=== PATIENT | female | born 1945 | race Caucasian/White ===

== ENCOUNTER 2023-11-30 13:13 | Outpatient (AMB) | payer MEDICARE, SELFPAY ==
--- NOTE | 2023-11-30 13:11 | MHC.PC.OV ---
Vital Signs 11/30/23 13:45 Height 17.32 in Weight 136 lb 6 oz BMI 319.6 BP 128/72 Blood Pressure Location Lt brachial Position Sitting Pulse 98 Pulse Source Pulse Oximeter Temp 98.3 F Temp Source Oral Pulse Oximetry (%) 96 Oxygen Delivery Method Room Air Intake Visit Reasons: Establish Care transfer from [facility] Intake Note: New patient visit . heart murmur noticed before bladder botox. SOB walking up the stairs. Tower Operator Required: No Accompanied by: Daughter Allergies cefdinir Allergy (Unknown, Verified 11/30/23 13:13) Rash Sulfa (Sulfonamide Antibiotics) Allergy (Unknown, Verified 11/30/23 13:13) Itching trimethoprim Allergy (Unknown, Verified 11/30/23 13:13) Rash Tobacco use date assessed: 11/30/23 Fall risk assessment: 1 Fall in past year Last assessed Fall Risk: 11/30/23 Dental Screening Dental Screen Date: 11/30/23 Did you have a dental visit in the last 12 months?: Yes Did you have a dental problem in the last 6 months where you did not have access to dental care?: No Was dental information given to patient?: Patient has dentist HPI HPI Comments History of Present Illness Details 78 y/o female with a past medical history of parkinsons, diabetes, depression, asthma/copd, OAB, recurrent UTI presenting for follow up Continues to follow with neurology for Parkinsons. No recent medication changes Depression is well controlled on sertraline Diabetes is well controlled on glipizide. On ARB. utd eye exam [facility] Medical History (Updated 12/05/23 @ 10:51 by Andree Lindquist MD) Type 2 diabetes mellitus Spinal stenosis Seasonal allergies Parkinson disease Muscle cramps Moderate aortic stenosis (~11/30/23) Hypertension History of DVT (deep vein thrombosis) High cholesterol Frequent UTI Dysphagia COVID-19 Atypical chest pain Arthritis Anxiety Angina pectoris Family History (Updated 11/30/23 @ 13:40 by Afia Roman CMA) Father Substance abuse Alcoholism Social History (Updated 11/30/23 @ 13:41 by Afia Roman CMA) [facility] Patient Tobacco Use Status: Former Tobacco user Cigarette Packs Per Day: 1.5 Years Smoked: 34 years e-Cigarette/Vaping Use: Never Used Second Hand Smoke Exposure: Yes service: No Current occupational status: retired Cognitive needs: No Hearing needs: No Vision needs: Yes (reading glasses) Questionnaire PHQ-9 Over the last 2 weeks, how often have you been bothered by any of the following problems? 1. Little interest or pleasure in doing things: not at all 2. Feeling down, depressed, or hopeless: not at all 3. Trouble falling or staying asleep, or sleeping too much: more than half the days 4. Feeling tired or having little energy: more than half the days 5. Poor appetite or overeating: not at all 6. Feeling bad about yourself - or that you are a failure or have let yourself or your family down: not at all 7. Trouble concentrating on things, such as reading the newspaper or watching television: not at all 8. Moving or speaking so slowly that other people could have noticed. Or the opposite - being so fidgety or restless that you have been moving around a lot more than usual: not at all 9. Thoughts that you would be better off or of hurting yourself in some way: not at all Total score: 4 Depression Screening Interpretation: Positive Depression Screening Done: Yes 61617 - PHQ-9 Billing: Yes Source: Developed by Drs. Eduardo Foss, Sara Mcclure, Pascual Willoughby and colleagues, with an educational jamee from [employer]. Thrive Questionnaire Date Thrive assessed: 11/30/23 I am a: Patient What is your living situation today?: I have a steady place to live Within the past 12 months, did the food you bought not last and you didn't have the money to get more?: Never true Within the past 12 months, did you worry whether your food would run out before you got money to buy more?: Never true Do you have trouble paying for medicines?: No Do you have trouble getting transportation to medical appointments?: No Do you have trouble paying your heating and electricity bill?: No Do you have trouble taking care of your child, family member or friend?: No Do you have trouble with day-to-day activities such as bathing, preparing meals, shopping, managing finances, etc.?: No Are you currently unemployed and looking for a job?: No Are you interested in more education?: No Please select the resources that you would like help with: None Currently or been in a relationship where the following occur: no concerns reported THRIVE Score: 0 AUDIT C Alcohol Use Questionnaire (AUDIT-C) 1. How often do you have a drink containing alcohol?: Never 3. How often do you have six or more drinks on one occasion?: Never Total Score: 0 DREW-7 AMB Questionnaire DREW-7 Date DREW - 7 assessed: 11/30/23 Feeling nervous, anxious, or on edge: 0 = Not at all Not being able to stop or control worryin = Not at all Worrying too much about different things: 0 = Not at all Trouble relaxin = Not at all Being so restless that it is hard to sit still: 0 = Not at all Becoming easily annoyed or irritable: 0 = Not at all Feeling afraid as if something awful might happen: 0 = Not at all Total DREW-7 score (0-4 normal; 5-9 mild; 10-14 moderate; 15-21 severe): 0 Source: Developed by Drs. Eduardo Foss, Sara Mcclure, Pascual Willoughby and colleagues, with an educational jamee from [employer]. DREW-7 Assessment Billing DREW-7 Assessment Tool: DREW-7 Assessment 04103 Review of Systems Const Details: ROS CONSTITUTIONAL: Denies weight loss, fever and chills. HEENT: Denies changes in vision and hearing. RESPIRATORY: Denies SOB and cough. CV: Denies palpitations and CP GI: Denies abdominal pain, nausea, vomiting and diarrhea. : Denies dysuria and urinary frequency. MSK: Denies new myalgia and joint pain. SKIN: Denies rash and pruritus. NEUROLOGICAL: Denies headache PSYCHIATRIC: Denies recent changes in mood. Physical exam (Primary Care) Vital Signs: Last Vital Signs Temp 98.3 F 11/30/23 13:45 Pulse 98 11/30/23 13:45 BP 128/72 11/30/23 13:45 Pulse Ox 96 11/30/23 13:45 Oxygen Delivery Method Room Air 11/30/23 13:45 PHYSICAL EXAM: GENERAL: Alert and oriented x 3. NAD EYES: EOMI. Anicteric. HENT: Moist mucous membranes. No scleral icterus. No cervical lymphadenopathy. LUNGS: Clear to auscultation bilaterally. CARDIOVASCULAR: Regular rate and rhythm. 4/5 systolic murmur ABDOMEN: Soft, non-tender +bs EXTREMITIES: No edema. Non-tender. SKIN: No rashes or lesions. Warm. NEUROLOGIC: No focal neurological deficits. PSYCHIATRIC: Cooperative. Appropriate mood and affect BMI result Body Mass Index 319.6 Tobacco/Smoking Status: Tobacco use Status Tobacco use date assessed 11/30/23 11/30/23 13:43 Patient Tobacco Use Status Former Tobacco user 11/30/23 13:43 e-Cigarette/Vaping Use Never Used 11/30/23 13:43 PHQ-9: PHQ-9 Score PHQ-9: Total score 4 11/30/23 13:52 Depression Screening Interpretation: Positive Thrive Assessment: Date of Thrive Assessment Date Thrive assessed 11/30/23 11/30/23 13:52 Currently or been in a relationship where the following occur: no concerns reported Assessment and Plan Assessment & Plan (1) Hypertension: Comment: adequately controlled Code(s): I10 - Essential (primary) hypertension Qualifiers: Hypertension type: primary hypertension Qualified Code(s): I10 - Essential (primary) hypertension (2) Moderate aortic stenosis: Onset Date: ~11/30/23 Comment: Echo ordered Code(s): I35.0 - Nonrheumatic aortic (valve) stenosis (3) Parkinson disease: Code(s): G20.A1 - Parkinson's disease without dyskinesia, without mention of fluctuations Qualifiers: Dyskinesia presence: unspecified whether dyskinesia Fluctuating manifestations: with fluctuating manifestations Qualified Code(s): G20.A2 - Parkinson's disease without dyskinesia, with fluctuations (4) Type 2 diabetes mellitus: Code(s): E11.9 - Type 2 diabetes mellitus without complications Qualifiers: Diabetes mellitus concrete paving machine operator insulin use: without concrete paving machine operator use Diabetes mellitus complication status: with neurologic complications Diabetes mellitus complication detail: with polyneuropathy Qualified Code(s): E11.42 - Type 2 diabetes mellitus with diabetic polyneuropathy Orders: Orders CA echo transthoracic complete 11/30/23 E11.9 - Type 2 diabetes mellitus without complications, G20.A1 - Parkinson's disease without dyskinesia, without mention of fluctuations, I10 - Essential (primary) hypertension, I35.0 - Nonrheumatic aortic (valve) stenosis IRON PROFILE 11/30/23 E11.9 - Type 2 diabetes mellitus without complications, G20.A1 - Parkinson's disease without dyskinesia, without mention of fluctuations, I10 - Essential (primary) hypertension, I35.0 - Nonrheumatic aortic (valve) stenosis Complete Blood Count Auto Diff 11/30/23 E11.9 - Type 2 diabetes mellitus without complications, G20.A1 - Parkinson's disease without dyskinesia, without mention of fluctuations, I10 - Essential (primary) hypertension, I35.0 - Nonrheumatic aortic (valve) stenosis Hemoglobin A1c 11/30/23 E11.9 - Type 2 diabetes mellitus without complications, G20.A1 - Parkinson's disease without dyskinesia, without mention of fluctuations, I10 - Essential (primary) hypertension, I35.0 - Nonrheumatic aortic (valve) stenosis Medications: New sertraline 100 mg PO DAILY 90 tabs 3RF 90 days Coding Level of Care Code Est Pt Level 5 (14559) Diagnoses Primary hypertension I10 Hypertension type: primary hypertension Moderate aortic stenosis I35.0 Parkinson's disease with fluctuating manifestations, unspecified whether dyskinesia present G20.A2 Dyskinesia presence: unspecified whether dyskinesia Fluctuating manifestations: with fluctuating manifestations Type 2 diabetes mellitus with diabetic polyneuropathy, without long-term current use of insulin E11.42 Diabetes mellitus concrete paving machine operator insulin use: without concrete paving machine operator use Diabetes mellitus complication status: with neurologic complications Diabetes mellitus complication detail: with polyneuropathy Additional Codes DREW-7 Assessment Billing - DREW-7 Assessment Tool: DREW-7 Assessment 55118 ([id number]) Time Spent (min) 65
[2023-11-30 13:45] VITALS: BP 128/72; PULSE 98; TEMP 36.8; O2SAT 96; BMI 319.6
== END 2023-11-30 14:14 | disposition home or self-care (01) ==
PROVIDERS: PCP Internal Medicine; Visit Provider Internal Medicine
DX: I10 Essential (primary) hypertension (principal); I35.0 Nonrheumatic aortic (valve) stenosis; G20.A2 Parkinson's disease without dyskinesia, with fluctuations; E11.42 Type 2 diabetes mellitus with diabetic polyneuropathy
CPT/HCPCS: 99215

== ENCOUNTER 2023-12-10 10:09 | Outpatient (REF) | payer MEDICARE, OTHER, SELFPAY ==
[2023-12-10 11:21] LABS: MANUAL DIFF FLAG NO
[2023-12-10 11:27] LABS: Basophils Percent Auto 0.2 % (0-2); Eosinophils Absolute Auto 0.2 X10*3/uL (0.0-0.4); Eosinophils Percent Auto 2.4 % (0-4); Hematocrit 34.9 % (37.0-47.0); Hemoglobin 10.7 g/dl (12.0-16.0); Imm Gran Abs Auto 0.01 X10*3/uL (0.00-0.03); Imm Gran Pct Auto 0.2 % (0.0-0.4); Lymphocytes Absolute Auto 1.2 X10*3/uL (1.2-4.9); Lymphocytes Percent Auto 18.1 % (20-40); Mean Corpuscular HGB Conc 30.7 g/dl (31.0-35.0); Mean Corpuscular Hemoglobin 24.6 pg (27.0-33.0); Mean Corpuscular Volume 80.2 fL (80.0-98.0); Mean Platelet Volume 10.4 fL (9.4-12.3); Monocytes Absolute Auto 0.4 X10*3/uL (0.1-1.2); Monocytes Percent Auto 6.3 % (2-11); Neutrophils Absolute Auto 4.6 x10*3/uL (2.0-8.3); Neutrophils Percent Auto 72.8 % (45-73); Platelet Count 277 X10*3/uL (160-400); Red Blood Count 4.35 X10*6/uL (4.20-5.50); Red Cell Distribution Width 16.9 % (11.0-16.0); White Blood Count 6.3 X10*3/uL (4.8-10.8)
[2023-12-10 11:35] LABS: Estimated Average Glucose 131 mg/dL; Hemoglobin A1c % 6.2 % (<6.0)
[2023-12-10 12:12] LABS: Iron 22 mcg/dL (30-160); Percent Iron Saturation 5 % (15-50); Total Iron Binding Capacity 457 mcg/dL (228-428); Unsaturated Iron Binding 435 ug/dL
== END 2023-12-10 10:10 | disposition home or self-care (01) ==
LOC: HO.WFDLDS 10:09
PROVIDERS: Visit Provider Internal Medicine
DX: I35.0 Nonrheumatic aortic (valve) stenosis (principal); I10 Essential (primary) hypertension; E11.9 Type 2 diabetes mellitus without complications; G20.A1 Parkinson's disease without dyskinesia, without mention of fluctuations
CPT/HCPCS: 36415; 83036; 83540; 85025

== ENCOUNTER 2024-05-30 08:04 | Outpatient (AMB) | payer MEDICARE, OTHER, SELFPAY ==
--- NOTE | 2024-05-30 08:10 | MHC.PC.OV ---
Intake Visit Reasons: cpe coming in at 8 (r/s from 05/29/24) Intake Note: Medical Wellnness visit. Having valve replacement surgery coming up. Paper Hanger Required: No Allergies cefdinir Allergy (Unknown, Verified 05/30/24 08:19) Rash Sulfa (Sulfonamide Antibiotics) Allergy (Unknown, Verified 05/30/24 08:19) Itching trimethoprim Allergy (Unknown, Verified 05/30/24 08:19) Rash Tobacco use date assessed: 11/30/23 Fall risk assessment: 2 + Falls in past year Last assessed Fall Risk: 05/30/24 Dental Screening Dental Screen Date: 11/30/23 HPI HPI Comments History of Present Illness Details 78 y/o female with a past medical history of parkinsons, diabetes, depression, asthma/copd, OAB, recurrent UTI presenting for AWV Continues to follow with neurology for Parkinsons in [place]. Appt later today. Goes to speech therapy there as well. No recent medication changes Depression is well controlled on sertraline Diabetes is well controlled on glipizide. On ARB. utd eye exam. A1C today is 6.4%. GI: Follows with Dr Pereira. History of biliary cirrhosis, diverticulosis. Sees 2x/year Following with cardiology. Upcoming TAVR. Mammogram-Jul due Memory 09/11 No recent falls HRA Needs help with travel, bathing, dressing, driving otherwise independent ROS CONSTITUTIONAL: Denies weight loss, fever and chills. HEENT: Denies changes in vision and hearing. RESPIRATORY: Denies SOB and cough. CV: Denies palpitations and CP GI: Denies abdominal pain, nausea, vomiting and diarrhea. : Denies dysuria and urinary frequency. MSK: Denies new myalgia and joint pain. SKIN: Denies rash and pruritus. NEUROLOGICAL: Denies headache PSYCHIATRIC: Denies recent changes in mood. PHYSICAL EXAM: GENERAL: Alert and oriented x 3. NAD EYES: EOMI. Anicteric. HENT: Moist mucous membranes. No scleral icterus. No cervical lymphadenopathy. LUNGS: Clear to auscultation bilaterally. CARDIOVASCULAR: Regular rate and rhythm. No murmur. No JVD. ABDOMEN: Soft, non-tender +bs EXTREMITIES: No edema. Non-tender. SKIN: No rashes or lesions. Warm. NEUROLOGIC: No focal neurological deficits. resting tremor PSYCHIATRIC: Cooperative. Appropriate mood and affect [facility] Medical History (Updated 05/30/24 @ 13:39 by Andree Lindquist MD) Type 2 diabetes mellitus Spinal stenosis Seasonal allergies Parkinson disease Muscle cramps Moderate aortic stenosis (~11/30/23) Hypertension History of DVT (deep vein thrombosis) High cholesterol Frequent UTI Dysphagia COVID-19 Atypical chest pain Arthritis Anxiety Angina pectoris Family History Father Substance abuse Alcoholism Social History (Updated 05/30/24 @ 08:26 by fAia Roman CMA) Housing: Condominium Alcohol intake: former Patient Tobacco Use Status: Former Tobacco user Cigarette Packs Per Day: 1.5 Years Smoked: 34 years e-Cigarette/Vaping Use: Never Used Second Hand Smoke Exposure: Yes service: No Current occupational status: retired Cognitive needs: No Hearing needs: No Vision needs: Yes (reading glasses) Questionnaire PHQ-9 Over the last 2 weeks, how often have you been bothered by any of the following problems? 1. Little interest or pleasure in doing things: not at all Source: Developed by Drs. Eduardo Foss, Sara Mcclure, Pascual Willoughby and colleagues, with an educational jamee from [employer]. Thrive Questionnaire Date Thrive assessed: 11/30/23 DREW-7 AMB Questionnaire DREW-7 Date DREW - 7 assessed: 11/30/23 Source: Developed by Drs. Eduardo Foss, Pascual Rosado and colleagues, with an educational jamee from [employer]. Physical exam (Primary Care) Tobacco/Smoking Status: Tobacco use Status Tobacco use date assessed 11/30/23 05/30/24 08:11 Patient Tobacco Use Status Former Tobacco user 05/30/24 08:26 e-Cigarette/Vaping Use Never Used 05/30/24 08:26 Thrive Assessment: Date of Thrive Assessment Date Thrive assessed 11/30/23 05/30/24 08:11 Results AMB Hemoglobin A1c AMB Hemoglobin A1c 6.4 % Last Edit by Afia Roman CMA on 05/30/24 08:36 Results Reviewed Results Reviewed: Laboratory Last Values Hgb A1c (Clinic) 6.4 % (4.0-6.0) H 05/30/24 08:27 Coding Level of Care Code Est Pt Level 4 (67722) Diagnoses Encounter for annual wellness visit (AWV) in Medicare patient Z00.00 Parkinson's disease with fluctuating manifestations, unspecified whether dyskinesia present G20.A2 Dyskinesia presence: unspecified whether dyskinesia Fluctuating manifestations: with fluctuating manifestations Type 2 diabetes mellitus with diabetic polyneuropathy, without long-term current use of insulin E11.42 Diabetes mellitus complication detail: with polyneuropathy Diabetes mellitus complication status: with neurologic complications Diabetes mellitus half-way insulin use: without director long term care use Assessment & Plan Assessment & Plan (1) Encounter for annual wellness visit (AWV) in Medicare patient: Code(s): Z00.00 - Encounter for general adult medical examination without abnormal findings Category: Medical Plan: HRA reviewed. Care team updated Medication list reconciled Has HCP in place (2) Parkinson disease: Code(s): G20.A1 - Parkinson's disease without dyskinesia, without mention of fluctuations Category: Medical Qualifiers: Dyskinesia presence: unspecified whether dyskinesia Fluctuating manifestations: with fluctuating manifestations Qualified Code(s): G20.A2 - Parkinson's disease without dyskinesia, with fluctuations Plan: continue neurology follow up (3) Type 2 diabetes mellitus: Code(s): E11.9 - Type 2 diabetes mellitus without complications Category: Medical Qualifiers: Diabetes mellitus complication detail: with polyneuropathy Diabetes mellitus complication status: with neurologic complications Diabetes mellitus director long term care insulin use: without director long term care use Qualified Code(s): E11.42 - Type 2 diabetes mellitus with diabetic polyneuropathy Plan: Well controlled. Orders: Orders AMB Hemoglobin A1c Today E11.42 - Type 2 diabetes mellitus with diabetic polyneuropathy Comprehensive Met. Panel Today D64.9 - Anemia, unspecified, E11.42 - Type 2 diabetes mellitus with diabetic polyneuropathy Vitamin D 1,25 dihydroxy Today D64.9 - Anemia, unspecified, E11.42 - Type 2 diabetes mellitus with diabetic polyneuropathy IRON PROFILE Today D64.9 - Anemia, unspecified, E11.42 - Type 2 diabetes mellitus with diabetic polyneuropathy Complete Blood Count Auto Diff Today D64.9 - Anemia, unspecified, E11.42 - Type 2 diabetes mellitus with diabetic polyneuropathy MM screening mammo BI Today Z12.31 - Encounter for screening mammogram for malignant neoplasm of breast Medications: New pantoprazole 40 mg PO DAILY 90 tabs 3RF losartan 75 mg (1.5 x 50 mg) PO DAILY 90 tabs 3RF Lactobacillus acidophilus 100 mmu cells PO DAILY 90 caps 3RF Changed From metformin ER 2 tab oral am, 1 tab oral pm 270 tabs 5RF To metformin ER 500 mg PO DAILY 90 tabs 3RF 90 days
== END 2024-05-30 08:54 | disposition home or self-care (01) ==
LOC: HO.HMCFM 08:04
PROVIDERS: PCP Internal Medicine; Visit Provider Internal Medicine
DX: Z00.00 Encounter for general adult medical examination without abnormal findings (principal); G20.A2 Parkinson's disease without dyskinesia, with fluctuations; E11.42 Type 2 diabetes mellitus with diabetic polyneuropathy

== ENCOUNTER 2024-05-30 09:06 | Outpatient (REF) | payer MEDICARE, OTHER, SELFPAY ==
[2024-05-30 11:09] LABS: MANUAL DIFF FLAG NO
[2024-05-30 11:21] LABS: Basophils Percent Auto 0.2 % (0-2); Eosinophils Absolute Auto 0.1 X10*3/uL (0.0-0.4); Eosinophils Percent Auto 1.8 % (0-4); Hematocrit 32.7 % (37.0-47.0); Hemoglobin 10.2 g/dl (12.0-16.0); Imm Gran Abs Auto 0.01 X10*3/uL (0.00-0.03); Imm Gran Pct Auto 0.2 % (0.0-0.4); Lymphocytes Absolute Auto 1.1 X10*3/uL (1.2-4.9); Mean Corpuscular HGB Conc 31.2 g/dl (31.0-35.0); Mean Corpuscular Hemoglobin 25.2 pg (27.0-33.0); Mean Corpuscular Volume 80.9 fL (80.0-98.0); Mean Platelet Volume 10.2 fL (9.4-12.3); Monocytes Absolute Auto 0.6 X10*3/uL (0.1-1.2); Monocytes Percent Auto 8.8 % (2-11); Neutrophils Absolute Auto 4.5 x10*3/uL (2.0-8.3); Platelet Count 310 X10*3/uL (160-400); Red Blood Count 4.04 X10*6/uL (4.20-5.50); White Blood Count 6.3 X10*3/uL (4.8-10.8)
[2024-05-30 11:34] LABS: Alanine Aminotransferase < 6 U/L (0-31); Albumin Level 4.2 g/dL (3.5-5.0); Alkaline Phosphatase 56 U/L (39-117); Anion Gap 10 (12-20); Aspartate Amino Transferase 23 U/L (5-31); Bilirubin Total 0.2 mg/dL (0.0-1.0); Blood Urea Nitrogen 33 mg/dL (9-16); Calcium 9.5 mg/dL (8.4-10.2); Carbon Dioxide 26 mmol/L (22-29); Chloride 108 mmol/L (96-108); Estimated Glomerular Filt Rate 46; Glucose Random 110 mg/dL (60-115); Iron 26 mcg/dL (30-160); Percent Iron Saturation 5 % (15-50); Potassium 4.4 mmol/L (3.3-5.1); Sodium 140 mmol/L (135-145); Total Iron Binding Capacity 489 mcg/dL (228-428); Total Protein 7.2 g/dL (6.5-8.0); Unsaturated Iron Binding 463 ug/dL
[2024-06-03 16:27] LABS: VITAMIN D (1,25 OH) D3 27 pg/mL; Vit D (1,25-Dihydroxy) Total 27 pg/mL (18-72); Vitamin D (1,25 OH) D2 <8 pg/mL
== END 2024-05-30 09:07 | disposition home or self-care (01) ==
LOC: HO.WFDLDS 09:06
PROVIDERS: Visit Provider Internal Medicine
DX: D64.9 Anemia, unspecified (principal); E11.42 Type 2 diabetes mellitus with diabetic polyneuropathy; Z00.00 Encounter for general adult medical examination without abnormal findings; G20.A2 Parkinson's disease without dyskinesia, with fluctuations; Z79.84 Long term (current) use of oral hypoglycemic drugs; Z79.899 Other long term (current) drug therapy
CPT/HCPCS: 36415; 80053; 82652; 83036; 83540; 85025; 99212

== ENCOUNTER 2024-08-15 11:13 | Outpatient (AMB) | payer MEDICARE, OTHER, SELFPAY ==
--- NOTE | 2024-08-15 11:21 | A.OFFPC_ITS ---
Intake Visit Reasons: [facility] 07/11-07/15 Intake Note: Hospital follow up Allergies cefdinir Allergy (Unknown, Verified 08/15/24 11:22) Rash Sulfa (Sulfonamide Antibiotics) Allergy (Unknown, Verified 08/15/24 11:22) Itching trimethoprim Allergy (Unknown, Verified 08/15/24 11:22) Rash Tobacco use date assessed: 11/30/23 Dental Screening Dental Screen Date: 11/30/23 HPI HPI Comments History of Present Illness Details 78 y/o female with a past medical histor y of parkinsons, diabetes, depression, asthma/copd, OAB, recurrent UTI presenting for hospital discharge follow up She was hospitalized 07/11-07/15/24 at [facility]. She underwent sched uled TAVR for severe aortic stenosis. Dr Mchugh, Dr Nicholas. Course was complicated by CVA-she developed acute left sided weakness. MRI showed evidence of embolic CVA. [facility]. Still getting PT/OT/Speech. She has made good gains with therapy and has gotten a lot of mobility back. Neuro: Recent CVA as above. Has f/up with [facility] neurology in September. Continues to follow with neurology for Parkinsons in [place]. Stable parkinsons. CV: TAVR. Follow up cardiology -had Aug 07 and seeing again Aug 17 Depression is well controlled on sertraline Diabetes is well controlled on glipizide. On ARB. utd eye exam. A1C today is 6.4%. GI: Follows with Dr Pereira. History of biliary cirrhosis, diverticulosis. Sees 2x/year. Appt Aug 31. Uro: Following with urogynecology. Has appt with [facility] on Sep 04. Mammogram-Jul due ROS CONSTITUTIONAL: Denies weight loss, fever and chills. HEENT: Denies changes in vision and hearing. RESPIRATORY: Denies SOB and cough. CV: Denies palpitations and CP GI: Denies abdominal pain, nausea, vomiting and diarrhea. : Denies dysuria and urinary frequency. MSK: Denies new myalgia and joint pain. SKIN: Denies rash and pruritus. NEUROLOGICAL: Denies headache PSYCHIATRIC: Denies recent changes in mood. PHYSICAL EXAM: GENERAL: Alert and oriented x 3. NAD EYES: EOMI. Anicteric. HENT: Moist mucous membranes. No scleral icterus. No cervical lymphadenopathy. LUNGS: Clear to auscultation bilaterally. CARDIOVASCULAR: Regular rate and rhythm. No murmur. No JVD. ABDOMEN: Soft, non-tender +bs EXTREMITIES: No edema. Non-tender. SKIN: No rashes or lesions. Warm. NEUROLOGIC: Improving left sided weakness. resting tremor PSYCHIATRIC: Cooperative. Appropriate mood and affect [facility] Medical History (Updated 08/17/24 @ 09:22 by Andree Lindquist MD) Type 2 diabetes mellitus Spinal stenosis Seasonal allergies Parkinson disease Muscle cramps Moderate aortic stenosis (~11/30/23) Hypertension History of DVT (deep vein thrombosis) High cholesterol Frequent UTI Dysphagia COVID-19 Atypical chest pain Arthritis Anxiety Angina pectoris Surgical History (Updated 08/17/24 @ 09:22 by Andree Lindquist MD) S/P TVR (tricuspid valve replacement) Family History Father Substance abuse Alcoholism Social History (Updated 08/15/24 @ 11:29 by Afia Roman CMA) Housing: Condominium Alcohol intake: former Patient Tobacco Use Status: Former Tobacco user Cigarette Packs Per Day: 1.5 Years Smoked: 34 years e-Cigarette/Vaping Use: Never Used Second Hand Smoke Exposure: Yes service: No Current occupational status: retired Cognitive needs: No Hearing needs: No Vision needs: Yes (reading glasses) Questionnaire PHQ-9 Over the last 2 weeks, how often have you been bothered by any of the following problems? 1. Little interest or pleasure in doing things: not at all 2. Feeling down, depressed, or hopeless: not at all 3. Trouble falling or staying asleep, or sleeping too much: not at all 4. Feeling tired or having little energy: nearly every day 5. Poor appetite or overeating: not at all 6. Feeling bad about yourself - or that you are a failure or have let yourself or your family down: not at all 7. Trouble concentrating on things, such as reading the newspaper or watching television: not at all 8. Moving or speaking so slowly that other people could have noticed. Or the opposite - being so fidgety or restless that you have been moving around a lot more than usual: nearly every day 9. Thoughts that you would be better off or of hurting yourself in some way: not at all Total score: 6 Depression Screening Interpretation: Positive Depression Screening Follow-up: Existing condition Depression Screening Done: Yes 72945 - PHQ-9 Billing: Yes Source: Developed by Drs. Eduardo Foss, Sara Mcclure, Pascual Willoughby and colleagues, with an educational jamee from [employer]. Thrive Questionnaire Date Thrive assessed: 11/30/23 I am a: Parent/Caregiver What is your living situation today?: I have a steady place to live Within the past 12 months, did the food you bought not last and you didn't have the money to get more?: Never true Within the past 12 months, did you worry whether your food would run out before you got money to buy more?: Never true Do you have trouble paying for medicines?: No Do you have trouble getting transportation to medical appointments?: No Do you have trouble paying your heating and electricity bill?: I choose not to answer this question Do you have trouble taking care of your child, family member or friend?: No Do you have trouble with day-to-day activities such as bathing, preparing meals, shopping, managing finances, etc.?: No Are you currently unemployed and looking for a job?: No Are you interested in more education?: No Please select the resources that you would like help with: None Currently or been in a relationship where the following occur: No concerns reported THRIVE Score: 0 AUDIT C Alcohol Use Questionnaire (AUDIT-C) 1. How often do you have a drink containing alcohol?: Never Total Score: 0 DREW-7 AMB Questionnaire DREW-7 Date DREW - 7 assessed: 11/30/23 Feeling nervous, anxious, or on edge: 2 = More than half the days Not being able to stop or control worryin = Not at all Worrying too much about different things: 2 = More than half the days Trouble relaxin = Several days Being so restless that it is hard to sit still: 0 = Not at all Becoming easily annoyed or irritable: 0 = Not at all Feeling afraid as if something awful might happen: 0 = Not at all Total DREW-7 score (0-4 normal; 5-9 mild; 10-14 moderate; 15-21 severe): 5 Source: Developed by Drs. Eduardo Foss, Sara Mcclure, Pascual Willoughby and colleagues, with an educational jamee from [employer]. Physical exam (Primary Care) Tobacco/Smoking Status: Tobacco use Status Tobacco use date assessed 11/30/23 08/15/24 11:24 Patient Tobacco Use Status Former Tobacco user 08/15/24 11:29 e-Cigarette/Vaping Use Never Used 08/15/24 11:29 PHQ-9: PHQ-9 Score PHQ-9: Total score 6 08/16/24 12:54 Depression Screening Interpretation: Positive Depression Screening Follow-up: Existing condition Thrive Assessment: Date of Thrive Assessment Date Thrive assessed 11/30/23 08/15/24 11:24 Currently or been in a relationship where the following occur: No concerns reported Coding Level of Care Code Est Pt Level 5 (64707) Complex EM visit Add On G2211 Diagnoses Hospital discharge follow-up Z09 History of CVA (cerebrovascular accident) Z86.73 S/P TAVR (transcatheter aortic valve replacement) Z95.2 Additional Codes PHQ-9 - 41995 - PHQ-9 Billing: Yes ([id number]) Time Spent (min) 55 Assessment & Plan Assessment & Plan (1) Hospital discharge follow-up: Code(s): Z09 - Encounter for follow-up examination after completed treatment for conditions other than malignant neoplasm Category: Medical Plan: Hospital course reviewed Medications reconciled Continue home services Monitor labs (2) History of CVA (cerebrovascular accident): Code(s): Z86.73 - Personal history of transient ischemic attack (TIA), and cerebral infarction without residual deficits Category: Medical Plan: has appropriate follow up in place Continues AC Residual CVA effects though improving with therapy (3) S/P TAVR (transcatheter aortic valve replacement): Code(s): Z95.2 - Presence of prosthetic heart valve Category: Surgical Plan: continue cardiology follow up. Tolerated procedure well Orders: Orders IRON PROFILE 08/15/24 E11.42 - Type 2 diabetes mellitus with diabetic polyneuropathy, I10 - Essential (primary) hypertension, I35.0 - Nonrheumatic aortic (valve) stenosis Comprehensive Met. Panel 08/15/24 E11.42 - Type 2 diabetes mellitus with diabetic polyneuropathy, I10 - Essential (primary) hypertension, I35.0 - Nonrheumatic aortic (valve) stenosis Complete Blood Count Auto Diff 08/15/24 E11.42 - Type 2 diabetes mellitus with diabetic polyneuropathy, I10 - Essential (primary) hypertension, I35.0 - Nonrheumatic aortic (valve) stenosis Magnesium 08/15/24 E11.42 - Type 2 diabetes mellitus with diabetic polyneuropathy, I10 - Essential (primary) hypertension, I35.0 - Nonrheumatic aortic (valve) stenosis UA CC w/rflx Micro + Cult 08/16/24 R30.0 - Dysuria Medications: New nitrofurantoin macrocrystal must administer with a meal/food 100 mg PO BID 7 days 14 caps 0RF
--- OUTSIDE RECORDS SUMMARY | 2024-08-15 12:08 | XMS_ITS | Encounter Summary ---
Author Organization [facility] Address [address] [place] [address] Care Team Providers Care Beef Grinder Name Role Phone Andree Lindquist MD Primary Care Provider [phone] Encounter Details Date Type Department Care Team (Late st Contact Info) Description 07/24/2024 Lab Requisition [facility] - Main Lab [address] [place] [id number] Mayo Donnelly MD [address] [place] [id number] Encounter for other general examination Social History Tobacco Use Types Packs/Day Years Used Date Smoking Tobacco: Former Cigarettes Q uit: 07/12/1998 Smokeless Tobacco: Never Alcohol Use Standard Drinks/Week Comments No 0 (1 standard drink = 0.6 oz pur e alcohol) Sex and Gender Information Value Date Recorded Sex Assigned at Not on file Gender Identity Not on file Sexual Orientation Not on file documented as of this encounter Plan of Treatment Not on file documented as of this encounter Procedures Procedure Name Priority Date/Time Associated Diagnosis Comments COMPLETE BLOOD COUNT Routine 07/24/2024 5:17 AM EST Encounter for other general examination COMPREHENSIVE METABOLIC PANEL Routine 07/24/2024 5:17 AM EST Encounter for other general examination documented in this encounter Results * (ABNORMAL) Complete blood count (07/24/2024 5:17 AM EST) WBC 6.4 4.8 - 10.8 /[facility] LAB HEMETOLOGY METHOD 07/24/2024 11:31 AM EST [facility] RBC 3.90 3.80 - 4.80 M/mcL LAB HEMETOLOGY METHOD 07/24/2024 11:31 AM [facility] Hemoglobin 9.4(L) 11.5 - 16.0 g/dL LAB HEMETOLOGY METHOD 07/24/2024 11:31 AM [facility] Hematocrit 31.7(L) 35.0 - 47.0 % LAB HEMETOLOGY METHOD 07/24/2024 11:31 AM [facility] MCV 81.1 79.0 - 98.0 FL LAB HEMETOLOGY METHOD 07/24/2024 11:31 AM [facility] MCH 24.0(L) 27.0 - 32.0 pcg LAB HEMETOLOGY METHOD 07/24/2024 11:31 AM [facility] MCHC 29.7(L) 32.0 - 37.0 g/dL LAB HEMETOLOGY METHOD 07/24/2024 11:31 AM [facility] RDW 15.5(H) 11.0 - 15.0 % LAB HEMETOLOGY METHOD 07/24/2024 11:31 AM [facility] Platelets 315 130 - 400 K/mcL LAB HEMETOLOGY METHOD 07/24/2024 11:31 AM [facility] MPV 10.5 7.0 - 11.0 FL LAB HEMETOLOGY METHOD 07/24/2024 11:31 AM [facility] NRBC 0.0 <1.0 % LAB HEMETOLOGY METHOD 07/24/2024 11:31 AM [facility] NRBC Absolute 0.00 <0.10 K/mcL LAB HEMETOLOGY METHOD 07/24/2024 11:31 AM [facility] Blood Venous blood specimen / Unknown Venipuncture / Unknown 07/24/2024 5:17 AM EST 07/24/2024 10:19 AM EST Mayo Donnelly MD LAB BLOOD ORDERABLES [facility] [address] [place] [address], * (ABNORMAL) Comprehensive metabolic panel (07/24/2024 5:17 AM EST) Sodium 132(L) 133 - 145 mmol/L LAB CHEMISTRY METHOD 07/24/2024 12:19 PM [facility] Potassium 5.7(H) 3.5 - 5.5 mmol/L LAB CHEMISTRY METHOD 07/24/2024 12:19 PM [facility] Chloride 108 96 - 110 mmol/L LAB CHEMISTRY METHOD 07/24/2024 12:19 PM [facility] CO2 18(L) 21 - 32 mmol/L LAB CHEMISTRY METHOD 07/24/2024 12:19 PM [facility] Anion Gap 6 3 - 11 LAB CHEMISTRY METHOD 07/24/2024 12:19 PM [facility] Glucose 90 70 - 100 mg/dL LAB CHEMISTRY METHOD 07/24/2024 12:19 PM [facility] BUN 74(H) 5 - 25 mg/dL LAB CHEMISTRY METHOD 07/24/2024 12:19 PM [facility] Creatinine 1.54(H) 0.50 - 1.10 mg/dL LAB CHEMISTRY METHOD 07/24/2024 12:19 PM [facility] eGFR 35(L) >=60 mL/min/1. 73m2 LAB CHEMISTRY METHOD 07/24/2024 12:19 PM [facility] Comment:Calculation based on the??Chronic Kidney Disease Epidemiology Collaboration (CKD-EPI) equation refit??without adjustment for race. BUN/Creatinine Ratio 48.1 LAB CHEMISTRY METHOD 07/24/2024 12:19 PM [facility] Calcium 9.3 8.5 - 10.5 mg/dL LAB CHEMISTRY METHOD 07/24/2024 12:19 PM [facility] AST (SGOT) 20 10 - 42 unit/L LAB CHEMISTRY METHOD 07/24/2024 12:19 PM [facility] ALT (SGPT) 15 10 - 60 unit/L LAB CHEMISTRY METHOD 07/24/2024 12:19 PM [facility] Alkaline Phosphatase 72 42 - 121 unit/L LAB CHEMISTRY METHOD 07/24/2024 12:19 PM [facility] Total Protein 6.7 6.0 - 8.0 g/dL LAB CHEMISTRY METHOD 07/24/2024 12:19 PM [facility] Albumin 3.6 3.2 - 5.0 g/dL LAB CHEMISTRY METHOD 07/24/2024 12:19 PM [facility] Total Bilirubin 0.3 0.0 - 1.4 mg/dL LAB CHEMISTRY METHOD 07/24/2024 12:19 PM [facility] Blood Venous blood specimen / Unknown Venipuncture / Unknown 07/24/2024 5:17 AM EST 07/24/2024 10:19 AM EST Mayo Donnelly MD LAB BLOOD ORDERABLES [facility] [address] [place] [address], documented in this encounter Visit Diagnoses Diagnosis Encounter for other general examination documented in this encounter Care Teams Beef Grinder Relationship Specialty Start Date End Date Andree Lindquist MD PCP - General Internal Medicine 03/19/22 documented as of this encounter
--- OUTSIDE RECORDS SUMMARY | 2024-08-15 12:08 | XMS_ITS | Clinical Summary ---
Author Organization [employer] Address [address] [place] [address] [address] [place] [address] Care Team Providers Care Power Line Installer And Repairer Name Role Phone Unavailable Primary Care Provider Unavailabl e Allergies Active Allergy Reactions Criticality Noted Date Comments Cefdinir Unknown 07/02/2022 Sulfa Antibiotics Unknown 07/02/2022 Trimethoprim Unknown 07/02/2022 Medications Umeclidinium Gates (INCRUSE ELLIPTA IN) Incruse Ellipta Ac tive ALBUTEROL IN Albuterol Active NITROFURANTOIN PO Nitrofurantoin Activ e PANTOPRAZOLE SODIUM PO Pantoprazole Sodium Active carbidopa-levo dopa (Sinemet) 25-100 MG tablet 1 tablet. Active fenofibrate (Tricor) 54 MG tablet 1 tablet in the morning. Active losartan (Cozaar) 25 MG tablet 1 tablet 2 times daily. Active metFORMIN XR (Glucophage-XR ) 750 MG 24 hr tablet 1 tablet in the morning. 0 Active glipiZIDE (Glucotrol) 5 MG tablet daily. Active ursodiol (Actigall) 250 MG tablet 600 mg 2 times daily. 0 Active atorvastatin (Lipitor) 40 MG tablet 1 tablet in the morning. Active glipiZIDE XL (Glucotrol XL) 2.5 MG 24 hr tablet Take 1 tablet by mouth in the morning. 2 Active metFORMIN (Glucophage) 500 MG tablet 3 times daily. 2 Active methenamine hippurate (Hiprex) 1 g tablet Take 1 g by mouth 2 times daily. 4 Active sertraline (Zoloft) 25 MG tablet Take 25 mg by mouth. 2 Active Myrbetriq 25 MG 24 hr tablet Take 25 mg by mouth in the morning. 3 Active LORazepam (Ativan) 0.25 mg split tablet TAKE 1 TABLET BY MOUTH TWICE DAILY NEEDED FOR ANXIETY 2 Active baclofen (Lioresal) 10 MG tablet Take 10 mg by mouth 2 times daily. 2 Active oxyCODONE (Roxicodone) 5 MG immediate release tablet Take 5 mg by mouth every 6 (six) hours if needed. 3 Active acetaminophen (Tylenol 8 Hour) 650 MG ER tablet Take 650 mg by mouth every 8 (eight) hours if needed for mild pain. Do not crush, chew, or split. Q6 prn Active Active Problems Problem Noted Date Diagnosed Date Bladder cancer 08/17/2023 Deep vein thrombosis (DVT) 08/03/2023 Arthritis 08/03/2023 Moderate aortic stenosis 08/03/2023 Biliary cirrhosis 07/02/2022 Hyperlipidemia 07/02/2022 Osteopenia 07/02/2022 Diastolic heart failure 07/02/2022 Low back pain 07/02/2022 DM w/o complication type II 07/02/2022 Mild nonproliferative diabet ic retinopathy of both eyes without macular edema associated with type 2 diabetes mellitus 07/02/2022 Cough variant asthma 07/02/2022 Centrilobular emphysema 10/28/2018 Parkinson disease 10/16/2015 Overview (08/26/2023): Melchionna Melchionna Diabetes mellitus type 2 with neurological manif estations 11/28/2012 Overview (08/26/2023): PMH of carpal tunnel PMH of carpal tunnel 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 Encounters Date Type Department Care Team Description 07/07/2024 9:00 AM EST Office Visit [facility] [address] [place] [address] Kiet Leonard Jr., DMD 06/30/2024 9:50 AM EST Office Visit [facility] [address] [place] [address] Kiet Leonard Jr., DMD 06/21/2024 3:00 PM EST Office Visit [facility] [address] [place] [address] Landon Trammell DDS Encounter for dental examination (Primary Dx) from Last 3 Months Family History Medical History Relation Name Comments Macular degeneration Father Relation Name Status Comments Father Social History Tobacco Use Types Packs/Day Years Used Date Smoking Tobacco: Former Cigarettes 1996 Tobacco Cessation:Counseling Given: Not Answered Comments Unknown Sex and Gender Information Value Date Recorded Sex Assigned at Female 08/04/2022 8:44 AM EST Legal Sex Female 5:35 PM EDT Gender Identity Female 08/04/2022 8:44 AM EST Sexual Orientation Straight 08/04/2022 8: 44 AM EST Last Filed Vital Signs Vital Sign Reading Time Taken Comments Blood Pressure 136/84 08/17/2022 12:10 PM EST Pulse - - Temperature 36.2 ??C (97.1 ??F) 08/17/2022 12:[address] Respiratory Rate - - Oxygen Saturation - - Inhaled Oxygen Concentration - - Weight - - Height - - Body Mass Index - - Plan of Treatment Upcoming Encounters Date Type Department Care Team (Late st Contact Info) Description 08/23/2024 11:00 AM EST Office Visit [facility] D[facility] [address] [place] [address] Diane Burns Health Maintenance Due Date Last Done Comments Depression Screening 1945 Diabetes: Hemoglobin A1C 1945 Lipid Panel 1945 SDOH Screening 1947 Diabetes: Foot Exam 10/19/1957 Alcohol/Substance Use Screening 1959 Hepatitis C Screening 10/19/1965 Diabetes: Urine Protein Screening 10/19/1966 Hepatitis A Vaccines (1 of 2 - Risk 2-dose series) 10/19/1966 Hepatitis B Vaccines (1 of 3 - Risk 3-dose series) 2007 Zoster Vaccines (2 of 3) 08/14/2011 06/19/2011 DTaP/Tdap/Td Vaccines (2 - Td or Tdap) 03/16/2022 03/16/2012, 08/06/2006, 08/06/2006 RSV Patients and Patients Aged 60 years or older (1 - 1-dose 75+ series) 10/19/2022 COVID-19 Vaccine (4 - season) 2024 05/28/2021, 09/26/2020, 09/05/2020 Influenza Vaccine (#1) 2024 , 06/08/2022, 04/29/2020, Additional history exists Dental Prophylaxis 07/01/2024 12/30/2023, 1 08/31/2022, 01/23/2022, Additional history exists Eye Exam 08/26/2024 08/26/2023, 08/12, 08/26/2023, Additional history exists Tobacco Screening 08/26/2024 08/26/2023 Dental Oral Exam 12/21/2024 06/21/2024, , 01/23/2022, Additional history exists Dental X-Ray: Bitewings 06/22/2025 06/21/20 24, 06/30/2023, 04/23/2021, Additional history exists Dental X-Ray: Full Mouth 06/22/2027 024, 06/30/2023, 12/14/2007 Pneumococcal Vaccine: 50+ Years Completed 08/05/2016, 12/31/2014, 03/27/2009 Colorectal Cancer Screening Discontinued FIT DNA/Cologuard Discontinued 10/06/2021 CT Colonography Discontinued Colonoscopy Discontinued FIT Discontinued FOBT Discontinued HIB Vaccines Aged Out No longer eligi ble based on patient's age to complete this topic HPV Vaccines Aged Out No longer eligi ble based on patient's age to complete this topic IPV Vaccines Aged Out No longer eligi ble based on patient's age to complete this topic Meningococcal Vaccine Aged Out No sw[place] eligible based on patient's age to complete this topic RSV under 20 months Aged Out No longe r eligible based on patient's age to complete this topic Rotavirus Vaccines Aged Out No longer eligible based on patient's age to complete this topic Sigmoidoscopy Discontinued Procedures Procedure Name Priority Date/Time Associated Diagnosis Comments NO CHARGE EXAM AND CONSULTATION Routine 07/07/2024 9:00 AM EST ADJUNCTIVE GENERAL SERVICES - PROFESSIONAL VISITS - CASE PRESENTATION, SUBSEQUENT TO DETAILED AND EXTENSIVE TREATMENT PLANNING Routine 06/30/2024 9:50 AM EST 28 EXTRACTION, ERUPTED TOOTH OR EXPOSED ROOT (ELEVATION AND/OR FORCEPS REMOVAL) Routine 06/30/2024 9:50 AM EST ADJUNCTIVE GENERAL SERVICES - PROFESSIONAL VISITS - CASE PRESENTATION, SUBSEQUENT TO DETAILED AND EXTENSIVE TREATMENT PLANNING Routine 06/21/2024 3:00 PM EST PERIODIC ORAL EVALUATION - ESTABLISHED PATIENT Routine 06/21/2024 3:00 PM EST DIAGNOSTIC - DIAGNOSTIC IMAGING - INTRAORAL - COMPREHENSIVE SERIES OF RADIOGRAPHIC IMAGES Routine 06/21/2024 3:00 PM EST 31 EXTRACTION Routine 06/21/2024 12:00 AM EST 17 EXTRACTION Routine 06/21/2024 12:00 AM EST 18 EXTRACTION Routine 06/21/2024 12:00 AM EST Full PROPHYLAXIS - ADULT Routine 024 3:00 PM EDT from Last 3 Months or Most Recently Relevant to Health Maintenance Insurance # [address] [place] [address] [place] [id number] [facility] MEDEX CARE DENTAL - HSN FULL (MEDICAID) Care Teams Power Line Installer And Repairer Relationship Specialty Start Date End Date Dr. Andree Lindquist [facility], [place] Primary Care Provider 08/17/22
--- OUTSIDE RECORDS SUMMARY | 2024-08-15 12:08 | XMS_ITS | Encounter Summary ---
Author Organization [employer] Address [address] [place] [address] Care Team Providers Care Pole Frame Construction Worker Name Role Phone Unavailable Primary Care Provider Unavailabl e Encounter Details Date Type Department Care Team (Latest Contact Info) Description 04/15/2020 Abstract [facility] CONVERSIONS Dental, Provider, DDS Social History Tobacco Use Types Packs/Day Years Used Date Smoking Tobacco: Never Assessed Comments Unknown Sex and Gender Information Value Date Recorded Sex Assigned at Female 08/04/2022 8:44 AM EST Legal Sex Female 5:35 PM EDT Gender Identity Female 08/04/2022 8:44 AM EST Sexual Orientation Straight 08/04/2022 8: 44 AM EST documented as of this encounter Plan of Treatment Upcoming Encounters Date Type Department Care Team (Late st Contact Info) Description 08/23/2024 11:00 AM EST Office Visit [facility] D[facility] [address] [place] [address] Dinae Burns documented as of this encounter Visit Diagnoses Not on filedocumented in this encounter Care Teams Pole Frame Construction Worker Relationship Specialty Start Date End Date Dr. Meghan Hicks Primary Care Provider 08/17/[address] Andree Lindquist [facility] [place], [place] Primary Care Provider 08/17/22 documented as of this encounter
--- OUTSIDE RECORDS SUMMARY | 2024-08-15 12:08 | XMS_ITS | Encounter Summary ---
Author Organization [facility] Address [address] [place] [address] Care Team Providers Care Multimedia Designer Name Role Phone Andree Lindquist Primary Care Provider [phone] Encounter Details Date Type Department Care Team (Late Contact Info) Description 07/24/2024 Orders Only [facility] [address] [place] [address] Instructor Bridge: Christen Dempsey MD [address] [place] [phone] Acute cystitis with hematuria (Primary Dx) Social History Tobacco Use Types Packs/Day Years Used Date Smoking Tobacco: Former Cigarettes Q uit: 1998 Smokeless Tobacco: Never Alcohol Use Standard Drinks/Week Comments Not Currently 0 (1 standard drink = 0.6 oz pur e alcohol) Comments No Sex and Gender Information Value Date Recorded Sex Assigned at Female 07/21/2023 1:37 PM EST Legal Sex Female 4:19 AM EDT Gender Identity Female 07/21/2023 1:37 PM EST Sexual Orientation Choose not to disclose 2023 1:37 PM EST documented as of this encounter Plan of Treatment Upcoming Encounters Date Type Department Care Team (Late st Contact Info) Description 06/20/2025 10:45 AM EST Follow-Up [facility] [address] [place] [address] Instructor Bridge: Christen Dempsey MD [address] [place] [address] Scheduled Orders Name Type Priority Associated Diagnoses Orde r Schedule Urine Culture, Routine Microbiology Routine Acute cystitis with hematuria Every 2 Weeks for 24 Occurrences starting 07/24/2024 until 01/20/2025 documented as of this encounter Visit Diagnoses Diagnosis Acute cystitis with hematuria- Primary documented in this encounter Care Teams Multimedia Designer Relationship Specialty Start Date End Date Andree Lindquist PCP - General Family Medicine 03/26/23 documented as of this encounter
--- OUTSIDE RECORDS SUMMARY | 2024-08-15 12:08 | XMS_ITS | Encounter Summary ---
Author Organization [facility] Address [address] [place] [address] Care Team Providers Care Pulmonologist/Intensivist Name Role Phone Andree Lindquist MD Primary Care Provider [phone] Encounter Details Date Type Department Care Team (Late st Contact Info) Description 07/27/2024 Lab Requisition [facility] - Main Lab [address] [place] [phone] Mayo Donnelly MD [address] [place] [phone] Encounter for other general examination Social History [...] Associated Diagnosis Comments COMPLETE BLOOD COUNT Routine 07/27/2024 6:45 AM EST Encounter for other general examination COMPREHENSIVE METABOLIC PANEL Routine 07/27/2024 6:45 AM EST Encounter for other general examination documented in this encounter Results * (ABNORMAL) Complete blood count (07/27/2024 6:45 AM EST) WBC 6.5 4.8 - 10.8 /[facility] LAB HEMETOLOGY METHOD 07/27/2024 11:45 AM EST [facility] RBC 3.80 3.80 - 4.80 M/mcL LAB HEMETOLOGY METHOD 07/27/2024 11:45 AM [facility] Hemoglobin 9.2(L) 11.5 - 16.0 g/dL LAB HEMETOLOGY METHOD 07/27/2024 11:45 AM [facility] Hematocrit 30.8(L) 35.0 - 47.0 % LAB HEMETOLOGY METHOD 07/27/2024 11:45 AM [facility] MCV 81.7 79.0 - 98.0 FL LAB HEMETOLOGY METHOD 07/27/2024 11:45 AM [facility] MCH 24.4(L) 27.0 - 32.0 pcg LAB HEMETOLOGY METHOD 07/27/2024 11:45 AM [facility] MCHC 29.9(L) 32.0 - 37.0 g/dL LAB HEMETOLOGY METHOD 07/27/2024 11:45 AM [facility] RDW 15.8(H) 11.0 - 15.0 % LAB HEMETOLOGY METHOD 07/27/2024 11:45 AM [facility] Platelets 318 130 - 400 K/mcL LAB HEMETOLOGY METHOD 07/27/2024 11:45 AM [facility] MPV 10.3 7.0 - 11.0 FL LAB HEMETOLOGY METHOD 07/27/2024 11:45 AM [facility] NRBC 0.0 <1.0 % LAB HEMETOLOGY METHOD 07/27/2024 11:45 AM [facility] NRBC Absolute 0.00 <0.10 K/mcL LAB HEMETOLOGY METHOD 07/27/2024 11:45 AM [facility] Blood Venous blood specimen / Unknown Venipuncture / Unknown 07/27/2024 6:45 AM EST 07/27/2024 10:56 AM EST Mayo Donnelly MD LAB BLOOD ORDERABLES [facility] [address] [place] [address], * (ABNORMAL) Comprehensive metabolic panel (07/27/2024 6:45 AM EST) Sodium 134 133 - 145 mmol/L LAB CHEMISTRY METHOD 07/27/2024 2:10 PM EST [facility] Potassium 5.2 3.5 - 5.5 mmol/L LAB CHEMISTRY METHOD 07/27/2024 2:10 PM [facility] Chloride 107 96 - 110 mmol/L LAB CHEMISTRY METHOD 07/27/2024 2:10 PM [facility] CO2 20(L) 21 - 32 mmol/L LAB CHEMISTRY METHOD 07/27/2024 2:10 PM [facility] Anion Gap 7 3 - 11 LAB CHEMISTRY METHOD 07/27/2024 2:10 PM [facility] Glucose 101(H) 70 - 100 mg/dL LAB CHEMISTRY METHOD 07/27/2024 2:10 PM [facility] BUN 43(H) 5 - 25 mg/dL LAB CHEMISTRY METHOD 07/27/2024 2:10 PM [facility] Creatinine 0.99 0.50 - 1.10 mg/dL LAB CHEMISTRY METHOD 07/27/2024 2:10 PM [facility] eGFR 59(L) >=60 mL/min/1. 73m2 LAB CHEMISTRY METHOD 07/27/2024 2:10 PM [facility] Comment:Calculation based on the??Chronic Kidney Disease Epidemiology Collaboration (CKD-EPI) equation refit??without adjustment for race. BUN/Creatinine Ratio 43.4 LAB CHEMISTRY METHOD 07/27/2024 2:10 PM [facility] Calcium 9.4 8.5 - 10.5 mg/dL LAB CHEMISTRY METHOD 07/27/2024 2:10 PM [facility] AST (SGOT) 23 10 - 42 unit/L LAB CHEMISTRY METHOD 07/27/2024 2:10 PM [facility] ALT (SGPT) 16 10 - 60 unit/L LAB CHEMISTRY METHOD 07/27/2024 2:10 PM [facility] Alkaline Phosphatase 65 42 - 121 unit/L LAB CHEMISTRY METHOD 07/27/2024 2:10 PM EST [facility] Total Protein 6.4 6.0 - 8.0 g/dL LAB CHEMISTRY METHOD 07/27/2024 2:10 PM [facility] Albumin 3.5 3.2 - 5.0 g/dL LAB CHEMISTRY METHOD 07/27/2024 2:10 PM [facility] Total Bilirubin 0.2 0.0 - 1.4 mg/dL LAB CHEMISTRY METHOD 07/27/2024 2:10 PM EST [facility] Blood Venous blood specimen / Unknown Venipuncture / Unknown 07/27/2024 6:45 AM EST 07/27/2024 10:56 AM EST Mayo Donnelly MD LAB BLOOD ORDERABLES Performing Organization Address City/State/[facility] Co de Phone Number [facility] [address] [phone] documented in this encounter Visit Diagnoses Diagnosis Encounter for other general examination documented in this encounter Care Teams Pulmonologist/Intensivist Relationship Specialty Start Date End Date Andree Lindquist MD PCP - General Internal Medicine 03/19/22 documented as of this encounter
--- OUTSIDE RECORDS SUMMARY | 2024-08-15 12:08 | XMS_ITS | Encounter Summary ---
Author Organization [facility] Address [address] [place] [address] Care Team Providers Care Receivable Clerk Name Role Phone Andree Lindquist MD Primary Care Provider [phone] Encounter Details Date Type Department Care Team (Late st Contact Info) Description 07/16/2024 Lab Requisition [facility] - Main Lab [address] [facility] [address] [place] [address] Mayo Donnelly MD [address] [place] [address] Encounter for other general examination Social History [...] Procedure Name Priority Date/Time Associated Diagnosis Comments CBC WITH AUTO DIFFERENTIAL Routine 07/16/2024 5:30 AM EST Encounter for other general examination CBC AND DIFFERENTIAL Routine 07/16/2024 5:30 AM EST Encounter for other general examination MAGNESIUM Routine 07/16/2024 5:30 AM EST Encounter for other general examination COMPREHENSIVE METABOLIC PANEL Routine 07/16/2024 5:30 AM EST Encounter for other general examination documented in this encounter Results * (ABNORMAL) Magnesium (07/16/2024 5:30 AM EST) Pathologist [facility] Magnesium 1.6(L) 1.9 - 2.6 mg/dL LAB CHEMISTRY METHOD 07/16/2024 10:49 AM [facility] Blood Venous blood specimen / Unknown Venipuncture / Unknown 07/16/2024 5:30 AM EST 07/16/2024 9:10 AM EST Mayo Donnelly MD LAB BLOOD ORDERABLES [facility] [address] [place] [address], * (ABNORMAL) CBC auto differential (07/16/2024 5:30 AM EST) [facility] WBC 5.8 4.8 - 10.8 K/mcL LAB HEMETOLOGY METHOD 07/16/2024 10:35 AM [facility] RBC 3.80 3.80 - 4.80 M/[facility] LAB HEMETOLOGY METHOD 07/16/2024 10:35 AM [facility] Hemoglobin 9.2(L) 11.5 - 16.0 g/dL LAB HEMETOLOGY METHOD 07/16/2024 10:35 AM [facility] Hematocrit 30.8(L) 35.0 - 47.0 % LAB HEMETOLOGY METHOD 07/16/2024 10:35 AM [facility] MCV 80.8 79.0 - 98.0 FL LAB HEMETOLOGY METHOD 07/16/2024 10:35 AM [facility] MCH 24.1(L) 27.0 - 32.0 pcg LAB HEMETOLOGY METHOD 07/16/2024 10:35 AM [facility] MCHC 29.9(L) 32.0 - 37.0 g/dL LAB HEMETOLOGY METHOD 07/16/2024 10:35 AM [facility] RDW 14.9 11.0 - 15.0 % LAB HEMETOLOGY METHOD 07/16/2024 10:35 AM [facility] Platelets 247 130 - 400 K/mcL LAB HEMETOLOGY METHOD 07/16/2024 10:35 AM [facility] MPV 10.8 7.0 - 11.0 FL LAB HEMETOLOGY METHOD 07/16/2024 10:35 AM [facility] NRBC 0.0 <1.0 % LAB HEMETOLOGY METHOD 07/16/2024 10:35 AM [facility] NRBC Absolute 0.00 <0.10 K/mcL LAB HEMETOLOGY METHOD 07/16/2024 10:35 AM [facility] Neutrophils Relative 69.6 % LAB HEMETOLOGY METHOD 07/16/2024 10:35 AM [facility] Lymphocytes Relative 16.7 % LAB HEMETOLOGY METHOD 07/16/2024 10:35 AM [facility] Monocytes Relative 10.1 % LAB HEMETOLOGY METHOD 07/16/2024 10:35 AM [facility] Eosinophils Relative 3.1 % LAB HEMETOLOGY METHOD 07/16/2024 10:35 AM [facility] Basophils Relative 0.2 % LAB HEMETOLOGY METHOD 07/16/2024 10:35 AM [facility] Immature Granulocytes Relative 0.3 % LAB HEMETOLOGY METHOD 07/16/2024 10:35 AM [facility] Neutrophils Absolute 4.01 1.50 - 7.00 K/mcL LAB HEMETOLOGY METHOD 07/16/2024 10:35 AM [facility] Lymphocytes Absolute 0.96(L) 1.00 - 5.00 K/mcL LAB HEMETOLOGY METHOD 07/16/2024 10:35 AM [facility] Monocytes Absolute 0.58 0.20 - 1.00 K/[facility] LAB HEMETOLOGY METHOD 07/16/2024 10:[address] [facility] Eosinophils Absolute 0.18 0.00 - 0.50 K/[facility] LAB HEMETOLOGY METHOD 07/16/2024 10:[address] [facility] Basophils Absolute 0.01 0.00 - 0.20 K/[facility] LAB HEMETOLOGY METHOD 07/16/2024 10:35 AM [facility] Immature Granulocytes Absolute 0.02 0.00 - 0.03 K/[facility] LAB HEMETOLOGY METHOD 07/16/2024 10:35 AM [facility] Blood Venous blood specimen / Unknown Venipuncture / Unknown 07/16/2024 5:30 AM EST 07/16/2024 9:10 AM EST Mayo Donnelly MD LAB BLOOD ORDERABLES [facility] [address] [place] [address], * (ABNORMAL) Comprehensive metabolic panel (07/16/2024 5:30 AM EST) Sodium 133 133 - 145 mmol/L LAB CHEMISTRY METHOD 07/16/2024 10:49 AM [facility] Potassium 4.6 3.5 - 5.5 mmol/L LAB CHEMISTRY METHOD 07/16/2024 10:49 AM [facility] Chloride 103 96 - 110 mmol/L LAB CHEMISTRY METHOD 07/16/2024 10:49 AM [facility] CO2 24 21 - 32 mmol/L LAB CHEMISTRY METHOD 07/16/2024 10:49 AM [facility] Anion Gap 6 3 - 11 LAB CHEMISTRY METHOD 07/16/2024 10:49 AM [facility] Glucose 125(H) 70 - 100 mg/dL LAB CHEMISTRY METHOD 07/16/2024 10:49 AM [facility] BUN 33(H) 5 - 25 mg/dL LAB CHEMISTRY METHOD 07/16/2024 10:49 AM [facility] Creatinine 1.13(H) 0.50 - 1.10 mg/dL LAB CHEMISTRY METHOD 07/16/2024 10:49 AM [facility] eGFR 51(L) >=60 mL/min/1. 73m2 LAB CHEMISTRY METHOD 07/16/2024 10:49 AM [facility] Comment:Calculation based on the??Chronic Kidney Disease Epidemiology Collaboration (CKD-EPI) equation refit??without adjustment for race. BUN/Creatinine Ratio 29.2 LAB CHEMISTRY METHOD 07/16/2024 10:49 AM [facility] Calcium 9.0 8.5 - 10.5 mg/dL LAB CHEMISTRY METHOD 07/16/2024 10:49 AM [facility] AST (SGOT) 18 10 - 42 unit/L LAB CHEMISTRY METHOD 07/16/2024 10:49 AM [facility] ALT (SGPT) 8(L) 10 - 60 unit/L LAB CHEMISTRY METHOD 07/16/2024 10:49 AM [facility] Alkaline Phosphatase 61 42 - 121 unit/L LAB CHEMISTRY METHOD 07/16/2024 10:49 AM [facility] Total Protein 6.3 6.0 - 8.0 g/dL LAB CHEMISTRY METHOD 07/16/2024 10:49 AM [facility] Albumin 3.4 3.2 - 5.0 g/dL LAB CHEMISTRY METHOD 07/16/2024 10:49 AM [facility] Total Bilirubin 0.5 0.0 - 1.4 mg/dL LAB CHEMISTRY METHOD 07/16/2024 10:49 AM [facility] Blood Venous blood specimen / Unknown Venipuncture / Unknown 07/16/2024 5:30 AM EST 07/16/2024 9:10 AM EST Mayo Donnelly MD LAB BLOOD ORDERABLES Performing Organization Address City/State/[facility] Co de Phone Number [facility] [address] [place] [address], documented in this encounter Visit Diagnoses Diagnosis Encounter for other general examination documented in this encounter Care Teams Receivable Clerk Relationship Specialty Start Date End Date Andree Lindquist MD PCP - General Internal Medicine 03/19/22 documented as of this encounter
--- OUTSIDE RECORDS SUMMARY | 2024-08-15 12:08 | XMS_ITS | Encounter Summary ---
Author Organization [facility] Address [address] [place] [address] Care Team Providers Care Boom Tender Name Role Phone Andree Lindquist MD Primary Care Provider [phone] Encounter Details Date Type Department Care Team (Late st Contact Info) Description 07/25/2024 Lab Requisition [facility] [place] [facility] - Main Lab [address] [facility] [address] [place] [address] Mayo Donnelly MD [address] [place] [address] Encounter for other general examination Social History [...] Procedure Name Priority Date/Time Associated Diagnosis Comments URINALYSIS WITH REFLEX MICROSCOPIC Routine 07/24/2024 6:55 PM EST Encounter for other general examination CERON URINE CULTURE TUBE Routine 07/24/2024 6:55 PM EST Encounter for other general examination URINALYSIS WITH REFLEX MICROSCOPIC Routine 07/24/2024 6:55 PM EST Encounter for other general examination documented in this encounter Results * (ABNORMAL) Urinalysis with reflex microscopic (07/24/2024 6:55 PM EST) Specific [place] Urine 1.025 1.003 - 1.030 LAB URINALYSIS - AUTOMATED METHOD 07/25/2024 1:24 PM [facility] pH, Urine 5.5 5.0 - 8.0 pH LAB URINALYSIS - AUTOMATED METHOD 07/25/2024 1:24 PM [facility] Leukocytes, Urine Moderate(A) Negative LAB URINALYSIS - AUTOMATED METHOD 07/25/2024 1:24 PM [facility] Nitrite, Urine Positive(A) Negative LAB URINALYSIS - AUTOMATED METHOD 07/25/2024 1:24 PM [facility] Protein, Urine >=300(A) <=Trace mg/dL LAB URINALYSIS - AUTOMATED METHOD 07/25/2024 1:24 PM [facility] Glucose, Urine Negative Negative mg/dL LAB URINALYSIS - AUTOMATED METHOD 07/25/2024 1:24 PM [facility] Ketones, Urine Trace(A) Negative mg/dL LAB URINALYSIS - AUTOMATED METHOD 07/25/2024 1:24 PM [facility] Urobilinogen , Urine 1.0 0.2 - 1.0 mg/dL LAB URINALYSIS - AUTOMATED METHOD 07/25/2024 1:24 PM [facility] Bilirubin, Urine Negative Negative LAB URINALYSIS - AUTOMATED METHOD 07/25/2024 1:24 PM [facility] Blood, Urine Large(A) Negative LAB URINALYSIS - AUTOMATED METHOD 07/25/2024 1:24 PM [facility] RBC, Urine >4,000(H) 0 - 4 /HPF LAB URINALYSIS - AUTOMATED METHOD 07/25/2024 1:24 PM [facility] WBC, Urine 1,000.0(H) 0 - 4 /HPF LAB URINALYSIS - AUTOMATED METHOD 07/25/2024 1:24 PM [facility] Squamous Epithelial, Urine >100(H) 0 - 60 /LPF LAB URINALYSIS - AUTOMATED METHOD 07/25/2024 1:24 PM [facility] Bacteria, Urine Many(A) Negative /HPF LAB URINALYSIS - AUTOMATED METHOD 07/25/2024 1:24 PM [facility] Hyaline Casts, Urine 0.00 0 - 3 /LPF LAB URINALYSIS - AUTOMATED METHOD 07/25/2024 1:24 PM [facility] Urine Urine specimen obtained by clean catch procedure / Unknown Non-blood Collection / Unknown 07/24/2024 6:55 PM EST 07/25/2024 10:05 AM EST Mayo Donnelly MD LAB URINE ORDERABLES Performing Organization Address [facility]/ZIP Co de Phone Number [facility] [address] [place] [address], * Ceron urine culture tube (07/24/2024 6:55 PM EST) Extra Tube Hold for add-ons. 07/25/2024 12:01 PM [facility] Comment:Auto resulted. Urine Urine specimen obtained by clean catch procedure / Unknown Non-blood Collection / Unknown 07/24/2024 6:55 PM EST 07/25/2024 10:05 AM EST Mayo Donnelly MD LAB URINE ORDERABLES Performing Organization Address City/[facility]/ZIP Co de Phone Number [facility] [address] [place] [address], [place] [phone] documented in this encounter Visit Diagnoses Diagnosis Encounter for other general examination documented in this encounter Care Teams Boom Tender Relationship Specialty Start Date End Date Andree Lindquist MD PCP - General Internal Medicine 03/19/22 documented as of this encounter
--- OUTSIDE RECORDS SUMMARY | 2024-08-15 12:08 | XMS_ITS | Encounter Summary ---
Author Organization [facility] Address [address] [place] [address] Care Team Providers Care Deck Scaler Name Role Phone Andree Lindquist Primary Care Provider [phone] Encounter Details Date Type Department Care Team (Late st Contact Info) Description 07/22/[address] [facility] Interventional Radiology [address] [place], [place] [phone] Guerline Vaughn MD [address] [place] [address] Social History Tobacco Use Types Packs/Day Years Used Date Smoking Tobacco: Former Cigarettes Q uit: 1999 Smokeless Tobacco: Never Alcohol Use Standard Drinks/Week Comments Not Currently 0 (1 standard drink = 0.6 oz pur e alcohol) Comments Unknown Sex and Gender Information Value [...] Info) Description 06/20/2025 10:45 AM EST Follow-Up [facility] [address] [place] [address] Information And Data Architect Analyst: Christen Dempsey MD [address] [place] [address] [phone] documented as of this encounter Visit Diagnoses Not on filedocumented in this encounter Care Teams Deck Scaler Relationship Specialty Start Date End Date Andree Lindquist PCP - General Family Medicine 03/26/23 documented as of this encounter
--- OUTSIDE RECORDS SUMMARY | 2024-08-15 12:08 | XMS_ITS | Encounter Summary ---
Author Organization [facility] Address [address] [place] [address] Care Team Providers Care Blocker Heated Metal Forms Name Role Phone Andree Lindquist MD Primary Care Provider [phone] Encounter Details Date Type Department Care Team (Late st Contact Info) Description 07/25/2024 Lab Requisition [facility] - Main Lab [address] [place] [phone] Mayo Donnelly MD [address] [place] [address] Encounter for other general examination Social History [...] Procedure Name Priority Date/Time Associated Diagnosis Comments BASIC METABOLIC PANEL Routine 07/25/2024 4:31 AM EST Encounter for other general examination documented in this encounter Results * (ABNORMAL) Basic metabolic panel (07/25/2024 4:31 AM EST) Sodium 135 133 - 145 mmol/L LAB CHEMISTRY METHOD 07/25/2024 11:01 AM EST [facility] Potassium 5.5 3.5 - 5.5 mmol/L LAB CHEMISTRY METHOD 07/25/2024 11:01 AM EST [facility] Comment:Hemolysis present Chloride 111(H) 96 - 110 mmol/L LAB CHEMISTRY METHOD 07/25/2024 11:01 AM [facility] CO2 16(L) 21 - 32 mmol/L LAB CHEMISTRY METHOD 07/25/2024 11:01 AM [facility] Anion Gap 8 3 - 11 LAB CHEMISTRY METHOD 07/25/2024 11:01 AM [facility] Glucose 85 70 - 100 mg/dL LAB CHEMISTRY METHOD 07/25/2024 11:01 AM [facility] BUN 66(H) 5 - 25 mg/dL LAB CHEMISTRY METHOD 07/25/2024 11:01 AM [facility] Creatinine 1.20(H) 0.50 - 1.10 mg/dL LAB CHEMISTRY METHOD 07/25/2024 11:01 AM [facility] eGFR 47(L) >=60 mL/min/1. 73m2 LAB CHEMISTRY METHOD 07/25/2024 11:01 AM [facility] Comment:Calculation based on the??Chronic Kidney Disease Epidemiology Collaboration (CKD-EPI) equation refit??without adjustment for race. BUN/Creatinine Ratio 55.0 LAB CHEMISTRY METHOD 07/25/2024 11:01 AM [facility] Calcium 9.2 8.5 - 10.5 mg/dL LAB CHEMISTRY METHOD 07/25/2024 11:01 AM [facility] Blood Venous blood specimen / Unknown Venipuncture / Unknown 07/25/2024 4:31 AM EST 07/25/2024 9:59 AM EST Mayo Donnelly MD LAB BLOOD ORDERABLES [facility] [address] [place] [address], documented in this encounter Visit Diagnoses Diagnosis Encounter for other general examination documented in this encounter Care Teams Blocker Heated Metal Forms Relationship Specialty Start Date End Date Andree Lindquist MD PCP - General Internal Medicine 03/19/22 documented as of this encounter
--- OUTSIDE RECORDS SUMMARY | 2024-08-15 12:08 | XMS_ITS | Encounter Summary ---
Author Organization [facility] Address [address] [place] [address] Care Team Providers Care Sales Support Associate Name Role Phone Andree Lindquist MD Primary Care Provider [phone] Encounter Details Date Type Department Care Team (Late st Contact Info) Description 07/26/2024 Lab Requisition [facility] - Main Lab [address] [facility] [place] [address] Mayo Donnelly MD [address] [place] [id number] Encounter for other general examination Social History [...] Associated Diagnosis Comments URINALYSIS WITH REFLEX MICROSCOPIC AND CULTURE Routine 07/25/2024 6:02 PM EST Encounter for other general examination CERON URINE CULTURE TUBE Routine 07/25/2024 6:02 PM EST Encounter for other general examination URINALYSIS WITH REFLEX MICROSCOPIC AND CULTURE Routine 07/25/2024 6:02 PM EST Encounter for other general examination CULTURE URINE Routine 07/25/2024 6:02 PM EST Encounter for other general examination documented in this encounter Results * (ABNORMAL) Culture urine (07/25/2024 6:02 PM EST) Culture, Urine >100,000 CFU/mL Escherichia coli(A) YARED 07/29/2024 8:22 AM EST [facility] Culture, Urine 10,000-49,000 CFU/mL Enterococcus faecalis(A) YARED 07/29/2024 8:22 AM EST [facility] Comment: The organism value for this result has been updated. These results have been appended to the previously preliminary verified report. Edited result: Previously reported as Gram Positive Cocci on 07/28/2024 at 1053 EST. Urine Urine specimen obtained by clean catch procedure / Unknown 07/25/2024 6:02 PM EST 07/26/2024 12:32 PM EST [facility] - 07/29/2024 8:22 AM EST Additional colony types present in insignificant amounts. Organism Antibiotic Method Susceptibility Escherichia coli Amoxicillin/Clavulanate YARED <=2 ug/ml: Susceptible Escherichia coli Ampicillin/Sulbactam YARED <=2 ug/ml: Susceptible Escherichia coli Piperacillin/Tazobactam YARED <=4 ug/ml: Susceptible Escherichia coli Cefazolin (Urine) YARED <=1 ug/ml: Susceptible Escherichia coli Cefoxitin YARED <=4 ug/ml: Susceptible Escherichia coli Ceftazidime YARED <=0.5 ug/ml: Susceptible Escherichia coli Ceftriaxone YARED <=0.25 ug/ml: Susceptible Escherichia coli Cefepime YARED <=0.12 ug/ml: Susceptible Escherichia coli Meropenem YARED <=0.25 ug/ml: Susceptible Escherichia coli Amikacin YARED 2 ug/ml: Susceptible Escherichia coli Gentamicin YARED <=1 ug/ml: Susceptible Escherichia coli Ciprofloxacin YARED <=0.06 ug/ml: Susceptible Escherichia coli Levofloxacin YARED <=0.12 ug/ml: Susceptible Escherichia coli Nitrofurantoin YARED <=16 ug/ml: Susceptible Escherichia coli Trimethoprim/Sulfamethoxazole YARED <=20 ug/ml: Susceptible Enterococcus faecalis Benzylpenicillin YARED 4 ug/ml: Susceptible Enterococcus faecalis Ampicillin YARED <=2 ug/ml: Susceptible Enterococcus faecalis Ciprofloxacin YARED <=0.5 ug/ml: Susceptible Enterococcus faecalis Levofloxacin YARED 1 ug/ml: Susceptible Enterococcus faecalis Linezolid YARED 2 ug/ml: Susceptible Enterococcus faecalis Vancomycin YARED 2 ug/ml: Susceptible Enterococcus faecalis Tetracycline YARED <=1 ug/ml: Susceptible Enterococcus faecalis Nitrofurantoin YARED <=16 ug/ml: Susceptible Mayo Donnelly MD LAB MICROBIOLOGY - G ENERAL ORDERABLES [facility] [address] [place] [address], [place] [phone] * (ABNORMAL) Urinalysis with reflex microscopic and culture (07/25/2024 6:02 PM EST) Specific Loyal Urine 1.025 1.003 - 1.030 LAB URINALYSIS - AUTOMATED METHOD 07/26/2024 12:32 PM [facility] pH, Urine 6.5 5.0 - 8.0 pH LAB URINALYSIS - AUTOMATED METHOD 07/26/2024 12:32 PM [facility] Leukocytes, Urine Small(A) Negative LAB URINALYSIS - AUTOMATED METHOD 07/26/2024 12:32 PM [facility] Nitrite, Urine Positive(A) Negative LAB URINALYSIS - AUTOMATED METHOD 07/26/2024 12:32 PM [facility] Protein, Urine >=300(A) <=Trace mg/dL LAB URINALYSIS - AUTOMATED METHOD 07/26/2024 12:32 PM [facility] Glucose, Urine Negative Negative mg/dL LAB URINALYSIS - AUTOMATED METHOD 07/26/2024 12:32 PM [facility] Ketones, Urine Negative Negative mg/dL LAB URINALYSIS - AUTOMATED METHOD 07/26/2024 12:32 PM [facility] Urobilinogen , Urine 0.2 0.2 - 1.0 mg/dL LAB URINALYSIS - AUTOMATED METHOD 07/26/2024 12:32 PM [facility] Bilirubin, Urine Negative Negative LAB URINALYSIS - AUTOMATED METHOD 07/26/2024 12:32 PM [facility] Blood, Urine Large(A) Negative LAB URINALYSIS - AUTOMATED METHOD 07/26/2024 12:32 PM [facility] RBC, Urine >200 /HPF 07/26/2024 12:32 PM [facility] WBC, Urine 15 /HPF 07/26/2024 12:32 PM [facility] Bacteria, Urine 2+(A) (none) /HPF 07/26/2024 12:32 PM [facility] Urine Urine specimen obtained by clean catch procedure / Unknown 07/25/2024 6:02 PM EST 07/26/2024 11:14 AM EST Mayo Donnelly MD LAB URINE ORDERABLES [facility] [address] [place] [address], [place] [phone] * Ceron urine culture tube (07/25/2024 6:02 PM EST) Extra Tube Hold for add-ons. 07/26/2024 1:01 PM EST [facility] Comment:Auto resulted. Urine Urine specimen obtained by clean catch procedure / Unknown 07/25/2024 6:02 PM EST 07/26/2024 11:14 AM EST Mayo Donnelly MD LAB URINE ORDERABLES [facility] [address] [place] [address], [place] [phone] documented in this encounter Visit Diagnoses Diagnosis Encounter for other general examination documented in this encounter Care Teams Sales Support Associate Relationship Specialty Start Date End Date Andree Lindquist MD PCP - General Internal Medicine 03/19/22 documented as of this encounter
--- OUTSIDE RECORDS SUMMARY | 2024-08-15 12:08 | XMS_ITS | Clinical Summary ---
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 Lab [address] [place] [address] Mayo Donnelly MD Encounter for other general examination 07/27/[address] [facility] Lab [address] [place] [address] Mayo Donnelly MD Encounter for other general examination 07/26/[address] [facility] Lab [address] [place] [address] Mayo Donnelly MD Encounter for other general examination 07/25/[address] [facility] Lab [address] [place] [address] Mayo Donnelly MD Encounter for other general examination 07/25/[address] [facility] Lab [address] [place] [address] Mayo Donnelly MD Encounter for other general examination 07/24/[address] [facility] Lab [address] [place] [address] Mayo Donnelly MD Encounter for other general examination 07/21/[address] [facility] [address] [place] [phone] Mayo Donnelly MD Encounter for other general examination 07/16/[address] [facility] [address] [place] [phone] Mayo Donnelly MD Encounter for other general examination from Last 3 Months Surgical History Surgery Date Site/Laterality Comments HYSTERECTOMY 2007 PROCEDURE: HISTORICAL HYSTERECTOMY; COMMENT: BSO 07/13/2012,had bladder suspension then BLADDER SUSPENSION 2009 PROCEDURE: HISTORICAL BLADDER SUSPENSION; COMMENT: Dr Reis APPENDECTOMY 1960 PROCEDURE: HISTORICAL APPENDECTOMY BOWEL RESECTION 07/13/2012 PROCEDURE: HISTORICAL BOWEL RESECTION; COMMENT: Dr Brady BACK SURGERY 03/20/2020 Bilateral PROCEDURE: HISTORICAL BACK SURGERY; COMMENT: L4-5 decompression, Dr. Cheung CHOLECYSTECTOMY PROCEDURE: HISTORICAL CHOLECYSTECTOMY Medical History Medical History Date Comments Primary biliary cirrhosis (CMS/HCC) 01/26/2011 DX:Primary biliary cirrhosis (HCC); COMMENT: Dr. Forbes is GI Hyperlipidemia 01/26/2011 DX:Hyperlipidemi a Cough variant asthma 01/26/2011 DX:Cough va riant asthma Osteopenia 01/26/2011 DX:Osteopenia Diastolic dysfunction 01/26/2011 DX:Diastol ic dysfunction LBP (low back pain) 01/26/2011 DX:LBP (low back pain); COMMENT: dr. logan, no intervention, Dr. Santana at [facility] Diverticulitis 07/12/2006 DX:Diverticuliti s; COMMENT: sig resection 07/13/2012 Dr Brady Recurrent UTI DX:Recurrent UTI ; COMMENT: Dr. Reis did bladder suspension Complex ovarian cyst DX:Complex ovarian cyst; COMMENT: Dr Brady Pneumonia DX:Pneumonia; CO MMENT: post op 07/21/2012 Vasovagal syncope 03/21/2014 DX:Vasovagal s yncope; COMMENT: After liver bx x 2 and from abd pain Ovarian mass 03/18/2012 DX:Ovarian mass Murmur 04/28/2013 DX:Murmur; COMME NT: 08/22: Aortic sclerosis and MV sclerosis; mild LVH; mild diast dysfxn Microalbuminuria 11/28/2012 DX:Microalbumin uria Lymph node enlargement 03/16/2012 DX:Lymph node enlargement; COMMENT: Pericardial, incidental finding 02/20, recheck 08/24 History of DVT (deep vein thrombosis) DX:History of DVT (deep vein thrombosis); COMMENT: post op 07/21/2012 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[facility]) 11/28/2012 DX:Diabetes shelton itus type 2 with neurological manifestations ([facility]); COMMENT: PMH of carpal tunnel Type 2 diabetes mellitus wit h cataract ([facility]) 03/25/2015 DX:Type 2 diabetes mellitus with cataract ([facility]); COMMENT: Cataracts Parkinson disease ([facility]) 10/16/2015 DX:P arkinson disease ([facility]) Closed fracture of right dis sona radius 05/02/2021 DX:Closed fracture of right distal radius Family History Medical History Relation Name Comments Hypertension Brother 1 Hyperlipidemia Brother 2 Hypertension Sister 1 Hyperlipidemia Sister 2 Hemochromatosis Sister 3 Breast cancer Neg Hx Relation Name Status Comments Brother 1 Brother 2 Brother 3 Alive chol, HTN Daughter 1 Alive Daughter 2 Alive Father (Age mid 70's) thro at cancer, emphysema (cobol mainframe developer) Mother (Age mid 70's) Sister 1 Sister 2 Sister 3 Sister 4 Alive chol, HTN, kirsten chromatosis Social History Tobacco Use Types Packs/Day Years Used Date Smoking Tobacco: Former Cigarettes Q uit: 07/12/1998 Smokeless Tobacco: Never Alcohol Use Standard Drinks/Week Comments No 0 (1 standard drink = 0.6 oz pur e alcohol) Sex and Gender Information Value Date Recorded Sex Assigned at Not on file Gender Identity Not on file Sexual Orientation Not on file Obstetrics History Last Filed Vital Signs Vital Sign Reading Time Taken Comments Blood Pressure 150/83 03/19/2022 2:39 PM EDT Pulse 92 09/16/2021 9:00 AM EST Temperature - - Respiratory Rate - - Oxygen Saturation - - Inhaled Oxygen Concentration - - Weight 67.1 kg (148 lb) 03/19/2022 2:39 PM EDT Height 157.5 cm (5' 2 ) 03/19/2022 2:39 PM EDT Body Mass Index 27.07 03/19/2022 2:39 PM EDT Plan of Treatment Health Maintenance Due Date Last Done Comments Diabetes: Annual Foot Exam 10/19/1957 Diabetes: Annual Retina Eye Exam 10/19/1957 Hepatitis A Vaccines (1 of 2 - Risk 2-dose series) 10/19/1966 Hepatitis B Vaccines (1 of 3 - Risk 3-dose series) 2007 Zoster Vaccines (1 of 2) 08/14/2011 06/19/2011 DTaP,Tdap,and Td Vaccines (3 - Td or Tdap) 03/16/2022 03/16/2012, 08/06/2006 Cholesterol Screening (Lipid Panel) 06/20/2022 Depression Screening 06/20/2022 Diabetes: Annual Urine Albumin-Creatinine Ratio (uACR) 06/20/2022 Diabetes: Blood Sugar Control Test (HGBA1C) 06/20/2022 Falls Risk Assessment 06/20/2022 Hepatitis C Screening 06/20/2022 Osteoporosis Screening (Bone Density Screening) 06/20/2022 Social Influencers of Health Screening 06/20/2022 RSV Immunization Patients 60+ Years Old (1 - 1-dose 75+ series) 10/19/2022 COVID-19 Vaccine ( season) 2024 05/28/2021, 09/26/2020, 09/05/2020 Influenza Vaccine (#1) 2024 , 06/08/2022, 05/26/2021, Additional history exists Diabetes: Annual GFR (Glomerular Filtration Rate) 08/01/2025 08/01/2024, 07/27/2024, 07/25/2024, Additional history exists Hypertension/CHF/CAD Annual BMP Blood Test 08/01/2025 08/01/2024, 07/27/2024, 07/25/2024, Additional history exists Pneumococcal Vaccine: 65+ Years Completed 08/05/2016, 12/31/2014, 03/27/2009 Breast Cancer Screening Discontinued 09/08/19, 09/02/2020, 08/28/2019, Additional history exists HIB Vaccines Aged Out No longer eligi ble based on patient's age to complete this topic HPV Vaccines Aged Out No longer eligi ble based on patient's age to complete this topic IPV Vaccines Aged Out No longer eligi ble based on patient's age to complete this topic MMR Vaccines Aged Out No longer eligi ble based on patient's age to complete this topic Meningococcal ACWY Vaccine Aged Out N o longer eligible based on patient's age to complete this topic RSV Immunization Patients Under 20 months Aged Out No longer eligible based on patient's age to complete this topic Varicella Vaccines Aged Out No longer eligible based on patient's age to complete this topic Procedures Procedure Name Priority Date/Time Associated Diagnosis Comments COMPLETE BLOOD COUNT Routine 08/01/2024 4:56 AM EST Encounter for other general examination COMPREHENSIVE METABOLIC PANEL Routine 08/01/2024 4:56 AM EST Encounter for other general examination COMPLETE BLOOD COUNT Routine 07/27/2024 6:45 AM EST Encounter for other general examination COMPREHENSIVE METABOLIC PANEL Routine 07/27/2024 6:45 AM EST Encounter for other general examination URINALYSIS [...] PM EST Encounter for other general examination BASIC METABOLIC PANEL Routine 07/25/2024 4:31 AM EST Encounter for other general examination URINALYSIS WITH REFLEX MICROSCOPIC Routine 07/24/2024 6:55 PM EST Encounter for other general examination CERON URINE CULTURE TUBE Routine 07/24/2024 6:55 PM EST Encounter for other general examination URINALYSIS WITH REFLEX MICROSCOPIC Routine 07/24/2024 6:55 PM EST Encounter for other general examination COMPLETE BLOOD COUNT Routine 07/24/2024 5:17 AM EST Encounter for other general examination COMPREHENSIVE METABOLIC PANEL Routine 07/24/2024 5:17 AM EST Encounter for other general examination COMPLETE BLOOD COUNT Routine 07/21/2024 5:00 AM EST Encounter for other general examination COMPREHENSIVE METABOLIC PANEL Routine 07/21/2024 5:00 AM EST Encounter for other general examination MAGNESIUM Routine 07/16/2024 5:30 AM EST Encounter for other general examination CBC WITH AUTO DIFFERENTIAL Routine 07/16/2024 5:30 AM EST Encounter for other general examination CBC AND DIFFERENTIAL Routine 07/16/2024 5:30 AM EST Encounter for other general examination COMPREHENSIVE METABOLIC PANEL Routine 07/16/2024 5:30 AM EST Encounter for other general examination SCREENING MAMMOGRAPHY BI 2-VIEW BREAST INC CAD Routine 09/08/2021 9:58 AM EST Encounter for screening mammogram for malignant neoplasm of breast from Last 3 Months or Most Recently Relevant to Health Maintenance Results * (ABNORMAL) Complete blood count (08/01/2024 4:56 AM EST) Only the most recent of4 resultswithin the time period is included. WBC 11.1(H) 4.8 - 10.8 K/[facility] LAB HEMETOLOGY METHOD 08/01/2024 10:45 AM EST [facility] RBC 3.80 3.80 - 4.80 M/[facility] LAB HEMETOLOGY METHOD 08/01/2024 10:45 AM EST [facility] LAB Hemoglobin 9.3(L) 11.5 - 16.0 g/dL LAB HEMETOLOGY METHOD 08/01/2024 10:45 AM [facility] LAB Hematocrit 30.6(L) 35.0 - 47.0 % LAB HEMETOLOGY METHOD 08/01/2024 10:45 AM [facility] LAB MCV 81.4 79.0 - 98.0 FL LAB HEMETOLOGY METHOD 08/01/2024 10:45 AM [facility] LAB MCH 24.7(L) 27.0 - 32.0 pcg LAB HEMETOLOGY METHOD 08/01/2024 10:45 AM [facility] MCHC 30.4(L) 32.0 - 37.0 g/dL LAB HEMETOLOGY METHOD 08/01/2024 10:45 AM [facility] RDW 16.0(H) 11.0 - 15.0 % LAB HEMETOLOGY METHOD 08/01/2024 10:45 AM [facility] Platelets 327 130 - 400 K/mcL LAB HEMETOLOGY METHOD 08/01/2024 10:45 AM [facility] MPV 10.4 7.0 - 11.0 FL LAB HEMETOLOGY METHOD 08/01/2024 10:45 AM [facility] NRBC 0.0 <1.0 % LAB HEMETOLOGY METHOD 08/01/2024 10:45 AM [facility] LAB NRBC Absolute 0.00 <0.10 K/mcL LAB HEMETOLOGY METHOD 08/01/2024 10:45 AM [facility] Blood Venous blood specimen / Unknown Venipuncture / Unknown 08/01/2024 4:56 AM EST 08/01/2024 9:34 AM EST Mayo Donnelly MD LAB BLOOD ORDERABLES [facility] [address] [place] [address], * (ABNORMAL) Comprehensive metabolic panel (08/01/2024 4:56 AM EST) Only the most recent of5 resultswithin the time period is included. Sodium 136 133 - 145 mmol/L LAB CHEMISTRY METHOD 08/01/2024 11:16 AM [facility] Potassium 5.5 3.5 - 5.5 mmol/L LAB CHEMISTRY METHOD 08/01/2024 11:16 AM [facility] Chloride 105 96 - 110 mmol/L LAB CHEMISTRY METHOD 08/01/2024 11:16 AM [facility] CO2 26 21 - 32 mmol/L LAB CHEMISTRY METHOD 08/01/2024 11:16 AM [facility] Anion Gap 5 3 - 11 LAB CHEMISTRY METHOD 08/01/2024 11:16 AM [facility] Glucose 83 70 - 100 mg/dL LAB CHEMISTRY METHOD 08/01/2024 11:16 AM [facility] BUN 44(H) 5 - 25 mg/dL LAB CHEMISTRY METHOD 08/01/2024 11:16 AM [facility] Creatinine 1.15(H) 0.50 - 1.10 mg/dL LAB CHEMISTRY METHOD 08/01/2024 11:16 AM [facility] LAB eGFR 49(L) >=60 mL/min/1. 73m2 LAB CHEMISTRY METHOD 08/01/2024 11:16 AM [facility] LAB Comment:Calculation based on the??Chronic Kidney Disease Epidemiology Collaboration (CKD-EPI) equation refit??without adjustment for race. BUN/Creatinine Ratio 38.3 LAB CHEMISTRY METHOD 08/01/2024 11:16 AM [facility] Calcium 9.3 8.5 - 10.5 mg/dL LAB CHEMISTRY METHOD 08/01/2024 11:16 AM [facility] AST (SGOT) 23 10 - 42 unit/L LAB CHEMISTRY METHOD 08/01/2024 11:16 AM [facility] ALT (SGPT) 17 10 - 60 unit/L LAB CHEMISTRY METHOD 08/01/2024 11:16 AM [facility] Alkaline Phosphatase 67 42 - 121 unit/L LAB CHEMISTRY METHOD 08/01/2024 11:16 AM [facility] Total Protein 6.6 6.0 - 8.0 g/dL LAB CHEMISTRY METHOD 08/01/2024 11:16 AM [facility] Albumin 3.4 3.2 - 5.0 g/dL LAB CHEMISTRY METHOD 08/01/2024 11:16 AM [facility] Total Bilirubin 0.3 0.0 - 1.4 mg/dL LAB CHEMISTRY METHOD 08/01/2024 11:16 AM [facility] Blood Venous blood specimen / Unknown Venipuncture / Unknown 08/01/2024 4:56 AM EST 08/01/2024 9:34 AM EST Mayo Donnelly MD LAB BLOOD ORDERABLES [facility] [address] [place] [address], * (ABNORMAL) Urinalysis with reflex microscopic and culture (07/25/2024 6:02 PM EST) Specific [place] Urine 1.025 1.003 - 1.030 LAB URINALYSIS - AUTOMATED METHOD 07/26/2024 12:32 PM [facility] pH, Urine 6.5 5.0 - 8.0 pH LAB URINALYSIS - AUTOMATED METHOD 07/26/2024 12:32 PM [facility] Leukocytes, Urine Small(A) Negative LAB URINALYSIS - AUTOMATED METHOD 07/26/2024 12:32 PM [facility] Nitrite, Urine Positive(A) Negative LAB URINALYSIS - AUTOMATED METHOD 07/26/2024 12:32 PM [facility] Protein, Urine >=300(A) <=Trace mg/dL LAB URINALYSIS - AUTOMATED METHOD 07/26/2024 12:32 PM [facility] Glucose, Urine Negative Negative mg/dL LAB URINALYSIS - AUTOMATED METHOD 07/26/2024 12:32 PM [facility] Ketones, Urine Negative Negative mg/dL LAB URINALYSIS - AUTOMATED METHOD 07/26/2024 12:32 PM [facility] Urobilinogen , Urine 0.2 0.2 - 1.0 mg/dL LAB URINALYSIS - AUTOMATED METHOD 07/26/2024 12:32 PM [facility] Bilirubin, Urine Negative Negative LAB URINALYSIS - AUTOMATED METHOD 07/26/2024 12:32 PM [facility] Blood, Urine Large(A) Negative LAB URINALYSIS - AUTOMATED METHOD 07/26/2024 12:32 PM [facility] RBC, Urine >200 /HPF 07/26/2024 12:32 PM [facility] WBC, Urine 15 /HPF 07/26/2024 12:32 PM [facility] Bacteria, Urine 2+(A) (none) /HPF 07/26/2024 12:32 PM [facility] Urine Urine specimen obtained by clean catch procedure / Unknown 07/25/2024 6:02 PM EST 07/26/2024 11:14 AM EST Mayo Donnelly MD LAB URINE ORDERABLES [facility] [address] [place] [address], * Ceron urine culture tube (07/25/2024 6:02 PM EST) Only the most recent of2 resultswithin the time period is included. Extra Tube Hold for add-ons. 07/26/2024 1:01 PM EST [facility] Comment:Auto resulted. Urine Urine specimen obtained by clean catch procedure / Unknown 07/25/2024 6:02 PM EST 07/26/2024 11:14 AM EST Mayo Donnelly MD LAB URINE ORDERABLES [facility] [address] [place] [address], * (ABNORMAL) Culture urine (07/25/2024 6:02 PM EST) Culture, Urine >100,000 CFU/mL Escherichia coli(A) YARED 07/29/2024 8:22 AM EST [facility] Culture, Urine 10,000-49,000 CFU/mL Enterococcus faecalis(A) YARED 07/29/2024 8:22 AM EST [facility] Comment: The organism value for this result has been updated. These results have been appended to the previously preliminary verified report. Edited result: Previously reported as Gram Positive Cocci on 07/28/2024 at 1053 EST. Urine Urine specimen obtained by clean catch procedure / Unknown 07/25/2024 6:02 PM EST 07/26/2024 12:32 PM EST Narrative [facility] - 07/29/2024 8:22 AM EST Additional [...] MD LAB MICROBIOLOGY - G ENERAL ORDERABLES [facility] [address] [place] [address], * (ABNORMAL) Basic metabolic panel (07/25/2024 4:31 AM EST) Sodium 135 133 - 145 mmol/L LAB CHEMISTRY METHOD 07/25/2024 11:01 AM [facility] Potassium 5.5 3.5 - 5.5 mmol/L LAB CHEMISTRY METHOD 07/25/2024 11:01 AM [facility] Comment:Hemolysis present Chloride 111(H) 96 - 110 mmol/L LAB CHEMISTRY METHOD 07/25/2024 11:01 AM [facility] CO2 16(L) 21 - 32 mmol/L LAB CHEMISTRY METHOD 07/25/2024 11:01 AM [facility] Anion Gap 8 3 - 11 LAB CHEMISTRY METHOD 07/25/2024 11:01 AM [facility] Glucose 85 70 - 100 mg/dL LAB CHEMISTRY METHOD 07/25/2024 11:01 AM [facility] BUN 66(H) 5 - 25 mg/dL LAB CHEMISTRY METHOD 07/25/2024 11:01 AM [facility] Creatinine 1.20(H) 0.50 - 1.10 mg/dL LAB CHEMISTRY METHOD 07/25/2024 11:01 AM [facility] eGFR 47(L) >=60 mL/min/1. 73m2 LAB CHEMISTRY METHOD 07/25/2024 11:01 AM [facility] Comment:Calculation based on the??Chronic Kidney Disease Epidemiology Collaboration (CKD-EPI) equation refit??without adjustment for race. BUN/Creatinine Ratio 55.0 LAB CHEMISTRY METHOD 07/25/2024 11:01 AM [facility] Calcium 9.2 8.5 - 10.5 mg/dL LAB CHEMISTRY METHOD 07/25/2024 11:01 AM [facility] Blood Venous blood specimen / Unknown Venipuncture / Unknown 07/25/2024 4:31 AM EST 07/25/2024 9:59 AM EST Mayo Donnelly MD LAB BLOOD ORDERABLES [facility] [address] [place] [address], * (ABNORMAL) Urinalysis with reflex microscopic (07/24/2024 6:55 PM EST) Specific [place] Urine 1.025 1.003 - 1.030 LAB URINALYSIS - AUTOMATED METHOD 07/25/2024 1:24 PM [facility] pH, Urine 5.5 5.0 - 8.0 pH LAB URINALYSIS - AUTOMATED METHOD 07/25/2024 1:24 PM [facility] Leukocytes, Urine Moderate(A) Negative LAB URINALYSIS - AUTOMATED METHOD 07/25/2024 1:24 PM [facility] Nitrite, Urine Positive(A) Negative LAB URINALYSIS - AUTOMATED METHOD 07/25/2024 1:24 PM [facility] Protein, Urine >=300(A) <=Trace mg/dL LAB URINALYSIS - AUTOMATED METHOD 07/25/2024 1:24 PM [facility] Glucose, Urine Negative Negative mg/dL LAB URINALYSIS - AUTOMATED METHOD 07/25/2024 1:24 PM [facility] Ketones, Urine Trace(A) Negative mg/dL LAB URINALYSIS - AUTOMATED METHOD 07/25/2024 1:24 PM [facility] Urobilinogen , Urine 1.0 0.2 - 1.0 mg/dL LAB URINALYSIS - AUTOMATED METHOD 07/25/2024 1:24 PM [facility] Bilirubin, Urine Negative Negative LAB URINALYSIS - AUTOMATED METHOD 07/25/2024 1:24 PM [facility] Blood, Urine Large(A) Negative LAB URINALYSIS - AUTOMATED METHOD 07/25/2024 1:24 PM [facility] RBC, Urine >4,000(H) 0 - 4 /HPF LAB URINALYSIS - AUTOMATED METHOD 07/25/2024 1:24 PM [facility] WBC, Urine 1,000.0(H) 0 - 4 /HPF LAB URINALYSIS - AUTOMATED METHOD 07/25/2024 1:24 PM [facility] Squamous Epithelial, Urine >100(H) 0 - 60 /LPF LAB URINALYSIS - AUTOMATED METHOD 07/25/2024 1:24 PM [facility] Bacteria, Urine Many(A) Negative /HPF LAB URINALYSIS - AUTOMATED METHOD 07/25/2024 1:24 PM [facility] Hyaline Casts, Urine 0.00 0 - 3 /LPF LAB URINALYSIS - AUTOMATED METHOD 07/25/2024 1:24 PM [facility] Urine Urine specimen obtained by clean catch procedure / Unknown Non-blood Collection / Unknown 07/24/2024 6:55 PM EST 07/25/2024 10:05 AM EST Mayo Donnelly MD LAB URINE ORDERABLES [facility] [address] [place] [address], * (ABNORMAL) CBC auto differential (07/16/2024 5:30 AM EST) WBC 5.8 4.8 - 10.8 K/mcL LAB HEMETOLOGY METHOD 07/16/2024 10:35 AM [facility] RBC 3.80 3.80 - 4.80 M/mcL LAB HEMETOLOGY METHOD 07/16/2024 10:35 AM [facility] Hemoglobin 9.2(L) 11.5 - 16.0 g/dL LAB HEMETOLOGY METHOD 07/16/2024 10:35 AM [facility] Hematocrit 30.8(L) 35.0 - 47.0 % LAB HEMETOLOGY METHOD 07/16/2024 10:35 AM [facility] MCV 80.8 79.0 - 98.0 FL LAB HEMETOLOGY METHOD 07/16/2024 10:35 AM [facility] MCH 24.1(L) 27.0 - 32.0 pcg LAB HEMETOLOGY METHOD 07/16/2024 10:35 AM [facility] MCHC 29.9(L) 32.0 - 37.0 g/dL LAB HEMETOLOGY METHOD 07/16/2024 10:35 AM [facility] RDW 14.9 11.0 - 15.0 % LAB HEMETOLOGY METHOD 07/16/2024 10:35 AM [facility] Platelets 247 130 - 400 K/mcL LAB HEMETOLOGY METHOD 07/16/2024 10:35 AM [facility] MPV 10.8 7.0 - 11.0 FL LAB HEMETOLOGY METHOD 07/16/2024 10:35 AM [facility] NRBC 0.0 <1.0 % LAB HEMETOLOGY METHOD 07/16/2024 10:35 AM [facility] NRBC Absolute 0.00 <0.10 K/mcL LAB HEMETOLOGY METHOD 07/16/2024 10:35 AM [facility] Neutrophils Relative 69.6 % LAB HEMETOLOGY METHOD 07/16/2024 10:35 AM [facility] Lymphocytes Relative 16.7 % LAB HEMETOLOGY METHOD 07/16/2024 10:35 AM [facility] Monocytes Relative 10.1 % LAB HEMETOLOGY METHOD 07/16/2024 10:35 AM [facility] Eosinophils Relative 3.1 % LAB HEMETOLOGY METHOD 07/16/2024 10:35 AM [facility] Basophils Relative 0.2 % LAB HEMETOLOGY METHOD 07/16/2024 10:35 AM [facility] Immature Granulocytes Relative 0.3 % LAB HEMETOLOGY METHOD 07/16/2024 10:35 AM [facility] Neutrophils Absolute 4.01 1.50 - 7.00 K/mcL LAB HEMETOLOGY METHOD 07/16/2024 10:35 AM [facility] Lymphocytes Absolute 0.96(L) 1.00 - 5.00 K/mcL LAB HEMETOLOGY METHOD 07/16/2024 10:35 AM [facility] Monocytes Absolute 0.58 0.20 - 1.00 K/mcL LAB HEMETOLOGY METHOD 07/16/2024 10:35 AM [facility] Eosinophils Absolute 0.18 0.00 - 0.50 K/mcL LAB HEMETOLOGY METHOD 07/16/2024 10:35 AM EST [facility] Basophils Absolute 0.01 0.00 - 0.20 K/[facility] LAB HEMETOLOGY METHOD 07/16/2024 10:35 AM EST [facility] Immature Granulocytes Absolute 0.02 0.00 - 0.03 K/[facility] LAB HEMETOLOGY METHOD 07/16/2024 10:35 AM EST [facility] Blood Venous blood specimen / Unknown Venipuncture / Unknown 07/16/2024 5:30 AM EST 07/16/2024 9:10 AM EST Mayo Donnelly MD LAB BLOOD ORDERABLES Performing Organization Address City/[facility]/ZIP Co de Phone Number [facility] [address] [place] [address], * (ABNORMAL) Magnesium (07/16/2024 5:30 AM EST) Magnesium 1.6(L) 1.9 - 2.6 mg/dL LAB CHEMISTRY METHOD 07/16/2024 10:49 AM EST [facility] Blood Venous blood specimen / Unknown Venipuncture / Unknown 07/16/2024 5:30 AM EST 07/16/2024 9:10 AM EST Mayo Donnelly MD LAB BLOOD ORDERABLES [facility] [address] [place] [address], [place] [phone] * SCREENING MAMMOGRAPHY BI 2-VIEW BREAST INC CAD (09/08/2021 9:58 AM EST) Anatomical Region Laterality Modality Radiographic Graciela ging 09/02/2020 1:05 PM EST Narrative 09/09/2021 12:28 PM EST This is a summary report. The complete report is available in the patient's medical record. If you cannot access the medical record, please contact the sending organization for a detailed fax or copy. Exam: Screening mammogram Findings: Digital bilateral full-field screening mammography is performed with tomosynthesis and interpreted with the aid of computer-aided detection. ??Comparison is made with 09/02/2020 and as far back as 08/20/2017. Breast parenchyma is composed of scattered fibroglandular densities. ??No new suspicious mass, architectural distortion, or suspicious calcifications. Impression: No mammographic evidence of malignancy. BI-RADS 1 - negative Procedure Note Maria Guadalupe Isaacs MD - 06/30/2022 This is a summary report. The complete report is available in thepatient's medical record. If you cannot access the medical record, pleasecontact the sending organization for a detailed fax or copy. Exam: Screening mammogram Findings: Digital bilateral full-field screening mammography is performedwith tomosynthesis and interpreted with the aid of computer-aideddetection. Comparison is made with 09/02/2020 and as far back as08/20/2017. Breast parenchyma is composed of scattered fibroglandular densities. Nonew suspicious mass, architectural distortion, or suspiciouscalcifications. Impression: No mammographic evidence of malignancy. 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
--- OUTSIDE RECORDS SUMMARY | 2024-08-15 12:08 | XMS_ITS ---
Author Organization [facility] Address [address] [place] [address] Care Team Providers Care Hanger Name Role Phone KtAndree Pretty Primary Care Provider [phone] Active Problems Problem Noted Date Diagnosed Date Urge incontinence 02/09/2024 UTI (urinary tract infection) 10/04/2023 Bladder cancer 08/17/2023 Anxiety 08/03/2023 Arthritis 08/03/2023 Angina pectoris 08/03/2023 Atypical chest pain 08/03/2023 Deep vein thrombosis (DVT) 08/03/2023 Diverticulitis 08/03/2023 Dysphagia 08/03/2023 Moderate aortic stenosis 08/03/2023 Seasonal allergies 08/03/2023 Spinal stenosis 08/03/2023 Gross hematuria 07/22/2023 Disease due to severe acute respiratory syndrome coronavirus 2 (SARS-CoV-2) 05/21/2023 Overview (08/03/2023): Problem added by Discern Expert Mild nonproliferative diabet ic retinopathy of both eyes without macular edema associated with type 2 diabetes mellitus 07/02/2022 Diabetes mellitus with both eyes affected by mild nonproliferative retinopathy without macular edema, without long-term current use of insulin 08/19/2021 Restless legs syndrome 08/26/2020 Overview (08/03/2023): See neuro note 08/15/2020; CBC normal; will obtain ferritin Centrilobular emphysema 10/28/2018 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 Foster Vasovagal syncope 03/21/2014 Overview (08/03/2023): After liver bx x 2 and from abd pain Diabetes mellitus type 2 wit h neurological manifestations (CMS/HCC) 11/28/2012 Overview (08/03/2023): PMH of carpal tunnel Microalbuminuria 11/28/2012 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 Ovarian mass 03/18/2012 Carpal tunnel syndrome 03/16/2012 Complex ovarian cyst 02/23/2012 Controlled type 2 diabetes m ellitus with microalbuminuria, without long-term current use of insulin 11/23/2011 Overview (08/03/2023): +Microalb Hypertension 02/16/2011 Overview (08/03/2023): Last Assessment & Plan: Due to the Parkinson disease, she will have a tendency of orthostatic blood pressure drop. Indeed, she had a also static pressure drop almost 30 mmHg point from supine to standing position today. I discussed with her and her daughter the management strategy for her hypertension and also static pressure drop. We will targeting her systolic blood pressure in supine position are 140. I encouraged her to drink adequate water in the morning and avoid caffeinated beverage. She is encouraged to wear compressive stocking if she can. I will discontinue furosemide. 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 Past Plans No past plan information found. Radiation Treatments * No radiation treatments are documented for this patient in [facility]. Treatments may have been administered in another system. Lifetime Dose Tracking * Chemical Lifetime Dose Automatic Entry Manual Entr y Fluoro Time 0.2 minutes 0.2 minutes 0 minutes TotalDLP 609 mGy 609 mGy 0 mGy [id number] 10.3 mSv 10.3 mSv 0 mSv CTDIvol Max 7.2 mGy 7.2 mGy 0 mGy CTDIvol Min 5 mGy 5 mGy 0 mGy Radiation - mGy 0.7 mGy 0.7 mGy 0 mGy
--- OUTSIDE RECORDS SUMMARY | 2024-08-15 12:08 | XMS_ITS | Encounter Summary ---
Author Organization [facility] Address [address] [place] [address] Care Team Providers Care Highway Engineer Name Role Phone Andree Lindquist MD Primary Care Provider [phone] Encounter Details Date Type Department Care Team (Late st Contact Info) Description 08/01/2024 Lab Requisition [facility] - Main Lab [address] [place] [address] Mayo Donnelly MD [address] [place] [id number] Encounter for other general examination Social History [...] encounter Results * (ABNORMAL) Complete blood count (08/01/2024 4:56 AM EST) WBC 11.1(H) 4.8 - 10.8 K/[facility] LAB HEMETOLOGY METHOD 08/01/2024 10:[address] [facility] RBC 3.80 3.80 - 4.80 M/mcL LAB HEMETOLOGY METHOD 08/01/2024 10:[address] [facility] Hemoglobin 9.3(L) 11.5 - 16.0 g/dL LAB HEMETOLOGY METHOD 08/01/2024 10:[address] [facility] Hematocrit 30.6(L) 35.0 - 47.0 % LAB HEMETOLOGY METHOD 08/01/2024 10:[address] [facility] MCV 81.4 79.0 - 98.0 FL LAB HEMETOLOGY METHOD 08/01/2024 10:[address] [facility] MCH 24.7(L) 27.0 - 32.0 pcg LAB HEMETOLOGY METHOD 08/01/2024 10:[address] [facility] MCHC 30.4(L) 32.0 - 37.0 g/dL LAB HEMETOLOGY METHOD 08/01/2024 10:[address] [facility] RDW 16.0(H) 11.0 - 15.0 % LAB HEMETOLOGY METHOD 08/01/2024 10:[address] [facility] Platelets 327 130 - 400 K/mcL LAB HEMETOLOGY METHOD 08/01/2024 10:[address] [facility] MPV 10.4 7.0 - 11.0 FL LAB HEMETOLOGY METHOD 08/01/2024 10:[address] [facility] NRBC 0.0 <1.0 % LAB HEMETOLOGY METHOD 08/01/2024 10:[address] [facility] NRBC Absolute 0.00 <0.10 K/mcL LAB HEMETOLOGY METHOD 08/01/2024 10:[address] [facility] Blood Venous blood specimen / Unknown Venipuncture / Unknown 08/01/2024 4:56 AM EST 08/01/2024 9:34 AM EST Mayo Donnelly MD LAB BLOOD ORDERABLES [facility] [address] [place] [address], * (ABNORMAL) Comprehensive metabolic panel (08/01/2024 4:56 AM EST) Sodium 136 133 - 145 mmol/L LAB CHEMISTRY METHOD 08/01/2024 11:16 AM EST [facility] Potassium 5.5 3.5 - 5.5 mmol/L LAB CHEMISTRY METHOD 08/01/2024 11:[address] [facility] Chloride 105 96 - 110 mmol/L LAB CHEMISTRY METHOD 08/01/2024 11:[address] [facility] CO2 26 21 - 32 mmol/L LAB CHEMISTRY METHOD 08/01/2024 11:[address] [facility] Anion Gap 5 3 - 11 LAB CHEMISTRY METHOD 08/01/2024 11:[address] [facility] Glucose 83 70 - 100 mg/dL LAB CHEMISTRY METHOD 08/01/2024 11:[address] [facility] BUN 44(H) 5 - 25 mg/dL LAB CHEMISTRY METHOD 08/01/2024 11:[address] [facility] Creatinine 1.15(H) 0.50 - 1.10 mg/dL LAB CHEMISTRY METHOD 08/01/2024 11:[address] [facility] eGFR 49(L) >=60 mL/min/1. 73m2 LAB CHEMISTRY METHOD 08/01/2024 11:[address] [facility] Comment:Calculation based on the??Chronic Kidney Disease Epidemiology Collaboration (CKD-EPI) equation refit??without adjustment for race. BUN/Creatinine Ratio 38.3 LAB CHEMISTRY METHOD 08/01/2024 11:[address] [facility] Calcium 9.3 8.5 - 10.5 mg/dL LAB CHEMISTRY METHOD 08/01/2024 11:[address] [facility] AST (SGOT) 23 10 - 42 unit/L LAB CHEMISTRY METHOD 08/01/2024 11:[address] [facility] ALT (SGPT) 17 10 - 60 unit/L LAB CHEMISTRY METHOD 08/01/2024 11:[address] [facility] Alkaline Phosphatase 67 42 - 121 unit/L LAB CHEMISTRY METHOD 08/01/2024 11:[address] [facility] Total Protein 6.6 6.0 - 8.0 g/dL LAB CHEMISTRY METHOD 08/01/2024 11:[address] [facility] Albumin 3.4 3.2 - 5.0 g/dL LAB CHEMISTRY METHOD 08/01/2024 11:[address] [facility] Total Bilirubin 0.3 0.0 - 1.4 mg/dL LAB CHEMISTRY METHOD 08/01/2024 11:[address] [facility] Blood Venous blood specimen / Unknown Venipuncture / Unknown 08/01/2024 4:56 AM EST 08/01/2024 9:34 AM EST Mayo Donnelly MD LAB BLOOD ORDERABLES Performing Organization Address City/State/[facility] Co de Phone Number [facility] [address] [phone] documented in this encounter Visit Diagnoses Diagnosis Encounter for other general examination documented in this encounter Care Teams Highway Engineer Relationship Specialty Start Date End Date Andree Lindquist MD PCP - General Internal Medicine 03/19/22 documented as of this encounter
--- OUTSIDE RECORDS SUMMARY | 2024-08-15 12:09 | XMS_ITS | Encounter Summary ---
Author Organization [facility] Address [address] [place] [address] Care Team Providers Care Thread Tool Grinder Set Up Operator Name Role Phone Andree Lindquist MD Primary Care Provider [phone] Encounter Details Date Type Department Care Team (Late st Contact Info) Description 07/21/2024 Lab Requisition [facility] - Main Lab [address] [place] [phone] Mayo Donnelly MD [address] [place] [address] Encounter for other general examination Social History [...] Associated Diagnosis Comments COMPLETE BLOOD COUNT Routine 07/21/2024 5:00 AM EST Encounter for other general examination COMPREHENSIVE METABOLIC PANEL Routine 07/21/2024 5:00 AM EST Encounter for other general examination documented in this encounter Results * (ABNORMAL) Complete blood count (07/21/2024 5:00 AM EST) WBC 6.6 4.8 - 10.8 /[facility] LAB HEMETOLOGY METHOD 07/21/2024 8:01 AM EST [facility] RBC 3.90 3.80 - 4.80 M/mcL LAB HEMETOLOGY METHOD 07/21/2024 8:01 AM [facility] Hemoglobin 9.4(L) 11.5 - 16.0 g/dL LAB HEMETOLOGY METHOD 07/21/2024 8:01 AM [facility] Hematocrit 31.3(L) 35.0 - 47.0 % LAB HEMETOLOGY METHOD 07/21/2024 8:01 AM [facility] MCV 80.3 79.0 - 98.0 FL LAB HEMETOLOGY METHOD 07/21/2024 8:01 AM [facility] MCH 24.1(L) 27.0 - 32.0 pcg LAB HEMETOLOGY METHOD 07/21/2024 8:01 AM [facility] MCHC 30.0(L) 32.0 - 37.0 g/dL LAB HEMETOLOGY METHOD 07/21/2024 8:01 AM [facility] RDW 15.4(H) 11.0 - 15.0 % LAB HEMETOLOGY METHOD 07/21/2024 8:01 AM [facility] Platelets 281 130 - 400 K/mcL LAB HEMETOLOGY METHOD 07/21/2024 8:01 AM [facility] MPV 10.5 7.0 - 11.0 FL LAB HEMETOLOGY METHOD 07/21/2024 8:01 AM [facility] NRBC 0.0 <1.0 % LAB HEMETOLOGY METHOD 07/21/2024 8:01 AM [facility] NRBC Absolute 0.00 <0.10 K/mcL LAB HEMETOLOGY METHOD 07/21/2024 8:01 AM [facility] Blood Venous blood specimen / Unknown Venipuncture / Unknown 07/21/2024 5:00 AM EST 07/21/2024 7:36 AM EST Mayo Donnelly MD LAB BLOOD ORDERABLES [facility] [address] [place] [address], * (ABNORMAL) Comprehensive metabolic panel (07/21/2024 5:00 AM EST) Sodium 133 133 - 145 mmol/L LAB CHEMISTRY METHOD 07/21/2024 8:49 AM [facility] Potassium 5.5 3.5 - 5.5 mmol/L LAB CHEMISTRY METHOD 07/21/2024 8:49 AM [facility] Chloride 103 96 - 110 mmol/L LAB CHEMISTRY METHOD 07/21/2024 8:49 AM [facility] CO2 24 21 - 32 mmol/L LAB CHEMISTRY METHOD 07/21/2024 8:49 AM [facility] Anion Gap 6 3 - 11 LAB CHEMISTRY METHOD 07/21/2024 8:49 AM [facility] Glucose 103(H) 70 - 100 mg/dL LAB CHEMISTRY METHOD 07/21/2024 8:49 AM [facility] BUN 54(H) 5 - 25 mg/dL LAB CHEMISTRY METHOD 07/21/2024 8:49 AM [facility] Comment:Results verified by repeat testing Creatinine 1.34(H) 0.50 - 1.10 mg/dL LAB CHEMISTRY METHOD 07/21/2024 8:49 AM [facility] eGFR 41(L) >=60 mL/min/1. 73m2 LAB CHEMISTRY METHOD 07/21/2024 8:49 AM [facility] Comment:Calculation based on the??Chronic Kidney Disease Epidemiology Collaboration (CKD-EPI) equation refit??without adjustment for race. BUN/Creatinine Ratio 40.3 LAB CHEMISTRY METHOD 07/21/2024 8:49 AM EST [facility] Calcium 9.8 8.5 - 10.5 mg/dL LAB CHEMISTRY METHOD 07/21/2024 8:49 AM [facility] AST (SGOT) 19 10 - 42 unit/L LAB CHEMISTRY METHOD 07/21/2024 8:49 AM [facility] ALT (SGPT) 16 10 - 60 unit/L LAB CHEMISTRY METHOD 07/21/2024 8:49 AM [facility] Alkaline Phosphatase 68 42 - 121 unit/L LAB CHEMISTRY METHOD 07/21/2024 8:49 AM [facility] Total Protein 6.8 6.0 - 8.0 g/dL LAB CHEMISTRY METHOD 07/21/2024 8:49 AM [facility] Albumin 3.5 3.2 - 5.0 g/dL LAB CHEMISTRY METHOD 07/21/2024 8:49 AM [facility] Total Bilirubin 0.3 0.0 - 1.4 mg/dL LAB CHEMISTRY METHOD 07/21/2024 8:49 AM [facility] Blood Venous blood specimen / Unknown Venipuncture / Unknown 07/21/2024 5:00 AM EST 07/21/2024 7:36 AM EST Mayo Donnelly MD LAB BLOOD ORDERABLES [facility] [address] [place] [address], documented in this encounter Visit Diagnoses Diagnosis Encounter for other general examination documented in this encounter Care Teams Thread Tool Grinder Set Up Operator Relationship Specialty Start Date End Date Andree Lindquist MD PCP - General Internal Medicine 03/19/22 documented as of this encounter
--- OUTSIDE RECORDS SUMMARY | 2024-08-15 12:09 | XMS_ITS | Encounter Summary ---
Author Organization [employer] Address [address] [facility] 7[address] [place] [address] Care Team Providers Care Anti Air Warfare Operations Officer Name Role Phone Unavailable Primary Care Provider Unavailabl e Encounter Details Date Type Department Care Team (Latest Contact Info) Description 09/28/2018 Abstract [facility] CONVERSIONS Dental, Provider, DDS Social [...] Description 08/23/2024 11:00 AM EST Office Visit [facility] DENTAL [address] [place] [address] Diane Burns documented as of this encounter Visit Diagnoses Not on filedocumented in this encounter Care Teams Anti Air Warfare Operations Officer Relationship Specialty Start Date End Date Dr. Meghan Hicks Primary Care Provider 08/17/[address] Andree Lindquist [facility] Primary Care [place], [place] Primary Care Provider 08/17/22 documented as of this encounter
--- OUTSIDE RECORDS SUMMARY | 2024-08-15 12:09 | XMS_ITS | Referral Summary ---
Author Organization [facility] Address [address] [place] [address] Care Team Providers Care Manager Long Term Care Name Role Phone KtAndree Pretty Primary Care Provider [phone] Encounters Date Type Department Care Team Description 07/24/2024 Orders Only [facility] [address] [place] [phone] Risk Control Manager: Christen Dempsey MD Acute cystitis with hematuria (Primary Dx) 06/14/2024 8:30 AM EST Follow-Up [facility] [address] [place] [phone] Risk Control Manager: Christen Dempsey MD Gross hematuria (Primary Dx); Urge incontinence; Acute cystitis with hematuria from Last 3 Months Allergies Active Allergy Reactions Criticality Noted Date Comments Cefdinir Rash 07/22/2023 Sulfa (Sulfonamide Antibiotics) Rash 07/12 Trimethoprim Rash 07/22/2023 Medications acetaminophen (TYLENOL) 650 mg 8 hr tablet Take 650 mg by mouth every 8 hours as needed. Active glipiZIDE (GLUCOTROL) 5 mg tablet Take 2.5 mg by mouth every evening. 05/26/2023 Active acidophilus-pec tin, citrus 25 million cell -100 mg tablet Take 1 capsule by mouth after lunch. 05/19/2023 Active losartan (COZAAR) 25 mg tablet Take 25 mg by mouth 2 times a day. Takes 50mg qAM and 25mg at 2pm Active Estring 2 mg (7.5 mcg /24 hour) vaginal ring Apply 2 mg to the vagina every 3 months. 05/24/2023 Active baclofen (LIORESAL) 10 mg tablet Take 10 mg by mouth 3 times a day as needed (Rarely takes this). 05/19/2023 Active Myrbetriq 50 mg tablet 50 mg every morning. 07/13/[address] (PROTONIX) 40 mg tablet 40 mg at bed time. Active sertraline (ZOLOFT) 50 mg tablet Take 50 mg by mouth every morning. Active umeclidinium (INCRUSE ELLIPTA) 62.5 mcg/actuation blister with device Take 1 puff by mouth every morning. 05/19/2023 Active LORazepam (ATIVAN) 0.5 mg tablet Take 0.5 mg by mouth every 8 hours as needed. 05/19/2023 Active carbidopa-levod opa (SINEMET) 25-100 mg per tablet Take 2 tablets by mouth 3 times a day. Active Ventolin HFA 90 mcg/actuation inhaler Inhale 2 puffs by mouth every 6 hours as needed. 06/24/2023 Active ursodioL (ACTIGALL) 300 mg capsule Take 2 capsules by mouth 2 times a day. Active fenofibrate (LOFIBRA) 54 mg tablet Take 54 mg by mouth once a day. 11/22/2023 Active trospium (SANCTURA) 20 mg tablet Take 20 mg by mouth 2 times a day. Active Active Problems Problem Noted Date Diagnosed [...] Wall Prolapse 03/17/2009 Overview (03/30/2017): UTEROVAG PROLAPS-INCOMPL Social History Tobacco Use Types Packs/Day Years Used Date Smoking Tobacco: Former Cigarettes Q uit: 1998 Smokeless Tobacco: Never Tobacco Cessation:Counseling Given: Not Answered Alcohol Use Standard Drinks/Week Comments Not Currently 0 (1 standard drink = 0.6 oz pur e alcohol) Comments No Sex and Gender Information Value Date Recorded Sex Assigned at Female 07/21/2023 1:37 PM EST Legal Sex Female 4:19 AM EDT Gender Identity Female 07/21/2023 1:37 PM EST Sexual Orientation Choose not to disclose 2023 1:37 PM EST Last Filed Vital Signs Vital Sign Reading Time Taken Comments Blood Pressure 152/68 06/14/2024 8:35 AM EST Pulse 88 06/14/2024 8:35 AM EST Temperature 36.4 ??C (97.5 ??F) 11/23/2023 11:30 AM E DT Respiratory Rate 16 11/23/2023 11:30 AM EDT Oxygen Saturation 95% 11/23/2023 11:30 AM EDT Inhaled Oxygen Concentration - - Weight 62.3 kg (137 lb 6.4 oz) 11/23/2023 9:05 A M EDT Height 157.5 cm (5' 2 ) 11/23/2023 9:05 AM EDT Body Mass Index 25.13 11/23/2023 9:05 AM EDT Plan of Treatment Upcoming Encounters Date Type Department Care Team (Late st Contact Info) Description 06/20/2025 10:45 AM EST Follow-Up [facility] [address] [place] [address] Risk Control Manager: Christen Dempsey MD [address] [place] [address] Procedures * Due to [facility] law, this organization might not be sharing negative HIV tests. Procedure Name Priority Date/Time Associated Diagnosis Comments BASIC METABOLIC PANEL Routine 08/18/2023 4:45 AM EST from Last 3 Months or Most Recently Relevant to Health Maintenance Results * Due to [facility] law, this organization might not be sharing negative HIV tests. * (ABNORMAL) Basic Metabolic Panel (08/18/2023 4:45 AM EST) NA 137 135 - 145 mmol/L 08/18/2023 6:37 AM EST [facility] K 3.9 3.5 - 5.3 mmol/L 08/18/2023 6:37 AM EST [facility] Cl 106 97 - 110 mmol/L 08/18/2023 6:37 AM EST [facility] CO2 23(L) 24 - 32 mmol/L 08/18/2023 6:37 AM EST [facility] BUN 37(H) 7 - 23 mg/dL 08/18/2023 6:37 AM EST [facility] Creatinine 0.84 0.50 - 1.20 mg/dL 08/18/2023 6:37 AM EST [facility] Glucose 66(L) 70 - 99 mg/dL 08/18/2023 6:37 AM EST [facility] Calcium 8.3(L) 8.7 - 10.7 mg/dL 08/18/2023 6:37 AM EST [facility] Anion Gap 8 5 - 15 08/18/2023 6:37 AM EST [facility] eGFR 73 >=60 mL/min/1. 73m2 08/18/2023 6:37 AM EST [facility] Comment:The estimated glomer ular filtration rate (eGFR) is calculated using a new formula developed by the NKF-ASN task force to eliminate race-based correction factors. The new formula uses serum/plasma creatinine, age, and gender to determine eGFR. A value below 60mls/min might indicate kidney disease and will be flagged. For additional information, see Landon et al, Am J Kidney Dis. 2021;79(2):268- 288, A Unifying Approach for GFR estimation: Recommendations of the NKF-ASN Task Force on Reassessing the Inclusion of Race in Diagnosing Kidney Disease . Blood Structure of peripheral vein / Unknown Venipuncture / Unknown 08/18/2023 4:45 AM EST 08/18/2023 5:51 AM EST us Christen Lopes MD LAB BLOOD ORDERABLES Final Re sult [facility] [address] [place] [address], from Last 3 Months or Most Recently Relevant to Health Maintenance Insurance [facility] MEDICARE Advance Directives * Full Code (Latest Code Status on File) Date Activated Date Inactivated Comments 11/23/2023 8:48 AM 11/23/2023 1:53 PM * Full Code Date Activated Date Inactivated Comments 08/17/2023 10:08 AM 08/18/2023 4:16 PM Healthcare Agents on File Name Relationship Healthcare Agent Relationship Communication Martita Pope Daughter Health Care Agent [email or web address] Care Teams Manager Long Term Care Relationship Specialty Start Date End Date Andree Lindquist PCP - General Family Medicine 03/26/23
--- OUTSIDE RECORDS SUMMARY | 2024-08-15 12:09 | XMS_ITS | Encounter Summary ---
Author Organization [employer] Address [address] [facility] 7t [place] [address] Care Team Providers Care Counseling Specialist Name Role Phone Unavailable Primary Care Provider Unavailabl e Encounter Details Date Type Department Care Team (Latest Contact Info) Description 10/18/2020 Abstract [facility] CONVERSIONS Dental, Provider, DDS Social [...] AM EST Office Visit [facility] DENTAL [address] [place] [address] Diane Burns documented as of this encounter Visit Diagnoses Not on filedocumented in this encounter Care Teams Counseling Specialist Relationship Specialty Start Date End Date Dr. Meghan Hicks Primary Care Provider 08/17/[address] Andree Lindquist [facility] Care [place], [place] Primary Care Provider 08/17/22 documented as of this encounter
--- OUTSIDE RECORDS SUMMARY | 2024-08-15 12:09 | XMS_ITS | Clinical Summary ---
Author Organization [facility] Address [address] [place] [address] Care Team Providers Care Quality Assistant Name Role Phone KtAndree Pretty Primary Care Provider [phone] Allergies Active Allergy Reactions Criticality Noted Date [...] Wall Prolapse 03/17/2009 Overview (03/30/2017): UTEROVAG PROLAPS-INCOMPL Encounters Date Type Department Care Team Description 07/24/2024 Orders Only [facility] [address] [place] [address] Staff Genetic Counselor: Christen Dempsey MD Acute cystitis with hematuria (Primary Dx) 06/14/2024 8:30 AM EST Follow-Up [facility] [address] [place] [address] Staff Genetic Counselor: Christen Dempsey MD Gross hematuria (Primary Dx); Urge incontinence; Acute cystitis with hematuria from Last 3 Months Family History Medical History Relation Name Comments Throat cancer Father Colon cancer Mother Relation Name Status Comments Father Mother Social History Tobacco Use Types Packs/Day Years [...] Info) Description 06/20/2025 10:45 AM EST Follow-Up [facility] [address] [place] [address] Staff Genetic Counselor: Paulette Lopes, Christen Dodd MD [address] [place] [address] Health Maintenance Due Date Last Done Comments Hemoglobin A1C 1945 Hepatitis C Screening 1945 Urine Microalbumin 10/19/1957 Osteoporosis Screening 10/19/1997 Hepatitis B Vaccines (1 of 3 - Risk 3-dose series) 2007 Zoster Vaccines (1 of 2) 08/14/2011 06/19/2011 DTaP,Tdap,and Td Vaccines (2 - Td or Tdap) 03/16/2022 03/16/2012, 08/06/2006 RSV Vaccine (60+ years old a nd patients) (1 - 1-dose 75+ series) 10/19/2022 COVID-19 Vaccine (4 - 2023-2 5 season) 2024 05/28/2021, 09/26/2020, 09/05/2020 Influenza Vaccine (#1) 2024 3, 06/08/2022, 04/29/2020, Additional history exists Alcohol/Substance Use Screening 07/12/2024 Depression Screening and Follow-Up 07/12/2024 Health Care Proxy Review 07/12/2024 Social Drivers of Health Odalis ual Screening 07/12/2024 Basic Metabolic Panel 08/18/2024 08/18/2023 , 08/17/2023, 07/22/2023, Additional history exists Ophthalmology Exam 08/26/2024 08/26/2023, 08/17/2022 Pneumococcal Vaccine: 65+ Years Completed 08/05/2016, 12/31/2014, 03/27/2009 Cologuard Discontinued 10/06/2021, 10/06/2021 Colon Cancer Screening Discontinued Colonoscopy Discontinued FOBT / Fit Test Discontinued Sigmoidoscopy Discontinued Procedures * Due to [place] [employer] law, this organization might not be sharing negative HIV tests. Procedure Name Priority Date/Time Associated Diagnosis Comments BASIC METABOLIC PANEL Routine 08/18/2023 4:45 AM EST from Last 3 Months or Most Recently Relevant to Health Maintenance Results * Due to [place] [employer] law, this organization might not be sharing negative HIV tests. * (ABNORMAL) Basic Metabolic Panel (08/18/2023 4:45 AM EST) NA 137 135 - 145 mmol/L 08/18/2023 6:37 AM EST [facility] K 3.9 3.5 - 5.3 mmol/L 08/18/2023 6:37 AM EST [facility] Cl 106 97 - 110 mmol/L 08/18/2023 6:37 AM EST [facility] CO2 23(L) 24 - 32 mmol/L 08/18/2023 6:37 AM EST [facility] BUN 37(H) 7 - 23 mg/dL 08/18/2023 6:37 AM EST [facility] Creatinine 0.84 0.50 - 1.20 mg/dL 08/18/2023 6:37 AM EST [facility] Glucose 66(L) 70 - 99 mg/dL 08/18/2023 6:37 AM EST [facility] Calcium 8.3(L) 8.7 - 10.7 mg/dL 08/18/2023 6:37 AM EST [facility] Anion Gap 8 5 - 15 08/18/2023 6:37 AM EST [facility] eGFR 73 >=60 mL/min/1. 73m2 08/18/2023 6:37 AM EST [facility] Comment:The estimated glomer ular filtration [...] MD LAB BLOOD ORDERABLES Final Re sult [facility] [address] [place] [address], from Last 3 Months or Most Recently Relevant to Health Maintenance Insurance [facility] SUPP MEDICARE Advance Directives * Full Code (Latest Code Status on File) Date Activated Date Inactivated Comments 11/23/2023 8:48 AM 11/23/2023 1:53 PM * Full Code Date Activated Date Inactivated Comments 08/17/2023 10:08 AM 08/18/2023 4:16 PM Healthcare Agents on File Name Relationship Healthcare Agent Relationship Communication Martita Pope Daughter Health Care Agent [email or web address] Care Teams Quality Assistant Relationship Specialty Start Date End Date Andree Lindquist PCP - General Family Medicine 03/26/23
== END 2024-08-15 12:07 | disposition home or self-care (01) ==
PROVIDERS: PCP Internal Medicine; Visit Provider Internal Medicine
DX: E11.42 Type 2 diabetes mellitus with diabetic polyneuropathy (principal); I10 Essential (primary) hypertension; I35.0 Nonrheumatic aortic (valve) stenosis; Z09 Encounter for follow-up examination after completed treatment for conditions other than malignant neoplasm; Z86.73 Personal history of transient ischemic attack (TIA), and cerebral infarction without residual deficits; Z95.2 Presence of prosthetic heart valve

== ENCOUNTER 2024-08-15 11:56 | Outpatient (REF) | payer MEDICARE, SELFPAY ==
--- OUTSIDE RECORDS SUMMARY | 2024-08-15 12:48 | XMS_ITS | Encounter Summary ---
Author Organization [employer] Address [address] [facility] 7t [place] [address] Care Team Providers Care Driver Trainer Name Role Phone Unavailable Primary Care Provider [...] Description 08/23/2024 11:00 AM EST Office Visit [facility] DENTAL [address] [place] [address] Diane Burns documented as of this encounter Visit Diagnoses Not on filedocumented in this encounter Care Teams Driver Trainer Relationship Specialty Start Date End Date Dr. Meghan Hicks Primary Care Provider 08/17/[address] Andree Lindquist [facility] Primary Care [place], [place] Primary Care Provider 08/17/22 documented as of this encounter
--- OUTSIDE RECORDS SUMMARY | 2024-08-15 12:48 | XMS_ITS | Encounter Summary ---
Author Organization [facility] Address [address] [place] [address] Care Team Providers Care Seo Manager Name Role Phone Andree Lindquist MD Primary Care Provider [phone] Encounter Details Date Type Department Care Team (Late st Contact Info) Description 07/25/2024 Lab Requisition [facility] - Main Lab [address] [place] [phone] Mayo Donnelly MD [address] [place] [address] Encounter for other general examination Social History [...] LAB CHEMISTRY METHOD 07/25/2024 11:01 AM EST [facility] Potassium 5.5 3.5 - 5.5 mmol/L LAB CHEMISTRY METHOD 07/25/2024 11:01 AM EST [facility] Comment:Hemolysis present Chloride 111(H) 96 - 110 mmol/L LAB CHEMISTRY METHOD 07/25/2024 11:01 AM [facility] CO2 16(L) 21 - 32 mmol/L LAB CHEMISTRY METHOD 07/25/2024 11:01 AM [facility] Anion Gap 8 3 - 11 LAB CHEMISTRY METHOD 07/25/2024 11:01 AM [facility] Glucose 85 70 - 100 mg/dL LAB CHEMISTRY METHOD 07/25/2024 11:01 AM [facility] BUN 66(H) 5 - 25 mg/dL LAB CHEMISTRY METHOD 07/25/2024 11:01 AM [facility] Creatinine 1.20(H) 0.50 - 1.10 mg/dL LAB CHEMISTRY METHOD 07/25/2024 11:01 AM [facility] eGFR 47(L) >=60 mL/min/1. 73m2 LAB CHEMISTRY METHOD 07/25/2024 11:01 AM [facility] Comment:Calculation based on the??Chronic Kidney Disease Epidemiology Collaboration (CKD-EPI) equation refit??without adjustment for race. BUN/Creatinine Ratio 55.0 LAB CHEMISTRY METHOD 07/25/2024 11:01 AM [facility] Calcium 9.2 8.5 - 10.5 mg/dL LAB CHEMISTRY METHOD 07/25/2024 11:01 AM [facility] Blood Venous blood specimen / Unknown Venipuncture / Unknown 07/25/2024 4:31 AM EST 07/25/2024 9:59 AM EST Mayo Donnelly MD LAB BLOOD ORDERABLES [facility] [address] [place] [address], documented in this encounter Visit Diagnoses Diagnosis Encounter for other general examination documented in this encounter Care Teams Seo Manager Relationship Specialty Start Date End Date Andree Lindquist MD PCP - General Internal Medicine 03/19/22 documented as of this encounter
--- OUTSIDE RECORDS SUMMARY | 2024-08-15 12:48 | XMS_ITS | Encounter Summary ---
Author Organization [facility] Address [address] [place] [address] Care Team Providers Care Last Dipper Name Role Phone Andree Lindquist MD Primary Care Provider [phone] Encounter Details Date Type Department Care Team (Late st Contact Info) Description 07/27/2024 Lab Requisition [facility] - Main Lab [address] [place] [phone] Mayo Donnelly MD [address] [place] [address] Encounter for other general examination Social History [...] AM EST) WBC 6.5 4.8 - 10.8 /[facility] LAB HEMETOLOGY METHOD 07/27/2024 11:45 AM EST [facility] RBC 3.80 3.80 - 4.80 M/mcL LAB HEMETOLOGY METHOD 07/27/2024 11:45 AM [facility] Hemoglobin 9.2(L) 11.5 - 16.0 g/dL LAB HEMETOLOGY METHOD 07/27/2024 11:45 AM [facility] Hematocrit 30.8(L) 35.0 - 47.0 % LAB HEMETOLOGY METHOD 07/27/2024 11:45 AM [facility] MCV 81.7 79.0 - 98.0 FL LAB HEMETOLOGY METHOD 07/27/2024 11:45 AM [facility] MCH 24.4(L) 27.0 - 32.0 pcg LAB HEMETOLOGY METHOD 07/27/2024 11:45 AM [facility] MCHC 29.9(L) 32.0 - 37.0 g/dL LAB HEMETOLOGY METHOD 07/27/2024 11:45 AM [facility] RDW 15.8(H) 11.0 - 15.0 % LAB HEMETOLOGY METHOD 07/27/2024 11:45 AM [facility] Platelets 318 130 - 400 K/mcL LAB HEMETOLOGY METHOD 07/27/2024 11:45 AM [facility] MPV 10.3 7.0 - 11.0 FL LAB HEMETOLOGY METHOD 07/27/2024 11:45 AM [facility] NRBC 0.0 <1.0 % LAB HEMETOLOGY METHOD 07/27/2024 11:45 AM [facility] NRBC Absolute 0.00 <0.10 K/mcL LAB HEMETOLOGY METHOD 07/27/2024 11:45 AM [facility] Blood Venous blood specimen / Unknown Venipuncture / Unknown 07/27/2024 6:45 AM EST 07/27/2024 10:56 AM EST Mayo Donnelly MD LAB BLOOD ORDERABLES [facility] [address] [place] [address], * (ABNORMAL) Comprehensive metabolic panel (07/27/2024 6:45 AM EST) Sodium 134 133 - 145 mmol/L LAB CHEMISTRY METHOD 07/27/2024 2:10 PM EST [facility] Potassium 5.2 3.5 - 5.5 mmol/L LAB CHEMISTRY METHOD 07/27/2024 2:10 PM [facility] Chloride 107 96 - 110 mmol/L LAB CHEMISTRY METHOD 07/27/2024 2:10 PM [facility] CO2 20(L) 21 - 32 mmol/L LAB CHEMISTRY METHOD 07/27/2024 2:10 PM [facility] Anion Gap 7 3 - 11 LAB CHEMISTRY METHOD 07/27/2024 2:10 PM [facility] Glucose 101(H) 70 - 100 mg/dL LAB CHEMISTRY METHOD 07/27/2024 2:10 PM [facility] BUN 43(H) 5 - 25 mg/dL LAB CHEMISTRY METHOD 07/27/2024 2:10 PM [facility] Creatinine 0.99 0.50 - 1.10 mg/dL LAB CHEMISTRY METHOD 07/27/2024 2:10 PM [facility] eGFR 59(L) >=60 mL/min/1. 73m2 LAB CHEMISTRY METHOD 07/27/2024 2:10 PM [facility] Comment:Calculation based on the??Chronic Kidney Disease Epidemiology Collaboration (CKD-EPI) equation refit??without adjustment for race. BUN/Creatinine Ratio 43.4 LAB CHEMISTRY METHOD 07/27/2024 2:10 PM [facility] Calcium 9.4 8.5 - 10.5 mg/dL LAB CHEMISTRY METHOD 07/27/2024 2:10 PM [facility] AST (SGOT) 23 10 - 42 unit/L LAB CHEMISTRY METHOD 07/27/2024 2:10 PM [facility] ALT (SGPT) 16 10 - 60 unit/L LAB CHEMISTRY METHOD 07/27/2024 2:10 PM [facility] Alkaline Phosphatase 65 42 - 121 unit/L LAB CHEMISTRY METHOD 07/27/2024 2:10 PM EST [facility] Total Protein 6.4 6.0 - 8.0 g/dL LAB CHEMISTRY METHOD 07/27/2024 2:10 PM [facility] Albumin 3.5 3.2 - 5.0 g/dL LAB CHEMISTRY METHOD 07/27/2024 2:10 PM [facility] Total Bilirubin 0.2 0.0 - 1.4 mg/dL LAB CHEMISTRY METHOD 07/27/2024 2:10 PM EST [facility] Blood Venous blood specimen / Unknown Venipuncture / Unknown 07/27/2024 6:45 AM EST 07/27/2024 10:56 AM EST Mayo Donnelly MD LAB BLOOD ORDERABLES Performing Organization Address City/State/[facility] Co de Phone Number [facility] [address] [phone] documented in this encounter Visit Diagnoses Diagnosis Encounter for other general examination documented in this encounter Care Teams Last Dipper Relationship Specialty Start Date End Date Andree Lindquist MD PCP - General Internal Medicine 03/19/22 documented as of this encounter
--- OUTSIDE RECORDS SUMMARY | 2024-08-15 12:48 | XMS_ITS | Encounter Summary ---
Author Organization [facility] Address [address] [place] [address] Care Team Providers Care Tube Maker Name Role Phone Andree Lindquist MD Primary Care Provider Encounter Details Date Type Department Care Team (Late st Contact Info) Description 08/01/2024 Lab Requisition [facility] - Main Lab [address] [place] [address] Mayo Donnelly MD [address] [place] [address] Encounter for other general examination Social History [...] AM EST) WBC 11.1(H) 4.8 - 10.8 K/[facility] LAB HEMETOLOGY METHOD 08/01/2024 10:45 AM [facility] RBC 3.80 3.80 - 4.80 M/mcL LAB HEMETOLOGY METHOD 08/01/2024 10:45 AM [facility] Hemoglobin 9.3(L) 11.5 - [...] EST Mayo Donnelly MD LAB BLOOD ORDERABLES [facility] [address] [place] [address], * (ABNORMAL) Comprehensive metabolic panel (08/01/2024 4:56 AM EST) Sodium 136 133 - 145 mmol/L LAB CHEMISTRY METHOD 08/01/2024 11:16 AM EST [facility] Potassium 5.5 3.5 - 5.5 [...] MD LAB BLOOD ORDERABLES Performing Organization Address City/State/[facility] Co de Phone Number [facility] [address] [phone] documented in this encounter Visit Diagnoses Diagnosis Encounter for other general examination documented in this encounter Care Teams Tube Maker Relationship Specialty Start Date End Date Andree Lindquist MD PCP - General Internal Medicine 03/19/22 documented as of this encounter
--- OUTSIDE RECORDS SUMMARY | 2024-08-15 12:48 | XMS_ITS ---
Author Organization [facility] Address [address] [place] [address] Care Team Providers Care Biophysics Professor Name Role Phone KtAndree Pretty Primary Care Provider [phone] Active Problems Problem Noted Date Diagnosed Date [...] treatments are documented for this patient in [facility]. Treatments may have been administered in another system. Lifetime Dose Tracking * Chemical Lifetime Dose Automatic Entry Manual Entr y Fluoro Time 0.2 minutes 0.2 minutes 0 minutes TotalDLP 609 mGy 609 mGy 0 mGy [id number] 10.3 mSv 10.3 mSv 0 mSv CTDIvol Max 7.2 mGy 7.2 mGy 0 mGy CTDIvol Min 5 mGy 5 mGy 0 mGy Radiation - mGy 0.7 mGy 0.7 mGy 0 mGy
--- OUTSIDE RECORDS SUMMARY | 2024-08-15 12:48 | XMS_ITS | Clinical Summary ---
Author Organization [employer] Address [address] [place] [address] 7 [place] [address] Care Team Providers Care Deck Hand Name Role Phone Unavailable Primary Care Provider Unavailabl e Allergies Active Allergy Reactions Criticality Noted Date Comments Cefdinir Unknown 07/02/2022 Sulfa Antibiotics Unknown 07/02/2022 Trimethoprim Unknown 07/02/2022 Medications Umeclidinium [place] (INCRUSE ELLIPTA [place]) Incruse Ellipta Ac tive [...] Description 07/07/2024 9:00 AM EST Office Visit [facility] [address] [place] [address] Kiet Leonard Jr., DMD 06/30/2024 9:50 AM EST Office Visit [facility] DENTAL [address] [place] [address] Kiet Leonard Jr., DMD 06/21/2024 3:00 PM EST Office Visit [facility] DENTAL [address] [place] [address] Landon Trammell DDS Encounter for dental examination [...] [facility] DENTAL [address] [place] [address] Diane Burns Health Maintenance Due Date Last [...] Relevant to Health Maintenance Insurance # [address] [place] [address] [place] [phone] [facility] MEDEX CARE DENTAL - HSN FULL (MEDICAID) Care Teams Deck Hand Relationship Specialty Start Date End Date Dr. Andree Lindquist [facility] Primary Care [place], [place] Primary Care Provider 08/17/22
--- OUTSIDE RECORDS SUMMARY | 2024-08-15 12:48 | XMS_ITS | Encounter Summary ---
Author Organization [facility] Address [address] [place] [address] Care Team Providers Care Latex Foam Worker Name Role Phone Andree Lindquist Primary Care Provider [phone] Encounter Details Date Type Department Care Team (Late Contact Info) Description 07/24/2024 Orders Only [facility] [address] [place] [phone] Credit Department Manager: Christen Dempsey MD [address] [place] [address] Acute cystitis with hematuria (Primary Dx) Social [...] Info) Description 06/20/2025 10:45 AM EST Follow-Up [facility] [address] [place] [address] Credit Department Manager: Christen Dempsey MD [address] [place] [address] Scheduled Orders Name Type Priority Associated Diagnoses Orde r Schedule Urine Culture, Routine Microbiology Routine Acute cystitis with hematuria Every 2 Weeks for 24 Occurrences starting 07/24/2024 until 01/20/2025 documented as of this encounter Visit Diagnoses Diagnosis Acute cystitis with hematuria- Primary documented in this encounter Care Teams Latex Foam Worker Relationship Specialty Start Date End Date Andree Lindquist PCP - General Family Medicine 03/26/23 documented as of this encounter
--- OUTSIDE RECORDS SUMMARY | 2024-08-15 12:48 | XMS_ITS | Encounter Summary ---
Author Organization [facility] Address [address] [place] [address] Care Team Providers Care Second Baller Name Role Phone Andree Lindquist MD Primary Care Provider [phone] Encounter Details Date Type Department Care Team (Late st Contact Info) Description 07/25/2024 Lab Requisition [facility] - Main Lab [address] [facility] [place] [address] Mayo Donnelly MD [address] [place] [address] Encounter for other general examination Social History [...] reflex microscopic (07/24/2024 6:55 PM EST) Specific [place] Urine 1.025 1.003 - 1.030 LAB URINALYSIS - AUTOMATED METHOD 07/25/2024 1:24 PM [facility] pH, Urine 5.5 5.0 - 8.0 pH LAB URINALYSIS - AUTOMATED METHOD 07/25/2024 1:24 PM [facility] Leukocytes, Urine Moderate(A) Negative LAB URINALYSIS - AUTOMATED METHOD 07/25/2024 1:24 PM [facility] Nitrite, Urine Positive(A) Negative LAB URINALYSIS - AUTOMATED METHOD 07/25/2024 1:24 PM [facility] Protein, Urine >=300(A) <=Trace mg/dL LAB URINALYSIS - AUTOMATED METHOD 07/25/2024 1:24 PM [facility] Glucose, Urine Negative Negative mg/dL LAB URINALYSIS - AUTOMATED METHOD 07/25/2024 1:24 PM [facility] Ketones, Urine Trace(A) Negative mg/dL LAB URINALYSIS - AUTOMATED METHOD 07/25/2024 1:24 PM [facility] Urobilinogen , Urine 1.0 0.2 - 1.0 mg/dL LAB URINALYSIS - AUTOMATED METHOD 07/25/2024 1:24 PM [facility] Bilirubin, Urine Negative Negative LAB URINALYSIS - AUTOMATED METHOD 07/25/2024 1:24 PM [facility] Blood, Urine Large(A) Negative LAB URINALYSIS - AUTOMATED METHOD 07/25/2024 1:24 PM [facility] RBC, Urine >4,000(H) 0 - 4 /HPF LAB URINALYSIS - AUTOMATED METHOD 07/25/2024 1:24 PM [facility] WBC, Urine 1,000.0(H) 0 - 4 /HPF LAB URINALYSIS - AUTOMATED METHOD 07/25/2024 1:24 PM [facility] Squamous Epithelial, Urine >100(H) 0 - 60 /LPF LAB URINALYSIS - AUTOMATED METHOD 07/25/2024 1:24 PM [facility] Bacteria, Urine Many(A) Negative /HPF LAB URINALYSIS - AUTOMATED METHOD 07/25/2024 1:24 PM [facility] Hyaline Casts, Urine 0.00 0 - 3 /LPF LAB URINALYSIS - AUTOMATED METHOD 07/25/2024 1:24 PM [facility] Urine Urine specimen obtained by clean catch procedure / Unknown Non-blood Collection / Unknown 07/24/2024 6:55 PM EST 07/25/2024 10:05 AM EST Mayo Donnelly MD LAB URINE ORDERABLES Performing Organization Address [facility]/ZIP Co de Phone Number [facility] [address] [place] [address], * Ceron urine culture tube (07/24/2024 6:55 PM EST) Extra Tube Hold for add-ons. 07/25/2024 12:01 PM [facility] Comment:Auto resulted. Urine Urine specimen obtained by clean catch procedure / Unknown Non-blood Collection / Unknown 07/24/2024 6:55 PM EST 07/25/2024 10:05 AM EST Mayo Donnelly MD LAB URINE ORDERABLES Performing Organization Address City/[facility]/ZIP Co de Phone Number [facility] [address] [place] [address], [place] [phone] documented in this encounter Visit Diagnoses Diagnosis Encounter for other general examination documented in this encounter Care Teams Second Baller Relationship Specialty Start Date End Date Andree Lindquist MD PCP - General Internal Medicine 03/19/22 documented as of this encounter
--- OUTSIDE RECORDS SUMMARY | 2024-08-15 12:48 | XMS_ITS | Encounter Summary ---
Author Organization [employer] Address [address] [facility] 7t [place] [address] Care Team Providers Care Emergency Department Rn Name Role Phone Unavailable Primary Care Provider [...] Description 08/23/2024 11:00 AM EST Office Visit [facility] DENTAL [address] [place] [address] Diane Bunrs documented as of this encounter Visit Diagnoses Not on filedocumented in this encounter Care Teams Emergency Department Rn Relationship Specialty Start Date End Date Dr. Meghan Hicks Primary Care Provider 08/17/[address] Andree Lindquist [facility] Primary Care [place], [place] Primary Care Provider 08/17/22 documented as of this encounter
--- OUTSIDE RECORDS SUMMARY | 2024-08-15 12:48 | XMS_ITS | Encounter Summary ---
Author Organization [facility] Address [address] [place] [address] Care Team Providers Care Vp Human Resources Name Role Phone Andree Lindquist MD Primary Care Provider [phone] Encounter Details Date Type Department Care Team (Late st Contact Info) Description 07/26/2024 Lab Requisition [facility] - Main Lab [address] [facility] [place] [address] Mayo Donnelly MD [address] [place] [phone] Encounter for other general examination Social History [...] Escherichia coli(A) YARED 07/29/2024 8:22 AM EST [facility] Culture, Urine 10,000-49,000 CFU/mL Enterococcus faecalis(A) YARED 07/29/2024 8:22 AM EST [facility] Comment: The organism value for this result has been updated. These results have been appended to the previously preliminary verified report. Edited result: Previously reported as Gram Positive Cocci on 07/28/2024 at 1053 EST. Urine Urine specimen obtained by clean catch procedure / Unknown 07/25/2024 6:02 PM EST 07/26/2024 12:32 PM EST [facility] - 07/29/2024 8:22 AM EST [...] MD LAB MICROBIOLOGY - G ENERAL ORDERABLES [facility] [address] [place] [address], [place] [phone] * (ABNORMAL) Urinalysis with reflex microscopic and culture (07/25/2024 6:02 PM EST) Specific [place] Urine 1.025 1.003 - 1.030 LAB URINALYSIS - AUTOMATED METHOD 07/26/2024 12:32 PM [facility] pH, Urine 6.5 5.0 - 8.0 pH LAB URINALYSIS - AUTOMATED METHOD 07/26/2024 12:32 PM [facility] Leukocytes, Urine Small(A) Negative LAB URINALYSIS - AUTOMATED METHOD 07/26/2024 12:32 PM [facility] Nitrite, Urine Positive(A) Negative LAB URINALYSIS - AUTOMATED METHOD 07/26/2024 12:32 PM [facility] Protein, Urine >=300(A) <=Trace mg/dL LAB URINALYSIS - AUTOMATED METHOD 07/26/2024 12:32 PM [facility] Glucose, Urine Negative Negative mg/dL LAB URINALYSIS - AUTOMATED METHOD 07/26/2024 12:32 PM [facility] Ketones, Urine Negative Negative mg/dL LAB URINALYSIS - AUTOMATED METHOD 07/26/2024 12:32 PM [facility] Urobilinogen , Urine 0.2 0.2 - 1.0 mg/dL LAB URINALYSIS - AUTOMATED METHOD 07/26/2024 12:32 PM [facility] Bilirubin, Urine Negative Negative LAB URINALYSIS - AUTOMATED METHOD 07/26/2024 12:32 PM [facility] Blood, Urine Large(A) Negative LAB URINALYSIS - AUTOMATED METHOD 07/26/2024 12:32 PM [facility] RBC, Urine >200 /HPF 07/26/2024 12:32 PM [facility] WBC, Urine 15 /HPF 07/26/2024 12:32 PM [facility] Bacteria, Urine 2+(A) (none) /HPF 07/26/2024 12:32 PM [facility] Urine Urine specimen obtained by clean catch procedure / Unknown 07/25/2024 6:02 PM EST 07/26/2024 11:14 AM EST Mayo Donnelly MD LAB URINE ORDERABLES [facility] [address] [place] [address], [place] [phone] * Ceron urine culture tube (07/25/2024 6:02 PM EST) Extra Tube Hold for add-ons. 07/26/2024 1:01 PM EST [facility] Comment:Auto resulted. Urine Urine specimen obtained by clean catch procedure / Unknown 07/25/2024 6:02 PM EST 07/26/2024 11:14 AM EST Mayo Donnelly MD LAB URINE ORDERABLES [facility] [address] [place] [address], [place] [phone] documented in this encounter Visit Diagnoses Diagnosis Encounter for other general examination documented in this encounter Care Teams Vp Human Resources Relationship Specialty Start Date End Date Andree Lindquist MD PCP - General Internal Medicine 03/19/22 documented as of this encounter
--- OUTSIDE RECORDS SUMMARY | 2024-08-15 12:48 | XMS_ITS | Encounter Summary ---
Author Organization [facility] Address [address] [place] [address] Care Team Providers Care Nurse Ortho Name Role Phone Andree Lindquist MD Primary Care Provider [phone] Encounter Details Date Type Department Care Team (Late st Contact Info) Description 07/21/2024 Lab Requisition [facility] - Main Lab [address] [place] [phone] Mayo Donnelly MD [address] [place] [phone] Encounter for other general examination Social History [...] AM EST) WBC 6.6 4.8 - 10.8 /[facility] LAB HEMETOLOGY METHOD 07/21/2024 8:01 AM EST [facility] RBC 3.90 3.80 - 4.80 M/mcL LAB HEMETOLOGY METHOD 07/21/2024 8:01 AM [facility] Hemoglobin 9.4(L) 11.5 - 16.0 g/dL LAB HEMETOLOGY METHOD 07/21/2024 8:01 AM [facility] Hematocrit 31.3(L) 35.0 - 47.0 % LAB HEMETOLOGY METHOD 07/21/2024 8:01 AM [facility] MCV 80.3 79.0 - 98.0 FL LAB HEMETOLOGY METHOD 07/21/2024 8:01 AM [facility] MCH 24.1(L) 27.0 - 32.0 pcg LAB HEMETOLOGY METHOD 07/21/2024 8:01 AM [facility] MCHC 30.0(L) 32.0 - 37.0 g/dL LAB HEMETOLOGY METHOD 07/21/2024 8:01 AM [facility] RDW 15.4(H) 11.0 - 15.0 % LAB HEMETOLOGY METHOD 07/21/2024 8:01 AM [facility] Platelets 281 130 - 400 K/mcL LAB HEMETOLOGY METHOD 07/21/2024 8:01 AM [facility] MPV 10.5 7.0 - 11.0 FL LAB HEMETOLOGY METHOD 07/21/2024 8:01 AM [facility] NRBC 0.0 <1.0 % LAB HEMETOLOGY METHOD 07/21/2024 8:01 AM [facility] NRBC Absolute 0.00 <0.10 K/mcL LAB HEMETOLOGY METHOD 07/21/2024 8:01 AM [facility] Blood Venous blood specimen / Unknown Venipuncture / Unknown 07/21/2024 5:00 AM EST 07/21/2024 7:36 AM EST Mayo Donnelly MD LAB BLOOD ORDERABLES [facility] [address] [place] [address], * (ABNORMAL) Comprehensive metabolic panel (07/21/2024 5:00 AM EST) Sodium 133 133 - 145 mmol/L LAB CHEMISTRY METHOD 07/21/2024 8:49 AM [facility] Potassium 5.5 3.5 - 5.5 mmol/L LAB CHEMISTRY METHOD 07/21/2024 8:49 AM [facility] Chloride 103 96 - 110 mmol/L LAB CHEMISTRY METHOD 07/21/2024 8:49 AM [facility] CO2 24 21 - 32 mmol/L LAB CHEMISTRY METHOD 07/21/2024 8:49 AM [facility] Anion Gap 6 3 - 11 LAB CHEMISTRY METHOD 07/21/2024 8:49 AM [facility] Glucose 103(H) 70 - 100 mg/dL LAB CHEMISTRY METHOD 07/21/2024 8:49 AM [facility] BUN 54(H) 5 - 25 mg/dL LAB CHEMISTRY METHOD 07/21/2024 8:49 AM [facility] Comment:Results verified by repeat testing Creatinine 1.34(H) 0.50 - 1.10 mg/dL LAB CHEMISTRY METHOD 07/21/2024 8:49 AM [facility] eGFR 41(L) >=60 mL/min/1. 73m2 LAB CHEMISTRY METHOD 07/21/2024 8:49 AM [facility] Comment:Calculation based on the??Chronic Kidney Disease Epidemiology Collaboration (CKD-EPI) equation refit??without adjustment for race. BUN/Creatinine Ratio 40.3 LAB CHEMISTRY METHOD 07/21/2024 8:49 AM EST [facility] Calcium 9.8 8.5 - 10.5 mg/dL LAB CHEMISTRY METHOD 07/21/2024 8:49 AM [facility] AST (SGOT) 19 10 - 42 unit/L LAB CHEMISTRY METHOD 07/21/2024 8:49 AM [facility] ALT (SGPT) 16 10 - 60 unit/L LAB CHEMISTRY METHOD 07/21/2024 8:49 AM [facility] Alkaline Phosphatase 68 42 - 121 unit/L LAB CHEMISTRY METHOD 07/21/2024 8:49 AM [facility] Total Protein 6.8 6.0 - 8.0 g/dL LAB CHEMISTRY METHOD 07/21/2024 8:49 AM [facility] Albumin 3.5 3.2 - 5.0 g/dL LAB CHEMISTRY METHOD 07/21/2024 8:49 AM [facility] Total Bilirubin 0.3 0.0 - 1.4 mg/dL LAB CHEMISTRY METHOD 07/21/2024 8:49 AM [facility] Blood Venous blood specimen / Unknown Venipuncture / Unknown 07/21/2024 5:00 AM EST 07/21/2024 7:36 AM EST Mayo Donnelly MD LAB BLOOD ORDERABLES [facility] [address] [place] [address], documented in this encounter Visit Diagnoses Diagnosis Encounter for other general examination documented in this encounter Care Teams Nurse Ortho Relationship Specialty Start Date End Date Andree Lindquist MD PCP - General Internal Medicine 03/19/22 documented as of this encounter
--- OUTSIDE RECORDS SUMMARY | 2024-08-15 12:48 | XMS_ITS | Encounter Summary ---
Author Organization [facility] Address [address] [place] [address] Care Team Providers Care Bag Presser Name Role Phone Andree Lindquist MD Primary Care Provider [phone] Encounter Details Date Type Department Care Team (Late st Contact Info) Description 07/24/2024 Lab Requisition [facility] - Main Lab [address] [place] [phone] Mayo oDnnelly MD [address] [place] [phone] Encounter for other general examination Social History [...] AM EST) WBC 6.4 4.8 - 10.8 /[facility] LAB HEMETOLOGY METHOD 07/24/2024 11:31 AM EST [facility] RBC 3.90 3.80 - 4.80 M/mcL LAB HEMETOLOGY METHOD 07/24/2024 11:31 AM [facility] Hemoglobin 9.4(L) 11.5 - 16.0 g/dL LAB HEMETOLOGY METHOD 07/24/2024 11:31 AM [facility] Hematocrit 31.7(L) 35.0 - 47.0 % LAB HEMETOLOGY METHOD 07/24/2024 11:31 AM [facility] MCV 81.1 79.0 - 98.0 FL LAB HEMETOLOGY METHOD 07/24/2024 11:31 AM [facility] MCH 24.0(L) 27.0 - 32.0 pcg LAB HEMETOLOGY METHOD 07/24/2024 11:31 AM [facility] MCHC 29.7(L) 32.0 - 37.0 g/dL LAB HEMETOLOGY METHOD 07/24/2024 11:31 AM [facility] RDW 15.5(H) 11.0 - 15.0 % LAB HEMETOLOGY METHOD 07/24/2024 11:31 AM [facility] Platelets 315 130 - 400 K/mcL LAB HEMETOLOGY METHOD 07/24/2024 11:31 AM [facility] MPV 10.5 7.0 - 11.0 FL LAB HEMETOLOGY METHOD 07/24/2024 11:31 AM [facility] NRBC 0.0 <1.0 % LAB HEMETOLOGY METHOD 07/24/2024 11:31 AM [facility] NRBC Absolute 0.00 <0.10 K/mcL LAB HEMETOLOGY METHOD 07/24/2024 11:31 AM [facility] Blood Venous blood specimen / Unknown Venipuncture / Unknown 07/24/2024 5:17 AM EST 07/24/2024 10:19 AM EST Mayo Donnelly MD LAB BLOOD ORDERABLES [facility] [address] [place] [address], * (ABNORMAL) Comprehensive metabolic panel (07/24/2024 5:17 AM EST) Sodium 132(L) 133 - 145 mmol/L LAB CHEMISTRY METHOD 07/24/2024 12:19 PM [facility] Potassium 5.7(H) 3.5 - 5.5 mmol/L LAB CHEMISTRY METHOD 07/24/2024 12:19 PM [facility] Chloride 108 96 - 110 mmol/L LAB CHEMISTRY METHOD 07/24/2024 12:19 PM [facility] CO2 18(L) 21 - 32 mmol/L LAB CHEMISTRY METHOD 07/24/2024 12:19 PM [facility] Anion Gap 6 3 - 11 LAB CHEMISTRY METHOD 07/24/2024 12:19 PM [facility] Glucose 90 70 - 100 mg/dL LAB CHEMISTRY METHOD 07/24/2024 12:19 PM [facility] BUN 74(H) 5 - 25 mg/dL LAB CHEMISTRY METHOD 07/24/2024 12:19 PM [facility] Creatinine 1.54(H) 0.50 - 1.10 mg/dL LAB CHEMISTRY METHOD 07/24/2024 12:19 PM [facility] eGFR 35(L) >=60 mL/min/1. 73m2 LAB CHEMISTRY METHOD 07/24/2024 12:19 PM [facility] Comment:Calculation based on the??Chronic Kidney Disease Epidemiology Collaboration (CKD-EPI) equation refit??without adjustment for race. BUN/Creatinine Ratio 48.1 LAB CHEMISTRY METHOD 07/24/2024 12:19 PM [facility] Calcium 9.3 8.5 - 10.5 mg/dL LAB CHEMISTRY METHOD 07/24/2024 12:19 PM [facility] AST (SGOT) 20 10 - 42 unit/L LAB CHEMISTRY METHOD 07/24/2024 12:19 PM [facility] ALT (SGPT) 15 10 - 60 unit/L LAB CHEMISTRY METHOD 07/24/2024 12:19 PM [facility] Alkaline Phosphatase 72 42 - 121 unit/L LAB CHEMISTRY METHOD 07/24/2024 12:19 PM [facility] Total Protein 6.7 6.0 - 8.0 g/dL LAB CHEMISTRY METHOD 07/24/2024 12:19 PM [facility] Albumin 3.6 3.2 - 5.0 g/dL LAB CHEMISTRY METHOD 07/24/2024 12:19 PM [facility] Total Bilirubin 0.3 0.0 - 1.4 mg/dL LAB CHEMISTRY METHOD 07/24/2024 12:19 PM [facility] Blood Venous blood specimen / Unknown Venipuncture / Unknown 07/24/2024 5:17 AM EST 07/24/2024 10:19 AM EST Mayo Donnelly MD LAB BLOOD ORDERABLES [facility] [address] [place] [address], documented in this encounter Visit Diagnoses Diagnosis Encounter for other general examination documented in this encounter Care Teams Bag Presser Relationship Specialty Start Date End Date Andree Lindquist MD PCP - General Internal Medicine 03/19/22 documented as of this encounter
--- OUTSIDE RECORDS SUMMARY | 2024-08-15 12:48 | XMS_ITS | Clinical Summary ---
Author Organization [address] Address [address] [place] [address] Phone Care Team Providers Care [employer] Bi Developer Name Role Phone Andree Lindquist MD Primary Care Provider [phone] Encounters Date Type Department Care Team Description 08/01/2024 Lab Requisition [facility] Lab [address] [place] [address] Mayo Donnelly MD Encounter for other general examination 07/27/2024 Lab Requisition [facility] Lab [address] [place] [address] Mayo Donnelly MD Encounter for other general examination 07/26/2024 Lab Requisition [facility] Lab [address] [place] [address] Mayo Donnelly MD Encounter for other general examination 07/25/2024 Lab Requisition [facility] Lab [address] [place] [address] Mayo Donnelly MD Encounter for other general examination 07/25/2024 Lab Requisition [facility] Lab [address] [place] [address] Mayo Donnelly MD Encounter for other general examination 07/24/2024 Lab Requisition [facility] Lab [address] [place] [address] Mayo Donnelly MD Encounter for other general examination 07/21/2024 Lab Requisition [facility] [address] [place] [phone] Mayo Donnelly MD Encounter for other general examination 07/16/2024 Lab Requisition [facility] Lab [address] [place] [phone] Mayo Donnelly MD Encounter for other general [...] dr. logan, no intervention, Dr[facility] 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[facility]) 11/28/2012 DX:Diabetes shelton itus type 2 with neurological manifestations ([facility]); COMMENT: PMH of carpal tunnel Type 2 diabetes mellitus wit h cataract ([facility]) 03/25/2015 DX:Type 2 diabetes mellitus with cataract ([facility]); COMMENT: Cataracts Parkinson disease ([facility]) 10/16/2015 DX:P arkinson disease ([facility]) Closed fracture of right dis sona radius [...] (Age mid 70's) thro at cancer, 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 WBC 11.1(H) 4.8 - 10.8 K/[facility] LAB HEMETOLOGY METHOD 08/01/2024 10:45 AM EST [facility] LAB RBC 3.80 3.80 - 4.80 M/[facility] LAB HEMETOLOGY METHOD 08/01/2024 10:45 AM EST [facility] LAB Hemoglobin 9.3(L) 11.5 - 16.0 g/dL LAB HEMETOLOGY METHOD 08/01/2024 10:45 AM [facility] LAB Hematocrit 30.6(L) 35.0 - 47.0 % LAB HEMETOLOGY METHOD 08/01/2024 10:45 AM [facility] LAB MCV 81.4 79.0 - 98.0 FL LAB HEMETOLOGY METHOD 08/01/2024 10:45 AM [facility] LAB MCH 24.7(L) 27.0 - 32.0 pcg LAB HEMETOLOGY METHOD 08/01/2024 10:45 AM [facility] LAB MCHC 30.4(L) 32.0 - 37.0 g/dL LAB HEMETOLOGY METHOD 08/01/2024 10:45 AM [facility] LAB RDW 16.0(H) 11.0 - 15.0 % LAB HEMETOLOGY METHOD 08/01/2024 10:45 AM [facility] LAB Platelets 327 130 - 400 K/mcL LAB HEMETOLOGY METHOD 08/01/2024 10:45 AM [facility] LAB MPV 10.4 7.0 - 11.0 FL LAB HEMETOLOGY METHOD 08/01/2024 10:45 AM [facility] LAB NRBC 0.0 <1.0 % LAB HEMETOLOGY METHOD 08/01/2024 10:45 AM [facility] LAB NRBC Absolute 0.00 <0.10 K/mcL LAB HEMETOLOGY METHOD 08/01/2024 10:45 AM [facility] LAB Blood Venous blood specimen / Unknown Venipuncture / Unknown 08/01/2024 4:56 AM EST 08/01/2024 9:34 AM EST Mayo Donnelly MD LAB BLOOD ORDERABLES [facility] LAB [address] [place] [address], * (ABNORMAL) Comprehensive metabolic panel (08/01/2024 4:56 AM EST) Only the most recent of5 resultswithin the time period is included. Sodium 136 133 - 145 mmol/L LAB CHEMISTRY METHOD 08/01/2024 11:16 AM [facility] LAB Potassium 5.5 3.5 - 5.5 mmol/L LAB CHEMISTRY METHOD 08/01/2024 11:16 AM [facility] LAB Chloride 105 96 - 110 mmol/L LAB CHEMISTRY METHOD 08/01/2024 11:16 AM [facility] LAB CO2 26 21 - 32 mmol/L LAB CHEMISTRY METHOD 08/01/2024 11:16 AM [facility] LAB Anion Gap 5 3 - 11 LAB CHEMISTRY METHOD 08/01/2024 11:16 AM [facility] LAB Glucose 83 70 - 100 mg/dL LAB CHEMISTRY METHOD 08/01/2024 11:16 AM [facility] LAB BUN 44(H) 5 - 25 mg/dL LAB CHEMISTRY METHOD 08/01/2024 11:16 AM [facility] LAB Creatinine 1.15(H) 0.50 - 1.10 mg/dL LAB CHEMISTRY METHOD 08/01/2024 11:16 AM [facility] LAB eGFR 49(L) >=60 mL/min/1. 73m2 LAB CHEMISTRY METHOD 08/01/2024 11:16 AM [facility] LAB Comment:Calculation based on the??Chronic Kidney Disease Epidemiology Collaboration (CKD-EPI) equation refit??without adjustment for race. BUN/Creatinine Ratio 38.3 LAB CHEMISTRY METHOD 08/01/2024 11:16 AM [facility] LAB Calcium 9.3 8.5 - 10.5 mg/dL LAB CHEMISTRY METHOD 08/01/2024 11:16 AM [facility] LAB AST (SGOT) 23 10 - 42 unit/L LAB CHEMISTRY METHOD 08/01/2024 11:16 AM [facility] LAB ALT (SGPT) 17 10 - 60 unit/L LAB CHEMISTRY METHOD 08/01/2024 11:16 AM [facility] LAB Alkaline Phosphatase 67 42 - 121 unit/L LAB CHEMISTRY METHOD 08/01/2024 11:16 AM [facility] LAB Total Protein 6.6 6.0 - 8.0 g/dL LAB CHEMISTRY METHOD 08/01/2024 11:16 AM [facility] LAB Albumin 3.4 3.2 - 5.0 g/dL LAB CHEMISTRY METHOD 08/01/2024 11:16 AM [facility] LAB Total Bilirubin 0.3 0.0 - 1.4 mg/dL LAB CHEMISTRY METHOD 08/01/2024 11:16 AM [facility] LAB Blood Venous blood specimen / Unknown Venipuncture / Unknown 08/01/2024 4:56 AM EST 08/01/2024 9:34 AM EST Mayo Donnelly MD LAB BLOOD ORDERABLES [facility] LAB [address] [place] [address], * (ABNORMAL) Urinalysis with reflex microscopic and culture (07/25/2024 6:02 PM EST) Specific [place] Urine 1.025 1.003 - 1.030 LAB URINALYSIS - AUTOMATED METHOD 07/26/2024 12:32 PM [facility] LAB pH, Urine 6.5 5.0 - 8.0 pH LAB URINALYSIS - AUTOMATED METHOD 07/26/2024 12:32 PM [facility] LAB Leukocytes, Urine Small(A) Negative LAB URINALYSIS - AUTOMATED METHOD 07/26/2024 12:32 PM [facility] LAB Nitrite, Urine Positive(A) Negative LAB URINALYSIS - AUTOMATED METHOD 07/26/2024 12:32 PM [facility] LAB Protein, Urine >=300(A) <=Trace mg/dL LAB URINALYSIS - AUTOMATED METHOD 07/26/2024 12:32 PM [facility] LAB Glucose, Urine Negative Negative mg/dL LAB URINALYSIS - AUTOMATED METHOD 07/26/2024 12:32 PM [facility] LAB Ketones, Urine Negative Negative mg/dL LAB URINALYSIS - AUTOMATED METHOD 07/26/2024 12:32 PM [facility] LAB Urobilinogen , Urine 0.2 0.2 - 1.0 mg/dL LAB URINALYSIS - AUTOMATED METHOD 07/26/2024 12:32 PM [facility] LAB Bilirubin, Urine Negative Negative LAB URINALYSIS - AUTOMATED METHOD 07/26/2024 12:32 PM [facility] LAB Blood, Urine Large(A) Negative LAB URINALYSIS - AUTOMATED METHOD 07/26/2024 12:32 PM [facility] LAB RBC, Urine >200 /HPF 07/26/2024 12:32 PM [facility] WBC, Urine 15 /HPF 07/26/2024 12:32 PM [facility] Bacteria, Urine 2+(A) (none) /HPF 07/26/2024 12:32 PM [facility] Urine Urine specimen obtained by clean catch procedure / Unknown 07/25/2024 6:02 PM EST 07/26/2024 11:14 AM EST Mayo Donnelly MD LAB URINE ORDERABLES [facility] LAB [address] [place] [address], * Ceron urine culture tube (07/25/2024 6:02 PM EST) Only the most recent of2 resultswithin the time period is included. Extra Tube Hold for add-ons. 07/26/2024 1:01 PM EST [facility] LAB Comment:Auto resulted. Urine Urine specimen obtained by clean catch procedure / Unknown 07/25/2024 6:02 PM EST 07/26/2024 11:14 AM EST Mayo Donnelly MD LAB URINE ORDERABLES [facility] LAB [address] [place] [address], * (ABNORMAL) Culture urine (07/25/2024 6:02 PM EST) Culture, Urine >100,000 CFU/mL Escherichia coli(A) YARED 07/29/2024 8:22 AM EST [facility] LAB Culture, Urine 10,000-49,000 CFU/mL Enterococcus faecalis(A) YARED 07/29/2024 8:22 AM EST [facility] LAB Comment: The organism value for this result has been updated. These results have been appended to the previously preliminary verified report. Edited result: Previously reported as Gram Positive Cocci on 07/28/2024 at 1053 EST. Urine Urine specimen obtained by clean catch procedure / Unknown 07/25/2024 6:02 PM EST 07/26/2024 12:32 PM EST Narrative [facility] - 07/29/2024 8:22 AM EST [...] MD LAB MICROBIOLOGY - G ENERAL ORDERABLES [facility] LAB [address] [place] [address], * (ABNORMAL) Basic metabolic panel (07/25/2024 4:31 AM EST) Sodium 135 133 - 145 mmol/L LAB CHEMISTRY METHOD 07/25/2024 11:01 AM [facility] LAB Potassium 5.5 3.5 - 5.5 mmol/L LAB CHEMISTRY METHOD 07/25/2024 11:01 AM [facility] LAB Comment:Hemolysis present Chloride 111(H) 96 - 110 mmol/L LAB CHEMISTRY METHOD 07/25/2024 11:01 AM [facility] LAB CO2 16(L) 21 - 32 mmol/L LAB CHEMISTRY METHOD 07/25/2024 11:01 AM [facility] LAB Anion Gap 8 3 - 11 LAB CHEMISTRY METHOD 07/25/2024 11:01 AM [facility] LAB Glucose 85 70 - 100 mg/dL LAB CHEMISTRY METHOD 07/25/2024 11:01 AM [facility] LAB BUN 66(H) 5 - 25 mg/dL LAB CHEMISTRY METHOD 07/25/2024 11:01 AM [facility] LAB Creatinine 1.20(H) 0.50 - 1.10 mg/dL LAB CHEMISTRY METHOD 07/25/2024 11:01 AM [facility] LAB eGFR 47(L) >=60 mL/min/1. 73m2 LAB CHEMISTRY METHOD 07/25/2024 11:01 AM [facility] LAB Comment:Calculation based on the??Chronic Kidney Disease Epidemiology Collaboration (CKD-EPI) equation refit??without adjustment for race. BUN/Creatinine Ratio 55.0 LAB CHEMISTRY METHOD 07/25/2024 11:01 AM [facility] LAB Calcium 9.2 8.5 - 10.5 mg/dL LAB CHEMISTRY METHOD 07/25/2024 11:01 AM [facility] LAB Blood Venous blood specimen / Unknown Venipuncture / Unknown 07/25/2024 4:31 AM EST 07/25/2024 9:59 AM EST Mayo Donnelly MD LAB BLOOD ORDERABLES [facility] LAB [address] [place] [address], * (ABNORMAL) Urinalysis with reflex microscopic (07/24/2024 6:55 PM EST) Specific [place] Urine 1.025 1.003 - 1.030 LAB URINALYSIS - AUTOMATED METHOD 07/25/2024 1:24 PM [facility] LAB pH, Urine 5.5 5.0 - 8.0 pH LAB URINALYSIS - AUTOMATED METHOD 07/25/2024 1:24 PM [facility] LAB Leukocytes, Urine Moderate(A) Negative LAB URINALYSIS - AUTOMATED METHOD 07/25/2024 1:24 PM [facility] LAB Nitrite, Urine Positive(A) Negative LAB URINALYSIS - AUTOMATED METHOD 07/25/2024 1:24 PM [facility] LAB Protein, Urine >=300(A) <=Trace mg/dL LAB URINALYSIS - AUTOMATED METHOD 07/25/2024 1:24 PM [facility] LAB Glucose, Urine Negative Negative mg/dL LAB URINALYSIS - AUTOMATED METHOD 07/25/2024 1:24 PM [facility] LAB Ketones, Urine Trace(A) Negative mg/dL LAB URINALYSIS - AUTOMATED METHOD 07/25/2024 1:24 PM [facility] LAB Urobilinogen , Urine 1.0 0.2 - 1.0 mg/dL LAB URINALYSIS - AUTOMATED METHOD 07/25/2024 1:24 PM [facility] LAB Bilirubin, Urine Negative Negative LAB URINALYSIS - AUTOMATED METHOD 07/25/2024 1:24 PM [facility] LAB Blood, Urine Large(A) Negative LAB URINALYSIS - AUTOMATED METHOD 07/25/2024 1:24 PM [facility] LAB RBC, Urine >4,000(H) 0 - 4 /HPF LAB URINALYSIS - AUTOMATED METHOD 07/25/2024 1:24 PM [facility] LAB WBC, Urine 1,000.0(H) 0 - 4 /HPF LAB URINALYSIS - AUTOMATED METHOD 07/25/2024 1:24 PM [facility] Squamous Epithelial, Urine >100(H) 0 - 60 /LPF LAB URINALYSIS - AUTOMATED METHOD 07/25/2024 1:24 PM [facility] Bacteria, Urine Many(A) Negative /HPF LAB URINALYSIS - AUTOMATED METHOD 07/25/2024 1:24 PM [facility] LAB Hyaline Casts, Urine 0.00 0 - 3 /LPF LAB URINALYSIS - AUTOMATED METHOD 07/25/2024 1:24 PM [facility] LAB Urine Urine specimen obtained by clean catch procedure / Unknown Non-blood Collection / Unknown 07/24/2024 6:55 PM EST 07/25/2024 10:05 AM EST Mayo Donnelly MD LAB URINE ORDERABLES [facility] LAB [address] [place] [address], * (ABNORMAL) CBC auto differential (07/16/2024 5:30 AM EST) WBC 5.8 4.8 - 10.8 K/mcL LAB HEMETOLOGY METHOD 07/16/2024 10:35 AM [facility] LAB RBC 3.80 3.80 - 4.80 M/mcL LAB HEMETOLOGY METHOD 07/16/2024 10:35 AM [facility] LAB Hemoglobin 9.2(L) 11.5 - 16.0 g/dL LAB HEMETOLOGY METHOD 07/16/2024 10:35 AM [facility] LAB Hematocrit 30.8(L) 35.0 - 47.0 % LAB HEMETOLOGY METHOD 07/16/2024 10:35 AM [facility] LAB MCV 80.8 79.0 - 98.0 FL LAB HEMETOLOGY METHOD 07/16/2024 10:35 AM [facility] LAB MCH 24.1(L) 27.0 - 32.0 pcg LAB HEMETOLOGY METHOD 07/16/2024 10:35 AM [facility] LAB MCHC 29.9(L) 32.0 - 37.0 g/dL LAB HEMETOLOGY METHOD 07/16/2024 10:35 AM [facility] LAB RDW 14.9 11.0 - 15.0 % LAB HEMETOLOGY METHOD 07/16/2024 10:35 AM [facility] LAB Platelets 247 130 - 400 K/mcL LAB HEMETOLOGY METHOD 07/16/2024 10:35 AM [facility] LAB MPV 10.8 7.0 - 11.0 FL LAB HEMETOLOGY METHOD 07/16/2024 10:35 AM [facility] LAB NRBC 0.0 <1.0 % LAB HEMETOLOGY METHOD 07/16/2024 10:35 AM [facility] LAB NRBC Absolute 0.00 <0.10 K/mcL LAB HEMETOLOGY METHOD 07/16/2024 10:35 AM [facility] LAB Neutrophils Relative 69.6 % LAB HEMETOLOGY METHOD 07/16/2024 10:35 AM [facility] LAB Lymphocytes Relative 16.7 % LAB HEMETOLOGY METHOD 07/16/2024 10:35 AM [facility] LAB Monocytes Relative 10.1 % LAB HEMETOLOGY METHOD 07/16/2024 10:35 AM [facility] LAB Eosinophils Relative 3.1 % LAB HEMETOLOGY METHOD 07/16/2024 10:35 AM [facility] LAB Basophils Relative 0.2 % LAB HEMETOLOGY METHOD 07/16/2024 10:35 AM [facility] LAB Immature Granulocytes Relative 0.3 % LAB HEMETOLOGY METHOD 07/16/2024 10:35 AM [facility] LAB Neutrophils Absolute 4.01 1.50 - 7.00 K/mcL LAB HEMETOLOGY METHOD 07/16/2024 10:35 AM [facility] LAB Lymphocytes Absolute 0.96(L) 1.00 - 5.00 K/mcL LAB HEMETOLOGY METHOD 07/16/2024 10:35 AM [facility] LAB Monocytes Absolute 0.58 0.20 - 1.00 K/mcL LAB HEMETOLOGY METHOD 07/16/2024 10:35 AM [facility] LAB Eosinophils Absolute 0.18 0.00 - 0.50 K/mcL LAB HEMETOLOGY METHOD 07/16/2024 10:35 AM EST [facility] LAB Basophils Absolute 0.01 0.00 - 0.20 K/[facility] LAB HEMETOLOGY METHOD 07/16/2024 10:35 AM EST [facility] LAB Immature Granulocytes Absolute 0.02 0.00 - 0.03 K/[facility] LAB HEMETOLOGY METHOD 07/16/2024 10:35 AM EST [facility] LAB Blood Venous blood specimen / Unknown Venipuncture / Unknown 07/16/2024 5:30 AM EST 07/16/2024 9:10 AM EST Mayo Donnelly MD LAB BLOOD ORDERABLES Performing Organization Address City/[facility]/ZIP Co de Phone Number [facility] LAB [address] [place] [address], * (ABNORMAL) Magnesium (07/16/2024 5:30 AM EST) Magnesium 1.6(L) 1.9 - 2.6 mg/dL LAB CHEMISTRY METHOD 07/16/2024 10:49 AM EST [facility] LAB Blood Venous blood specimen / Unknown Venipuncture / Unknown 07/16/2024 5:30 AM EST 07/16/2024 9:10 AM EST Mayo Donnelly MD LAB BLOOD ORDERABLES [facility] [address] [place] [address], [place] [phone] * SCREENING MAMMOGRAPHY BI 2-[employer] [...] Documents on File Type Date Recorded Patient As[employer] Expl anation Health Care Decision (hx) 07/13/2012 AD RAYGOZA DIRECTIVE Health Care Decision (hx) 07/13/2012 AD RAYGOZA DIRECTIVE Health Care Decision (hx) 07/13/2012 AD RAYGOZA DIRECTIVE Health Care Decision (hx) 07/13/2012 AD RAYGOZA DIRECTIVE Care Teams [employer] Bi Developer Relationship Specialty Start Date End Date Andree Lindquist MD PCP - General Internal Medicine 03/19/22
--- OUTSIDE RECORDS SUMMARY | 2024-08-15 12:48 | XMS_ITS | Encounter Summary ---
Author Organization [facility] Address [address] [place] [address] Care Team Providers Care Food Counter Worker Name Role Phone Andere Lindquist MD Primary Care Provider [phone] Encounter Details Date Type Department Care Team (Late st Contact Info) Description 07/16/2024 Lab Requisition [facility] Lab [address] [facility] [place] [address] Mayo Donnelly MD [address] [place] [phone] Encounter for other general examination Social History [...] (ABNORMAL) Magnesium (07/16/2024 5:30 AM EST) Pathologist [facility] Magnesium 1.6(L) 1.9 - 2.6 mg/dL LAB CHEMISTRY METHOD 07/16/2024 10:49 AM [facility] LAB Blood Venous blood specimen / Unknown Venipuncture / Unknown 07/16/2024 5:30 AM EST 07/16/2024 9:10 AM EST Mayo Donnelly MD LAB BLOOD ORDERABLES [facility] [address] [place] [address], * (ABNORMAL) CBC auto differential (07/16/2024 5:30 AM EST) [facility] WBC 5.8 4.8 - 10.8 K/mcL LAB HEMETOLOGY METHOD 07/16/2024 10:35 AM [facility] LAB RBC 3.80 3.80 - 4.80 M/[facility] LAB HEMETOLOGY METHOD 07/16/2024 10:35 AM [facility] LAB Hemoglobin 9.2(L) 11.5 - 16.0 g/dL LAB HEMETOLOGY METHOD 07/16/2024 10:35 AM [facility] LAB Hematocrit 30.8(L) 35.0 - 47.0 % LAB HEMETOLOGY METHOD 07/16/2024 10:35 AM [facility] LAB MCV 80.8 79.0 - 98.0 FL LAB HEMETOLOGY METHOD 07/16/2024 10:35 AM [facility] LAB MCH 24.1(L) 27.0 - 32.0 pcg LAB HEMETOLOGY METHOD 07/16/2024 10:35 AM [facility] LAB MCHC 29.9(L) 32.0 - 37.0 g/dL LAB HEMETOLOGY METHOD 07/16/2024 10:35 AM [facility] LAB RDW 14.9 11.0 - 15.0 % LAB HEMETOLOGY METHOD 07/16/2024 10:35 AM [facility] LAB Platelets 247 130 - 400 K/mcL LAB HEMETOLOGY METHOD 07/16/2024 10:35 AM [facility] LAB MPV 10.8 7.0 - 11.0 FL LAB HEMETOLOGY METHOD 07/16/2024 10:35 AM [facility] LAB NRBC 0.0 <1.0 % LAB HEMETOLOGY METHOD 07/16/2024 10:35 AM [facility] LAB NRBC Absolute 0.00 <0.10 K/mcL LAB HEMETOLOGY METHOD 07/16/2024 10:35 AM [facility] Neutrophils Relative 69.6 % LAB HEMETOLOGY METHOD 07/16/2024 10:35 AM [facility] Lymphocytes Relative 16.7 % LAB HEMETOLOGY METHOD 07/16/2024 10:35 AM [facility] Monocytes Relative 10.1 % LAB HEMETOLOGY METHOD 07/16/2024 10:35 AM [facility] Eosinophils Relative 3.1 % LAB HEMETOLOGY METHOD 07/16/2024 10:35 AM [facility] Basophils Relative 0.2 % LAB HEMETOLOGY METHOD 07/16/2024 10:35 AM [facility] Immature Granulocytes Relative 0.3 % LAB HEMETOLOGY METHOD 07/16/2024 10:35 AM [facility] Neutrophils Absolute 4.01 1.50 - 7.00 K/mcL LAB HEMETOLOGY METHOD 07/16/2024 10:35 AM [facility] Lymphocytes Absolute 0.96(L) 1.00 - 5.00 K/mcL LAB HEMETOLOGY METHOD 07/16/2024 10:35 AM [facility] Monocytes Absolute 0.58 0.20 - 1.00 K/[facility] LAB HEMETOLOGY METHOD 07/16/2024 10:[address] [facility] Eosinophils Absolute 0.18 0.00 - 0.50 K/[facility] LAB HEMETOLOGY METHOD 07/16/2024 10:[address] [facility] Basophils Absolute 0.01 0.00 - 0.20 K/[facility] LAB HEMETOLOGY METHOD 07/16/2024 10:35 AM [facility] Immature Granulocytes Absolute 0.02 0.00 - 0.03 K/[facility] LAB HEMETOLOGY METHOD 07/16/2024 10:35 AM [facility] LAB Blood Venous blood specimen / Unknown Venipuncture / Unknown 07/16/2024 5:30 AM EST 07/16/2024 9:10 AM EST Mayo Donnelly MD LAB BLOOD ORDERABLES [facility] [address] [place] [address], * (ABNORMAL) Comprehensive metabolic panel (07/16/2024 5:30 AM EST) Sodium 133 133 - 145 mmol/L LAB CHEMISTRY METHOD 07/16/2024 10:49 AM [facility] Potassium 4.6 3.5 - 5.5 mmol/L LAB CHEMISTRY METHOD 07/16/2024 10:49 AM [facility] Chloride 103 96 - 110 mmol/L LAB CHEMISTRY METHOD 07/16/2024 10:49 AM [facility] CO2 24 21 - 32 mmol/L LAB CHEMISTRY METHOD 07/16/2024 10:49 AM [facility] Anion Gap 6 3 - 11 LAB CHEMISTRY METHOD 07/16/2024 10:49 AM [facility] Glucose 125(H) 70 - 100 mg/dL LAB CHEMISTRY METHOD 07/16/2024 10:49 AM [facility] BUN 33(H) 5 - 25 mg/dL LAB CHEMISTRY METHOD 07/16/2024 10:49 AM [facility] Creatinine 1.13(H) 0.50 - 1.10 mg/dL LAB CHEMISTRY METHOD 07/16/2024 10:49 AM [facility] eGFR 51(L) >=60 mL/min/1. 73m2 LAB CHEMISTRY METHOD 07/16/2024 10:49 AM [facility] LAB Comment:Calculation based on the??Chronic Kidney Disease Epidemiology Collaboration (CKD-EPI) equation refit??without adjustment for race. BUN/Creatinine Ratio 29.2 LAB CHEMISTRY METHOD 07/16/2024 10:49 AM [facility] Calcium 9.0 8.5 - 10.5 mg/dL LAB CHEMISTRY METHOD 07/16/2024 10:49 AM [facility] AST (SGOT) 18 10 - 42 unit/L LAB CHEMISTRY METHOD 07/16/2024 10:49 AM [facility] ALT (SGPT) 8(L) 10 - 60 unit/L LAB CHEMISTRY METHOD 07/16/2024 10:49 AM [facility] Alkaline Phosphatase 61 42 - 121 unit/L LAB CHEMISTRY METHOD 07/16/2024 10:49 AM [facility] Total Protein 6.3 6.0 - 8.0 g/dL LAB CHEMISTRY METHOD 07/16/2024 10:49 AM [facility] Albumin 3.4 3.2 - 5.0 g/dL LAB CHEMISTRY METHOD 07/16/2024 10:49 AM [facility] Total Bilirubin 0.5 0.0 - 1.4 mg/dL LAB CHEMISTRY METHOD 07/16/2024 10:49 AM [facility] Blood Venous blood specimen / Unknown Venipuncture / Unknown 07/16/2024 5:30 AM EST 07/16/2024 9:10 AM EST Mayo Donnelly MD LAB BLOOD ORDERABLES Performing Organization Address City/State/[facility] Co de Phone Number [facility] [address] [place] [address], documented in this encounter Visit Diagnoses Diagnosis Encounter for other general examination documented in this encounter 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
--- OUTSIDE RECORDS SUMMARY | 2024-08-15 12:48 | XMS_ITS | Encounter Summary ---
Author Organization [facility] Address [address] [place] [address] Care Team Providers Care Head Custodian Name Role Phone Andree Lindquist Primary Care Provider [phone] Encounter Details Date Type Department Care Team (Late st Contact Info) Description 07/22/2023 Orders Only [facility] Interventional Radiology [address] [place], [place] [phone] Guerline Vaughn MD [address] [place] [address] Social History Tobacco Use Types Packs/Day Years [...] Info) Description 06/20/2025 10:45 AM EST Follow-Up [facility]rology Clinic [address] [place] [address] Head Shipper: Christen Dempsey MD [address] [place] [address] [phone] documented as of this encounter Visit Diagnoses Not on filedocumented in this encounter Care Teams Head Custodian Relationship Specialty Start Date End Date Andree Lindquist PCP - General Family Medicine 03/26/23 documented as of this encounter
--- OUTSIDE RECORDS SUMMARY | 2024-08-15 12:48 | XMS_ITS | Encounter Summary ---
Author Organization [employer] Address [address] [facility] 7t [place] [address] Care Team Providers Care Oil Heater Installer Name Role Phone Unavailable Primary Care Provider [...] Description 08/23/2024 11:00 AM EST Office Visit [facility] DENTAL [address] [place] [address] Diane Burns documented as of this encounter Visit Diagnoses Not on filedocumented in this encounter Care Teams Oil Heater Installer Relationship Specialty Start Date End Date Dr. Meghan Hicks Primary Care Provider 08/17/[address] Andree Lindquist [facility] Primary Care [place], [place] Primary Care Provider 08/17/22 documented as of this encounter
--- OUTSIDE RECORDS SUMMARY | 2024-08-15 12:48 | XMS_ITS | Referral Summary ---
Author Organization [facility] Address [address] [place] [address] Care Team Providers Care Licensed Home Inspector Name Role Phone KtAndree Pretty Primary Care Provider [phone] Encounters Date Type Department Care Team Description 07/24/2024 Orders Only [facility] Urology Clinic [address] [place] [address] Financial Services Consultant: Christen Dempsey MD Acute cystitis with hematuria (Primary Dx) 06/14/2024 8:30 AM EST Follow-Up [facility] [address] [place] [address] Financial Services Consultant: Christen Dempsey MD Gross hematuria (Primary Dx); [...] Info) Description 06/20/2025 10:45 AM EST Follow-Up [facility] [address] [place] [address] Financial Services Consultant: Christen Dempsey MD [address] [place] [address] Procedures * Due to [facility] law, this organization might not be sharing negative HIV tests. Procedure Name Priority Date/Time Associated Diagnosis Comments BASIC METABOLIC PANEL Routine 08/18/2023 4:45 AM EST from Last 3 Months or Most Recently Relevant to Health Maintenance Results * Due to [facility] law, this organization might not be sharing negative HIV tests. * (ABNORMAL) Basic Metabolic Panel (08/18/2023 4:45 AM EST) NA 137 135 - 145 mmol/L 08/18/2023 6:37 AM EST [facility] K 3.9 3.5 - 5.3 mmol/L 08/18/2023 6:37 AM EST [facility] Cl 106 97 - 110 mmol/L 08/18/2023 6:37 AM EST [facility] CO2 23(L) 24 - 32 mmol/L 08/18/2023 6:37 AM EST [facility] BUN 37(H) 7 - 23 mg/dL 08/18/2023 6:37 AM EST [facility] Creatinine 0.84 0.50 - 1.20 mg/dL 08/18/2023 6:37 AM EST [facility] Glucose 66(L) 70 - 99 mg/dL 08/18/2023 6:37 AM EST [facility] Calcium 8.3(L) 8.7 - 10.7 mg/dL 08/18/2023 6:37 AM EST [facility] Anion Gap 8 5 - 15 08/18/2023 6:37 AM EST [facility] eGFR 73 >=60 mL/min/1. 73m2 08/18/2023 6:37 AM EST [facility] Comment:The estimated glomer [...] MD LAB BLOOD ORDERABLES Final Re sult [facility] [address] [place] [address], from Last 3 Months or Most Recently Relevant to Health Maintenance Insurance [facility] MEDICARE Advance Directives * Full Code (Latest Code Status on File) Date Activated Date Inactivated Comments 11/23/2023 8:48 AM 11/23/2023 1:53 PM * Full Code Date Activated Date Inactivated Comments 08/17/2023 10:08 AM 08/18/2023 4:16 PM Healthcare Agents on File Name Relationship Healthcare Agent Relationship Communication Martita Pope Daughter Health Care Agent [email or web address] Care Teams Licensed Home Inspector Relationship Specialty Start Date End Date Andree Lindquist PCP - General Family Medicine 03/26/23
--- OUTSIDE RECORDS SUMMARY | 2024-08-15 12:49 | XMS_ITS | Clinical Summary ---
Author Organization [facility] Address [address] [place] [address] Care Team Providers Care Mechanical Maintenance Supervisor Name Role Phone KtAndree Pretty Primary Care Provider [phone] Allergies Active Allergy Reactions Criticality Noted Date [...] Department Care Team Description 07/24/2024 Orders Only [facility] Urology Clinic [address] [place] [address] Meterman: Christen Dempsey MD Acute cystitis with hematuria (Primary Dx) 06/14/2024 8:30 AM EST Follow-Up [facility] [address] [place] [address] Meterman: Christen Dempsey MD Gross hematuria (Primary Dx); [...] Info) Description 06/20/2025 10:45 AM EST Follow-Up [facility] [address] [place] [address] Meterman: Paulette Lopes, Christen Dodd MD [address] [place] [address] Health Maintenance Due Date Last Done Comments [...] Discontinued Sigmoidoscopy Discontinued Procedures * Due to [place] [employer] law, this organization might not be sharing negative HIV tests. Procedure Name Priority Date/Time Associated Diagnosis Comments BASIC METABOLIC PANEL Routine 08/18/2023 4:45 AM EST from Last 3 Months or Most Recently Relevant to Health Maintenance Results * Due to [place] law, this organization might not be sharing negative HIV tests. * (ABNORMAL) Basic Metabolic Panel (08/18/2023 4:45 AM EST) NA 137 135 - 145 mmol/L 08/18/2023 6:37 AM EST [facility] K 3.9 3.5 - 5.3 mmol/L 08/18/2023 6:37 AM EST [facility] Cl 106 97 - 110 mmol/L 08/18/2023 6:37 AM EST [facility] CO2 23(L) 24 - 32 mmol/L 08/18/2023 6:37 AM EST [facility] BUN 37(H) 7 - 23 mg/dL 08/18/2023 6:37 AM EST [facility] Creatinine 0.84 0.50 - 1.20 mg/dL 08/18/2023 6:37 AM EST [facility] Glucose 66(L) 70 - 99 mg/dL 08/18/2023 6:37 AM EST [facility] Calcium 8.3(L) 8.7 - 10.7 mg/dL 08/18/2023 6:37 AM EST [facility] Anion Gap 8 5 - 15 08/18/2023 6:37 AM EST [facility] eGFR 73 >=60 mL/min/1. 73m2 08/18/2023 6:37 AM EST [facility] Comment:The estimated glomer ular [...] MD LAB BLOOD ORDERABLES Final Re sult [facility] [address] [place] [address], from Last 3 Months or Most Recently Relevant to Health Maintenance Insurance [facility] SUPP MEDICARE Advance Directives * Full Code (Latest Code Status on File) Date Activated Date Inactivated Comments 11/23/2023 8:48 AM 11/23/2023 1:53 PM * Full Code Date Activated Date Inactivated Comments 08/17/2023 10:08 AM 08/18/2023 4:16 PM Healthcare Agents on File Name Relationship Healthcare Agent Relationship Communication Martita Pope Daughter Health Care Agent [email or web address] Care Teams Mechanical Maintenance Supervisor Relationship Specialty Start Date End Date Andree Lindquist PCP - General Family Medicine 03/26/23
[2024-08-15 14:16] LABS: MANUAL DIFF FLAG NO
[2024-08-15 14:19] LABS: Basophils Percent Auto 0.2 % (0-2); Eosinophils Absolute Auto 0.2 X10*3/uL (0.0-0.4); Eosinophils Percent Auto 3.2 % (0-4); Hematocrit 28.9 % (37.0-47.0); Hemoglobin 8.9 g/dl (12.0-16.0); Imm Gran Abs Auto 0.01 X10*3/uL (0.00-0.03); Imm Gran Pct Auto 0.2 % (0.0-0.4); Lymphocytes Absolute Auto 1.1 X10*3/uL (1.2-4.9); Mean Corpuscular HGB Conc 30.8 g/dl (31.0-35.0); Mean Corpuscular Hemoglobin 24.1 pg (27.0-33.0); Mean Corpuscular Volume 78.3 fL (80.0-98.0); Mean Platelet Volume 10.4 fL (9.4-12.3); Monocytes Absolute Auto 0.5 X10*3/uL (0.1-1.2); Monocytes Percent Auto 8.9 % (2-11); Neutrophils Absolute Auto 3.8 x10*3/uL (2.0-8.3); Neutrophils Percent Auto 67.5 % (45-73); Platelet Count 265 X10*3/uL (160-400); Red Blood Count 3.69 X10*6/uL (4.20-5.50); Red Cell Distribution Width 16.4 % (11.0-16.0); White Blood Count 5.6 X10*3/uL (4.8-10.8)
[2024-08-15 14:28] LABS: Alanine Aminotransferase 12 U/L (0-31); Albumin Level 4.1 g/dL (3.5-5.0); Alkaline Phosphatase 59 U/L (39-117); Anion Gap 18 (12-20); Aspartate Amino Transferase 28 U/L (5-31); Bilirubin Total 0.3 mg/dL (0.0-1.0); Blood Urea Nitrogen 37 mg/dL (9-16); Calcium 9.7 mg/dL (8.4-10.2); Carbon Dioxide 22 mmol/L (22-29); Chloride 105 mmol/L (96-108); Estimated Glomerular Filt Rate 52; Glucose Random 135 mg/dL (60-115); Iron 25 mcg/dL (30-160); Magnesium 1.7 mg/dL (1.6-2.6); Percent Iron Saturation 6 % (15-50); Potassium 4.5 mmol/L (3.3-5.1); Sodium 140 mmol/L (135-145); Total Iron Binding Capacity 448 mcg/dL (228-428); Total Protein 7.3 g/dL (6.5-8.0); Unsaturated Iron Binding 423 ug/dL
== END 2024-08-15 11:57 | disposition home or self-care (01) ==
LOC: HO.WFDLDS 11:56
PROVIDERS: Visit Provider Internal Medicine
DX: Z09 Encounter for follow-up examination after completed treatment for conditions other than malignant neoplasm (principal); Z86.73 Personal history of transient ischemic attack (TIA), and cerebral infarction without residual deficits; Z95.2 Presence of prosthetic heart valve; E11.42 Type 2 diabetes mellitus with diabetic polyneuropathy; I10 Essential (primary) hypertension; I35.0 Nonrheumatic aortic (valve) stenosis
CPT/HCPCS: 36415; 80053; 83540; 83735; 85025; 96127; 99212

== ENCOUNTER 2024-08-16 18:30 | Outpatient (REF) | payer MEDICARE, OTHER, SELFPAY ==
--- OUTSIDE RECORDS SUMMARY | 2024-08-16 18:30 | XMS_ITS | Encounter Summary ---
Author Organization [facility] Address [address] [place] [address] Care Team Providers Care Host Coordinator Name Role Phone Andree Lindquist Primary Care Provider [phone] Encounter Details Date Type Department Care Team (Late st Contact Info) Description 07/22/2023 Orders Only [facility] Interventional Radiology [address] [place], [place] [phone] Guerline Vaughn MD [address] [place] [address] Social History Tobacco Use Types Packs/Day Years [...] Info) Description 06/20/2025 10:45 AM EST Follow-Up [facility] Urology Clinic [address] [place] [address] Automotive Engineering Teacher: Christen Dempsey MD [address] [place] [address] [phone] documented as of this encounter Visit Diagnoses Not on filedocumented in this encounter Care Teams Host Coordinator Relationship Specialty Start Date End Date Andree Lindquist PCP - General Family Medicine 03/26/23 documented as of this encounter
--- OUTSIDE RECORDS SUMMARY | 2024-08-16 18:30 | XMS_ITS | Encounter Summary ---
Author Organization [facility] Address [address] [place] [address] Care Team Providers Care Airline Operations Agent Name Role Phone Andree Lindquist MD Primary Care Provider [phone] Encounter Details Date Type Department Care Team (Late st Contact Info) Description 07/26/2024 Lab Requisition [facility] - Main Lab [address] [facility] [place] [address] Mayo Donnelly MD [address] [place] [address] Encounter for other general examination Social History [...] Escherichia coli(A) YARED 07/29/2024 8:22 AM EST [facility] Culture, Urine 10,000-49,000 CFU/mL Enterococcus faecalis(A) YARED 07/29/2024 8:22 AM EST [facility] Comment: The organism value for this result has been updated. These results have been appended to the previously preliminary verified report. Edited result: Previously reported as Gram Positive Cocci on 07/28/2024 at 1053 EST. Urine Urine specimen obtained by clean catch procedure / Unknown 07/25/2024 6:02 PM EST 07/26/2024 12:32 PM EST [facility] - 07/29/2024 8:22 AM EST Additional [...] MD LAB MICROBIOLOGY - G ENERAL ORDERABLES [facility] [address] [place] [address], [place] [phone] * (ABNORMAL) Urinalysis with reflex microscopic and culture (07/25/2024 6:02 PM EST) Specific [place] Urine 1.025 1.003 - 1.030 LAB URINALYSIS [...] EST Mayo Donnelly MD LAB URINE ORDERABLES [facility] [address] [place] [address], [place] [phone] * Ceron urine culture tube (07/25/2024 6:02 PM EST) Extra Tube Hold for add-ons. 07/26/2024 1:01 PM EST [facility] Comment:Auto resulted. Urine Urine specimen obtained by clean catch procedure / Unknown 07/25/2024 6:02 PM EST 07/26/2024 11:14 AM EST Mayo Donnelly MD LAB URINE ORDERABLES [facility] [address] [place] [address], [place] [phone] documented in this encounter Visit Diagnoses Diagnosis Encounter for other general examination documented in this encounter Care Teams Airline Operations Agent Relationship Specialty Start Date End Date Andree Lindquist MD PCP - General Internal Medicine 03/19/22 documented as of this encounter
--- OUTSIDE RECORDS SUMMARY | 2024-08-16 18:30 | XMS_ITS | Encounter Summary ---
Author Organization [facility] Address [address] [place] [address] Care Team Providers Care Short Haul Driver Name Role Phone Andree Lindquist Primary Care Provider [phone] Encounter Details Date Type Department Care Team (Late Contact Info) Description 07/24/2024 Orders Only [facility] Urology Clinic [address] [place] [address] Medical Biller/Coder: Christen Dempsey MD [address] [place] [address] Acute cystitis with hematuria (Primary Dx) Social [...] Info) Description 06/20/2025 10:45 AM EST Follow-Up [facility] Urology Clinic [address] [place] [address] Medical Biller/Coder: Christen Dempsey MD [address] [place] [address] Scheduled Orders Name Type Priority Associated Diagnoses Orde r Schedule Urine Culture, Routine Microbiology Routine Acute cystitis with hematuria Every 2 Weeks for 24 Occurrences starting 07/24/2024 until 01/20/2025 documented as of this encounter Visit Diagnoses Diagnosis Acute cystitis with hematuria- Primary documented in this encounter Care Teams Short Haul Driver Relationship Specialty Start Date End Date Andree Lindquist PCP - General Family Medicine 03/26/23 documented as of this encounter
--- OUTSIDE RECORDS SUMMARY | 2024-08-16 18:30 | XMS_ITS | Clinical Summary ---
Author Organization [facility] Address [address] [place] [address] Care Team Providers Care Process Control Board Operator Name Role Phone KtAndree Pretty Primary Care Provider [phone] Allergies Active Allergy Reactions Criticality Noted Date [...] Department Care Team Description 07/24/2024 Orders Only [facility] Urology Clinic [address] [place] [address] Emergency Medical Tech: Christen Dempsey MD Acute cystitis with hematuria (Primary Dx) 06/14/2024 8:30 AM EST Follow-Up [facility]rology Clinic [address] [place] [address] Emergency Medical Tech: Christen Dempsey MD Gross hematuria (Primary Dx); [...] Info) Description 06/20/2025 10:45 AM EST Follow-Up [facility] U[facility] Clinic [address] [place] [address] Emergency Medical Tech: Paulette Lopes, Christen Dodd MD [address] [place] [address] Health Maintenance Due Date Last Done Comments [...] Discontinued Sigmoidoscopy Discontinued Procedures * Due to [place] [employer] law, this organization might not be sharing negative HIV tests. Procedure Name Priority Date/Time Associated Diagnosis Comments BASIC METABOLIC PANEL Routine 08/18/2023 4:45 AM EST from Last 3 Months or Most Recently Relevant to Health Maintenance Results * Due to [place] law, this organization might not be sharing negative HIV tests. * (ABNORMAL) Basic Metabolic Panel (08/18/2023 4:45 AM EST) NA 137 135 - 145 mmol/L 08/18/2023 6:37 AM EST [facility] K 3.9 3.5 - 5.3 mmol/L 08/18/2023 6:37 AM EST [facility] Cl 106 97 - 110 mmol/L 08/18/2023 6:37 AM EST [facility] CO2 23(L) 24 - 32 mmol/L 08/18/2023 6:37 AM EST [facility] BUN 37(H) 7 - 23 mg/dL 08/18/2023 6:37 AM EST [facility] Creatinine 0.84 0.50 - 1.20 mg/dL 08/18/2023 6:37 AM EST [facility] Glucose 66(L) 70 - 99 mg/dL 08/18/2023 6:37 AM EST [facility] Calcium 8.3(L) 8.7 - 10.7 mg/dL 08/18/2023 6:37 AM EST [facility] Anion Gap 8 5 - 15 08/18/2023 6:37 AM EST [facility] eGFR 73 >=60 mL/min/1. 73m2 08/18/2023 6:37 AM EST [facility] Comment:The estimated glomer [...] MD LAB BLOOD ORDERABLES Final Re sult [facility] [address] [place] [address], from Last 3 Months or Most Recently Relevant to Health Maintenance Insurance [facility] SUPP MEDICARE Advance Directives * Full Code (Latest Code Status on File) Date Activated Date Inactivated Comments 11/23/2023 8:48 AM 11/23/2023 1:53 PM * Full Code Date Activated Date Inactivated Comments 08/17/2023 10:08 AM 08/18/2023 4:16 PM Healthcare Agents on File Name Relationship Healthcare Agent Relationship Communication Martita Pope Daughter Health Care Agent [email or web address] Care Teams Process Control Board Operator Relationship Specialty Start Date End Date Andree Lindquist PCP - General Family Medicine 03/26/23
--- OUTSIDE RECORDS SUMMARY | 2024-08-16 18:30 | XMS_ITS | Encounter Summary ---
Author Organization [employer] Address [address] [facility] 7[address] [place] [address] Care Team Providers Care Music Worker Name Role Phone Unavailable Primary Care [...] Description 08/23/2024 11:00 AM EST Office Visit [facility] DENTAL [address] [place] [address] Diane Burns documented as of this encounter Visit Diagnoses Not on filedocumented in this encounter Care Teams Music Worker Relationship Specialty Start Date End Date Dr. Meghan Hicks Primary Care Provider 08/17/[address] Andree Lindquist [facility] Primary Care [place], [place] Primary Care Provider 08/17/22 documented as of this encounter
--- OUTSIDE RECORDS SUMMARY | 2024-08-16 18:30 | XMS_ITS | Encounter Summary ---
Author Organization [employer] Address [address] [facility] 7t [place] [address] Care Team Providers Care Engineering Supplies Sales Name Role Phone Unavailable Primary Care Provider [...] 11:00 AM EST Office Visit [facility] DENTAL [address] [place] [address] Diane Burns documented as of this encounter Visit Diagnoses Not on filedocumented in this encounter Care Teams Engineering Supplies Sales Relationship Specialty Start Date End Date Dr. Meghan Hicks Primary Care Provider 08/17/[address] Andree Lindquist [facility] Primary Care [place], [place] Primary Care Provider 08/17/22 documented as of this encounter
--- OUTSIDE RECORDS SUMMARY | 2024-08-16 18:30 | XMS_ITS | Encounter Summary ---
Author Organization [facility] Address [address] [place] [address] Care Team Providers Care Script Writer Name Role Phone Andree Lindquist MD Primary Care Provider [phone] Encounter Details Date Type Department Care Team (Late st Contact Info) Description 07/16/2024 Lab Requisition [facility] - Main Lab [address] [facility] [place] [address] Mayo Donnelly MD [address] [place] [address] Encounter for other general examination Social History [...] (ABNORMAL) Magnesium (07/16/2024 5:30 AM EST) Pathologist [facility] Magnesium 1.6(L) 1.9 - 2.6 mg/dL LAB CHEMISTRY METHOD 07/16/2024 10:[address] [facility] Blood Venous blood specimen / Unknown Venipuncture / Unknown 07/16/2024 5:30 AM EST 07/16/2024 9:10 AM EST Mayo Donnelly MD LAB BLOOD ORDERABLES [facility] [address] [place] [address], * (ABNORMAL) CBC auto differential (07/16/2024 5:30 AM EST) [facility] WBC 5.8 4.8 - 10.8 K/mcL LAB HEMETOLOGY METHOD 07/16/2024 10:[address] [facility] RBC 3.80 3.80 - 4.80 M/[facility] LAB HEMETOLOGY METHOD 07/16/2024 10:[address] [facility] Hemoglobin 9.2(L) 11.5 - 16.0 g/dL LAB HEMETOLOGY METHOD 07/16/2024 10:[address] [facility] Hematocrit 30.8(L) 35.0 - 47.0 % LAB HEMETOLOGY METHOD 07/16/2024 10:[address] [facility] MCV 80.8 79.0 - 98.0 FL LAB HEMETOLOGY METHOD 07/16/2024 10:[address] [facility] MCH 24.1(L) 27.0 - 32.0 pcg LAB HEMETOLOGY METHOD 07/16/2024 10:[address] [facility] MCHC 29.9(L) 32.0 - 37.0 g/dL LAB HEMETOLOGY METHOD 07/16/2024 10:[address] [facility] RDW 14.9 11.0 - 15.0 % LAB HEMETOLOGY METHOD 07/16/2024 10:[address] [facility] Platelets 247 130 - 400 K/mcL LAB HEMETOLOGY METHOD 07/16/2024 10:[address] [facility] MPV 10.8 7.0 - 11.0 FL LAB HEMETOLOGY METHOD 07/16/2024 10:[address] [facility] NRBC 0.0 <1.0 % LAB HEMETOLOGY METHOD 07/16/2024 10:[address] [facility] NRBC Absolute 0.00 <0.10 K/mcL LAB HEMETOLOGY METHOD 07/16/2024 10:[address] [facility] Neutrophils Relative 69.6 % LAB HEMETOLOGY METHOD 07/16/2024 10:[address] [facility] Lymphocytes Relative 16.7 % LAB HEMETOLOGY METHOD 07/16/2024 10:[address] [facility] Monocytes Relative 10.1 % LAB HEMETOLOGY METHOD 07/16/2024 10:[address] [facility] Eosinophils Relative 3.1 % LAB HEMETOLOGY METHOD 07/16/2024 10:[address] [facility] Basophils Relative 0.2 % LAB HEMETOLOGY METHOD 07/16/2024 10:[address] [facility] Immature Granulocytes Relative 0.3 % LAB HEMETOLOGY METHOD 07/16/2024 10:[address] [facility] Neutrophils Absolute 4.01 1.50 - 7.00 K/mcL LAB HEMETOLOGY METHOD 07/16/2024 10:[address] [facility] Lymphocytes Absolute 0.96(L) 1.00 - 5.00 K/mcL LAB HEMETOLOGY METHOD 07/16/2024 10:[address] [facility] Monocytes Absolute 0.58 0.20 - 1.00 K/[facility] LAB HEMETOLOGY METHOD 07/16/2024 10:35 AM EST [facility] Eosinophils Absolute 0.18 0.00 - 0.50 K/[facility] LAB HEMETOLOGY METHOD 07/16/2024 10:35 AM EST [facility] Basophils Absolute 0.01 0.00 - 0.20 K/[facility] LAB HEMETOLOGY METHOD 07/16/2024 10:[address] [facility] Immature Granulocytes Absolute 0.02 0.00 - 0.03 K/[facility] LAB HEMETOLOGY METHOD 07/16/2024 10:[address] [facility] Blood Venous blood specimen / Unknown Venipuncture / Unknown 07/16/2024 5:30 AM EST 07/16/2024 9:10 AM EST Mayo Donnelly MD LAB BLOOD ORDERABLES [facility] [address] [place] [address], * (ABNORMAL) Comprehensive metabolic panel (07/16/2024 5:30 AM EST) Sodium 133 133 - 145 mmol/L LAB CHEMISTRY METHOD 07/16/2024 10:[address] [facility] Potassium 4.6 3.5 - 5.5 mmol/L LAB CHEMISTRY METHOD 07/16/2024 10:[address] [facility] Chloride 103 96 - 110 mmol/L LAB CHEMISTRY METHOD 07/16/2024 10:[address] [facility] CO2 24 21 - 32 mmol/L LAB CHEMISTRY METHOD 07/16/2024 10:[address] [facility] Anion Gap 6 3 - 11 LAB CHEMISTRY METHOD 07/16/2024 10:[address] [facility] Glucose 125(H) 70 - 100 mg/dL LAB CHEMISTRY METHOD 07/16/2024 10:[address] [facility] BUN 33(H) 5 - 25 mg/dL LAB CHEMISTRY METHOD 07/16/2024 10:[address] [facility] Creatinine 1.13(H) 0.50 - 1.10 mg/dL LAB CHEMISTRY METHOD 07/16/2024 10:[address] [facility] eGFR 51(L) >=60 mL/min/1. 73m2 LAB CHEMISTRY METHOD 07/16/2024 10:[address] [facility] Comment:Calculation based on the??Chronic Kidney Disease Epidemiology Collaboration (CKD-EPI) equation refit??without adjustment for race. BUN/Creatinine Ratio 29.2 LAB CHEMISTRY METHOD 07/16/2024 10:[address] [facility] Calcium 9.0 8.5 - 10.5 mg/dL LAB CHEMISTRY METHOD 07/16/2024 10:[address] [facility] AST (SGOT) 18 10 - 42 unit/L LAB CHEMISTRY METHOD 07/16/2024 10:[address] [facility] ALT (SGPT) 8(L) 10 - 60 unit/L LAB CHEMISTRY METHOD 07/16/2024 10:[address] [facility] Alkaline Phosphatase 61 42 - 121 unit/L LAB CHEMISTRY METHOD 07/16/2024 10:[address] [facility] Total Protein 6.3 6.0 - 8.0 g/dL LAB CHEMISTRY METHOD 07/16/2024 10:[address] [facility] Albumin 3.4 3.2 - 5.0 g/dL LAB CHEMISTRY METHOD 07/16/2024 10:[address] [facility] Total Bilirubin 0.5 0.0 - 1.4 mg/dL LAB CHEMISTRY METHOD 07/16/2024 10:[address] [facility] Blood Venous blood specimen / Unknown Venipuncture / Unknown 07/16/2024 5:30 AM EST 07/16/2024 9:10 AM EST Mayo Donnelly MD LAB BLOOD ORDERABLES Performing Organization Address City/State/[facility] Co de Phone Number [facility] [address] [place] [address], documented in this encounter Visit Diagnoses Diagnosis Encounter for other general examination documented in this encounter Care Teams Script Writer Relationship Specialty Start Date End Date Andree Lindquist MD PCP - General Internal Medicine 03/19/22 documented as of this encounter
--- OUTSIDE RECORDS SUMMARY | 2024-08-16 18:30 | XMS_ITS ---
Author Organization [facility] Address [address] [place] [address] Care Team Providers Care Cabinet Finisher Name Role Phone KtAndree Pretty Primary Care Provider [phone] Active Problems Problem Noted Date Diagnosed Date [...] treatments are documented for this patient in [facility]. Treatments may have been administered in another system. Lifetime Dose Tracking * Chemical Lifetime Dose Automatic Entry Manual Entr y Fluoro Time 0.2 minutes 0.2 minutes 0 minutes TotalDLP 609 mGy 609 mGy 0 mGy [id number] 10.3 mSv 10.3 mSv 0 mSv CTDIvol Max 7.2 mGy 7.2 mGy 0 mGy CTDIvol Min 5 mGy 5 mGy 0 mGy Radiation - mGy 0.7 mGy 0.7 mGy 0 mGy
--- OUTSIDE RECORDS SUMMARY | 2024-08-16 18:30 | XMS_ITS | Encounter Summary ---
Author Organization [facility] Address [address] [place] [address] Care Team Providers Care Painter And Decorator Name Role Phone Andree Lindquist MD Primary Care Provider [phone] Encounter Details Date Type Department Care Team (Late st Contact Info) Description 07/25/2024 Lab Requisition [facility] - Main Lab [address] [place] [address] Mayo Donnelly MD [address] [place] [address] Encounter for other general examination Social History [...] reflex microscopic (07/24/2024 6:55 PM EST) Specific [place] Urine 1.025 1.003 - 1.030 LAB URINALYSIS - AUTOMATED METHOD 07/25/2024 1:24 PM [facility] pH, Urine 5.5 5.0 - 8.0 pH LAB URINALYSIS - AUTOMATED METHOD 07/25/2024 1:24 PM [facility] Leukocytes, Urine Moderate(A) Negative LAB URINALYSIS - AUTOMATED METHOD 07/25/2024 1:24 PM [facility] Nitrite, Urine Positive(A) Negative LAB URINALYSIS - AUTOMATED METHOD 07/25/2024 1:24 PM [facility] Protein, Urine >=300(A) <=Trace mg/dL LAB URINALYSIS - AUTOMATED METHOD 07/25/2024 1:24 PM [facility] Glucose, Urine Negative Negative mg/dL LAB URINALYSIS - AUTOMATED METHOD 07/25/2024 1:24 PM [facility] Ketones, Urine Trace(A) Negative mg/dL LAB URINALYSIS - AUTOMATED METHOD 07/25/2024 1:24 PM [facility] Urobilinogen , Urine 1.0 0.2 - 1.0 mg/dL LAB URINALYSIS - AUTOMATED METHOD 07/25/2024 1:24 PM [facility] Bilirubin, Urine Negative Negative LAB URINALYSIS - AUTOMATED METHOD 07/25/2024 1:24 PM [facility] Blood, Urine Large(A) Negative LAB URINALYSIS - AUTOMATED METHOD 07/25/2024 1:24 PM [facility] RBC, Urine >4,000(H) 0 - 4 /HPF LAB URINALYSIS - AUTOMATED METHOD 07/25/2024 1:24 PM [facility] WBC, Urine 1,000.0(H) 0 - 4 /HPF LAB URINALYSIS - AUTOMATED METHOD 07/25/2024 1:24 PM [facility] Squamous Epithelial, Urine >100(H) 0 - 60 /LPF LAB URINALYSIS - AUTOMATED METHOD 07/25/2024 1:24 PM [facility] Bacteria, Urine Many(A) Negative /HPF LAB URINALYSIS - AUTOMATED METHOD 07/25/2024 1:24 PM [facility] Hyaline Casts, Urine 0.00 0 - 3 /LPF LAB URINALYSIS - AUTOMATED METHOD 07/25/2024 1:24 PM [facility] Urine Urine specimen obtained by clean catch procedure / Unknown Non-blood Collection / Unknown 07/24/2024 6:55 PM EST 07/25/2024 10:05 AM EST Mayo Donnelly MD LAB URINE ORDERABLES Performing Organization Address [facility]/ZIP Co de Phone Number [facility] [address] [place] [address], * Ceron urine culture tube (07/24/2024 6:55 PM EST) Extra Tube Hold for add-ons. 07/25/2024 12:01 PM [facility] Comment:Auto resulted. Urine Urine specimen obtained by clean catch procedure / Unknown Non-blood Collection / Unknown 07/24/2024 6:55 PM EST 07/25/2024 10:05 AM EST Mayo Donnelly MD LAB URINE ORDERABLES Performing Organization Address City/[facility]/ZIP Co de Phone Number [facility] [address] [place] [address], [place] [phone] documented in this encounter Visit Diagnoses Diagnosis Encounter for other general examination documented in this encounter Care Teams Painter And Decorator Relationship Specialty Start Date End Date Andree Lindquist MD PCP - General Internal Medicine 03/19/22 documented as of this encounter
--- OUTSIDE RECORDS SUMMARY | 2024-08-16 18:30 | XMS_ITS | Encounter Summary ---
Author Organization [facility] Address [address] [place] [address] Care Team Providers Care Medical Librarian Name Role Phone Andree Lindquist MD Primary Care Provider [phone] Encounter Details Date Type Department Care Team (Late st Contact Info) Description 07/21/[address] [facility] - Main Lab [address] [place] [phone] Mayo Donnelly MD [address] [place] [address] Encounter for other general examination Social History [...] AM EST) WBC 6.6 4.8 - 10.8 /[facility] LAB HEMETOLOGY METHOD 07/21/2024 8:[address] [facility] RBC 3.90 3.80 - 4.80 M/mcL LAB HEMETOLOGY METHOD 07/21/2024 8:01 AM [facility] Hemoglobin 9.4(L) 11.5 - 16.0 g/dL LAB HEMETOLOGY METHOD 07/21/2024 8:01 AM [facility] Hematocrit 31.3(L) 35.0 - 47.0 % LAB HEMETOLOGY METHOD 07/21/2024 8:01 AM [facility] MCV 80.3 79.0 - 98.0 FL LAB HEMETOLOGY METHOD 07/21/2024 8:01 AM [facility] MCH 24.1(L) 27.0 - 32.0 pcg LAB HEMETOLOGY METHOD 07/21/2024 8:01 AM [facility] MCHC 30.0(L) 32.0 - 37.0 g/dL LAB HEMETOLOGY METHOD 07/21/2024 8:01 AM [facility] RDW 15.4(H) 11.0 - 15.0 % LAB HEMETOLOGY METHOD 07/21/2024 8:01 AM [facility] Platelets 281 130 - 400 K/mcL LAB HEMETOLOGY METHOD 07/21/2024 8:01 AM [facility] MPV 10.5 7.0 - 11.0 FL LAB HEMETOLOGY METHOD 07/21/2024 8:01 AM [facility] NRBC 0.0 <1.0 % LAB HEMETOLOGY METHOD 07/21/2024 8:01 AM [facility] NRBC Absolute 0.00 <0.10 K/mcL LAB HEMETOLOGY METHOD 07/21/2024 8:01 AM [facility] Blood Venous blood specimen / Unknown Venipuncture / Unknown 07/21/2024 5:00 AM EST 07/21/2024 7:36 AM EST Mayo Donnelly MD LAB BLOOD ORDERABLES [facility] [address] [place] [address], * (ABNORMAL) Comprehensive metabolic panel (07/21/2024 5:00 AM EST) Sodium 133 133 - 145 mmol/L LAB CHEMISTRY METHOD 07/21/2024 8:49 AM [facility] Potassium 5.5 3.5 - 5.5 mmol/L LAB CHEMISTRY METHOD 07/21/2024 8:49 AM [facility] Chloride 103 96 - 110 mmol/L LAB CHEMISTRY METHOD 07/21/2024 8:49 AM [facility] CO2 24 21 - 32 mmol/L LAB CHEMISTRY METHOD 07/21/2024 8:49 AM [facility] Anion Gap 6 3 - 11 LAB CHEMISTRY METHOD 07/21/2024 8:49 AM [facility] Glucose 103(H) 70 - 100 mg/dL LAB CHEMISTRY METHOD 07/21/2024 8:49 AM [facility] BUN 54(H) 5 - 25 mg/dL LAB CHEMISTRY METHOD 07/21/2024 8:49 AM [facility] LAB Comment:Results verified by repeat testing Creatinine 1.34(H) 0.50 - 1.10 mg/dL LAB CHEMISTRY METHOD 07/21/2024 8:49 AM [facility] eGFR 41(L) >=60 mL/min/1. 73m2 LAB CHEMISTRY METHOD 07/21/2024 8:49 AM [facility] Comment:Calculation based on the??Chronic Kidney Disease Epidemiology Collaboration (CKD-EPI) equation refit??without adjustment for race. BUN/Creatinine Ratio 40.3 LAB CHEMISTRY METHOD 07/21/2024 8:49 AM EST [facility] Calcium 9.8 8.5 - 10.5 mg/dL LAB CHEMISTRY METHOD 07/21/2024 8:49 AM [facility] AST (SGOT) 19 10 - 42 unit/L LAB CHEMISTRY METHOD 07/21/2024 8:49 AM [facility] ALT (SGPT) 16 10 - 60 unit/L LAB CHEMISTRY METHOD 07/21/2024 8:49 AM [facility] Alkaline Phosphatase 68 42 - 121 unit/L LAB CHEMISTRY METHOD 07/21/2024 8:49 AM [facility] Total Protein 6.8 6.0 - 8.0 g/dL LAB CHEMISTRY METHOD 07/21/2024 8:49 AM [facility] Albumin 3.5 3.2 - 5.0 g/dL LAB CHEMISTRY METHOD 07/21/2024 8:49 AM [facility] Total Bilirubin 0.3 0.0 - 1.4 mg/dL LAB CHEMISTRY METHOD 07/21/2024 8:49 AM [facility] Blood Venous blood specimen / Unknown Venipuncture / Unknown 07/21/2024 5:00 AM EST 07/21/2024 7:36 AM EST Mayo Donnelly MD LAB BLOOD ORDERABLES [facility] [address] [place] [address], documented in this encounter Visit Diagnoses Diagnosis Encounter for other general examination documented in this encounter Care Teams Medical Librarian Relationship Specialty Start Date End Date Andree Lindquist MD PCP - General Internal Medicine 03/19/22 documented as of this encounter
--- OUTSIDE RECORDS SUMMARY | 2024-08-16 18:30 | XMS_ITS | Encounter Summary ---
Author Organization [facility] Address [address] [place] [address] Care Team Providers Care Marine Surveyor Name Role Phone Andree Lindquist MD Primary Care Provider [phone] Encounter Details Date Type Department Care Team (Late st Contact Info) Description 07/25/2024 Lab Requisition [facility] - Main Lab [address] [place] [phone] Mayo Donnelly MD [address] [place] [address] Encounter for other general examination Social History [...] LAB CHEMISTRY METHOD 07/25/2024 11:01 AM EST [facility] Potassium 5.5 3.5 - 5.5 mmol/L LAB CHEMISTRY METHOD 07/25/2024 11:01 AM EST [facility] Comment:Hemolysis present Chloride 111(H) 96 - 110 mmol/L LAB CHEMISTRY METHOD 07/25/2024 11:01 AM [facility] CO2 16(L) 21 - 32 mmol/L LAB CHEMISTRY METHOD 07/25/2024 11:01 AM [facility] LAB Anion Gap 8 3 - 11 LAB CHEMISTRY METHOD 07/25/2024 11:01 AM [facility] Glucose 85 70 - 100 mg/dL LAB CHEMISTRY METHOD 07/25/2024 11:01 AM [facility] BUN 66(H) 5 - 25 mg/dL LAB CHEMISTRY METHOD 07/25/2024 11:01 AM [facility] Creatinine 1.20(H) 0.50 - 1.10 mg/dL LAB CHEMISTRY METHOD 07/25/2024 11:01 AM [facility] LAB eGFR 47(L) >=60 mL/min/1. 73m2 LAB CHEMISTRY METHOD 07/25/2024 11:01 AM [facility] LAB Comment:Calculation based on the??Chronic Kidney Disease Epidemiology Collaboration (CKD-EPI) equation refit??without adjustment for race. BUN/Creatinine Ratio 55.0 LAB CHEMISTRY METHOD 07/25/2024 11:01 AM [facility] Calcium 9.2 8.5 - 10.5 mg/dL LAB CHEMISTRY METHOD 07/25/2024 11:01 AM [facility] Blood Venous blood specimen / Unknown Venipuncture / Unknown 07/25/2024 4:31 AM EST 07/25/2024 9:59 AM EST Mayo Donnelly MD LAB BLOOD ORDERABLES [facility] [address] [place] [address], documented in this encounter Visit Diagnoses Diagnosis Encounter for other general examination documented in this encounter Care Teams Marine Surveyor Relationship Specialty Start Date End Date Andree Lindquist MD PCP - General Internal Medicine 03/19/22 documented as of this encounter
--- OUTSIDE RECORDS SUMMARY | 2024-08-16 18:30 | XMS_ITS | Encounter Summary ---
Author Organization [facility] Address [address] [place] [address] Care Team Providers Care Keeler Polygraph Operator Name Role Phone Andree Lindquist MD Primary Care Provider [phone] Encounter Details Date Type Department Care Team (Late st Contact Info) Description 07/24/2024 Lab Requisition [facility] - Main Lab [address] [place] [phone] Mayo Donnelly MD [address] [place] [address] Encounter for other general examination Social History [...] AM EST) WBC 6.4 4.8 - 10.8 /[facility] LAB HEMETOLOGY METHOD 07/24/2024 11:31 AM EST [facility] LAB RBC 3.90 3.80 - 4.80 M/mcL LAB HEMETOLOGY METHOD 07/24/2024 11:31 AM [facility] Hemoglobin 9.4(L) 11.5 - 16.0 g/dL LAB HEMETOLOGY METHOD 07/24/2024 11:31 AM [facility] Hematocrit 31.7(L) 35.0 - 47.0 % LAB HEMETOLOGY METHOD 07/24/2024 11:31 AM [facility] MCV 81.1 79.0 - 98.0 FL LAB HEMETOLOGY METHOD 07/24/2024 11:31 AM [facility] MCH 24.0(L) 27.0 - 32.0 pcg LAB HEMETOLOGY METHOD 07/24/2024 11:31 AM [facility] MCHC 29.7(L) 32.0 - 37.0 g/dL LAB HEMETOLOGY METHOD 07/24/2024 11:31 AM [facility] RDW 15.5(H) 11.0 - 15.0 % LAB HEMETOLOGY METHOD 07/24/2024 11:31 AM [facility] Platelets 315 130 - 400 K/mcL LAB HEMETOLOGY METHOD 07/24/2024 11:31 AM [facility] MPV 10.5 7.0 - 11.0 FL LAB HEMETOLOGY METHOD 07/24/2024 11:31 AM [facility] NRBC 0.0 <1.0 % LAB HEMETOLOGY METHOD 07/24/2024 11:31 AM [facility] NRBC Absolute 0.00 <0.10 K/mcL LAB HEMETOLOGY METHOD 07/24/2024 11:31 AM [facility] Blood Venous blood specimen / Unknown Venipuncture / Unknown 07/24/2024 5:17 AM EST 07/24/2024 10:19 AM EST Mayo Donnelly MD LAB BLOOD ORDERABLES [facility] [address] [place] [address], * (ABNORMAL) Comprehensive metabolic panel (07/24/2024 5:17 AM EST) Sodium 132(L) 133 - 145 mmol/L LAB CHEMISTRY METHOD 07/24/2024 12:19 PM [facility] Potassium 5.7(H) 3.5 - 5.5 mmol/L LAB CHEMISTRY METHOD 07/24/2024 12:19 PM [facility] Chloride 108 96 - 110 mmol/L LAB CHEMISTRY METHOD 07/24/2024 12:19 PM [facility] CO2 18(L) 21 - 32 mmol/L LAB CHEMISTRY METHOD 07/24/2024 12:19 PM [facility] Anion Gap 6 3 - 11 LAB CHEMISTRY METHOD 07/24/2024 12:19 PM [facility] Glucose 90 70 - 100 mg/dL LAB CHEMISTRY METHOD 07/24/2024 12:19 PM [facility] BUN 74(H) 5 - 25 mg/dL LAB CHEMISTRY METHOD 07/24/2024 12:19 PM [facility] Creatinine 1.54(H) 0.50 - 1.10 mg/dL LAB CHEMISTRY METHOD 07/24/2024 12:19 PM [facility] eGFR 35(L) >=60 mL/min/1. 73m2 LAB CHEMISTRY METHOD 07/24/2024 12:19 PM [facility] Comment:Calculation based on the??Chronic Kidney Disease Epidemiology Collaboration (CKD-EPI) equation refit??without adjustment for race. BUN/Creatinine Ratio 48.1 LAB CHEMISTRY METHOD 07/24/2024 12:19 PM [facility] Calcium 9.3 8.5 - 10.5 mg/dL LAB CHEMISTRY METHOD 07/24/2024 12:19 PM [facility] AST (SGOT) 20 10 - 42 unit/L LAB CHEMISTRY METHOD 07/24/2024 12:19 PM [facility] ALT (SGPT) 15 10 - 60 unit/L LAB CHEMISTRY METHOD 07/24/2024 12:19 PM [facility] Alkaline Phosphatase 72 42 - 121 unit/L LAB CHEMISTRY METHOD 07/24/2024 12:19 PM [facility] Total Protein 6.7 6.0 - 8.0 g/dL LAB CHEMISTRY METHOD 07/24/2024 12:19 PM [facility] Albumin 3.6 3.2 - 5.0 g/dL LAB CHEMISTRY METHOD 07/24/2024 12:19 PM [facility] Total Bilirubin 0.3 0.0 - 1.4 mg/dL LAB CHEMISTRY METHOD 07/24/2024 12:19 PM [facility] Blood Venous blood specimen / Unknown Venipuncture / Unknown 07/24/2024 5:17 AM EST 07/24/2024 10:19 AM EST Mayo Donnelly MD LAB BLOOD ORDERABLES [facility] [address] [place] [address], documented in this encounter Visit Diagnoses Diagnosis Encounter for other general examination documented in this encounter Care Teams Keeler Polygraph Operator Relationship Specialty Start Date End Date Andree Lindquist MD PCP - General Internal Medicine 03/19/22 documented as of this encounter
--- OUTSIDE RECORDS SUMMARY | 2024-08-16 18:30 | XMS_ITS | Clinical Summary ---
Author Organization [address] Address [address] [place] [address] Phone Care Team Providers Care Fire And Safety Helper Name Role Phone Andree Lindquist MD Primary Care Provider [phone] Encounters Date Type Department Care Team Description 08/01/[address] [facility] Lab [address] [place] [address] Mayo Donnelly MD Encounter for other general examination 07/27/[address] [facility] Lab [address] [place] [address] Mayo Donnelly MD Encounter for other general examination 07/26/[address] [facility] Lab [address] [place] [address] Mayo Donnelly MD Encounter for other general examination 07/25/[address] [facility] Lab [address] [place] [address] Mayo Donnelly MD Encounter for other general examination 07/25/[address] [facility] Lab [address] [place] [address] Mayo Donnelly MD Encounter for other general examination 07/24/[address] [facility] Lab [address] [place] [address] Mayo Donnelly MD Encounter for other general examination 07/21/2024 Lab Requisition [facility] Lab [address] [place] [phone] Mayo Donnelly MD Encounter for other general examination 07/16/2024 Lab Requisition [facility] Lab [address] [place] [phone] Mayo Donnelly MD Encounter for other general [...] dr. logan, no intervention, 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[facility]) 11/28/2012 DX:Diabetes shelton itus type 2 with neurological manifestations ([facility]); COMMENT: PMH of carpal tunnel Type 2 diabetes mellitus wit h cataract ([facility]) 03/25/2015 DX:Type 2 diabetes mellitus with cataract ([facility]); COMMENT: Cataracts Parkinson disease ([facility]) 10/16/2015 DX:P arkinson disease ([facility]) Closed fracture of right dis sona [...] (Age mid 70's) thro at cancer, emphysema (granulator tender) Mother (Age mid 70's) Sister 1 Sister [...] is included. WBC 11.1(H) 4.8 - 10.8 K/[facility] LAB HEMETOLOGY METHOD 08/01/2024 10:45 AM EST [facility] LAB RBC 3.80 3.80 - 4.80 M/[facility] LAB HEMETOLOGY METHOD 08/01/2024 10:45 AM EST [facility] LAB Hemoglobin 9.3(L) 11.5 - 16.0 g/dL LAB HEMETOLOGY METHOD 08/01/2024 10:45 AM [facility] LAB Hematocrit 30.6(L) 35.0 - 47.0 % LAB HEMETOLOGY METHOD 08/01/2024 10:45 AM [facility] LAB MCV 81.4 79.0 - 98.0 FL LAB HEMETOLOGY METHOD 08/01/2024 10:45 AM [facility] LAB MCH 24.7(L) 27.0 - 32.0 pcg LAB HEMETOLOGY METHOD 08/01/2024 10:45 AM [facility] LAB MCHC 30.4(L) 32.0 - 37.0 g/dL LAB HEMETOLOGY METHOD 08/01/2024 10:45 AM [facility] LAB RDW 16.0(H) 11.0 - 15.0 % LAB HEMETOLOGY METHOD 08/01/2024 10:45 AM [facility] LAB Platelets 327 130 - 400 K/mcL LAB HEMETOLOGY METHOD 08/01/2024 10:45 AM [facility] LAB MPV 10.4 7.0 - 11.0 FL LAB HEMETOLOGY METHOD 08/01/2024 10:45 AM [facility] LAB NRBC 0.0 <1.0 % LAB HEMETOLOGY METHOD 08/01/2024 10:45 AM [facility] LAB NRBC Absolute 0.00 <0.10 K/mcL LAB HEMETOLOGY METHOD 08/01/2024 10:45 AM [facility] LAB Blood Venous blood specimen / Unknown Venipuncture / Unknown 08/01/2024 4:56 AM EST 08/01/2024 9:34 AM EST Mayo Donnelly MD LAB BLOOD ORDERABLES [facility] LAB [address] [place] [address], * (ABNORMAL) Comprehensive metabolic panel (08/01/2024 4:56 AM EST) Only the most recent of5 resultswithin the time period is included. Sodium 136 133 - 145 mmol/L LAB CHEMISTRY METHOD 08/01/2024 11:16 AM [facility] LAB Potassium 5.5 3.5 - 5.5 mmol/L LAB CHEMISTRY METHOD 08/01/2024 11:16 AM [facility] LAB Chloride 105 96 - 110 mmol/L LAB CHEMISTRY METHOD 08/01/2024 11:16 AM [facility] LAB CO2 26 21 - 32 mmol/L LAB CHEMISTRY METHOD 08/01/2024 11:16 AM [facility] LAB Anion Gap 5 3 - 11 LAB CHEMISTRY METHOD 08/01/2024 11:16 AM [facility] LAB Glucose 83 70 - 100 mg/dL LAB CHEMISTRY METHOD 08/01/2024 11:16 AM [facility] LAB BUN 44(H) 5 - 25 mg/dL LAB CHEMISTRY METHOD 08/01/2024 11:16 AM [facility] LAB Creatinine 1.15(H) 0.50 - 1.10 mg/dL LAB CHEMISTRY METHOD 08/01/2024 11:16 AM [facility] LAB eGFR 49(L) >=60 mL/min/1. 73m2 LAB CHEMISTRY METHOD 08/01/2024 11:16 AM [facility] LAB Comment:Calculation based on the??Chronic Kidney Disease Epidemiology Collaboration (CKD-EPI) equation refit??without adjustment for race. BUN/Creatinine Ratio 38.3 LAB CHEMISTRY METHOD 08/01/2024 11:16 AM [facility] LAB Calcium 9.3 8.5 - 10.5 mg/dL LAB CHEMISTRY METHOD 08/01/2024 11:16 AM [facility] LAB AST (SGOT) 23 10 - 42 unit/L LAB CHEMISTRY METHOD 08/01/2024 11:16 AM [facility] LAB ALT (SGPT) 17 10 - 60 unit/L LAB CHEMISTRY METHOD 08/01/2024 11:16 AM [facility] LAB Alkaline Phosphatase 67 42 - 121 unit/L LAB CHEMISTRY METHOD 08/01/2024 11:16 AM [facility] Total Protein 6.6 6.0 - 8.0 g/dL LAB CHEMISTRY METHOD 08/01/2024 11:16 AM [facility] LAB Albumin 3.4 3.2 - 5.0 g/dL LAB CHEMISTRY METHOD 08/01/2024 11:16 AM [facility] Total Bilirubin 0.3 0.0 - 1.4 mg/dL LAB CHEMISTRY METHOD 08/01/2024 11:16 AM [facility] Blood Venous blood specimen / Unknown Venipuncture / Unknown 08/01/2024 4:56 AM EST 08/01/2024 9:34 AM EST Mayo Donnelly MD LAB BLOOD ORDERABLES [facility] [address] [place] [address], * (ABNORMAL) Urinalysis with reflex microscopic and culture (07/25/2024 6:02 PM EST) Specific [place] Urine 1.025 1.003 - 1.030 LAB URINALYSIS - AUTOMATED METHOD 07/26/2024 12:32 PM [facility] pH, Urine 6.5 5.0 - 8.0 pH LAB URINALYSIS - AUTOMATED METHOD 07/26/2024 12:32 PM [facility] Leukocytes, Urine Small(A) Negative LAB URINALYSIS - AUTOMATED METHOD 07/26/2024 12:32 PM [facility] Nitrite, Urine Positive(A) Negative LAB URINALYSIS - AUTOMATED METHOD 07/26/2024 12:32 PM [facility] Protein, Urine >=300(A) <=Trace mg/dL LAB URINALYSIS - AUTOMATED METHOD 07/26/2024 12:32 PM [facility] Glucose, Urine Negative Negative mg/dL LAB URINALYSIS - AUTOMATED METHOD 07/26/2024 12:32 PM [facility] Ketones, Urine Negative Negative mg/dL LAB URINALYSIS - AUTOMATED METHOD 07/26/2024 12:32 PM [facility] Urobilinogen , Urine 0.2 0.2 - 1.0 mg/dL LAB URINALYSIS - AUTOMATED METHOD 07/26/2024 12:32 PM [facility] Bilirubin, Urine Negative Negative LAB URINALYSIS - AUTOMATED METHOD 07/26/2024 12:32 PM [facility] Blood, Urine Large(A) Negative LAB URINALYSIS - AUTOMATED METHOD 07/26/2024 12:32 PM [facility] RBC, Urine >200 /HPF 07/26/2024 12:32 PM [facility] WBC, Urine 15 /HPF 07/26/2024 12:32 PM [facility] Bacteria, Urine 2+(A) (none) /HPF 07/26/2024 12:32 PM [facility] Urine Urine specimen obtained by clean catch procedure / Unknown 07/25/2024 6:02 PM EST 07/26/2024 11:14 AM EST Mayo Donnelly MD LAB URINE ORDERABLES [facility] [address] [place] [address], * Ceron urine culture tube (07/25/2024 6:02 PM EST) Only the most recent of2 resultswithin the time period is included. Extra Tube Hold for add-ons. 07/26/2024 1:01 PM EST [facility] Comment:Auto resulted. Urine Urine specimen obtained by clean catch procedure / Unknown 07/25/2024 6:02 PM EST 07/26/2024 11:14 AM EST Mayo Donnelly MD LAB URINE ORDERABLES [facility] [address] [place] [address], * (ABNORMAL) Culture urine (07/25/2024 6:02 PM EST) Culture, Urine >100,000 CFU/mL Escherichia coli(A) YARED 07/29/2024 8:22 AM EST [facility] Culture, Urine 10,000-49,000 CFU/mL Enterococcus faecalis(A) YARED 07/29/2024 8:22 AM EST [facility] Comment: The organism value for this result has been updated. These results have been appended to the previously preliminary verified report. Edited result: Previously reported as Gram Positive Cocci on 07/28/2024 at 1053 EST. Urine Urine specimen obtained by clean catch procedure / Unknown 07/25/2024 6:02 PM EST 07/26/2024 12:32 PM EST Narrative [facility] - 07/29/2024 8:22 AM EST [...] MD LAB MICROBIOLOGY - G ENERAL ORDERABLES [facility] [address] [place] [address], * (ABNORMAL) Basic metabolic panel (07/25/2024 4:31 AM EST) Sodium 135 133 - 145 mmol/L LAB CHEMISTRY METHOD 07/25/2024 11:01 AM [facility] Potassium 5.5 3.5 - 5.5 mmol/L LAB CHEMISTRY METHOD 07/25/2024 11:01 AM [facility] Comment:Hemolysis present Chloride 111(H) 96 - 110 mmol/L LAB CHEMISTRY METHOD 07/25/2024 11:01 AM [facility] CO2 16(L) 21 - 32 mmol/L LAB CHEMISTRY METHOD 07/25/2024 11:01 AM [facility] Anion Gap 8 3 - 11 LAB CHEMISTRY METHOD 07/25/2024 11:01 AM [facility] Glucose 85 70 - 100 mg/dL LAB CHEMISTRY METHOD 07/25/2024 11:01 AM [facility] BUN 66(H) 5 - 25 mg/dL LAB CHEMISTRY METHOD 07/25/2024 11:01 AM [facility] Creatinine 1.20(H) 0.50 - 1.10 mg/dL LAB CHEMISTRY METHOD 07/25/2024 11:01 AM [facility] eGFR 47(L) >=60 mL/min/1. 73m2 LAB CHEMISTRY METHOD 07/25/2024 11:01 AM [facility] Comment:Calculation based on the??Chronic Kidney Disease Epidemiology Collaboration (CKD-EPI) equation refit??without adjustment for race. BUN/Creatinine Ratio 55.0 LAB CHEMISTRY METHOD 07/25/2024 11:01 AM [facility] Calcium 9.2 8.5 - 10.5 mg/dL LAB CHEMISTRY METHOD 07/25/2024 11:01 AM [facility] Blood Venous blood specimen / Unknown Venipuncture / Unknown 07/25/2024 4:31 AM EST 07/25/2024 9:59 AM EST Mayo Donnelly MD LAB BLOOD ORDERABLES [facility] [address] [place] [address], * (ABNORMAL) Urinalysis with reflex microscopic (07/24/2024 6:55 PM EST) Specific [place] Urine 1.025 1.003 - 1.030 LAB URINALYSIS [...] EST Mayo Donnelly MD LAB URINE ORDERABLES [facility] [address] [place] [address], * (ABNORMAL) CBC auto differential (07/16/2024 5:30 AM EST) WBC 5.8 4.8 - 10.8 K/mcL LAB HEMETOLOGY METHOD 07/16/2024 10:35 AM [facility] RBC 3.80 3.80 - 4.80 M/mcL LAB HEMETOLOGY METHOD 07/16/2024 10:35 AM [facility] [...] AM [facility] Eosinophils Absolute 0.18 0.00 - 0.50 K/mcL LAB HEMETOLOGY METHOD 07/16/2024 10:35 AM EST [facility] Basophils Absolute 0.01 0.00 - 0.20 K/[facility] LAB HEMETOLOGY METHOD 07/16/2024 10:35 AM EST [facility] Immature Granulocytes Absolute 0.02 0.00 - 0.03 K/[facility] LAB HEMETOLOGY METHOD 07/16/2024 10:35 AM EST [facility] Blood Venous blood specimen / Unknown Venipuncture / Unknown 07/16/2024 5:30 AM EST 07/16/2024 9:10 AM EST Mayo Donnelly MD LAB BLOOD ORDERABLES Performing Organization Address City/[facility]/ZIP Co de Phone Number [facility] [address] [place] [address], * (ABNORMAL) Magnesium (07/16/2024 5:30 AM EST) Magnesium 1.6(L) 1.9 - 2.6 mg/dL LAB CHEMISTRY METHOD 07/16/2024 10:49 AM EST [facility] Blood Venous blood specimen / Unknown Venipuncture / Unknown 07/16/2024 5:30 AM EST 07/16/2024 9:10 AM EST Mayo Donnelly MD LAB BLOOD ORDERABLES [facility] [address] [place] [address], [place] [phone] * SCREENING MAMMOGRAPHY BI 2-VIEW BREAST INC [...] Documents on File Type Date Recorded Patient Supervisor Assembly Expl anation Health Care Decision (hx) 07/13/2012 AD RAYGOZA DIRECTIVE Health Care Decision (hx) 07/13/2012 AD RAYGOZA DIRECTIVE Health Care Decision (hx) 07/13/2012 AD RAYGOZA DIRECTIVE Health Care Decision (hx) 07/13/2012 AD RAYGOZA DIRECTIVE Care 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
--- OUTSIDE RECORDS SUMMARY | 2024-08-16 18:30 | XMS_ITS | Encounter Summary ---
Author Organization [employer] Address [address] [facility] [address] [place] [address] Care Team Providers Care Bicycle Repair Technician Name Role Phone Unavailable Primary Care Provider [...] Description 08/23/2024 11:00 AM EST Office Visit [facility] DENT[facility] [address] [place] [address] Diane Burns documented as of this encounter Visit Diagnoses Not on filedocumented in this encounter Care Teams Bicycle Repair Technician Relationship Specialty Start Date End Date Dr. Meghan Hicks Primary Care Provider 08/17/[address] Andree Lindquist [facility] Primary Care [place], [place] Primary Care Provider 08/17/22 documented as of this encounter
--- OUTSIDE RECORDS SUMMARY | 2024-08-16 18:30 | XMS_ITS | Referral Summary ---
Author Organization [facility] Address [address] [place] [address] Care Team Providers Care Functional Architect Name Role Phone KtAndree Pretty Primary Care Provider Encounters Date Type Department Care Team Description 07/24/2024 Orders Only [facility] [address] [place] [address] Lumber Piler Operator: Christen Dempsey MD Acute cystitis with hematuria (Primary Dx) 06/14/2024 8:30 AM EST Follow-Up [facility] [address] [place] [address] Lumber Piler Operator: Christen Dempsey MD Gross hematuria (Primary Dx); [...] Info) Description 06/20/2025 10:45 AM EST Follow-Up [facility] [address] [place] [address] Lumber Piler Operator: Christen Dempsey MD [address] [place] [address] Procedures * Due to [facility] law, this organization might not be sharing negative HIV tests. Procedure Name Priority Date/Time Associated Diagnosis Comments BASIC METABOLIC PANEL Routine 08/18/2023 4:45 AM EST from Last 3 Months or Most Recently Relevant to Health Maintenance Results * Due to [facility] law, this organization might not be sharing negative HIV tests. * (ABNORMAL) Basic Metabolic Panel (08/18/2023 4:45 AM EST) NA 137 135 - 145 mmol/L 08/18/2023 6:37 AM EST [facility] K 3.9 3.5 - 5.3 mmol/L 08/18/2023 6:37 AM EST [facility] Cl 106 97 - 110 mmol/L 08/18/2023 6:37 AM EST [facility] CO2 23(L) 24 - 32 mmol/L 08/18/2023 6:37 AM EST [facility] BUN 37(H) 7 - 23 mg/dL 08/18/2023 6:37 AM EST [facility] Creatinine 0.84 0.50 - 1.20 mg/dL 08/18/2023 6:37 AM EST [facility] Glucose 66(L) 70 - 99 mg/dL 08/18/2023 6:37 AM EST [facility] Calcium 8.3(L) 8.7 - 10.7 mg/dL 08/18/2023 6:37 AM EST [facility] Anion Gap 8 5 - 15 08/18/2023 6:37 AM EST [facility] eGFR 73 >=60 mL/min/1. 73m2 08/18/2023 6:37 AM EST [facility] Comment:The estimated glomer ular filtration [...] MD LAB BLOOD ORDERABLES Final Re sult [facility] [address] [place] [address], from Last 3 Months or Most Recently Relevant to Health Maintenance Insurance [facility] [employer] Advance Directives * Full Code (Latest Code Status on File) Date Activated Date Inactivated Comments 11/23/2023 8:48 AM 11/23/2023 1:53 PM * Full Code Date Activated Date Inactivated Comments 08/17/2023 10:08 AM 08/18/2023 4:16 PM Healthcare Agents on File Name Relationship Healthcare Agent Relationship Communication Martita Pope Daughter Health Care Agent [email or web address] Care Teams Functional Architect Relationship Specialty Start Date End Date Andree Lindquist PCP - General Family Medicine 03/26/23
--- OUTSIDE RECORDS SUMMARY | 2024-08-16 18:30 | XMS_ITS | Encounter Summary ---
Author Organization [facility] Address [address] [place] [address] Care Team Providers Care Crystalizer Name Role Phone Andree Lindquist MD Primary Care Provider [phone] Encounter Details Date Type Department Care Team (Late st Contact Info) Description 08/01/2024 Lab Requisition [facility] Lab [address] [place] [address] Mayo Donnelly MD [address] [place] [id number] Encounter for other general examination Social History [...] AM EST) WBC 11.1(H) 4.8 - 10.8 K/[facility] LAB HEMETOLOGY METHOD 08/01/2024 10:45 AM [facility] RBC 3.80 3.80 - 4.80 M/mcL LAB HEMETOLOGY METHOD 08/01/2024 10:45 AM [facility] Hemoglobin 9.3(L) 11.5 - 16.0 g/dL LAB HEMETOLOGY METHOD 08/01/2024 10:45 AM [facility] Hematocrit 30.6(L) 35.0 - 47.0 % LAB HEMETOLOGY METHOD 08/01/2024 10:45 AM [facility] MCV 81.4 79.0 - 98.0 FL LAB HEMETOLOGY METHOD 08/01/2024 10:45 AM [facility] MCH 24.7(L) 27.0 - 32.0 pcg LAB HEMETOLOGY METHOD 08/01/2024 10:45 AM [facility] MCHC 30.4(L) 32.0 - 37.0 g/dL LAB HEMETOLOGY METHOD 08/01/2024 10:45 AM [facility] RDW 16.0(H) 11.0 - 15.0 % LAB HEMETOLOGY METHOD 08/01/2024 10:45 AM [facility] Platelets 327 130 - 400 K/mcL LAB HEMETOLOGY METHOD 08/01/2024 10:45 AM [facility] MPV 10.4 7.0 - 11.0 FL LAB HEMETOLOGY METHOD 08/01/2024 10:45 AM [facility] NRBC 0.0 <1.0 % LAB HEMETOLOGY METHOD 08/01/2024 10:45 AM [facility] NRBC Absolute 0.00 <0.10 K/mcL LAB HEMETOLOGY METHOD 08/01/2024 10:45 AM [facility] Blood Venous blood specimen / Unknown Venipuncture / Unknown 08/01/2024 4:56 AM EST 08/01/2024 9:34 AM EST Mayo Donnelly MD LAB BLOOD ORDERABLES [facility] [address] [place] [address], * (ABNORMAL) Comprehensive metabolic panel (08/01/2024 4:56 AM EST) Sodium 136 133 - 145 mmol/L LAB CHEMISTRY METHOD 08/01/2024 11:16 AM EST [facility] Potassium 5.5 3.5 - 5.5 mmol/L LAB CHEMISTRY METHOD 08/01/2024 11:16 AM [facility] Chloride 105 96 - 110 mmol/L LAB CHEMISTRY METHOD 08/01/2024 11:16 AM [facility] CO2 26 21 - 32 mmol/L LAB CHEMISTRY METHOD 08/01/2024 11:16 AM [facility] Anion Gap 5 3 - 11 LAB CHEMISTRY METHOD 08/01/2024 11:16 AM [facility] Glucose 83 70 - 100 mg/dL LAB CHEMISTRY METHOD 08/01/2024 11:16 AM [facility] BUN 44(H) 5 - 25 mg/dL LAB CHEMISTRY METHOD 08/01/2024 11:16 AM [facility] Creatinine 1.15(H) 0.50 - 1.10 mg/dL LAB CHEMISTRY METHOD 08/01/2024 11:16 AM [facility] eGFR 49(L) >=60 mL/min/1. 73m2 LAB CHEMISTRY METHOD 08/01/2024 11:16 AM [facility] Comment:Calculation based on the??Chronic Kidney Disease Epidemiology Collaboration (CKD-EPI) equation refit??without adjustment for race. BUN/Creatinine Ratio 38.3 LAB CHEMISTRY METHOD 08/01/2024 11:16 AM [facility] Calcium 9.3 8.5 - 10.5 mg/dL LAB CHEMISTRY METHOD 08/01/2024 11:16 AM [facility] AST (SGOT) 23 10 - 42 unit/L LAB CHEMISTRY METHOD 08/01/2024 11:16 AM [facility] ALT (SGPT) 17 10 - 60 unit/L LAB CHEMISTRY METHOD 08/01/2024 11:16 AM [facility] Alkaline Phosphatase 67 42 - 121 unit/L LAB CHEMISTRY METHOD 08/01/2024 11:16 AM [facility] Total Protein 6.6 6.0 - 8.0 g/dL LAB CHEMISTRY METHOD 08/01/2024 11:16 AM [facility] Albumin 3.4 3.2 - 5.0 g/dL LAB CHEMISTRY METHOD 08/01/2024 11:16 AM [facility] Total Bilirubin 0.3 0.0 - 1.4 mg/dL LAB CHEMISTRY METHOD 08/01/2024 11:16 AM [facility] Blood Venous blood specimen / Unknown Venipuncture / Unknown 08/01/2024 4:56 AM EST 08/01/2024 9:34 AM EST Mayo Donnelly MD LAB BLOOD ORDERABLES Performing Organization Address City/State/[facility] Co de Phone Number [facility] [address] [phone] documented in this encounter Visit Diagnoses Diagnosis Encounter for other general examination documented in this encounter Care Teams Crystalizer Relationship Specialty Start Date End Date Andree Lindquist MD PCP - General Internal Medicine 03/19/22 documented as of this encounter
--- OUTSIDE RECORDS SUMMARY | 2024-08-16 18:30 | XMS_ITS | Encounter Summary ---
Author Organization [facility] Address [address] [place] [address] Care Team Providers Care Kiln Feeder Name Role Phone Andree Lindquist MD Primary Care Provider [phone] Encounter Details Date Type Department Care Team (Late st Contact Info) Description 07/27/[address] [facility] - Main Lab [address] [place] [id number] Mayo Donnelly MD [address] [place] [id number] Encounter for other general examination Social History [...] AM EST) WBC 6.5 4.8 - 10.8 /[facility] LAB HEMETOLOGY METHOD 07/27/2024 11:45 AM EST [facility] LAB RBC 3.80 3.80 - 4.80 M/mcL LAB HEMETOLOGY METHOD 07/27/2024 11:45 AM [facility] LAB Hemoglobin 9.2(L) 11.5 - 16.0 g/dL LAB HEMETOLOGY METHOD 07/27/2024 11:45 AM [facility] LAB Hematocrit 30.8(L) 35.0 - 47.0 % LAB HEMETOLOGY METHOD 07/27/2024 11:45 AM [facility] LAB MCV 81.7 79.0 - 98.0 FL LAB HEMETOLOGY METHOD 07/27/2024 11:45 AM [facility] LAB MCH 24.4(L) 27.0 - 32.0 pcg LAB HEMETOLOGY METHOD 07/27/2024 11:45 AM [facility] LAB MCHC 29.9(L) 32.0 - 37.0 g/dL LAB HEMETOLOGY METHOD 07/27/2024 11:45 AM [facility] LAB RDW 15.8(H) 11.0 - 15.0 % LAB HEMETOLOGY METHOD 07/27/2024 11:45 AM [facility] LAB Platelets 318 130 - 400 K/mcL LAB HEMETOLOGY METHOD 07/27/2024 11:45 AM [facility] LAB MPV 10.3 7.0 - 11.0 FL LAB HEMETOLOGY METHOD 07/27/2024 11:45 AM [facility] LAB NRBC 0.0 <1.0 % LAB HEMETOLOGY METHOD 07/27/2024 11:45 AM [facility] LAB NRBC Absolute 0.00 <0.10 K/mcL LAB HEMETOLOGY METHOD 07/27/2024 11:45 AM [facility] LAB Blood Venous blood specimen / Unknown Venipuncture / Unknown 07/27/2024 6:45 AM EST 07/27/2024 10:56 AM EST Mayo Donnelly MD LAB BLOOD ORDERABLES [facility] LAB [address] [place] [address], * (ABNORMAL) Comprehensive metabolic panel (07/27/2024 6:45 AM EST) Sodium 134 133 - 145 mmol/L LAB CHEMISTRY METHOD 07/27/2024 2:10 PM EST [facility] LAB Potassium 5.2 3.5 - 5.5 mmol/L LAB CHEMISTRY METHOD 07/27/2024 2:10 PM [facility] LAB Chloride 107 96 - 110 mmol/L LAB CHEMISTRY METHOD 07/27/2024 2:10 PM [facility] LAB CO2 20(L) 21 - 32 mmol/L LAB CHEMISTRY METHOD 07/27/2024 2:10 PM [facility] LAB Anion Gap 7 3 - 11 LAB CHEMISTRY METHOD 07/27/2024 2:10 PM [facility] LAB Glucose 101(H) 70 - 100 mg/dL LAB CHEMISTRY METHOD 07/27/2024 2:10 PM [facility] LAB BUN 43(H) 5 - 25 mg/dL LAB CHEMISTRY METHOD 07/27/2024 2:10 PM [facility] LAB Creatinine 0.99 0.50 - 1.10 mg/dL LAB CHEMISTRY METHOD 07/27/2024 2:10 PM [facility] LAB eGFR 59(L) >=60 mL/min/1. 73m2 LAB CHEMISTRY METHOD 07/27/2024 2:10 PM [facility] LAB Comment:Calculation based on the??Chronic Kidney Disease Epidemiology Collaboration (CKD-EPI) equation refit??without adjustment for race. BUN/Creatinine Ratio 43.4 LAB CHEMISTRY METHOD 07/27/2024 2:10 PM [facility] LAB Calcium 9.4 8.5 - 10.5 mg/dL LAB CHEMISTRY METHOD 07/27/2024 2:10 PM [facility] LAB AST (SGOT) 23 10 - 42 unit/L LAB CHEMISTRY METHOD 07/27/2024 2:10 PM [facility] LAB ALT (SGPT) 16 10 - 60 unit/L LAB CHEMISTRY METHOD 07/27/2024 2:10 PM [facility] LAB Alkaline Phosphatase 65 42 - 121 unit/L LAB CHEMISTRY METHOD 07/27/2024 2:10 PM EST [facility] LAB Total Protein 6.4 6.0 - 8.0 g/dL LAB CHEMISTRY METHOD 07/27/2024 2:10 PM [facility] LAB Albumin 3.5 3.2 - 5.0 g/dL LAB CHEMISTRY METHOD 07/27/2024 2:10 PM [facility] LAB Total Bilirubin 0.2 0.0 - 1.4 mg/dL LAB CHEMISTRY METHOD 07/27/2024 2:10 PM EST [facility] LAB Blood Venous blood specimen / Unknown Venipuncture / Unknown 07/27/2024 6:45 AM EST 07/27/2024 10:56 AM EST Mayo Donnelly MD LAB BLOOD ORDERABLES Performing Organization Address City/State/[facility] Co de Phone Number [facility] [address] [phone] documented in this encounter Visit Diagnoses Diagnosis Encounter for other general examination documented in this encounter Care Teams Kiln Feeder Relationship Specialty Start Date End Date Andree Lindquist MD PCP - General Internal Medicine 03/19/22 documented as of this encounter
--- OUTSIDE RECORDS SUMMARY | 2024-08-16 18:32 | XMS_ITS | Clinical Summary ---
Author Organization [employer] Address [address] [place] [address] 7 [place] [address] Care Team Providers Care Toy Mechanic Name Role Phone Unavailable Primary Care Provider Unavailabl e Allergies Active Allergy Reactions Criticality Noted Date Comments Cefdinir Unknown 07/02/2022 Sulfa Antibiotics Unknown 07/02/2022 Trimethoprim Unknown 07/02/2022 Medications Umeclidinium [place] (INCRUSE ELLIPTA IN) Incruse Ellipta Ac tive [...] Description 07/07/2024 9:00 AM EST Office Visit [place] [facility] [address] [place] [address] Kiet Leonard Jr., DMD 06/30/2024 9:50 AM EST Office Visit [facility] D[facility] [address] [place] [address] Kiet Leonard Jr., DMD 06/21/2024 3:00 PM EST Office Visit [facility] D[facility] [address] [place] [address] Landon Trammell DDS Encounter for dental examination [...] EST Office Visit [facility] [address] [place] [address] Diane Burns Health Maintenance Due Date Last [...] Relevant to Health Maintenance Insurance # [address] [place] [address] [place] [id number] [facility] MEDEX CARE DENTAL - HSN FULL (MEDICAID) Care Teams Toy Mechanic Relationship Specialty Start Date End Date Dr. Andree Lindquist [facility] Primary Care [place], [place] Primary Care Provider 08/17/22
[2024-08-16 19:02] LABS: Appearance Urine Turbid; Color Urine Yellow; Glucose Urine UA Negative (Negative); Leukocyte Esterase Urine Large (3+) (Negative); Nitrite Urine Positive (Negative); UMIC TRIGGER UACC YES; Urine Blood Moderate (2+) (Negative); Urine Ketones Negative (Negative); Urine Protein 100 (2+) mg/dL (Neg-Trace)
[2024-08-16 19:32] LABS: Bacteria Urine 4+ (None Seen); RBC Urine >20 /HPF (0-2); UACC Culture Trigger YES; WBC Urine >50 /HPF (0-5)
== END 2024-08-16 18:31 | disposition home or self-care (01) ==
LOC: HO.LNP 18:30
PROVIDERS: PCP Internal Medicine; Visit Provider Internal Medicine
DX: R30.0 Dysuria (principal); B96.89 Other specified bacterial agents as the cause of diseases classified elsewhere
CPT/HCPCS: 81001; 81003; 87086; 87088; 87186

== ENCOUNTER 2024-09-02 12:45 | Outpatient (REF) | payer MEDICARE, SELFPAY ==
[2024-09-02 18:07] LABS: Appearance Urine Cloudy; Bacteria Urine None Seen (None Seen); Color Urine Red; Glucose Urine UA Negative (Negative); Hyaline Casts Urine 0-2 /LPF (0-2); Leukocyte Esterase Urine Small (1+) (Negative); Nitrite Urine Negative (Negative); PH 6.5 (5.0-9.0); RBC Urine >20 /HPF (0-2); Specific Gravity - Urine 1.015 (1.005-1.025); Squamous Epithelial Cell Urine 0-2 /HPF (0-2); UACC Culture Trigger YES; UMIC TRIGGER UACC YES; Urine Blood Large (3+) (Negative); Urine Ketones Negative (Negative); Urine Protein 100 (2+) mg/dL (Neg-Trace); WBC Urine >50 /HPF (0-5)
== END 2024-09-02 12:46 | disposition home or self-care (01) ==
LOC: HO.HMGCLNP 12:45
PROVIDERS: PCP Internal Medicine; Visit Provider Surgery
DX: N30.01 Acute cystitis with hematuria (principal)
CPT/HCPCS: 81001; 81003; 87086

== ENCOUNTER 2024-10-09 15:44 | Outpatient (REF) | payer MEDICARE, SELFPAY ==
--- OUTSIDE RECORDS SUMMARY | 2024-10-09 17:44 | XMS_ITS | Encounter Summary ---
Author Organization [facility] Address [address] [place] [address] Care Team Providers Care Sketcher Name Role Phone Andree Lindquist MD Primary Care Provider [phone] Encounter Details Date Type Department Care Team (Late st Contact Info) Description 07/27/2024 Lab Requisition [facility] - Main Lab [address] [place] [address] Mayo Donnelly MD [address] [place] [phone] Encounter for other general examination Social History Tobacco Use Types Packs/Day Years Used Date Smoking Tobacco: Former Cigarettes Q uit: 07/12/1998 Smokeless Tobacco: Never Alcohol Use Standard Drinks/Week Comments No 0 (1 standard drink = 0.6 oz pur e alcohol) Comments Unknown Sex and Gender Information Value Date Recorded Sex Assigned at Not on file Legal Sex Female 5:48 PM EST Gender Identity Not on file Sexual Orientation [...] AM EST) WBC 6.5 4.8 - 10.8 /[facility] LAB HEMETOLOGY METHOD 07/27/2024 11:45 AM [facility] LAB RBC 3.80 3.80 - 4.80 M/mcL LAB HEMETOLOGY METHOD 07/27/2024 11:45 AM [facility] LAB Hemoglobin 9.2(L) 11.5 - 16.0 g/dL LAB HEMETOLOGY METHOD 07/27/2024 11:45 AM [facility] LAB Hematocrit 30.8(L) 35.0 - 47.0 % LAB HEMETOLOGY METHOD 07/27/2024 11:45 AM [facility] LAB MCV 81.7 79.0 - 98.0 FL LAB HEMETOLOGY METHOD 07/27/2024 11:45 AM [facility] LAB MCH 24.4(L) 27.0 - 32.0 pcg LAB HEMETOLOGY METHOD 07/27/2024 11:45 AM [facility] LAB MCHC 29.9(L) 32.0 - 37.0 g/dL LAB HEMETOLOGY METHOD 07/27/2024 11:45 AM [facility] LAB RDW 15.8(H) 11.0 - 15.0 % LAB HEMETOLOGY METHOD 07/27/2024 11:45 AM [facility] LAB Platelets 318 130 - 400 K/mcL LAB HEMETOLOGY METHOD 07/27/2024 11:45 AM [facility] LAB MPV 10.3 7.0 - 11.0 FL LAB HEMETOLOGY METHOD 07/27/2024 11:45 AM [facility] LAB NRBC 0.0 <1.0 % LAB HEMETOLOGY METHOD 07/27/2024 11:45 AM [facility] LAB NRBC Absolute 0.00 <0.10 K/mcL LAB HEMETOLOGY METHOD 07/27/2024 11:45 AM [facility] LAB Blood Venous blood specimen / Unknown Venipuncture / Unknown 07/27/2024 6:45 AM EST 07/27/2024 10:56 AM EST us Mayo Donnelly MD LAB BLOOD ORDERABLES Final Res ult [facility] [address] [place] [address], [place] [phone] * (ABNORMAL) Comprehensive metabolic panel (07/27/2024 6:45 AM EST) Sodium 134 133 - 145 mmol/L LAB CHEMISTRY METHOD 07/27/2024 2:10 PM EST [facility] LAB Potassium 5.2 3.5 - 5.5 mmol/L LAB CHEMISTRY METHOD 07/27/2024 2:10 PM [facility] LAB Chloride 107 96 - 110 mmol/L LAB CHEMISTRY METHOD 07/27/2024 2:10 PM [facility] LAB CO2 20(L) 21 - 32 mmol/L LAB CHEMISTRY METHOD 07/27/2024 2:10 PM [facility] LAB Anion Gap 7 3 - 11 LAB CHEMISTRY METHOD 07/27/2024 2:10 PM [facility] LAB Glucose 101(H) 70 - 100 mg/dL LAB CHEMISTRY METHOD 07/27/2024 2:10 PM [facility] LAB BUN 43(H) 5 - 25 mg/dL LAB CHEMISTRY METHOD 07/27/2024 2:10 PM [facility] LAB Creatinine 0.99 0.50 - 1.10 mg/dL LAB CHEMISTRY METHOD 07/27/2024 2:10 PM [facility] LAB eGFR 59(L) >=60 mL/min/1. 73m2 LAB CHEMISTRY METHOD 07/27/2024 2:10 PM [facility] LAB Comment:Calculation based on the??Chronic Kidney Disease Epidemiology Collaboration (CKD-EPI) equation refit??without adjustment for race. BUN/Creatinine Ratio 43.4 LAB CHEMISTRY METHOD 07/27/2024 2:10 PM [facility] LAB Calcium 9.4 8.5 - 10.5 mg/dL LAB CHEMISTRY METHOD 07/27/2024 2:10 PM [facility] LAB AST (SGOT) 23 10 - 42 unit/L LAB CHEMISTRY METHOD 07/27/2024 2:10 PM [facility] LAB ALT (SGPT) 16 10 - 60 unit/L LAB CHEMISTRY METHOD 07/27/2024 2:10 PM [facility] LAB Alkaline Phosphatase 65 42 - 121 unit/L LAB CHEMISTRY METHOD 07/27/2024 2:10 PM [facility] LAB Total Protein 6.4 6.0 - 8.0 g/dL LAB CHEMISTRY METHOD 07/27/2024 2:10 PM [facility] LAB Albumin 3.5 3.2 - 5.0 g/dL LAB CHEMISTRY METHOD 07/27/2024 2:10 PM [facility] LAB Total Bilirubin 0.2 0.0 - 1.4 mg/dL LAB CHEMISTRY METHOD 07/27/2024 2:10 PM [facility] LAB Blood Venous blood specimen / Unknown Venipuncture / Unknown 07/27/2024 6:45 AM EST 07/27/2024 10:56 AM EST us Mayo Donnelly MD LAB BLOOD ORDERABLES Final Res ult [facility] [address] [place] [address], documented in this encounter Visit Diagnoses Diagnosis Encounter for other general examination documented in this encounter Care Teams Sketcher Relationship Specialty Start Date End Date Andree Lindquist MD PCP - General Internal Medicine 03/19/22 documented as of this encounter
--- OUTSIDE RECORDS SUMMARY | 2024-10-09 17:44 | XMS_ITS | Clinical Summary ---
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 Overview (08/26/2023): PMH of carpal tunnel PMH of carpal tunnel 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 Family History Medical History Relation Name Comments Macular degeneration Father Relation Name Status Comments Father Social History Tobacco Use Types Packs/Day Years Used Date Smoking Tobacco: Former Cigarettes 1 977 - 1996 Tobacco Cessation:Counseling Given: Not Answered Comments [...] Care Team (Late st Contact Info) Description 02/21/2025 10:50 AM EDT Office Visit [place] [facility] [address] [place] [address] Krystal Ramesh Health Maintenance Due Date Last Done Comments [...] 1-dose 75+ series) 10/19/2022 COVID-19 Vaccine ( - season) 2024 05/28/2021, 09/26/2020, 09/05/2020 Influenza Vaccine (#1) 2024 , 06/08/2022, 04/29/2020, Additional history exists Dental Prophylaxis 07/01/2024 12/30/2023, 1 08/31/2022, 01/23/2022, Additional history exists Eye Exam 08/26/2024 08/26/2023, 08/12, 08/26/2023, Additional history exists Dental Oral Exam 12/21/2024 06/21/2024, , 01/23/2022, Additional history exists Tobacco Screening 12/29/2024 12/30/2023 Dental X-Ray: Bitewings 06/22/2025 06/21/20 24, 06/30/2023, [...] Procedure Name Priority Date/Time Associated Diagnosis Comments INTRAORAL - COMPLETE SERIES OF RADIOGRAPHIC IMAGES Routine 06/21/2024 3:00 PM EST PERIODIC ORAL EVALUATION - ESTABLISHED PATIENT Routine 06/21/2024 3:00 PM EST Full PROPHYLAXIS - ADULT Routine 024 3:00 PM EDT from Last 3 Months or Most Recently Relevant to Health Maintenance Insurance # [address] [place] [address] MEDICARE [facility] MEDEX CARE DENTAL - HSN FULL (MEDICAID) Care Teams Alarm Installation Technician Relationship Specialty Start Date End Date Dr. Andree Lindquist [facility] Primary Care [place], [place] Primary Care Provider 08/17/22
--- OUTSIDE RECORDS SUMMARY | 2024-10-09 17:44 | XMS_ITS ---
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 Past Treatment and Therapy Plans No past plan information found. Lifetime Dose Tracking * Chemical Lifetime Dose Automatic Entry Manual Entr y Fluoro Time 0.2 minutes 0.2 minutes 0 minutes TotalDLP 609 mGy 609 mGy 0 mGy [id number] 10.3 mSv 10.3 mSv 0 mSv CTDIvol Max 7.2 mGy 7.2 mGy 0 mGy CTDIvol Min 5 mGy 5 mGy 0 mGy Radiation - mGy 0.7 mGy 0.7 mGy 0 mGy
--- OUTSIDE RECORDS SUMMARY | 2024-10-09 17:44 | XMS_ITS | Clinical Summary ---
Author Organization [facility] Address [address] [place] [address] Care Team Providers Care Fiberglass Model Maker Name Role Phone Ameena Andree Primary Care Provider [phone] Allergies Active Allergy Reactions Criticality Noted Date Comments Cefdinir Rash 07/22/2023 Sulfa (Sulfonamide Antibiotics) Rash 07/12 Trimethoprim Rash 07/22/2023 Medications glipiZIDE (GLUCOTROL) 5 mg tablet Take 2.5 mg by mouth once a day. 05/26/20 23 Active acidophilus-pe ctin, citrus 25 million cell -100 mg tablet Take 1 capsule by mouth after lunch. 05/19/20 23 Active losartan (COZAAR) 25 mg tablet Take 50 mg by mouth 2 times a day. Takes 50mg qAM and 25mg at 7pm if SBP>130 Active Estring 2 mg (7.5 mcg /24 hour) vaginal ring Apply 2 mg to the vagina every 3 months. 05/24/20 23 Active Myrbetriq 50 mg tablet 50 mg every morning. 07/13/[address] (PROTONIX) 40 mg tablet 40 mg at bed time. Active sertraline (ZOLOFT) 100 mg tablet Take 100 mg by mouth every morning. Active umeclidinium (INCRUSE ELLIPTA) 62.5 mcg/actuation blister with device Take 1 puff by mouth every morning. 05/19/20 23 Active LORazepam (ATIVAN) 0.5 mg tablet Take 0.5 mg by mouth every 8 hours as needed. 05/19/20 23 Active carbidopa-levo dopa (SINEMET) 25-100 mg per tablet Take 2 tablets by mouth 3 times a day. Active Ventolin HFA 90 mcg/actuation inhaler Inhale 2 puffs by mouth every 6 hours as needed. 06/24/20 Active ursodioL (ACTIGALL) 300 mg capsule Take 2 capsules by mouth 2 times a day. Active fenofibrate (LOFIBRA) 54 mg tablet Take 54 mg by mouth once a day. 11/22/19 24 Active trospium (SANCTURA) 20 mg tablet Take 20 mg by mouth 2 times a day. Active magnesium oxide (MAG-OX) 400 mg (241.3 mg mag) tablet Take 400 mg by mouth 2 times a day. Active multivitamin (THERAGRAN) tablet Take 1 tablet by mouth once a day. Active aspirin 81 mg capsule aspirin 81mg, 0 Refills, Maintenance, 09/12/24 9:32:00 AM EST 09/13/19 Active coQ10, ubiquinol, 200 mg capsule Take 200 mg by mouth. 09/29/19 25 026 Active omega-3s/dha/e pa/fish oil/D3 (VITAMIN-D + OMEGA-3 ORAL) once a week. saturdays09/13/19 25 Active Neurontin 300 mg capsule Take 300 mg by mouth 2 times a day. 09/05/19 25 Active acetaminophen (TYLENOL) 325 mg tablet Take 650 mg by mouth 3 times a day. Active acetaminophen (TYLENOL) 650 mg 8 hr tablet Take 650 mg by mouth every 8 hours as needed. 025 Discontinued Eliquis 5 mg tablet 5 mg every 12 hours. 07/17/19 25 025 Discontinued gabapentin (NEURONTIN) 100 mg capsule Take 100 mg by mouth 3 times a day. 07/24/19 25 025 Discontinued levoFLOXacin (LEVAQUIN) 750 mg tablet Take 750 mg by mouth once a day. 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, without long-term current use of [...] Encounters Date Type Department Care Team Description 10/03/2024 11:30 AM EDT Pre-Admission Testing [facility] [address] [place] [address] Meka Dover NP Urge incontinence (Primary Dx); Pre-op evaluation; Primary hypertension 10/03/2024 Telephone [facility] [address] [address] Dairy Manufacturing Technologist: Christen Dempsey MD 09/05/2024 myCluis enriquet Message [facility] [address] [address] Dairy Manufacturing Technologist: Paulette Sierra [facility] Surgery Wednesday10/17/2024 09/04/2024 Orders Only [facility] [address] [address] Dairy Manufacturing Technologist: Christen Dempsey MD 08/31/2024 Telephone [facility] [address] [address] Dairy Manufacturing Technologist: Christen Dempsey MD Update on pt's. symptoms 08/30/2024 Orders Only [facility] [address] [address] Dairy Manufacturing Technologist: Christen Dempsey MD Acute cystitis with hematuria (Primary Dx) 08/25/2024 1:00 PM EST Pre-Admission Testing [facility] [address] [address] Urge incontinence (Primary Dx); Preoperative testing 08/23/2024 Telephone [facility] [address] [address] Dairy Manufacturing Technologist: Christen Dempsey MD 08/21/2024 Prep for Case [facility] [address] [place] [address] Dairy Manufacturing Technologist: Christen Dempsey MD Urge incontinence (Primary Dx) 08/18/2024 Telephone [facility] [address] [address] Dairy Manufacturing Technologist: Paulette Giordano Telephone Intake, Staff PAC Appt Request - Established 07/24/2024 Orders Only [facility] [address] [place] [address] Dairy Manufacturing Technologist: Christen Dempsey MD Acute cystitis with hematuria (Primary Dx) from Last 3 Months Family History Medical History Relation Name Comments COPD Father Throat cancer Father Colon cancer Mother Heart disease Mother [place] Relation Name Status Comments Father Mother Social History Tobacco Use Types Packs/Day Years Used Date Smoking Tobacco: Former Cigarettes 1 45 1 954 - 1998 Smokeless Tobacco: Never Tobacco Cessation:Counseling Given: [...] Upcoming Encounters Date Type Department Care Team (Latest Contact Info) Description 10/17/2024 8:20 AM EDT Hospital Encounter [facility] [address] [place] [address] Christen Lopes MD [address] [place] [address] 10/17/2024 8:20 AM EDT Anesthesia Event [facility] [address] [place] [address] Kimberley Mack DO [address] [place] [address] 10/17/2024 8:20 AM EDT - 10/17/2024 9:10 AM EDT Surgery [facility] [address] [place] [address] Christen Lopes MD [address] [place] [address] CYSTOURETHROSCOPY WITH CHEMODENERVATION Botox 100 units [25186 (CPT??)] 06/20/2025 10:45 AM EST Follow-Up [facility] [address] [place] [address] Dairy Manufacturing Technologist: Christen Dempsey MD [address] [place] [address] Scheduled Procedures Name Priority Associated Diagnoses Date/Ti me CYSTOURETHROSCOPY WITH CHEMODENERVATION Urge incontinence 10/17/2024 8:20 AM EDT Health Maintenance Due Date Last Done Comments Hemoglobin A1C 1945 Hepatitis C Screening 1945 Medicare AWV 10/19/1946 Urine Microalbumin 10/19/1957 Osteoporosis Screening 10/19/1997 Hepatitis [...] 2024 , 06/08/2022, 04/29/2020, Additional history exists Alcohol/Substance Use Screening 07/12/2024 Depression Screening and Follow-Up 07/12/2024 Health Care Proxy Review 07/12/2024 Social Drivers of Health Odalis ual Screening 07/12/2024 Ophthalmology Exam 08/26/2024 08/26/2023, 08/17/2022 Basic Metabolic Panel 08/01/2025 08/01/2024 , 07/27/2024, 07/25/2024, Additional history exists Pneumococcal Vaccine: 50+ Years Completed 08/05/2016, 12/31/2014, 03/27/2009 Cologuard Discontinued 10/06/2021, 10/06/2021 Colon Cancer Screening Discontinued Colonoscopy Discontinued FOBT / Fit Test Discontinued Sigmoidoscopy Discontinued Procedures * Due to [place] [employer] law, this organization might not be sharing negative HIV tests. Procedure Name Priority Date/Time Associated Diagnosis Comments URINALYSIS, OUTSIDE LAB Routine 09/02/2024 9:20 AM EST LAB - SCANNED 08/29/2024 AMB EXTERNAL EKG, OUTSIDE RESULT 08/17/2024 AMB EXTERNAL EKG, OUTSIDE RESULT 08/17/2024 BASIC METABOLIC PANEL Routine 08/18/2023 4:45 AM EST from Last 3 Months or Most Recently Relevant to Health Maintenance Results * Due to [place] [employer] law, this organization might not be sharing negative HIV tests. * Urinalysis, Outside Lab (09/02/2024 9:20 AM EST) Christen Lopes MD LAB URINE ORDERABLES Final Re sult * LAB - SCANNED (08/29/2024) us Onbase Scan [facility][Note 3] LAB HISTORICAL RESULTS Final Result * EKG, Outside Results (08/17/2024) Only the most recent of2 resultswithin the time period is included. Anatomical Region Laterality Modality Other 08/17/2024 us Onbase Scan Mindy AMB EXTERNAL RESULT PROCEDURE S Final Result * (ABNORMAL) Basic Metabolic Panel (08/18/2023 4:45 AM EST) NA 137 135 - 145 mmol/L 08/18/2023 6:37 AM EST [facility] K 3.9 3.5 - 5.3 mmol/L 08/18/2023 6:37 AM EST [facility] Cl 106 97 - 110 mmol/L 08/18/2023 6:37 AM EST [facility] CO2 23(L) 24 - 32 mmol/L 08/18/2023 6:37 AM EST [facility] BUN 37(H) 7 - 23 mg/dL 08/18/2023 6:37 AM EST [facility] Creatinine 0.84 0.50 - 1.20 mg/dL 08/18/2023 6:37 AM EST [facility] Glucose 66(L) 70 - 99 mg/dL 08/18/2023 6:37 AM EST [facility] Calcium 8.3(L) 8.7 - 10.7 mg/dL 08/18/2023 6:37 AM EST [facility] Anion Gap 8 5 - 15 08/18/2023 6:37 AM EST [facility] eGFR 73 >=60 mL/min/1. 73m2 08/18/2023 6:37 AM EST [facility] Comment:The estimated glomer ular filtration rate (eGFR) is calculated using a new formula developed by the NKF-ASN task force to eliminate race-based correction factors. The new formula uses serum/plasma creatinine, age, and gender to determine eGFR. A value below 60mls/min might indicate kidney disease and will be flagged. For additional information, see Dipesh et al, Am J Kidney Dis. 2021;79(2):268- 288, A Unifying Approach for GFR estimation: Recommendations of the NKF-ASN Task Force on Reassessing the Inclusion of Race in Diagnosing Kidney Disease . Blood Structure of peripheral vein / Unknown Venipuncture / Unknown 08/18/2023 4:45 AM EST 08/18/2023 5:51 AM EST us Christen Lopes MD LAB BLOOD ORDERABLES Final Re sult [facility] [address] [place], [place] [phone], from Last 3 Months or Most Recently Relevant to Health Maintenance Insurance [facility] Member Subscriber Plan / Payer (Ef fective 2012-Present) Name:Francine Pope Member ID:[id number] Relation to Subscriber:Self Name:Francine Pope Subscriber ID:[id number] Payer ID:[id number] Group ID:Not on file Type:Not on file Address: [address] [place] [phone] Advance Directives * Full Code (Latest Code Status on File) Date Activated Date Inactivated Comments 11/23/2023 8:48 AM 11/23/2023 1:53 PM * Full Code Date Activated Date Inactivated Comments 08/17/2023 10:08 AM 08/18/2023 4:16 PM Healthcare Agents on File Name Relationship Healthcare Agent Relationship Communication Martita Pope Daughter Health Care Agent [email or web address] Care Teams Fiberglass Model Maker Relationship Specialty Start Date End Date Andree Lindquist PCP - General Family Medicine 03/26/23
--- OUTSIDE RECORDS SUMMARY | 2024-10-09 17:44 | XMS_ITS | Encounter Summary ---
Author Organization [facility] Address [address] [place] [address] Care Team Providers Care Crackling Press Operator Name Role Phone Andree Lindquist MD Primary Care Provider [phone] Encounter Details Date Type Department Care Team ([facility] st Contact Info) Description 07/26/2024 Lab Requisition [facility] [address] [facility] [place] [address] Mayo Donnelly MD [address] [place] [address] Encounter for other general examination Social History [...] Escherichia coli(A) YARED 07/29/2024 8:22 AM EST [facility] Culture, Urine 10,000-49,000 CFU/mL Enterococcus faecalis(A) YARED 07/29/2024 8:22 AM EST [facility] Comment: The organism value for this result has been updated. These results have been appended to the previously preliminary verified report. Edited result: Previously reported as Gram Positive Cocci on 07/28/2024 at 1053 EST. Urine Urine specimen obtained by clean catch procedure / Unknown 07/25/2024 6:02 PM EST 07/26/2024 12:32 PM EST [facility] - 07/29/2024 8:22 AM EST [...] Susceptible Mayo Donnelly MD LAB MICROBIOLOGY - GENERAL ORD ERABLES Final Result [facility] [address] [place] [address], [place] [phone] * (ABNORMAL) Urinalysis with reflex microscopic and culture (07/25/2024 6:02 PM EST) Specific [place] Urine 1.025 1.003 - 1.030 LAB URINALYSIS - AUTOMATED METHOD 07/26/2024 12:32 PM [facility] pH, Urine 6.5 5.0 - 8.0 pH LAB URINALYSIS - AUTOMATED METHOD 07/26/2024 12:32 PM [facility] Leukocytes, Urine Small(A) Negative LAB URINALYSIS - AUTOMATED METHOD 07/26/2024 12:32 PM [facility] Nitrite, Urine Positive(A) Negative LAB URINALYSIS - AUTOMATED METHOD 07/26/2024 12:32 PM [facility] Protein, Urine >=300(A) <=Trace mg/dL LAB URINALYSIS - AUTOMATED METHOD 07/26/2024 12:32 PM [facility] Glucose, Urine Negative Negative mg/dL LAB URINALYSIS - AUTOMATED METHOD 07/26/2024 12:32 PM [facility] Ketones, Urine Negative Negative mg/dL LAB URINALYSIS - AUTOMATED METHOD 07/26/2024 12:32 PM [facility] Urobilinogen , Urine 0.2 0.2 - 1.0 mg/dL LAB URINALYSIS - AUTOMATED METHOD 07/26/2024 12:32 PM [facility] Bilirubin, Urine Negative Negative LAB URINALYSIS - AUTOMATED METHOD 07/26/2024 12:32 PM [facility] Blood, Urine Large(A) Negative LAB URINALYSIS - AUTOMATED METHOD 07/26/2024 12:32 PM [facility] RBC, Urine >200 /HPF 07/26/2024 12:32 PM [facility] WBC, Urine 15 /HPF 07/26/2024 12:32 PM [facility] Bacteria, Urine 2+(A) (none) /HPF 07/26/2024 12:32 PM [facility] Urine Urine specimen obtained by clean catch procedure / Unknown 07/25/2024 6:02 PM EST 07/26/2024 11:14 AM EST Mayo Donnelly MD LAB URINE ORDERABLES Final Res ult Performing Organization Address City/[facility]/ZIP Co de Phone Number [facility] [address] [place] [address], [place] [phone] * Ceron urine culture tube (07/25/2024 6:02 PM EST) Extra Tube Hold for add-ons. 07/26/2024 1:01 PM EST [facility] Comment:Auto resulted. Urine Urine specimen obtained by clean catch procedure / Unknown 07/25/2024 6:02 PM EST 07/26/2024 11:14 AM EST us Mayo Donnelly MD LAB URINE ORDERABLES Final Res ult [facility] [address] [place] [address], [place] [phone] documented in this encounter Visit Diagnoses Diagnosis Encounter for other general examination documented in this encounter Care Teams Crackling Press Operator Relationship Specialty Start Date End Date Andree Lindquist MD PCP - General Internal Medicine 03/19/22 documented as of this encounter
--- OUTSIDE RECORDS SUMMARY | 2024-10-09 17:44 | XMS_ITS | Clinical Summary ---
Author Organization [address] Address [address] [place] [address] Phone Care Team Providers Care Recoating Machine Operator Name Role Phone Andree Lindquist MD Primary Care Provider [phone] Encounters Date Type Department Care Team Description 08/01/2024 Lab Requisition [facility] Lab [address] [place] [address] Mayo Donnelly MD Encounter for other general examination 07/27/2024 Lab Requisition [facility] Lab [address] [place] [address] Mayo Donnelly MD Encounter for other general examination 07/26/2024 Lab Requisition [facility] Lab [address] [place] [address] Mayo Donnelly MD Encounter for other general examination 07/25/2024 Lab Requisition [facility] Lab [address] [place] [address] Mayo Donnelly MD Encounter for other general examination 07/25/2024 Lab Requisition [facility] Lab [address] [place] [address] Mayo Donnelly MD Encounter for other general examination 07/24/2024 Lab Requisition [facility] Lab [address] [place] [address] Mayo Donnelly MD Encounter for other general examination 07/21/2024 Lab Requisition [facility] Lab [address] [place] [phone] Mayo Donnelly MD Encounter for other general examination 07/16/2024 Lab Requisition [facility] Lab [address] [place] [phone] Mayo Donnelly MD Encounter for other general [...] Medical History Date Comments 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 Forbes is GI Hyperlipidemia 01/26/2011 DX:Hyperlipidemi a Cough variant asthma 01/26/2011 DX:Cough va riant asthma Osteopenia 01/26/2011 DX:Osteopenia Diastolic dysfunction 01/26/2011 DX:Diastol ic dysfunction LBP (low back pain) 01/26/2011 DX:LBP (low back pain); COMMENT: dr. logan, no intervention, Dr. 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[facility]) 11/28/2012 DX:Diabetes shelton itus type 2 with neurological manifestations ([facility]); COMMENT: PMH of carpal tunnel Type 2 diabetes mellitus wit h cataract 03/25/2015 DX:Type 2 diabetes mellitus with cataract ([facility]); COMMENT: Cataracts Parkinson disease ([facility]) 10/16/2015 DX:P arkinson disease ([facility]) Closed fracture of right dis sona radius [...] (Age mid 70's) 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 WBC 11.1(H) 4.8 - 10.8 K/mcL LAB HEMETOLOGY METHOD 08/01/2024 10:45 AM EST [facility] RBC 3.80 3.80 - 4.80 M/mcL LAB HEMETOLOGY METHOD 08/01/2024 10:45 AM [facility] LAB Hemoglobin 9.3(L) 11.5 - 16.0 g/dL LAB HEMETOLOGY METHOD 08/01/2024 10:45 AM [facility] LAB Hematocrit 30.6(L) 35.0 - 47.0 % LAB HEMETOLOGY METHOD 08/01/2024 10:45 AM [facility] LAB MCV 81.4 79.0 - 98.0 FL LAB HEMETOLOGY METHOD 08/01/2024 10:45 AM [facility] LAB MCH 24.7(L) 27.0 - 32.0 pcg LAB HEMETOLOGY METHOD 08/01/2024 10:45 AM [facility] LAB MCHC 30.4(L) 32.0 - 37.0 g/dL LAB HEMETOLOGY METHOD 08/01/2024 10:45 AM [facility] LAB RDW 16.0(H) 11.0 - 15.0 % LAB HEMETOLOGY METHOD 08/01/2024 10:45 AM [facility] LAB Platelets 327 130 - 400 K/mcL LAB HEMETOLOGY METHOD 08/01/2024 10:45 AM [facility] LAB MPV 10.4 7.0 - 11.0 FL LAB HEMETOLOGY METHOD 08/01/2024 10:45 AM [facility] LAB NRBC 0.0 <1.0 % LAB HEMETOLOGY METHOD 08/01/2024 10:45 AM [facility] LAB NRBC Absolute 0.00 <0.10 K/mcL LAB HEMETOLOGY METHOD 08/01/2024 10:45 AM [facility] LAB Blood Venous blood specimen / Unknown Venipuncture / Unknown 08/01/2024 4:56 AM EST 08/01/2024 9:34 AM EST us Mayo Donnelly MD LAB BLOOD ORDERABLES Final Res ult [facility] LAB [address] [place] [address], * (ABNORMAL) Comprehensive metabolic panel (08/01/2024 4:56 AM EST) Only the most recent of5 resultswithin the time period is included. Sodium 136 133 - 145 mmol/L LAB CHEMISTRY METHOD 08/01/2024 11:16 AM [facility] LAB Potassium 5.5 3.5 - 5.5 mmol/L LAB CHEMISTRY METHOD 08/01/2024 11:16 AM [facility] LAB Chloride 105 96 - 110 mmol/L LAB CHEMISTRY METHOD 08/01/2024 11:16 AM [facility] LAB CO2 26 21 - 32 mmol/L LAB CHEMISTRY METHOD 08/01/2024 11:16 AM [facility] Anion Gap 5 3 - 11 LAB CHEMISTRY METHOD 08/01/2024 11:16 AM [facility] Glucose 83 70 - 100 mg/dL LAB CHEMISTRY METHOD 08/01/2024 11:16 AM [facility] BUN 44(H) 5 - 25 mg/dL LAB CHEMISTRY METHOD 08/01/2024 11:16 AM [facility] LAB Creatinine 1.15(H) 0.50 - 1.10 mg/dL LAB CHEMISTRY METHOD 08/01/2024 11:16 AM [facility] LAB eGFR 49(L) >=60 mL/min/1. 73m2 LAB CHEMISTRY METHOD 08/01/2024 11:16 AM [facility] LAB Comment:Calculation based on the??Chronic Kidney Disease Epidemiology Collaboration (CKD-EPI) equation refit??without adjustment for race. BUN/Creatinine Ratio 38.3 LAB CHEMISTRY METHOD 08/01/2024 11:16 AM [facility] LAB Calcium 9.3 8.5 - 10.5 mg/dL LAB CHEMISTRY METHOD 08/01/2024 11:16 AM [facility] LAB AST (SGOT) 23 10 - 42 unit/L LAB CHEMISTRY METHOD 08/01/2024 11:16 AM [facility] LAB ALT (SGPT) 17 10 - 60 unit/L LAB CHEMISTRY METHOD 08/01/2024 11:16 AM [facility] Alkaline Phosphatase 67 42 - 121 unit/L LAB CHEMISTRY METHOD 08/01/2024 11:16 AM [facility] Total Protein 6.6 6.0 - 8.0 g/dL LAB CHEMISTRY METHOD 08/01/2024 11:16 AM [facility] Albumin 3.4 3.2 - 5.0 g/dL LAB CHEMISTRY METHOD 08/01/2024 11:16 AM [facility] Total Bilirubin 0.3 0.0 - 1.4 mg/dL LAB CHEMISTRY METHOD 08/01/2024 11:16 AM [facility] LAB Blood Venous blood specimen / Unknown Venipuncture / Unknown 08/01/2024 4:56 AM EST 08/01/2024 9:34 AM EST us Mayo Donnelly MD LAB BLOOD ORDERABLES Final Res ult [facility] LAB [address] [place] [address], * (ABNORMAL) Urinalysis with reflex microscopic and culture (07/25/2024 6:02 PM EST) Specific [place] Urine 1.025 1.003 - 1.030 LAB URINALYSIS - AUTOMATED METHOD 07/26/2024 12:32 PM [facility] pH, Urine 6.5 5.0 - 8.0 pH LAB URINALYSIS - AUTOMATED METHOD 07/26/2024 12:32 PM [facility] Leukocytes, Urine Small(A) Negative LAB URINALYSIS - AUTOMATED METHOD 07/26/2024 12:32 PM [facility] Nitrite, Urine Positive(A) Negative LAB URINALYSIS - AUTOMATED METHOD 07/26/2024 12:32 PM [facility] Protein, Urine >=300(A) <=Trace mg/dL LAB URINALYSIS - AUTOMATED METHOD 07/26/2024 12:32 PM [facility] Glucose, Urine Negative Negative mg/dL LAB URINALYSIS - AUTOMATED METHOD 07/26/2024 12:32 PM [facility] Ketones, Urine Negative Negative mg/dL LAB URINALYSIS - AUTOMATED METHOD 07/26/2024 12:32 PM [facility] Urobilinogen , Urine 0.2 0.2 - 1.0 mg/dL LAB URINALYSIS - AUTOMATED METHOD 07/26/2024 12:32 PM [facility] Bilirubin, Urine Negative Negative LAB URINALYSIS - AUTOMATED METHOD 07/26/2024 12:32 PM [facility] Blood, Urine Large(A) Negative LAB URINALYSIS - AUTOMATED METHOD 07/26/2024 12:32 PM [facility] RBC, Urine >200 /HPF 07/26/2024 12:32 PM [facility] WBC, Urine 15 /HPF 07/26/2024 12:32 PM [facility] Bacteria, Urine 2+(A) (none) /HPF 07/26/2024 12:32 PM [facility] Urine Urine specimen obtained by clean catch procedure / Unknown 07/25/2024 6:02 PM EST 07/26/2024 11:14 AM EST us Mayo Donnelly MD LAB URINE ORDERABLES Final Res ult [facility] LAB [address] [place] [address], [place] [phone] * Ceron urine culture tube (07/25/2024 6:02 [...] MD LAB URINE ORDERABLES Final Res ult [facility] [address] [place] [address], [place] [phone] * (ABNORMAL) Culture urine (07/25/2024 6:02 PM [...] 6:02 PM EST 07/26/2024 12:32 PM EST [facility] LAB - 07/29/2024 8:22 AM EST [...] MICROBIOLOGY - GENERAL ORD ERABLES Final Result [facility] [address] [place] [address], * (ABNORMAL) Basic metabolic panel (07/25/2024 4:31 [...] AM EST [facility] CO2 16(L) 21 - 32 mmol/L LAB CHEMISTRY METHOD 07/25/2024 11:01 AM [facility] Anion Gap 8 3 - 11 LAB CHEMISTRY METHOD 07/25/2024 11:01 AM [facility] Glucose 85 70 - 100 mg/dL LAB CHEMISTRY METHOD 07/25/2024 11:01 AM [facility] BUN 66(H) 5 - 25 mg/dL LAB CHEMISTRY METHOD 07/25/2024 11:01 AM [facility] Creatinine 1.20(H) 0.50 - 1.10 mg/dL LAB CHEMISTRY METHOD 07/25/2024 11:01 AM [facility] eGFR 47(L) >=60 mL/min/1. 73m2 LAB CHEMISTRY METHOD 07/25/2024 11:01 AM [facility] Comment:Calculation based on the??Chronic Kidney Disease Epidemiology Collaboration (CKD-EPI) equation refit??without adjustment for race. BUN/Creatinine Ratio 55.0 LAB CHEMISTRY METHOD 07/25/2024 11:01 AM [facility] Calcium 9.2 8.5 - 10.5 mg/dL LAB CHEMISTRY METHOD 07/25/2024 11:01 AM [facility] Blood Venous blood specimen / Unknown Venipuncture / Unknown 07/25/2024 4:31 AM EST 07/25/2024 9:59 AM EST us Mayo Donnelly MD LAB BLOOD ORDERABLES Final Res ult [facility] LAB [address] [place] [address], * (ABNORMAL) Urinalysis with reflex microscopic (07/24/2024 6:55 PM EST) Specific [place] Urine 1.025 1.003 - 1.030 LAB URINALYSIS [...] 6:55 PM EST 07/25/2024 10:05 AM EST us Mayo Donnelly MD LAB URINE ORDERABLES Final Res ult [facility] [address] [place] [address], [place] [phone] * (ABNORMAL) CBC auto differential (07/16/2024 5:30 AM EST) WBC 5.8 4.8 - 10.8 K/mcL LAB HEMETOLOGY METHOD 07/16/2024 10:35 AM [facility] LAB RBC 3.80 3.80 - 4.80 M/mcL LAB HEMETOLOGY METHOD 07/16/2024 10:35 AM [facility] LAB Hemoglobin 9.2(L) 11.5 - 16.0 g/dL LAB HEMETOLOGY METHOD 07/16/2024 10:35 AM [facility] LAB Hematocrit 30.8(L) 35.0 - 47.0 % LAB HEMETOLOGY METHOD 07/16/2024 10:35 AM [facility] LAB MCV 80.8 79.0 - 98.0 FL LAB HEMETOLOGY METHOD 07/16/2024 10:35 AM [facility] LAB MCH 24.1(L) 27.0 - 32.0 pcg LAB HEMETOLOGY METHOD 07/16/2024 10:35 AM [facility] LAB MCHC 29.9(L) 32.0 - 37.0 g/dL LAB HEMETOLOGY METHOD 07/16/2024 10:35 AM [facility] LAB RDW 14.9 11.0 - 15.0 % LAB HEMETOLOGY METHOD 07/16/2024 10:35 AM [facility] LAB Platelets 247 130 - 400 K/mcL LAB HEMETOLOGY METHOD 07/16/2024 10:35 AM [facility] LAB MPV 10.8 7.0 - 11.0 FL LAB HEMETOLOGY METHOD 07/16/2024 10:35 AM [facility] LAB NRBC 0.0 <1.0 % LAB HEMETOLOGY METHOD 07/16/2024 10:35 AM [facility] LAB NRBC Absolute 0.00 <0.10 K/mcL LAB HEMETOLOGY METHOD 07/16/2024 10:35 AM [facility] Neutrophils Relative 69.6 % LAB HEMETOLOGY METHOD 07/16/2024 10:35 AM [facility] Lymphocytes Relative 16.7 % LAB HEMETOLOGY METHOD 07/16/2024 10:35 AM [facility] Monocytes Relative 10.1 % LAB HEMETOLOGY METHOD 07/16/2024 10:35 AM [facility] Eosinophils Relative 3.1 % LAB HEMETOLOGY METHOD 07/16/2024 10:35 AM [facility] Basophils Relative 0.2 % LAB HEMETOLOGY METHOD 07/16/2024 10:35 AM [facility] Immature Granulocytes Relative 0.3 % LAB HEMETOLOGY METHOD 07/16/2024 10:35 AM [facility] Neutrophils Absolute 4.01 1.50 - 7.00 K/mcL LAB HEMETOLOGY METHOD 07/16/2024 10:35 AM [facility] Lymphocytes Absolute 0.96(L) 1.00 - 5.00 K/mcL LAB HEMETOLOGY METHOD 07/16/2024 10:35 AM EST [facility] LAB Monocytes Absolute 0.58 0.20 - 1.00 K/[facility] LAB HEMETOLOGY METHOD 07/16/2024 10:35 AM EST [facility] LAB Eosinophils Absolute 0.18 0.00 - 0.50 K/[facility] LAB HEMETOLOGY METHOD 07/16/2024 10:35 AM EST [facility] LAB Basophils Absolute 0.01 0.00 - 0.20 K/[facility] LAB HEMETOLOGY METHOD 07/16/2024 10:35 AM EST [facility] LAB Immature Granulocytes Absolute 0.02 0.00 - 0.03 K/[facility] LAB HEMETOLOGY METHOD 07/16/2024 10:35 AM EST [facility] LAB Blood Venous blood specimen / Unknown Venipuncture / Unknown 07/16/2024 5:30 AM EST 07/16/2024 9:10 AM EST Mayo Donnelly MD LAB BLOOD ORDERABLES Final Res ult Performing Organization Address City/[facility]/ZIP Co de Phone Number [facility] LAB [address] [place] [address], [place] [phone] * (ABNORMAL) Magnesium (07/16/2024 5:30 AM EST) Magnesium 1.6(L) 1.9 - 2.6 mg/dL LAB CHEMISTRY METHOD 07/16/2024 10:49 AM EST [facility] LAB Blood Venous blood specimen / Unknown Venipuncture / Unknown 07/16/2024 5:30 AM EST 07/16/2024 9:10 AM EST Mayo Donnelly MD LAB BLOOD ORDERABLES Final Res ult [facility] [address] [place] [address], [place] [phone] * SCREENING MAMMOGRAPHY BI 2-VIEW BREAST INC [...] negative Meghan Hicks MD IMG XR PROCEDURES Final Re sult from Last 3 Months or Most Recently Relevant to Health Maintenance Advance Directives Documents on File Type Date Recorded Patient Police Superintendent Expl anation Health Care Decision (hx) 07/13/2012 AD RAYGOZA DIRECTIVE Health Care Decision (hx) 07/13/2012 AD RAYGOZA DIRECTIVE Health Care Decision (hx) 07/13/2012 AD RAYGOZA DIRECTIVE Health Care Decision (hx) 07/13/2012 AD RAYGOZA DIRECTIVE Care Teams Recoating Machine Operator Relationship Specialty Start Date End Date Andree Lindquist MD PCP - General Internal Medicine 03/19/22
--- OUTSIDE RECORDS SUMMARY | 2024-10-09 17:44 | XMS_ITS | Encounter Summary ---
Author Organization [facility] Address [address] [place] [address] Care Team Providers Care Railcar Carpenter Name Role Phone Andree Lindquist Primary Care Provider [phone] Encounter Details Date Type Department Care Team (Late st Contact Info) Description 07/22/2023 Orders Only [facility] Interventional Radiology [address] [place] [address] Guerlien Vaughn MD [address] [place] [address] Social History Tobacco Use Types Packs/Day Years [...] Description 10/17/2024 8:20 AM EDT Hospital Encounter [facility] Operating [address] [place] [address] Christen Lopes MD [address] [place] [address] 10/17/2024 8:20 AM EDT Anesthesia Event [facility] Operating [address] [place] [address] Kimberley Mack DO [address] [place] [address] 10/17/2024 8:20 AM EDT - 10/17/2024 9:10 AM EDT Surgery [facility] Operating Room [address] [place] [address] Christen Lopes MD [address] [place] [id number] CYSTOURETHROSCOPY WITH CHEMODENERVATION Botox 100 units [63064 (CPT??)] 06/20/2025 10:45 AM EST Follow-Up [facility] [address] [place] [id number] Merchant Banker: Christen Dempsey MD [address] [place] [phone] Scheduled Procedures Name Priority Associated Diagnoses Date/Ti me CYSTOURETHROSCOPY WITH CHEMODENERVATION Urge incontinence 10/17/2024 8:20 AM EDT documented as of this encounter Visit Diagnoses Not on filedocumented in this encounter Care Teams Railcar Carpenter Relationship Specialty Start Date End Date Andree Lindquist PCP - General Family Medicine 03/26/23 documented as of this encounter
--- OUTSIDE RECORDS SUMMARY | 2024-10-09 17:44 | XMS_ITS | Encounter Summary ---
Author Organization [facility] Address [address] [place] [address] Care Team Providers Care Submarine Cable Equipment Technician Name Role Phone Andree Lindquist MD Primary Care Provider [phone] Encounter Details Date Type Department Care Team (Late st Contact Info) Description 08/01/2024 Lab Requisition [facility] Lab [address] [place] [address] Mayo Donnelly MD [address] [place] [id number] Encounter for other general examination Social History [...] AM EST) WBC 11.1(H) 4.8 - 10.8 K/[facility] LAB HEMETOLOGY METHOD 08/01/2024 10:45 AM [facility] LAB RBC 3.80 3.80 - 4.80 M/mcL LAB HEMETOLOGY METHOD 08/01/2024 10:45 AM [facility] LAB Hemoglobin 9.3(L) 11.5 - 16.0 g/dL LAB HEMETOLOGY METHOD 08/01/2024 10:45 AM [facility] LAB Hematocrit 30.6(L) 35.0 - 47.0 % LAB HEMETOLOGY METHOD 08/01/2024 10:45 AM [facility] LAB MCV 81.4 79.0 - 98.0 FL LAB HEMETOLOGY METHOD 08/01/2024 10:45 AM [facility] LAB MCH 24.7(L) 27.0 - 32.0 pcg LAB HEMETOLOGY METHOD 08/01/2024 10:45 AM [facility] LAB MCHC 30.4(L) 32.0 - 37.0 g/dL LAB HEMETOLOGY METHOD 08/01/2024 10:45 AM [facility] LAB RDW 16.0(H) 11.0 - 15.0 % LAB HEMETOLOGY METHOD 08/01/2024 10:45 AM [facility] LAB Platelets 327 130 - 400 K/mcL LAB HEMETOLOGY METHOD 08/01/2024 10:45 AM [facility] LAB MPV 10.4 7.0 - 11.0 FL LAB HEMETOLOGY METHOD 08/01/2024 10:45 AM [facility] LAB NRBC 0.0 <1.0 % LAB HEMETOLOGY METHOD 08/01/2024 10:45 AM [facility] LAB NRBC Absolute 0.00 <0.10 K/mcL LAB HEMETOLOGY METHOD 08/01/2024 10:45 AM [facility] LAB Blood Venous blood specimen / Unknown Venipuncture / Unknown 08/01/2024 4:56 AM EST 08/01/2024 9:34 AM EST us Mayo Donnelly MD LAB BLOOD ORDERABLES Final Res ult [facility] [address] [place] [address], [place] [phone] * (ABNORMAL) Comprehensive metabolic panel (08/01/2024 4:56 AM EST) Sodium 136 133 - 145 mmol/L LAB CHEMISTRY METHOD 08/01/2024 11:16 AM EST [facility] Potassium 5.5 3.5 - 5.5 mmol/L LAB CHEMISTRY METHOD 08/01/2024 11:16 AM [facility] LAB Chloride 105 96 - 110 mmol/L LAB CHEMISTRY METHOD 08/01/2024 11:16 AM [facility] LAB CO2 26 21 - 32 mmol/L LAB CHEMISTRY METHOD 08/01/2024 11:16 AM [facility] Anion Gap 5 3 - 11 LAB CHEMISTRY METHOD 08/01/2024 11:16 AM [facility] Glucose 83 70 - 100 mg/dL LAB CHEMISTRY METHOD 08/01/2024 11:16 AM [facility] BUN 44(H) 5 - 25 mg/dL LAB CHEMISTRY METHOD 08/01/2024 11:16 AM [facility] Creatinine 1.15(H) 0.50 - 1.10 mg/dL LAB CHEMISTRY METHOD 08/01/2024 11:16 AM [facility] LAB eGFR 49(L) >=60 mL/min/1. 73m2 LAB CHEMISTRY METHOD 08/01/2024 11:16 AM [facility] LAB Comment:Calculation based on the??Chronic Kidney Disease Epidemiology Collaboration (CKD-EPI) equation refit??without adjustment for race. BUN/Creatinine Ratio 38.3 LAB CHEMISTRY METHOD 08/01/2024 11:16 AM [facility] Calcium 9.3 8.5 - 10.5 mg/dL LAB CHEMISTRY METHOD 08/01/2024 11:16 AM [facility] AST (SGOT) 23 10 - 42 unit/L LAB CHEMISTRY METHOD 08/01/2024 11:16 AM [facility] ALT (SGPT) 17 10 - 60 unit/L LAB CHEMISTRY METHOD 08/01/2024 11:16 AM [facility] Alkaline Phosphatase 67 42 - 121 unit/L LAB CHEMISTRY METHOD 08/01/2024 11:16 AM [facility] Total Protein 6.6 6.0 - 8.0 g/dL LAB CHEMISTRY METHOD 08/01/2024 11:16 AM [facility] Albumin 3.4 3.2 - 5.0 g/dL LAB CHEMISTRY METHOD 08/01/2024 11:16 AM [facility] Total Bilirubin 0.3 0.0 - 1.4 mg/dL LAB CHEMISTRY METHOD 08/01/2024 11:16 AM [facility] Blood Venous blood specimen / Unknown Venipuncture / Unknown 08/01/2024 4:56 AM EST 08/01/2024 9:34 AM EST us Mayo Donnelly MD LAB BLOOD ORDERABLES Final Res ult [facility] [address] [place] [address], documented in this encounter Visit Diagnoses Diagnosis Encounter for other general examination documented in this encounter Care Teams Submarine Cable Equipment Technician Relationship Specialty Start Date End Date Andree Lindquist MD PCP - General Internal Medicine 03/19/22 documented as of this encounter
--- OUTSIDE RECORDS SUMMARY | 2024-10-09 17:44 | XMS_ITS | Referral Summary ---
Author Organization [facility] Address [address] [place] [address] Care Team Providers Care Marketing Program Manager Name Role Phone Ameena Andree Primary Care Provider [phone] Encounters Date Type Department Care Team Description 10/03/2024 Telephone [facility] [address] [place] [phone] Manager Technical Support: Christen Dempsey MD 10/03/2024 11:30 AM EDT Pre-Admission Testing [facility] [address] [place] [address] Meka Dover NP Urge incontinence (Primary Dx); Pre-op evaluation; Primary hypertension 09/05/2024 myChart Message [facility] [address] [address] Manager Technical Support: Paulette Sierra, [facility] Provider Surgery Wednesday10/17/2024 09/04/2024 Orders Only [facility] [address] [place] [address] Manager Technical Support: Christen Dempsey MD 08/31/2024 Telephone [facility] [address] [place] [address] Manager Technical Support: Christen Dempsey MD Update on pt's. symptoms 08/30/2024 Orders Only [facility] [address] [address] Manager Technical Support: Christen Dempsey MD Acute cystitis with hematuria (Primary Dx) 08/25/2024 1:00 PM EST Pre-Admission Testing [facility] [address] [place] [address] Urge incontinence (Primary Dx); Preoperative testing 08/23/2024 Telephone [facility] [address] [address] Manager Technical Support: Christen Dempsey MD 08/21/2024 Prep for Case [facility] [address] [address] Manager Technical Support: Christen Dempsey MD Urge incontinence (Primary Dx) 08/18/2024 Telephone [facility] [address] [address] Manager Technical Support: Paulette Giordano Telephone Intake, Staff PAC Appt Request - Established 07/24/2024 Orders Only [facility] [address] [address] Manager Technical Support: Christen Dempsey MD Acute cystitis with hematuria (Primary Dx) from Last 3 Months Allergies Active Allergy [...] 1 puff by mouth every morning. 05/19/20 Active LORazepam (ATIVAN) 0.5 mg tablet Take 0.5 mg by mouth every 8 hours as needed. 05/19/20 Active carbidopa-levo dopa (SINEMET) 25-100 mg per tablet Take 2 tablets by mouth 3 times a day. Active Ventolin HFA 90 mcg/actuation inhaler Inhale 2 puffs by mouth every 6 hours as needed. 06/24/20 23 Active ursodioL (ACTIGALL) 300 mg capsule Take [...] Refills, Maintenance, 09/12/24 9:32:00 AM EST 09/13/19 25 Active coQ10, ubiquinol, 200 mg capsule Take 200 mg by mouth. 09/29/19 25 026 Active omega-3s/dha/e pa/fish oil/D3 (VITAMIN-D + OMEGA-3 ORAL) once a week. saturdays09/13/19 25 Active Neurontin 300 mg capsule Take 300 mg by mouth 2 times a day. 02/25/20 25 Active acetaminophen (TYLENOL) 325 mg tablet Take 650 mg by mouth 3 times a day. Active acetaminophen (TYLENOL) 650 mg 8 hr tablet Take 650 mg by mouth every 8 hours as needed. 025 Discontinued Eliquis 5 mg tablet 5 mg every 12 hours. 07/17/19 025 Discontinued gabapentin (NEURONTIN) 100 mg capsule Take 100 mg by mouth 3 times a day. 07/24/19 025 Discontinued levoFLOXacin (LEVAQUIN) 750 mg tablet Take 750 mg by mouth once a day. 08/23/19 025 Discontinued Active Problems Problem Noted Date [...] Description 10/17/2024 8:20 AM EDT Hospital Encounter [facility] [address] [place] [address] Christen Lopes MD [address] [place] [address] 10/17/2024 8:20 AM EDT Anesthesia Event [facility] [address] [place] [address] Kimberley Mack, DO [address] [place] [address] 10/17/2024 8:20 AM EDT - 10/17/2024 9:10 AM EDT Surgery [facility] [address] [place] [address] Christen Lopes MD [address] [place] [address] CYSTOURETHROSCOPY WITH CHEMODENERVATION Botox 100 units [96228 (CPT??)] 06/20/2025 10:45 AM EST Follow-Up [facility] [address] [place] [address] Manager Technical Support: Christen Dempsey MD [address] [place] [address] Scheduled Procedures Name Priority Associated Diagnoses Date/Ti me CYSTOURETHROSCOPY WITH CHEMODENERVATION Urge incontinence 10/17/2024 8:20 AM EDT Procedures * Due to [place] state law, this organization might not be sharing [...] to Health Maintenance Results * Due to [place] state law, this organization might not be sharing negative HIV tests. * Urinalysis, Outside Lab (09/02/2024 9:20 AM EST) us Christen Lopes MD LAB URINE ORDERABLES Final Re sult * LAB - SCANNED (08/29/2024) us Onbase Scan Mindy LAB HISTORICAL RESULTS Final Result * EKG, Outside Results (08/17/2024) Only the most recent of2 resultswithin the time period is included. Anatomical Region Laterality Modality Other 08/17/2024 us Onbase Scan Mindy AMB EXTERNAL RESULT PROCEDURE S Final Result * (ABNORMAL) Basic Metabolic Panel (08/18/2023 4:45 AM EST) NA 137 135 - 145 mmol/L 08/18/2023 6:37 AM EST [facility] K 3.9 3.5 - 5.3 mmol/L 08/18/2023 6:37 AM EST [facility] Cl 106 97 - 110 mmol/L 08/18/2023 6:37 AM EST [facility] CO2 23(L) 24 - 32 mmol/L 08/18/2023 6:37 AM EST [facility] BUN 37(H) 7 - 23 mg/dL 08/18/2023 6:37 AM EST [facility] Creatinine 0.84 0.50 - 1.20 mg/dL 08/18/2023 6:37 AM EST [facility] Glucose 66(L) 70 - 99 mg/dL 08/18/2023 6:37 AM EST [facility] Calcium 8.3(L) 8.7 - 10.7 mg/dL 08/18/2023 6:37 AM EST [facility] Anion Gap 8 5 - 15 08/18/2023 6:37 AM EST [facility] eGFR 73 >=60 mL/min/1. 73m2 08/18/2023 6:37 AM EST [facility] Comment:The estimated glomer [...] MD LAB BLOOD ORDERABLES Final Re sult [facility] [address] [phone], from Last 3 Months or Most Recently Relevant to Health Maintenance Insurance [facility] SUPP Member Subscriber Plan / Payer (Ef fective 2001-Present) Name:Toshia Francine Relation to Subscriber:Self Name:Francine Pope Payer ID:[id number] Type:Not on file Address: [address] [facility] [id number] [place] [id number] MEDICARE Advance Directives * Full Code (Latest Code Status on File) Date Activated Date Inactivated Comments 11/23/2023 8:48 AM 11/23/2023 1:53 PM * Full Code Date Activated Date Inactivated Comments 08/17/2023 10:08 AM 08/18/2023 4:16 PM Healthcare Agents on File Name Relationship Healthcare Agent Relationship Communication Martita Pope Daughter Health Care Agent [email or web address] Care Teams Marketing Program Manager Relationship Specialty Start Date End Date Andree Lindquist PCP - General Family Medicine 03/26/23
--- OUTSIDE RECORDS SUMMARY | 2024-10-09 17:44 | XMS_ITS | Encounter Summary ---
Author Organization [facility] Address [address] [place] [address] Care Team Providers Care Dental Floss Packer Name Role Phone Andree Lindquist Primary Care Provider [phone] Encounter Details Date Type Department Care Team (Late st Contact Info) Description 09/05/2024 [employer] Message [facility] [address] [place] [address] Library Sales Consultant: Paulette Sierra, Generic Provider [address] [place], [place] [phone] Surgery Wednesday10/17/2024 Social History Tobacco Use Types Packs/Day Years [...] Description 10/17/2024 8:20 AM EDT Hospital Encounter [facility] [address] [place] [address] Christen Lopes MD [address] [place] [address] 10/17/2024 8:20 AM EDT Anesthesia Event [facility] [address] [place] [address] Kimberley Mack DO [address] [place] [address] 10/17/2024 8:20 AM EDT - 10/17/2024 9:10 AM EDT Surgery [facility] [address] [place] [address] Christen Lopes MD [address] [place] [address] CYSTOURETHROSCOPY WITH CHEMODENERVATION Botox 100 units [77526 (CPT??)] 06/20/2025 10:45 AM EST Follow-Up [facility] [address] [place] [address] Library Sales Consultant: Christen Dempsey MD [address] [place] [address] Scheduled Procedures Name Priority Associated Diagnoses Date/Ti me CYSTOURETHROSCOPY WITH CHEMODENERVATION Urge incontinence 10/17/2024 8:20 AM EDT documented as of this encounter Visit Diagnoses Not on filedocumented in this encounter Care Teams Dental Floss Packer Relationship Specialty Start Date End Date Ameena Andree PCP - General Family Medicine 03/26/23 documented as of this encounter
--- OUTSIDE RECORDS SUMMARY | 2024-10-09 17:44 | XMS_ITS | Encounter Summary ---
Author Organization [facility] Address [address] [place] [address] Care Team Providers Care Colorist Formulator Name Role Phone Andree Lindquist MD Primary Care Provider [phone] Encounter Details Date Type Department Care Team (Late st Contact Info) Description 07/25/2024 Lab Requisition [facility] - Main Lab [address] [facility] [place] [address] Mayo Donnelly MD [address] [place] [address] Encounter for other general examination Social History [...] reflex microscopic (07/24/2024 6:55 PM EST) Specific [place] Urine 1.025 1.003 - 1.030 LAB URINALYSIS [...] ORDERABLES Final Res ult Performing Organization Address [facility]/ZIP Co de Phone Number [facility] [address] [place] [address], [place] [phone] * Ceron urine culture tube (07/24/2024 6:55 PM EST) Extra Tube Hold for add-ons. 07/25/2024 12:01 PM [facility] Comment:Auto resulted. Urine Urine specimen obtained by clean catch procedure / Unknown Non-blood Collection / Unknown 07/24/2024 6:55 PM EST 07/25/2024 10:05 AM EST us Mayo Donnelly MD LAB URINE ORDERABLES Final Res ult Performing Organization Address [facility]/ZIP Co de Phone Number [facility] [address] [place] [address], [place] [phone] documented in this encounter Visit Diagnoses Diagnosis Encounter for other general examination documented in this encounter Care Teams Colorist Formulator Relationship Specialty Start Date End Date Andree Lindquist MD PCP - General Internal Medicine 03/19/22 documented as of this encounter
--- OUTSIDE RECORDS SUMMARY | 2024-10-09 17:44 | XMS_ITS | Encounter Summary ---
Author Organization [facility] Address [address] [place] [address] Care Team Providers Care Television News Photographer Name Role Phone Andree Lindquist MD Primary Care Provider [phone] Encounter Details Date Type Department Care Team (Late st Contact Info) Description 07/21/2024 Lab Requisition [facility] - Main Lab [address] [place] [address] Mayo Donnelly MD [address] [place] [address] Encounter for other general examination Social History [...] AM EST) WBC 6.6 4.8 - 10.8 /[facility] LAB HEMETOLOGY METHOD 07/21/2024 8:01 AM [facility] RBC 3.90 3.80 - 4.80 M/mcL LAB HEMETOLOGY METHOD 07/21/2024 8:01 AM [facility] Hemoglobin 9.4(L) 11.5 - 16.0 g/dL LAB HEMETOLOGY METHOD 07/21/2024 8:01 AM [facility] Hematocrit 31.3(L) 35.0 - 47.0 % LAB HEMETOLOGY METHOD 07/21/2024 8:01 AM [facility] MCV 80.3 79.0 - 98.0 FL LAB HEMETOLOGY METHOD 07/21/2024 8:01 AM [facility] MCH 24.1(L) 27.0 - 32.0 pcg LAB HEMETOLOGY METHOD 07/21/2024 8:01 AM [facility] MCHC 30.0(L) 32.0 - 37.0 g/dL LAB HEMETOLOGY METHOD 07/21/2024 8:01 AM [facility] RDW 15.4(H) 11.0 - 15.0 % LAB HEMETOLOGY METHOD 07/21/2024 8:01 AM [facility] Platelets 281 130 - 400 K/mcL LAB HEMETOLOGY METHOD 07/21/2024 8:01 AM [facility] MPV 10.5 7.0 - 11.0 FL LAB HEMETOLOGY METHOD 07/21/2024 8:01 AM [facility] NRBC 0.0 <1.0 % LAB HEMETOLOGY METHOD 07/21/2024 8:01 AM [facility] NRBC Absolute 0.00 <0.10 K/mcL LAB HEMETOLOGY METHOD 07/21/2024 8:01 AM [facility] Blood Venous blood specimen / Unknown Venipuncture / Unknown 07/21/2024 5:00 AM EST 07/21/2024 7:36 AM EST us Mayo Donnelly MD LAB BLOOD ORDERABLES Final Res ult [facility] [address] [place] [address], [place] [phone] * (ABNORMAL) Comprehensive metabolic panel (07/21/2024 5:00 AM EST) Sodium 133 133 - 145 mmol/L LAB CHEMISTRY METHOD 07/21/2024 8:49 AM [facility] Potassium 5.5 3.5 - 5.5 mmol/L LAB CHEMISTRY METHOD 07/21/2024 8:49 AM [facility] Chloride 103 96 - 110 mmol/L LAB CHEMISTRY METHOD 07/21/2024 8:49 AM [facility] CO2 24 21 - 32 mmol/L LAB CHEMISTRY METHOD 07/21/2024 8:49 AM [facility] Anion Gap 6 3 - 11 LAB CHEMISTRY METHOD 07/21/2024 8:49 AM [facility] Glucose 103(H) 70 - 100 mg/dL LAB CHEMISTRY METHOD 07/21/2024 8:49 AM [facility] BUN 54(H) 5 - 25 mg/dL LAB CHEMISTRY METHOD 07/21/2024 8:49 AM [facility] Comment:Results verified by repeat testing Creatinine 1.34(H) 0.50 - 1.10 mg/dL LAB CHEMISTRY METHOD 07/21/2024 8:49 AM [facility] eGFR 41(L) >=60 mL/min/1. 73m2 LAB CHEMISTRY METHOD 07/21/2024 8:49 AM [facility] Comment:Calculation based on the??Chronic Kidney Disease Epidemiology Collaboration (CKD-EPI) equation refit??without adjustment for race. BUN/Creatinine Ratio 40.3 LAB CHEMISTRY METHOD 07/21/2024 8:49 AM [facility] Calcium 9.8 8.5 - 10.5 mg/dL LAB CHEMISTRY METHOD 07/21/2024 8:49 AM [facility] AST (SGOT) 19 10 - 42 unit/L LAB CHEMISTRY METHOD 07/21/2024 8:49 AM [facility] ALT (SGPT) 16 10 - 60 unit/L LAB CHEMISTRY METHOD 07/21/2024 8:49 AM [facility] Alkaline Phosphatase 68 42 - 121 unit/L LAB CHEMISTRY METHOD 07/21/2024 8:49 AM [facility] Total Protein 6.8 6.0 - 8.0 g/dL LAB CHEMISTRY METHOD 07/21/2024 8:49 AM [facility] Albumin 3.5 3.2 - 5.0 g/dL LAB CHEMISTRY METHOD 07/21/2024 8:49 AM [facility] Total Bilirubin 0.3 0.0 - 1.4 mg/dL LAB CHEMISTRY METHOD 07/21/2024 8:49 AM [facility] Blood Venous blood specimen / Unknown Venipuncture / Unknown 07/21/2024 5:00 AM EST 07/21/2024 7:36 AM EST us Mayo Donnelly MD LAB BLOOD ORDERABLES Final Res ult [facility] [address] [place] [address], documented in this encounter Visit Diagnoses Diagnosis Encounter for other general examination documented in this encounter Care Teams Television News Photographer Relationship Specialty Start Date End Date Andree Lindquist MD PCP - General Internal Medicine 03/19/22 documented as of this encounter
--- OUTSIDE RECORDS SUMMARY | 2024-10-09 17:44 | XMS_ITS | Encounter Summary ---
Author Organization [facility] Address [address] [place] [address] Care Team Providers Care Emergency Management Coordinator Name Role Phone Andree Lindquist MD Primary Care Provider [phone] Encounter Details Date Type Department Care Team (Late st Contact Info) Description 07/24/2024 Lab Requisition [facility] - Main Lab [address] [place] [address] Mayo Donnelly MD [address] [place] [address] Encounter for other general examination Social History [...] AM EST) WBC 6.4 4.8 - 10.8 /[facility] LAB HEMETOLOGY METHOD 07/24/2024 11:31 AM [facility] RBC 3.90 3.80 - 4.80 M/mcL LAB HEMETOLOGY METHOD 07/24/2024 11:31 AM [facility] Hemoglobin 9.4(L) 11.5 - 16.0 g/dL LAB HEMETOLOGY METHOD 07/24/2024 11:31 AM [facility] Hematocrit 31.7(L) 35.0 - 47.0 % LAB HEMETOLOGY METHOD 07/24/2024 11:31 AM [facility] MCV 81.1 79.0 - 98.0 FL LAB HEMETOLOGY METHOD 07/24/2024 11:31 AM [facility] MCH 24.0(L) 27.0 - 32.0 pcg LAB HEMETOLOGY METHOD 07/24/2024 11:31 AM [facility] MCHC 29.7(L) 32.0 - 37.0 g/dL LAB HEMETOLOGY METHOD 07/24/2024 11:31 AM [facility] RDW 15.5(H) 11.0 - 15.0 % LAB HEMETOLOGY METHOD 07/24/2024 11:31 AM [facility] Platelets 315 130 - 400 K/mcL LAB HEMETOLOGY METHOD 07/24/2024 11:31 AM [facility] MPV 10.5 7.0 - 11.0 FL LAB HEMETOLOGY METHOD 07/24/2024 11:31 AM [facility] NRBC 0.0 <1.0 % LAB HEMETOLOGY METHOD 07/24/2024 11:31 AM [facility] NRBC Absolute 0.00 <0.10 K/mcL LAB HEMETOLOGY METHOD 07/24/2024 11:31 AM [facility] Blood Venous blood specimen / Unknown Venipuncture / Unknown 07/24/2024 5:17 AM EST 07/24/2024 10:19 AM EST us Mayo Donnelly MD LAB BLOOD ORDERABLES Final Res ult [facility] [address] [place] [address], [place] [phone] * (ABNORMAL) Comprehensive metabolic panel (07/24/2024 5:17 AM EST) Sodium 132(L) 133 - 145 mmol/L LAB CHEMISTRY METHOD 07/24/2024 12:19 PM [facility] Potassium 5.7(H) 3.5 - 5.5 mmol/L LAB CHEMISTRY METHOD 07/24/2024 12:19 PM [facility] Chloride 108 96 - 110 mmol/L LAB CHEMISTRY METHOD 07/24/2024 12:19 PM [facility] CO2 18(L) 21 - 32 mmol/L LAB CHEMISTRY METHOD 07/24/2024 12:19 PM [facility] Anion Gap 6 3 - 11 LAB CHEMISTRY METHOD 07/24/2024 12:19 PM [facility] Glucose 90 70 - 100 mg/dL LAB CHEMISTRY METHOD 07/24/2024 12:19 PM [facility] BUN 74(H) 5 - 25 mg/dL LAB CHEMISTRY METHOD 07/24/2024 12:19 PM [facility] Creatinine 1.54(H) 0.50 - 1.10 mg/dL LAB CHEMISTRY METHOD 07/24/2024 12:19 PM [facility] eGFR 35(L) >=60 mL/min/1. 73m2 LAB CHEMISTRY METHOD 07/24/2024 12:19 PM [facility] Comment:Calculation based on the??Chronic Kidney Disease Epidemiology Collaboration (CKD-EPI) equation refit??without adjustment for race. BUN/Creatinine Ratio 48.1 LAB CHEMISTRY METHOD 07/24/2024 12:19 PM [facility] Calcium 9.3 8.5 - 10.5 mg/dL LAB CHEMISTRY METHOD 07/24/2024 12:19 PM [facility] AST (SGOT) 20 10 - 42 unit/L LAB CHEMISTRY METHOD 07/24/2024 12:19 PM [facility] ALT (SGPT) 15 10 - 60 unit/L LAB CHEMISTRY METHOD 07/24/2024 12:19 PM [facility] Alkaline Phosphatase 72 42 - 121 unit/L LAB CHEMISTRY METHOD 07/24/2024 12:19 PM [facility] Total Protein 6.7 6.0 - 8.0 g/dL LAB CHEMISTRY METHOD 07/24/2024 12:19 PM [facility] Albumin 3.6 3.2 - 5.0 g/dL LAB CHEMISTRY METHOD 07/24/2024 12:19 PM [facility] Total Bilirubin 0.3 0.0 - 1.4 mg/dL LAB CHEMISTRY METHOD 07/24/2024 12:19 PM [facility] Blood Venous blood specimen / Unknown Venipuncture / Unknown 07/24/2024 5:17 AM EST 07/24/2024 10:19 AM EST us Mayo Donnelly MD LAB BLOOD ORDERABLES Final Res ult [facility] [address] [place] [address], documented in this encounter Visit Diagnoses Diagnosis Encounter for other general examination documented in this encounter Care Teams Emergency Management Coordinator Relationship Specialty Start Date End Date Andree Lindquist MD PCP - General Internal Medicine 03/19/22 documented as of this encounter
--- OUTSIDE RECORDS SUMMARY | 2024-10-09 17:44 | XMS_ITS | Encounter Summary ---
Author Organization [facility] Address [address] [place] [address] Care Team Providers Care Desk Officer Name Role Phone Andree Lindquist MD Primary Care Provider [phone] Encounter Details Date Type Department Care Team ([facility] st Contact Info) Description 07/16/2024 Lab Requisition [facility] - Main Lab 299 [facility] [place] [address] Mayo Donnelly MD [address] [place] [address] Encounter for other general examination Social History [...] Magnesium (07/16/2024 5:30 AM EST) Pathologist [facility] Magnesium 1.6(L) 1.9 - 2.6 mg/dL LAB CHEMISTRY METHOD 07/16/2024 10:49 AM EST [facility] LAB Blood Venous blood specimen / Unknown Venipuncture / Unknown 07/16/2024 5:30 AM EST 07/16/2024 9:10 AM EST us Mayo Donnelly MD LAB BLOOD ORDERABLES Final Res ult [facility] LAB [address] [place] [address], [place] [phone] * (ABNORMAL) CBC auto differential (07/16/2024 5:30 AM EST) [facility] WBC 5.8 4.8 - 10.8 K/mcL LAB HEMETOLOGY METHOD 07/16/2024 10:35 AM [facility] LAB RBC 3.80 3.80 - 4.80 M/mcL LAB HEMETOLOGY METHOD 07/16/2024 10:35 AM [facility] LAB Hemoglobin 9.2(L) 11.5 - 16.0 g/dL LAB HEMETOLOGY METHOD 07/16/2024 10:35 AM [facility] LAB Hematocrit 30.8(L) 35.0 - 47.0 % LAB HEMETOLOGY METHOD 07/16/2024 10:35 AM [facility] LAB MCV 80.8 79.0 - 98.0 FL LAB HEMETOLOGY METHOD 07/16/2024 10:35 AM [facility] LAB MCH 24.1(L) 27.0 - 32.0 pcg LAB HEMETOLOGY METHOD 07/16/2024 10:35 AM [facility] LAB MCHC 29.9(L) 32.0 - 37.0 g/dL LAB HEMETOLOGY METHOD 07/16/2024 10:35 AM [facility] LAB RDW 14.9 11.0 - 15.0 % LAB HEMETOLOGY METHOD 07/16/2024 10:35 AM [facility] LAB Platelets 247 130 - 400 K/mcL LAB HEMETOLOGY METHOD 07/16/2024 10:35 AM [facility] LAB MPV 10.8 7.0 - 11.0 FL LAB HEMETOLOGY METHOD 07/16/2024 10:35 AM [facility] LAB NRBC 0.0 <1.0 % LAB HEMETOLOGY METHOD 07/16/2024 10:35 AM [facility] LAB NRBC Absolute 0.00 <0.10 K/mcL LAB HEMETOLOGY METHOD 07/16/2024 10:35 AM [facility] LAB Neutrophils Relative 69.6 % LAB HEMETOLOGY METHOD 07/16/2024 10:35 AM [facility] LAB Lymphocytes Relative 16.7 % LAB HEMETOLOGY METHOD 07/16/2024 10:35 AM [facility] Monocytes Relative 10.1 % LAB HEMETOLOGY METHOD 07/16/2024 10:35 AM [facility] LAB Eosinophils Relative 3.1 % LAB HEMETOLOGY METHOD 07/16/2024 10:35 AM [facility] Basophils Relative 0.2 % LAB HEMETOLOGY METHOD 07/16/2024 10:35 AM [facility] LAB Immature Granulocytes Relative 0.3 % LAB HEMETOLOGY METHOD 07/16/2024 10:35 AM [facility] LAB Neutrophils Absolute 4.01 1.50 - 7.00 K/mcL LAB HEMETOLOGY METHOD 07/16/2024 10:35 AM [facility] LAB Lymphocytes Absolute 0.96(L) 1.00 - 5.00 K/mcL LAB HEMETOLOGY METHOD 07/16/2024 10:35 AM EST [facility] LAB Monocytes Absolute 0.58 0.20 - 1.00 K/[facility] LAB HEMETOLOGY METHOD 07/16/2024 10:35 AM [facility] LAB Eosinophils Absolute 0.18 0.00 - 0.50 K/[facility] LAB HEMETOLOGY METHOD 07/16/2024 10:35 AM [facility] LAB Basophils Absolute 0.01 0.00 - 0.20 K/[facility] LAB HEMETOLOGY METHOD 07/16/2024 10:35 AM [facility] LAB Immature Granulocytes Absolute 0.02 0.00 - 0.03 K/[facility] LAB HEMETOLOGY METHOD 07/16/2024 10:35 AM [facility] LAB Blood Venous blood specimen / Unknown Venipuncture / Unknown 07/16/2024 5:30 AM EST 07/16/2024 9:10 AM EST us Mayo Donnelly MD LAB BLOOD ORDERABLES Final Res ult [facility] LAB [address] [place] [address], * (ABNORMAL) Comprehensive metabolic panel (07/16/2024 5:30 AM EST) Sodium 133 133 - 145 mmol/L LAB CHEMISTRY METHOD 07/16/2024 10:49 AM [facility] LAB Potassium 4.6 3.5 - 5.5 mmol/L LAB CHEMISTRY METHOD 07/16/2024 10:49 AM [facility] LAB Chloride 103 96 - 110 mmol/L LAB CHEMISTRY METHOD 07/16/2024 10:49 AM [facility] LAB CO2 24 21 - 32 mmol/L LAB CHEMISTRY METHOD 07/16/2024 10:49 AM [facility] LAB Anion Gap 6 3 - 11 LAB CHEMISTRY METHOD 07/16/2024 10:49 AM [facility] LAB Glucose 125(H) 70 - 100 mg/dL LAB CHEMISTRY METHOD 07/16/2024 10:49 AM [facility] BUN 33(H) 5 - 25 mg/dL LAB CHEMISTRY METHOD 07/16/2024 10:49 AM [facility] LAB Creatinine 1.13(H) 0.50 - 1.10 mg/dL LAB CHEMISTRY METHOD 07/16/2024 10:49 AM [facility] LAB eGFR 51(L) >=60 mL/min/1. 73m2 LAB CHEMISTRY METHOD 07/16/2024 10:49 AM [facility] LAB Comment:Calculation based on the??Chronic Kidney Disease Epidemiology Collaboration (CKD-EPI) equation refit??without adjustment for race. BUN/Creatinine Ratio 29.2 LAB CHEMISTRY METHOD 07/16/2024 10:49 AM [facility] LAB Calcium 9.0 8.5 - 10.5 mg/dL LAB CHEMISTRY METHOD 07/16/2024 10:49 AM [facility] LAB AST (SGOT) 18 10 - 42 unit/L LAB CHEMISTRY METHOD 07/16/2024 10:49 AM [facility] LAB ALT (SGPT) 8(L) 10 - 60 unit/L LAB CHEMISTRY METHOD 07/16/2024 10:49 AM [facility] LAB Alkaline Phosphatase 61 42 - 121 unit/L LAB CHEMISTRY METHOD 07/16/2024 10:49 AM [facility] LAB Total Protein 6.3 6.0 - 8.0 g/dL LAB CHEMISTRY METHOD 07/16/2024 10:49 AM [facility] LAB Albumin 3.4 3.2 - 5.0 g/dL LAB CHEMISTRY METHOD 07/16/2024 10:49 AM [facility] LAB Total Bilirubin 0.5 0.0 - 1.4 mg/dL LAB CHEMISTRY METHOD 07/16/2024 10:49 AM EST [facility] Blood Venous blood specimen / Unknown Venipuncture / Unknown 07/16/2024 5:30 AM EST 07/16/2024 9:10 AM EST us Mayo Donnelly MD LAB BLOOD ORDERABLES Final Res ult Performing Organization Address City/State/[facility] Co de Phone Number [facility] ([facility] LAB [address] [place] [address], documented in this encounter Visit Diagnoses Diagnosis Encounter for other general examination documented in this encounter Care Teams Desk Officer Relationship Specialty Start Date End Date Andree Lindquist MD PCP - General Internal Medicine 03/19/22 documented as of this encounter
--- OUTSIDE RECORDS SUMMARY | 2024-10-09 17:44 | XMS_ITS | Encounter Summary ---
Author Organization [employer] Address [address] [facility] [address] [place] [address] Care Team Providers Care Correctional Sergeant Name Role Phone Unavailable Primary Care Provider [...] Description 02/21/2025 10:50 AM EDT Office Visit [facility] DENTAL [address] [place] [address] Krystal Ramesh documented as of this encounter Visit Diagnoses Not on filedocumented in this encounter Care Teams Correctional Sergeant Relationship Specialty Start Date End Date Dr. Meghan Hicks Primary Care Provider 08/17/[address] Andree Lindquist [facility] Primary Care [place], [place] Primary Care Provider 08/17/22 documented as of this encounter
--- OUTSIDE RECORDS SUMMARY | 2024-10-09 17:44 | XMS_ITS | Encounter Summary ---
Author Organization [facility] Address [address] [place] [address] Care Team Providers Care Refrigerated Company Driver Name Role Phone Andree Lindquist MD Primary Care Provider [phone] Encounter Details Date Type Department Care Team (Late st Contact Info) Description 07/25/2024 Lab Requisition [facility] - Main Lab [address] [place] [phone] Mayo Donnelly MD [address] [place] [address] Encounter for other general examination Social History [...] LAB CHEMISTRY METHOD 07/25/2024 11:01 AM EST [facility] LAB Potassium 5.5 3.5 - [...] MD LAB BLOOD ORDERABLES Final Res ult [facility] [address] [place] [address], documented in this encounter Visit Diagnoses Diagnosis Encounter for other general examination documented in this encounter Care Teams Refrigerated Company Driver Relationship Specialty Start Date End Date Andree Lindquist MD PCP - General Internal Medicine 03/19/22 documented as of this encounter
--- OUTSIDE RECORDS SUMMARY | 2024-10-09 17:44 | XMS_ITS | Encounter Summary ---
Author Organization [employer] Address [address] [facility] 7t [place] [address] Care Team Providers Care Final Inspector Shuttle Name Role Phone Unavailable Primary Care Provider [...] Description 02/21/2025 10:50 AM EDT Office Visit [facility] DENTAL [address] [place] [address] Krystal Ramesh documented as of this encounter Visit Diagnoses Not on filedocumented in this encounter Care Teams Final Inspector Shuttle Relationship Specialty Start Date End Date Dr. Meghan Hicks Primary Care Provider 08/17/[address] Andree Lindquist [facility] Primary Care [place], [place] Primary Care Provider 08/17/22 documented as of this encounter
--- OUTSIDE RECORDS SUMMARY | 2024-10-09 17:44 | XMS_ITS | Encounter Summary ---
Author Organization [employer] Address [address] [facility] [address] [place] [address] Care Team Providers Care Casing Cooker Name Role Phone Unavailable Primary Care Provider [...] Description 02/21/2025 10:50 AM EDT Office Visit [facility] DENTAL [address] [place] [address] Krystal Ramesh documented as of this encounter Visit Diagnoses Not on filedocumented in this encounter Care Teams Casing Cooker Relationship Specialty Start Date End Date Dr. Meghan Hicks Primary Care Provider 08/17/[address] Andree Lindquist [facility] Primary Care [place], [place] Primary Care Provider 08/17/22 documented as of this encounter
== END 2024-10-09 15:45 | disposition home or self-care (01) ==
LOC: HO.LNP 15:44
PROVIDERS: Visit Provider Surgery
DX: N30.01 Acute cystitis with hematuria (principal)
CPT/HCPCS: 87086

== ENCOUNTER 2024-10-12 11:27 | Outpatient (REF) | payer MEDICARE, SELFPAY ==
[2024-10-12 11:38] LABS: Appearance Urine Turbid; Color Urine Yellow; Glucose Urine UA Negative (Negative); Leukocyte Esterase Urine Large (3+) (Negative); Nitrite Urine Negative (Negative); PH 8.5 (5.0-9.0); UMIC TRIGGER UACC YES; Urine Blood Small (1+) (Negative); Urine Ketones Trace mg/dL (Negative); Urine Protein 300 (3+) mg/dL (Neg-Trace)
[2024-10-12 11:56] LABS: Bacteria Urine 4+ (None Seen); RBC Urine >20 /HPF (0-2); Squamous Epithelial Cell Urine 0-2 /HPF (0-2); UACC Culture Trigger YES; WBC Urine >50 /HPF (0-5)
--- OUTSIDE RECORDS SUMMARY | 2024-10-12 12:45 | XMS_ITS | Encounter Summary ---
Author Organization [facility] Address [address] [place] [address] Care Team Providers Care Assembler Semiconductor Name Role Phone Andree Lindquist MD Primary Care Provider [phone] Encounter Details Date Type Department Care Team (Late st Contact Info) Description 07/21/2024 Lab Requisition [facility] - Main Lab [address] [place] [address] Mayo Donnelly MD [address] [place] [address] Encounter for other general examination Social History [...] AM EST) WBC 6.6 4.8 - 10.8 /[facility] LAB HEMETOLOGY METHOD 07/21/2024 8:[address] [facility] LAB RBC 3.90 3.80 - 4.80 M/mcL LAB HEMETOLOGY METHOD 07/21/2024 8:[address] [facility] LAB Hemoglobin 9.4(L) 11.5 - 16.0 g/dL LAB HEMETOLOGY METHOD 07/21/2024 8:[address] [facility] LAB Hematocrit 31.3(L) 35.0 - 47.0 % LAB HEMETOLOGY METHOD 07/21/2024 8:[address] [facility] LAB MCV 80.3 79.0 - 98.0 FL LAB HEMETOLOGY METHOD 07/21/2024 8:[address] [facility] LAB MCH 24.1(L) 27.0 - 32.0 pcg LAB HEMETOLOGY METHOD 07/21/2024 8:[address] [facility] LAB MCHC 30.0(L) 32.0 - 37.0 g/dL LAB HEMETOLOGY METHOD 07/21/2024 8:[address] [facility] LAB RDW 15.4(H) 11.0 - 15.0 % LAB HEMETOLOGY METHOD 07/21/2024 8:[address] [facility] LAB Platelets 281 130 - 400 K/mcL LAB HEMETOLOGY METHOD 07/21/2024 8:[address] [facility] LAB MPV 10.5 7.0 - 11.0 FL LAB HEMETOLOGY METHOD 07/21/2024 8:[address] [facility] LAB NRBC 0.0 <1.0 % LAB HEMETOLOGY METHOD 07/21/2024 8:[address] [facility] LAB NRBC Absolute 0.00 <0.10 K/mcL LAB HEMETOLOGY METHOD 07/21/2024 8:[address] [facility] LAB Blood Venous blood specimen / Unknown Venipuncture / Unknown 07/21/2024 5:00 AM EST 07/21/2024 7:36 AM EST us Mayo Donnelly MD LAB BLOOD ORDERABLES Final Res ult [facility] LAB [address] [place] [address], [place] [phone] * (ABNORMAL) Comprehensive metabolic panel (07/21/2024 5:00 AM EST) Sodium 133 133 - 145 mmol/L LAB CHEMISTRY METHOD 07/21/2024 8:[address] [facility] LAB Potassium 5.5 3.5 - 5.5 mmol/L LAB CHEMISTRY METHOD 07/21/2024 8:[address] [facility] Chloride 103 96 - 110 mmol/L LAB CHEMISTRY METHOD 07/21/2024 8:[address] [facility] CO2 24 21 - 32 mmol/L LAB CHEMISTRY METHOD 07/21/2024 8:[address] [facility] LAB Anion Gap 6 3 - 11 LAB CHEMISTRY METHOD 07/21/2024 8:[address] [facility] Glucose 103(H) 70 - 100 mg/dL LAB CHEMISTRY METHOD 07/21/2024 8:[address] [facility] BUN 54(H) 5 - 25 mg/dL LAB CHEMISTRY METHOD 07/21/2024 8:[address] [facility] LAB Comment:Results verified by repeat testing Creatinine 1.34(H) 0.50 - 1.10 mg/dL LAB CHEMISTRY METHOD 07/21/2024 8:[address] [facility] LAB eGFR 41(L) >=60 mL/min/1. 73m2 LAB CHEMISTRY METHOD 07/21/2024 8:[address] [facility] LAB Comment:Calculation based on the??Chronic Kidney Disease Epidemiology Collaboration (CKD-EPI) equation refit??without adjustment for race. BUN/Creatinine Ratio 40.3 LAB CHEMISTRY METHOD 07/21/2024 8:[address] [facility] LAB Calcium 9.8 8.5 - 10.5 mg/dL LAB CHEMISTRY METHOD 07/21/2024 8:[address] [facility] LAB AST (SGOT) 19 10 - 42 unit/L LAB CHEMISTRY METHOD 07/21/2024 8:[address] [facility] ALT (SGPT) 16 10 - 60 unit/L LAB CHEMISTRY METHOD 07/21/2024 8:[address] [facility] LAB Alkaline Phosphatase 68 42 - 121 unit/L LAB CHEMISTRY METHOD 07/21/2024 8:[address] [facility] LAB Total Protein 6.8 6.0 - 8.0 g/dL LAB CHEMISTRY METHOD 07/21/2024 8:[address] [facility] Albumin 3.5 3.2 - 5.0 g/dL LAB CHEMISTRY METHOD 07/21/2024 8:[address] [facility] Total Bilirubin 0.3 0.0 - 1.4 mg/dL LAB CHEMISTRY METHOD 07/21/2024 8:[address] [facility] Blood Venous blood specimen / Unknown Venipuncture / Unknown 07/21/2024 5:00 AM EST 07/21/2024 7:36 AM EST us Mayo Donnelly MD LAB BLOOD ORDERABLES Final Res ult [facility] [address] [place] [address], documented in this encounter Visit Diagnoses Diagnosis Encounter for other general examination documented in this encounter Care Teams Assembler Semiconductor Relationship Specialty Start Date End Date Andree Lindquist MD PCP - General Internal Medicine 03/19/22 documented as of this encounter
--- OUTSIDE RECORDS SUMMARY | 2024-10-12 12:45 | XMS_ITS | Clinical Summary ---
Author Organization [employer] Address [address] [place] [address] 7 [place] [address] Care Team Providers Care Machining Manager Name Role Phone Unavailable Primary Care Provider Unavailabl e Allergies Active Allergy Reactions Criticality Noted Date Comments Cefdinir Unknown 07/02/2022 Sulfa Antibiotics Unknown 07/02/2022 Trimethoprim Unknown 07/02/2022 Medications Umeclidinium [place] (INCRUSE [place]) Incruse Ellipta Ac tive [...] Description 02/21/2025 10:50 AM EDT Office Visit [place] [facility] DENTAL [address] [place] [address] Krystal Ramesh Health Maintenance Due Date Last [...] Relevant to Health Maintenance Insurance # [address] [place] [address] [facility] D[facility] - HSN FULL (MEDICAID) Care Teams Machining Manager Relationship Specialty Start Date End Date Dr. Andree Lindquist [facility] Primary Care [place], [place] Primary Care Provider 08/17/22
--- OUTSIDE RECORDS SUMMARY | 2024-10-12 12:45 | XMS_ITS | Encounter Summary ---
Author Organization [facility] Address [address] [place] [address] Care Team Providers Care Graphic Specialist Name Role Phone Andree Lindquist MD Primary Care Provider [phone] Encounter Details Date Type Department Care Team (Late st Contact Info) Description 08/01/[address] [facility] - Main Lab [address] [place] [address] Mayo Donnelly MD [address] [place] [address] Encounter for other general examination Social History [...] AM EST) WBC 11.1(H) 4.8 - 10.8 K/[facility] LAB HEMETOLOGY METHOD 08/01/2024 10:45 AM [facility] LAB RBC 3.80 3.80 - 4.80 M/mcL LAB HEMETOLOGY METHOD 08/01/2024 10:45 AM [facility] LAB Hemoglobin 9.3(L) 11.5 - 16.0 g/dL LAB HEMETOLOGY METHOD 08/01/2024 10:45 AM [facility] LAB Hematocrit 30.6(L) 35.0 - 47.0 % LAB HEMETOLOGY METHOD 08/01/2024 10:45 AM [facility] LAB MCV 81.4 79.0 - 98.0 FL LAB HEMETOLOGY METHOD 08/01/2024 10:45 AM [facility] LAB MCH 24.7(L) 27.0 - 32.0 pcg LAB HEMETOLOGY METHOD 08/01/2024 10:45 AM [facility] LAB MCHC 30.4(L) 32.0 - 37.0 g/dL LAB HEMETOLOGY METHOD 08/01/2024 10:45 AM [facility] LAB RDW 16.0(H) 11.0 - 15.0 % LAB HEMETOLOGY METHOD 08/01/2024 10:45 AM [facility] LAB Platelets 327 130 - 400 K/mcL LAB HEMETOLOGY METHOD 08/01/2024 10:45 AM [facility] LAB MPV 10.4 7.0 - 11.0 FL LAB HEMETOLOGY METHOD 08/01/2024 10:45 AM [facility] LAB NRBC 0.0 <1.0 % LAB HEMETOLOGY METHOD 08/01/2024 10:45 AM [facility] LAB NRBC Absolute 0.00 <0.10 K/mcL LAB HEMETOLOGY METHOD 08/01/2024 10:45 AM [facility] LAB Blood Venous blood specimen / Unknown Venipuncture / Unknown 08/01/2024 4:56 AM EST 08/01/2024 9:34 AM EST us Mayo Donnelly MD LAB BLOOD ORDERABLES Final Res ult [facility] [address] [place] [address], [place] [phone] * (ABNORMAL) Comprehensive metabolic panel (08/01/2024 4:56 AM EST) Sodium 136 133 - 145 mmol/L LAB CHEMISTRY METHOD 08/01/2024 11:16 AM EST [facility] LAB Potassium 5.5 3.5 - 5.5 mmol/L LAB CHEMISTRY METHOD 08/01/2024 11:16 AM [facility] LAB Chloride 105 96 - 110 mmol/L LAB CHEMISTRY METHOD 08/01/2024 11:16 AM [facility] LAB CO2 26 21 - 32 mmol/L LAB CHEMISTRY METHOD 08/01/2024 11:16 AM [facility] LAB Anion Gap 5 3 - 11 LAB CHEMISTRY METHOD 08/01/2024 11:16 AM [facility] LAB Glucose 83 70 - 100 mg/dL LAB CHEMISTRY METHOD 08/01/2024 11:16 AM [facility] LAB BUN 44(H) 5 - 25 mg/dL LAB CHEMISTRY METHOD 08/01/2024 11:16 AM [facility] LAB Creatinine 1.15(H) 0.50 - 1.10 mg/dL LAB CHEMISTRY METHOD 08/01/2024 11:16 AM [facility] LAB eGFR 49(L) >=60 mL/min/1. 73m2 LAB CHEMISTRY METHOD 08/01/2024 11:16 AM [facility] LAB Comment:Calculation based on the??Chronic Kidney Disease Epidemiology Collaboration (CKD-EPI) equation refit??without adjustment for race. BUN/Creatinine Ratio 38.3 LAB CHEMISTRY METHOD 08/01/2024 11:16 AM [facility] LAB Calcium 9.3 8.5 - 10.5 mg/dL LAB CHEMISTRY METHOD 08/01/2024 11:16 AM [facility] LAB AST (SGOT) 23 10 - 42 unit/L LAB CHEMISTRY METHOD 08/01/2024 11:16 AM [facility] LAB ALT (SGPT) 17 10 - 60 unit/L LAB CHEMISTRY METHOD 08/01/2024 11:16 AM [facility] LAB Alkaline Phosphatase 67 42 - 121 unit/L LAB CHEMISTRY METHOD 08/01/2024 11:16 AM [facility] LAB Total Protein 6.6 6.0 - 8.0 g/dL LAB CHEMISTRY METHOD 08/01/2024 11:16 AM [facility] LAB Albumin 3.4 3.2 - 5.0 g/dL LAB CHEMISTRY METHOD 08/01/2024 11:16 AM [facility] LAB Total Bilirubin 0.3 0.0 - 1.4 mg/dL LAB CHEMISTRY METHOD 08/01/2024 11:16 AM [facility] LAB Blood Venous blood specimen / Unknown Venipuncture / Unknown 08/01/2024 4:56 AM EST 08/01/2024 9:34 AM EST us Mayo Donnelly MD LAB BLOOD ORDERABLES Final Res ult [facility] [address] [place] [address], documented in this encounter Visit Diagnoses Diagnosis Encounter for other general examination documented in this encounter Care Teams Graphic Specialist Relationship Specialty Start Date End Date Andree Lindquist MD PCP - General Internal Medicine 03/19/22 documented as of this encounter
--- OUTSIDE RECORDS SUMMARY | 2024-10-12 12:45 | XMS_ITS | Encounter Summary ---
Author Organization [facility] Address [address] [place] [address] Care Team Providers Care Production Manager Name Role Phone Andree Lindquist MD Primary Care Provider [phone] Encounter Details Date Type Department Care Team (Late st Contact Info) Description 07/25/2024 Lab Requisition [facility] - Main Lab [address] [place] [phone] Mayo Donnelly MD [address] [place] [address] Encounter for other general examination Social History [...] LAB CHEMISTRY METHOD 07/25/2024 11:01 AM EST [facility] Potassium 5.5 3.5 - 5.5 mmol/L LAB CHEMISTRY METHOD 07/25/2024 11:01 AM [facility] LAB Comment:Hemolysis present Chloride 111(H) 96 - 110 mmol/L LAB CHEMISTRY METHOD 07/25/2024 11:01 AM [facility] LAB CO2 16(L) 21 - 32 mmol/L LAB CHEMISTRY METHOD 07/25/2024 11:01 AM [facility] LAB Anion Gap 8 3 - 11 LAB CHEMISTRY METHOD 07/25/2024 11:01 AM [facility] LAB Glucose 85 70 - 100 mg/dL LAB CHEMISTRY METHOD 07/25/2024 11:01 AM [facility] LAB BUN 66(H) 5 - 25 mg/dL LAB CHEMISTRY METHOD 07/25/2024 11:01 AM [facility] LAB Creatinine 1.20(H) 0.50 - 1.10 mg/dL LAB CHEMISTRY METHOD 07/25/2024 11:01 AM [facility] LAB eGFR 47(L) >=60 mL/min/1. 73m2 LAB CHEMISTRY METHOD 07/25/2024 11:01 AM [facility] LAB Comment:Calculation based on the??Chronic Kidney Disease Epidemiology Collaboration (CKD-EPI) equation refit??without adjustment for race. BUN/Creatinine Ratio 55.0 LAB CHEMISTRY METHOD 07/25/2024 11:01 AM [facility] LAB Calcium 9.2 8.5 - 10.5 mg/dL LAB CHEMISTRY METHOD 07/25/2024 11:01 AM [facility] LAB Blood Venous blood specimen / Unknown Venipuncture / Unknown 07/25/2024 4:31 AM EST 07/25/2024 9:59 AM EST us Myao Donnelly MD LAB BLOOD ORDERABLES Final Res ult [facility] [address] [place] [address], documented in this encounter Visit Diagnoses Diagnosis Encounter for other general examination documented in this encounter Care Teams Production Manager Relationship Specialty Start Date End Date Andree Lindquist MD PCP - General Internal Medicine 03/19/22 documented as of this encounter
--- OUTSIDE RECORDS SUMMARY | 2024-10-12 12:45 | XMS_ITS | Encounter Summary ---
Author Organization [facility] Address [address] [place] [address] Care Team Providers Care Thermal Engineer Name Role Phone Andree Lindquist MD Primary Care Provider [phone] Encounter Details Date Type Department Care Team ([facility] st Contact Info) Description 07/16/2024 Lab Requisition [facility] - Main Lab [address] [facility] [place] [address] Mayo Donnelly MD [address] [place] [address] Encounter for other general examination Social History [...] (ABNORMAL) Magnesium (07/16/2024 5:30 AM EST) Pathologist [facility] Magnesium 1.6(L) 1.9 - 2.6 mg/dL LAB CHEMISTRY METHOD 07/16/2024 10:49 AM EST [facility] LAB Blood Venous blood specimen / Unknown Venipuncture / Unknown 07/16/2024 5:30 AM EST 07/16/2024 9:10 AM EST us Mayo Donnelly MD LAB BLOOD ORDERABLES Final Res ult [facility] LAB [address] [place] [address], [place] [phone] * (ABNORMAL) CBC auto differential (07/16/2024 5:30 AM EST) [facility] WBC 5.8 4.8 - 10.8 K/mcL LAB HEMETOLOGY METHOD 07/16/2024 10:[address] [facility] RBC 3.80 3.80 - 4.80 M/mcL LAB HEMETOLOGY METHOD 07/16/2024 10:[address] [...] LAB Monocytes Absolute 0.58 0.20 - 1.00 [facility] LAB HEMETOLOGY METHOD 07/16/2024 10:[address] [facility] LAB Eosinophils Absolute 0.18 0.00 - 0.50 K/[facility] LAB HEMETOLOGY METHOD 07/16/2024 10:[address] [facility] Basophils Absolute 0.01 0.00 - 0.20 K/[facility] LAB HEMETOLOGY METHOD 07/16/2024 10:[address] [facility] Immature Granulocytes Absolute 0.02 0.00 - 0.03 K/[facility] LAB HEMETOLOGY METHOD 07/16/2024 10:[address] [facility] LAB Blood Venous blood specimen / Unknown Venipuncture / Unknown 07/16/2024 5:30 AM EST 07/16/2024 9:10 AM EST us Mayo Donnelly MD LAB BLOOD ORDERABLES Final Res ult [facility] LAB [address] [place] [address], * (ABNORMAL) Comprehensive metabolic panel (07/16/2024 5:30 [...] ORDERABLES Final Res ult Performing Organization Address City/State/[facility] Co de Phone Number [facility] LAB [address] [place] [address], documented in this encounter Visit Diagnoses Diagnosis Encounter for other general examination documented in this encounter Care Teams Thermal Engineer Relationship Specialty Start Date End Date Andree Lindquist MD PCP - General Internal Medicine 03/19/22 documented as of this encounter
--- OUTSIDE RECORDS SUMMARY | 2024-10-12 12:45 | XMS_ITS | Clinical Summary ---
Author Organization [facility] Address [address] [place] [address] Care Team Providers Care Medical Csr Name Role Phone Ameena Andree Primary Care Provider [phone] Allergies Active Allergy Reactions Criticality Noted Date [...] Description 10/03/2024 11:30 AM EDT Pre-Admission Testing [facility] [address] [place] [address] Meka Dover NP Urge incontinence (Primary Dx); Pre-op evaluation; Primary hypertension 10/03/2024 Telephone [facility] [address] [address] Gear Straightener: Christen Dempsey MD 09/05/2024 myCluis enriquet Message [facility] [address] [address] Gear Straightener: Paulette Sierra [facility] Surgery Wednesday10/17/2024 09/04/2024 Orders Only [facility] [address] [address] Gear Straightener: Christen Dempsey MD 08/31/2024 Telephone [facility] [address] [address] Gear Straightener: Christen Dempsey MD Update on pt's. symptoms 08/30/2024 Orders Only [facility] [address] [address] Gear Straightener: Christen Dempsey MD Acute cystitis with hematuria (Primary Dx) 08/25/2024 1:00 PM EST Pre-Admission Testing [facility] [address] [address] Urge incontinence (Primary Dx); Preoperative testing 08/23/2024 Telephone [facility] [address] [address] Gear Straightener: Christen Dempsey MD 08/21/2024 Prep for Case [facility] [address] [place] [address] Gear Straightener: Christen Dempsey MD Urge incontinence (Primary Dx) 08/18/2024 Telephone [facility] [address] [address] Gear Straightener: Paulette Giordano Telephone Intake, Staff PAC Appt Request - Established 07/24/2024 Orders Only [facility] [address] [place] [address] Gear Straightener: Christen Dempsey MD Acute cystitis with hematuria (Primary Dx) from Last 3 Months Family History Medical History Relation Name Comments COPD Father Throat cancer Father Colon cancer Mother Heart disease Mother [place] Relation Name Status Comments Father Mother Social [...] Description 10/17/2024 8:20 AM EDT Hospital Encounter [facility] [address] [place] [address] Christen Lopes MD [address] [place] [address] 10/17/2024 8:20 AM EDT Anesthesia Event [facility] [address] [place] [address] Kimberley Mack DO [address] [place] [address] 10/17/2024 8:20 AM EDT - 10/17/2024 9:10 AM EDT Surgery [facility] [address] [place] [address] Christen Lopes MD [address] [place] [address] CYSTOURETHROSCOPY WITH CHEMODENERVATION Botox 100 units [23159 (CPT??)] 06/20/2025 10:45 AM EST Follow-Up [facility] [address] [place] [address] Gear Straightener: Christen Dempsey MD [address] [place] [address] Scheduled Procedures Name Priority Associated Diagnoses Date/Ti [...] 2023-2 5 season) 2024 05/28/2021, 09/26/2020, 09/05/2020 Alcohol/Substance Use Screening 07/12/2024 Depression Screening and Follow-Up 07/12/2024 Health Care Proxy Review 07/12/2024 Social Drivers of Health Odalis ual Screening 07/12/2024 Ophthalmology Exam 08/26/2024 08/26/2023, 08/17/2022 Influenza Vaccine (Season Ended) 2025 05/19/2023, 06/08/2022, 04/29/2020, Additional history exists Basic Metabolic Panel 08/01/2025 08/01/2024 , 07/27/2024, 07/25/2024, Additional history exists Pneumococcal Vaccine: 50+ Years Completed 08/05/2016, 12/31/2014, 03/27/2009 Cologuard Discontinued 10/06/2021, 10/06/2021 Colon Cancer Screening Discontinued Colonoscopy Discontinued FOBT / Fit Test Discontinued Sigmoidoscopy Discontinued Procedures * Due to [place] AIT law, this organization might not be sharing [...] to Health Maintenance Results * Due to [place] AIT law, this organization might not be sharing negative HIV tests. * Urinalysis, Outside Lab (09/02/2024 9:20 AM EST) Christen Lopes MD LAB URINE ORDERABLES Final Re sult * LAB - SCANNED (08/29/2024) us Onbase Scan [facility] LAB HISTORICAL RESULTS Final Result * EKG, Outside Results (08/17/2024) Only the most recent of2 resultswithin the time period is included. Anatomical Region Laterality Modality Other 08/17/2024 us Onbase Scan [facility] EXTERNAL RESULT PROCEDURE S Final Result * (ABNORMAL) Basic Metabolic Panel (08/18/2023 4:45 AM EST) NA 137 135 - 145 mmol/L 08/18/2023 6:37 AM EST [facility] K 3.9 3.5 - 5.3 mmol/L 08/18/2023 6:37 AM EST [facility] Cl 106 97 - 110 mmol/L 08/18/2023 6:37 AM EST [facility] CO2 23(L) 24 - 32 mmol/L 08/18/2023 6:37 AM EST [facility] BUN 37(H) 7 - 23 mg/dL 08/18/2023 6:37 AM EST [facility] Creatinine 0.84 0.50 - 1.20 mg/dL 08/18/2023 6:37 AM EST [facility] Glucose 66(L) 70 - 99 mg/dL 08/18/2023 6:37 AM EST [facility] Calcium 8.3(L) 8.7 - 10.7 mg/dL 08/18/2023 6:37 AM EST [facility] Anion Gap 8 5 - 15 08/18/2023 6:37 AM EST [facility] eGFR 73 >=60 mL/min/1. 73m2 08/18/2023 6:37 AM EST [facility] Comment:The estimated [...] MD LAB BLOOD ORDERABLES Final Re sult [facility] [address] [place], [place] [phone], from Last 3 Months or Most Recently Relevant to Health Maintenance Insurance [facility] MEDICARE Member Subscriber Plan / Payer (Ef fective 2012-Present) Name:Francine Pope Member ID:[id number] Relation to Subscriber:Self Name:Francine Pope Subscriber ID:[id number] Payer ID:[id number] Group ID:Not on file Type:Not on file Address: [address] [place] [id number] Advance Directives * Full Code (Latest Code Status on File) Date Activated Date Inactivated Comments 11/23/2023 8:48 AM 11/23/2023 1:53 PM * Full Code Date Activated Date Inactivated Comments 08/17/2023 10:08 AM 08/18/2023 4:16 PM Healthcare Agents on File Name Relationship Healthcare Agent Relationship Communication Martita Pope Daughter Health Care Agent [email or web address] Care Teams Medical Csr Relationship Specialty Start Date End Date Andree Lindquist PCP - General Family Medicine 03/26/23
--- OUTSIDE RECORDS SUMMARY | 2024-10-12 12:45 | XMS_ITS | Encounter Summary ---
Author Organization [facility] [address] Address [address] [place] [address] Care Team Providers Care Returned Telephone Equipment Appraiser Name Role Phone Andree Lindquist MD Primary Care Provider [phone] Encounter Details Date Type Department Care Team (Late st Contact Info) Description 07/27/2024 Lab Requisition [facility] - Main Lab [address] [place] [address] Mayo Donnelly MD [address] [place] [address] Encounter for other general examination Social History [...] AM EST) WBC 6.5 4.8 - 10.8 /[facility] LAB HEMETOLOGY METHOD 07/27/2024 11:45 AM [facility] LAB RBC 3.80 3.80 - 4.80 M/mcL LAB HEMETOLOGY METHOD 07/27/2024 11:45 AM [facility] LAB Hemoglobin 9.2(L) 11.5 - 16.0 g/dL LAB HEMETOLOGY METHOD 07/27/2024 11:45 AM [facility] LAB Hematocrit 30.8(L) 35.0 - 47.0 % LAB HEMETOLOGY METHOD 07/27/2024 11:45 AM [facility] LAB MCV 81.7 79.0 - 98.0 FL LAB HEMETOLOGY METHOD 07/27/2024 11:45 AM [facility] LAB MCH 24.4(L) 27.0 - 32.0 pcg LAB HEMETOLOGY METHOD 07/27/2024 11:45 AM [facility] LAB MCHC 29.9(L) 32.0 - 37.0 g/dL LAB HEMETOLOGY METHOD 07/27/2024 11:45 AM [facility] LAB RDW 15.8(H) 11.0 - 15.0 % LAB HEMETOLOGY METHOD 07/27/2024 11:45 AM [facility] LAB Platelets 318 130 - 400 K/mcL LAB HEMETOLOGY METHOD 07/27/2024 11:45 AM [facility] MPV 10.3 7.0 - 11.0 FL LAB HEMETOLOGY METHOD 07/27/2024 11:45 AM [facility] LAB NRBC 0.0 <1.0 % LAB HEMETOLOGY METHOD 07/27/2024 11:45 AM [facility] LAB NRBC Absolute 0.00 <0.10 K/mcL LAB HEMETOLOGY METHOD 07/27/2024 11:45 AM [facility] LAB Blood Venous blood specimen / Unknown Venipuncture / Unknown 07/27/2024 6:45 AM EST 07/27/2024 10:56 AM EST us Mayo Donnelly MD LAB BLOOD ORDERABLES Final Res ult [facility] [address] [place] [address], [place] [phone] * (ABNORMAL) Comprehensive metabolic panel (07/27/2024 6:45 AM EST) Sodium 134 133 - 145 mmol/L LAB CHEMISTRY METHOD 07/27/2024 2:10 PM EST [facility] LAB Potassium 5.2 3.5 - 5.5 mmol/L LAB CHEMISTRY METHOD 07/27/2024 2:10 PM [facility] Chloride 107 96 - 110 mmol/L LAB CHEMISTRY METHOD 07/27/2024 2:10 PM [facility] CO2 20(L) 21 - 32 mmol/L LAB CHEMISTRY METHOD 07/27/2024 2:10 PM [facility] Anion Gap 7 3 - 11 LAB CHEMISTRY METHOD 07/27/2024 2:10 PM [facility] Glucose 101(H) 70 - 100 mg/dL LAB CHEMISTRY METHOD 07/27/2024 2:10 PM [facility] BUN 43(H) 5 - 25 mg/dL LAB CHEMISTRY METHOD 07/27/2024 2:10 PM [facility] LAB Creatinine 0.99 0.50 - 1.10 mg/dL LAB CHEMISTRY METHOD 07/27/2024 2:10 PM [facility] LAB eGFR 59(L) >=60 mL/min/1. 73m2 LAB CHEMISTRY METHOD 07/27/2024 2:10 PM [facility] LAB Comment:Calculation based on the??Chronic Kidney Disease Epidemiology Collaboration (CKD-EPI) equation refit??without adjustment for race. BUN/Creatinine Ratio 43.4 LAB CHEMISTRY METHOD 07/27/2024 2:10 PM [facility] Calcium 9.4 8.5 - 10.5 mg/dL LAB CHEMISTRY METHOD 07/27/2024 2:10 PM [facility] AST (SGOT) 23 10 - 42 unit/L LAB CHEMISTRY METHOD 07/27/2024 2:10 PM [facility] ALT (SGPT) 16 10 - 60 unit/L LAB CHEMISTRY METHOD 07/27/2024 2:10 PM [facility] Alkaline Phosphatase 65 42 - 121 unit/L LAB CHEMISTRY METHOD 07/27/2024 2:10 PM [facility] Total Protein 6.4 6.0 - 8.0 g/dL LAB CHEMISTRY METHOD 07/27/2024 2:10 PM [facility] Albumin 3.5 3.2 - 5.0 g/dL LAB CHEMISTRY METHOD 07/27/2024 2:10 PM [facility] Total Bilirubin 0.2 0.0 - 1.4 mg/dL LAB CHEMISTRY METHOD 07/27/2024 2:10 PM [facility] Blood Venous blood specimen / Unknown Venipuncture / Unknown 07/27/2024 6:45 AM EST 07/27/2024 10:56 AM EST us Mayo Donnelly MD LAB BLOOD ORDERABLES Final Res ult [facility] [address] [place] [address], documented in this encounter Visit Diagnoses Diagnosis Encounter for other general examination documented in this encounter Care Teams Returned Telephone Equipment Appraiser Relationship Specialty Start Date End Date Andree Lindquist MD PCP - General Internal Medicine 03/19/22 documented as of this encounter
--- OUTSIDE RECORDS SUMMARY | 2024-10-12 12:45 | XMS_ITS | Referral Summary ---
Author Organization [facility] Address [address] [place] [address] Care Team Providers Care Produce Team Member Name Role Phone Ameena Andree Primary Care Provider Encounters Date Type Department Care Team Description 10/03/2024 Telephone [facility] [address] [place] [address] [employer] Professional: Christen Dempsey MD 10/03/2024 11:30 AM EDT Pre-Admission Testing [facility] [address] [place] [address] Meka Dover NP Urge incontinence (Primary Dx); Pre-op evaluation; Primary hypertension 09/05/2024 myChart Message [facility] [address] [address] [employer] Professional: Paulette Sierra, [facility] Provider Surgery Wednesday10/17/2024 09/04/2024 Orders Only [facility] [address] [place] [address] [employer] Professional: Christen Dempsey MD 08/31/2024 Telephone [facility] [address] [place] [address] [employer] Professional: Christen Dempsey MD Update on pt's. symptoms 08/30/2024 Orders Only [facility] [address] [address] [employer] Professional: Christen Dempsey MD Acute cystitis with hematuria (Primary Dx) 08/25/2024 1:00 PM EST Pre-Admission Testing [facility] [address] [place] [address] Urge incontinence (Primary Dx); Preoperative testing 08/23/2024 Telephone [facility] [address] [address] [employer] Professional: Christen Dempsey MD 08/21/2024 Prep for Case [facility] [address] [address] [employer] Professional: Christen Dempsey MD Urge incontinence (Primary Dx) 08/18/2024 Telephone [facility] [address] [address] [employer] Professional: Paulette Giordano Telephone Intake, Staff PAC Appt Request - Established 07/24/2024 Orders Only [facility] [address] [address] [employer] Professional: Christen Dempsey MD Acute cystitis with hematuria [...] Description 10/17/2024 8:20 AM EDT Hospital Encounter [facility] Operating Room [address] [place] [address] Christen Lopes MD [address] [place] [address] 10/17/2024 8:20 AM EDT Anesthesia Event [facility] Operating Room [address] [place] [address] Kimberley Mack, DO [address] [place] [address] 10/17/2024 8:20 AM EDT - 10/17/2024 9:10 AM EDT Surgery [facility] Operating Room [address] [place] [address] Christen Lopes MD [address] [place] [address] CYSTOURETHROSCOPY WITH CHEMODENERVATION Botox 100 units [35531 (CPT??)] 06/20/2025 10:45 AM EST Follow-Up [facility] Clinic [address] [place] [address] [employer] Professional: Christen Dempsey MD [address] [place] [address] Scheduled Procedures Name Priority Associated Diagnoses Date/Ti me CYSTOURETHROSCOPY WITH CHEMODENERVATION Urge incontinence 10/17/2024 8:20 AM EDT Procedures * Due to [place] state law, this organization might not be [...] to Health Maintenance Results * Due to [place] state law, this organization might not be [...] - 145 mmol/L 08/18/2023 6:37 AM EST [facility] K 3.9 3.5 - 5.3 mmol/L 08/18/2023 6:37 AM EST [facility] Cl 106 97 - 110 mmol/L 08/18/2023 6:37 AM EST [facility] CO2 23(L) 24 - 32 mmol/L 08/18/2023 6:37 AM EST [facility] BUN 37(H) 7 - 23 mg/dL 08/18/2023 6:37 AM EST [facility] Creatinine 0.84 0.50 - 1.20 mg/dL 08/18/2023 6:37 AM EST [facility] Glucose 66(L) 70 - 99 mg/dL 08/18/2023 6:37 AM EST [facility] Calcium 8.3(L) 8.7 - 10.7 mg/dL 08/18/2023 6:37 AM EST [facility] Anion Gap 8 5 - 15 08/18/2023 6:37 AM EST [facility] eGFR 73 >=60 mL/min/1. 73m2 08/18/2023 6:37 AM EST [facility] Comment:The estimated glomer [...] MD LAB BLOOD ORDERABLES Final Re sult [facility] [address] [place] [phone], from Last 3 Months or Most Recently Relevant to Health Maintenance Insurance [facility] SUPP Member Subscriber Plan / Payer (Ef fective 2001-Present) Name:Toshia Francine Relation to Subscriber:Self Name:Francine Pope Payer ID:[id number] Type:Not on file Address: [address] [facility] [address] [place] [phone] MEDICARE Advance Directives * Full Code (Latest Code Status on File) Date Activated Date Inactivated Comments 11/23/2023 8:48 AM 11/23/2023 1:53 PM * Full Code Date Activated Date Inactivated Comments 08/17/2023 10:08 AM 08/18/2023 4:16 PM Healthcare Agents on File Name Relationship Healthcare Agent Relationship Communication Martita Pope Daughter Health Care Agent [email or web address] Care Teams Produce Team Member Relationship Specialty Start Date End Date Andree Lindquist PCP - General Family Medicine 03/26/23
--- OUTSIDE RECORDS SUMMARY | 2024-10-12 12:45 | XMS_ITS | Encounter Summary ---
Author Organization [employer] Address [address] [facility] [address] [place] [address] Care Team Providers Care Rail Technician Name Role Phone Unavailable Primary Care [...] Description 02/21/2025 10:50 AM EDT Office Visit [facility] [address] [place] [address] Krystal Ramesh documented as of this encounter Visit Diagnoses Not on filedocumented in this encounter Care Teams Rail Technician Relationship Specialty Start Date End Date Dr. Meghan Hicks Primary Care Provider 08/17/[address] Andree Lindquist [facility] [place], [place] Primary Care Provider 08/17/22 documented as of this encounter
--- OUTSIDE RECORDS SUMMARY | 2024-10-12 12:45 | XMS_ITS | Encounter Summary ---
Author Organization [facility] Address [address] [place] [address] Care Team Providers Care Milking Worker Name Role Phone Andree Lindquist MD Primary Care Provider [phone] Encounter Details Date Type Department Care Team (Late st Contact Info) Description 07/26/2024 Lab Requisition [facility] - Main Lab [address] [facility] [place] [address] Mayo Donnelly MD [address] [place] [address] Encounter for other general examination Social History [...] Escherichia coli(A) YARED 07/29/2024 8:22 AM EST [facility] Culture, Urine 10,000-49,000 CFU/mL Enterococcus faecalis(A) YARED 07/29/2024 8:22 AM EST [facility] Comment: The organism value for this result has been updated. These results have been appended to the previously preliminary verified report. Edited result: Previously reported as Gram Positive Cocci on 07/28/2024 at 1053 EST. Urine Urine specimen obtained by clean catch procedure / Unknown 07/25/2024 6:02 PM EST 07/26/2024 12:32 PM EST [facility] - 07/29/2024 8:22 AM [...] MICROBIOLOGY - GENERAL ORD ERABLES Final Result [facility] [address] [place] [address], [place] [phone] * (ABNORMAL) Urinalysis with reflex microscopic and culture (07/25/2024 6:02 PM EST) Specific [place] Urine 1.025 1.003 - 1.030 LAB URINALYSIS - AUTOMATED METHOD 07/26/2024 12:32 PM [facility] pH, Urine 6.5 5.0 - 8.0 pH LAB URINALYSIS - AUTOMATED METHOD 07/26/2024 12:32 PM [facility] Leukocytes, Urine Small(A) Negative LAB URINALYSIS - AUTOMATED METHOD 07/26/2024 12:32 PM [facility] Nitrite, Urine Positive(A) Negative LAB URINALYSIS - AUTOMATED METHOD 07/26/2024 12:32 PM [facility] Protein, Urine >=300(A) <=Trace mg/dL LAB URINALYSIS - AUTOMATED METHOD 07/26/2024 12:32 PM [facility] Glucose, Urine Negative Negative mg/dL LAB URINALYSIS - AUTOMATED METHOD 07/26/2024 12:32 PM [facility] Ketones, Urine Negative Negative mg/dL LAB URINALYSIS - AUTOMATED METHOD 07/26/2024 12:32 PM [facility] Urobilinogen , Urine 0.2 0.2 - 1.0 mg/dL LAB URINALYSIS - AUTOMATED METHOD 07/26/2024 12:32 PM [facility] Bilirubin, Urine Negative Negative LAB URINALYSIS - AUTOMATED METHOD 07/26/2024 12:32 PM [facility] Blood, Urine Large(A) Negative LAB URINALYSIS - AUTOMATED METHOD 07/26/2024 12:32 PM [facility] RBC, Urine >200 /HPF 07/26/2024 12:32 PM [facility] WBC, Urine 15 /HPF 07/26/2024 12:32 PM [facility] Bacteria, Urine 2+(A) (none) /HPF 07/26/2024 12:32 PM [facility] Urine Urine specimen obtained by clean catch procedure / Unknown 07/25/2024 6:02 PM EST 07/26/2024 11:14 AM EST Mayo Donnelly MD LAB URINE ORDERABLES Final Res ult Performing Organization Address City/[facility]/ZIP Co de Phone Number [facility] [address] [place] [address], [place] [phone] * Ceron urine culture tube (07/25/2024 6:02 PM EST) Extra Tube Hold for add-ons. 07/26/2024 1:01 PM EST [facility] Comment:Auto resulted. Urine Urine specimen obtained by clean catch procedure / Unknown 07/25/2024 6:02 PM EST 07/26/2024 11:14 AM EST us Mayo Donnelly MD LAB URINE ORDERABLES Final Res ult [facility] [address] [place] [address], [place] [phone] documented in this encounter Visit Diagnoses Diagnosis Encounter for other general examination documented in this encounter Care Teams Milking Worker Relationship Specialty Start Date End Date Andree Lindquist MD PCP - General Internal Medicine 03/19/22 documented as of this encounter
--- OUTSIDE RECORDS SUMMARY | 2024-10-12 12:45 | XMS_ITS | Encounter Summary ---
Author Organization [facility] Address [address] [place] [address] Care Team Providers Care Practice Administrator Name Role Phone KtAndree Pretty Primary Care Provider [phone] Encounter Details Date Type Department Care Team (Late st Contact Info) Description 10/03/2024 Telephone [facility] [address] [place] [address] Feeder Associate: Paulette Lopes, Christen Dodd MD [address] [place] [address] Social History Tobacco Use Types Packs/Day Years Used Date Smoking Tobacco: Former Cigarettes 1 45 1 954 - 1998 Smokeless Tobacco: Never Alcohol Use Standard [...] PM EST documented as of this encounter Miscellaneous Notes * Telephone Encounter - Meseret CYRUS Coates - 10/12/2024 11:53 AM EDT Outgoing call to pt. Spoke with Martita, advised no infection per Dr. Lopes. Martita requested I pass on to Dr. Lopes that she performed a straight cath on pt this morning and re-submitted urine this morning for repeat urine sample. Sterile sample was dropped off at [facility] this morning. Also, Martita is asking about Pt's mag-ox 400mg. 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 She indicates that her PCP continued her on this medication indefinately. Should pt continue with this medication? Should she discontinue for surgery? Please advise. * Telephone Encounter - Meseret Coates LPN - 10/12/2024 11:53 AM EDT Images from the original note were not included. Urine culture Received: Today Christen Lopes MD P [facility] Urology Triage Please let patient know that she does not have an infection. ----- Message ----- * Telephone Encounter - Leslie Ross - 10/03/2024 3:44 PM EDT PA needed for Botox 100 Surgery 10/27/2024 documented in this encounter Plan of Treatment Upcoming Encounters Date Type Department Care Team (Latest Contact Info) Description 10/17/2024 8:20 AM EDT Hospital Encounter [facility] Operating Room [address] [place] [address] Christen Lopes MD [address] [place] [address] 10/17/2024 8:20 AM EDT Anesthesia Event [facility] Operating Room [address] [place] [address] Kimberley Mack DO [address] [place] [address] 10/17/2024 8:20 AM EDT - 10/17/2024 9:10 AM EDT Surgery [facility] Operating Room [address] [place] [address] Christen Lopes MD [address] [place] [address] CYSTOURETHROSCOPY WITH CHEMODENERVATION Botox 100 units [16241 (CPT??)] 06/20/2025 10:45 AM EST Follow-Up [facility] [address] [place] [address] Feeder Associate: Christen Dempsey MD [address] [place] [address] Scheduled Procedures Name Priority Associated Diagnoses Date/Ti me CYSTOURETHROSCOPY WITH CHEMODENERVATION Urge incontinence 10/17/2024 8:20 AM EDT documented as of this encounter Visit Diagnoses Not on filedocumented in this encounter Care Teams Practice Administrator Relationship Specialty Start Date End Date Andree Lindquist PCP - General Family Medicine 03/26/23 documented as of this encounter
--- OUTSIDE RECORDS SUMMARY | 2024-10-12 12:45 | XMS_ITS ---
Author Organization [facility] Address [address] [place] [address] Care Team Providers Care Wash Oil Pump Operator Name Role Phone KtAndree Pretty Primary Care Provider [phone] Active Problems Problem Noted Date Diagnosed Date [...] TotalDLP 609 mGy 609 mGy 0 mGy [id number] 10.3 mSv 10.3 mSv 0 mSv CTDIvol Max 7.2 mGy 7.2 mGy 0 mGy CTDIvol Min 5 mGy 5 mGy 0 mGy Radiation - mGy 0.7 mGy 0.7 mGy 0 mGy
--- OUTSIDE RECORDS SUMMARY | 2024-10-12 12:45 | XMS_ITS | Encounter Summary ---
Author Organization [employer] Address [address] [facility] 7t [place] [address] Care Team Providers Care Silk Washing Machine Operator Name Role Phone Unavailable Primary Care Provider [...] Description 02/21/2025 10:50 AM EDT Office Visit [facility] DENTAL [address] [place] [address] Krystal Ramesh documented as of this encounter Visit Diagnoses Not on filedocumented in this encounter Care Teams Silk Washing Machine Operator Relationship Specialty Start Date End Date Dr. Meghan Hicks Primary Care Provider 08/17/[address] Andree Lindquist [facility] Primary Care [place], [place] Primary Care Provider 08/17/22 documented as of this encounter
--- OUTSIDE RECORDS SUMMARY | 2024-10-12 12:45 | XMS_ITS | Encounter Summary ---
Author Organization [employer] Address [address] [facility] [address]t [place] [address] Care Team Providers Care News Department Intern Name Role Phone Unavailable Primary Care Provider [...] 02/21/2025 10:50 AM EDT Office Visit [facility] DENTAL [address] [place] [address] Krystal Ramesh documented as of this encounter Visit Diagnoses Not on filedocumented in this encounter Care Teams News Department Intern Relationship Specialty Start Date End Date Dr. Meghan Hicks Primary Care Provider 08/17/[address] Andree Lindquist [facility] Primary Care [place], [place] Primary Care Provider 08/17/22 documented as of this encounter
--- OUTSIDE RECORDS SUMMARY | 2024-10-12 12:45 | XMS_ITS | Encounter Summary ---
Author Organization [facility] Address [address] [place] [address] Care Team Providers Care Software Publisher Name Role Phone Andree Lindquist MD Primary Care Provider [phone] Encounter Details Date Type Department Care Team (Late st Contact Info) Description 07/25/2024 Lab Requisition [facility] - Main Lab [address] [facility] [place] [address] Mayo Donnelly MD [address] [place] [address] Encounter for other general examination Social History [...] reflex microscopic (07/24/2024 6:55 PM EST) Specific [place] Urine 1.025 1.003 - 1.030 LAB URINALYSIS - AUTOMATED METHOD 07/25/2024 1:24 PM [facility] pH, Urine 5.5 5.0 - 8.0 pH LAB URINALYSIS - AUTOMATED METHOD 07/25/2024 1:24 PM [facility] Leukocytes, Urine Moderate(A) Negative LAB URINALYSIS - AUTOMATED METHOD 07/25/2024 1:24 PM [facility] Nitrite, Urine Positive(A) Negative LAB URINALYSIS - AUTOMATED METHOD 07/25/2024 1:24 PM [facility] Protein, Urine >=300(A) <=Trace mg/dL LAB URINALYSIS - AUTOMATED METHOD 07/25/2024 1:24 PM [facility] Glucose, Urine Negative Negative mg/dL LAB URINALYSIS - AUTOMATED METHOD 07/25/2024 1:24 PM [facility] Ketones, Urine Trace(A) Negative mg/dL LAB URINALYSIS - AUTOMATED METHOD 07/25/2024 1:24 PM [facility] Urobilinogen , Urine 1.0 0.2 - 1.0 mg/dL LAB URINALYSIS - AUTOMATED METHOD 07/25/2024 1:24 PM [facility] Bilirubin, Urine Negative Negative LAB URINALYSIS - AUTOMATED METHOD 07/25/2024 1:24 PM [facility] Blood, Urine Large(A) Negative LAB URINALYSIS - AUTOMATED METHOD 07/25/2024 1:24 PM [facility] RBC, Urine >4,000(H) 0 - 4 /HPF LAB URINALYSIS - AUTOMATED METHOD 07/25/2024 1:24 PM [facility] WBC, Urine 1,000.0(H) 0 - 4 /HPF LAB URINALYSIS - AUTOMATED METHOD 07/25/2024 1:24 PM [facility] Squamous Epithelial, Urine >100(H) 0 - 60 /LPF LAB URINALYSIS - AUTOMATED METHOD 07/25/2024 1:24 PM [facility] Bacteria, Urine Many(A) Negative /HPF LAB URINALYSIS - AUTOMATED METHOD 07/25/2024 1:24 PM [facility] Hyaline Casts, Urine 0.00 0 - 3 /LPF LAB URINALYSIS - AUTOMATED METHOD 07/25/2024 1:24 PM [facility] Urine Urine specimen obtained by clean catch procedure / Unknown Non-blood Collection / Unknown 07/24/2024 6:55 PM EST 07/25/2024 10:05 AM EST Mayo Donnelly MD LAB URINE ORDERABLES Final Res ult Performing Organization Address [facility]/ZIP Co de Phone Number [facility] [address] [place] [address], [place] [phone] * Ceron urine culture tube (07/24/2024 6:55 PM EST) Extra Tube Hold for add-ons. 07/25/2024 12:01 PM [facility] Comment:Auto resulted. Urine Urine specimen obtained by clean catch procedure / Unknown Non-blood Collection / Unknown 07/24/2024 6:55 PM EST 07/25/2024 10:05 AM EST us Mayo Donnelly MD LAB URINE ORDERABLES Final Res ult Performing Organization Address [facility]/ZIP Co de Phone Number [facility] [address] [place] [address], [place] [phone] documented in this encounter Visit Diagnoses Diagnosis Encounter for other general examination documented in this encounter Care Teams Software Publisher Relationship Specialty Start Date End Date Andree Lindquist MD PCP - General Internal Medicine 03/19/22 documented as of this encounter
--- OUTSIDE RECORDS SUMMARY | 2024-10-12 12:45 | XMS_ITS | Encounter Summary ---
Author Organization [facility] Address [address] [place] [address] Care Team Providers Care Fruit Or Nut Crops Farm Manager Name Role Phone Andree Lindquist Primary Care Provider [phone] Encounter Details Date Type Department Care Team (Late st Contact Info) Description 07/22/2023 Orders Only [facility] Interventional Radiology [address] [place] [address] Guerline Vaughn MD [address] [place] [address] Social History Tobacco Use Types Packs/Day Years [...] Description 10/17/2024 8:20 AM EDT Hospital Encounter [facility] Operating Room [address] [place] [address] Christen Lopes MD [address] [place] [address] 10/17/2024 8:20 AM EDT Anesthesia Event [facility] Operating Room [address] [place] [address] Kimberley Mack DO [address] [place] [address] 10/17/2024 8:20 AM EDT - 10/17/2024 9:10 AM EDT Surgery [facility] Operating Room [address] [place] [address] Christen Lopes MD [address] [place] [address] CYSTOURETHROSCOPY WITH CHEMODENERVATION Botox 100 units [43086 (CPT??)] 06/20/2025 10:45 AM EST Follow-Up [facility]rology Clinic [address] [place] [address] Composition Mixer: Christen Dempsey MD [address] [place] [address] Scheduled Procedures Name Priority Associated Diagnoses Date/Ti me CYSTOURETHROSCOPY WITH CHEMODENERVATION Urge incontinence 10/17/2024 8:20 AM EDT documented as of this encounter Visit Diagnoses Not on filedocumented in this encounter Care Teams Fruit Or Nut Crops Farm Manager Relationship Specialty Start Date End Date Andree Lindquist PCP - General Family Medicine 03/26/23 documented as of this encounter
--- OUTSIDE RECORDS SUMMARY | 2024-10-12 12:45 | XMS_ITS | Encounter Summary ---
Author Organization [facility] Address [address] [place] [address] Care Team Providers Care Bookstore Manager Name Role Phone Andree Lindquist MD Primary Care Provider Encounter Details Date Type Department Care Team (Late st Contact Info) Description 07/24/2024 Lab Requisition [facility] - Main Lab [address] [place] [address] Mayo Donnelly MD [address] [place] [address] Encounter for other general examination Social History [...] AM EST) WBC 6.4 4.8 - 10.8 /[facility] LAB HEMETOLOGY METHOD 07/24/2024 11:31 AM [facility] RBC 3.90 3.80 - 4.80 M/mcL LAB HEMETOLOGY METHOD 07/24/2024 11:31 AM [facility] Hemoglobin 9.4(L) 11.5 - 16.0 g/dL LAB HEMETOLOGY METHOD 07/24/2024 11:31 AM [facility] Hematocrit 31.7(L) 35.0 - 47.0 % LAB HEMETOLOGY METHOD 07/24/2024 11:31 AM [facility] MCV 81.1 79.0 - 98.0 FL LAB HEMETOLOGY METHOD 07/24/2024 11:31 AM [facility] MCH 24.0(L) 27.0 - 32.0 pcg LAB HEMETOLOGY METHOD 07/24/2024 11:31 AM [facility] MCHC 29.7(L) 32.0 - 37.0 g/dL LAB HEMETOLOGY METHOD 07/24/2024 11:31 AM [facility] RDW 15.5(H) 11.0 - 15.0 % LAB HEMETOLOGY METHOD 07/24/2024 11:31 AM [facility] Platelets 315 130 - 400 K/mcL LAB HEMETOLOGY METHOD 07/24/2024 11:31 AM [facility] MPV 10.5 7.0 - 11.0 FL LAB HEMETOLOGY METHOD 07/24/2024 11:31 AM [facility] NRBC 0.0 <1.0 % LAB HEMETOLOGY METHOD 07/24/2024 11:31 AM [facility] NRBC Absolute 0.00 <0.10 K/mcL LAB HEMETOLOGY METHOD 07/24/2024 11:31 AM [facility] Blood Venous blood specimen / Unknown Venipuncture / Unknown 07/24/2024 5:17 AM EST 07/24/2024 10:19 AM EST us Mayo Donnelly MD LAB BLOOD ORDERABLES Final Res ult [facility] [address] [place] [address], [place] [phone] * (ABNORMAL) Comprehensive metabolic panel (07/24/2024 5:17 AM EST) Sodium 132(L) 133 - 145 mmol/L LAB CHEMISTRY METHOD 07/24/2024 12:19 PM [facility] Potassium 5.7(H) 3.5 - 5.5 mmol/L LAB CHEMISTRY METHOD 07/24/2024 12:19 PM [facility] Chloride 108 96 - 110 mmol/L LAB CHEMISTRY METHOD 07/24/2024 12:19 PM [facility] CO2 18(L) 21 - 32 mmol/L LAB CHEMISTRY METHOD 07/24/2024 12:19 PM [facility] Anion Gap 6 3 - 11 LAB CHEMISTRY METHOD 07/24/2024 12:19 PM [facility] Glucose 90 70 - 100 mg/dL LAB CHEMISTRY METHOD 07/24/2024 12:19 PM [facility] BUN 74(H) 5 - 25 mg/dL LAB CHEMISTRY METHOD 07/24/2024 12:19 PM [facility] Creatinine 1.54(H) 0.50 - 1.10 mg/dL LAB CHEMISTRY METHOD 07/24/2024 12:19 PM [facility] eGFR 35(L) >=60 mL/min/1. 73m2 LAB CHEMISTRY METHOD 07/24/2024 12:19 PM [facility] Comment:Calculation based on the??Chronic Kidney Disease Epidemiology Collaboration (CKD-EPI) equation refit??without adjustment for race. BUN/Creatinine Ratio 48.1 LAB CHEMISTRY METHOD 07/24/2024 12:19 PM [facility] Calcium 9.3 8.5 - 10.5 mg/dL LAB CHEMISTRY METHOD 07/24/2024 12:19 PM [facility] AST (SGOT) 20 10 - 42 unit/L LAB CHEMISTRY METHOD 07/24/2024 12:19 PM [facility] ALT (SGPT) 15 10 - 60 unit/L LAB CHEMISTRY METHOD 07/24/2024 12:19 PM [facility] Alkaline Phosphatase 72 42 - 121 unit/L LAB CHEMISTRY METHOD 07/24/2024 12:19 PM [facility] Total Protein 6.7 6.0 - 8.0 g/dL LAB CHEMISTRY METHOD 07/24/2024 12:19 PM [facility] Albumin 3.6 3.2 - 5.0 g/dL LAB CHEMISTRY METHOD 07/24/2024 12:19 PM [facility] Total Bilirubin 0.3 0.0 - 1.4 mg/dL LAB CHEMISTRY METHOD 07/24/2024 12:19 PM [facility] Blood Venous blood specimen / Unknown Venipuncture / Unknown 07/24/2024 5:17 AM EST 07/24/2024 10:19 AM EST us Mayo Donnelly MD LAB BLOOD ORDERABLES Final Res ult [facility] [address] [place] [address], documented in this encounter Visit Diagnoses Diagnosis Encounter for other general examination documented in this encounter Care Teams Bookstore Manager Relationship Specialty Start Date End Date Andree Lindquist MD PCP - General Internal Medicine 03/19/22 documented as of this encounter
--- OUTSIDE RECORDS SUMMARY | 2024-10-12 12:45 | XMS_ITS | Clinical Summary ---
Author Organization [address] Address [address] [place] [address] Phone Care Team Providers Care [employer]ge [employer] Machine Repairer Name Role Phone Andree Lindquist MD Primary Care Provider [phone] Encounters Date Type Department Care Team Description 08/01/2024 Lab Requisition [facility] Lab [address] [place] [address] Mayo Donnelly MD Encounter for other general examination 07/27/2024 Lab Requisition [facility] Lab [address] [place] [address] Mayo Donnelly MD Encounter for other general examination 07/26/2024 Lab Requisition [facility] Lab [address] [place] [address] Mayo Donnelly MD Encounter for other general examination 07/25/2024 Lab Requisition [facility] [address] [place] [address] Mayo Donnelly MD Encounter for other general examination 07/25/2024 Lab Requisition [facility] [address] [place] [address] Mayo Donnelly MD Encounter for other general examination 07/24/2024 Lab Requisition [facility] [address] [place] [address] Mayo Donnelly MD Encounter for other general examination 07/21/2024 Lab Requisition [facility] [address] [place] [phone] Mayo Donnelly MD Encounter for other general examination 07/16/2024 Lab Requisition [facility] [address] [place] [phone] Mayo Donnelly MD Encounter for other general [...] dr. logan, no intervention, 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[facility]) 11/28/2012 DX:Diabetes shelton itus type 2 with neurological manifestations ([facility]); COMMENT: PMH of carpal tunnel Type 2 diabetes mellitus wit h cataract 03/25/2015 DX:Type 2 diabetes mellitus with cataract ([facility]); COMMENT: Cataracts Parkinson disease ([facility]) 10/16/2015 DX:P arkinson disease ([facility]) Closed fracture of right dis sona [...] (Age mid 70's) 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 cancer, 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) Mother (Age mid 70's) Sister 1 Sister [...] Influencers of Health Screening 06/20/2022 RSV Immunization Adult Patients (1 - 1-dose 75+ series) 10/19/2022 COVID-19 Vaccine ( season) 2024 05/28/2021, 09/26/2020, 09/05/2020 Influenza Vaccine (#1) 2024 , 06/08/2022, 05/26/2021, Additional history exists Diabetes: Annual GFR (Glomerular Filtration Rate) 08/01/2025 08/01/2024, 07/27/2024, 07/25/2024, Additional history exists Hypertension/CHF/CAD Annual BMP Blood Test 08/01/2025 08/01/2024, 07/27/2024, 07/25/2024, Additional history exists Pneumococcal Vaccine: 50+ Years Completed 08/05/2016, 12/31/2014, 03/27/2009 Breast Cancer Screening Discontinued 02, 09/02/2020, 08/28/2019, Additional history exists HIB Vaccines [...] is included. WBC 11.1(H) 4.8 - 10.8 K/[facility] LAB HEMETOLOGY METHOD 08/01/2024 10:45 AM EST [facility] RBC 3.80 3.80 - [...] Final Res ult [facility] [address] [place] [address], * (ABNORMAL) Comprehensive metabolic panel (08/01/2024 4:56 AM EST) Only the most recent of5 resultswithin the time period is included. Sodium 136 133 - 145 mmol/L LAB CHEMISTRY METHOD 08/01/2024 11:16 AM [facility] Potassium 5.5 3.5 - [...] Final Res ult [facility] [address] [place] [address], [place] [phone] * (ABNORMAL) Urinalysis with reflex microscopic and culture (07/25/2024 6:02 PM EST) Specific [place] Urine 1.025 1.003 - 1.030 LAB URINALYSIS - AUTOMATED METHOD 07/26/2024 12:32 PM [facility] pH, Urine 6.5 5.0 - 8.0 pH LAB URINALYSIS - AUTOMATED METHOD 07/26/2024 12:32 PM [facility] Leukocytes, Urine Small(A) Negative LAB URINALYSIS - AUTOMATED METHOD 07/26/2024 12:32 PM [facility] Nitrite, Urine Positive(A) Negative LAB URINALYSIS - AUTOMATED METHOD 07/26/2024 12:32 PM [facility] Protein, Urine >=300(A) <=Trace mg/dL LAB URINALYSIS - AUTOMATED METHOD 07/26/2024 12:32 PM [facility] Glucose, Urine Negative Negative mg/dL LAB URINALYSIS - AUTOMATED METHOD 07/26/2024 12:32 PM [facility] Ketones, Urine Negative Negative mg/dL LAB URINALYSIS - AUTOMATED METHOD 07/26/2024 12:32 PM [facility] Urobilinogen , Urine 0.2 0.2 - 1.0 mg/dL LAB URINALYSIS - AUTOMATED METHOD 07/26/2024 12:32 PM [facility] Bilirubin, Urine Negative Negative LAB URINALYSIS - AUTOMATED METHOD 07/26/2024 12:32 PM [facility] Blood, Urine Large(A) Negative LAB URINALYSIS - AUTOMATED METHOD 07/26/2024 12:32 PM [facility] RBC, Urine >200 /HPF 07/26/2024 12:32 PM [facility] WBC, Urine 15 /HPF 07/26/2024 12:32 PM [facility] Bacteria, Urine 2+(A) (none) /HPF 07/26/2024 12:32 PM [facility] Urine Urine specimen obtained by clean catch procedure / Unknown 07/25/2024 6:02 PM EST 07/26/2024 11:14 AM EST us Mayo Donnelly MD LAB URINE ORDERABLES Final Res ult [facility] [address] [place] [address], [place] [phone] * Ceron urine culture tube (07/25/2024 6:02 PM EST) Only the most recent of2 resultswithin the time period is included. Extra Tube Hold for add-ons. 07/26/2024 1:01 PM EST [facility] Comment:Auto resulted. Urine Urine specimen obtained by clean catch procedure / Unknown 07/25/2024 6:02 PM EST 07/26/2024 11:14 AM EST us Mayo Donnelly MD LAB URINE ORDERABLES Final Res ult [facility] [address] [place] [address], [place] [phone] * (ABNORMAL) Culture urine (07/25/2024 6:02 PM EST) Culture, Urine >100,000 CFU/mL Escherichia coli(A) YARED 07/29/2024 8:22 AM EST [facility] Culture, Urine 10,000-49,000 CFU/mL Enterococcus faecalis(A) YARED 07/29/2024 8:22 AM EST [facility] Comment: The organism value for this result has been updated. These results have been appended to the previously preliminary verified report. Edited result: Previously reported as Gram Positive Cocci on 07/28/2024 at 1053 EST. Urine Urine specimen obtained by clean catch procedure / Unknown 07/25/2024 6:02 PM EST 07/26/2024 12:32 PM EST [facility] - 07/29/2024 8:22 AM EST [...] MICROBIOLOGY - GENERAL ORD ERABLES Final Result [facility] [address] [place] [address], * (ABNORMAL) Basic metabolic panel (07/25/2024 4:31 AM EST) Sodium 135 133 - 145 mmol/L LAB CHEMISTRY METHOD 07/25/2024 11:01 AM EST [facility] Potassium 5.5 3.5 - 5.5 mmol/L LAB CHEMISTRY METHOD 07/25/2024 11:01 AM EST [facility] Comment:Hemolysis present Chloride 111(H) 96 - 110 mmol/L LAB CHEMISTRY METHOD 07/25/2024 11:01 AM EST [facility] CO2 16(L) 21 - 32 mmol/L LAB CHEMISTRY METHOD 07/25/2024 11:01 AM [facility] Anion Gap 8 3 - 11 LAB CHEMISTRY METHOD 07/25/2024 11:01 AM [facility] Glucose 85 70 - 100 mg/dL LAB CHEMISTRY METHOD 07/25/2024 11:01 AM [facility] BUN 66(H) 5 - 25 mg/dL LAB CHEMISTRY METHOD 07/25/2024 11:01 AM [facility] Creatinine 1.20(H) 0.50 - 1.10 mg/dL LAB CHEMISTRY METHOD 07/25/2024 11:01 AM [facility] eGFR 47(L) >=60 mL/min/1. 73m2 LAB CHEMISTRY METHOD 07/25/2024 11:01 AM [facility] Comment:Calculation based on the??Chronic Kidney Disease Epidemiology Collaboration (CKD-EPI) equation refit??without adjustment for race. BUN/Creatinine Ratio 55.0 LAB CHEMISTRY METHOD 07/25/2024 11:01 AM [facility] Calcium 9.2 8.5 - 10.5 mg/dL LAB CHEMISTRY METHOD 07/25/2024 11:01 AM [facility] Blood Venous blood specimen / Unknown Venipuncture / Unknown 07/25/2024 4:31 AM EST 07/25/2024 9:59 AM EST us Mayo Donnelly MD LAB BLOOD ORDERABLES Final Res ult [facility] [address] [place] [address], * (ABNORMAL) Urinalysis with reflex microscopic (07/24/2024 6:55 PM EST) Specific [place] Urine 1.025 1.003 - 1.030 LAB URINALYSIS - AUTOMATED METHOD 07/25/2024 1:24 PM [facility] pH, Urine 5.5 5.0 - 8.0 pH LAB URINALYSIS - AUTOMATED METHOD 07/25/2024 1:24 PM [facility] Leukocytes, Urine Moderate(A) Negative LAB URINALYSIS - AUTOMATED METHOD 07/25/2024 1:24 PM [facility] Nitrite, Urine Positive(A) Negative LAB URINALYSIS - AUTOMATED METHOD 07/25/2024 1:24 PM [facility] Protein, Urine >=300(A) <=Trace mg/dL LAB URINALYSIS - AUTOMATED METHOD 07/25/2024 1:24 PM [facility] Glucose, Urine Negative Negative mg/dL LAB URINALYSIS - AUTOMATED METHOD 07/25/2024 1:24 PM [facility] Ketones, Urine Trace(A) Negative mg/dL LAB URINALYSIS - AUTOMATED METHOD 07/25/2024 1:24 PM [facility] Urobilinogen , Urine 1.0 0.2 - 1.0 mg/dL LAB URINALYSIS - AUTOMATED METHOD 07/25/2024 1:24 PM [facility] Bilirubin, Urine Negative Negative LAB URINALYSIS - AUTOMATED METHOD 07/25/2024 1:24 PM [facility] Blood, Urine Large(A) Negative LAB URINALYSIS - AUTOMATED METHOD 07/25/2024 1:24 PM [facility] RBC, Urine >4,000(H) 0 - 4 /HPF LAB URINALYSIS - AUTOMATED METHOD 07/25/2024 1:24 PM [facility] WBC, Urine 1,000.0(H) 0 - 4 /HPF LAB URINALYSIS - AUTOMATED METHOD 07/25/2024 1:24 PM [facility] Squamous Epithelial, Urine >100(H) 0 - 60 /LPF LAB URINALYSIS - AUTOMATED METHOD 07/25/2024 1:24 PM [facility] Bacteria, Urine Many(A) Negative /HPF LAB URINALYSIS - AUTOMATED METHOD 07/25/2024 1:24 PM [facility] Hyaline Casts, Urine 0.00 0 - 3 /LPF LAB URINALYSIS - AUTOMATED METHOD 07/25/2024 1:24 PM [facility] Urine Urine specimen obtained by clean catch procedure / Unknown Non-blood Collection / Unknown 07/24/2024 6:55 PM EST 07/25/2024 10:05 AM EST us Mayo Donnelly MD LAB URINE ORDERABLES Final Res ult [facility] [address] [place] [address], * (ABNORMAL) CBC auto differential (07/16/2024 5:30 AM EST) WBC 5.8 4.8 - 10.8 K/mcL LAB HEMETOLOGY METHOD 07/16/2024 10:35 AM [facility] RBC 3.80 3.80 - 4.80 M/[facility] LAB HEMETOLOGY METHOD 07/16/2024 10:35 AM [facility] Hemoglobin 9.2(L) 11.5 - 16.0 g/dL LAB HEMETOLOGY METHOD 07/16/2024 10:35 AM [facility] Hematocrit 30.8(L) 35.0 - 47.0 % LAB HEMETOLOGY METHOD 07/16/2024 10:35 AM [facility] MCV 80.8 79.0 - 98.0 FL LAB HEMETOLOGY METHOD 07/16/2024 10:35 AM [facility] MCH 24.1(L) 27.0 - 32.0 pcg LAB HEMETOLOGY METHOD 07/16/2024 10:35 AM [facility] MCHC 29.9(L) 32.0 - 37.0 g/dL LAB HEMETOLOGY METHOD 07/16/2024 10:35 AM [facility] RDW 14.9 11.0 - 15.0 % LAB HEMETOLOGY METHOD 07/16/2024 10:35 AM [facility] Platelets 247 130 - 400 K/mcL LAB HEMETOLOGY METHOD 07/16/2024 10:35 AM [facility] MPV 10.8 7.0 - 11.0 FL LAB HEMETOLOGY METHOD 07/16/2024 10:35 AM [facility] NRBC 0.0 <1.0 % LAB HEMETOLOGY METHOD 07/16/2024 10:35 AM [facility] NRBC Absolute 0.00 <0.10 K/mcL LAB HEMETOLOGY METHOD 07/16/2024 10:35 AM [facility] Neutrophils Relative 69.6 % LAB HEMETOLOGY METHOD 07/16/2024 10:35 AM [facility] Lymphocytes Relative 16.7 % LAB HEMETOLOGY METHOD 07/16/2024 10:35 AM [facility] Monocytes Relative 10.1 % LAB HEMETOLOGY METHOD 07/16/2024 10:35 AM [facility] Eosinophils Relative 3.1 % LAB HEMETOLOGY METHOD 07/16/2024 10:35 AM [facility] Basophils Relative 0.2 % LAB HEMETOLOGY METHOD 07/16/2024 10:35 AM [facility] Immature Granulocytes Relative 0.3 % LAB HEMETOLOGY METHOD 07/16/2024 10:35 AM [facility] Neutrophils Absolute 4.01 1.50 - 7.00 K/mcL LAB HEMETOLOGY METHOD 07/16/2024 10:35 AM [facility] Lymphocytes Absolute 0.96(L) 1.00 - 5.00 K/mcL LAB HEMETOLOGY METHOD 07/16/2024 10:35 AM EST [facility] Monocytes Absolute 0.58 0.20 - 1.00 K/[facility] LAB HEMETOLOGY METHOD 07/16/2024 10:35 AM EST [facility] Eosinophils Absolute 0.18 0.00 - 0.50 K/[facility] LAB HEMETOLOGY METHOD 07/16/2024 10:35 AM EST [facility] Basophils Absolute 0.01 0.00 - 0.20 K/[facility] LAB HEMETOLOGY METHOD 07/16/2024 10:35 AM EST [facility] Immature Granulocytes Absolute 0.02 0.00 - 0.03 K/[facility] LAB HEMETOLOGY METHOD 07/16/2024 10:35 AM [facility] Blood Venous blood specimen / Unknown Venipuncture / Unknown 07/16/2024 5:30 AM EST 07/16/2024 9:10 AM EST Mayo Donnelly MD LAB BLOOD ORDERABLES Final Res ult [facility] [address] [place] [address], [place] [phone] * (ABNORMAL) Magnesium (07/16/2024 5:30 AM EST) Magnesium 1.6(L) 1.9 - 2.6 mg/dL LAB CHEMISTRY METHOD 07/16/2024 10:49 AM EST [facility] Blood Venous blood specimen / Unknown Venipuncture / Unknown 07/16/2024 5:30 AM EST 07/16/2024 9:10 AM EST Mayo Donnelly MD LAB BLOOD ORDERABLES Final Res ult [facility] [address] [place] [address], [place] [phone] * SCREENING MAMMOGRAPHY BI 2-VIEW BREAST INC [...] Documents on File Type Date Recorded Patient Ichthyology Teacher Expl anation Health Care Decision (hx) 07/13/2012 AD RAYGOZA DIRECTIVE Health Care Decision (hx) 07/13/2012 AD RAYGOZA DIRECTIVE Health Care Decision (hx) 07/13/2012 AD RAYGOZA DIRECTIVE Health Care Decision (hx) 07/13/2012 AD RAYGOZA DIRECTIVE Care Teams 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
== END 2024-10-12 11:28 | disposition home or self-care (01) ==
LOC: HO.LNP 11:27
PROVIDERS: Visit Provider Internal Medicine
DX: R30.0 Dysuria (principal)
CPT/HCPCS: 81001; 87086; 87088

== ENCOUNTER 2024-11-20 08:23 | Outpatient (REF) | payer MEDICARE, SELFPAY ==
[2024-11-20 10:54] LABS: MANUAL DIFF FLAG NO
--- OUTSIDE RECORDS SUMMARY | 2024-11-20 11:18 | XMS_ITS | Encounter Summary ---
Author Organization [facility] Address [address] [place] [address] Care Team Providers Care Spa Consultant Name Role Phone Meghan Hicks MD Primary Care Provider Beatrice Garvey MD Unavailable [facility], Pcp Primary Care Provider Meghan Chacko MD Primary Care Provider Andree Stallworth MD Primary Care Provider Janene barcenas Encounter Details Date Type Department Care Team Description 07/23/2015 Pt. Non Urgent Medic al Question Medicine/Pediatrics - [address] [phone] Meghan Hicks MD Social History Tobacco Use [...] Progress Notes * Arlin Mccarthy L.P.N. - 07/23/2015 4:02 PM ESTFrom: Francine Jezever To: Meghan Hicks MD Sent: 07/23/2015 3:22 PM EST Subject: New perscription Yesterday when I was in dr hicks was sending a new perscription to [facility] in [place] for me.The pharmacy as of today did not receive the perscription documented in this encounter Plan of Treatment Not on file documented as of this encounter Visit Diagnoses Not on filedocumented in this encounter Care Teams Spa Consultant Relationship Specialty Start Date End Date Meghan Hicks MD PCP - General Internal Medicine 04/08/12 01/15/22 [facility], Pcp PCP - General Internal Medicine 01/16/22 03/05/22 Meghan Hicks MD PCP - General Internal Medicine 03/06/22 03/18/22 Andree Gonzalez MD PCP - General Internal Medicine 03/19/22 Beatrice Holloway MD Specialist Cardiology 07/31/21 documented as of this encounter
--- OUTSIDE RECORDS SUMMARY | 2024-11-20 11:18 | XMS_ITS | Encounter Summary ---
Author Organization [facility] Address [address] [place] [address] Care Team Providers Care Minute Clerk Name Role Phone Meghan Hicks MD Primary Care Provider Beatrice Garvey MD Unavailable [facility], [facility] Primary Care Provider Unavailabl Meghan Pereira MD Primary Care Provider Unava Andree Nicholas MD Primary Care Provider Unavaila ble Reason for Visit * Reason Onset Date Comments Provider Call Back 07/07/2012 Encounter Details Date Type Department Care Team Description 07/07/2012 Telephone General Surgery [address] [place] [address] Lester Brady MD [address] [place] [address] Provider Call Back; Social History Tobacco Use Types Packs/Day Years [...] Telephone Encounter - Meghan Hicks MD - 07/22/2012 12:57 PM EST Patient was actually seen this morning here. She was seen here yesterday sent for x-ray, venous Doppler and then sent to the emergency room and it was positive so that the CT angiogram could be done.She looks relatively good though she does get fatigued easily. She is seeing me this afternoon. Antibiotics were changed around as her last urine culture was resistant to Levaquin. She is now on Macrobid. She was placed on doxycycline for possible pneumonia but there is no availability of this medicine. She is now on azithromycin. The chest x-ray look like she had a pneumonia but the CT angiogramwas not clear. * Telephone Encounter - Lester Brady MD - 07/22/2012 12:50 PM EST Please call the patient today. She was seen in the emergency room yesterday and has pulmonary problems in the deep venous thrombosis. A pulmonary embolus was ruled out. She needs to followup with herprimary care team on Wednesday. * Telephone Encounter - Francine Kang C.M.A. - 07/08/2012 1:31 PM EST Please review. * Telephone Encounter - Meseret Macario - 07/07/2012 1:54 PM EST Patient wanted to make sure that Dr. 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) please call pt to confirm he knows this documented in this encounter Plan of Treatment Not on file documented as of this encounter Visit Diagnoses Not on filedocumented in this encounter Care Teams Minute Clerk Relationship Specialty Start Date End Date Meghan Hicks MD PCP - General Internal Medicine 04/08/12 01/15/22 [facility], Pcp PCP - General Internal Medicine 01/16/22 03/05/22 Meghan Hicks MD PCP - General Internal Medicine 03/06/22 03/18/22 Andree Gonzalez MD PCP - General Internal Medicine 03/19/22 Beatrice Holloway MD Specialist Cardiology 07/31/21 documented as of this encounter
--- OUTSIDE RECORDS SUMMARY | 2024-11-20 11:18 | XMS_ITS | Encounter Summary ---
Author Organization [facility] Address [address] [place] [address] Care Team Providers Care Wire Annealer Name Role Phone Meghan Hicks MD Primary Care Provider Beatrice Garvey MD Unavailable [facility], Pcp Primary Care Provider Unavailabl e Meghan Hicks MD Primary Care Provider Andree Stallworth MD Primary Care Provider Unavaila narinder Encounter Details Date Type Department Care Team Description 08/05/2015 Communications Specialist Report Medical Records [address] [place] [phone] Mitzi Larios Dpm, DPM Social History Tobacco Use Types Packs/Day Years [...] on filedocumented in this encounter Care Teams Wire Annealer Relationship Specialty Start Date End Date Meghan [...]
--- OUTSIDE RECORDS SUMMARY | 2024-11-20 11:18 | XMS_ITS | Encounter Summary ---
Author Organization [facility] Address [address] [place] [address] Care Team Providers Care Meterman Name Role Phone Meghan Hicks MD Primary Care Provider Beatrice Garvey MD Unavailable [facility], Pcp Primary Care Provider Meghan Chacko MD Primary Care Provider Andree Stallworth MD Primary Care Provider Janene barcenas Encounter Details Date Type Department Care Team Description 10/01/2014 Pt. Non Urgent Medic al Question Medicine/Pediatrics - [address] [id number] Meghan Hicks MD Social History Tobacco Use [...] on filedocumented in this encounter Care Teams Meterman Relationship Specialty Start Date End Date Meghan Hicks MD PCP - General Internal Medicine 04/08/12 01/15/22 [facility], Pcp PCP - General Internal Medicine 01/16/22 03/05/22 Meghan Hicks MD PCP - General Internal Medicine 03/06/22 03/18/22 Andree Gonzalez MD PCP - General Internal Medicine 03/19/22 Beatrice Holloway MD Specialist Cardiology 07/31/21 documented as of this encounter
--- OUTSIDE RECORDS SUMMARY | 2024-11-20 11:18 | XMS_ITS | Encounter Summary ---
Author Organization [facility] Address [address] [place] [address] Care Team Providers Care Industrial Commercial Groundskeeper Name Role Phone Meghan Hicks MD Primary Care Provider Beatrice Garvey MD Unavailable [facility], Pcp Primary Care Provider Unavailabl e Meghan Hicks MD Primary Care Provider Andree Stallworth MD Primary Care Provider Unavailnathaly barcenas Encounter Details Date Type Department Care Team Description 02/11/2015 Devops Report Medical Records [address] [place] [phone] Geraldo Reis MD, MD Social History Tobacco [...] on filedocumented in this encounter Care Teams Industrial Commercial Groundskeeper Relationship Specialty Start Date End Date Meghan Hicks MD PCP - General Internal Medicine 04/08/12 01/15/22 [facility], Pcp PCP - General Internal Medicine 01/16/22 03/05/22 Meghan Hicks MD PCP - General Internal Medicine 03/06/22 03/18/22 Andree Gonzalez MD PCP - General Internal Medicine 03/19/22 Beatrice Holloway MD Specialist Cardiology 07/31/21 documented as of this encounter
--- OUTSIDE RECORDS SUMMARY | 2024-11-20 11:18 | XMS_ITS | Encounter Summary ---
Author Organization [facility] Address [address] [place] [address] Care Team Providers Care Household Personal Assistant Name Role Phone Meghan Hicks MD Primary Care Provider Beatrice Garvey MD Unavailable [facility], Pcp Primary Care Provider Unavailabl e Meghan Hicks MD Primary Care Provider Andree Stallworth MD Primary Care Provider Unavailnathaly barcenas Encounter Details Date Type Department Care Team Description 11/05/2014 Sales Superintendent Report Medical Records [address] [place] [phone] Geraldo Reis MD, MD Social History Tobacco [...] on filedocumented in this encounter Care Teams Household Personal Assistant Relationship Specialty Start Date End Date Meghan Hicks MD PCP - General Internal Medicine 04/08/12 01/15/22 [facility], Pcp PCP - General Internal Medicine 01/16/22 03/05/22 Meghan Hicks MD PCP - General Internal Medicine 03/06/22 03/18/22 Andree Gonzalez MD PCP - General Internal Medicine 03/19/22 Beatrice Holloway MD Specialist Cardiology 07/31/21 documented as of this encounter
--- OUTSIDE RECORDS SUMMARY | 2024-11-20 11:18 | XMS_ITS | Encounter Summary ---
Author Organization [facility] Address [address] [place] [address] Care Team Providers Care German Tutor Name Role Phone Mayo Donnelly MD Primary Care Provider [phone] Encounter Details Date Type Department Care Team (Late st Contact Info) Description 07/25/2024 Lab Requisition [facility] - Main Lab [address] [place] [address] Mayo Donnelly MD [address] [place] [phone] Encounter for other general examination Social History [...] LAB CHEMISTRY METHOD 07/25/2024 11:01 AM EST [facility] Potassium 5.5 3.5 - 5.5 mmol/L LAB CHEMISTRY METHOD 07/25/2024 11:01 AM [facility] Comment:Hemolysis present Chloride 111(H) 96 - 110 mmol/L LAB CHEMISTRY METHOD 07/25/2024 11:01 AM [facility] CO2 16(L) 21 - 32 mmol/L LAB CHEMISTRY METHOD 07/25/2024 11:01 AM [facility] Anion Gap 8 3 - 11 LAB CHEMISTRY METHOD 07/25/2024 11:01 AM [facility] Glucose 85 70 - 100 mg/dL LAB CHEMISTRY METHOD 07/25/2024 11:01 AM [facility] BUN 66(H) 5 - 25 mg/dL LAB CHEMISTRY METHOD 07/25/2024 11:01 AM [facility] Creatinine 1.20(H) 0.50 - 1.10 mg/dL LAB CHEMISTRY METHOD 07/25/2024 11:01 AM [facility] eGFR 47(L) >=60 mL/min/1. 73m2 LAB CHEMISTRY METHOD 07/25/2024 11:01 AM [facility] Comment:Calculation based on the??Chronic Kidney Disease Epidemiology Collaboration (CKD-EPI) equation refit??without adjustment for race. BUN/Creatinine Ratio 55.0 LAB CHEMISTRY METHOD 07/25/2024 11:01 AM [facility] Calcium 9.2 8.5 - 10.5 mg/dL LAB CHEMISTRY METHOD 07/25/2024 11:01 AM [facility] Blood Venous blood specimen / Unknown Venipuncture / Unknown 07/25/2024 4:31 AM EST 07/25/2024 9:59 AM EST us Mayo Donnelly MD LAB BLOOD ORDERABLES Final Res ult [facility] [address] [place] [address], documented in this encounter Visit Diagnoses Diagnosis Encounter for other general examination documented in this encounter Care Teams German Tutor Relationship Specialty Start Date End Date Mayo Donnelly MD [address] [place] [id number] PCP - General Internal Medicine 11/06/24 documented as of this encounter
--- OUTSIDE RECORDS SUMMARY | 2024-11-20 11:18 | XMS_ITS | Encounter Summary ---
Author Organization [facility] Address [address] [place] [address] Care Team Providers Care Laborer Tin Can Name Role Phone Meghan Hicks MD Primary Care Provider Beatrice Garvey MD Unavailable [facility], [facility] Primary Care Provider UnavailMeghan Jones MD Primary Care Provider Andree Stallworth MD Primary Care Provider Unavaila ble Encounter Details Date Type Department Care Team Description 04/19/2015 Orders Only Medicine/Pediatrics - [address] [phone] Sierra Cota PA-C Paresthesia (Primary Dx) Social [...] NEGATIVE NEGATIVE 04/22/2015 10:07 AM EDT [facility] 04/19/2015 4:22 PM EDT 04/19/2015 4:22 PM EDT Sierra Cota PA-C LAB [facility] documented in this encounter Visit Diagnoses Diagnosis Paresthesia- Primary Disturbance of skin sensation documented in this encounter Care Teams Laborer Tin Can Relationship Specialty Start Date End Date Meghan Hicks MD PCP - General Internal Medicine 04/08/12 01/15/22 [facility] PCP - General Internal Medicine 01/16/22 03/05/22 Meghna Hicks MD PCP - General Internal Medicine 03/06/22 03/18/22 Andree Gonzalez MD PCP - General Internal Medicine 03/19/22 Beatrice Holloway MD Specialist Cardiology 07/31/21 documented as of this encounter
--- OUTSIDE RECORDS SUMMARY | 2024-11-20 11:18 | XMS_ITS | Encounter Summary ---
Author Organization [facility] Address [address] [place] [address] Care Team Providers Care Marine Habitat Resource Specialist Name Role Phone Mayo Donnelly MD Primary Care Provider [phone] Encounter Details Date Type Department Care Team (Late st Contact Info) Description 11/13/2024 Lab Requisition [facility] - Main Lab [address] [facility] [employer] [place] [address] Mayo Donnelly MD [address] [place] [phone] Encounter for other general examination Social History [...] CBC auto differential (11/13/2024 6:23 AM EDT) [facility] WBC 7.0 4.8 - 10.8 K/mcL LAB HEMETOLOGY METHOD 11/13/2024 1:11 PM [facility] RBC 4.00 3.80 - 4.80 M/mcL LAB HEMETOLOGY METHOD [facility]/13[facility] Hemoglobin 8.9(L) 11.5 - 16.0 g/dL LAB HEMETOLOGY METHOD 11/13/2024 1[facility] Hematocrit 29.8(L) 35.0 - 47.0 % LAB HEMETOLOGY METHOD 11/13/2024 1:11 PM [facility] MCV 74.5(L) 79.0 - 98.0 FL LAB HEMETOLOGY METHOD 11/13/2024 1[facility] MCH 22.3(L) 27.0 - 32.0 pcg LAB HEMETOLOGY METHOD 11/13/2024 1:[facility] MCHC 29.9(L) 32.0 - 37.0 g/dL LAB HEMETOLOGY METHOD 11/13/2024 1:11 PM [facility] RDW 19.4(H) 11.0 - 15.0 % LAB HEMETOLOGY METHOD 11/13/2024 1:11 PM [facility] Platelets 474(H) 130 - 400 K/mcL LAB HEMETOLOGY METHOD 11/13/2024 1:[facility] MPV 9.7 7.0 - 11.0 FL LAB HEMETOLOGY METHOD 11/13/2024 1:11 PM [facility] NRBC 0.0 <1.0 % LAB HEMETOLOGY METHOD 11/13/2024 1[facility] NRBC Absolute 0.00 <0.10 K/mcL LAB HEMETOLOGY METHOD 11/13/2024 1:11 PM [facility] Neutrophils Relative 67.0 % LAB HEMETOLOGY METHOD 11/13/2024 1:11 PM [facility] Lymphocytes Relative 21.2 % LAB HEMETOLOGY METHOD 11/13/2024 1:11 PM [facility] Monocytes Relative 8.4 % LAB HEMETOLOGY METHOD 11/13/2024 1:11 PM [facility] Eosinophils Relative 2.3 % LAB HEMETOLOGY METHOD 11/13/2024 1:11 PM [facility] Basophils Relative 0.7 % LAB HEMETOLOGY METHOD 11/13/2024 1:11 PM [facility] Immature Granulocytes Relative 0.4 % LAB HEMETOLOGY METHOD 11/13/2024 1:11 PM [facility] Neutrophils Absolute 4.68 1.50 - 7.00 K/mcL LAB HEMETOLOGY METHOD 11/13/2024 1:11 PM [facility] Lymphocytes Absolute 1.48 1.00 - 5.00 K/mcL LAB HEMETOLOGY METHOD 11/13/2024 1:11 PM [facility] Monocytes Absolute 0.59 0.20 - 1.00 K/mcL LAB HEMETOLOGY METHOD 11/13/2024 1:11 PM [facility] Eosinophils Absolute 0.16 0.00 - 0.50 K/mcL LAB HEMETOLOGY METHOD 11/13/2024 1:11 PM [facility] Basophils Absolute 0.05 0.00 - 0.20 K/mcL LAB HEMETOLOGY METHOD 11/13/2024 1:11 PM [facility] Immature Granulocytes Absolute 0.03 0.00 - 0.03 K/mcL LAB HEMETOLOGY METHOD 11/13/2024 1:11 PM [facility] Blood Venous blood specimen / Unknown Venipuncture / Unknown 11/13/2024 6:23 AM EDT 11/13/2024 10:11 AM EDT us Mayo Donnelly MD LAB BLOOD ORDERABLES Final Res ult [facility] [address] [place] [address], [place] [phone] * (ABNORMAL) Basic metabolic panel (11/13/2024 6:23 AM EDT) Sodium 135 133 - 145 mmol/L LAB CHEMISTRY METHOD 11/13/2024 1:09 PM [facility] Potassium 5.1 3.5 - 5.5 mmol/L LAB CHEMISTRY METHOD 11/13/2024 1:09 PM [facility] Chloride 103 96 - 110 mmol/L LAB CHEMISTRY METHOD 11/13/2024 1:09 PM [facility] CO2 23 21 - 32 mmol/L LAB CHEMISTRY METHOD 11/13/2024 1:09 PM [facility] Anion Gap 9 3 - 11 LAB CHEMISTRY METHOD 11/13/2024 1:09 PM [facility] Glucose 105(H) 70 - 100 mg/dL LAB CHEMISTRY METHOD 11/13/2024 1:09 PM [facility] BUN 34(H) 5 - 25 mg/dL LAB CHEMISTRY METHOD 11/13/2024 1:09 PM [facility] Creatinine 1.04 0.50 - 1.10 mg/dL LAB CHEMISTRY METHOD 11/13/2024 1:09 PM [facility] eGFR 55(L) >=60 mL/min/1. 73m2 LAB CHEMISTRY METHOD 11/13/2024 1:09 PM [facility] Comment:Calculation based on the??Chronic Kidney Disease Epidemiology Collaboration (CKD-EPI) equation refit??without adjustment for race. BUN/Creatinine Ratio 32.7 LAB CHEMISTRY METHOD 11/13/2024 1:09 PM EDT [facility] Calcium 9.6 8.5 - 10.5 mg/dL LAB CHEMISTRY METHOD 11/13/2024 1:09 PM EDT [facility] Blood Venous blood specimen / Unknown Venipuncture / Unknown 11/13/2024 6:23 AM EDT 11/13/2024 10:11 AM EDT us Mayo Donnelly MD LAB BLOOD ORDERABLES Final Res ult [facility] [address] [place] [address], [place] [phone] documented in this encounter Visit Diagnoses Diagnosis Encounter for other general examination documented in this encounter Care Teams Marine Habitat Resource Specialist Relationship Specialty Start Date End Date Mayo Donnelly MD [address] [place] [address] PCP - General Internal Medicine 11/06/24 documented as of this encounter
--- OUTSIDE RECORDS SUMMARY | 2024-11-20 11:18 | XMS_ITS | Encounter Summary ---
Author Organization [facility] Address [address] [place] [address] Care Team Providers Care Hardware Technician Name Role Phone Meghan Hicks MD Primary Care Provider Beatrice Garvey MD Unavailable [facility], Pcp Primary Care Provider Unavailabl e Meghan Hicks MD Primary Care Provider Andree Stallworth MD Primary Care Provider Unavailnathaly barcenas Encounter Details Date Type Department Care Team Description 05/08/2015 Office Inspector Report Medical Records [address] [place] [phone] Ashok Forbes MD Social History Tobacco Use [...] on filedocumented in this encounter Care Teams Hardware Technician Relationship Specialty Start Date End Date Meghan Hicks MD PCP - General Internal Medicine 04/08/12 01/15/22 [facility], Pcp PCP - General Internal Medicine 01/16/22 03/05/22 Meghan Hicks MD PCP - General Internal Medicine 03/06/22 03/18/22 Andree Gonzalez MD PCP - General Internal Medicine 03/19/22 Beatrice Holloway MD Specialist Cardiology 07/31/21 documented as of this encounter
--- OUTSIDE RECORDS SUMMARY | 2024-11-20 11:18 | XMS_ITS | Encounter Summary ---
Author Organization [facility] Address [address] [place] [address] Care Team Providers Care Volleyball Commentator Name Role Phone Mayo Donnelly MD Primary Care Provider [phone] Encounter Details Date Type Department Care Team (Late st Contact Info) Description 11/06/2024 Lab Requisition [facility] - Main Lab [address] [place] [address] Mayo Donnelly MD [address] [place] [address] Encounter for other general examination Social History [...] LAB CHEMISTRY METHOD 11/06/2024 12:59 PM EDT [facility] ([facility]) [facility] Blood Venous blood specimen / Unknown Venipuncture / Unknown 11/06/2024 6:24 AM EDT 11/06/2024 10:07 AM EDT us Mayo Donnelly MD LAB BLOOD ORDERABLES Final Res ult Performing Organization Address City/State/[facility] Co de Phone Number [facility] ([facility]) [facility] [address] [place] [address], documented in this encounter Visit Diagnoses Diagnosis Encounter for other general examination documented in this encounter Care Teams Volleyball Commentator Relationship Specialty Start Date End Date Mayo Donnelly MD [address] [place] [id number] PCP - General Internal Medicine 11/06/24 documented as of this encounter
--- OUTSIDE RECORDS SUMMARY | 2024-11-20 11:18 | XMS_ITS | Encounter Summary ---
Author Organization [facility] Address [address] [place] [address] Care Team Providers Care Laboratory Phlebotomist Name Role Phone Mayo Donnelly MD Primary Care Provider [phone] Encounter Details Date Type Department Care Team (Late st Contact Info) Description 07/27/[address] [facility] - Main Lab [address] [facility] [employer] [address] Mayo Donnelly MD [address] [place] [phone] Encounter for other general examination Social History [...] AM EST) WBC 6.5 4.8 - 10.8 K/[facility] LAB HEMETOLOGY METHOD 07/27/2024 11:45 AM [facility] RBC 3.80 3.80 - 4.80 M/mcL LAB HEMETOLOGY METHOD 07/27/2024 11:45 AM [facility] Hemoglobin 9.2(L) 11.5 - 16.0 g/dL LAB HEMETOLOGY METHOD 07/27/2024 11:45 AM [facility] Hematocrit 30.8(L) 35.0 - 47.0 % LAB HEMETOLOGY METHOD 07/27/2024 11:45 AM [facility] MCV 81.7 79.0 - 98.0 FL LAB HEMETOLOGY METHOD 07/27/2024 11:45 AM [facility] MCH 24.4(L) 27.0 - 32.0 pcg LAB HEMETOLOGY METHOD 07/27/2024 11:45 AM [facility] MCHC 29.9(L) 32.0 - 37.0 g/dL LAB HEMETOLOGY METHOD 07/27/2024 11:45 AM [facility] RDW 15.8(H) 11.0 - 15.0 % LAB HEMETOLOGY METHOD 07/27/2024 11:45 AM [facility] Platelets 318 130 - 400 K/mcL LAB HEMETOLOGY METHOD 07/27/2024 11:45 AM [facility] MPV 10.3 7.0 - 11.0 FL LAB HEMETOLOGY METHOD 07/27/2024 11:45 AM [facility] NRBC 0.0 <1.0 % LAB HEMETOLOGY METHOD 07/27/2024 11:45 AM [facility] NRBC Absolute 0.00 <0.10 K/mcL LAB HEMETOLOGY METHOD 07/27/2024 11:45 AM [facility] Blood Venous blood specimen / Unknown Venipuncture / Unknown 07/27/2024 6:45 AM EST 07/27/2024 10:56 AM EST us Mayo Donnelly MD LAB BLOOD ORDERABLES Final Res ult [facility] [address] [place] [address], [place] [phone] * (ABNORMAL) Comprehensive metabolic panel (07/27/2024 6:45 AM EST) Sodium 134 133 - 145 mmol/L LAB CHEMISTRY METHOD 07/27/2024 2:10 PM EST [facility] Potassium 5.2 3.5 - 5.5 mmol/L LAB CHEMISTRY METHOD 07/27/2024 2:10 PM [facility] Chloride 107 96 - 110 mmol/L LAB CHEMISTRY METHOD 07/27/2024 2:10 PM [facility] CO2 20(L) 21 - 32 mmol/L LAB CHEMISTRY METHOD 07/27/2024 2:10 PM [facility] Anion Gap 7 3 - 11 LAB CHEMISTRY METHOD 07/27/2024 2:10 PM [facility] Glucose 101(H) 70 - 100 mg/dL LAB CHEMISTRY METHOD 07/27/2024 2:10 PM [facility] BUN 43(H) 5 - 25 mg/dL LAB CHEMISTRY METHOD 07/27/2024 2:10 PM [facility] Creatinine 0.99 0.50 - 1.10 mg/dL LAB CHEMISTRY METHOD 07/27/2024 2:10 PM [facility] eGFR 59(L) >=60 mL/min/1. 73m2 LAB CHEMISTRY METHOD 07/27/2024 2:10 PM [facility] Comment:Calculation based on the??Chronic Kidney Disease Epidemiology Collaboration (CKD-EPI) equation refit??without adjustment for race. BUN/Creatinine Ratio 43.4 LAB CHEMISTRY METHOD 07/27/2024 2:10 PM [facility] Calcium 9.4 8.5 - 10.5 mg/dL LAB CHEMISTRY METHOD 07/27/2024 2:10 PM [facility] AST (SGOT) 23 10 - 42 unit/L LAB CHEMISTRY METHOD 07/27/2024 2:10 PM [facility] ALT (SGPT) 16 10 - 60 unit/L LAB CHEMISTRY METHOD 07/27/2024 2:10 PM [facility] Alkaline Phosphatase 65 42 - 121 unit/L LAB CHEMISTRY METHOD 07/27/2024 2:10 PM [facility] Total Protein 6.4 6.0 - 8.0 g/dL LAB CHEMISTRY METHOD 07/27/2024 2:10 PM [facility] Albumin 3.5 3.2 - 5.0 g/dL LAB CHEMISTRY METHOD 07/27/2024 2:10 PM [facility] Total Bilirubin 0.2 0.0 - 1.4 mg/dL LAB CHEMISTRY METHOD 07/27/2024 2:10 PM [facility] Blood Venous blood specimen / Unknown Venipuncture / Unknown 07/27/2024 6:45 AM EST 07/27/2024 10:56 AM EST us Mayo Donnelly MD LAB BLOOD ORDERABLES Final Res ult [facility] [address] [place] [address], documented in this encounter Visit Diagnoses Diagnosis Encounter for other general examination documented in this encounter Care Teams Laboratory Phlebotomist Relationship Specialty Start Date End Date Mayo Donnelly MD [address] [place] [phone] PCP - General Internal Medicine 11/06/24 documented as of this encounter
--- OUTSIDE RECORDS SUMMARY | 2024-11-20 11:18 | XMS_ITS | Encounter Summary ---
Author Organization [facility] Address [address] [place] [address] Care Team Providers Care Inside Sales Administrator Name Role Phone Mayo Donnelly MD Primary Care Provider [phone] Encounter Details Date Type Department Care Team (Late st Contact Info) Description 11/07/2024 Lab Requisition [facility] - Main Lab [address] [facility] [place] [address] Mayo Donnelly MD [address] [place] [id number] Encounter for other general examination Social History [...] CBC auto differential (11/07/2024 6:56 AM EDT) [facility] WBC 9.2 4.8 - 10.8 K/mcL LAB HEMETOLOGY METHOD 11/07/2024 10:49 AM [facility] RBC 3.60(L) 3.80 - 4.80 M/mcL LAB HEMETOLOGY METHOD 11/07/2024 10:49 AM [facility] Hemoglobin 8.0(L) 11.5 - 16.0 g/dL LAB HEMETOLOGY METHOD 11/07/2024 10:49 AM [facility] LAB Hematocrit 26.7(L) 35.0 - 47.0 % LAB HEMETOLOGY METHOD 11/07/2024 10:49 AM [facility] LAB MCV 74.2(L) 79.0 - 98.0 FL LAB HEMETOLOGY METHOD 11/07/2024 10:49 AM [facility] LAB MCH 22.2(L) 27.0 - 32.0 pcg LAB HEMETOLOGY METHOD 11/07/2024 10:49 AM [facility] LAB MCHC 30.0(L) 32.0 - 37.0 g/dL LAB HEMETOLOGY METHOD 11/07/2024 10:49 AM [facility] RDW 19.9(H) 11.0 - 15.0 % LAB HEMETOLOGY METHOD 11/07/2024 10:49 AM [facility] LAB Platelets 468(H) 130 - 400 K/mcL LAB HEMETOLOGY METHOD 11/07/2024 10:49 AM [facility] LAB MPV 9.4 7.0 - 11.0 FL LAB HEMETOLOGY METHOD 11/07/2024 10:49 AM [facility] NRBC 0.0 <1.0 % LAB HEMETOLOGY METHOD 11/07/2024 10:49 AM [facility] LAB NRBC Absolute 0.00 <0.10 K/mcL LAB HEMETOLOGY METHOD 11/07/2024 10:49 AM [facility] LAB Neutrophils Relative 73.4 % LAB HEMETOLOGY METHOD 11/07/2024 10:49 AM [facility] Lymphocytes Relative 14.6 % LAB HEMETOLOGY METHOD 11/07/2024 10:49 AM [facility] Monocytes Relative 8.4 % LAB HEMETOLOGY METHOD 11/07/2024 10:49 AM [facility] Eosinophils Relative 2.6 % LAB HEMETOLOGY METHOD 11/07/2024 10:49 AM [facility] Basophils Relative 0.2 % LAB HEMETOLOGY METHOD 11/07/2024 10:49 AM [facility] Immature Granulocytes Relative 0.8 % LAB HEMETOLOGY METHOD 11/07/2024 10:49 AM [facility] LAB Neutrophils Absolute 6.72 1.50 - 7.00 K/mcL LAB HEMETOLOGY METHOD 11/07/2024 10:49 AM [facility] Lymphocytes Absolute 1.34 1.00 - 5.00 K/mcL LAB HEMETOLOGY METHOD 11/07/2024 10:49 AM [facility] Monocytes Absolute 0.77 0.20 - 1.00 K/mcL LAB HEMETOLOGY METHOD 11/07/2024 10:49 AM [facility] Eosinophils Absolute 0.24 0.00 - 0.50 K/mcL LAB HEMETOLOGY METHOD 11/07/2024 10:49 AM [facility] Basophils Absolute 0.02 0.00 - 0.20 K/mcL LAB HEMETOLOGY METHOD 11/07/2024 10:49 AM [facility] LAB Immature Granulocytes Absolute 0.07(H) 0.00 - 0.03 K/mcL LAB HEMETOLOGY METHOD 11/07/2024 10:49 AM EDT [facility] Blood Venous blood specimen / Unknown Venipuncture / Unknown 11/07/2024 6:56 AM EDT 11/07/2024 9:48 AM EDT us Mayo Donnelly MD LAB BLOOD ORDERABLES Final Res ult [facility] LAB [address] [place] [address], * Basic metabolic panel (11/07/2024 6:56 AM EDT) Sodium 141 133 - 145 mmol/L LAB CHEMISTRY METHOD 11/07/2024 12:18 PM [facility] Potassium 4.7 3.5 - 5.5 mmol/L LAB CHEMISTRY METHOD 11/07/2024 12:18 PM [facility] Chloride 105 96 - 110 mmol/L LAB CHEMISTRY METHOD 11/07/2024 12:18 PM [facility] CO2 26 21 - 32 mmol/L LAB CHEMISTRY METHOD 11/07/2024 12:18 PM [facility] Anion Gap 10 3 - 11 LAB CHEMISTRY METHOD 11/07/2024 12:18 PM [facility] Glucose 98 70 - 100 mg/dL LAB CHEMISTRY METHOD 11/07/2024 12:18 PM [facility] BUN 23 5 - 25 mg/dL LAB CHEMISTRY METHOD 11/07/2024 12:18 PM [facility] Creatinine 0.90 0.50 - 1.10 mg/dL LAB CHEMISTRY METHOD 11/07/2024 12:18 PM [facility] eGFR 66 >=60 mL/min/1. 73m2 LAB CHEMISTRY METHOD 11/07/2024 12:18 PM [facility] Comment:Calculation based on the??Chronic Kidney Disease Epidemiology Collaboration (CKD-EPI) equation refit??without adjustment for race. BUN/Creatinine Ratio 25.6 LAB CHEMISTRY METHOD 11/07/2024 12:18 PM EDT [facility] Calcium 9.2 8.5 - 10.5 mg/dL LAB CHEMISTRY METHOD 11/07/2024 12:18 PM EDT [facility] Blood Venous blood specimen / Unknown Venipuncture / Unknown 11/07/2024 6:56 AM EDT 11/07/2024 9:48 AM EDT us Mayo Donnelly MD LAB BLOOD ORDERABLES Final Res ult [facility] [address] [place] [address], [place] [phone] documented in this encounter Visit Diagnoses Diagnosis Encounter for other general examination documented in this encounter Care Teams Inside Sales Administrator Relationship Specialty Start Date End Date Mayo Donnelly MD [address] [place] [address] PCP - General Internal Medicine 11/06/24 documented as of this encounter
--- OUTSIDE RECORDS SUMMARY | 2024-11-20 11:18 | XMS_ITS | Encounter Summary ---
Author Organization [facility] Address [address] [place] [address] Care Team Providers Care Pickling Tank Operator Name Role Phone Mayo Donnelly MD Primary Care Provider [phone] Encounter Details Date Type Department Care Team (Late st Contact Info) Description 11/03/2024 Lab Requisition [facility] - Main Lab 299 [facility] [place] [address] Mayo Donnelly MD [address] [place] [phone] Encounter for other general examination Social History [...] Diagnosis Comments CBC WITH AUTO DIFFERENTIAL Routine 11/03/2024 7:06 AM EDT Encounter for other general examination CBC AND DIFFERENTIAL Routine 11/03/2024 7:06 AM EDT Encounter for other general examination MAGNESIUM Routine 11/03/2024 7:06 AM EDT Encounter for other general examination COMPREHENSIVE METABOLIC PANEL Routine 11/03/2024 7:06 AM EDT Encounter for other general examination documented in this encounter Results * (ABNORMAL) CBC auto differential (11/03/2024 7:06 AM EDT) WBC 11.8(H) 4.8 - 10.8 K/mcL LAB HEMETOLOGY METHOD 11/03/2024 11:19 AM [facility] LAB RBC 3.60(L) 3.80 - 4.80 M/mcL LAB HEMETOLOGY METHOD 11/03/2024 11:19 AM [facility] Hemoglobin 8.0(L) 11.5 - 16.0 g/dL LAB HEMETOLOGY METHOD 11/03/2024 11:19 AM [facility] LAB Hematocrit 26.2(L) 35.0 - 47.0 % LAB HEMETOLOGY METHOD 11/03/2024 11:19 AM [facility] LAB MCV 72.6(L) 79.0 - 98.0 FL LAB HEMETOLOGY METHOD 11/03/2024 11:19 AM [facility] LAB MCH 22.2(L) 27.0 - 32.0 pcg LAB HEMETOLOGY METHOD 11/03/2024 11:19 AM [facility] LAB MCHC 30.5(L) 32.0 - 37.0 g/dL LAB HEMETOLOGY METHOD 11/03/2024 11:19 AM [facility] LAB RDW 18.7(H) 11.0 - 15.0 % LAB HEMETOLOGY METHOD 11/03/2024 11:19 AM [facility] LAB Platelets 463(H) 130 - 400 K/mcL LAB HEMETOLOGY METHOD 11/03/2024 11:19 AM [facility] MPV 9.5 7.0 - 11.0 FL LAB HEMETOLOGY METHOD 11/03/2024 11:19 AM [facility] NRBC 0.0 <1.0 % LAB HEMETOLOGY METHOD 11/03/2024 11:19 AM [facility] NRBC Absolute 0.00 <0.10 K/mcL LAB HEMETOLOGY METHOD 11/03/2024 11:19 AM [facility] Neutrophils Relative 74.1 % LAB HEMETOLOGY METHOD 11/03/2024 11:19 AM [facility] Lymphocytes Relative 10.4 % LAB HEMETOLOGY METHOD 11/03/2024 11:19 AM [facility] Monocytes Relative 7.6 % LAB HEMETOLOGY METHOD 11/03/2024 11:19 AM [facility] Eosinophils Relative 4.7 % LAB HEMETOLOGY METHOD 11/03/2024 11:19 AM [facility] Basophils Relative 0.3 % LAB HEMETOLOGY METHOD 11/03/2024 11:19 AM [facility] LAB Immature Granulocytes Relative 2.9 % LAB HEMETOLOGY METHOD 11/03/2024 11:19 AM [facility] Neutrophils Absolute 8.76(H) 1.50 - 7.00 K/mcL LAB HEMETOLOGY METHOD 11/03/2024 11:19 AM [facility] Lymphocytes Absolute 1.23 1.00 - 5.00 K/mcL LAB HEMETOLOGY METHOD 11/03/2024 11:19 AM [facility] Monocytes Absolute 0.90 0.20 - 1.00 K/mcL LAB HEMETOLOGY METHOD 11/03/2024 11:19 AM [facility] Eosinophils Absolute 0.55(H) 0.00 - 0.50 K/mcL LAB HEMETOLOGY METHOD 11/03/2024 11:19 AM [facility] Basophils Absolute 0.03 0.00 - 0.20 K/mcL LAB HEMETOLOGY METHOD 11/03/2024 11:[address] [facility] Immature Granulocytes Absolute 0.34(H) 0.00 - 0.03 K/mcL LAB HEMETOLOGY METHOD 11/03/2024 11:[address] [facility] Blood Venous blood specimen / Unknown Venipuncture / Unknown 11/03/2024 7:06 AM EDT 11/03/2024 9:36 AM EDT Mayo Donnelly MD LAB BLOOD ORDERABLES Final Res ult Performing Organization Address [facility]/ZIP Co de Phone Number [facility] [address] [place] [address], [place] [phone] * (ABNORMAL) Magnesium (11/03/2024 7:06 AM EDT) Magnesium 1.5(L) 1.9 - 2.6 mg/dL LAB CHEMISTRY METHOD 11/03/2024 11:[address] [facility] Blood Venous blood specimen / Unknown Venipuncture / Unknown 11/03/2024 7:06 AM EDT 11/03/2024 9:36 AM EDT Mayo Donnelly MD LAB BLOOD ORDERABLES Final Res ult Performing Organization Address [facility]/ZIP Co de Phone Number [facility] [address] [place] [address], [place] [phone] * (ABNORMAL) Comprehensive metabolic panel (11/03/2024 7:06 AM EDT) Sodium 136 133 - 145 mmol/L LAB CHEMISTRY METHOD 11/03/2024 11:[address] [facility] Potassium 4.3 3.5 - 5.5 mmol/L LAB CHEMISTRY METHOD 11/03/2024 11:[address] [facility] Chloride 103 96 - 110 mmol/L LAB CHEMISTRY METHOD 11/03/2024 11:45 AM [facility] CO2 26 21 - 32 mmol/L LAB CHEMISTRY METHOD 11/03/2024 11:45 AM [facility] Anion Gap 7 3 - 11 LAB CHEMISTRY METHOD 11/03/2024 11:45 AM [facility] Glucose 112(H) 70 - 100 mg/dL LAB CHEMISTRY METHOD 11/03/2024 11:45 AM [facility] BUN 24 5 - 25 mg/dL LAB CHEMISTRY METHOD 11/03/2024 11:45 AM [facility] Creatinine 0.81 0.50 - 1.10 mg/dL LAB CHEMISTRY METHOD 11/03/2024 11:45 AM [facility] eGFR 75 >=60 mL/min/1. 73m2 LAB CHEMISTRY METHOD 11/03/2024 11:45 AM [facility] Comment:Calculation based on the??Chronic Kidney Disease Epidemiology Collaboration (CKD-EPI) equation refit??without adjustment for race. BUN/Creatinine Ratio 29.6 LAB CHEMISTRY METHOD 11/03/2024 11:45 AM [facility] Calcium 8.3(L) 8.5 - 10.5 mg/dL LAB CHEMISTRY METHOD 11/03/2024 11:45 AM [facility] AST (SGOT) 22 10 - 42 unit/L LAB CHEMISTRY METHOD 11/03/2024 11:45 AM [facility] ALT (SGPT) 8(L) 10 - 60 unit/L LAB CHEMISTRY METHOD 11/03/2024 11:45 AM [facility] Alkaline Phosphatase 102 42 - 121 unit/L LAB CHEMISTRY METHOD 11/03/2024 11:45 AM [facility] Total Protein 5.7(L) 6.0 - 8.0 g/dL LAB CHEMISTRY METHOD 11/03/2024 11:45 AM [facility] Albumin 2.4(L) 3.2 - 5.0 g/dL LAB CHEMISTRY METHOD 11/03/2024 11:[address] [facility] Total Bilirubin 0.6 0.0 - 1.4 mg/dL LAB CHEMISTRY METHOD 11/03/2024 11:[address] [facility] Blood Venous blood specimen / Unknown Venipuncture / Unknown 11/03/2024 7:06 AM EDT 11/03/2024 9:36 AM EDT us Mayo Donnelly MD LAB BLOOD ORDERABLES Final Res ult [facility] [address] [place] [address], documented in this encounter Visit Diagnoses Diagnosis Encounter for other general examination documented in this encounter Care Teams Pickling Tank Operator Relationship Specialty Start Date End Date Mayo Donnelly MD [address] [place] [id number] PCP - General Internal Medicine 11/06/24 documented as of this encounter
--- OUTSIDE RECORDS SUMMARY | 2024-11-20 11:18 | XMS_ITS | Clinical Summary ---
Author Organization [address] Address [address] [place] [address] Phone Care Team Providers Care Caisson Worker Name Role Phone Mayo Donnelly MD Primary Care Provider [phone] Encounters Date Type Department Care Team Description 11/13/2024 Lab Requisition [facility] Lab [address] [place] [address] Mayo Donnlely MD Encounter for other general examination 11/07/2024 Lab Requisition [facility] Lab [address] [place] [address] Mayo Donnelly MD Encounter for other general examination 11/06/2024 Lab Requisition [facility] Lab [address] [place] [address] Mayo Donnelly MD Encounter for other general examination 11/03/2024 Lab Requisition [facility] Lab [address] [place] [address] Mayo Donnelly MD Encounter for other general [...] dr. logan, no intervention, Dr. 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); COMMENT: Cataracts Parkinson disease ([facility] V 24, [facility] V28) 10/16/2015 DX:Parkinson disease (HCC) Closed fracture [...] (Age mid 70's) thro at cancer, 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) Mother (Age mid 70's) Sister 1 Sister [...] K/mcL LAB HEMETOLOGY METHOD 11/13/2024 1:11 PM [facility] RBC 4.00 3.80 - 4.80 M/mcL LAB HEMETOLOGY METHOD 11/13/2024 1:11 PM [facility] Hemoglobin 8.9(L) 11.5 - 16.0 g/dL LAB HEMETOLOGY METHOD 11/13/2024 1:11 PM [facility] Hematocrit 29.8(L) 35.0 - 47.0 % LAB HEMETOLOGY METHOD 11/13/2024 1:11 PM [facility] MCV 74.5(L) 79.0 - 98.0 FL LAB HEMETOLOGY METHOD 11/13/2024 1:11 PM [facility] MCH 22.3(L) 27.0 - 32.0 pcg LAB HEMETOLOGY METHOD 11/13/2024 1:11 PM [facility] MCHC 29.9(L) 32.0 - 37.0 g/dL LAB HEMETOLOGY METHOD 11/13/2024 1:11 PM [facility] RDW 19.4(H) 11.0 - 15.0 % LAB HEMETOLOGY METHOD 11/13/2024 1:11 PM [facility] Platelets 474(H) 130 - 400 K/[facility] LAB HEMETOLOGY METHOD 11/13/2024 1:11 PM [facility] MPV 9.7 7.0 - 11.0 FL LAB HEMETOLOGY METHOD 11/13/2024 1:11 PM [facility] NRBC 0.0 <1.0 % LAB HEMETOLOGY METHOD 11/13/2024 1:11 PM [facility] NRBC Absolute 0.00 <0.10 K/[facility] LAB HEMETOLOGY METHOD 11/13/2024 1:11 PM [facility] Neutrophils Relative 67.0 % LAB HEMETOLOGY METHOD 11/13/2024 1:11 PM [facility] Lymphocytes Relative 21.2 % LAB HEMETOLOGY METHOD 11/13/2024 1:11 PM [facility] Monocytes Relative 8.4 % LAB HEMETOLOGY METHOD 11/13/2024 1:11 PM [facility] Eosinophils Relative 2.3 % LAB HEMETOLOGY METHOD 11/13/2024 1:11 PM [facility] Basophils Relative 0.7 % LAB HEMETOLOGY METHOD 11/13/2024 1:11 PM [facility] Immature Granulocytes Relative 0.4 % LAB HEMETOLOGY METHOD 11/13/2024 1:11 PM [facility] Neutrophils Absolute 4.68 1.50 - 7.00 K/mcL LAB HEMETOLOGY METHOD 11/13/2024 1:11 PM [facility] Lymphocytes Absolute 1.48 1.00 - 5.00 K/mcL LAB HEMETOLOGY METHOD 11/13/2024 1:11 PM [facility] Monocytes Absolute 0.59 0.20 - 1.00 K/mcL LAB HEMETOLOGY METHOD 11/13/2024 1:11 PM [facility] Eosinophils Absolute 0.16 0.00 - 0.50 K/mcL LAB HEMETOLOGY METHOD 11/13/2024 1:11 PM [facility] Basophils Absolute 0.05 0.00 - 0.20 K/mcL LAB HEMETOLOGY METHOD 11/13/2024 1:11 PM [facility] Immature Granulocytes Absolute 0.03 0.00 - 0.03 K/mcL LAB HEMETOLOGY METHOD 11/13/2024 1:11 PM [facility] Blood Venous blood specimen / Unknown Venipuncture / Unknown 11/13/2024 6:23 AM EDT 11/13/2024 10:11 AM EDT Mayo Donnelly MD LAB BLOOD ORDERABLES Final Res ult [facility] [address] [place] [address], [place] [phone] * (ABNORMAL) Basic metabolic panel (11/13/2024 6:23 AM EDT) Only the most recent of2 resultswithin the time period is included. Sodium 135 133 - 145 mmol/L LAB CHEMISTRY METHOD 11/13/2024 1:09 PM [facility] Potassium 5.1 3.5 - 5.5 mmol/L LAB CHEMISTRY METHOD 11/13/2024 1:09 PM [facility] Chloride 103 96 - 110 mmol/L LAB CHEMISTRY METHOD 11/13/2024 1:09 PM [facility] CO2 23 21 - 32 mmol/L LAB CHEMISTRY METHOD 11/13/2024 1:09 PM [facility] Anion Gap 9 3 - 11 LAB CHEMISTRY METHOD 11/13/2024 1:09 PM [facility] Glucose 105(H) 70 - 100 mg/dL LAB CHEMISTRY METHOD 11/13/2024 1:09 PM [facility] BUN 34(H) 5 - 25 mg/dL LAB CHEMISTRY METHOD 11/13/2024 1:09 PM [facility] Creatinine 1.04 0.50 - 1.10 mg/dL LAB CHEMISTRY METHOD 11/13/2024 1:09 PM [facility] eGFR 55(L) >=60 mL/min/1. 73m2 LAB CHEMISTRY METHOD 11/13/2024 1:09 PM [facility] Comment:Calculation based on the??Chronic Kidney Disease Epidemiology Collaboration (CKD-EPI) equation refit??without adjustment for race. BUN/Creatinine Ratio 32.7 LAB CHEMISTRY METHOD 11/13/2024 1:09 PM EDT [facility] Calcium 9.6 8.5 - 10.5 mg/dL LAB CHEMISTRY METHOD 11/13/2024 1:09 PM EDT [facility] Blood Venous blood specimen / Unknown Venipuncture / Unknown 11/13/2024 6:23 AM EDT 11/13/2024 10:11 AM EDT us Mayo Donnelly MD LAB BLOOD ORDERABLES Final Res ult Performing Organization Address [facility] Co de Phone Number [facility] [address] [place] [address], [place] [phone] * (ABNORMAL) Magnesium (11/06/2024 6:24 AM EDT) Only the most recent of2 resultswithin the time period is included. Magnesium 1.6(L) 1.9 - 2.6 mg/dL LAB CHEMISTRY METHOD 11/06/2024 12:59 PM EDT [facility] Blood Venous blood specimen / Unknown Venipuncture / Unknown 11/06/2024 6:24 AM EDT 11/06/2024 10:07 AM EDT Mayo Donnelly MD LAB BLOOD ORDERABLES Final Res ult Performing Organization Address City/[facility]/ZIP Co de Phone Number [facility] [address] [place] [address], [place] [phone] * (ABNORMAL) Comprehensive metabolic panel (11/03/2024 7:06 AM EDT) Sodium 136 133 - 145 mmol/L LAB CHEMISTRY METHOD 11/03/2024 11:45 AM EDT [facility] Potassium 4.3 3.5 - 5.5 mmol/L LAB CHEMISTRY METHOD 11/03/2024 11:45 AM [facility] Chloride 103 96 - 110 mmol/L LAB CHEMISTRY METHOD 11/03/2024 11:45 AM [facility] CO2 26 21 - 32 mmol/L LAB CHEMISTRY METHOD 11/03/2024 11:45 AM [facility] Anion Gap 7 3 - 11 LAB CHEMISTRY METHOD 11/03/2024 11:45 AM [facility] Glucose 112(H) 70 - 100 mg/dL LAB CHEMISTRY METHOD 11/03/2024 11:45 AM [facility] BUN 24 5 - 25 mg/dL LAB CHEMISTRY METHOD 11/03/2024 11:45 AM [facility] Creatinine 0.81 0.50 - 1.10 mg/dL LAB CHEMISTRY METHOD 11/03/2024 11:45 AM [facility] eGFR 75 >=60 mL/min/1. 73m2 LAB CHEMISTRY METHOD 11/03/2024 11:45 AM [facility] Comment:Calculation based on the??Chronic Kidney Disease Epidemiology Collaboration (CKD-EPI) equation refit??without adjustment for race. BUN/Creatinine Ratio 29.6 LAB CHEMISTRY METHOD 11/03/2024 11:45 AM [facility] Calcium 8.3(L) 8.5 - 10.5 mg/dL LAB CHEMISTRY METHOD 11/03/2024 11:45 AM [facility] AST (SGOT) 22 10 - 42 unit/L LAB CHEMISTRY METHOD 11/03/2024 11:45 AM [facility] ALT (SGPT) 8(L) 10 - 60 unit/L LAB CHEMISTRY METHOD 11/03/2024 11:45 AM [facility] Alkaline Phosphatase 102 42 - 121 unit/L LAB CHEMISTRY METHOD 11/03/2024 11:45 AM [facility] Total Protein 5.7(L) 6.0 - 8.0 g/dL LAB CHEMISTRY METHOD 11/03/2024 11:45 AM EDT [facility] Albumin 2.4(L) 3.2 - 5.0 g/dL LAB CHEMISTRY METHOD 11/03/2024 11:45 AM EDT [facility] Total Bilirubin 0.6 0.0 - 1.4 mg/dL LAB CHEMISTRY METHOD 11/03/2024 11:45 AM EDT [facility] Blood Venous blood specimen / Unknown Venipuncture / Unknown 11/03/2024 7:06 AM EDT 11/03/2024 9:36 AM EDT us Mayo Donnelly MD LAB BLOOD ORDERABLES Final Res ult [facility] [address] [place] [address], * SCREENING MAMMOGRAPHY BI 2-VIEW BREAST INC [...] Relevant to Health Maintenance Insurance [address] [place] [address] MEDICARE [place] Advance Directives Documents on File Type Date Recorded Patient Aviation Safety Equipment Technician Expl 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
--- OUTSIDE RECORDS SUMMARY | 2024-11-20 11:18 | XMS_ITS | Encounter Summary ---
Author Organization [facility] Address [address] [place] [address] Care Team Providers Care Center Rep Name Role Phone Meghan Hicks MD Primary Care Provider Beatrice Garvey MD Unavailable [facility], Pcp Primary Care Provider Unavailbrown e Meghan Hicks MD Primary Care Provider Andree Stallworth MD Primary Care Provider Unavailnathaly barcenas Encounter Details Date Type Department Care Team Description 08/05/2015 Release of Information Medical Records [address] [place] [id number] Abstract, Provider Social History Tobacco Use Types [...] on filedocumented in this encounter Care Teams Center Rep Relationship Specialty Start Date End Date Meghan Hicks MD PCP - General Internal Medicine 04/08/12 01/15/22 [facility], Pcp PCP - General Internal Medicine 01/16/22 03/05/22 Meghan Hicks MD PCP - General Internal Medicine 03/06/22 03/18/22 Andree Gonzalez MD PCP - General Internal Medicine 03/19/22 Beatrice Holloway MD Specialist Cardiology 07/31/21 documented as of this encounter
--- OUTSIDE RECORDS SUMMARY | 2024-11-20 11:18 | XMS_ITS | Encounter Summary ---
Author Organization [facility] Address [address] [place] [address] Care Team Providers Care Machine Gunner Name Role Phone Mayo Donnelly MD Primary Care Provider [phone] Encounter Details Date Type Department Care Team (Late st Contact Info) Description 08/01/2024 Lab Requisition [facility] - Main Lab [address] [place] [address] Mayo Donnelly MD [address] [place] [address] Encounter for other general examination Social History [...] AM EST) WBC 11.1(H) 4.8 - 10.8 K/[facility] LAB HEMETOLOGY METHOD 08/01/2024 10:45 AM [facility] LAB RBC 3.80 3.80 - 4.80 M/[facility] LAB HEMETOLOGY METHOD 08/01/2024 10:45 AM [facility] LAB Hemoglobin 9.3(L) 11.5 - 16.0 g/dL LAB HEMETOLOGY METHOD 08/01/2024 10:45 AM [facility] LAB Hematocrit 30.6(L) 35.0 - 47.0 % LAB HEMETOLOGY METHOD 08/01/2024 10:45 AM [facility] LAB MCV 81.4 79.0 - 98.0 FL LAB HEMETOLOGY METHOD 08/01/2024 10:45 AM [facility] LAB MCH 24.7(L) 27.0 - 32.0 pcg LAB HEMETOLOGY METHOD 08/01/2024 10:45 AM [facility] LAB MCHC 30.4(L) 32.0 - 37.0 g/dL LAB HEMETOLOGY METHOD 08/01/2024 10:45 AM [facility] LAB RDW 16.0(H) 11.0 - 15.0 % LAB HEMETOLOGY METHOD 08/01/2024 10:45 AM [facility] LAB Platelets 327 130 - 400 K/mcL LAB HEMETOLOGY METHOD 08/01/2024 10:45 AM [facility] LAB MPV 10.4 7.0 - 11.0 FL LAB HEMETOLOGY METHOD 08/01/2024 10:45 AM [facility] LAB NRBC 0.0 <1.0 % LAB HEMETOLOGY METHOD 08/01/2024 10:45 AM [facility] LAB NRBC Absolute 0.00 <0.10 K/mcL LAB HEMETOLOGY METHOD 08/01/2024 10:45 AM [facility] Blood Venous blood specimen / Unknown Venipuncture / Unknown 08/01/2024 4:56 AM EST 08/01/2024 9:34 AM EST us Mayo Donnelly MD LAB BLOOD ORDERABLES Final Res ult [facility] [address] [place] [address], [place] [phone] * (ABNORMAL) Comprehensive metabolic panel (08/01/2024 4:56 AM EST) Sodium 136 133 - 145 mmol/L LAB CHEMISTRY METHOD 08/01/2024 11:16 AM EST [facility] Potassium 5.5 3.5 - 5.5 mmol/L LAB CHEMISTRY METHOD 08/01/2024 11:16 AM [facility] Chloride 105 96 - 110 mmol/L LAB CHEMISTRY METHOD 08/01/2024 11:16 AM [facility] CO2 26 21 - 32 mmol/L LAB CHEMISTRY METHOD 08/01/2024 11:16 AM [facility] Anion Gap 5 3 - 11 LAB CHEMISTRY METHOD 08/01/2024 11:16 AM [facility] Glucose 83 70 - 100 mg/dL LAB CHEMISTRY METHOD 08/01/2024 11:16 AM [facility] BUN 44(H) 5 - 25 mg/dL LAB CHEMISTRY METHOD 08/01/2024 11:16 AM [facility] Creatinine 1.15(H) 0.50 - 1.10 mg/dL LAB CHEMISTRY METHOD 08/01/2024 11:16 AM [facility] LAB eGFR 49(L) >=60 mL/min/1. 73m2 LAB CHEMISTRY METHOD 08/01/2024 11:16 AM [facility] LAB Comment:Calculation based on the??Chronic Kidney Disease Epidemiology Collaboration (CKD-EPI) equation refit??without adjustment for race. BUN/Creatinine Ratio 38.3 LAB CHEMISTRY METHOD 08/01/2024 11:16 AM [facility] Calcium 9.3 8.5 - 10.5 mg/dL LAB CHEMISTRY METHOD 08/01/2024 11:16 AM [facility] AST (SGOT) 23 10 - 42 unit/L LAB CHEMISTRY METHOD 08/01/2024 11:16 AM [facility] ALT (SGPT) 17 10 - 60 unit/L LAB CHEMISTRY METHOD 08/01/2024 11:16 AM [facility] Alkaline Phosphatase 67 42 - 121 unit/L LAB CHEMISTRY METHOD 08/01/2024 11:16 AM [facility] Total Protein 6.6 6.0 - 8.0 g/dL LAB CHEMISTRY METHOD 08/01/2024 11:16 AM [facility] Albumin 3.4 3.2 - 5.0 g/dL LAB CHEMISTRY METHOD 08/01/2024 11:16 AM [facility] Total Bilirubin 0.3 0.0 - 1.4 mg/dL LAB CHEMISTRY METHOD 08/01/2024 11:16 AM [facility] Blood Venous blood specimen / Unknown Venipuncture / Unknown 08/01/2024 4:56 AM EST 08/01/2024 9:34 AM EST us Mayo Donnelly MD LAB BLOOD ORDERABLES Final Res ult [facility] [address] [place] [address], documented in this encounter Visit Diagnoses Diagnosis Encounter for other general examination documented in this encounter Care Teams Machine Gunner Relationship Specialty Start Date End Date Mayo Donnelly MD [address] [place] [address] PCP - General Internal Medicine 11/06/24 documented as of this encounter
--- OUTSIDE RECORDS SUMMARY | 2024-11-20 11:19 | XMS_ITS | Encounter Summary ---
Author Organization [facility] Address [address] [place] [address] Care Team Providers Care Non Destructive Evaluation Manager Name Role Phone Meghan Hicks MD Primary Care Provider UnaBeatrice Puente MD Unavailable [facility] Primary Care Provider UnavailMeghan Jones MD Primary Care Provider UnaAndree Zapata MD Primary Care Provider Unavaila ble Reason for Visit * Reason Onset Date Comments Medication 07/01/2020 Encounter Details Date Type Department Care Team Description 07/01/2020 Pt. Non Urgent Medic al Question Adult Medicine [address] [address] Meghan Hicks MD Social History Tobacco Use [...] encounter Miscellaneous Notes * Telephone Encounter - Leanna Lisa M.A. - 07/01/2020 1:18 PM ESTFrom: Francine Pope To: Meghan Hicks MD Sent: 07/01/2020 6:58 AM EST Subject: Metformen Just making sure [facility] care requested my fefill for metformen hydrochloride er tab 500 mg 3 am with breakfast they sent me the wrong one and trying to clear it up documented in this encounter Plan of Treatment Not on file documented as of this encounter Visit Diagnoses Not on filedocumented in this encounter Care Teams Non Destructive Evaluation Manager Relationship Specialty Start Date End Date Meghan Hicks MD PCP - General Internal Medicine 04/08/12 01/15/22 [facility] PCP - General Internal Medicine 01/16/22 03/05/22 Meghan Hicks MD PCP - General Internal Medicine 03/06/22 03/18/22 Andree Gonzalez MD PCP - General Internal Medicine 03/19/22 Beatrice Holloway MD Specialist Cardiology 07/31/21 documented as of this encounter
--- OUTSIDE RECORDS SUMMARY | 2024-11-20 11:19 | XMS_ITS | Encounter Summary ---
Author Organization [employer] Address [address] [facility] [facility] [address] [place] [address] Care Team Providers Care Grid Casting Machine Operator Helper Name Role Phone Unavailable Primary Care Provider [...] Description 02/21/2025 10:50 AM EDT Office Visit [facility] DENTAL [address] [place] [address] Krystal Ramesh documented as of this encounter Visit Diagnoses Not on filedocumented in this encounter Care Teams Grid Casting Machine Operator Helper Relationship Specialty Start Date End Date Dr. Meghan Hicks Primary Care Provider 08/17/[address] Andree Lindquist [facility] Primary Care [place], [place] Primary Care Provider 08/17/22 documented as of this encounter
--- OUTSIDE RECORDS SUMMARY | 2024-11-20 11:19 | XMS_ITS | Encounter Summary ---
Author Organization [facility] Address [address] [place] [address] Care Team Providers Care Plater Printed Circuit Board Panels Name Role Phone Meghan Hicks MD Primary Care Provider Beatrice Garvey MD Unavailable [facility], Pcp Primary Care Provider Unavailabl e Meghan Hicks MD Primary Care Provider Andree Stallworth MD Primary Care Provider Unavaila narinder Encounter Details Date Type Department Care Team Description 09/11/2016 Topology Professor Report Medical Records [address] [place] [address] Meseret Hernandes PA-C Social History Tobacco Use [...] on filedocumented in this encounter Care Teams Plater Printed Circuit Board Panels Relationship Specialty Start Date End Date Meghan Hicks MD PCP - General Internal Medicine 04/08/12 01/15/22 [facility], Pcp PCP - General Internal Medicine 01/16/22 03/05/22 Meghan Hicks MD PCP - General Internal Medicine 03/06/22 03/18/22 Andree Gonzalez MD PCP - General Internal Medicine 03/19/22 Beatrice Holloway MD Specialist Cardiology 07/31/21 documented as of this encounter
--- OUTSIDE RECORDS SUMMARY | 2024-11-20 11:19 | XMS_ITS | Encounter Summary ---
Author Organization [facility] Address [address] [place] [address] Care Team Providers Care Team Facilitator Name Role Phone Meghan Hicks MD Primary Care Provider Beatrice Garvey MD Unavailable [facility], Pcp Primary Care Provider UnavailMeghan Jones MD Primary Care Provider Andree Stallworth MD Primary Care Provider Janene barcenas Encounter Details Date Type Department Care Team Description 09/18/2016 Pt. Non Urgent Medic al Question Medicine/Pediatrics - [address] [phone] Meghan Hicks MD Social History Tobacco Use [...] on filedocumented in this encounter Care Teams Team Facilitator Relationship Specialty Start Date End Date Meghan [...]
--- OUTSIDE RECORDS SUMMARY | 2024-11-20 11:19 | XMS_ITS | Encounter Summary ---
Author Organization [facility] Address [address] [place] [address] Care Team Providers Care Drop Wire Stringer Name Role Phone Meghan Hicks MD Primary Care Provider Beatrice Garvey MD Unavailable [facility], Pcp Primary Care Provider Meghan Chacko MD Primary Care Provider Andree Stallworth MD Primary Care Provider Unavailnathaly barcenas Encounter Details Date Type Department Care Team Description 09/08/2018 Pt. Non Urgent Medic al Question Medicine/Pediatrics - [address] [phone] Meghan Hicks MD Social History Tobacco Use [...] Progress Notes * Arlin Mccarthy L.P.N. - 09/08/2018 4:32 PM ESTFrom: Francine Pope To: Meghan Hicks MD Sent: 09/08/2018 4:29 PM EST Subject: Dr Mina jones Waiting to hear from dr hicks about his request for a MRI of head because of Parkinson's also my Leigh he is requesting for my blood pressure med. also dr Doll in pulmonary ordered a overnight breathing test have not received equipment for the test documented in this encounter Plan of Treatment Not on file documented as of this encounter Visit Diagnoses Not on filedocumented in this encounter Care Teams Drop Wire Stringer Relationship Specialty Start Date End Date Meghan Hicks MD PCP - General Internal Medicine 04/08/12 01/15/22 [facility] PCP - General Internal Medicine 01/16/22 03/05/22 Meghan Hicks MD PCP - General Internal Medicine 03/06/22 03/18/22 Andree Gonzalez MD PCP - General Internal Medicine 03/19/22 Beatrice Holloway MD Specialist Cardiology 07/31/21 documented as of this encounter
--- OUTSIDE RECORDS SUMMARY | 2024-11-20 11:19 | XMS_ITS | Encounter Summary ---
Author Organization [facility] Address [address] [place] [address] Care Team Providers Care Patient Service Rep Name Role Phone Meghan Hicks MD Primary Care Provider Beatrice Garvey MD Unavailable [facility], [facility] Primary Care Provider UnavailMeghan Jones MD Primary Care Provider UnaAndree Zapata MD Primary Care Provider Unavaila ble Encounter Details Date Type Department Care Team Description 04/07/2013 Orders Only Radiology - [address] [address] Kenney Peraza MD Type II or unspecified type diabetes mellitus without mention of complication, not stated as uncontrolled (Primary Dx) Social History Tobacco Use Types [...] documented as of this encounter Results * CREATININE, BLOOD ASSAY (04/09/2013 9:36 AM EDT) CREAT 0.9 0.7 - 1.5 mg/dL 04/09/2013 11:23 AM EDT [facility] GFR > 60 >60 04/09/2013 11:23 AM EDT [facility] Comment: If patient is -Czech, multiply result by 1.21 Chronic Kidney Disease: < 60 ml/min/1.73 square meters Kidney Failure: < 15 ml/min/1.73 square meters 04/09/2013 9:36 AM EDT 04/09/2013 9:36 AM EDT Kenney Peraza MD LAB Performing Organization Address City/State/[facility] Co me Phone Number [facility] [address] [place] [address] documented in this encounter Visit Diagnoses Diagnosis Type II or unspecified type diabetes mellitus without mention of complication, not stated as uncontrolled- Primary documented in this encounter Care Teams Patient Service Rep Relationship Specialty Start Date End Date Meghan Hicks MD PCP - General Internal Medicine 04/08/12 01/15/22 [facility] PCP - General Internal Medicine 01/16/22 03/05/22 Meghan Hicks MD PCP - General Internal Medicine 03/06/22 03/18/22 Andree Gonzalez MD PCP - General Internal Medicine 03/19/22 Beatrice Holloway MD Specialist Cardiology 07/31/21 documented as of this encounter
--- OUTSIDE RECORDS SUMMARY | 2024-11-20 11:19 | XMS_ITS | Encounter Summary ---
Author Organization [facility] Address [address] [place] [address] Care Team Providers Care Operating Room Specialist Name Role Phone Meghan Hicks MD Primary Care Provider Beatrice Garvey MD Unavailable [facility], Pcp Primary Care Provider UnavailMeghan Jones MD Primary Care Provider Andree Stallworth MD Primary Care Provider Janene barcenas Encounter Details Date Type Department Care Team Description 01/29/2016 Pt. Non Urgent Medic al Question Medicine/Pediatrics - [address] [phone] Meghan Hicks MD Social History Tobacco Use [...] on filedocumented in this encounter Care Teams Operating Room Specialist Relationship Specialty Start Date End Date [...]
--- OUTSIDE RECORDS SUMMARY | 2024-11-20 11:19 | XMS_ITS | Encounter Summary ---
Author Organization [facility] Address [address] [place] [address] Care Team Providers Care Forensic Technician Name Role Phone Meghan Hicks MD Primary Care Provider Beatrice Garvey MD Unavailable [facility], Pcp Primary Care Provider Unavailabl e Meghan Hicks MD Primary Care Provider Andree Stallworth MD Primary Care Provider Unavaila narinder Encounter Details Date Type Department Care Team Description 03/06/2013 Glue Machine Operator Report Medical Records [address] [place] [address] Kenney Peraza MD Social History Tobacco Use [...] on filedocumented in this encounter Care Teams Forensic Technician Relationship Specialty Start Date End Date Meghan Hicks MD PCP - General Internal Medicine 04/08/12 01/15/22 [facility], Pcp PCP - General Internal Medicine 01/16/22 03/05/22 Meghan Hicks MD PCP - General Internal Medicine 03/06/22 03/18/22 Andree Gonzalez MD PCP - General Internal Medicine 03/19/22 Beatrice Holloway MD Specialist Cardiology 07/31/21 documented as of this encounter
--- OUTSIDE RECORDS SUMMARY | 2024-11-20 11:19 | XMS_ITS | Encounter Summary ---
Author Organization [facility] Address [address] [place] [address] Care Team Providers Care Global Manager Name Role Phone Andree Lindquist Primary Care Provider [phone] Encounter Details Date Type Department Care Team (Late st Contact Info) Description 07/22/2023 Orders Only [facility] Interventional Radiology [address] [place], [place] [phone] Guerline Vaughn MD [address] [place] [address] Social History Tobacco Use Types Packs/Day Years [...] EDT Follow-Up [facility] [address] [place] [address] Marble Cleaner: Christen Dempsey MD [address] [place] [phone] 06/20/2025 10:45 AM EST Follow-Up [facility] [address] [place] [address] Marble Cleaner: Christen Dempsey MD [address] [place] [address] documented as of this encounter Visit Diagnoses Not on filedocumented in this encounter Additional Health Concerns Infection Onset Date Last Indicated Resolved Time R/O Respiratory Virus Infection 10/28/2024 10/28/2024 6:11 AM EDT R/O Influenza 10/28/2024 10/28/2024 10/28/2024 6:1 1 AM EDT COVID-19 - Suspected infection 10/28/2024 10/28/2024 10/28/2024 6:11 AM EDT documented as of this encounter Care Teams Global Manager Relationship Specialty Start Date End Date Andree Lindquist PCP - General Family Medicine 03/26/23 documented as of this encounter
--- OUTSIDE RECORDS SUMMARY | 2024-11-20 11:19 | XMS_ITS | Encounter Summary ---
Author Organization [employer] Address [address] [facility] [address] [place] [address] Care Team Providers Care Research Electrician Name Role Phone Unavailable Primary Care Provider [...] Description 02/21/2025 10:50 AM EDT Office Visit [facility] DENTAL [address] [place] [address] Krystal Ramesh documented as of this encounter Visit Diagnoses Not on filedocumented in this encounter Care Teams Research Electrician Relationship Specialty Start Date End Date Dr. Meghan Hicks Primary Care Provider 08/17/[address] Andree Lindquist [facility] Primary Care [place], [place] Primary Care Provider 08/17/22 documented as of this encounter
--- OUTSIDE RECORDS SUMMARY | 2024-11-20 11:19 | XMS_ITS | Encounter Summary ---
Author Organization [facility] Address [address] [place] [address] Care Team Providers Care Lubrication Servicer Name Role Phone Meghan Hicks MD Primary Care Provider Beatrice Garvey MD Unavailable [facility], Pcp Primary Care Provider Unavailabl e Meghan Hicks MD Primary Care Provider UnaAndree Zapata MD Primary Care Provider Unavaila ble Reason for Visit * Reason Onset Date Comments Pre-visit Diabetes Lab Adult Medicine 05/05/201905/19 Encounter Details Date Type Department Care Team Description 05/05/2019 Telephone Medicine/Pediatrics - [address] [phone] Meghan Hicks MD Pre-visit Diabetes Lab Adult Medicine (05/19) Social History Tobacco Use Types Packs/Day Years [...] encounter Miscellaneous Notes * Telephone Encounter - Joan Arenas - 05/05/2019 9:57 AM EDT Sent patient an email advising them to complete diabetic lab work at least three days prior to their upcoming appointment. documented in this encounter Plan of Treatment Not on file documented as of this encounter Results * (ABNORMAL) HEMOGLOBIN A1C (05/15/2019 12:43 PM EST) GLYCATED HEMOGLOBIN A1C 7.0(H) <6.5 % 05/15/2019 4:14 PM EST [facility] ESTIMATED AVERAGE GLUCOSE 154 mg/dL 05/15/2019 4:14 PM EST [facility] 05/15/2019 12:4 3 PM EST 05/15/2019 12:43 PM EST Meghan Hicks MD LAB [facility] documented in this encounter Visit Diagnoses Diagnosis Controlled type 2 diabetes mellitus with microalbuminuria, without long-term current use of insulin (HCC)- Primary documented in this encounter Care Teams Lubrication Servicer Relationship Specialty Start Date End Date Meghan Hicks MD PCP - General Internal Medicine 04/08/12 01/15/22 [facility] PCP - General Internal Medicine 01/16/22 03/05/22 Meghan Hicks MD PCP - General Internal Medicine 03/06/22 03/18/22 Andree Gonzalez MD PCP - General Internal Medicine 03/19/22 Beatrice Holloway MD Specialist Cardiology 07/31/21 documented as of this encounter
--- OUTSIDE RECORDS SUMMARY | 2024-11-20 11:19 | XMS_ITS | Encounter Summary ---
Author Organization [facility] Address [address] [place] [address] Care Team Providers Care Transit Authority Police Officer Name Role Phone SenAndree Ayoub Primary Care Provider Encounter Details Date Type Department Care Team (Late st Contact Info) Description 11/20/2024 SocialShieldhart Message [facility] [address] [place] [address] Computer Processing Scheduler: Paulette Lopes, Christen Dodd MD [address] [place] [address] [facility] Social History Tobacco Use Types Packs/Day Years Used Date Smoking Tobacco: Former Cigarettes 1 45 1 954 - 1998 Smokeless Tobacco: Never Alcohol Use Standard Drinks/Week Comments Not Currently 0 (1 standard drink = 0.6 oz pur e alcohol) [facility] Utilities Answer Date Recorded In the past 12 months has [employer], gas, oil, or water [employer] threatened to shut off services in your [...] Info) Description 12/07/2024 8:15 AM EDT Follow-Up [facility] [address] [place] [address] Computer Processing Scheduler: Christen Dempsey MD [address] [place] [phone] 06/20/2025 10:45 AM EST Follow-Up [facility] Urology [address] [address] Computer Processing Scheduler: Christen Dempsey MD [address] [place] [address] documented as of this encounter Visit Diagnoses Not on filedocumented in this encounter Care Teams Transit Authority Police Officer Relationship Specialty Start Date End Date Ameena Andree PCP - General Family Medicine 03/26/23 documented as of this encounter
--- OUTSIDE RECORDS SUMMARY | 2024-11-20 11:19 | XMS_ITS | Encounter Summary ---
Author Organization [facility] Address [address] [place] [address] Care Team Providers Care Data Input Clerk Name Role Phone Meghan Hicks MD Primary Care Provider Beatrice Garvey MD Unavailable [facility], Pcp Primary Care Provider UnavailMeghan Jones MD Primary Care Provider Andree Stallworth MD Primary Care Provider Unavailnathaly barcenas Encounter Details Date Type Department Care Team Description 08/31/2019 Business Doc Medical Records [address] [place] [id number] Abstract, Provider Social History Tobacco Use Types [...] on filedocumented in this encounter Care Teams Data Input Clerk Relationship Specialty Start Date End Date Meghan Hicks MD PCP - General Internal Medicine 04/08/12 01/15/22 [facility], Pcp PCP - General Internal Medicine 01/16/22 03/05/22 Meghan Hicks MD PCP - General Internal Medicine 03/06/22 03/18/22 Andree Gonzalez MD PCP - General Internal Medicine 03/19/22 Beatrice Holloway MD Specialist Cardiology 07/31/21 documented as of this encounter
--- OUTSIDE RECORDS SUMMARY | 2024-11-20 11:19 | XMS_ITS | Encounter Summary ---
Author Organization [facility] Address [address] [place] [address] Care Team Providers Care Child Care Director Name Role Phone Meghan Hicks MD Primary Care Provider Beatrice Garvey MD Unavailable [facility] Primary Care Provider Meghan Chacko MD Primary Care Provider Andree Stallworth MD Primary Care Provider Janene barcenas Encounter Details Date Type Department Care Team Description 07/30/2020 Pt. Non Urgent Medic al Question Adult Medicine [address] [address] Meghan Hicks MD Social History Tobacco Use [...] AM EST documented as of this encounter Progress Notes * Arlin Mccarthy L.P.N. - 07/30/2020 12:52 PM ESTFrom: Francine Pope To: Meghan Hicks MD Sent: 07/30/2020 12:49 PM EST Subject: Lab Is [place] lab open now documented in this encounter Plan of Treatment Not on file documented as of this encounter Visit Diagnoses Not on filedocumented in this encounter Care Teams Child Care Director Relationship Specialty Start Date End Date Meghan Hicks MD PCP - General Internal Medicine 04/08/12 01/15/22 [facility], Pcp PCP - General Internal Medicine 01/16/22 03/05/22 Meghan Hicks MD PCP - General Internal Medicine 03/06/22 03/18/22 Andree Gonzalez MD PCP - General Internal Medicine 03/19/22 Beatrice Holloway MD Specialist Cardiology 07/31/21 documented as of this encounter
--- OUTSIDE RECORDS SUMMARY | 2024-11-20 11:19 | XMS_ITS | Encounter Summary ---
Author Organization [facility] Address [address] [place] [address] Care Team Providers Care Application Helper Name Role Phone Meghan Hicks MD Primary Care Provider Beatrice Garvey MD Unavailable [facility], Pcp Primary Care Provider Unavailabl e Meghan Hicks MD Primary Care Provider Andree Stallworth MD Primary Care Provider Unavailnathaly barcenas Encounter Details Date Type Department Care Team Description 08/05/2012 Recovery Operator Helper Report Medical Records [address] [place] [address] Ashok Forbes MD Social History Tobacco Use [...] on filedocumented in this encounter Care Teams Application Helper Relationship Specialty Start Date End Date Meghan Hicks MD PCP - General Internal Medicine 04/08/12 01/15/22 [facility], Pcp PCP - General Internal Medicine 01/16/22 03/05/22 Meghan Hicks MD PCP - General Internal Medicine 03/06/22 03/18/22 Andree Gonzalez MD PCP - General Internal Medicine 03/19/22 Beatrice Holloway MD Specialist Cardiology 07/31/21 documented as of this encounter
--- OUTSIDE RECORDS SUMMARY | 2024-11-20 11:19 | XMS_ITS | Encounter Summary ---
Author Organization [facility] Address [address] [place] [address] Care Team Providers Care Bearing Inspector Name Role Phone Meghan Hicks MD Primary Care Provider Beatrice Garvey MD Unavailable [facility], Pcp Primary Care Provider Unavailabl e Meghan Hicks MD Primary Care Provider Andree Stallworth MD Primary Care Provider Unavailnathaly barcenas Encounter Details Date Type Department Care Team Description 07/13/2012 [facility] Medical Records [address] [place] [address] Titus Salcido PA Social History Tobacco Use [...] on filedocumented in this encounter Care Teams Bearing Inspector Relationship Specialty Start Date End Date [...]
--- OUTSIDE RECORDS SUMMARY | 2024-11-20 11:19 | XMS_ITS | Encounter Summary ---
Author Organization [employer] Address [address] [facility] [address] [place] [address] Care Team Providers Care Sales Director Name Role Phone Unavailable Primary Care Provider [...] Description 02/21/2025 10:50 AM EDT Office Visit [facility] [address] [place] [address] Krystal Ramesh documented as of this encounter Visit Diagnoses Not on filedocumented in this encounter Care Teams Sales Director Relationship Specialty Start Date End Date Dr. Meghan Hicks Primary Care Provider 08/17/[address] Andree Lindquist [facility] Primary Care [place], [place] Primary Care Provider 08/17/22 documented as of this encounter
--- OUTSIDE RECORDS SUMMARY | 2024-11-20 11:19 | XMS_ITS | Encounter Summary ---
Author Organization [facility] Address [address] [place] [address] Care Team Providers Care Pediatrician Name Role Phone Meghan Hicks MD Primary Care Provider Beatrice Garvey MD Unavailable [facility], Pcp Primary Care Provider Unavailabl e Meghan Hicks MD Primary Care Provider Andree Stallworth MD Primary Care Provider Unavaila ble Encounter Details Date Type Department Care Team Description 03/20/2016 Front Desk Person Report Medical Records [address] [place] [phone] Mica Summers PA-C Social History Tobacco Use [...] on filedocumented in this encounter Care Teams Pediatrician Relationship Specialty Start Date End Date Meghan [...]
--- OUTSIDE RECORDS SUMMARY | 2024-11-20 11:19 | XMS_ITS | Clinical Summary ---
Author Organization [employer] Address [address] [facility] 7t [place] [address] Care Team Providers Care Stone Engraver Name Role Phone Unavailable Primary Care Provider Unavailabl e Allergies Active Allergy Reactions Criticality Noted Date Comments Cefdinir Unknown 07/02/2022 Sulfa Antibiotics Unknown 07/02/2022 Trimethoprim Unknown 07/02/2022 Medications Umeclidinium [place] (INCRUSE ELLIPTA IN) Incruse Ellipta Ac tive [...] Description 02/21/2025 10:50 AM EDT Office Visit [place] [facility] [address] [place] [address] Krystal Ramesh Health Maintenance Due Date Last [...] Relevant to Health Maintenance Insurance # [address] [place] [address] MEDICARE [facility] MEDEX CARE DENTAL - HSN FULL (MEDICAID) Care Teams Stone Engraver Relationship Specialty Start Date End Date Dr. Andree Lindquist [facility] Care [place], [place] Primary Care Provider 08/17/22
--- OUTSIDE RECORDS SUMMARY | 2024-11-20 11:19 | XMS_ITS | Encounter Summary ---
Author Organization [facility] Address [address] [place] [address] Care Team Providers Care Courier Driver Name Role Phone Meghan Hicks MD Primary Care Provider Beatrice Garvey MD Unavailable [facility], [facility] Primary Care Provider Unavailbrown e Meghan Hicks MD Primary Care Provider Andree Stallworth MD Primary Care Provider Unavaila ble Encounter Details Date Type Department Care Team Description 07/25/2012 Orders Only Medicine/Pediatrics - [address] [phone] Meghan Hicks MD Encounter for therapeutic drug [...] Diagnoses Diagnosis Encounter for therapeutic drug monitoring watermaster (current) use of anticoagulants Long-term (current) use of anticoagulants Acute venous embolism and thrombosis of unspecified deep vessels of lower extremity documented in this encounter Care Teams Courier Driver Relationship Specialty Start Date End Date Meghan Hicks MD PCP - General Internal Medicine 04/08/12 01/15/22 [facility], Pcp PCP - General Internal Medicine 01/16/22 03/05/22 Meghan Hicks MD PCP - General Internal Medicine 03/06/22 03/18/22 Andree Gonzalez MD PCP - General Internal Medicine 03/19/22 Beatrice Holloway MD Specialist Cardiology 07/31/21 documented as of this encounter
--- OUTSIDE RECORDS SUMMARY | 2024-11-20 11:19 | XMS_ITS | Encounter Summary ---
Author Organization [facility] Address [address] [place] [address] Care Team Providers Care High School Professional Name Role Phone Meghan Hicks MD Primary Care Provider Beatrice Garvey MD Unavailable [facility], Pcp Primary Care Provider Unavailbrown e Meghan Hicks MD Primary Care Provider Andree Stallworth MD Primary Care Provider Unavailnathaly barcenas Encounter Details Date Type Department Care Team Description 01/05/2017 Release of Information Medical Records [address] [place] [id number] Abstract, Provider Social History Tobacco Use Types [...] in this encounter Care Teams High School Professional Relationship Specialty Start Date End Date Meghan [...]
--- OUTSIDE RECORDS SUMMARY | 2024-11-20 11:19 | XMS_ITS | Encounter Summary ---
Author Organization [facility] Address [address] [place] [address] Care Team Providers Care Floor Service Worker Spring Name Role Phone Meghan Hicks MD Primary Care Provider Beatrice Garvey MD Unavailable [facility], [facility] Primary Care Provider UnavailMeghan Jones MD Primary Care Provider Andree Stallworth MD Primary Care Provider Unavailnathaly barcenas Encounter Details Date Type Department Care Team Description 08/15/2020 Machine Staker Report Medical Records [address] [place] [address] Social History Tobacco Use Types Packs/Day Years [...] on filedocumented in this encounter Care Teams Floor Service Worker Spring Relationship Specialty Start Date End Date Meghan [...]
--- OUTSIDE RECORDS SUMMARY | 2024-11-20 11:19 | XMS_ITS | Encounter Summary ---
Author Organization [facility] Address [address] [place] [address] Care Team Providers Care Compliance Clerk Name Role Phone Meghan Hicks MD Primary Care Provider Beatrice Garvey MD Unavailable [facility], Pcp Primary Care Provider Unavailabl e Meghan Hicks MD Primary Care Provider Andree Stallworth MD Primary Care Provider Unavaila narinder Encounter Details Date Type Department Care Team Description 05/12/2013 Hospice Coordinator Report Medical Records [address] [place] [phone] Kenney Peraza MD Social History Tobacco Use [...] on filedocumented in this encounter Care Teams Compliance Clerk Relationship Specialty Start Date End Date Meghan Hicks MD PCP - General Internal Medicine 04/08/12 01/15/22 [facility], Pcp PCP - General Internal Medicine 01/16/22 03/05/22 Meghan Hicks MD PCP - General Internal Medicine 03/06/22 03/18/22 Andree Gonzalez MD PCP - General Internal Medicine 03/19/22 Beatrice Holloway MD Specialist Cardiology 07/31/21 documented as of this encounter
--- OUTSIDE RECORDS SUMMARY | 2024-11-20 11:19 | XMS_ITS | Encounter Summary ---
Author Organization [facility] Address [address] [place] [address] Care Team Providers Care Settlement Agent Name Role Phone Meghan Hicks MD Primary Care Provider Beatrice Garvey MD Unavailable [facility], Pcp Primary Care Provider Unavailabl e Meghan Hicks MD Primary Care Provider Unava Andree Nicholas MD Primary Care Provider Unavailnathaly barcenas Encounter Details Date Type Department Care Team Description 01/04/2017 Breaker Off Report Medical Records [address] [place] [address] Kyle Barroso MD Social History Tobacco Use [...] on filedocumented in this encounter Care Teams Settlement Agent Relationship Specialty Start Date End Date Meghan Hicks MD PCP - General Internal Medicine 04/08/12 01/15/22 [facility], Pcp PCP - General Internal Medicine 01/16/22 03/05/22 Meghan Hicks MD PCP - General Internal Medicine 03/06/22 03/18/22 Andree Gonzalez MD PCP - General Internal Medicine 03/19/22 Beatrice Holloway MD Specialist Cardiology 07/31/21 documented as of this encounter
--- OUTSIDE RECORDS SUMMARY | 2024-11-20 11:19 | XMS_ITS | Encounter Summary ---
Author Organization [facility] Address [address] [place] [address] Care Team Providers Care Hatch Boss Name Role Phone Meghan Hicks MD Primary Care Provider Unava Beatrice Silva MD Unavailable [facility], [facility] Primary Care Provider Unavailabl e Meghan Hicks MD Primary Care Provider Unava Andree Nicholas MD Primary Care Provider Unavaila ble Reason for Visit * Reason Onset Date Comments urination problems 12/14/2012 Encounter Details Date Type Department Care Team Description 12/14/2012 Telephone Urology [address] [place] [phone] Kenney Peraza MD urination problems Social History [...] AM EDT PATIENT CALLED YOUR OFFICE IN [place] BECAUSE SHE SUSPECTED SHE HAD A UTI. SHE WAS GIVEN ANTIBIOTICS BY A PA AND WENT TO THE LAB AT [facility] FOR TEST. SHE WOULD LIKE TO KNOW HER TEST RESULTS. SHE WILL COMPLETE THE ANTIBIOTIC TREATMENT TOMORROW. SHE WOULD LIKE DR PERAZA TO CALL HER BACK AT [phone] documented in this encounter Plan of Treatment Not on file documented as of this encounter Visit Diagnoses Not on filedocumented in this encounter Care Teams Hatch Boss Relationship Specialty Start Date End Date Meghan Hicks MD PCP - General Internal Medicine 04/08/12 01/15/22 [facility], [facility] Pcp PCP - General Internal Medicine 01/16/22 03/05/22 Meghan Hicks MD PCP - General Internal Medicine 03/06/22 03/18/22 Andree Gonzalez MD PCP - General Internal Medicine 03/19/22 Beatrice Holloway MD Specialist Cardiology 07/31/21 documented as of this encounter
--- OUTSIDE RECORDS SUMMARY | 2024-11-20 11:19 | XMS_ITS | Encounter Summary ---
Author Organization [facility] Address [address] [place] [address] Care Team Providers Care Deputy Register Of Deeds Name Role Phone Meghan Hicks MD Primary Care Provider Beatrice Garvey MD Unavailable [facility], [facility] Primary Care Provider UnavailMeghan Jones MD Primary Care Provider Andree Stallworth MD Primary Care Provider Unavaila ble Reason for Visit * Reason Onset Date Comments radiology 09/20/2015 Encounter Details Date Type Department Care Team Description 09/20/2015 Telephone Medicine/Pediatrics - [address] [phone] Meghan Hicks MD radiology Social [...] explain she would be going over to [facility] for an xray of her foot. She has an order from Dr. Mitzi Lowery, phone: [phone] for 09/20/15 of her right foot. I made a copy of this order and placed it in Dr. Hicks's mail box just in case. documented in this encounter Plan of Treatment Not on file documented as of this encounter Visit Diagnoses Not on filedocumented in this encounter Care Teams Deputy Register Of Deeds Relationship Specialty Start Date End Date Meghan Hicks MD PCP - General Internal Medicine 04/08/12 01/15/22 [facility], [facility] PCP - General Internal Medicine 01/16/22 03/05/22 Meghan Hicks MD PCP - General Internal Medicine 03/06/22 03/18/22 Andree Gonzalez MD PCP - General Internal Medicine 03/19/22 Beatrice Holloway MD Specialist Cardiology 07/31/21 documented as of this encounter
--- OUTSIDE RECORDS SUMMARY | 2024-11-20 11:19 | XMS_ITS | Encounter Summary ---
Author Organization [facility] Address [address] [place] [address] Care Team Providers Care Transit Authority Police Officer Name Role Phone Meghan Hicks MD Primary Care Provider Beatrice Garvey MD Unavailable [facility], Pcp Primary Care Provider Unavailabl e Meghan Hicks MD Primary Care Provider Andree Stallworth MD Primary Care Provider Unavailnathaly barcenas Encounter Details Date Type Department Care Team Description 09/11/2013 Decorator Mannequin Report Medical Records [address] [place] [address] Fuad Wooten MD Social History Tobacco Use [...] Officer Relationship Specialty Start Date End Date Meghan Hicks MD PCP - General Internal Medicine 04/08/12 01/15/22 [facility], Pcp PCP - General Internal Medicine 01/16/22 03/05/22 Meghan Hicks MD PCP - General Internal Medicine 03/06/22 03/18/22 Andree Gonzalez MD PCP - General Internal Medicine 03/19/22 Beatrice Holloway MD Specialist Cardiology 07/31/21 documented as of this encounter
--- OUTSIDE RECORDS SUMMARY | 2024-11-20 11:19 | XMS_ITS | Encounter Summary ---
Author Organization [facility] Address [address] [place] [address] Care Team Providers Care Tattoo And Body Artist Name Role Phone Meghan Hicks MD Primary Care Provider Beatrice Garvey MD Unavailable [facility], Pcp Primary Care Provider Unavailabl e Meghan Hicks MD Primary Care Provider Andree Stallworth MD Primary Care Provider Unavaila ble Encounter Details Date Type Department Care Team Description 02/01/2020 Ball Winder Report Medical Records [address] [place] [address] Loc Cheung MD Social History Tobacco Use [...] on filedocumented in this encounter Care Teams Tattoo And Body Artist Relationship Specialty Start Date End Date Meghan [...]
--- OUTSIDE RECORDS SUMMARY | 2024-11-20 11:19 | XMS_ITS | Encounter Summary ---
Author Organization [facility] Address [address] [place] [address] Care Team Providers Care Vice President Of Procurement Name Role Phone Meghan Hicks MD Primary Care Provider Beatrice Garvey MD Unavailable [facility], Pcp Primary Care Provider Unavailabl e Meghan Hicks MD Primary Care Provider Andree Stallworth MD Primary Care Provider Unavaila narinder Encounter Details Date Type Department Care Team Description 04/16/2020 Housing Case Manager Report Medical Records [address] [place] [phone] Loc Cheung MD Social History Tobacco Use [...] on filedocumented in this encounter Care Teams Vice President Of Procurement Relationship Specialty Start Date End Date Meghan Hicks MD PCP - General Internal Medicine 04/08/12 01/15/22 [facility], Pcp PCP - General Internal Medicine 01/16/22 03/05/22 Meghan Hicks MD PCP - General Internal Medicine 03/06/22 03/18/22 Andree Gonzalez MD PCP - General Internal Medicine 03/19/22 Beatrice Holloway MD Specialist Cardiology 07/31/21 documented as of this encounter
--- OUTSIDE RECORDS SUMMARY | 2024-11-20 11:19 | XMS_ITS | Encounter Summary ---
Author Organization [facility] Address [address] [place] [address] Care Team Providers Care Construction Controller Name Role Phone Meghan Hicks MD Primary Care Provider Beatrice Garvey MD Unavailable [facility], Pcp Primary Care Provider Unavailabl e Meghan Hicks MD Primary Care Provider Andree Stallworth MD Primary Care Provider Unavailnathaly barcenas Encounter Details Date Type Department Care Team Description 05/29/2019 Aircraft Cylinder Mechanic Report Medical Records [address] [place] [address] Social History Tobacco Use Types Packs/Day Years [...] on filedocumented in this encounter Care Teams Construction Controller Relationship Specialty Start Date End Date Meghan Hicks MD PCP - General Internal Medicine 04/08/12 01/15/22 [facility], Pcp PCP - General Internal Medicine 01/16/22 03/05/22 Meghan Hicks MD PCP - General Internal Medicine 03/06/22 03/18/22 Andree Gonzalez MD PCP - General Internal Medicine 03/19/22 Beatrice Holloway MD Specialist Cardiology 07/31/21 documented as of this encounter
--- OUTSIDE RECORDS SUMMARY | 2024-11-20 11:19 | XMS_ITS | Encounter Summary ---
Author Organization [facility] Address [address] [place] [address] Care Team Providers Care Landscape Artist Name Role Phone Meghan Hicks MD Primary Care Provider Beatrice Garvey MD Unavailable [facility], Pcp Primary Care Provider Unavailabl e Meghan Hicks MD Primary Care Provider Andree Stallworth MD Primary Care Provider Unavaila narinder Encounter Details Date Type Department Care Team Description 06/19/2013 Medical Communication Specialist Report Medical Records [address] [place] [phone] Ashok Forbes MD Social History Tobacco Use [...] on filedocumented in this encounter Care Teams Landscape Artist Relationship Specialty Start Date End Date [...]
--- OUTSIDE RECORDS SUMMARY | 2024-11-20 11:19 | XMS_ITS | Encounter Summary ---
Author Organization [facility] Address [address] [place] [address] Care Team Providers Care Atg Architect Name Role Phone Meghan Hicks MD Primary Care Provider Beatrice Garvey MD Unavailable [facility], [facility] Primary Care Provider UnavailMeghan Jones MD Primary Care Provider Andree Stallworth MD Primary Care Provider Unavailnathaly ble Encounter Details Date Type Department Care Team Description 07/19/2020 Orders Only Medicine/Pediatrics - [address] [address] Meghan Hicks MD Preoperative examination; Screening for [...] NEGATIVE NEGATIVE 07/30/2020 6:54 PM EST [facility] RBC-Urine 3 0 - 4 /HPF 07/30/2020 6:56 PM EST [facility] WBC-Urine 4 0 - 4 /HPF 07/30/2020 6:56 PM EST [facility] EPITH CELLS, URINE 93(H) 0 - 60 /LPF 07/30/2020 6:56 PM EST [facility] BACTERIA, URINE NEGATIVE NEGATIVE 07/30/2020 6:56 PM EST [facility] HYALINE CAST, URINE 1 0 - 3 /LPF 07/30/2020 6:56 PM EST [facility] 07/30/2020 4:38 PM EST 07/30/2020 4:38 PM EST Meghan Hicks MD LAB [facility] * URINE, CULTURE (07/30/2020 4:37 PM EST) Urine (Urine) 07/30/2020 4:3 7 PM EST 07/30/2020 4:38 PM EST Narrative [facility] - 07/31/2020 1:32 PM EST <10,000 CFU/mL NORMAL SKIN/UROGENITAL DACIA PRESENT. Meghan Hicks MD LAB [facility] * (ABNORMAL) COMPREHENSIVE METABOLIC PANEL (07/30/2020 3:42 [...] EST [facility] Comment: If patient is -Armenian, multiply result by 1.21 Chronic Kidney Disease: [...] DIFF PLATELET) (07/30/2020 3:42 PM EST) Pathologist [facility] WHITE BLOOD COUNT 8.7 4.8 - 10.8 [...] anemia documented in this encounter Care Teams Atg Architect Relationship Specialty Start Date End Date Meghan Hicks MD PCP - General Internal Medicine 04/08/12 01/15/22 [facility], Pcp PCP - General Internal Medicine 01/16/22 03/05/22 Meghan Hicsk MD PCP - General Internal Medicine 03/06/22 03/18/22 Andree Gonzalez MD PCP - General Internal Medicine 03/19/22 Beatrice Holloway MD Specialist Cardiology 07/31/21 documented as of this encounter
--- OUTSIDE RECORDS SUMMARY | 2024-11-20 11:19 | XMS_ITS | Encounter Summary ---
Author Organization [facility] Address [address] [place] [address] Care Team Providers Care Grain Unloader Name Role Phone Meghan Hicks MD Primary Care Provider Beatrice Garvey MD Unavailable [facility], Pcp Primary Care Provider Unavailabl e Meghan Hicks MD Primary Care Provider Andree Stallworth MD Primary Care Provider Unavailnathaly barcenas Encounter Details Date Type Department Care Team Description 01/02/2013 Contact Worker Lithography Report Medical Records [address] [place] [address] Ashok Forbes MD Social History Tobacco Use [...] on filedocumented in this encounter Care Teams Grain Unloader Relationship Specialty Start Date End Date Meghan Hicks MD PCP - General Internal Medicine 04/08/12 01/15/22 [facility], Pcp PCP - General Internal Medicine 01/16/22 03/05/22 Meghan Hicks MD PCP - General Internal Medicine 03/06/22 03/18/22 Andree Gonzalez MD PCP - General Internal Medicine 03/19/22 Beatrice Holloway MD Specialist Cardiology 07/31/21 documented as of this encounter
--- OUTSIDE RECORDS SUMMARY | 2024-11-20 11:19 | XMS_ITS | Encounter Summary ---
Author Organization [facility] Address [address] [place] [address] Care Team Providers Care Lap Regulator Name Role Phone Meghan Hicks MD Primary Care Provider Beatrice Garvey MD Unavailable [facility], [facility]cp Primary Care Provider UnavailMeghan Jones MD Primary Care Provider Andree Stallworth MD Primary Care Provider Unavailnathaly barcenas Encounter Details Date Type Department Care Team Description 09/30/2018 Pt. Non Urgent Medic al Question Medicine/Pediatrics - [address] [phone] Meghan Hicks MD Social History Tobacco Use [...] on filedocumented in this encounter Care Teams Lap Regulator Relationship Specialty Start Date End Date Meghan Hicks MD PCP - General Internal Medicine 04/08/12 01/15/22 [facility] PCP - General Internal Medicine 01/16/22 03/05/22 Meghan Hicks MD PCP - General Internal Medicine 03/06/22 03/18/22 Andree Gonzalez MD PCP - General Internal Medicine 03/19/22 Beatrice Holloway MD Specialist Cardiology 07/31/21 documented as of this encounter
--- OUTSIDE RECORDS SUMMARY | 2024-11-20 11:20 | XMS_ITS | Encounter Summary ---
Author Organization [facility] Address [address] [place] [address] Care Team Providers Care Tennis Ball Cover Cementer Name Role Phone Eva Azar MD Primary Care Provider Meghan Paredes MD Primary Care Provider Beatrice Garvey MD Unavailable [facility], Pcp Primary Care Provider Meghan Chacko MD Primary Care Provider Andree Stallworth MD Primary Care Provider Janene barcenas Encounter Details Date Type Department Care Team Description 03/07/2012 [place] Medicine/Pediatrics - [address] [phone] Eva Azar MD Social History [...] on filedocumented in this encounter Care Teams Tennis Ball Cover Cementer Relationship Specialty Start Date End Date Eva Azar MD PCP - General 04/03/10 04/07/12 Meghan Hicks MD PCP - General Internal Medicine 04/08/12 01/15/22 [facility], [facility] PCP - General Internal Medicine 01/16/22 03/05/22 Meghan Hicks MD PCP - General Internal Medicine 03/06/22 03/18/22 Andree Gonzalez MD PCP - General Internal Medicine 03/19/22 Beatrice Holloway MD Specialist Cardiology 07/31/21 documented as of this encounter
--- OUTSIDE RECORDS SUMMARY | 2024-11-20 11:20 | XMS_ITS | Encounter Summary ---
Author Organization [facility] Address [address] [place] [address] Care Team Providers Care Admissions Specialist Name Role Phone Meghan Hicks MD Primary Care Provider Beatrice Garvey MD Unavailable [facility], Pcp Primary Care Provider Unavailabl e Meghan Hicks MD Primary Care Provider Andree Stallworth MD Primary Care Provider Unavailnathaly barcenas Encounter Details Date Type Department Care Team Description 06/05/2021 Hairspring Staker Report Medical Records [address] [place] [address] Abstract, Provider Social History Tobacco Use Types [...] on filedocumented in this encounter Care Teams Admissions Specialist Relationship Specialty Start Date End Date [...]
--- OUTSIDE RECORDS SUMMARY | 2024-11-20 11:20 | XMS_ITS | Encounter Summary ---
Author Organization [facility] Address [address] [place] [address] Care Team Providers Care Chairman & Co Founder Name Role Phone Meghan Hicks MD Primary Care Provider Beatrice Garvey MD Unavailable [facility], 1928–1983, Pcp Primary Care Provider Unavailabl e Meghan Hicks MD Primary Care Provider Andree Stallworth MD Primary Care Provider Unavailnathaly barcenas Encounter Details Date Type Department Care Team Description 08/14/2021 Surgical Supervisor Report Medical Records [address] [place] [address] Abstract, Provider Social History Tobacco Use Types [...] on filedocumented in this encounter Care Teams Chairman & Co Founder Relationship Specialty Start Date End Date Meghan Hicks MD PCP - General Internal Medicine 04/08/12 01/15/22 [facility], [facility]–1983, Pcp PCP - General Internal Medicine 01/16/22 03/05/22 Meghan Hicks MD PCP - General Internal Medicine 03/06/22 03/18/22 Andree Gonzalez MD PCP - General Internal Medicine 03/19/22 Beatrice Holloway MD Specialist Cardiology 07/31/21 documented as of this encounter
--- OUTSIDE RECORDS SUMMARY | 2024-11-20 11:20 | XMS_ITS | Encounter Summary ---
Author Organization [facility] Address [address] [place] [address] Care Team Providers Care Web Content Producer Name Role Phone Meghan Hicks MD Primary Care Provider Beatrice Garvey MD Unavailable [facility], Pcp Primary Care Provider Unavailabl e Meghan Hicks MD Primary Care Provider Andree Stallworth MD Primary Care Provider Unavaila ble Encounter Details Date Type Department Care Team Description 09/11/2014 [facility] - [address] [phone] Eric Ochoa PA-C Social History Tobacco Use [...] on filedocumented in this encounter Care Teams Web Content Producer Relationship Specialty Start Date End Date Meghan Hicks MD PCP - General Internal Medicine 04/08/12 01/15/22 [facility], Pcp PCP - General Internal Medicine 01/16/22 03/05/22 Meghan Hicks MD PCP - General Internal Medicine 03/06/22 03/18/22 Andree Gonzalez MD PCP - General Internal Medicine 03/19/22 Beatrice Holloway MD Specialist Cardiology 07/31/21 documented as of this encounter
--- OUTSIDE RECORDS SUMMARY | 2024-11-20 11:20 | XMS_ITS | Referral Summary ---
Author Organization [facility] Address [address] [place] [address] Care Team Providers Care Shank Taper Name Role Phone Andree Lindquist Primary Care Provider [phone] Encounters Date Type Department Care Team Description 11/20/2024 myChart Message [facility] [address] [place] [phone] Emergency Department Technician: Christen Dempsey MD [facility] 10/27/2024 11:55 PM EDT - 11/02/2024 1:35 PM EDT Hospital Encounter [facility] 2 [facility] [address] [place] [address] Renard Hernandez MD Fidrocki, James E., MD Feibish, Gordon, DO MacGinnis, Christine O., DO Hebert, Christine M., MD Hyponatremia (Primary Dx); Anemia, unspecified type; AUGUSTINE (acute kidney injury) (HCC); Confusion; Dysphagia, unspecified type Discharge Disposition: Inpatient Rehab Facility (IRF) (62) 10/27/2024 Patient Self-Triage [address] [address] Urgent Care, [facility] PhysicianMD 10/17/2024 Telephone [facility] [address] [place] [phone] Emergency Department Technician: Christen Dempsey MD 10/17/2024 8:20 AM EDT - 10/17/2024 9:10 AM EDT Surgery [facility] Operating Room [address] [place] [address] Christen Lopes MD CYSTOURETHROSCOPY WITH CHEMODENERVATION Botox 100 units; WITH FULGERATION . [99095 (CPT??)] 10/17/2024 8:40 AM EDT Anesthesia Event [facility] Operating Room [address] [place] [address] Victorino Cox MD Ackroyd, Luke J. 10/17/2024 6:33 AM EDT - 10/17/2024 10:56 AM EDT Hospital Encounter [facility] Operating [facility] [address] [place] [address] Christen Lopes MD Discharge Disposition: Home or Self Care w/ Planned Readmission (81) 10/03/2024 Telephone [facility] [address] [place] [address] Emergency Department Technician: Christen Dempsey MD 10/03/2024 11:30 AM EDT Pre-Admission Testing [facility] [address] [place] [address] Meka Dover NP Urge incontinence (Primary Dx); Pre-op evaluation; Primary hypertension 09/05/2024 Khang Message [facility] [address] [place] [address] Emergency Department Technician: Paulette Sierra [facility] Provider Surgery Wednesday10/17/2024 09/04/2024 Orders Only [facility] [address] [address] Emergency Department Technician: Christen Dempsey MD 08/31/2024 Telephone [facility] [address] [place] [address] Emergency Department Technician: Christen Dempsey MD Update on pt's. symptoms 08/30/2024 Orders Only [facility] [address] [place] [address] Emergency Department Technician: Christen Dempsey MD Acute cystitis with hematuria (Primary Dx) 08/25/2024 1:00 PM EST Pre-Admission Testing [facility] [address] [place] [address] Urge incontinence (Primary Dx); Preoperative testing 08/23/2024 Telephone [facility] [address] [place] [address] Emergency Department Technician: Christen Dempsey MD from Last 3 Months [...] daily see TAVR No statin present on FOOD TRADES ASSISTANTS med rec on admission, although noted in EMR that patient should be taking atorvastatin 40 mg, unclear if this was discontinued FOOD TRADES ASSISTANTS - consider re-initiating statin while admitted; plan to discuss with family Assessment & Plan (10/30/2024 3:03 PM EDT): Home meds: asa 81 mg daily see TAVR No statin present on FOOD TRADES ASSISTANTS med rec on admission, although noted in EMR that patient should be taking atorvastatin 40 mg, unclear if this was discontinued FOOD TRADES ASSISTANTS - consider re-initiating statin while admitted Assessment & Plan (10/30/2024 11:55 AM EDT): Home meds: asa 81 mg daily see TAVR No statin present on FOOD TRADES ASSISTANTS med rec on admission, although noted in EMR that patient should be taking atorvastatin 40 mg, unclear if this was discontinued FOOD TRADES ASSISTANTS - consider re-initiating statin while admitted Impaired mobility and ADLs 10/30/2024 Assessment & Plan (11/01/2024 7:12 AM EDT): PT following, rec dc to inpt facility Assessment & Plan (10/30/2024 3:03 PM EDT): PT following, rec dc to inpt facility Dysphagia 10/29/2024 Assessment & Plan (11/01/2024 7:12 AM EDT): Patient with sensation of something stuck in her throat. HUMAN RESOURCE STATISTICIAN following, most recent eval 10/30: Recommend a level 0/thin liquid, level 7/easy to chew solid diet. Recommend intermittent supervision to cue patient for recommended swallow strategies: upright 90 deg during meals, small bite/sips, SINGLE sips at a time. Assessment & Plan (10/30/2024 3:03 PM EDT): Patient with sensation of something stuck in her throat. HUMAN RESOURCE STATISTICIAN following, most recent eval 10/30: Recommend a level 0/thin liquid, level 7/easy to chew solid diet. Recommend intermittent supervision to cue patient for recommended swallow strategies: upright 90 deg during meals, small bite/sips, SINGLE sips at a time. Assessment & Plan (10/30/2024 11:55 AM EDT): Patient with sensation of something stuck in her throat. HUMAN RESOURCE STATISTICIAN following, most recent eval 10/30: Recommend a level 0/thin liquid, level 7/easy to chew solid diet. Recommend intermittent supervision to cue patient for recommended swallow strategies: upright 90 deg during meals, small bite/sips, SINGLE sips at a time. Assessment & Plan (10/29/2024 1:57 PM EDT): Patient with sensation of something stuck in her throat. HUMAN RESOURCE STATISTICIAN on 420 clearing patient for a level 6 solids and level 0 liquid. Plan for MBS per HUMAN RESOURCE STATISTICIAN Continue level 6 solids and level 0 [...] to address severe anemia. -No indication for HITCH TECHNICIAN at this time; given the patient's underlying comorbidities, would discuss GOC with family before committing to HITCH TECHNICIAN should a potential need develop. Acute renal [...] drink = 0.6 oz pur e alcohol) [facility] Utilities Answer Date Recorded In the past 12 months has e [employer], oil, or water [employer] threatened to shut off services in your [...] Info) Description 12/07/2024 8:15 AM EDT Follow-Up [facility] [address] [place] [address] Emergency Department Technician: Christen Demspey MD [address] [place] [phone] 06/20/2025 10:45 AM EST Follow-Up [facility] [address] [address] Emergency Department Technician: Christen Dempsey MD [address] [place] [phone] Procedures * Due to [place] state law, this organization might not be sharing negative HIV tests. Procedure Name Priority Date/Time Associated Diagnosis Comments POCT GLUCOSE Routine 11/02/2024 12:12 PM EDT POCT GLUCOSE Routine 11/02/2024 8:34 AM EDT BASIC METABOLIC PANEL Routine 11/02/2024 6:01 AM EDT CBC AUTO DIFFERENTIAL Routine 11/02/2024 6:01 AM EDT POCT GLUCOSE Routine 11/01/2024 8:36 PM EDT POCT GLUCOSE Routine 11/01/2024 5:37 PM EDT [facility] KARATE TEACHER PICC Routine 2:39 PM EDT POCT GLUCOSE [...] LACTATE W/VBG Routine 10/28/2024 4:56 AM EDT TEJAAD TOP, URN Routine 10/28/2024 2:47 AM EDT [...] AUTO DIFFERENTIAL STAT 10/28/2024 12:58 AM EDT [place] CYSTOURETHROSCOPY INJ CHEMODENERVATION BLADDER 10/17/2024 8:25 AM EDT Urge incontinence Special Needs BOTOX POCT GLUCOSE Routine 10/17/2024 7:18 AM EDT URINALYSIS, OUTSIDE LAB Routine 09/02/19 9:20 AM EST LAB - SCANNED 08/29/2024 from Last 3 Months Results * Due to [place] state law, this organization might not be sharing negative HIV tests. * (ABNORMAL) POCT Glucose, interfaced (11/02/2024 12:12 PM EDT) Only the most recent of21 resultswithin the time period is included. [facility] Glucose, POCT 237(H) 70 - 99 mg/dL 11/02/2024 12:23 PM EDT [facility] Comment: The tail worker has not determined the efficacy of this test in Critically ill patients. ??[facility] defines Critically ill patients for the [...] POCT ORDERABLES - DEV ICE Final Result [facility] [address] [place] [address], [place] * (ABNORMAL) CBC Auto Differential (11/02/2024 6:01 AM EDT) Only the most recent of9 resultswithin the time period is included. WBC 10.6 3.8 - 10.8 10*3/uL 11/02/2024 6:26 AM EDT [facility] RBC 3.33(L) 3.80 - 5.10 10*6/uL 11/02/2024 6:26 AM EDT [facility] Hemoglobin 7.4(L) 11.7 - 15.5 g/dL 11/02/2024 6:26 AM EDT [facility] Hematocrit 23.7(L) 35.0 - 45.0 % 11/02/2024 6:26 AM EDT [facility] MCV 71.2(L) 80.0 - 100.0 fL 11/02/2024 6:26 AM EDT [facility] MCH 22.2(L) 27.0 - 33.0 pg 11/02/2024 6:26 AM EDT [facility] MCHC 31.2(L) 32.0 - 36.0 g/dL 11/02/2024 6:26 AM EDT [facility] RDW 18.0(H) 11.0 - 15.0 % 11/02/2024 6:26 AM EDT [facility] Platelets 363 140 - 400 10*3/uL 11/02/2024 6:26 AM EDT [facility] MPV 9.3 7.5 - 12.5 fL 11/02/2024 6:26 AM [facility] Neutrophil % 73.4 % 11/02/2024 6:26 AM [facility] Immature Grans % 2.0(H) 0.0 - 0.9 % 11/02/2024 6:26 AM [facility] Lymphocyte % 10.7 % 11/02/2024 6:26 AM [facility] Monocyte % 9.0 % 11/02/2024 6:26 AM [facility] Eosinophil % 4.8 % 11/02/2024 6:26 AM [facility] Basophil % 0.1 % 11/02/2024 6:26 AM [facility] Neutrophil # 7.76 1.50 - 7.80 10*3/uL 11/02/2024 6:26 AM [facility] Immature Grans # 0.21(H) <=0.03 10*3/uL 11/02/2024 6:26 AM [facility] Lymphocyte # 1.10 0.85 - 3.90 10*3/uL 11/02/2024 6:26 AM [facility] Monocyte # 1.00(H) 0.20 - 0.95 10*3/uL 11/02/2024 6:26 AM [facility] Eosinophil # 0.50 0.02 - 0.50 10*3/uL 11/02/2024 6:26 AM [facility] Basophil # <0.03 0.00 - 0.20 10*3/uL 11/02/2024 6:26 AM [facility] nRBC % 0.0 /100 WBCs 11/02/2024 6:26 AM [facility] nRBC # <0.01 <0.01 10*3/uL 11/02/2024 6:26 AM EDT [facility] Blood Structure of peripheral vein / Unknown Venipuncture / Unknown 11/02/2024 6:01 AM EDT 11/02/2024 6:12 AM EDT us Radha Elias MD LAB BLOOD ORDERABLES Ambar raiza Result [facility] [address] [place] [address], * (ABNORMAL) Basic metabolic panel (11/02/2024 6:01 AM EDT) Only the most recent of8 resultswithin the time period is included. NA 137 135 - 145 mmol/L 11/02/2024 6:43 AM EDT [facility] K 4.1 3.5 - 5.3 mmol/L 11/02/2024 6:43 AM EDT [facility] Cl 101 98 - 107 mmol/L 11/02/2024 6:43 AM EDT [facility] CO2 25 22 - 32 mmol/L 11/02/2024 6:43 AM EDT [facility] BUN 29(H) 7 - 23 mg/dL 11/02/2024 6:43 AM EDT [facility] Creatinine 0.94 0.50 - 1.20 mg/dL 11/02/2024 6:43 AM EDT [facility] Glucose 138(H) 65 - 99 mg/dL 11/02/2024 6:43 AM EDT [facility] Calcium 8.9 8.6 - 10.5 mg/dL 11/02/2024 6:43 AM EDT [facility] Anion Gap 11 5 - 15 11/02/2024 6:43 AM EDT [facility] eGFR 63 >=60 mL/min/1. 73m2 11/02/2024 6:43 AM EDT [facility] Comment:The estimated glomer [...] MD LAB BLOOD ORDERABLES Ambar eastman Result [facility] [address] [place] [address], [place] * DIRECTOR OF BUSINESS DEVELOPMENT PICC and Midline (11/01/2024 2:39 PM EDT) Narrative Bela Ceja RN - 11/01/2024 2:39 PM EDT Bela Ceja RN ? 11/01/2024 ??2:41 PM Midline catheter insertion Date/Time: 11/01/2024 2:39 PM Performed by: Nicolas Roberts RN ??Reason for Insertion: intravenous access and intravenous antibiotics ?Successful placement: yes ?? [facility] Protocol ??Patient identity confirmed: ??Name and MRN [...] lumen ??Catheter Size (ga): ??20 ??Lot #: ??[id number] ??Catheter Total Length (cm): ??10 ??Catheter External Length (cm): ??0 Post-Procedure Central Line Bundle ??Guidewire Removal Confirmed?: Yes ?All Ports Capped?: Yes ?Verification of Line Placement: ??Not applicable ??Dressing Applied: Transparent and Antimicrobial Post-Procedure Details ??Patient tolerance of procedure: ??Tolerated well, no immediate complications ??Significant events: ??None ??Plan: ??Midline ready for immediate use us Radha Elias MD IV THERAPY ORDERABLES [facility] al Result * (ABNORMAL) Tonalea & Lambda, Free w/Ratio (10/31/2024 6:11 AM EDT) [place]a Light Chain, Free, Serum 26.5(H) 3.3 - 19.4 mg/L 11/01/2024 10:00 AM EDT [employer] [facility] Lambda Light Chain, Free, Serum 28.1(H) 5.7 - 26.3 mg/L 11/01/2024 10:00 AM myTomorrowsT [employer] [facility] Tonalea/Lambda Light Chains Free With Ratio 0.94 0.26 - 1.65 11/01/2024 10:00 AM myTomorrowsT [employer] [facility] Comment: Free kappa/lambda ratio in serum of [...] LAB BLOOD ORDERABLES Ambar raiza Result [facility] [address] [facility] [address], [place] [address], [employer] [facility] [address] [facility] [address], [place] [address], * (ABNORMAL) Protein Electrophoresis w/Reflex to Immunofixation, Serum (10/31/2024 6:11 AM EDT) Protein, Total 5.0(L) 6.1 - 8.1 g/dL 11/01/2024 8:27 PM EDT [employer] [facility] Albumin 2.5(L) 3.8 - 4.8 g/dL 11/01/2024 8:27 PM EDT [employer] [facility] Alpha 1 Globulin 0.5(H) 0.2 - 0.3 g/dL 11/01/2024 8:27 PM EDT [employer] [facility] Alpha 2 Globulin 0.8 0.5 - 0.9 g/dL 11/01/2024 8:27 PM EDT [employer] [facility] Beta 1 Globulin 0.4 0.4 - 0.6 g/dL 11/01/2024 8:27 PM EDT [employer] [facility] Beta 2 Globulin 0.3 0.2 - 0.5 g/dL 11/01/2024 8:27 PM EDT [employer] [facility] Gamma Globulin 0.5(L) 0.8 - 1.7 g/dL 11/01/2024 8:27 PM EDT [employer] [facility] Interpretation See Comments 11/01/2024 8:27 PM EDT [employer] [facility] Comment: Selective protein loss pattern, suggestive of nephrotic syndrome Blood Structure of peripheral vein / Unknown Venipuncture / Unknown 10/31/2024 6:11 AM EDT 10/31/2024 6:38 AM EDT Narrative TIMOTHY CARMEN - 11/01/2024 8:27 PM EDT Timothy Received Date: Radha Elias MD LAB BLOOD ORDERABLES Ambar l Result [facility] [address] [facility] [address], [place] [address], [employer] [facility] [address], [place] [address], [place] [phone] * [place] Modified Barium Swallow (10/30/2024 10:26 [...] obtain the completed interpretation. ? Workstation ID: [id number] Narrative 10/31/2024 12:29 PM EDT EXAMINATION: Barium [...] present for the procedure. Resulting Agency Comment [id number] Procedure Note Julita Ayon MD - 10/31/2024 [...] possible to obtain thecompleted interpretation. Workstation ID: [id number] us Radha Elias MD IMG FLUOROSCOPY PROCEDURE [...] obtain the completed interpretation. ? Workstation ID: [id number] Narrative 10/31/2024 3:40 PM EDT COMPARISON: ??10/29/2023 FINDINGS AND Resulting Agency Comment [id number] Procedure Note Haseeb Art MD - 10/31/2024 [...] possible to obtain thecompleted interpretation. Workstation ID: [id number] Radha Elias MD IMG XR PROCEDURES Final R esult * Reticulocytes (10/29/2024 6:13 AM EDT) Pathologist [facility] Retic % 0.9 0.5 - 1.6 % 10/29/2024 6:25 AM EDT [facility] Retic # 0.03 0.02 - 0.08 10*6/uL 10/29/2024 6:25 AM EDT [facility] Blood Structure of peripheral vein / Unknown Venipuncture / Unknown 10/29/2024 6:13 AM EDT 10/29/2024 6:16 AM EDT Radha Chan DO LAB BLOOD ORDERABLES F inal Result Performing Organization Address City/[facility]/ZIP Co de Phone Number [facility] [address] [place] [address], [place] * Osmolality, Serum (10/29/2024 6:13 AM EDT) [facility] Osmolality 295 279 - 295 mOsm/kg 10/29/2024 6:43 AM EDT [facility] Blood Structure of peripheral vein / Unknown Venipuncture / Unknown 10/29/2024 6:13 AM EDT 10/29/2024 6:16 AM EDT Radha Elias MD LAB BLOOD ORDERABLES Ambar l Result [facility] [address] [place] [address], [place] * Sodium, Random Urine with Creatinine (10/29/2024 2:29 AM EDT) Pathologist [facility] Sodium, Urine <20 mmol/L 10/29/2024 3:24 AM EDT [facility] Creatinine, Urine 82 15 - 278 mg/dL 10/29/2024 3:24 AM EDT [facility] Sodium/Creatin ine, Urine Ratio 10/29/2024 3:24 AM EDT [facility] Comment:Unable to Calculate Urine Voided urine specimen / Unknown Non-Blood Collection / Unknown 10/29/2024 2:29 AM EDT 10/29/2024 2:37 AM EDT Radha Elias MD LAB URINE ORDERABLES Ambar l Result Performing Organization Address City/[facility]/ZIP Co de Phone Number [facility] [address] [place] [address], [place] * Osmolality, Urine (10/29/2024 2:29 AM EDT) Pathologist [facility] Osmolality, Ur 441 70 - 900 mOsm/kg 10/29/2024 2:54 AM EDT [facility] Urine Voided urine specimen / Unknown Non-Blood Collection / Unknown 10/29/2024 2:29 AM EDT 10/29/2024 2:37 AM EDT Radha Elias MD LAB URINE ORDERABLES Ambar l Result Performing Organization Address City/[facility]/ZIP Co de Phone Number [facility] [address] [place] [address], [place] * MRSA/S aureus PCR, Nasal (10/29/2024 1:16 AM EDT) MRSA PCR, Nasal NOT DETECTED NOT DETECTED 10/30/2024 2:16 PM EDT [employer] [facility] S. aureus PCR, Nasal NOT DETECTED NOT DETECTED 10/30/2024 2:16 PM EDT [employer] [facility] Swab Nasal structure / Unknown Non-Blood Collection / Unknown 10/29/2024 1:16 AM EDT 10/29/2024 1:21 AM EDT [facility] 10/30/2024 2:16 PM EDT [facility] Received Date:[id number] Radha Elias MD LAB BODY FLUIDS AND STOOL S ORDERABLES Final Result [facility]OTHY [facility]AR[facility]O [address] [facility] [address], [place] [address], [place] [phone] [facility] [employer] [facility] [address] [facility] [address], [place] [address], [place] [phone] * Lactic Acid, Plasma (10/28/2024 6:17 PM EDT) Lactic Acid 1.8 0.5 - 1.9 mmol/L 10/28/2024 7:06 PM EDT [facility] Comment: Sepsis Screening: [...] ORDERABLES Ambar l Result Performing Organization Address [facility] Co de Phone Number [facility] [address] [place] [phone], * (ABNORMAL) Lactic Acid, Plasma (10/28/2024 2:27 PM EDT) Lactic Acid 2.4(H) 0.5 - 1.9 mmol/L 10/28/2024 2:56 PM EDT [facility] Blood Structure of peripheral vein / Unknown Venipuncture / Unknown 10/28/2024 2:27 PM EDT 10/28/2024 2:32 PM EDT Galileo Vincent DO LAB BLOOD ORDERABLES Final Res ult Performing Organization Address City/[facility] Co de Phone Number [facility] [address] [place] [phone], * Clinician: Transfuse Red Blood Cells (10/28/2024 2:19 PM EDT) Galileo [facility] BLOOD TRANSFUSION ORDERABLES F inal Result * (ABNORMAL) Lactic Acid (w/Repeat if >2) (10/28/2024 11:14 AM EDT) Lactic Acid 2.1(H) 0.5 - 1.9 mmol/L 10/28/2024 11:41 AM EDT [facility] Blood Structure of peripheral vein / Unknown Venipuncture / Unknown 10/28/2024 11:14 AM EDT 10/28/2024 11:14 AM EDT [facility]o [facility] LAB BLOOD ORDERABLES Final Res ult [facility] [address] [place] [address], * (ABNORMAL) POCT I-STAT Lactate W/VBG, interfaced (10/28/2024 10:38 AM EDT) Only the most recent of2 resultswithin the time period is included. Sample Type, POCT Venous 10/28/2024 10:46 AM EDT [facility] Lactate, POCT 1.65 0.9 - 1.7 mmol/L 10/28/2024 10:46 AM EDT [facility] pH, POCT 7.39 7.31 - 7.41 pH 10/28/2024 10:46 AM EDT [facility] pCO2, POCT 28.5(L) 41 - 51 mm Hg 10/28/2024 10:46 AM EDT [facility] pO2, POCT 61(H) 35 - 40 mm Hg 10/28/2024 10:46 AM EDT [facility] Base Excess, POCT -8(L) 0 - 3 mmol/L 10/28/2024 10:46 AM EDT [facility] HCO3, POCT 17.2(L) 23 - 28 mmol/L 10/28/2024 10:46 AM EDT [facility], [facility] TCO2, POCT 18(L) 24 - 29 mmol/L 10/28/2024 10:46 AM EDT [facility] Saturated O2, POCT 91(H) 70 - 75 % 10/28/2024 10:46 AM EDT [facility] Trino's Test, POCT N/A 10/28/2024 10:46 AM EDT [facility] Blood 10/28/2024 10:3 8 AM EDT 10/28/2024 10:46 AM EDT Galileo [facility] LAB POCT ORDERABLES - DEVICE F inal Result [facility] [address] [place] [address], [place] * Blood Culture (10/28/2024 9:18 AM EDT) Only the most recent of2 resultswithin the time period is included. Culture No growth after 5 days 11/02/2024 3:14 PM EDT [employer] [facility] Blood Structure of peripheral vein / Unknown Venipuncture / Unknown 10/28/2024 9:18 AM EDT 10/28/2024 9:29 AM EDT Narrative [facility] - 11/02/2024 3:14 PM EDT [facility] Received Date: MICRO NUMBER: [id number] SPECIMEN QUALITY: Adequate SOURCE: BLOOD VENOUS, PERIPHERAL STATUS: FINAL COMMENT: Aerobic and anaerobic bottle received. [facility] LAB MICROBIOLOGY - GENERAL ORD ERABLES Final Result TIMOTHY TARBORO [address] [facility] [address], [place] [address], [place] [phone] [employer] [facility] [address] [facility] [address], [place] [address], [place] [phone] * Blood Bank: Prepare Red Blood Cells Transfusion indications: HCT<= 24% or Hgb <= 8 gm/dL and symptomatic; Irradiated?: No; Special requirements: Leukoreduced: 1 Units (10/28/2024 9:14 AM EDT) Product Code [id number] [facility] BLO OD BANK INFCE Unit Number [id number] [facility] B[facility] INFCE Unit ABO A MEM BLOOD BANK INFCE Unit RH NEG MEM BLOOD BANK INFCE Crossmatch Compatible MEM BLOO D BANK INFCE Dispense Status Presumed Transfuse MEM [facility]LOOD B[facility] INFCE Blood Expiration Date [id number] [facility] IN[facility] Blood Type Barcode 0600 MEM [facility]LOOD B[facility] INFCE Dispensed Volume 282 ML [facility]LO[facility] B[facility] INFCE Other 10/28/2024 9:14 AM EDT 10/28/2024 9:20 AM EDT Galileo Vincent DO BLOOD BANK PRODUCT ORDERABLES Final Result [facility] IN[facility] [address] [place] [address], [place] [phone] * (ABNORMAL) Iron Saturation (10/28/2024 9:00 AM EDT) Iron Saturation 1:12 PM EDT [facility] Comment:Unable to Calculate Iron <10(L) 30 - 160 ug/dL 10/28/2024 1:12 PM EDT [facility] Transferrin 306 200 - 360 mg/dL 10/28/2024 1:12 PM EDT [facility] Total Iron Binding Capacity 383 255 - 450 ug/dL 10/28/2024 1:12 PM EDT [facility] Blood Structure of peripheral vein / Unknown Venipuncture / Unknown 10/28/2024 9:00 AM EDT 10/28/2024 9:17 AM EDT us Radha Chan DO LAB BLOOD ORDERABLES F inal Result [facility] [address] [place] [address], [place] * (ABNORMAL) Manual Differential (10/28/2024 9:00 AM EDT) Neutrophil %, Manual 91 % 10/28/2024 9:57 AM EDT [facility] Band % 3 0 - 7 % 10/28/2024 9:57 AM EDT [facility] Lymphocyte %, Manual 2 % 10/28/2024 9:57 AM EDT [facility] Monocyte %, Manual 4 % 10/28/2024 9:57 AM EDT [facility] Eosinophil %, Manual 0 % 10/28/2024 9:57 AM EDT [facility] Basophil %, Manual 0 % 10/28/2024 9:57 AM EDT [facility] Total Neutrophil #, Manual 12.13(H) 1.50 - 7.80 10*3/uL 10/28/2024 9:57 AM EDT [facility] Bands #,Manual 0.39 10*3/uL 10/28/2024 9:57 AM EDT [facility] Total Lymph #, Manual 0.26(L) 0.85 - 3.90 10*3/uL 10/28/2024 9:57 AM EDT [facility] Monocyte #, Manual 0.52 0.20 - 0.95 10*3/uL 10/28/2024 9:57 AM EDT [facility] Eosinophil #, Manual 0.00(L) 0.02 - 0.50 10*3/uL 10/28/2024 9:57 AM EDT [facility] Basophil #, Manual 0.00 0.00 - 0.20 10*3/uL 10/28/2024 9:57 AM EDT [facility] Platelet Estimate Adequate Adequate 10/28/2024 9:57 AM EDT [facility] RBC Morphology Present(A) Normal, No clinically significant RBC morphology present (ICSH guidelines, 2015). 10/28/2024 9:57 AM EDT [facility] Microcytes 2+(A) Not Present 10/28/2024 9:57 AM EDT [facility] Total Cells Counted 115 10/28/2024 9:57 AM EDT [facility] Blood Structure of peripheral vein / Unknown Venipuncture / Unknown 10/28/2024 9:00 AM EDT 10/28/2024 9:17 AM EDT Galileo [employer] BLOOD ORDERABLES Final Res ult [facility] [address] [place] [address], [place] * Type and Screen (10/28/2024 9:00 AM EDT) ABO Blood Type A 10/28/2024 10:05 AM EDT [facility] IN[facility] RH Type Negative 10/28/2024 10:05 AM EDT [facility] Expiration Date/Time 2024-10-31 23:59 10/28/2024 10:05 AM EDT [facility] Antibody Screen Negative 10/28/2024 10:05 AM EDT [facility] Blood Structure of peripheral vein / Unknown Venipuncture / Unknown 10/28/2024 9:00 AM EDT 10/28/2024 9:20 AM EDT icix BLOOD BANK TEST ORDERABLES Edited Result - Final Performing Organization Address [facility] de Phone Number [facility] INFCE [address] [place] [address], * (ABNORMAL) Folate (10/28/2024 9:00 AM EDT) Folate 30.2(H) 4.8 - 24.2 ng/mL 10/28/2024 1:39 PM EDT [facility] Blood Structure of peripheral vein / Unknown Venipuncture / Unknown 10/28/2024 9:00 AM EDT 10/28/2024 9:17 AM EDT Radha Chan DO LAB BLOOD ORDERABLES F inal Result Performing Organization Address [facility] de Phone Number [facility] [address] [place] [address], [place] * Ferritin (10/28/2024 9:00 AM EDT) Pathologist [facility] Ferritin 66.8 11.0 - 306.0 ng/mL 10/28/2024 1:12 PM EDT [facility] Blood Structure of peripheral vein / Unknown Venipuncture / Unknown 10/28/2024 9:00 AM EDT 10/28/2024 9:17 AM EDT Radha Chan DO LAB BLOOD ORDERABLES F inal Result Performing Organization Address [facility] de Phone Number [facility] [address] [place] [address], [place] * Vitamin B12 (10/28/2024 9:00 AM EDT) Vitamin B12 613 232 - 1,245 pg/mL 10/28/2024 1:12 PM EDT [facility] Blood Structure of peripheral vein / Unknown Venipuncture / Unknown 10/28/2024 9:00 AM EDT 10/28/2024 9:17 AM EDT us Radha Chan DO LAB BLOOD ORDERABLES F inal Result [facility] [address] [place] [address], [place] * XR Chest Portable 1 View [...] obtain the completed interpretation. ? Workstation ID: [id number] Narrative 10/28/2024 5:57 AM EDT XR CHEST [...] no acute osseous abnormalities. Resulting Agency Comment [id number] Procedure Note Janiya Palmer MD - 10/28/2024 [...] possible to obtain thecompleted interpretation. Workstation ID: [id number] us Lester Wilde MD IMG XR PROCEDURES Final Res ult * COVID-19, Flu A/B & RSV RNA PCR, Symptomatic (10/28/2024 5:14 AM EDT) PCR, SARS CoV-2 RNA Not Detected Not Detected CEPHEID GENEXPERT 10/28/2024 6:11 AM EDT [facility] Comment:A Not Detected [...] Detected CEPHEID GENEXPERT 10/28/2024 6:11 AM EDT [facility] Comment:Negative results do not preclude infection and should not be used as the sole basis for diagnosis, treatment or other patient management decisions. Negative results must be combined with clinical observations, patient history, and/or epidemiological information. Flu B RNA PCR Not Detected Not Detected CEPHEID GENEXPERT 10/28/2024 6:11 AM EDT [facility] Comment:Negative results do not preclude infection and should not be used as the sole basis for diagnosis, treatment or other patient management decisions. Negative results must be combined with clinical observations, patient history, and/or epidemiological information. RSV RNA PCR Not Detected Not Detected CEPHEID GENEXPERT 10/28/2024 6:11 AM EDT [facility] Comment:Negative results do not preclude infection and should not be used as the sole basis for diagnosis, treatment or other patient management decisions. Negative results must be combined with clinical observations, patient history, and/or epidemiological information. Swab (Nares) Non-Blood Collection / Unknown 10/28/2024 5:14 AM EDT 10/28/2024 5:19 AM EDT Narrative [facility] - 10/28/2024 6:11 AM EDT This test was developed, validated and its performance characteristics determined by [facility] Clinical [facility]. This test has not been cleared or approved by the U.S. Food and Drug Administration (FDA). FDA Policy for Diagnostic Tests for Coronavirus Disease-2019 during the Public Health Emergency issued September 25, 2019, is followed. Lester Wilde MD LAB BODY FLUIDS AND STOOLS ORDERABLES Final Result Performing Organization Address [facility]/ZIP Co de Phone Number [facility] [address] [place] [address], [place] * Tejada Top, Urine (10/28/2024 2:47 AM EDT) Extra Tube Hold for add-ons. 10/28/2024 7:05 AM EDT [facility] Comment:Auto resulted. Urine Urine specimen collection, clean catch / Unknown Non-Blood Collection / Unknown 10/28/2024 2:47 AM EDT 10/28/2024 2:50 AM EDT Renard Hernandez MD LAB URINE ORDERABLES Final Res ult Performing Organization Address City/[facility]/ZIP Co de Phone Number [facility] [address] [place] [address], [place] * (ABNORMAL) Urinalysis W/Reflex to Microscopic & Culture (10/28/2024 2:47 AM EDT) Color, Urine Yellow Colorless, Light Yellow, Yellow, Dark Yellow 10/28/2024 3:24 AM EDT [facility] Clarity, Urine Cloudy(A) Clear 10/28/2024 3:24 AM [facility] Specific [place], Urine 1.024 <1.030 10/28/2024 3:24 AM [facility] pH, Urine 6.0 4.6 - 8.0 10/28/2024 3:24 AM [facility] Protein, Urine 1+(A) Negative 10/28/2024 3:24 AM [facility] Glucose, Urine Normal Normal 10/28/2024 3:24 AM [facility] Ketones, Urine Negative Negative 10/28/2024 3:24 AM [facility] Bilirubin, Urine Negative Negative 10/28/2024 3:24 AM [facility] Blood, Urine 1+(A) Negative 10/28/2024 3:24 AM [facility] Nitrite, Urine Negative Negative 10/28/2024 3:24 AM [facility] Urobilinogen, Urine Normal Normal 10/28/2024 3:24 AM [facility] Leukocyte Esterase, Urine 3+(A) Negative 10/28/2024 3:24 AM [facility] WBC, Urine >182(H) 0 - 2 /HPF 10/28/2024 3:24 AM [facility] WBC Clumps, Urine Few /HPF 10/28/2024 3:24 AM [facility] RBC, Urine 12(H) 0 - 2 /HPF 10/28/2024 3:24 AM [facility] Hyaline Casts, Urine 0 0 - 2 /LPF 10/28/2024 3:24 AM [facility] Squamous Epithelial Cells, Urine 2 /HPF 10/28/2024 3:24 AM [facility] Trans Epithelial Cells, Urine 1 /HPF 10/28/2024 3:24 AM EDT [facility] Bacteria, Urine Moderate(A) None /HPF /HPF 10/28/2024 3:24 AM EDT [facility] Urine Urine specimen collection, clean catch / Unknown Non-Blood Collection / Unknown 10/28/2024 2:47 AM EDT 10/28/2024 2:50 AM EDT us Renard Hernandez MD LAB URINE ORDERABLES Final Res ult [facility] [address] [place] [address], [place] * (ABNORMAL) Urine Culture, Routine (10/28/2024 2:47 AM EDT) Culture Results Updated 10/31/2024 5:55 AM EDT [employer] [facility] Culture Escherichia coli(A) 10/31/2024 5:55 AM EDT [employer] [facility] Comment:Greater than 100,000 CFU/mL of Escherichia coli Culture Klebsiella pneumoniae(A) 10/31/2024 5:55 AM EDT [employer] [facility] Comment:Greater than 100,000 CFU/mL of Klebsiella pneumoniae Urine Urine specimen collection, clean catch / Unknown Non-Blood Collection / Unknown 10/28/2024 2:47 AM EDT 10/28/2024 3:24 AM EDT [facility] 10/31/2024 5:55 AM EDT [employer] Received Date: MICRO NUMBER: [id number] SPECIMEN QUALITY: Adequate SOURCE: URINE CLEAN CATCH [...] - GEN ERAL ORDERABLES Final Result [facility] [address], [place] [address], [place] [phone] [employer] [facility] [address] [facility] [address], [place] [address], [place] [phone] * CT Abdomen Pelvis with Contrast (10/28/2024 [...] obtain the completed interpretation. ? Workstation ID: [id number] Up-to-date CT equipment and radiation dose reduction [...] of the osseous structures. Resulting Agency Comment [id number] Procedure Note Richard Newton MD - 10/28/2024 [...] possible to obtain thecompleted interpretation. Workstation ID: [id number] Up-to-date CT equipment and radiation dose reduction techniques wereemployed. CTDIvol: 18.7 mGy. DLP: 948 mGy-cm. Renard Hernandez MD [facility] CT PROCEDURES Final Result * XR Hip [...] obtain the completed interpretation. ? Workstation ID: [id number] Narrative 10/28/2024 4:17 AM EDT COMPARISONS: None. FINDINGS: Hip joint spaces are only mildly narrowed. ??Mild narrowing and degenerative change of the pubic symphysis. ??Mild sacroiliac degenerative change. ??Bones appear probably demineralized. ??No evidence of fracture, dislocation or lysis. ??Mild vascular calcification. Resulting Agency Comment [id number] Procedure Note Sid Valenzuela MD - 10/28/2024 [...] possible to obtain thecompleted interpretation. Workstation ID: [id number] Renard Hernandez MD [facility] XR PROCEDURES Final Result * Tejada Top (10/28/2024 1:02 AM EDT) Pathologist [facility] Extra Tube Hold for add-ons. 10/28/2024 5:05 AM EDT [facility] Comment:Auto resulted. Blood Structure of peripheral vein / Unknown 10/28/2024 1:02 AM EDT 10/28/2024 1:02 AM EDT Renard Hernandez MD LAB BLOOD ORDERABLES Final Res ult [facility] [address] [place] [address], [place] * Lavender Top (10/28/2024 1:02 AM EDT) Extra Tube Hold for add-ons. 10/28/2024 5:05 AM EDT [facility] Comment:Auto resulted. Blood Structure of peripheral vein / Unknown 10/28/2024 1:02 AM EDT 10/28/2024 1:02 AM EDT Renard Hernandez MD LAB BLOOD ORDERABLES Final Res ult Performing Organization Address [facility] Co de Phone Number [facility] [address] [place] [address], [place] * Magnesium (10/28/2024 12:58 AM EDT) MG 1.8 1.6 - 2.4 mg/dL 10/28/2024 1:35 AM EDT [facility] Blood Structure of peripheral vein / Unknown Venipuncture / Unknown 10/28/2024 12:58 AM EDT 10/28/2024 1:01 AM EDT Renard Hernandez MD LAB BLOOD ORDERABLES Final Res ult Performing Organization Address City/[facility]/ZIP Co de Phone Number [facility] [address] [place] [address], [place] * Lipase (10/28/2024 12:58 AM EDT) Lipase 28 13 - 60 U/L 10/28/2024 1:35 AM EDT [facility] Blood Structure of peripheral vein / Unknown Venipuncture / Unknown 10/28/2024 12:58 AM EDT 10/28/2024 1:01 AM EDT us Renard Hernandez MD LAB BLOOD ORDERABLES Final Res ult [facility] [address] [place] [address], * (ABNORMAL) CMP - Comprehensive Metabolic Panel (10/28/2024 12:58 AM EDT) NA 128(L) 135 - 145 mmol/L 10/28/2024 1:35 AM EDT [facility] K 4.7 3.5 - 5.3 mmol/L 10/28/2024 1:35 AM EDT [facility] Cl 96(L) 98 - 107 mmol/L 10/28/2024 1:35 AM EDT [facility] CO2 17(L) 22 - 32 mmol/L 10/28/2024 1:35 AM EDT [facility] Anion Gap 15 5 - 15 10/28/2024 1:35 AM EDT [facility] Glucose 160(H) 65 - 99 mg/dL 10/28/2024 1:35 AM EDT [facility] Creatinine 2.23(H) 0.50 - 1.20 mg/dL 10/28/2024 1:35 AM EDT [facility] Calcium 9.5 8.6 - 10.5 mg/dL 10/28/2024 1:35 AM EDT [facility] Total Protein 6.6 6.0 - 8.0 g/dL 10/28/2024 1:35 AM [facility] Albumin 3.5 3.5 - 5.2 g/dL 10/28/2024 1:35 AM [facility] Bilirubin, Total 1.2 0.2 - 1.2 mg/dL 10/28/2024 1:35 AM [facility] Alkaline Phosphatase 94 35 - 129 U/L 10/28/2024 1:35 AM [facility] AST 37 10 - 40 U/L 10/28/2024 1:35 AM [facility] ALT 9(L) 10 - 40 U/L 10/28/2024 1:35 AM [facility] BUN 67(H) 7 - 23 mg/dL 10/28/2024 1:35 AM [facility] eGFR 22(L) >=60 mL/min/1 .73m2 10/28/2024 1:35 AM [facility] Comment:The estimated glomer ular [...] 2.1 - 4.2 g/dL 10/28/2024 1:35 AM [facility] A/G Ratio 1.1(L) 1.5 - 3.0 10/28/2024 1:35 AM [facility] Blood Structure of peripheral vein / Unknown Venipuncture / Unknown 10/28/2024 12:58 AM EDT 10/28/2024 1:01 AM EDT us eRnard Hernandez MD LAB BLOOD ORDERABLES Final Res ult [facility] [address] [place] [address], [place] * Urinalysis, Outside Lab (09/02/2024 9:20 AM EST) us Christen Lopes MD LAB URINE ORDERABLES Final Re sult * LAB - SCANNED (08/29/2024) us Onbase Scan [facility] LAB HISTORICAL RESULTS Final Result from Last 3 Months Insurance [employer] MEDICARE Advance Directives Documents on File Type Date Recorded Patient Desk Pens Assembler Expl anation Health Care Proxy 10/17/2024 7:28 [...] Communication Martita Pope Daughter Health Care Agent [email or web address] Care Teams Shank Taper Relationship Specialty Start Date End Date Andree Lindquist PCP - General Family Medicine 03/26/23
--- OUTSIDE RECORDS SUMMARY | 2024-11-20 11:20 | XMS_ITS | Encounter Summary ---
[facility] Organization [facility] Address [address] [place] [address] Care Team Providers Care Subacute Nurse Name Role Phone Eva Azar MD Primary Care Provider Meghan Paredes MD Primary Care Provider Beatrice Garvey MD Unavailable [facility], Pcp Primary Care Provider Meghan Chacko MD Primary Care Provider Andree Stallworth MD Primary Care Provider Jaenne barcenas Encounter Details Date Type Department Care Team Description 04/01/2012 Managing Cognitive Engineer Report Medical Records [address] [place] [address] Ashok Forbes MD Social History Tobacco Use [...] on filedocumented in this encounter Care Teams Subacute Nurse Relationship Specialty Start Date End Date Eva Azar MD PCP - General 04/03/10 04/07/12 Meghan Hicks MD PCP - General Internal Medicine 04/08/12 01/15/22 [facility], [facility] PCP - General Internal Medicine 01/16/22 03/05/22 Meghan Hicks MD PCP - General Internal Medicine 03/06/22 03/18/22 Andree Gonzalez MD PCP - General Internal Medicine 03/19/22 Beatrice Holloway MD Specialist Cardiology 07/31/21 documented as of this encounter
--- OUTSIDE RECORDS SUMMARY | 2024-11-20 11:20 | XMS_ITS | Encounter Summary ---
Author Organization [facility] Address [address] [place] [address] Care Team Providers Care Lye Boiler Name Role Phone Meghan Hicks MD Primary Care Provider Beatrice Garvey MD Unavailable [facility], Pcp Primary Care Provider Unavailbrown e Meghan Hicks MD Primary Care Provider Andree Stallworth MD Primary Care Provider Unavailnathaly barcenas Encounter Details Date Type Department Care Team Description 12/27/2013 Plasterer Maintenance Report Medical Records [address] [place] [id number] Abstract, Provider Social History Tobacco Use Types [...] on filedocumented in this encounter Care Teams Lye Boiler Relationship Specialty Start Date End Date Meghan Hicks MD PCP - General Internal Medicine 04/08/12 01/15/22 [facility], Pcp PCP - General Internal Medicine 01/16/22 03/05/22 Meghan Hicks MD PCP - General Internal Medicine 03/06/22 03/18/22 Andree Gonzalez MD PCP - General Internal Medicine 03/19/22 Beatrice Holloway MD Specialist Cardiology 07/31/21 documented as of this encounter
--- OUTSIDE RECORDS SUMMARY | 2024-11-20 11:20 | XMS_ITS | Encounter Summary ---
Author Organization [facility] Address [address] [place] [address] Care Team Providers Care Single Ending Machine Operator Name Role Phone Meghan Hicks MD Primary Care Provider Beatrice Garvey MD Unavailable [facility], Pcp Primary Care Provider UnavailMeghan Jones MD Primary Care Provider Andree Stallworth MD Primary Care Provider Unavailnathaly barcenas Encounter Details Date Type Department Care Team Description 09/19/2021 Pt. Non Urgent Medic al Question Medicine/Pediatrics - [address] [phone] Meghan Hicks MD Social History Tobacco Use [...] encounter Miscellaneous Notes * Telephone Encounter - Arlin Mccarthy L.P.N. - 09/19/2021 3:58 PM ESTFrom: Francine Pope To: Bela Hicks Sent: 09/19/2021 3:54 PM EST Subject: Vitamin D I have changed my pharmacy to [facility] [address] [facility]. [phone].My vitamin D prescription is at [facility] and we can't seem to get it transferred all other prescriptionshave been. Would Dr. Hicks send out a new prescription to my new pharmacy. Thank you Francine Pope 1945 documented in this encounter Plan of Treatment Not on file documented as of this encounter Visit Diagnoses Not on filedocumented in this encounter Care Teams Single Ending Machine Operator Relationship Specialty Start Date End Date Meghan Hicks MD PCP - General Internal Medicine 04/08/12 01/15/22 [facility] PCP - General Internal Medicine 01/16/22 03/05/22 Meghan Hicks MD PCP - General Internal Medicine 03/06/22 03/18/22 Andree Gonzalez MD PCP - General Internal Medicine 03/19/22 Beatrice Holloway MD Specialist Cardiology 07/31/21 documented as of this encounter
--- OUTSIDE RECORDS SUMMARY | 2024-11-20 11:20 | XMS_ITS | Clinical Summary ---
Author Organization [facility] Address [address] [place] [address] Care Team Providers Care Container Crane Operator Name Role Phone CandelarioAndree andersen Primary Care Provider [phone] Allergies Active Allergy Reactions Criticality Noted Date [...] daily see TAVR No statin present on MOLD REPAIRER med rec on admission, although noted in EMR that patient should be taking atorvastatin 40 mg, unclear if this was discontinued MOLD REPAIRER - consider re-initiating statin while admitted; plan to discuss with family Assessment & Plan (10/30/2024 3:03 PM EDT): Home meds: asa 81 mg daily see TAVR No statin present on MOLD REPAIRER med rec on admission, although noted in EMR that patient should be taking atorvastatin 40 mg, unclear if this was discontinued MOLD REPAIRER - consider re-initiating statin while admitted Assessment & Plan (10/30/2024 11:55 AM EDT): Home meds: asa 81 mg daily see TAVR No statin present on MOLD REPAIRER med rec on admission, although noted in EMR that patient should be taking atorvastatin 40 mg, unclear if this was discontinued MOLD REPAIRER - consider re-initiating statin while admitted Impaired mobility and ADLs 10/30/2024 Assessment & Plan (11/01/2024 7:12 AM EDT): PT following, rec dc to inpt facility Assessment & Plan (10/30/2024 3:03 PM EDT): PT following, rec dc to inpt facility Dysphagia 10/29/2024 Assessment & Plan (11/01/2024 7:12 AM EDT): Patient with sensation of something stuck in her throat. PRESS MAINTAINER following, most recent eval 10/30: Recommend a level 0/thin liquid, level 7/easy to chew solid diet. Recommend intermittent supervision to cue patient for recommended swallow strategies: upright 90 deg during meals, small bite/sips, SINGLE sips at a time. Assessment & Plan (10/30/2024 3:03 PM EDT): Patient with sensation of something stuck in her throat. PRESS MAINTAINER following, most recent eval 10/30: Recommend a level 0/thin liquid, level 7/easy to chew solid diet. Recommend intermittent supervision to cue patient for recommended swallow strategies: upright 90 deg during meals, small bite/sips, SINGLE sips at a time. Assessment & Plan (10/30/2024 11:55 AM EDT): Patient with sensation of something stuck in her throat. PRESS MAINTAINER following, most recent eval 10/30: Recommend a level 0/thin liquid, level 7/easy to chew solid diet. Recommend intermittent supervision to cue patient for recommended swallow strategies: upright 90 deg during meals, small bite/sips, SINGLE sips at a time. Assessment & Plan (10/29/2024 1:57 PM EDT): Patient with sensation of something stuck in her throat. PRESS MAINTAINER on 420 clearing patient for a level 6 solids and level 0 liquid. Plan for MBS per PRESS MAINTAINER Continue level 6 solids and level 0 [...] to address severe anemia. -No indication for FIRST LEVELER at this time; given the patient's underlying comorbidities, would discuss GOC with family before committing to FIRST LEVELER should a potential need develop. Acute renal [...] Department Care Team Description 11/20/2024 myChart Message [facility] [address] [place] [address] Ingredient Scaler Helper: Christen Dempsey MD Pimentel [facility] 10/27/2024 11:55 PM EDT - 11/02/2024 1:35 PM EDT Hospital Encounter [facility] [address] [place] [address] Renard Hernandez MD Fidrocki, James E., MD Feibish, Gordon, DO MacGinnis, Christine O., Radha Lord MD Hyponatremia (Primary Dx); Anemia, unspecified type; AUGUSTINE (acute kidney injury) (HCC); Confusion; Dysphagia, unspecified type Discharge Disposition: Inpatient Rehab Facility (IRF) (62) 10/27/2024 Patient Self-Triage [facility] Medicine [address] [place] [address] Urgent Care, Amb PhysicianMD 10/17/2024 8:40 AM EDT Anesthesia Event [facility] [address] [place] [address] Victorino Cox MD Ackroyd, Luke J. 10/17/2024 8:20 AM EDT - 10/17/2024 9:10 AM EDT Surgery [facility] [address] [place] [address] Christen Lopes MD CYSTOURETHROSCOPY WITH CHEMODENERVATION Botox 100 units; WITH FULGERATION . [28541 (CPT??)] 10/17/2024 6:33 AM EDT - 10/17/2024 10:56 AM EDT Hospital Encounter [facility] [address] [place] [address] Christen Lopes MD Discharge Disposition: Home or Self Care w/ Planned Readmission (81) 10/17/2024 Telephone [facility] [address] [address] Ingredient Scaler Helper: Christen Dempsey MD 10/03/2024 11:30 AM EDT Pre-Admission Testing [facility] [address] [address] Meka Dover NP Urge incontinence (Primary Dx); Pre-op evaluation; Primary hypertension 10/03/2024 Telephone [facility] [address] [address] Ingredient Scaler Helper: Christen Dempsey MD 09/05/2024 myChart Message [facility] [address] [address] Ingredient Scaler Helper: Paulette Sierra, [facility] Provider Surgery Wednesday10/17/2024 09/04/2024 Orders Only [facility] [address] [place] [phone] Ingredient Scaler Helper: Christen Dempsey MD 08/31/2024 Telephone [facility] [address] [address] Ingredient Scaler Helper: Christen Dempsey MD Update on pt's. symptoms 08/30/2024 Orders Only [facility] [address] [place] [phone] Ingredient Scaler Helper: Christen Dempsey MD Acute cystitis with hematuria (Primary Dx) 08/25/2024 1:00 PM EST Pre-Admission Testing [facility] [address] [address] Urge incontinence (Primary Dx); Preoperative testing 08/23/2024 Telephone [facility] [address] [place] [phone] Ingredient Scaler Helper: Christen Dempsey MD from Last 3 Months Family History Medical History Relation Name Comments COPD Father Throat cancer Father Colon cancer Mother Heart disease Mother [place] Relation Name Status Comments Father Mother Social History Tobacco Use Types Packs/Day Years Used Date Smoking Tobacco: Former Cigarettes 1 45 1 954 - 1998 Smokeless Tobacco: Never Tobacco Cessation:Counseling Given: Not Answered Alcohol Use Standard Drinks/Week Comments Not Currently 0 (1 standard drink = 0.6 oz pur e alcohol) [facility] Utilities Answer Date Recorded In the [...] Info) Description 12/07/2024 8:15 AM EDT Follow-Up [facility] [address] [place] [address] Ingredient Scaler Helper: Christen Dempsey MD [address] [place] [address] 06/20/2025 10:45 AM EST Follow-Up [facility] [address] [place] [address] Ingredient Scaler Helper: Christen Dempsey MD [address] [place] [address] Health Maintenance Due Date Last Done Comments [...] Discontinued Sigmoidoscopy Discontinued Procedures * Due to [place] state law, this organization might not be sharing negative HIV tests. Procedure Name Priority Date/Time Associated Diagnosis Comments POCT GLUCOSE Routine 11/02/2024 12:12 PM EDT POCT GLUCOSE Routine 11/02/2024 8:34 AM EDT BASIC METABOLIC PANEL Routine 11/02/2024 6:01 AM EDT CBC AUTO DIFFERENTIAL Routine 11/02/2024 6:01 AM EDT POCT GLUCOSE Routine 11/01/2024 8:36 PM EDT POCT GLUCOSE Routine 11/01/2024 5:37 PM EDT [facility] IV AD SETTER PICC Routine 2:39 PM EDT POCT GLUCOSE [...] AUTO DIFFERENTIAL STAT 10/28/2024 12:58 AM EDT SC CYSTOURETHROSCOPY INJ CHEMODENERVATION BLADDER 10/17/2024 8:25 AM EDT Urge incontinence Special Needs BOTOX POCT GLUCOSE Routine 10/17/2024 7:18 AM EDT URINALYSIS, OUTSIDE LAB Routine 09/02/19 9:20 AM EST LAB - SCANNED 08/29/2024 from Last 3 Months Results * Due to [place] state law, this organization might not be sharing negative HIV tests. * (ABNORMAL) POCT Glucose, interfaced (11/02/2024 12:12 PM EDT) Only the most recent of21 resultswithin the time period is included. [facility] Glucose, POCT 237(H) 70 - 99 mg/dL 11/02/2024 12:23 PM EDT [facility] Comment: The micro paleontologist has not determined the efficacy of this test in Critically ill patients. ??[facility] defines Critically ill patients for the purpose [...] POCT ORDERABLES - DEV ICE Final Result [facility] [address] [place] [address], [place] * (ABNORMAL) CBC Auto Differential (11/02/2024 6:01 AM EDT) Only the most recent of9 resultswithin the time period is included. WBC 10.6 3.8 - 10.8 10*3/uL 11/02/2024 6:26 AM EDT [facility] RBC 3.33(L) 3.80 - 5.10 10*6/uL 11/02/2024 6:26 AM EDT [facility] Hemoglobin 7.4(L) 11.7 - 15.5 g/dL 11/02/2024 6:26 AM T [facility] Hematocrit 23.7(L) 35.0 - 45.0 % 11/02/2024 6:26 AM T [facility] MCV 71.2(L) 80.0 - 100.0 fL 11/02/2024 6:26 AM EDT [facility] MCH 22.2(L) 27.0 - 33.0 pg 11/02/2024 6:26 AM EDT [facility] MCHC 31.2(L) 32.0 - 36.0 g/dL 11/02/2024 6:26 AM EDT [facility] RDW 18.0(H) 11.0 - 15.0 % 11/02/2024 6:26 AM EDT [facility] Platelets 363 140 - 400 10*3/uL 11/02/2024 6:26 AM EDT [facility] MPV 9.3 7.5 - 12.5 fL 11/02/2024 6:26 AM T [facility] Neutrophil % 73.4 % 11/02/2024 6:26 AM EDT [facility] Immature Grans % 2.0(H) 0.0 - 0.9 % 11/02/2024 6:26 AM [facility] Lymphocyte % 10.7 % 11/02/2024 6:26 AM [facility] Monocyte % 9.0 % 11/02/2024 6:26 AM [facility] Eosinophil % 4.8 % 11/02/2024 6:26 AM T [facility] Basophil % 0.1 % 11/02/2024 6:26 AM [facility] Neutrophil # 7.76 1.50 - 7.80 10*3/uL 11/02/2024 6:26 AM [facility] Immature Grans # 0.21(H) <=0.03 10*3/uL 11/02/2024 6:26 AM [facility] Lymphocyte # 1.10 0.85 - 3.90 10*3/uL 11/02/2024 6:26 AM [facility] Monocyte # 1.00(H) 0.20 - 0.95 10*3/uL 11/02/2024 6:26 AM [facility] Eosinophil # 0.50 0.02 - 0.50 10*3/uL 11/02/2024 6:26 AM [facility] Basophil # <0.03 0.00 - 0.20 10*3/uL 11/02/2024 6:26 AM [facility] nRBC % 0.0 /100 WBCs 11/02/2024 6:26 AM [facility] nRBC # <0.01 <0.01 10*3/uL 11/02/2024 6:26 AM [facility] Blood Structure of peripheral vein / Unknown Venipuncture / Unknown 11/02/2024 6:01 AM EDT 11/02/2024 6:12 AM EDT us Radha Elias MD LAB BLOOD ORDERABLES Ambar eastman Result [facility] [address] [place] [address], * (ABNORMAL) Basic metabolic panel (11/02/2024 6:01 AM EDT) Only the most recent of8 resultswithin the time period is included. NA 137 135 - 145 mmol/L 11/02/2024 6:43 AM EDT [facility] K 4.1 3.5 - 5.3 mmol/L 11/02/2024 6:43 AM EDT [facility] Cl 101 98 - 107 mmol/L 11/02/2024 6:43 AM EDT [facility] CO2 25 22 - 32 mmol/L 11/02/2024 6:43 AM EDT [facility] BUN 29(H) 7 - 23 mg/dL 11/02/2024 6:43 AM EDT [facility] Creatinine 0.94 0.50 - 1.20 mg/dL 11/02/2024 6:43 AM EDT [facility] Glucose 138(H) 65 - 99 mg/dL 11/02/2024 6:43 AM EDT [facility] Calcium 8.9 8.6 - 10.5 mg/dL 11/02/2024 6:43 AM EDT [facility] Anion Gap 11 5 - 15 11/02/2024 6:43 AM EDT [facility] eGFR 63 >=60 mL/min/1. 73m2 11/02/2024 6:43 AM EDT [facility] Comment:The estimated glomer ular [...] ORDERABLES Ambar eastman Result Performing Organization Address City/State/[facility] Co de Phone Number [facility] [address] [place] [address], * INSTALLATION TECH PICC and Midline (11/01/2024 2:39 PM EDT) Narrative Bela Ceja RN - 11/01/2024 2:39 PM EDT Bela Ceja RN ? 11/01/2024 ??2:41 PM Midline catheter insertion Date/Time: 11/01/2024 2:39 PM Performed by: Nicolas Roberts RN ??Reason for Insertion: intravenous access and intravenous antibiotics ?Successful placement: yes ?? [place] Protocol ??Patient identity confirmed: ??Name and MRN [...] lumen ??Catheter Size (ga): ??20 ??Lot #: ??[id number] ??Catheter Total Length (cm): ??10 ??Catheter External [...] THERAPY ORDERABLES Fin al Result * (ABNORMAL) Helotes & Lambda, Free w/Ratio (10/31/2024 6:11 AM EDT) Pathologist [facility] Helotes Light Chain, Free, Serum 26.5(H) 3.3 - 19.4 mg/L 11/01/2024 10:00 AM EDT [employer] [facility] Lambda Light Chain, Free, Serum 28.1(H) 5.7 - 26.3 mg/L 11/01/2024 10:00 AM EDT [employer] [facility] Helotes/Lambda Light Chains Free With Ratio 0.94 0.26 - 1.65 11/01/2024 10:00 AM EDT [employer] [facility] Comment: Free kappa/lambda ratio in [...] 6:11 AM EDT 10/31/2024 6:38 AM EDT [facility] - 11/01/2024 10:00 AM EDT [facility] Received Date: Radha Elias MD LAB BLOOD ORDERABLES Ambar l Result [facility]OT[facility] CARMEN [address] [facility] 3rd Floor, [place] [address], [employer] [facility] [address], [place] [address], [place] [phone] * (ABNORMAL) Protein Electrophoresis w/Reflex to Immunofixation, Serum (10/31/2024 6:11 AM EDT) Protein, Total 5.0(L) 6.1 - 8.1 g/dL 11/01/2024 8:27 PM EDT [employer] [facility] Albumin 2.5(L) 3.8 - 4.8 g/dL 11/01/2024 8:27 PM EDT [employer] [facility] Alpha 1 Globulin 0.5(H) 0.2 - 0.3 g/dL 11/01/2024 8:27 PM EDT [employer] [facility] Alpha 2 Globulin 0.8 0.5 - 0.9 g/dL 11/01/2024 8:27 PM EDT [employer] [facility] Beta 1 Globulin 0.4 0.4 - 0.6 g/dL 11/01/2024 8:27 PM EDT [employer] [facility] Beta 2 Globulin 0.3 0.2 - 0.5 g/dL 11/01/2024 8:27 PM EDT [employer] [facility] Gamma Globulin 0.5(L) 0.8 - 1.7 g/dL 11/01/2024 8:27 PM EDT [employer] [facility] Interpretation See Comments 11/01/2024 8:27 PM EDT [employer] [facility] Comment: Selective protein loss pattern, suggestive of nephrotic syndrome Blood Structure of peripheral vein / Unknown Venipuncture / Unknown 10/31/2024 6:11 AM EDT 10/31/2024 6:38 AM EDT Narrative [facility] - 11/01/2024 8:27 PM EDT [facility] Received Date: Radha Elias MD LAB BLOOD ORDERABLES Ambar l Result [facility] CAR[facility] [address] [facility] [address]rd Floor, [address] [facility] [place] [place] [address], [place] [phone] [employer] [facility] [address], [place] [address], [place] [phone] * [place] Modified Barium Swallow (10/30/2024 10:26 [...] obtain the completed interpretation. ? Workstation ID: [id number] Narrative 10/31/2024 12:29 PM EDT EXAMINATION: Barium [...] present for the procedure. Resulting Agency Comment [id number] Procedure Note Julita Ayon MD - 10/31/2024 [...] possible to obtain thecompleted interpretation. Workstation ID: [id number] Radha Elias MD [facility] FLUOROSCOPY PROCEDURE S Final Result * XR [...] obtain the completed interpretation. ? Workstation ID: [id number] Narrative 10/31/2024 3:40 PM EDT COMPARISON: ??10/29/2023 FINDINGS AND Resulting Agency Comment [id number] Procedure Note Haseeb Art MD - 10/31/2024 [...] possible to obtain thecompleted interpretation. Workstation ID: [id number] Radha Elias MD [facility] XR PROCEDURES Final R esult * Reticulocytes (10/29/2024 6:13 AM EDT) Retic % 0.9 0.5 - 1.6 % 10/29/2024 6:25 AM EDT [facility] Retic # 0.03 0.02 - 0.08 10*6/uL 10/29/2024 6:25 AM EDT [facility] Blood Structure of peripheral vein / Unknown Venipuncture / Unknown 10/29/2024 6:13 AM EDT 10/29/2024 6:16 AM EDT Radha Chan DO LAB BLOOD ORDERABLES F inal Result Performing Organization Address City/[facility]/ZIP Co de Phone Number [facility] [address] [place] [phone], [place] * Osmolality, Serum (10/29/2024 6:13 AM EDT) Osmolality 295 279 - 295 mOsm/kg 10/29/2024 6:43 AM EDT [facility] Blood Structure of peripheral vein / Unknown Venipuncture / Unknown 10/29/2024 6:13 AM EDT 10/29/2024 6:16 AM EDT aRdha Elias MD LAB BLOOD ORDERABLES Ambar l Result Performing Organization Address [facility] Co de Phone Number [facility] [address] [place] [address], [place] * Sodium, Random Urine with Creatinine (10/29/2024 2:29 AM EDT) Sodium, Urine <20 mmol/L 10/29/2024 3:24 AM EDT [facility] Creatinine, Urine 82 15 - 278 mg/dL 10/29/2024 3:24 AM EDT [facility] Sodium/Creatin ine, Urine Ratio 10/29/2024 3:24 AM EDT [facility] Comment:Unable to Calculate Urine Voided urine specimen / Unknown Non-Blood Collection / Unknown 10/29/2024 2:29 AM EDT 10/29/2024 2:37 AM EDT Radha Elias MD LAB URINE ORDERABLES Ambar l Result [facility] [address] [place] [id number], [place] * Osmolality, Urine (10/29/2024 2:29 AM EDT) Pathologist [facility] Osmolality, Ur 441 70 - 900 mOsm/kg 10/29/2024 2:54 AM EDT [facility] Urine Voided urine specimen / Unknown Non-Blood Collection / Unknown 10/29/2024 2:29 AM EDT 10/29/2024 2:37 AM EDT Radha Elias MD LAB URINE ORDERABLES Ambar l Result Performing Organization Address [facility] Co de Phone Number [facility] [address] [place] [phone], [place] * MRSA/S aureus PCR, Nasal (10/29/2024 1:16 AM EDT) [facility] MRSA PCR, Nasal NOT DETECTED NOT DETECTED 10/30/2024 2:16 PM EDT [employer] [facility] S. aureus PCR, Nasal NOT DETECTED NOT DETECTED 10/30/2024 2:16 PM EDT [employer] [facility] Swab Nasal structure / Unknown Non-Blood Collection / Unknown 10/29/2024 1:16 AM EDT 10/29/2024 1:21 AM EDT Narrative [facility] - 10/30/2024 2:16 PM EDT [facility] Received Date:[id number] Radha Elias MD LAB BODY FLUIDS AND STOOL S ORDERABLES Final Result [facility] [address] [facility] 3rd Floor, [place] [address], [place] [phone] [employer] [address], [place] [address], [place] [phone] * Lactic Acid, Plasma (10/28/2024 6:17 PM EDT) Lactic Acid 1.8 0.5 - 1.9 mmol/L 10/28/2024 7:06 PM EDT [facility] Comment: Sepsis Screening: Initial [...] ORDERABLES Ambar l Result Performing Organization Address City/[facility]/ZIP Co de Phone Number [facility] [address] [place] [address], [place] * (ABNORMAL) Lactic Acid, Plasma (10/28/2024 2:27 PM EDT) Lactic Acid 2.4(H) 0.5 - 1.9 mmol/L 10/28/2024 2:56 PM EDT [facility] Blood Structure of peripheral vein / Unknown Venipuncture / Unknown 10/28/2024 2:27 PM EDT 10/28/2024 2:32 PM EDT us Galileo Vincent DO LAB BLOOD ORDERABLES Final Res ult Performing Organization Address City/[facility]/ZIP Co de Phone Number [facility] [address] [place] [phone], * Clinician: Transfuse Red Blood Cells (10/28/2024 2:19 PM EDT) Galileo Vincent DO BLOOD TRANSFUSION ORDERABLES F inal Result * (ABNORMAL) Lactic Acid (w/Repeat if >2) (10/28/2024 11:14 AM EDT) Lactic Acid 2.1(H) 0.5 - 1.9 mmol/L 10/28/2024 11:41 AM EDT [facility] Blood Structure of peripheral vein / Unknown Venipuncture / Unknown 10/28/2024 11:14 AM EDT 10/28/2024 11:14 AM EDT Galileo Vincent LAB BLOOD ORDERABLES Final Res ult [facility] [address] [place] [address], [place] * (ABNORMAL) POCT I-STAT Lactate W/VBG, interfaced (10/28/2024 10:38 AM EDT) Only the most recent of2 resultswithin the time period is included. Sample Type, POCT Venous 10/28/2024 10:46 AM EDT [facility] Lactate, POCT 1.65 0.9 - 1.7 mmol/L 10/28/2024 10:46 AM EDT [facility] pH, POCT 7.39 7.31 - 7.41 pH 10/28/2024 10:46 AM EDT [facility] pCO2, POCT 28.5(L) 41 - 51 mm Hg 10/28/2024 10:46 AM EDT [facility] pO2, POCT 61(H) 35 - 40 mm Hg 10/28/2024 10:46 AM EDT [facility] Base Excess, POCT -8(L) 0 - 3 mmol/L 10/28/2024 10:46 AM EDT [facility] HCO3, POCT 17.2(L) 23 - 28 mmol/L 10/28/2024 10:46 AM EDT [facility] TCO2, POCT 18(L) 24 - 29 mmol/L 10/28/2024 10:46 AM EDT [facility] Saturated O2, POCT 91(H) 70 - 75 % 10/28/2024 10:46 AM EDT [facility] Trino's Test, POCT N/A 10/28/2024 10:46 AM EDT [facility] Blood 10/28/2024 10:3 8 AM EDT 10/28/2024 10:46 AM EDT [facility] POCT ORDERABLES - DEVICE F inal Result [facility] [address] [place] [address], * Blood Culture (10/28/2024 9:18 AM EDT) Only the most recent of2 resultswithin the time period is included. Culture No growth after 5 days 11/02/2024 3:14 PM EDT [employer] Blood Structure of peripheral vein / Unknown Venipuncture / Unknown 10/28/2024 9:18 AM EDT 10/28/2024 9:29 AM EDT Narrative [facility]AW - 11/02/2024 3:14 PM EDT [facility] Received Date: MICRO NUMBER: [id number] SPECIMEN QUALITY: Adequate SOURCE: BLOOD VENOUS, PERIPHERAL STATUS: FINAL COMMENT: Aerobic and anaerobic bottle received. [facility] MICROBIOLOGY - GENERAL ORD ERABLES Final Result TIMOTHY CHERAW [address] [facility] 3rd Floor, [place] [address], [place] [phone] [employer] [facility] [address] [facility] 3rd Floor, [place] [address], [place] [phone] * Blood Bank: Prepare Red Blood Cells Transfusion indications: HCT<= 24% or Hgb <= 8 gm/dL and symptomatic; Irradiated?: No; Special requirements: Leukoreduced: 1 Units (10/28/2024 9:14 AM EDT) Product Code [id number] MEM BLO OD BANK INFCE Unit Number [id number] ID M BLOOD BANK INFCE Unit ABO A MEM BLOOD BANK INFCE Unit RH NEG MEM BLOOD BANK INFCE Crossmatch Compatible MEM BLOO D BANK INFCE Dispense Status Presumed Transfuse MEM BLOOD BANK INFCE Blood Expiration Date [id number] MEM BLOOD BANK INFCE Blood Type Barcode 0600 MEM BLOOD BANK INFCE Dispensed Volume 282 ML MEM BLOOD BANK INFCE Other 10/28/2024 9:14 AM EDT 10/28/2024 9:20 AM EDT Galileo Vincent DO BLOOD BANK PRODUCT ORDERABLES Final Result Performing Organization Address [facility] Co de Phone Number [facility] BLOOD BANK INFCE [address] [place] [address], * (ABNORMAL) Iron Saturation (10/28/2024 9:00 AM EDT) Iron Saturation 1:12 PM EDT [facility] Comment:Unable to Calculate Iron <10(L) 30 - 160 ug/dL 10/28/2024 1:12 PM EDT [facility] Transferrin 306 200 - 360 mg/dL 10/28/2024 1:12 PM EDT [facility] Total Iron Binding Capacity 383 255 - 450 ug/dL 10/28/2024 1:12 PM EDT [facility] Blood Structure of peripheral vein / Unknown Venipuncture / Unknown 10/28/2024 9:00 AM EDT 10/28/2024 9:17 AM EDT Radha Chan DO LAB BLOOD ORDERABLES F inal Result Performing Organization Address City/[facility]/ZIP Co de Phone Number [facility] [address] [place] [address], [place] * (ABNORMAL) Manual Differential (10/28/2024 9:00 AM EDT) Neutrophil %, Manual 91 % 10/28/2024 9:57 AM EDT [facility] Band % 3 0 - 7 % 10/28/2024 9:57 AM EDT [facility] Lymphocyte %, Manual 2 % 10/28/2024 9:57 AM EDT [facility] Monocyte %, Manual 4 % 10/28/2024 9:57 AM EDT [facility] Eosinophil %, Manual 0 % 10/28/2024 9:57 AM EDT [facility] Basophil %, Manual 0 % 10/28/2024 9:57 AM EDT [facility] Total Neutrophil #, Manual 12.13(H) 1.50 - 7.80 10*3/uL 10/28/2024 9:57 AM EDT [facility] Bands #,Manual 0.39 10*3/uL 10/28/2024 9:57 AM EDT [facility] Total Lymph #, Manual 0.26(L) 0.85 - 3.90 10*3/uL 10/28/2024 9:57 AM EDT [facility] Monocyte #, Manual 0.52 0.20 - 0.95 10*3/uL 10/28/2024 9:57 AM EDT [facility] Eosinophil #, Manual 0.00(L) 0.02 - 0.50 10*3/uL 10/28/2024 9:57 AM EDT [facility] Basophil #, Manual 0.00 0.00 - 0.20 10*3/uL 10/28/2024 9:57 AM EDT [facility] Platelet Estimate Adequate Adequate 10/28/2024 9:57 AM EDT [facility] RBC Morphology Present(A) Normal, No clinically significant RBC morphology present (ICSH guidelines, 2015). 10/28/2024 9:57 AM EDT [facility] Microcytes 2+(A) Not Present 10/28/2024 9:57 AM EDT [facility] Total Cells Counted 115 10/28/2024 9:57 AM EDT [facility] Blood Structure of peripheral vein / Unknown Venipuncture / Unknown 10/28/2024 9:00 AM EDT 10/28/2024 9:17 AM EDT [facility] [employer] BLOOD ORDERABLES Final Res ult Performing Organization Address City/[facility]/ZIP Co de Phone Number [facility] [address] [place] [address], * Type and Screen (10/28/2024 9:00 AM EDT) ABO Blood Type A 10/28/2024 10:05 AM EDT [facility] BLOOD BANK INFCE RH Type Negative 10/28/2024 10:05 AM EDT [facility] INFCE Expiration Date/Time 2024-10-31 23:59 10/28/2024 10:05 AM EDT [facility] INFCE Antibody Screen Negative 10/28/2024 10:05 AM EDT [facility] B[facility]OD B[facility] INFCE Blood Structure of peripheral vein / Unknown Venipuncture / Unknown 10/28/2024 9:00 AM EDT 10/28/2024 9:20 AM EDT [facility] [employer] [facility] BLOOD BANK TEST ORDERABLES Edited Result - Final Performing Organization Address City/[facility]/ZIP Co de Phone Number [facility] BLOOD BANK INFCE [address] [place] [address], * (ABNORMAL) Folate (10/28/2024 9:00 AM EDT) Folate 30.2(H) 4.8 - 24.2 ng/mL 10/28/2024 1:39 PM EDT [facility] Blood Structure of peripheral vein / Unknown Venipuncture / Unknown 10/28/2024 9:00 AM EDT 10/28/2024 9:17 AM EDT Radha Chan DO LAB BLOOD ORDERABLES F inal Result Performing Organization Address City/[facility]/ZIP Co de Phone Number [facility] [address] [place] [address], [place] * Ferritin (10/28/2024 9:00 AM EDT) Ferritin 66.8 11.0 - 306.0 ng/mL 10/28/2024 1:12 PM EDT [facility] Blood Structure of peripheral vein / Unknown Venipuncture / Unknown 10/28/2024 9:00 AM EDT 10/28/2024 9:17 AM EDT Radha Chan DO LAB BLOOD ORDERABLES F inal Result Performing Organization Address City/[facility] Co de Phone Number [facility] [address] [place] [phone], [place] * Vitamin B12 (10/28/2024 9:00 AM EDT) Vitamin B12 613 232 - 1,245 pg/mL 10/28/2024 1:12 PM EDT [facility] Blood Structure of peripheral vein / Unknown Venipuncture / Unknown 10/28/2024 9:00 AM EDT 10/28/2024 9:17 AM EDT Radha Chan DO LAB BLOOD ORDERABLES F inal Result Performing Organization Address City/[facility]/ZIP Co de Phone Number [facility] [address] [place] [address], [place] * XR Chest Portable 1 View [...] obtain the completed interpretation. ? Workstation ID: [id number] Narrative 10/28/2024 5:57 AM EDT XR CHEST [...] no acute osseous abnormalities. Resulting Agency Comment [id number] Procedure Note Janiya Palmer MD - 10/28/2024 [...] possible to obtain thecompleted interpretation. Workstation ID: [id number] us Lester Wilde MD IMG XR PROCEDURES Final Res ult * COVID-19, Flu A/B & RSV RNA PCR, Symptomatic (10/28/2024 5:14 AM EDT) PCR, SARS CoV-2 RNA Not Detected Not Detected CEPHEID GENEXPERT 10/28/2024 6:11 AM EDT [facility] Comment:A Not Detected (Nega [...] Detected CEPHEID GENEXPERT 10/28/2024 6:11 AM EDT [facility] Comment:Negative results do not preclude infection and should not be used as the sole basis for diagnosis, treatment or other patient management decisions. Negative results must be combined with clinical observations, patient history, and/or epidemiological information. Flu B RNA PCR Not Detected Not Detected CEPHEID GENEXPERT 10/28/2024 6:11 AM EDT [facility] Comment:Negative results do not preclude infection and should not be used as the sole basis for diagnosis, treatment or other patient management decisions. Negative results must be combined with clinical observations, patient history, and/or epidemiological information. RSV RNA PCR Not Detected Not Detected CEPHEID GENEXPERT 10/28/2024 6:11 AM EDT [facility] Comment:Negative results do not preclude infection and should not be used as the sole basis for diagnosis, treatment or other patient management decisions. Negative results must be combined with clinical observations, patient history, and/or epidemiological information. Swab (Nares) Non-Blood Collection / Unknown 10/28/2024 5:14 AM EDT 10/28/2024 5:19 AM EDT Narrative [facility] - 10/28/2024 6:11 AM EDT This test was developed, validated and its performance characteristics determined by [facility] [[email or web address]] Clinical Labs. This test has not been cleared or approved by the U.S. Food and Drug Administration (FDA). FDA Policy for Diagnostic Tests for Coronavirus Disease-2019 during the Public Health Emergency issued September 25, 2019, is followed. us Lester Wilde MD LAB BODY FLUIDS AND STOOLS ORDERABLES Final Result Performing Organization Address City/[facility]/ZIP Co de Phone Number [facility] [address] [place] [phone], [place] * Tejada Top, Urine (10/28/2024 2:47 AM EDT) Extra Tube Hold for add-ons. 10/28/2024 7:05 AM EDT [facility] Comment:Auto resulted. Urine Urine specimen collection, clean catch / Unknown Non-Blood Collection / Unknown 10/28/2024 2:47 AM EDT 10/28/2024 2:50 AM EDT us Renard Hernandez MD LAB URINE ORDERABLES Final Res ult Performing Organization Address [facility] Co de Phone Number [facility] [address] [place] [address], [place] * (ABNORMAL) Urinalysis W/Reflex to Microscopic & Culture (10/28/2024 2:47 AM EDT) Color, Urine Yellow Colorless, Light Yellow, Yellow, Dark Yellow 10/28/2024 3:24 AM EDT [facility] Clarity, Urine Cloudy(A) Clear 10/28/2024 3:24 AM EDT [facility] Specific Dorothy, Urine 1.024 <1.030 10/28/2024 3:24 AM EDT [facility] pH, Urine 6.0 4.6 - 8.0 10/28/2024 3:24 AM EDT [facility] Protein, Urine 1+(A) Negative 10/28/2024 3:24 AM [facility] Glucose, Urine Normal Normal 10/28/2024 3:24 AM [facility] Ketones, Urine Negative Negative 10/28/2024 3:24 AM [facility] Bilirubin, Urine Negative Negative 10/28/2024 3:24 AM [facility] Blood, Urine 1+(A) Negative 10/28/2024 3:24 AM [facility] Nitrite, Urine Negative Negative 10/28/2024 3:24 AM [facility] Urobilinogen, Urine Normal Normal 10/28/2024 3:24 AM [facility] Leukocyte Esterase, Urine 3+(A) Negative 10/28/2024 3:24 AM [facility] WBC, Urine >182(H) 0 - 2 /HPF 10/28/2024 3:24 AM [facility] WBC Clumps, Urine Few /HPF 10/28/2024 3:24 AM [facility] RBC, Urine 12(H) 0 - 2 /HPF 10/28/2024 3:24 AM [facility] Hyaline Casts, Urine 0 0 - 2 /LPF 10/28/2024 3:24 AM [facility] Squamous Epithelial Cells, Urine 2 /HPF 10/28/2024 3:24 AM [facility] Trans Epithelial Cells, Urine 1 /HPF 10/28/2024 3:24 AM [facility] Bacteria, Urine Moderate(A) None /HPF /HPF 10/28/2024 3:24 AM [facility] Urine Urine specimen collection, clean catch / Unknown Non-Blood Collection / Unknown 10/28/2024 2:47 AM EDT 10/28/2024 2:50 AM EDT us Renard Hernandez MD LAB URINE ORDERABLES Final Res ult [facility] [address] [place] [address], [place] * (ABNORMAL) Urine Culture, Routine (10/28/2024 2:47 AM EDT) Culture Results Updated 10/31/2024 5:55 AM EDT [employer] [place] [employer] Culture Escherichia coli(A) 10/31/2024 5:55 AM EDT [employer] [facility] Comment:Greater than 100,000 CFU/mL of Escherichia coli Culture Klebsiella pneumoniae(A) 10/31/2024 5:55 AM EDT [employer] [facility] Comment:Greater than 100,000 CFU/mL of Klebsiella pneumoniae Urine Urine specimen collection, clean catch / Unknown Non-Blood Collection / Unknown 10/28/2024 2:47 AM EDT 10/28/2024 3:24 AM EDT [facility] - 10/31/2024 5:55 AM EDT [employer] Received Date: MICRO NUMBER: [id number] SPECIMEN QUALITY: Adequate SOURCE: URINE CLEAN CATCH [...] - GEN ERAL ORDERABLES Final Result [facility] [address] [facility] 3[address], [place] [address], [place] [phone] [employer] [facility] [address] [facility] 3rd Floor, [place] [address], [place] [phone] * CT Abdomen Pelvis with Contrast (10/28/2024 [...] obtain the completed interpretation. ? Workstation ID: [id number] Up-to-date CT equipment and radiation dose reduction [...] of the osseous structures. Resulting Agency Comment [id number] Procedure Note Richard Newton MD - 04/19/2025 [...] possible to obtain thecompleted interpretation. Workstation ID: [id number] Up-to-date CT equipment and radiation dose reduction [...] obtain the completed interpretation. ? Workstation ID: [id number] Narrative 10/28/2024 4:17 AM EDT COMPARISONS: None. FINDINGS: Hip joint spaces are only mildly narrowed. ??Mild narrowing and degenerative change of the pubic symphysis. ??Mild sacroiliac degenerative change. ??Bones appear probably demineralized. ??No evidence of fracture, dislocation or lysis. ??Mild vascular calcification. Resulting Agency Comment [id number] Procedure Note Sid Valenzuela MD - 10/28/2024 [...] possible to obtain thecompleted interpretation. Workstation ID: [id number] Renard Hernandez MD IMG XR PROCEDURES Final Result * Tejada Top (10/28/2024 1:02 AM EDT) Extra Tube Hold for add-ons. 10/28/2024 5:05 AM EDT [facility] Comment:Auto resulted. Blood Structure of peripheral vein / Unknown 10/28/2024 1:02 AM EDT 10/28/2024 1:02 AM EDT Renard Hernandez MD LAB BLOOD ORDERABLES Final Res ult Performing Organization Address City/[facility] Co de Phone Number [facility] [address] [place] [phone], [place] * Lavender Top (10/28/2024 1:02 AM EDT) Extra Tube Hold for add-ons. 10/28/2024 5:05 AM EDT [facility] Comment:Auto resulted. Blood Structure of peripheral vein / Unknown 10/28/2024 1:02 AM EDT 10/28/2024 1:02 AM EDT Renard Hernandez MD LAB BLOOD ORDERABLES Final Res ult Performing Organization Address [facility] de Phone Number [facility] [address] [place] [address], [place] * Magnesium (10/28/2024 12:58 AM EDT) MG 1.8 1.6 - 2.4 mg/dL 10/28/2024 1:35 AM EDT [facility] Blood Structure of peripheral vein / Unknown Venipuncture / Unknown 10/28/2024 12:58 AM EDT 10/28/2024 1:01 AM EDT Renard Hernandez MD LAB BLOOD ORDERABLES Final Res ult Performing Organization Address City/[facility]/ZIP Co de Phone Number [facility] [address] [place] [phone], [place] * Lipase (10/28/2024 12:58 AM EDT) Lipase 28 13 - 60 U/L 10/28/2024 1:35 AM EDT [facility] Blood Structure of peripheral vein / Unknown Venipuncture / Unknown 10/28/2024 12:58 AM EDT 10/28/2024 1:01 AM EDT us Renard Hernandez MD LAB BLOOD ORDERABLES Final Res ult [facility] [address] [place] [address], [place] * (ABNORMAL) CMP - Comprehensive Metabolic Panel (10/28/2024 12:58 AM EDT) NA 128(L) 135 - 145 mmol/L 10/28/2024 1:35 AM EDT [facility] K 4.7 3.5 - 5.3 mmol/L 10/28/2024 1:35 AM EDT [facility] Cl 96(L) 98 - 107 mmol/L 10/28/2024 1:35 AM EDT [facility] CO2 17(L) 22 - 32 mmol/L 10/28/2024 1:35 AM EDT [facility] Anion Gap 15 5 - 15 10/28/2024 1:35 AM EDT [facility] Glucose 160(H) 65 - 99 mg/dL 10/28/2024 1:35 AM EDT [facility] Creatinine 2.23(H) 0.50 - 1.20 mg/dL 10/28/2024 1:35 AM EDT [facility] Calcium 9.5 8.6 - 10.5 mg/dL 10/28/2024 1:35 AM EDT [facility] Total Protein 6.6 6.0 - 8.0 g/dL 10/28/2024 1:35 AM EDT [facility] Albumin 3.5 3.5 - 5.2 g/dL 10/28/2024 1:35 AM EDT [facility] Bilirubin, Total 1.2 0.2 - 1.2 mg/dL 10/28/2024 1:35 AM EDT [facility] Alkaline Phosphatase 94 35 - 129 U/L 10/28/2024 1:35 AM EDT [facility] AST 37 10 - 40 U/L 10/28/2024 1:35 AM EDT [facility] ALT 9(L) 10 - 40 U/L 10/28/2024 1:35 AM EDT [facility] BUN 67(H) 7 - 23 mg/dL 10/28/2024 1:35 AM EDT [facility] eGFR 22(L) >=60 mL/min/1 .73m2 10/28/2024 1:35 AM EDT [facility] Comment:The estimated glomer ular [...] - 4.2 g/dL 10/28/2024 1:35 AM EDT [facility] A/G Ratio 1.1(L) 1.5 - 3.0 10/28/2024 1:35 AM EDT [facility] Blood Structure of peripheral vein / Unknown Venipuncture / Unknown 10/28/2024 12:58 AM EDT 10/28/2024 1:01 AM EDT us Renard Hernandez MD LAB BLOOD ORDERABLES Final Res ult [facility] [address] [place] [address], [place] * Urinalysis, Outside Lab (09/02/2024 9:20 AM EST) us Christen Lopes MD LAB URINE ORDERABLES Final Re sult * LAB - SCANNED (08/29/2024) us Onbase Scan Mindy LAB HISTORICAL RESULTS Final Result from Last 3 Months Insurance [facility] MEDICARE Advance Directives Documents on File Type Date Recorded 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
--- OUTSIDE RECORDS SUMMARY | 2024-11-20 11:20 | XMS_ITS | Encounter Summary ---
Author Organization [facility] Address [address] [place] [address] Care Team Providers Care Train Brakeman Name Role Phone Meghan Hicks MD Primary Care Provider UnaBeatrice Puente MD Unavailable [facility], Pcp Primary Care Provider Unavailabl e Meghan Hicks MD Primary Care Provider Unava Andree Nicholas MD Primary Care Provider Unavaila ble Reason for Visit * Reason Onset Date Comments Quality Measure 04/20/2014 LDL Encounter Details Date Type Department Care Team Description 04/20/2014 Telephone Medicine/Pediatrics - [address] [phone] Meghan Hicks MD Quality Measure (LDL) Social [...] - 200 mg/dL 06/15/2014 1:18 PM EST [facility] TRIGLYCERIDES 346(H) 0 - 150 mg/dL 06/15/2014 1:00 PM [facility] HDL CHOLESTEROL 54 >40 mg/dL 4 1:00 PM [facility] LDL CALCULATED 200(H) 0 - 100 mg/dL 06/15/2014 1:18 PM [facility] TC-HDLC RATIO 6(H) 0.0 - 4.4 mg/dL 06/15/2014 1:18 PM [facility] 06/15/2014 10:3 2 AM EST 06/15/2014 10:33 AM EST Meghan Hicks MD LAB Performing Organization Address City/State/[facility] de Phone Number [id number] documented in this encounter Visit Diagnoses Diagnosis Hyperlipidemia- Primary Other and unspecified hyperlipidemia documented in this encounter Care Teams Train Brakeman Relationship Specialty Start Date End Date Meghan Hicks MD PCP - General Internal Medicine 04/08/12 01/15/22 [facility], Pcp PCP - General Internal Medicine 01/16/22 03/05/22 Meghan Hicks MD PCP - General Internal Medicine 03/06/22 03/18/22 Andree Gonzalez MD PCP - General Internal Medicine 03/19/22 Beatrice Holloway MD Specialist Cardiology 07/31/21 documented as of this encounter
--- OUTSIDE RECORDS SUMMARY | 2024-11-20 11:20 | XMS_ITS | Encounter Summary ---
Author Organization [facility] Address [address] [place] [address] Care Team Providers Care Courtroom Reporter Name Role Phone Meghan Hicks MD Primary Care Provider Beatrice Garvey MD Unavailable [facility] Primary Care Provider Unavailbrown e Meghan Hicks MD Primary Care Provider Andree Stallworth MD Primary Care Provider Unavaila ble Encounter Details Date Type Department Care Team Description 04/24/2014 SCAN Medical Records [address] [place] [id number] Abstract, Provider Social History Tobacco Use Types [...] Name Priority Date/Time Associated Diagnosis Comments OUTSIDE LAB Routine 01/25/2014 documented in this encounter Results * OUTSIDE LAB (01/25/2014) Provider Abstract LAB documented in this encounter Visit Diagnoses Not on filedocumented in this encounter Care Teams Courtroom Reporter Relationship Specialty Start Date End Date Meghan Hicks MD PCP - General Internal Medicine 04/08/12 01/15/22 [facility] PCP - General Internal Medicine 01/16/22 03/05/22 Meghan Hicks MD PCP - General Internal Medicine 03/06/22 03/18/22 Andree Gonzalez MD PCP - General Internal Medicine 03/19/22 Beatrice Holloway MD Specialist Cardiology 07/31/21 documented as of this encounter
--- OUTSIDE RECORDS SUMMARY | 2024-11-20 11:20 | XMS_ITS | Encounter Summary ---
Author Organization [facility] Address [address] [place] [address] Care Team Providers Care Control Systems Technician Name Role Phone Meghan Hicks MD Primary Care Provider Beatrice Garvey MD Unavailable [facility] Primary Care Provider UnavailMeghan Jones MD Primary Care Provider Andree Stallworth MD Primary Care Provider Unavailnathaly barcenas Encounter Details Date Type Department Care Team Description 09/10/2021 Business Doc Medical Records [address] [place] [id number] Abstract, Provider Social History Tobacco Use Types [...] on filedocumented in this encounter Care Teams Control Systems Technician Relationship Specialty Start Date End Date Meghan Hicks MD PCP - General Internal Medicine 04/08/12 01/15/22 [facility] PCP - General Internal Medicine 01/16/22 03/05/22 Meghan Hicks MD PCP - General Internal Medicine 03/06/22 03/18/22 Andree Gonzalez MD PCP - General Internal Medicine 03/19/22 Beatrice Holloway MD Specialist Cardiology 07/31/21 documented as of this encounter
--- OUTSIDE RECORDS SUMMARY | 2024-11-20 11:20 | XMS_ITS | Encounter Summary ---
Author Organization [facility] Address [address] [place] [address] Care Team Providers Care Sales Intern Name Role Phone Meghan Hicks MD Primary Care Provider Beatrice Garvey MD Unavailable [facility], Pcp Primary Care Provider Unavailabl e Meghan Hicks MD Primary Care Provider Andree Stallworth MD Primary Care Provider Unavailnathaly barcenas Encounter Details Date Type Department Care Team Description 03/27/2014 Fixture Designer Report Medical Records [address] [place] [id number] Ashok Forbes MD Social History Tobacco Use [...] filedocumented in this encounter Care Teams Sales Intern Relationship Specialty Start Date End Date Meghan Hicks MD PCP - General Internal Medicine 04/08/12 01/15/22 [facility], Pcp PCP - General Internal Medicine 01/16/22 03/05/22 Meghan Hicks MD PCP - General Internal Medicine 03/06/22 03/18/22 Andree Gonzalez MD PCP - General Internal Medicine 03/19/22 Beatrice Holloway MD Specialist Cardiology 07/31/21 documented as of this encounter
--- OUTSIDE RECORDS SUMMARY | 2024-11-20 11:20 | XMS_ITS | Encounter Summary ---
Author Organization [facility] Address [address] [place] [address] Care Team Providers Care Cook Specialty Name Role Phone Meghan Hicks MD Primary Care Provider Beatrice Garvey MD Unavailable [facility], Pcp Primary Care Provider Unavailabl e Meghan Hicks MD Primary Care Provider Andree Stallworth MD Primary Care Provider Unavaila ble Encounter Details Date Type Department Care Team Description 07/03/2021 Home Health Certification Medical Records [address] [place], [place] [id number] [place] [address] [address] [place] [address] Social History Tobacco Use Types Packs/Day Years [...] filedocumented in this encounter Care Teams Cook Specialty Relationship Specialty Start Date End Date Meghan Hicks MD PCP - General Internal Medicine 04/08/12 01/15/22 [facility], Pcp PCP - General Internal Medicine 01/16/22 03/05/22 Meghan Hicks MD PCP - General Internal Medicine 03/06/22 03/18/22 Andree Gonzalez MD PCP - General Internal Medicine 03/19/22 Beatrice Holloway MD Specialist Cardiology 07/31/21 documented as of this encounter
--- OUTSIDE RECORDS SUMMARY | 2024-11-20 11:20 | XMS_ITS | Encounter Summary ---
Author Organization [facility] Address [address] [place] [address] Care Team Providers Care Tobacco Stemmer Machine Name Role Phone Meghan Hicks MD Primary Care Provider Beatrice Garvey MD Unavailable [facility], Pcp Primary Care Provider Meghan Chacko MD Primary Care Provider Andree Stallworth MD Primary Care Provider Janene barcenas Encounter Details Date Type Department Care Team Description 01/30/2021 Pt. Non Urgent Medic al Question Medicine/Pediatrics - [address] [id number] Meghan Hicks MD Social History Tobacco Use [...] encounter Miscellaneous Notes * Telephone Encounter - Armando Decker R.N. - 01/30/2021 9:10 AM EDTFrom: Francine Pope To: Bela Hicks Sent: 01/30/2021 8:42 AM EDT Subject: Echo Looking for results on my echo done January 22 documented in this encounter Plan of Treatment Not on file documented as of this encounter Visit Diagnoses Not on filedocumented in this encounter Care Teams Tobacco Stemmer Machine Relationship Specialty Start Date End Date Meghan [...]
--- OUTSIDE RECORDS SUMMARY | 2024-11-20 11:20 | XMS_ITS | Encounter Summary ---
Author Organization [facility] Address [address] [place] [address] Care Team Providers Care Parking Lot Spotter Name Role Phone Meghan Hicks MD Primary Care Provider Beatrice Garvey MD Unavailable [facility], Pcp Primary Care Provider Unavailabl e Meghan Hicks MD Primary Care Provider Andree Stallworth MD Primary Care Provider Unavaila narinder Encounter Details Date Type Department Care Team Description 05/06/2021 Industrial Robotics Mechanic Report Medical Records [address] [place] [id number] [place] [address] Orthopedic, Surgeons Social History Tobacco Use Types [...] on filedocumented in this encounter Care Teams Parking Lot Spotter Relationship Specialty Start Date End Date Meghan Hicks MD PCP - General Internal Medicine 04/08/12 01/15/22 [facility], Pcp PCP - General Internal Medicine 01/16/22 03/05/22 Meghan Hicks MD PCP - General Internal Medicine 03/06/22 03/18/22 Andree Gonzalez MD PCP - General Internal Medicine 03/19/22 Beatrice Holloway MD Specialist Cardiology 07/31/21 documented as of this encounter
--- OUTSIDE RECORDS SUMMARY | 2024-11-20 11:21 | XMS_ITS | Encounter Summary ---
Author Organization [facility] Address [address] [place] [address] Care Team Providers Care Harness Worker Name Role Phone Mayo Donnelly MD Primary Care Provider [phone] Encounter Details Date Type Department Care Team (Late st Contact Info) Description 07/25/[address] [facility] - Main Lab [address] [facility] [place] [address] Mayo Donnelly MD [address] [place] [address] Encounter for other general examination Social History [...] reflex microscopic (07/24/2024 6:55 PM EST) Specific [place] Urine 1.025 1.003 - 1.030 LAB URINALYSIS - AUTOMATED METHOD 07/25/2024 1:24 PM [facility] pH, Urine 5.5 5.0 - 8.0 pH LAB URINALYSIS - AUTOMATED METHOD 07/25/2024 1:24 PM [facility] Leukocytes, Urine Moderate(A) Negative LAB URINALYSIS - AUTOMATED METHOD 07/25/2024 1:24 PM [facility] Nitrite, Urine Positive(A) Negative LAB URINALYSIS - AUTOMATED METHOD 07/25/2024 1:24 PM [facility] Protein, Urine >=300(A) <=Trace mg/dL LAB URINALYSIS - AUTOMATED METHOD 07/25/2024 1:24 PM [facility] Glucose, Urine Negative Negative mg/dL LAB URINALYSIS - AUTOMATED METHOD 07/25/2024 1:24 PM [facility] Ketones, Urine Trace(A) Negative mg/dL LAB URINALYSIS - AUTOMATED METHOD 07/25/2024 1:24 PM [facility] Urobilinogen , Urine 1.0 0.2 - 1.0 mg/dL LAB URINALYSIS - AUTOMATED METHOD 07/25/2024 1:24 PM [facility] Bilirubin, Urine Negative Negative LAB URINALYSIS - AUTOMATED METHOD 07/25/2024 1:24 PM [facility] Blood, Urine Large(A) Negative LAB URINALYSIS - AUTOMATED METHOD 07/25/2024 1:24 PM [facility] RBC, Urine >4,000(H) 0 - 4 /HPF LAB URINALYSIS - AUTOMATED METHOD 07/25/2024 1:24 PM [facility] WBC, Urine 1,000.0(H) 0 - 4 /HPF LAB URINALYSIS - AUTOMATED METHOD 07/25/2024 1:24 PM [facility] Squamous Epithelial, Urine >100(H) 0 - 60 /LPF LAB URINALYSIS - AUTOMATED METHOD 07/25/2024 1:24 PM [facility] Bacteria, Urine Many(A) Negative /HPF LAB URINALYSIS - AUTOMATED METHOD 07/25/2024 1:24 PM [facility] Hyaline Casts, Urine 0.00 0 - 3 /LPF LAB URINALYSIS - AUTOMATED METHOD 07/25/2024 1:24 PM [facility] Urine Urine specimen obtained by clean catch procedure / Unknown Non-blood Collection / Unknown 07/24/2024 6:55 PM EST 07/25/2024 10:05 AM EST us Mayo Donnelly MD LAB URINE ORDERABLES Final Res ult Performing Organization Address City/[facility]/ZIP Co de Phone Number [facility] [address] [place] [address], [place] [phone] * Ceron urine culture tube (07/24/2024 6:55 PM EST) Extra Tube Hold for add-ons. 07/25/2024 12:01 PM [facility] Comment:Auto resulted. Urine Urine specimen obtained by clean catch procedure / Unknown Non-blood Collection / Unknown 07/24/2024 6:55 PM EST 07/25/2024 10:05 AM EST us Mayo Donnelly MD LAB URINE ORDERABLES Final Res ult Performing Organization Address City/[facility]/ZIP Co de Phone Number [facility] [address] [place] [address], [place] [phone] documented in this encounter Visit Diagnoses Diagnosis Encounter for other general examination documented in this encounter Care Teams Harness Worker Relationship Specialty Start Date End Date Mayo Donnelly MD [address] [place] [id number] PCP - General Internal Medicine 11/06/24 documented as of this encounter
--- OUTSIDE RECORDS SUMMARY | 2024-11-20 11:21 | XMS_ITS | Encounter Summary ---
Author Organization [facility] Address [address] [place] [address] Care Team Providers Care Clinical Biostatistics Director Name Role Phone Meghan Hicks MD Primary Care Provider Beatrice Garvey MD Unavailable [facility], Pcp Primary Care Provider Unavailabl e Meghan Hicks MD Primary Care Provider Andree Stallworth MD Primary Care Provider Unavaila ble Encounter Details Date Type Department Care Team Description 12/07/2017 Gasser Machine Operator Report Medical Records [address] [place] [address] Natalia Firedman Np Social History Tobacco Use Types Packs/Day Years [...] on filedocumented in this encounter Care Teams Clinical Biostatistics Director Relationship Specialty Start Date End Date Meghan Hicks MD PCP - General Internal Medicine 04/08/12 01/15/22 [facility], Pcp PCP - General Internal Medicine 01/16/22 03/05/22 Meghan Hicks MD PCP - General Internal Medicine 03/06/22 03/18/22 Andree Gonzalez MD PCP - General Internal Medicine 03/19/22 Beatrice Holloway MD Specialist Cardiology 07/31/21 documented as of this encounter
--- OUTSIDE RECORDS SUMMARY | 2024-11-20 11:21 | XMS_ITS | Encounter Summary ---
Author Organization [facility] Address [address] [place] [address] Care Team Providers Care Cat Dog Or Other Pet Groomer Name Role Phone Meghan Hicks MD Primary Care Provider Beatrice Gavrey MD Unavailable [facility], Pcp Primary Care Provider UnavailMeghan Jones MD Primary Care Provider Andree Stallworth MD Primary Care Provider Unavaila ble Encounter Details Date Type Department Care Team Description 05/10/2018 Hospital Medical Records [address] [place] [address] [address]o [address] [place] [address], [address] [address] Social History Tobacco Use Types Packs/Day Years [...] on filedocumented in this encounter Care Teams Cat Dog Or Other Pet Groomer Relationship Specialty Start Date End Date Meghan Hicks MD PCP - General Internal Medicine 04/08/12 01/15/22 [facility], Pcp PCP - General Internal Medicine 01/16/22 03/05/22 Meghan Hicks MD PCP - General Internal Medicine 03/06/22 03/18/22 Andree Gonzalez MD PCP - General Internal Medicine 03/19/22 Beatrice Holloway MD Specialist Cardiology 07/31/21 documented as of this encounter
--- OUTSIDE RECORDS SUMMARY | 2024-11-20 11:21 | XMS_ITS | Encounter Summary ---
Author [facility] Address [address] [place] [address] Care Team Providers Care Linux Consultant Name Role Phone Beatrice Holloway MD Unavailable Meghan Hicks MD Primary Care Provider Unava ilable Andree Gonzalez MD Primary Care Provider Unavaila ble Encounter Details Date Type Department Care Team Description 03/18/2022 Release of Information Medical Records [address] [place] [id number] [place] [address] Social History Tobacco Use Types Packs/Day Years [...] on filedocumented in this encounter Care Teams Linux Consultant Relationship Specialty Start Date End Date Meghan Hicks MD PCP - General Internal Medicine 03/06/22 03/18/22 Andree Gonzalez MD PCP - General Internal Medicine 03/19/22 Beatrice Holloway MD Specialist Cardiology 07/31/21 documented as of this encounter
--- OUTSIDE RECORDS SUMMARY | 2024-11-20 11:21 | XMS_ITS | Encounter Summary ---
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
--- OUTSIDE RECORDS SUMMARY | 2024-11-20 11:21 | XMS_ITS | Clinical Summary ---
Author Organization [facility] Address [address] [place] [address] Care Team Providers Care Television Specialist Name Role Phone Beatrice Holloway MD Unavailable Andree Gonzalez MD Primary Care Provider Unavaila ble Allergies Active Allergy Reactions Severity Noted Date Comments Cefdinir Itching/Pruritus 05/11/2016 See tel enc 05/11/16 Has tolerated keflex Sulfa Drugs Itching/Pruritus 05/19/2013 Trimethoprim Itching/Pruritus 05/19/2013 Medications Medication Sig Dispensed Refills Start Date End Date Status Blood Glucose Calibration (FREESTYLE CONTROL SOLUTION) LIQDIndications:DM type 2, uncontrolled, with renal complications Use to calibrate meter as needed 1 Each 1 4 Active Blood Glucose Monitoring Suppl (FREESTYLE INSULINX SYSTEM) W/DEVICE KitIndications:Controlled type 2 diabetes mellitus with microalbuminuria, without long-term current use of insulin ([facility]) Test blood sugar daily and as needed 1 Kit 0 7 Active FREESTYLE LANCETS MiscIndications:Controlle d type 2 diabetes mellitus with microalbuminuria, without long-term current use of insulin (HCC) Use to check sugar daily as needed 100 Each 11 7 Active carbidopa-levodopa (SINEMET) 25-100 MG per tablet Take 1 tablet by mouth 4 times daily. 2 in the am 2 in the pm 0 Active Ipratropium-Albuterol 0.5-2.5 (3) MG/3ML SolutionIndications:Mild persistent asthma without complication,Toro's esophagus determined by biopsy,Parkinson disease (HCC),Aortic stenosis, mild,History of DVT (deep vein thrombosis),Allergic rhinitis due to pollen, unspecified seasonality,Post-nasal drainage Inhale 3 mL into the lungs as needed. 0 Active ALBUTEROL SULFATE 108 (90 BASE) MCG/ACT Aero Soln Inhale 2 Puffs into the lungs every 4 hours as needed for Cough, Wheezing or Shortness of Breath. 1 Inhaler 0 9 Active ursodiol (ACTIGALL) 300 MG capsule 2 am 2 pm 0 0 Active Fluticasone Furoate (ARNUITY ELLIPTA) 100 MCG/ACT AEROSOL POWDER,BREATH ACTIVATEDIndications:Mild persistent asthma without complication,Toro's esophagus determined by biopsy,Parkinson disease (HCC),Aortic stenosis, mild,History of DVT (deep vein thrombosis),Allergic rhinitis due to pollen, unspecified seasonality,Post-nasal drainage Inhale 100 mcg into the lungs daily. This medication has inhaler steroid: Rinse mouth with water and expectorate after each dose to prevent oral/esophageal candidiasis or fungal infection. 3 Each 3 0 Active pantoprazole (PROTONIX) 20 MG tablet 0 0 Active pramipexole (MIRAPEX) 0.25 MG tablet 0 1 Active Glucose Blood (FREESTYLE LITE) Strip TEST EVERY DAY NEEDED 100 Strip 3 1 Active amlodipine (NORVASC) 10 MG tablet Take 1 tablet by mouth daily. 90 tablet 1 2 Active glipiZIDE (GLUCOTROL) 2.5 MG 24 hr tablet Take 1 tablet by mouth daily. 90 tablet 1 2 Active metformin (GLUCOPHAGE-XR) 500 MG 24 hr tablet TAKE 2 TABLETS BY MOUTH EVERY MORNING AND TAKE 1 TABLET BY MOUTH EVERY EVENING 270 tablet 1 2 Active atorvastatin (LIPITOR) 40 MG tabletIndications:Pure hypercholesterolemia TAKE 1 TABLET BY MOUTH EVERY DAY 90 tablet 1 2 Active fenofibrate (TRICOR) 54 MG tablet Take 54 mg by mouth daily. 0 Active Umeclidinium Dulzura (Incruse Ellipta) 62.5 MCG/INH AEROSOL POWDER,BREATH ACTIVATED Inhale 1 Puff into the lungs daily. 1 Each 5 2 Active Cholecalciferol (Vitamin D3) 1.25 MG (70754 UT) Cap Take 1 capsule by mouth once a week. 12 capsule 0 2 Active losartan (COZAAR) 25 MG tablet Take 1 Tablet by mouth daily. 90 Tablet 1 2 Active lorazepam (ATIVAN) 0.5 MG tablet Take 1 Tablet by mouth 2 times daily as needed for Anxiety. 20 Tablet 0 2 Active Active Problems Patient Care Coordination No te Formatting of this note is d ifferent from the original. Checking Your Blood Sugars Please check your blood sugars every day. Please check your sugars at the following times of day: once a day, various times Your Blood Sugar Goals Pre Meal: 90-130 2 hours after meals: 110-160 Bedtime: 110-150 Use the Results ?? Bring your glucometer to every appointment ?? Write your fingerstick blood sugars down on a log sheet or record book. Bring them to your appointment ?? Look for patterns in the numbers. The results help you and your provider make decisions about your diabetes treatment plan. Your Results and your Goals Your Result / Date of Completion Your Goal / How Often to Assess Component Value Date HGBA1C 7.4 10/13/2015 Less than 7%--- 2-4 times per year BP Readings from Last 1 Encounters: 10/16/15 140/82 Less than 130/80--- once per year Component Value Date LDL 112 10/13/2015 LDL less than 100--- once per year Component Value Date MALBUR 70.2 10/13/2015 Less than 30--- once per year Wt Readings from Last 1 Encounters: 10/16/15 152 lb (68.947 kg) Your goal weight by next visit: 150 --- reassess 2-4 times a year Health Maintenance Due Topic Date Due ? ? Diabetes: Annual Care Plan 09/29/2015 ? ? Diabetes: Annual Foot Exam 10/01/2015 Your Action Plan Adjust your medication as directed. Check blood glucose as directed and write down all results. Contact me if you experience any barriers to care such as inability to purchase your medication, difficulty getting to your appointments or difficulty understanding your care plan When to Call your Healthcare Provider If your blood sugar falls below 70 and you do not know why or you become unconscious If you are sick and unable to take liquids because or nausea or vomiting If you have a fever over 101 If your blood sugar is 300 or higher on greater than 3 separate occasions during the same week If you are just unsure what to do Educational Resources [place] Diabetes Association (www.diabetes.org) Centers for Disease Control and Prevention (www.cdc.gov/diabetes) This care plan was created in collaboration with Francine Pope on 10/16/2015 Problem Noted Date 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 Foster Type 2 diabetes mellitus with cataract 0 03/25/2015 Vasovagal syncope 03/21/2014 Overview: After liver bx x 2 and from abd pain Aortic stenosis, mild 04/28/2013 Overview: 08/22: Aortic sclerosis and MV sclerosis; mild LVH; mild diast dysfxn; 12/26 mild aortic stenosis Last Assessment & Plan: Most recent echocardiogram demonstrated mild aortic stenosis. We will repeat another echocardiogram in summertime. 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 I will discontinue furosemide. 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 Amie Pereira; yearly TSH and yearly fat-soluble's particularly A and D Hyperlipidemia 01/26/2011 Cough variant asthma 01/26/2011 Osteopenia 01/26/2011 Overview: T score -2.2 left hip 10/28; 9.6% risk major fx Diastolic dysfunction- LVH 200701/27/20 11 LBP (low back pain) 01/26/2011 Diverticulitis Recurrent UTI History of DVT (deep vein thrombosis) Overview: post op 07/21/2012 Pneumonia Overview: post op 07/21/2012 Resolved Problems Problem Noted Date Resolved Date Toro's esophagus determined by biopsy 018 03/12/2020 Overview: EGD 05/29; normal endoscopic appearance, +bx; repeat EGD recommended in one year; Dr. Jacobo Type II or unspecified type diabetes mellitus without mention of complication, not stated as uncontrolled 01/26/2011 Immunizations Name Administration Dates Next Due COVID-19 (Pfizer) Pt Reported 09/26/2020, 021 Influenza (> 6 Months) 04/08/2015,2013,04/28/2013,03/16,04/23/2011 Influenza Vaccine-quadrivale nt 4 Years Plus 06/11/2017 Influenza vaccine high dose age 65 and over 04/29/2020,04/26/2019,05/02/2018,05/04 Pneumoccoccal(Adult) Polysac charide PPSV23 08/05/2016,03/27/2009 Pneumococcal Conjugate PCV-13 12/31/2014 TD (STATE SUPPLIED FOR ADULT S AND CHILDREN) 08/06/2006 Tdap 03/16/2012 Zostavax 06/19/2011 Family History Medical History Relation Name Comments Hypertension Brother 2 Cholesterol Level Brother 3 Hypertension Sister 2 Cholesterol Level Sister 3 Hemochromatosis Sister 4 CA Breast Negative Hx Relation Name Status Comments Brother 1 Alive chol, HTN Brother 2 Brother 3 Daughter 1 Alive Daughter 2 Alive Father (Age mid 70's) thro at cancer, emphysema (aerospace engineer officer armament) Mother (Age mid 70's) Sister 1 Alive chol, HTN, kirsten chromatosis Sister 2 Sister 3 Sister 4 Social History Tobacco Use Types Packs/Day Years Used Date Smoking Tobacco: Former Cigarettes 1.5 20 Q uit: 07/12/1998 Smokeless Tobacco: Never Alcohol Use Standard Drinks/Week Comments No 0 (1 standard drink = 0.6 oz pur e alcohol) Sex Assigned at Date Recorded Not on file Job Start Date Occupation Industry Not on file Not on file Not on file Last Filed Vital Signs Vital Sign Reading Time Taken Comments Blood Pressure 150/83 03/19/2022 2:39 PM EDT Pulse 92 09/16/2021 9:00 AM EST Temperature 36 ??C (96.8 ??F) 09/16/2021 9:00 AM EST Respiratory Rate 16 08/02/2020 10:17 AM EST Oxygen Saturation 98% 09/11/2021 2:55 PM EST Inhaled Oxygen Concentration - - Weight 67.1 kg (148 lb) 03/19/2022 2:39 PM EDT Height 157.5 cm (5' 2 ) 03/19/2022 2:39 PM EDT Body Mass Index 27.07 03/19/2022 2:39 PM EDT Plan of Treatment Health Maintenance Due Date Last Done Comments SHINGLES VACCINE (2 of 3) 08/14/2011 06/19/2011 DEPRESSION SCREEN 09/01/2019 09/01/2018 DIABETES: ANNUAL FOOT EXAM 12/01/201911/30, 06/13/2017, 02/17/2016, Additional history exists BONE DENSITY SCREENING 10/10/2020 9, 04/17/2015, 02/09/2013 DIABETES: BLOOD SUGAR CONTRO L TEST (HGBA1C) 11/30/2021 09/02/2021, 05/19/2021, 10/10/2020, Additional history exists DTAP/TDAP/TD (2 - Td or Tdap) 03/16/2022 03/16/2012, 08/06/2006 DIABETES/HEART DISEASE: DARELL AL CHOLESTEROL (LDL) 05/19/2022 05/19/2021, 10/10/2020, 03/05/2020, Additional history exists DIABETES: ANNUAL EYE EXAM 08/14/20222021, 11/28/2018, 01/04/2018 (External Completion of test per patient (Patient reports normal results)), Additional history exists DIABETES: ANNUAL URINE PROTE IN TEST (MICROALBUMIN) 09/02/2022 09/02/2021, 10/10/2020, 03/05/2020, Additional history exists MAMMOGRAM 09/08/2022 09/08/2021, 08/13, 08/28/2019, Additional history exists FALL RISK ASSESSMENT 09/16/2022 09/16/2021, 03/12/2020, 09/01/2018 Covid-19 Vaccine (2022- 4 season) 2024 05/28/2021, 09/26/2020, 09/05/2020 BMI CHECK/ADVISE 07/12/2024 04/26/2019, 04/2019, 10/28/2018, Additional history exists INFLUENZA (Season Ended) 2025 020, 04/26/2019, 05/02/2018, Additional history exists HEPATITIS C SCREENING Completed 04/18/2015 , 08/02/2013 (External Completion) PNEUMOCOCCAL VACCINE Completed 08/05/2016, 12/31/2014, 03/27/2009 Care Teams Television Specialist Relationship Specialty Start Date End Date Andree Gonzalez MD PCP - General Internal Medicine 03/19/22 Beatrice Holloway MD Specialist Cardiology 07/31/21
--- OUTSIDE RECORDS SUMMARY | 2024-11-20 11:21 | XMS_ITS | Encounter Summary ---
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
--- OUTSIDE RECORDS SUMMARY | 2024-11-20 11:21 | XMS_ITS | Encounter Summary ---
Author Organization [facility] Address [address] [place] [address] Care Team Providers Care Order Clerk Name Role Phone Meghan Hicks MD Primary Care Provider UnaBeatrice Puente MD Unavailable [facility], [facility] Primary Care Provider Unavailabl Meghan Pereira MD Primary Care Provider Unava Andree Nicholas MD Primary Care Provider Unavaila ble Reason for Referral * Non KATERYNA (Routine) - Authorized/Booked Specialty Diagnoses / Procedures Referred By Contac t Referred To Contact Pulmonology Procedures REFERRAL TO PULMONOLOGY Meghan Hicks MD [address] [place] [address] Pulmo/[place] [phone] [address] Referral ID Status Reason Start Date Expiration Date V isits Requested Visits Authorized [id number] Authorized/B ooked 05/31/2018 05/31/2019 12 12 Encounter Details Date Type Department Care Team Description 05/29/2018 Pt. Non Urgent Medic al Question Medicine/Pediatrics - [address] [phone] Meghan Hicks MD Social History Tobacco Use [...] hicks wants me to see respiratory for floorworker lasting ck up any time after Jul 12, 2018 documented in this encounter Plan of Treatment Not on file documented as of this encounter Visit Diagnoses Not on filedocumented in this encounter Care Teams Order Clerk Relationship Specialty Start Date End Date Meghan Hicks MD PCP - General Internal Medicine 04/08/12 01/15/22 [facility], [facility] PCP - General Internal Medicine 01/16/22 03/05/22 Meghan Hicks MD PCP - General Internal Medicine 03/06/22 03/18/22 Andree Gonzalez MD PCP - General Internal Medicine 03/19/22 Beatrice Holloway MD Specialist Cardiology 07/31/21 documented as of this encounter
--- OUTSIDE RECORDS SUMMARY | 2024-11-20 11:21 | XMS_ITS | Encounter Summary ---
Author Organization [facility] Address [address] [place] [address] Care Team Providers Care Electrician Deck Name Role Phone Meghan Hicks MD Primary Care Provider UnaBeatrice Puente MD Unavailable [facility], [facility], [facility] Primary Care Provider Unavailabl Meghan Pereira MD Primary Care Provider Andree Stallworth MD Primary Care Provider Unavaila ble Reason for Referral * EXTERNAL (Routine) - Authorized/Booked Specialty Diagnoses / Procedures Referred By Contac t Referred To Contact Neurology Procedures REFERRAL TO NEUROLOGY Meghan Hicks MD [address] [place] [id number] External Neurology Referral ID Status Reason Start Date Expiration Date V isits Requested Visits Authorized SEE NOTE Authorized/B ooked 04/03/2018 07/05/2018 1 1 Encounter Details Date Type Department Care Team Description 03/31/2018 Pt. Non Urgent Medic al Question Medicine/Pediatrics - [address] [phone] Meghan Hicks MD Social History Tobacco Use [...] to be referred to Dr. Mina Pérez [facility]. [place] [address] phone #[phone]. I would like to get in next yr Ric so thought I should schedule now. Thank You Francine documented in this encounter Plan of Treatment Not on file documented as of this encounter Visit Diagnoses Not on filedocumented in this encounter Care Teams Electrician Deck Relationship Specialty Start Date End Date Meghan Hicks MD PCP - General Internal Medicine 04/08/12 01/15/22 [facility], [facility], Pcp PCP - General Internal Medicine 01/16/22 03/05/22 Meghan Hicks MD PCP - General Internal Medicine 03/06/22 03/18/22 Andree Gonzalez MD PCP - General Internal Medicine 03/19/22 Beatrice Holloway MD Specialist Cardiology 07/31/21 documented as of this encounter
--- OUTSIDE RECORDS SUMMARY | 2024-11-20 11:21 | XMS_ITS | Encounter Summary ---
Author Organization [facility] Address [address] [place] [address] Care Team Providers Care Superintendent Transmission Name Role Phone Meghan Hicks MD Primary Care Provider Beatrice Garvey MD Unavailable [facility], Pcp Primary Care Provider UnavailMeghan Jones MD Primary Care Provider UnaAndree Zapata MD Primary Care Provider Unavaila ble Encounter Details Date Type Department Care Team Description 02/04/2018 Orders Only Medical Records [address] [place] [address] Meghan Hicks MD LVH (left ventricular hypertrophy) [...] Cardiomegaly documented in this encounter Care Teams Superintendent Transmission Relationship Specialty Start Date End Date Meghan Hicks MD PCP - General Internal Medicine 04/08/12 01/15/22 [facility], Pcp PCP - General Internal Medicine 01/16/22 03/05/22 Meghan Hicks MD PCP - General Internal Medicine 03/06/22 03/18/22 Andree Gonzalez MD PCP - General Internal Medicine 03/19/22 Beatrice Holloway MD Specialist Cardiology 07/31/21 documented as of this encounter
--- OUTSIDE RECORDS SUMMARY | 2024-11-20 11:21 | XMS_ITS | Encounter Summary ---
Author Organization [facility] Address [address] [place] [address] Care Team Providers Care Joint Cutter Name Role Phone Mayo Donnelly MD Primary Care Provider [phone] Encounter Details Date Type Department Care Team (Late st Contact Info) Description 07/21/2024 Lab Requisition [facility] - Main Lab [address] [facility] [place] [address] Mayo Donnelly MD [address] [place] [phone] Encounter for other general examination Social History [...] AM EST) WBC 6.6 4.8 - 10.8 K/[facility] LAB HEMETOLOGY METHOD 07/21/2024 8:01 AM [facility] RBC 3.90 3.80 - 4.80 M/mcL LAB HEMETOLOGY METHOD 07/21/2024 8:01 AM [facility] Hemoglobin 9.4(L) 11.5 - 16.0 g/dL LAB HEMETOLOGY METHOD 07/21/2024 8:01 AM [facility] Hematocrit 31.3(L) 35.0 - 47.0 % LAB HEMETOLOGY METHOD 07/21/2024 8:01 AM [facility] MCV 80.3 79.0 - 98.0 FL LAB HEMETOLOGY METHOD 07/21/2024 8:01 AM [facility] MCH 24.1(L) 27.0 - 32.0 pcg LAB HEMETOLOGY METHOD 07/21/2024 8:01 AM [facility] MCHC 30.0(L) 32.0 - 37.0 g/dL LAB HEMETOLOGY METHOD 07/21/2024 8:01 AM [facility] RDW 15.4(H) 11.0 - 15.0 % LAB HEMETOLOGY METHOD 07/21/2024 8:01 AM [facility] Platelets 281 130 - 400 K/mcL LAB HEMETOLOGY METHOD 07/21/2024 8:01 AM [facility] MPV 10.5 7.0 - 11.0 FL LAB HEMETOLOGY METHOD 07/21/2024 8:01 AM [facility] NRBC 0.0 <1.0 % LAB HEMETOLOGY METHOD 07/21/2024 8:01 AM [facility] NRBC Absolute 0.00 <0.10 K/mcL LAB HEMETOLOGY METHOD 07/21/2024 8:01 AM [facility] Blood Venous blood specimen / Unknown Venipuncture / Unknown 07/21/2024 5:00 AM EST 07/21/2024 7:36 AM EST us Mayo Donnelly MD LAB BLOOD ORDERABLES Final Res ult [facility] [address] [place] [address], [place] [phone] * (ABNORMAL) Comprehensive metabolic panel (07/21/2024 5:00 AM EST) Sodium 133 133 - 145 mmol/L LAB CHEMISTRY METHOD 07/21/2024 8:49 AM [facility] Potassium 5.5 3.5 - 5.5 mmol/L LAB CHEMISTRY METHOD 07/21/2024 8:49 AM [facility] Chloride 103 96 - 110 mmol/L LAB CHEMISTRY METHOD 07/21/2024 8:49 AM [facility] CO2 24 21 - 32 mmol/L LAB CHEMISTRY METHOD 07/21/2024 8:49 AM [facility] Anion Gap 6 3 - 11 LAB CHEMISTRY METHOD 07/21/2024 8:49 AM [facility] Glucose 103(H) 70 - 100 mg/dL LAB CHEMISTRY METHOD 07/21/2024 8:49 AM [facility] BUN 54(H) 5 - 25 mg/dL LAB CHEMISTRY METHOD 07/21/2024 8:49 AM [facility] Comment:Results verified by repeat testing Creatinine 1.34(H) 0.50 - 1.10 mg/dL LAB CHEMISTRY METHOD 07/21/2024 8:49 AM [facility] eGFR 41(L) >=60 mL/min/1. 73m2 LAB CHEMISTRY METHOD 07/21/2024 8:49 AM [facility] Comment:Calculation based on the??Chronic Kidney Disease Epidemiology Collaboration (CKD-EPI) equation refit??without adjustment for race. BUN/Creatinine Ratio 40.3 LAB CHEMISTRY METHOD 07/21/2024 8:49 AM [facility] Calcium 9.8 8.5 - 10.5 mg/dL LAB CHEMISTRY METHOD 07/21/2024 8:49 AM [facility] AST (SGOT) 19 10 - 42 unit/L LAB CHEMISTRY METHOD 07/21/2024 8:49 AM [facility] ALT (SGPT) 16 10 - 60 unit/L LAB CHEMISTRY METHOD 07/21/2024 8:49 AM [facility] Alkaline Phosphatase 68 42 - 121 unit/L LAB CHEMISTRY METHOD 07/21/2024 8:49 AM [facility] Total Protein 6.8 6.0 - 8.0 g/dL LAB CHEMISTRY METHOD 07/21/2024 8:49 AM [facility] Albumin 3.5 3.2 - 5.0 g/dL LAB CHEMISTRY METHOD 07/21/2024 8:49 AM [facility] Total Bilirubin 0.3 0.0 - 1.4 mg/dL LAB CHEMISTRY METHOD 07/21/2024 8:49 AM [facility] Blood Venous blood specimen / Unknown Venipuncture / Unknown 07/21/2024 5:00 AM EST 07/21/2024 7:36 AM EST us Mayo Donnelly MD LAB BLOOD ORDERABLES Final Res ult [facility] [address] [place] [address], documented in this encounter Visit Diagnoses Diagnosis Encounter for other general examination documented in this encounter Care Teams Joint Cutter Relationship Specialty Start Date End Date Mayo Donnelly MD [address] [place] [phone] PCP - General Internal Medicine 11/06/24 documented as of this encounter
--- OUTSIDE RECORDS SUMMARY | 2024-11-20 11:21 | XMS_ITS | Encounter Summary ---
Author Organization [facility] Address [address] [place] [address] Care Team Providers Care Data Scientist Name Role Phone Mayo Donnelly MD Primary Care Provider [phone] Encounter Details Date Type Department Care Team (Late st Contact Info) Description 07/24/2024 Lab Requisition [facility] - Main Lab [address] [facility] [place] [address] Mayo Donnelly MD [address] [place] [phone] Encounter for other general examination Social History [...] AM EST) WBC 6.4 4.8 - 10.8 K/[facility] LAB HEMETOLOGY METHOD 07/24/2024 11:31 AM [facility] RBC 3.90 3.80 [...] MD LAB BLOOD ORDERABLES Final Res ult [facility] [address] [place] [address], [place] [phone] * (ABNORMAL) Comprehensive metabolic panel (07/24/2024 5:17 [...] MD LAB BLOOD ORDERABLES Final Res ult [facility] [address] [place] [address], documented in this encounter Visit Diagnoses Diagnosis Encounter for other general examination documented in this encounter Care Teams Data Scientist Relationship Specialty Start Date End Date Mayo Donnelly MD [address] [place] [id number] PCP - General Internal Medicine 11/06/24 documented as of this encounter
[2024-11-20 11:45] LABS: Basophils Percent Auto 0.3 % (0-2); Eosinophils Absolute Auto 0.2 X10*3/uL (0.0-0.4); Eosinophils Percent Auto 2.7 % (0-4); Hematocrit 33.2 % (37.0-47.0); Hemoglobin 10.3 g/dl (12.0-16.0); Imm Gran Abs Auto 0.01 X10*3/uL (0.00-0.03); Imm Gran Pct Auto 0.1 % (0.0-0.4); Lymphocytes Percent Auto 12.6 % (20-40); Mean Corpuscular Hemoglobin 22.5 pg (27.0-33.0); Mean Corpuscular Volume 72.5 fL (80.0-98.0); Mean Platelet Volume 9.8 fL (9.4-12.3); Monocytes Absolute Auto 0.4 X10*3/uL (0.1-1.2); Monocytes Percent Auto 5.4 % (2-11); Neutrophils Absolute Auto 6.1 x10*3/uL (2.0-8.3); Neutrophils Percent Auto 78.9 % (45-73); Platelet Count 389 X10*3/uL (160-400); Red Blood Count 4.58 X10*6/uL (4.20-5.50); Red Cell Distribution Width 20.1 % (11.0-16.0); White Blood Count 7.8 X10*3/uL (4.8-10.8)
[2024-11-20 12:21] LABS: Anion Gap 14 (12-20); Blood Urea Nitrogen 58 mg/dL (9-16); Calcium 10.6 mg/dL (8.4-10.2); Carbon Dioxide 24 mmol/L (22-29); Chloride 104 mmol/L (96-108); Estimated Glomerular Filt Rate 45; Glucose Random 95 mg/dL (60-115); Potassium 4.8 mmol/L (3.3-5.1); Sodium 137 mmol/L (135-145)
== END 2024-11-20 08:24 | disposition home or self-care (01) ==
LOC: HO.LAB 08:23
PROVIDERS: PCP Internal Medicine; Visit Provider Internal Medicine
DX: Z09 Encounter for follow-up examination after completed treatment for conditions other than malignant neoplasm (principal); A41.9 Sepsis, unspecified organism; G20.A2 Parkinson's disease without dyskinesia, with fluctuations; E11.42 Type 2 diabetes mellitus with diabetic polyneuropathy; R30.0 Dysuria; D64.9 Anemia, unspecified; Z86.73 Personal history of transient ischemic attack (TIA), and cerebral infarction without residual deficits; Z95.2 Presence of prosthetic heart valve; Z79.899 Other long term (current) drug therapy
CPT/HCPCS: 36415; 80048; 81001; 83036; 85025; 87040; 87086; 99212

== ENCOUNTER 2024-11-20 08:23 | Outpatient (AMB) | payer MEDICARE, SELFPAY ==
--- NOTE | 2024-11-20 08:29 | MHC.PC.OV ---
Vital Signs 11/20/24 08:41 Height 5 ft 2 in Weight 142 lb 4 oz BMI 26.0 BP 94/46 L Blood Pressure Location Rt brachial Position Sitting Respiration 14 Pulse 76 Pulse Source Pulse Oximeter Pulse Oximetry (%) 96 Oxygen Delivery Method Room Air Intake Visit Reasons: [facility] Intake Note: Hospital follow up. Dowel Machine Operator Required: No Allergies cefdinir Allergy (Unknown, Verified 11/20/24 08:35) Rash Sulfa (Sulfonamide Antibiotics) Allergy (Unknown, Verified 11/20/24 08:35) Itching trimethoprim Allergy (Unknown, Verified 11/20/24 08:35) Rash Medication List - Last Reconciled 11/20/24 by Andree Lindquist MD acetaminophen ER (Tylenol 8 Hour) 650 mg PO Q8H 90 days albuterol sulfate 90 mcg/actuation (Ventolin HFA) inhalation amlodipine 2.5 mg PO DAILY aspirin 81 mg PO DAILY blood sugar diagnostic (ProfistaStyle Precision Erasto Strips) E11.9 Use to test glucose twice daily. carbidopa-levodopa 25-100 mg 2 tabs PO TID [co Qu 300 PO] fenofibrate 54 mg PO DAILY furosemide (Lasix) 20 - 40 mg (1 - 2 x 20 mg) PO DAILY PRN gabapentin 300 mg PO BID glipizide 5 mg PO BID lorazepam 0.5 mg PO BID lorazepam (Ativan) 0.5 mg PO DAILY PRN losartan 50 mg PO DAILY magnesium oxide 250 mg PO DAILY multivitamin 1 tab PO DAILY pantoprazole 40 mg PO DAILY [probiotic PO] sertraline 100 mg PO DAILY 90 days tamsulosin 0.4 mg PO DAILY trospium 20 mg PO BID umeclidinium 62.5 mcg/actuation (Incruse Ellipta) 1 inh inhalation DAILY ursodiol 600 mg PO BID [vitamin d weekly] Tobacco use date assessed: 11/20/24 Dental Screening Dental Screen Date: 11/30/23 HPI HPI Comments History of Present Illness Details 79 y/o female with a past medical history of parkinsons, diabetes, depression, asthma/copd, OAB, recurrent UTI presenting for hospital discharge follow up 10/27-11/16/24. On 10/17 had botox to the bladder-[facility].. She developed a fever of 102 chills. Negative for COVID at that time. Developed some weakness and confusion. Daughter edil catheterized her. Went to [facility] in [place]. Urine and blood cultures were positive. She developed AUGUSTINE. She was fluid overloaded, BP was high. Increased losartan to 75 morning and added amlodipine. 148/70s this morning. She was hospitalized 07/11-07/15/24 at [facility]. She underwent scheduled TAVR for severe aortic stenosis. Dr Mchugh, Dr Nicholas. Course was complicated by CVA-she developed acute left sided weakness. MRI showed evidence of embolic CVA. She was discharged to [facility]. Still getting PT/OT/Speech. She has made good gains with therapy and has gotten a lot of mobility back. Neuro: Recent CVA as above. Saw [facility] neurology in September. Continues to follow with neurology for Parkinsons in [facility]. Stable parkinsons. CV: TAVR. Follow up cardiology -had Aug 07 and seeing again Aug 17 Depression is well controlled on sertraline Diabetes is well controlled on glipizide. On ARB. utd eye exam. A1C today is 6.3%. GI: Follows with Dr Pereira. History of biliary cirrhosis, diverticulosis. Sees 2x/year. Appt Aug 31. Uro: Following with urogynecology. Has appt with [facility] on Sep 04. Mammogram- ROS CONSTITUTIONAL: Denies weight loss, fever and chills. HEENT: Denies changes in vision and hearing. RESPIRATORY: Denies SOB and cough. CV: Denies palpitations and CP GI: Denies abdominal pain, nausea, vomiting and diarrhea. : Denies dysuria and urinary frequency. MSK: Denies new myalgia and joint pain. SKIN: Denies rash and pruritus. NEUROLOGICAL: Denies headache PSYCHIATRIC: Denies recent changes in mood. PHYSICAL EXAM: GENERAL: Alert and oriented x 3. NAD EYES: EOMI. Anicteric. HENT: Moist mucous membranes. No scleral icterus. No cervical lymphadenopathy. LUNGS: Clear to auscultation bilaterally. CARDIOVASCULAR: Regular rate and rhythm. No murmur. No JVD. ABDOMEN: Soft, non-tender +bs EXTREMITIES: No edema. Non-tender. SKIN: No rashes or lesions. Warm. NEUROLOGIC: Improving left sided weakness. resting tremor PSYCHIATRIC: Cooperative. Appropriate mood and affect [facility] Medical History Type 2 diabetes mellitus Spinal stenosis Seasonal allergies Parkinson disease Muscle cramps Moderate aortic stenosis (~11/30/23) Hypertension History of DVT (deep vein thrombosis) High cholesterol Frequent UTI Dysphagia COVID-19 Atypical chest pain Arthritis Anxiety Angina pectoris Surgical History S/P TVR (tricuspid valve replacement) Family History Father Substance abuse Alcoholism Social History Housing: Condominium Alcohol intake: former Patient Tobacco Use Status: Former Tobacco user Cigarette Packs Per Day: 1.5 Years Smoked: 34 years e-Cigarette/Vaping Use: Never Used Second Hand Smoke Exposure: Yes service: No Current occupational status: retired Cognitive needs: No Hearing needs: No Vision needs: Yes (reading glasses) Questionnaire Thrive Questionnaire Date Thrive assessed: 08/15/24 I am a: Parent/Caregiver What is your living situation today?: I have a steady place to live Within the past 12 months, did the food you bought not last and you didn't have the money to get more?: Never true Within the past 12 months, did you worry whether your food would run out before you got money to buy more?: Never true Do you have trouble paying for medicines?: No Do you have trouble getting transportation to medical appointments?: No Do you have trouble paying your heating and electricity bill?: I choose not to answer this question Do you have trouble taking care of your child, family member or friend?: No Do you have trouble with day-to-day activities such as bathing, preparing meals, shopping, managing finances, etc.?: No Are you currently unemployed and looking for a job?: No Are you interested in more education?: No Please select the resources that you would like help with: None Currently or been in a relationship where the following occur: No concerns reported THRIVE Score: 0 DREW-7 AMB Questionnaire DREW-7 Date DREW - 7 assessed: 11/30/23 Source: Developed by Drs. Eduardo Foss, Sara Mcclure, Pascual Willoughby and colleagues, with an educational jamee from [employer]. Physical exam (Primary Care) Tobacco/Smoking Status: Tobacco use Status Tobacco use date assessed 11/20/24 11/20/24 08:37 Patient Tobacco Use Status Former Tobacco user 11/20/24 08:32 e-Cigarette/Vaping Use Never Used 11/20/24 08:32 Thrive Assessment: Date of Thrive Assessment Date Thrive assessed 08/15/24 11/20/24 08:32 Currently or been in a relationship where the following occur: No concerns reported Results AMB Hemoglobin A1c AMB Hemoglobin A1c 6.3 % Last Edit by Afia Roman CMA on 11/20/24 08:55 Coding Level of Care Code TCM High MDM <= 14 days Diagnoses Hospital discharge follow-up Z09 Sepsis, due to unspecified organism, unspecified whether acute organ dysfunction present A41.9 Sepsis type: sepsis due to unspecified organism Sepsis acute organ dysfunction status: unspecified S/P TAVR (transcatheter aortic valve replacement) Z95.2 History of CVA (cerebrovascular accident) Z86.73 Parkinson's disease with fluctuating manifestations, unspecified whether dyskinesia present G20.A2 Dyskinesia presence: unspecified whether dyskinesia Fluctuating manifestations: with fluctuating manifestations Assessment & Plan Assessment & Plan (1) Hospital discharge follow-up: Code(s): Z09 - Encounter for follow-up examination after completed treatment for conditions other than malignant neoplasm Category: Medical (2) Sepsis: Code(s): A41.9 - Sepsis, unspecified organism Category: Medical Qualifiers: Sepsis type: sepsis due to unspecified organism Sepsis acute organ dysfunction status: unspecified Qualified Code(s): A41.9 - Sepsis, unspecified organism (3) S/P TAVR (transcatheter aortic valve replacement): Code(s): Z95.2 - Presence of prosthetic heart valve Category: Surgical (4) History of CVA (cerebrovascular accident): Code(s): Z86.73 - Personal history of transient ischemic attack (TIA), and cerebral infarction without residual deficits Category: Medical (5) Parkinson disease: Code(s): G20.A1 - Parkinson's disease without dyskinesia, without mention of fluctuations Category: Medical Qualifiers: Dyskinesia presence: unspecified whether dyskinesia Fluctuating manifestations: with fluctuating manifestations Qualified Code(s): G20.A2 - Parkinson's disease without dyskinesia, with fluctuations Plan 79 year old for hospital discharge follow up Notes requested but not received. History per family Recheck BMP stop daily lasix-move to prn. Decrease losartan to 50mg daily. continue amlodipine Recheck urine, blood cultures. Orders: Orders AMB Hemoglobin A1c Today E11.42 - Type 2 diabetes mellitus with diabetic polyneuropathy Blood Culture X2 Today A41.9 - Sepsis, unspecified organism, Z95.2 - Presence of prosthetic heart valve Basic Metabolic Panel Today A41.9 - Sepsis, unspecified organism, R30.0 - Dysuria Complete Blood Count Auto Diff Today D64.9 - Anemia, unspecified UA CC w/rflx Micro + Cult Today A41.9 - Sepsis, unspecified organism, Z95.2 - Presence of prosthetic heart valve Medications: New lorazepam 0.5 mg PO BID 60 tabs 3RF anxiety gabapentin 300 mg (3 x 100 mg) PO BID 180 caps 0RF losartan 50 mg PO DAILY 90 tabs 3RF furosemide (Lasix) 20 - 40 mg (1 - 2 x 20 mg) PO DAILY PRN 90 tabs 0RF edema
[2024-11-20 08:41] VITALS: BP 94/46; PULSE 76; RESP 14; O2SAT 96; BMI 26.0
== END 2024-11-20 09:09 | disposition home or self-care (01) ==
LOC: HO.HMCFM 08:24
PROVIDERS: PCP Internal Medicine; Visit Provider Internal Medicine
DX: E11.42 Type 2 diabetes mellitus with diabetic polyneuropathy (principal); A41.9 Sepsis, unspecified organism; G20.A2 Parkinson's disease without dyskinesia, with fluctuations; Z86.73 Personal history of transient ischemic attack (TIA), and cerebral infarction without residual deficits; Z09 Encounter for follow-up examination after completed treatment for conditions other than malignant neoplasm; Z95.2 Presence of prosthetic heart valve

== ENCOUNTER 2024-11-20 09:51 | Outpatient (REF) | payer MEDICARE, SELFPAY ==
--- OUTSIDE RECORDS SUMMARY | 2024-11-20 10:11 | XMS_ITS | Encounter Summary ---
Author Organization [facility] Address [address] [place] [address] Care Team Providers Care Publications Inspector Name Role Phone Meghan Hicks MD Primary Care Provider Unava Beatrice Silva MD Unavailable [facility], [facility] Primary Care Provider Unavailabl e Meghan Hicks MD Primary Care Provider Unava Andree Nicholas MD Primary Care Provider Unavaila ble Reason for Visit * Reason Onset Date Comments urination problems 12/14/2012 Encounter Details Date Type Department Care Team Description 12/14/2012 Telephone Urology [address] [place] [id number] Kenney Peraza MD urination problems Social History Tobacco Use Types Packs/Day Years Used Date Smoking Tobacco: Former Cigarettes 1.5 20 Q uit: 07/12/1998 Smokeless Tobacco: Never Alcohol Use Standard Drinks/Week Comments No 0 (1 standard drink = 0.6 oz pur e alcohol) Sex Assigned at Date Recorded Not on file Job Start Date Occupation Industry Not on file Not on file Not on file documented as of this encounter Miscellaneous Notes * Telephone Encounter - Kenney Peraza MD - 12/18/2012 5:42 PM EDT D/w pt. Ucx Ecoli sensitive bactrim given. Symtpoms resovled. Also dpw result of recent renal/bladder US = (mild pvr.) * Telephone Encounter - Gemma Stack - 12/14/2012 10:52 AM EDT PATIENT CALLED YOUR OFFICE IN [place] BECAUSE SHE SUSPECTED SHE HAD A UTI. SHE WAS GIVEN ANTIBIOTICS BY A PA AND WENT TO THE LAB AT [facility] FOR TEST. SHE WOULD LIKE TO KNOW HER TEST RESULTS. SHE WILL COMPLETE THE ANTIBIOTIC TREATMENT TOMORROW. SHE WOULD LIKE DR PERAZA TO CALL HER BACK AT [phone] documented in this encounter Plan of Treatment Not on file documented as of this encounter Visit Diagnoses Not on filedocumented in this encounter Care Teams Publications Inspector Relationship Specialty Start Date End Date Meghan Hicks MD PCP - General Internal Medicine 04/08/12 01/15/22 [facility] Pcp PCP - General Internal Medicine 01/16/22 03/05/22 Meghan Hicks MD PCP - General Internal Medicine 03/06/22 03/18/22 Andree Gonzalez MD PCP - General Internal Medicine 03/19/22 Beatrice Holloway MD Specialist Cardiology 07/31/21 documented as of this encounter
--- OUTSIDE RECORDS SUMMARY | 2024-11-20 10:11 | XMS_ITS | Encounter Summary ---
Author Organization [facility] Address [address] [place] [address] Care Team Providers Care News Librarian Name Role Phone Meghan Hicks MD Primary Care Provider Beatrice Garvey MD Unavailable [facility], [facility] Primary Care Provider UnavailMeghan Jones MD Primary Care Provider Andree Stallworth MD Primary Care Provider Unavaila ble Reason for Visit * Reason Onset Date Comments radiology 09/20/2015 Encounter Details Date Type Department Care Team Description 09/20/2015 Telephone Medicine/Pediatrics - [address] [phone] Meghan Hicks MD radiology Social History Tobacco Use Types Packs/Day Years [...] encounter Miscellaneous Notes * Telephone Encounter - Maddie Perdomo - 09/20/2015 8:30 AM EST Pt came in today to explain she would be going over to [facility] for an xray of her foot. She has an order from Dr. Mitzi Lowery, phone: [phone] for 09/20/15 of her right foot. I made a copy of this order and placed it in Dr. Hicks's mail box just in case. documented in this encounter Plan of Treatment Not on file documented as of this encounter Visit Diagnoses Not on filedocumented in this encounter Care Teams News Librarian Relationship Specialty Start Date End Date Meghan Hikcs MD PCP - General Internal Medicine 04/08/12 01/15/22 [facility], [facility] PCP - General Internal Medicine 01/16/22 03/05/22 Meghan Hicks MD PCP - General Internal Medicine 03/06/22 03/18/22 Andree Gonzalez MD PCP - General Internal Medicine 03/19/22 Beatrice Holloway MD Specialist Cardiology 07/31/21 documented as of this encounter
--- OUTSIDE RECORDS SUMMARY | 2024-11-20 10:11 | XMS_ITS | Encounter Summary ---
Author Organization [employer] Address [address] [place] [address] Care Team Providers Care Senior Maintenance Mechanic Name Role Phone Unavailable Primary Care [...] Description 02/21/2025 10:50 AM EDT Office [place] [facility] [place] [facility] [address] [place] [address] Krystal Ramesh documented as of this encounter Visit Diagnoses Not on filedocumented in this encounter Care Teams Senior Maintenance Mechanic Relationship Specialty Start Date End Date Dr. Meghan Hicks Primary Care Provider 08/17/[address] Andree Lindquist [facility] Primary Care [place], [place] Primary Care Provider 08/17/22 documented as of this encounter
--- OUTSIDE RECORDS SUMMARY | 2024-11-20 10:11 | XMS_ITS | Encounter Summary ---
Author Organization [facility] Address [address] [place] [address] Care Team Providers Care Neck Band Setter Name Role Phone Meghan Hicks MD Primary Care Provider Beatrice Garvey MD Unavailable [facility], Pcp Primary Care Provider Unavailabl e Meghan Hicks MD Primary Care Provider Andree Stallworth MD Primary Care Provider Unavaila narinder Encounter Details Date Type Department Care Team Description 11/18/2018 Customer Operations Associate Report Medical Records [address] [place], [place] [phone] [place] [address], [facility] Social History Tobacco Use Types Packs/Day Years [...] on filedocumented in this encounter Care Teams Neck Band Setter Relationship Specialty Start Date End Date Meghan Hicks MD PCP - General Internal Medicine 04/08/12 01/15/22 [facility], Pcp PCP - General Internal Medicine 01/16/22 03/05/22 Meghan Hicks MD PCP - General Internal Medicine 03/06/22 03/18/22 Andree Gonzalez MD PCP - General Internal Medicine 03/19/22 Beatrice Holloway MD Specialist Cardiology 07/31/21 documented as of this encounter
--- OUTSIDE RECORDS SUMMARY | 2024-11-20 10:11 | XMS_ITS | Encounter Summary ---
Author Organization [facility] Address [address] [place] [address] Care Team Providers Care Riding Coach Name Role Phone Meghan Hicks MD Primary Care Provider Beatrice Garvey MD Unavailable [facility], Pcp Primary Care Provider UnavailMeghan Jones MD Primary Care Provider Andree Stallworth MD Primary Care Provider Janene barcenas Encounter Details Date Type Department Care Team Description 09/18/2016 Pt. Non Urgent Medic al Question Medicine/Pediatrics - [address] [phone] Meghan Hicks MD Social History Tobacco Use Types Packs/Day Years [...] on file documented as of this encounter Progress Notes * Arlin Mccarthy L.P.N. - 09/18/2016 9:47 AM ESTFrom: Francine Pope To: Meghan Hicks MD Sent: 09/18/2016 8:00 AM EST Subject: Eye exam My routine eye exam was sep 07 documented in this encounter Plan of Treatment Not on file documented as of this encounter Visit Diagnoses Not on filedocumented in this encounter Care Teams Riding Coach Relationship Specialty Start Date End Date Meghan Hicks MD PCP - General Internal Medicine 04/08/12 01/15/22 [facility], Pcp PCP - General Internal Medicine 01/16/22 03/05/22 Meghan Hicks MD PCP - General Internal Medicine 03/06/22 03/18/22 Andree Gonzalez MD PCP - General Internal Medicine 03/19/22 Beatrice Holloway MD Specialist Cardiology 07/31/21 documented as of this encounter
--- OUTSIDE RECORDS SUMMARY | 2024-11-20 10:11 | XMS_ITS | Encounter Summary ---
Author Organization [facility] Address [address] [place] [address] Care Team Providers Care Community Marketing Manager Name Role Phone Meghan Hicks MD Primary Care Provider Beatrice Garvey MD Unavailable [facility], Pcp Primary Care Provider UnavailMeghan Jones MD Primary Care Provider Andree Stallworth MD Primary Care Provider Janene barcenas Encounter Details Date Type Department Care Team Description 01/29/2016 Pt. Non Urgent Medic al Question Medicine/Pediatrics - [address] [phone] Meghan Hicks MD Social History Tobacco Use [...] Progress Notes * Arlin Mccarthy L.P.N. - 01/29/2016 8:52 AM EDTFrom: Francine Pope To: Meghan Hicks MD Sent: 01/29/2016 8:14 AM EDT Subject: Hand tremors At my physical we talked about the hand tremors they are worse now do I need to add a test before my next patrick? I will be doing blood work about February 13 patrick February 16 documented in this encounter Plan of Treatment Not on file documented as of this encounter Visit Diagnoses Not on filedocumented in this encounter Care Teams Community Marketing Manager Relationship Specialty Start Date End Date Meghan Hicks MD PCP - General Internal Medicine 04/08/12 01/15/22 [facility]cp PCP - General Internal Medicine 01/16/22 03/05/22 Meghan Hicks MD PCP - General Internal Medicine 03/06/22 03/18/22 Andree Gonzalez MD PCP - General Internal Medicine 03/19/22 Beatrice Holloway MD Specialist Cardiology 07/31/21 documented as of this encounter
--- OUTSIDE RECORDS SUMMARY | 2024-11-20 10:11 | XMS_ITS | Encounter Summary ---
Author Organization [facility] Address [address] [place] [address] Care Team Providers Care Graphic Design Manager Name Role Phone Meghan Hicks MD Primary Care Provider Beatrice Garvey MD Unavailable [facility], Pcp Primary Care Provider Unavailabl e Meghan Hicks MD Primary Care Provider Andree Stallworth MD Primary Care Provider Unavaila narinder Encounter Details Date Type Department Care Team Description 09/11/2016 Slusher Operator Report Medical Records [address] [place] [address] Meseret Hernandes PA-C Social History Tobacco Use Types Packs/Day Years [...] on filedocumented in this encounter Care Teams Graphic Design Manager Relationship Specialty Start Date End Date Meghan Hicks MD PCP - General Internal Medicine 04/08/12 01/15/22 [facility], Pcp PCP - General Internal Medicine 01/16/22 03/05/22 Meghan Hicks MD PCP - General Internal Medicine 03/06/22 03/18/22 Andree Gonzalez MD PCP - General Internal Medicine 03/19/22 Beatrice Holloway MD Specialist Cardiology 07/31/21 documented as of this encounter
--- OUTSIDE RECORDS SUMMARY | 2024-11-20 10:11 | XMS_ITS | Encounter Summary ---
Author Organization [facility] Address [address] [place] [address] Care Team Providers Care Facilities Administrator Name Role Phone Meghan Hicks MD Primary Care Provider Beatrice Garvey MD Unavailable [facility], Pcp Primary Care Provider Unavailabl e Meghan Hicks MD Primary Care Provider Andree Stallworth MD Primary Care Provider Unavaila ble Encounter Details Date Type Department Care Team Description 07/17/2012 Hospital Medical Records [address] [place] [address] Lester Brady MD [address] [place] [id number] Social History Tobacco Use Types Packs/Day Years [...] on filedocumented in this encounter Care Teams Facilities Administrator Relationship Specialty Start Date End Date Meghan Hicks MD PCP - General Internal Medicine 04/08/12 01/15/22 [facility], Pcp PCP - General Internal Medicine 01/16/22 03/05/22 Meghan Hicks MD PCP - General Internal Medicine 03/06/22 03/18/22 Andree Gonzalez MD PCP - General Internal Medicine 03/19/22 Beatrice Holloway MD Specialist Cardiology 07/31/21 documented as of this encounter
--- OUTSIDE RECORDS SUMMARY | 2024-11-20 10:11 | XMS_ITS | Encounter Summary ---
Author Organization [facility] Address [address] [place] [address] Care Team Providers Care Automatic Grinding Machine Operator Name Role Phone Meghan Hicks MD Primary Care Provider Beatrice Garvey MD Unavailable [facility], Pcp Primary Care Provider Meghan Chacko MD Primary Care Provider Andree Stallworth MD Primary Care Provider Janene barcenas Encounter Details Date Type Department Care Team Description 10/01/2014 Pt. Non Urgent Medic al Question Medicine/Pediatrics - [address] [phone] Meghan Hicks MD Social History Tobacco Use [...] as of this encounter Progress Notes * Anna Phoenix Rn - 10/01/2014 8:47 AM EDTFrom: Francine Montesspringever To: Meghan Hicks MD Sent: 10/01/2014 8:05 AM EDT Subject: Medications The zeta is an expensive medication tier 3. The medication atorvastatin 40 mg is ok tier 1 documented in this encounter Plan of Treatment Not on file documented as of this encounter Visit Diagnoses Not on filedocumented in this encounter Care Teams Automatic Grinding Machine Operator Relationship Specialty Start Date End Date Meghan Hicks MD PCP - General Internal Medicine 04/08/12 01/15/22 [facility], Pcp PCP - General Internal Medicine 01/16/22 03/05/22 Meghan Hicks MD PCP - General Internal Medicine 03/06/22 03/18/22 Andree Gonzalez MD PCP - General Internal Medicine 03/19/22 Beatrice Holloway MD Specialist Cardiology 07/31/21 documented as of this encounter
--- OUTSIDE RECORDS SUMMARY | 2024-11-20 10:11 | XMS_ITS | Encounter Summary ---
Author Organization [facility] Address [address] [place] [address] Care Team Providers Care Ecological Technical Officer Name Role Phone Mayo Donnelly MD Primary Care Provider [phone] Encounter Details Date Type Department Care Team (Late st Contact Info) Description 08/01/2024 Lab Requisition [facility] - Main Lab [address] [facility] [place] [address] Mayo Donnelly MD [address] [place] [id number] Encounter for other general examination Social History [...] AM EST) WBC 11.1(H) 4.8 - 10.8 K/[facility] LAB HEMETOLOGY METHOD 08/01/2024 10:45 AM [facility] LAB RBC 3.80 3.80 - 4.80 M/[facility] LAB HEMETOLOGY METHOD 08/01/2024 10:45 AM [facility] LAB Hemoglobin 9.3(L) 11.5 - 16.0 [...] ult [facility] [address] [place] [address], [place] [phone] * (ABNORMAL) Comprehensive metabolic panel (08/01/2024 4:56 AM EST) Sodium 136 133 - 145 mmol/L LAB CHEMISTRY METHOD 08/01/2024 11:16 AM EST [facility] LAB [...] ult [facility] [address] [place] [address], documented in this encounter Visit Diagnoses Diagnosis Encounter for other general examination documented in this encounter Care Teams Ecological Technical Officer Relationship Specialty Start Date End Date Mayo Donnelly MD [address] [place] [id number] PCP - General Internal Medicine 11/06/24 documented as of this encounter
--- OUTSIDE RECORDS SUMMARY | 2024-11-20 10:11 | XMS_ITS | Encounter Summary ---
Author Organization [facility] Address [address] [place] [address] Care Team Providers Care Networking Engineer Name Role Phone Meghan Hicks MD Primary Care Provider Beatrice Garvey MD Unavailable [facility], Pcp Primary Care Provider UnavailMeghan Jones MD Primary Care Provider Andree Stallworth MD Primary Care Provider Unavailnathaly barcenas Encounter Details Date Type Department Care Team Description 01/09/2015 Business Doc Medical Records [address] [place] [id number] Abstract, Provider Social History Tobacco Use Types Packs/Day Years [...] on filedocumented in this encounter Care Teams Networking Engineer Relationship Specialty Start Date End Date Meghan Hicks MD PCP - General Internal Medicine 04/08/12 01/15/22 [facility], Pcp PCP - General Internal Medicine 01/16/22 03/05/22 Meghan Hicks MD PCP - General Internal Medicine 03/06/22 03/18/22 Andree Gonzalez MD PCP - General Internal Medicine 03/19/22 Beatrice Holloway MD Specialist Cardiology 07/31/21 documented as of this encounter
--- OUTSIDE RECORDS SUMMARY | 2024-11-20 10:11 | XMS_ITS | Encounter Summary ---
Author Organization [facility] Address [address] [place] [address] Care Team Providers Care Hospital Scientist Name Role Phone Mayo Donnelly MD Primary Care Provider [phone] Encounter Details Date Type Department Care Team (Late st Contact Info) Description 11/06/2024 Lab Requisition [facility] - Main Lab [address] [place] [address] Mayo Donnelly MD [address] [place] [address] Encounter for other general examination Social History [...] Procedure Name Priority Date/Time Associated Diagnosis Comments MAGNESIUM Routine 11/06/2024 6:24 AM EDT Encounter for other general examination documented in this encounter Results * (ABNORMAL) Magnesium (11/06/2024 6:24 AM EDT) Magnesium 1.6(L) 1.9 - 2.6 mg/dL LAB CHEMISTRY METHOD 11/06/2024 12:59 PM EDT [facility] Blood Venous blood specimen / Unknown Venipuncture / Unknown 11/06/2024 6:24 AM EDT 11/06/2024 10:07 AM EDT us Mayo Donnelly MD LAB BLOOD ORDERABLES Final Res ult Performing Organization Address City/State/[facility] Co de Phone Number [facility] [address] [place] [address], documented in this encounter Visit Diagnoses Diagnosis Encounter for other general examination documented in this encounter Care Teams Hospital Scientist Relationship Specialty Start Date End Date Mayo Donnelly MD [address] [place] [phone] PCP - General Internal Medicine 11/06/24 documented as of this encounter
--- OUTSIDE RECORDS SUMMARY | 2024-11-20 10:11 | XMS_ITS | Encounter Summary ---
Author Organization [facility] Address [address] [place] [address] Care Team Providers Care Bonsai Tender Name Role Phone Meghan Hicks MD Primary Care Provider Beatrice Garvey MD Unavailable [facility], Pcp Primary Care Provider Unavailbrown e Meghan Hicks MD Primary Care Provider Andree Stallworth MD Primary Care Provider Unavailnathaly barcenas Encounter Details Date Type Department Care Team Description 01/05/2017 Release of Information Medical Records [address] [place] [id number] Abstract, Provider Social History Tobacco Use Types [...] on filedocumented in this encounter Care Teams Bonsai Tender Relationship Specialty Start Date End Date Meghan Hicks MD PCP - General Internal Medicine 04/08/12 01/15/22 [facility], Pcp PCP - General Internal Medicine 01/16/22 03/05/22 Meghan Hicks MD PCP - General Internal Medicine 03/06/22 03/18/22 Andree Gonzalez MD PCP - General Internal Medicine 03/19/22 Beatrice Holloway MD Specialist Cardiology 07/31/21 documented as of this encounter
--- OUTSIDE RECORDS SUMMARY | 2024-11-20 10:11 | XMS_ITS | Encounter Summary ---
Author Organization [facility] Address [address] [place] [address] Care Team Providers Care Hot Mill Tin Roller Name Role Phone Mayo Donnelly MD Primary Care Provider [phone] Encounter Details Date Type Department Care Team (Late st Contact Info) Description 11/13/2024 Lab Requisition [facility] - Main Lab [address] [facility] [employer] [address] Mayo Donnelly MD [address] [place] [phone] Encounter for other general examination Social History [...] Diagnosis Comments CBC WITH AUTO DIFFERENTIAL Routine 11/13/2024 6:23 AM EDT Encounter for other general examination CBC AND DIFFERENTIAL Routine 11/13/2024 6:23 AM EDT Encounter for other general examination BASIC METABOLIC PANEL Routine 11/13/2024 6:23 AM EDT Encounter for other general examination documented in this encounter Results * (ABNORMAL) CBC auto differential (11/13/2024 6:23 AM EDT) [facility] WBC 7.0 4.8 - 10.8 K/mcL LAB HEMETOLOGY METHOD 11/13/2024 1:11 PM [facility] RBC 4.00 3.80 - 4.80 M/mcL LAB HEMETOLOGY METHOD 11/13/2024 1:[facility] PM [facility] Hemoglobin 8.9(L) 11.5 - 16.0 g/dL LAB HEMETOLOGY METHOD 11/13/2024 1:11 PM [facility] Hematocrit 29.8(L) 35.0 - 47.0 % LAB HEMETOLOGY METHOD 11/13/2024 1:11 PM [facility] MCV 74.5(L) 79.0 - 98.0 FL LAB HEMETOLOGY METHOD 11/13/2024 1:11 PM [facility] MCH 22.3(L) 27.0 - 32.0 pcg LAB HEMETOLOGY METHOD 11/13/2024 1:11 PM [facility] MCHC 29.9(L) 32.0 - 37.0 g/dL LAB HEMETOLOGY METHOD 11/13/2024 1:11 PM [facility] RDW 19.4(H) 11.0 - 15.0 % LAB HEMETOLOGY METHOD 11/13/2024 1:11 PM [facility] Platelets 474(H) 130 - 400 K/mcL LAB HEMETOLOGY METHOD 11/13/2024 1:11 PM [facility] MPV 9.7 7.0 - 11.0 FL LAB HEMETOLOGY METHOD 11/13/2024 1:11 PM [facility] NRBC 0.0 <1.0 % LAB HEMETOLOGY METHOD 11/13/2024 1:11 PM [facility] NRBC Absolute 0.00 <0.10 K/mcL LAB HEMETOLOGY METHOD 11/13/2024 1:11 PM [facility] Neutrophils Relative 67.0 % LAB HEMETOLOGY METHOD 11/13/2024 1:11 PM [facility] Lymphocytes Relative 21.2 % LAB HEMETOLOGY METHOD 11/13/2024 1:11 PM [facility] Monocytes Relative 8.4 % LAB HEMETOLOGY METHOD 11/13/2024 1:11 PM [facility] Eosinophils Relative 2.3 % LAB HEMETOLOGY METHOD 11/13/2024 1:11 PM [facility] Basophils Relative 0.7 % LAB HEMETOLOGY METHOD 11/13/2024 1:11 PM [facility] Immature Granulocytes Relative 0.4 % LAB HEMETOLOGY METHOD 11/13/2024 1:11 PM [facility] Neutrophils Absolute 4.68 1.50 - 7.00 K/mcL LAB HEMETOLOGY METHOD 11/13/2024 1:11 PM [facility] Lymphocytes Absolute 1.48 1.00 - 5.00 K/mcL LAB HEMETOLOGY METHOD 11/13/2024 1:11 PM [facility] Monocytes Absolute 0.59 0.20 - 1.00 K/mcL LAB HEMETOLOGY METHOD 11/13/2024 1:11 PM [facility] Eosinophils Absolute 0.16 0.00 - 0.50 K/mcL LAB HEMETOLOGY METHOD 11/13/2024 1:11 PM [facility] Basophils Absolute 0.05 0.00 - 0.20 K/mcL LAB HEMETOLOGY METHOD 11/13/2024 1:11 PM [facility] Immature Granulocytes Absolute 0.03 0.00 - 0.03 K/mcL LAB HEMETOLOGY METHOD 11/13/2024 1:11 PM [facility] Blood Venous blood specimen / Unknown Venipuncture / Unknown 11/13/2024 6:23 AM EDT 11/13/2024 10:11 AM EDT us Mayo Donnelly MD LAB BLOOD ORDERABLES Final Res ult [facility] [address] [place] [address], [place] [phone] * (ABNORMAL) Basic metabolic panel (11/13/2024 6:23 AM EDT) Sodium 135 133 - 145 mmol/L LAB CHEMISTRY METHOD 11/13/2024 1:09 PM [facility] Potassium 5.1 3.5 - 5.5 mmol/L LAB CHEMISTRY METHOD 11/13/2024 1:09 PM [facility] Chloride 103 96 - 110 mmol/L LAB CHEMISTRY METHOD 11/13/2024 1:09 PM [facility] CO2 23 21 - 32 mmol/L LAB CHEMISTRY METHOD 11/13/2024 1:09 PM [facility] Anion Gap 9 3 - 11 LAB CHEMISTRY METHOD 11/13/2024 1:09 PM [facility] Glucose 105(H) 70 - 100 mg/dL LAB CHEMISTRY METHOD 11/13/2024 1:09 PM [facility] BUN 34(H) 5 - 25 mg/dL LAB CHEMISTRY METHOD 11/13/2024 1:09 PM [facility] Creatinine 1.04 0.50 - 1.10 mg/dL LAB CHEMISTRY METHOD 11/13/2024 1:09 PM [facility] eGFR 55(L) >=60 mL/min/1. 73m2 LAB CHEMISTRY METHOD 11/13/2024 1:09 PM [facility] Comment:Calculation based on the??Chronic Kidney Disease Epidemiology Collaboration (CKD-EPI) equation refit??without adjustment for race. BUN/Creatinine Ratio 32.7 LAB CHEMISTRY METHOD 11/13/2024 1:09 PM EDT [facility] Calcium 9.6 8.5 - 10.5 mg/dL LAB CHEMISTRY METHOD 11/13/2024 1:09 PM EDT [facility] Blood Venous blood specimen / Unknown Venipuncture / Unknown 11/13/2024 6:23 AM EDT 11/13/2024 10:11 AM EDT us Mayo Donnelly MD LAB BLOOD ORDERABLES Final Res ult [facility] [address] [place] [address], [place] [phone] documented in this encounter Visit Diagnoses Diagnosis Encounter for other general examination documented in this encounter Care Teams Hot Mill Tin Roller Relationship Specialty Start Date End Date Mayo Donnelly MD [address] [place] [phone] PCP - General Internal Medicine 11/06/24 documented as of this encounter
--- OUTSIDE RECORDS SUMMARY | 2024-11-20 10:11 | XMS_ITS | Encounter Summary ---
Author Organization [facility] Address [address] [place] [address] Care Team Providers Care Wafer Batter Mixer Name Role Phone Meghan Hicks MD Primary Care Provider Beatrice Garvey MD Unavailable [facility], Pcp Primary Care Provider Unavailbrown e Meghan Hicks MD Primary Care Provider Andree Stallworth MD Primary Care Provider Unavaila ble Encounter Details Date Type Department Care Team Description 09/21/2012 Transfer Records Medical Records [address] [place] [id number] [place] [phone] [id number] Social History Tobacco Use Types Packs/Day Years [...] on filedocumented in this encounter Care Teams Wafer Batter Mixer Relationship Specialty Start Date End Date Meghan Hicks MD PCP - General Internal Medicine 04/08/12 01/15/22 [facility], Pcp PCP - General Internal Medicine 01/16/22 03/05/22 Meghan Hicks MD PCP - General Internal Medicine 03/06/22 03/18/22 Andree Gonzalez MD PCP - General Internal Medicine 03/19/22 Beatrice Holloway MD Specialist Cardiology 07/31/21 documented as of this encounter
--- OUTSIDE RECORDS SUMMARY | 2024-11-20 10:11 | XMS_ITS | Encounter Summary ---
Author Organization [facility] Address [address] [place] [address] Care Team Providers Care Primary Care Pediatrician Name Role Phone Mayo Donnelly MD Primary Care Provider [phone] Encounter Details Date Type Department Care Team (Late st Contact Info) Description 07/27/2024 Lab Requisition [facility] - Main Lab [address] [facility] [employer] [place] [address] Mayo Donnelly MD [address] [place] [address] Encounter for other general examination Social History [...] AM EST) WBC 6.5 4.8 - 10.8 K/[facility] LAB HEMETOLOGY METHOD 07/27/2024 11:45 AM [facility] LAB RBC 3.80 3.80 - 4.80 M/mcL LAB HEMETOLOGY METHOD 07/27/2024 11:45 AM [facility] LAB Hemoglobin 9.2(L) 11.5 - 16.0 g/dL LAB HEMETOLOGY METHOD 07/27/2024 11:45 AM [facility] LAB Hematocrit 30.8(L) 35.0 - 47.0 % LAB HEMETOLOGY METHOD 07/27/2024 11:45 AM [facility] LAB MCV 81.7 79.0 - 98.0 FL LAB HEMETOLOGY METHOD 07/27/2024 11:45 AM [facility] LAB MCH 24.4(L) 27.0 - 32.0 pcg LAB HEMETOLOGY METHOD 07/27/2024 11:45 AM [facility] LAB MCHC 29.9(L) 32.0 - 37.0 g/dL LAB HEMETOLOGY METHOD 07/27/2024 11:45 AM [facility] LAB RDW 15.8(H) 11.0 - 15.0 % LAB HEMETOLOGY METHOD 07/27/2024 11:45 AM [facility] LAB Platelets 318 130 - 400 K/mcL LAB HEMETOLOGY METHOD 07/27/2024 11:45 AM [facility] LAB MPV 10.3 7.0 - 11.0 FL LAB HEMETOLOGY METHOD 07/27/2024 11:45 AM [facility] LAB NRBC 0.0 <1.0 % LAB HEMETOLOGY METHOD 07/27/2024 11:45 AM [facility] LAB NRBC Absolute 0.00 <0.10 K/mcL LAB HEMETOLOGY METHOD 07/27/2024 11:45 AM [facility] Blood Venous blood specimen / Unknown Venipuncture / Unknown 07/27/2024 6:45 AM EST 07/27/2024 10:56 AM EST us Mayo Donnelly MD LAB BLOOD ORDERABLES Final Res ult [facility] [address] [place] [address], [place] [phone] * (ABNORMAL) Comprehensive metabolic panel (07/27/2024 6:45 AM EST) Sodium 134 133 - 145 mmol/L LAB CHEMISTRY METHOD 07/27/2024 2:10 PM EST [facility] Potassium 5.2 3.5 - 5.5 mmol/L LAB CHEMISTRY METHOD 07/27/2024 2:10 PM [facility] Chloride 107 96 - 110 mmol/L LAB CHEMISTRY METHOD 07/27/2024 2:10 PM [facility] CO2 20(L) 21 - 32 mmol/L LAB CHEMISTRY METHOD 07/27/2024 2:10 PM [facility] Anion Gap 7 3 - 11 LAB CHEMISTRY METHOD 07/27/2024 2:10 PM [facility] Glucose 101(H) 70 - 100 mg/dL LAB CHEMISTRY METHOD 07/27/2024 2:10 PM [facility] BUN 43(H) 5 - 25 mg/dL LAB CHEMISTRY METHOD 07/27/2024 2:10 PM [facility] Creatinine 0.99 0.50 - 1.10 mg/dL LAB CHEMISTRY METHOD 07/27/2024 2:10 PM [facility] LAB eGFR 59(L) >=60 mL/min/1. 73m2 LAB CHEMISTRY METHOD 07/27/2024 2:10 PM [facility] LAB Comment:Calculation based on the??Chronic Kidney Disease Epidemiology Collaboration (CKD-EPI) equation refit??without adjustment for race. BUN/Creatinine Ratio 43.4 LAB CHEMISTRY METHOD 07/27/2024 2:10 PM [facility] Calcium 9.4 8.5 - 10.5 mg/dL LAB CHEMISTRY METHOD 07/27/2024 2:10 PM [facility] AST (SGOT) 23 10 - 42 unit/L LAB CHEMISTRY METHOD 07/27/2024 2:10 PM [facility] ALT (SGPT) 16 10 - 60 unit/L LAB CHEMISTRY METHOD 07/27/2024 2:10 PM [facility] Alkaline Phosphatase 65 42 - 121 unit/L LAB CHEMISTRY METHOD 07/27/2024 2:10 PM [facility] Total Protein 6.4 6.0 - 8.0 g/dL LAB CHEMISTRY METHOD 07/27/2024 2:10 PM [facility] Albumin 3.5 3.2 - 5.0 g/dL LAB CHEMISTRY METHOD 07/27/2024 2:10 PM [facility] Total Bilirubin 0.2 0.0 - 1.4 mg/dL LAB CHEMISTRY METHOD 07/27/2024 2:10 PM [facility] Blood Venous blood specimen / Unknown Venipuncture / Unknown 07/27/2024 6:45 AM EST 07/27/2024 10:56 AM EST us Mayo Donnelly MD LAB BLOOD ORDERABLES Final Res ult [facility] [address] [place] [address], documented in this encounter Visit Diagnoses Diagnosis Encounter for other general examination documented in this encounter Care Teams Primary Care Pediatrician Relationship Specialty Start Date End Date Mayo Donnelly MD [address] [place] [address] PCP - General Internal Medicine 11/06/24 documented as of this encounter
--- OUTSIDE RECORDS SUMMARY | 2024-11-20 10:11 | XMS_ITS | Encounter Summary ---
Author Organization [facility] Address [address] [place] [address] Care Team Providers Care Ice Delivery Driver Name Role Phone Meghan Hicks MD Primary Care Provider Beatrice Garvey MD Unavailable [facility], [facility] Primary Care Provider UnavailMeghan Jones MD Primary Care Provider Andree Stallworth MD Primary Care Provider Unavailnathaly barcenas Encounter Details Date Type Department Care Team Description 07/22/2012 Orders Only Medicine/Pediatrics - [address] [address] Meghan Hicks MD DVT, lower extremity (Primary Dx); Encounter for long-term (current) use of anticoagulants Social History Tobacco Use Types Packs/Day Years [...] Procedure Name Priority Date/Time Associated Diagnosis Comments ACCLINIC (ANTICOAGULATION THERAPY MANAGEMEN Routine 07/22/2012 4:42 PM EST DVT, lower extremity Encounter for long-term (current) use of anticoagulants documented in this encounter Visit Diagnoses Diagnosis DVT, lower extremity (HCC)- Primary Acute venous embolism and thrombosis of unspecified deep vessels of lower extremity intermediate teacher (current) use of anticoagulants Long-term (current) use of anticoagulants documented in this encounter Care Teams Ice Delivery Driver Relationship Specialty Start Date End Date Meghan Hicks MD PCP - General Internal Medicine 04/08/12 01/15/22 [facility], Pcp PCP - General Internal Medicine 01/16/22 03/05/22 Meghan Hicks MD PCP - General Internal Medicine 03/06/22 03/18/22 Andree Gonzalez MD PCP - General Internal Medicine 03/19/22 Beatrice Holloway MD Specialist Cardiology 07/31/21 documented as of this encounter
--- OUTSIDE RECORDS SUMMARY | 2024-11-20 10:11 | XMS_ITS | Encounter Summary ---
Author Organization [facility] Address [address] [place] [address] Care Team Providers Care Preschool Substitute Teacher Name Role Phone Meghan Hicks MD Primary Care Provider Beatrice Garvey MD Unavailable [facility], Pcp Primary Care Provider Unavailabl e Meghan Hicks MD Primary Care Provider Andree Stallworth MD Primary Care Provider Unavaila ble Encounter Details Date Type Department Care Team Description 03/20/2016 Corporate Strategist Report Medical Records [address] [place] [id number] Mica Summers PA-C Social History Tobacco Use Types Packs/Day [...] on filedocumented in this encounter Care Teams Preschool Substitute Teacher Relationship Specialty Start Date End Date Meghan Hicks MD PCP - General Internal Medicine 04/08/12 01/15/22 [facility], Pcp PCP - General Internal Medicine 01/16/22 03/05/22 Meghan Hicks MD PCP - General Internal Medicine 03/06/22 03/18/22 Andree Gonzalez MD PCP - General Internal Medicine 03/19/22 Beatrice Holloway MD Specialist Cardiology 07/31/21 documented as of this encounter
--- OUTSIDE RECORDS SUMMARY | 2024-11-20 10:11 | XMS_ITS | Clinical Summary ---
Author Organization [facility] Address [address] [facility] [address] [place] [address] Care Team Providers Care Early Childhood Name Role Phone Unavailable Primary Care Provider Unavailabl e Allergies Active Allergy Reactions Criticality Noted Date Comments Cefdinir Unknown 07/02/2022 Sulfa Antibiotics Unknown 07/02/2022 Trimethoprim Unknown 07/02/2022 Medications Umeclidinium [place] (INCRUSE E[place]IP[place]) Incruse Ellipta Ac tive [...] Used Date Smoking Tobacco: Former Cigarettes 1 7 - 1996 Tobacco Cessation:Counseling Given: Not Answered [...] Description 02/21/2025 10:50 AM EDT Office Visit [facility] [address] [place] [address] Krystal Ramesh Health Maintenance Due Date Last [...] Relevant to Health Maintenance Insurance # [address] [place] [address] MEDICARE [facility] MEDEX CARE DENTAL - HSN FULL (MEDICAID) Care Teams Early Childhood Relationship Specialty Start Date End Date Dr. Andree Lindquist [facility] Care [place], [place] Primary Care Provider 08/17/22
--- OUTSIDE RECORDS SUMMARY | 2024-11-20 10:11 | XMS_ITS | Encounter Summary ---
Author Organization [facility] Address [address] [place] [address] Care Team Providers Care Referral Clerk Name Role Phone Mayo Donnelly MD Primary Care Provider [phone] Encounter Details Date Type Department Care Team (Late st Contact Info) Description 11/07/2024 Lab Requisition [facility] - Main Lab [address] [facility] [place] [address] Mayo Donnelly MD [address] [place] [phone] Encounter for other general examination Social History [...] Diagnosis Comments CBC WITH AUTO DIFFERENTIAL Routine 11/07/2024 6:56 AM EDT Encounter for other general examination CBC AND DIFFERENTIAL Routine 11/07/2024 6:56 AM EDT Encounter for other general examination BASIC METABOLIC PANEL Routine 11/07/2024 6:56 AM EDT Encounter for other general examination documented in this encounter Results * (ABNORMAL) CBC auto differential (11/07/2024 6:56 AM EDT) [facility] WBC 9.2 4.8 - 10.8 K/mcL LAB HEMETOLOGY METHOD 11/07/2024 10:49 AM [facility] RBC 3.60(L) 3.80 - 4.80 M/mcL LAB HEMETOLOGY METHOD 11/07/2024 10:49 AM [facility] Hemoglobin 8.0(L) 11.5 - 16.0 g/dL LAB HEMETOLOGY METHOD 11/07/2024 10:49 AM [facility] Hematocrit 26.7(L) 35.0 - 47.0 % LAB HEMETOLOGY METHOD 11/07/2024 10:49 AM [facility] MCV 74.2(L) 79.0 - 98.0 FL LAB HEMETOLOGY METHOD 11/07/2024 10:49 AM [facility] MCH 22.2(L) 27.0 - 32.0 pcg LAB HEMETOLOGY METHOD 11/07/2024 10:49 AM [facility] MCHC 30.0(L) 32.0 - 37.0 g/dL LAB HEMETOLOGY METHOD 11/07/2024 10:49 AM [facility] RDW 19.9(H) 11.0 - 15.0 % LAB HEMETOLOGY METHOD 11/07/2024 10:49 AM [facility] Platelets 468(H) 130 - 400 K/mcL LAB HEMETOLOGY METHOD 11/07/2024 10:49 AM [facility] MPV 9.4 7.0 - 11.0 FL LAB HEMETOLOGY METHOD 11/07/2024 10:49 AM [facility] NRBC 0.0 <1.0 % LAB HEMETOLOGY METHOD 11/07/2024 10:49 AM [facility] NRBC Absolute 0.00 <0.10 K/mcL LAB HEMETOLOGY METHOD 11/07/2024 10:49 AM [facility] Neutrophils Relative 73.4 % LAB HEMETOLOGY METHOD 11/07/2024 10:49 AM [facility] Lymphocytes Relative 14.6 % LAB HEMETOLOGY METHOD 11/07/2024 10:49 AM [facility] Monocytes Relative 8.4 % LAB HEMETOLOGY METHOD 11/07/2024 10:49 AM [facility] Eosinophils Relative 2.6 % LAB HEMETOLOGY METHOD 11/07/2024 10:49 AM [facility] Basophils Relative 0.2 % LAB HEMETOLOGY METHOD 11/07/2024 10:49 AM [facility] Immature Granulocytes Relative 0.8 % LAB HEMETOLOGY METHOD 11/07/2024 10:49 AM [facility] Neutrophils Absolute 6.72 1.50 - 7.00 K/mcL LAB HEMETOLOGY METHOD 11/07/2024 10:49 AM [facility] Lymphocytes Absolute 1.34 1.00 - 5.00 K/mcL LAB HEMETOLOGY METHOD 11/07/2024 10:49 AM [facility] Monocytes Absolute 0.77 0.20 - 1.00 K/mcL LAB HEMETOLOGY METHOD 11/07/2024 10:49 AM [facility] Eosinophils Absolute 0.24 0.00 - 0.50 K/mcL LAB HEMETOLOGY METHOD 11/07/2024 10:49 AM [facility] Basophils Absolute 0.02 0.00 - 0.20 K/mcL LAB HEMETOLOGY METHOD 11/07/2024 10:49 AM [facility] Immature Granulocytes Absolute 0.07(H) 0.00 - 0.03 K/mcL LAB HEMETOLOGY METHOD 11/07/2024 10:49 AM EDT [facility] Blood Venous blood specimen / Unknown Venipuncture / Unknown 11/07/2024 6:56 AM EDT 11/07/2024 9:48 AM EDT us Mayo Donnelly MD LAB BLOOD ORDERABLES Final Res ult [facility] [address] [place] [address], * Basic metabolic panel (11/07/2024 6:56 AM EDT) Sodium 141 133 - 145 mmol/L LAB CHEMISTRY METHOD 11/07/2024 12:18 PM [facility] Potassium 4.7 3.5 - 5.5 mmol/L LAB CHEMISTRY METHOD 11/07/2024 12:18 PM [facility] Chloride 105 96 - 110 mmol/L LAB CHEMISTRY METHOD 11/07/2024 12:18 PM [facility] CO2 26 21 - 32 mmol/L LAB CHEMISTRY METHOD 11/07/2024 12:18 PM [facility] Anion Gap 10 3 - 11 LAB CHEMISTRY METHOD 11/07/2024 12:18 PM [facility] Glucose 98 70 - 100 mg/dL LAB CHEMISTRY METHOD 11/07/2024 12:18 PM [facility] BUN 23 5 - 25 mg/dL LAB CHEMISTRY METHOD 11/07/2024 12:18 PM [facility] Creatinine 0.90 0.50 - 1.10 mg/dL LAB CHEMISTRY METHOD 11/07/2024 12:18 PM [facility] eGFR 66 >=60 mL/min/1. 73m2 LAB CHEMISTRY METHOD 11/07/2024 12:18 PM [facility] Comment:Calculation based on the??Chronic Kidney Disease Epidemiology Collaboration (CKD-EPI) equation refit??without adjustment for race. BUN/Creatinine Ratio 25.6 LAB CHEMISTRY METHOD 11/07/2024 12:18 PM EDT [facility] Calcium 9.2 8.5 - 10.5 mg/dL LAB CHEMISTRY METHOD 11/07/2024 12:18 PM EDT [facility] Blood Venous blood specimen / Unknown Venipuncture / Unknown 11/07/2024 6:56 AM EDT 11/07/2024 9:48 AM EDT us Mayo Donnelly MD LAB BLOOD ORDERABLES Final Res ult [facility] [address] [place] [address], [place] [phone] documented in this encounter Visit Diagnoses Diagnosis Encounter for other general examination documented in this encounter Care Teams Referral Clerk Relationship Specialty Start Date End Date Mayo Donnelly MD [address] [place] [address] PCP - General Internal Medicine 11/06/24 documented as of this encounter
--- OUTSIDE RECORDS SUMMARY | 2024-11-20 10:11 | XMS_ITS | Clinical Summary ---
Author Organization [address] Address [address] [place] [address] Phone Care Team Providers Care Shuttle Fitting Supervisor Name Role Phone Mayo Donnelly MD Primary Care Provider [phone] Encounters Date Type Department Care Team Description 11/13/2024 Lab Requisition [facility] [address] [place] [address] Mayo Donnelly MD Encounter for other general examination 11/07/2024 Lab Requisition [facility] [address] [place] [address] Mayo Donnelly MD Encounter for other general examination 11/06/2024 Lab Requisition [facility] [address] [place] [address] Mayo Donnelly MD Encounter for other general examination 11/03/2024 Lab Requisition [facility] [address] [place] [address] Mayo Donnelly MD Encounter for other general [...] Medical History Date Comments Primary biliary cirrhosis (C MS/HCC V24, CMS/HCC V28) 01/26/2011 DX:Primary biliary cirrhosis (HCC); COMMENT: Dr. Forbes is GI Hyperlipidemia 01/26/2011 DX:Hyperlipidemi a Cough variant asthma 01/26/2011 DX:Cough va riant asthma Osteopenia 01/26/2011 DX:Osteopenia Diastolic dysfunction 01/26/2011 DX:Diastol ic dysfunction LBP (low back pain) 01/26/2011 DX:LBP (low back pain); COMMENT: dr. logan, no intervention, Dr. Santana at [facility] Diverticulitis 07/12/2006 DX:Diverticuliti s; COMMENT: sig resection [...] COMMENT: post op 07/21/2012 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 [facility]/HCC V24, [facility]/HCC V28) 09/19/2012 DX:Granulomatous lung diseas e (HCC) Hypertension 02/16/2011 DX:Hypertension DM type 2, uncontrolled, wit h renal complications 11/23/2011 DX:DM type 2, uncontrolled, with renal complications; COMMENT: microalbuminuria Cataracts, bilateral 03/25/2015 DX:Cataract s, bilateral; COMMENT: Outside eye exam 05/14/2014 Dr. 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CMS/HCC V24, CMS/HCC V28) 11/28/2012 DX:Diabetes mellitus type 2 with neurological manifestations (HCC); COMMENT: PMH of carpal tunnel Type 2 diabetes mellitus wit h cataract ([facility] V24, [facility] V28) 03/25/2015 DX:Type 2 diabetes mellitus with cataract (HCC); COMMENT: Cataracts Parkinson disease ([facility] V 24, [facility] V28) 10/16/2015 DX:Parkinson disease (HCC) Closed fracture of right dis sona radius [...] (Age mid 70's) thro at cancer, emphysema ([employer]) Mother (Age mid 70's) Sister 1 Sister [...] Patients (1 - 1-dose 75+ series) 10/19/2022 Medicare Annual Wellness Visit 08/04/2023 08/04/2022 COVID-19 Vaccine ( season) 2024 05/28/2021, 09/26/2020, 09/05/2020 Influenza Vaccine (Season Ended) 2025 05/19/2023, 06/08/2022, 05/26/2021, Additional history exists Diabetes: Annual GFR (Glomerular Filtration Rate) 11/13/2025 11/13/2024, 11/07/2024, 11/03/2024, Additional history exists Hypertension/CHF/CAD Annual BMP Blood Test 11/13/2025 11/13/2024, 11/07/2024, 11/03/2024, Additional history exists Pneumococcal Vaccine: 50+ Years [...] age to complete this topic Meningococcal B Vaccine Aged Out No l onger eligible based on patient's age to complete [...] EDT Encounter for other general examination CBC WITH AUTO DIFFERENTIAL Routine 11/07/2024 6:56 AM EDT Encounter for other general examination CBC AND DIFFERENTIAL Routine 11/07/2024 6:56 AM EDT Encounter for other general examination BASIC METABOLIC PANEL Routine 11/07/2024 6:56 AM EDT Encounter for other general examination MAGNESIUM Routine 11/06/2024 6:24 AM EDT Encounter for other general examination CBC WITH AUTO DIFFERENTIAL Routine 11/03/2024 7:06 AM EDT Encounter for other general examination MAGNESIUM Routine 11/03/2024 7:06 AM EDT Encounter for other general examination CBC AND DIFFERENTIAL Routine 11/03/2024 7:06 AM EDT Encounter for other general examination COMPREHENSIVE METABOLIC PANEL Routine 11/03/2024 7:06 AM EDT Encounter for other general examination SCREENING MAMMOGRAPHY BI 2-VIEW BREAST INC CAD Routine 09/08/2021 9:58 AM EST Encounter for screening mammogram for malignant neoplasm of breast from Last 3 Months or Most Recently Relevant to Health Maintenance Results * (ABNORMAL) CBC auto differential (11/13/2024 6:23 AM EDT) Only the most recent of3 resultswithin the time period is included. WBC 7.0 4.8 - 10.8 K/mcL LAB HEMETOLOGY METHOD 11/13/2024 1:11 PM [facility] RBC 4.00 3.80 - 4.80 M/mcL LAB HEMETOLOGY METHOD 11/13/2024 1:11 PM [facility] Hemoglobin 8.9(L) 11.5 - 16.0 g/dL LAB HEMETOLOGY METHOD 11/13/2024 1:11 PM [facility] Hematocrit 29.8(L) 35.0 - 47.0 % LAB HEMETOLOGY METHOD 11/13/2024 1:11 PM [facility] MCV 74.5(L) 79.0 - 98.0 FL LAB HEMETOLOGY METHOD 11/13/2024 1:11 PM [facility] MCH 22.3(L) 27.0 - 32.0 pcg LAB HEMETOLOGY METHOD 11/13/2024 1:11 PM [facility] MCHC 29.9(L) 32.0 - 37.0 g/dL LAB HEMETOLOGY METHOD 11/13/2024 1:11 PM [facility] RDW 19.4(H) 11.0 - 15.0 % LAB HEMETOLOGY METHOD 11/13/2024 1:11 PM [facility] Platelets 474(H) 130 - 400 K/[facility] LAB HEMETOLOGY METHOD 11/13/2024 1:11 PM [facility] MPV 9.7 7.0 - 11.0 FL LAB HEMETOLOGY METHOD 11/13/2024 1:11 PM [facility] NRBC 0.0 <1.0 % LAB HEMETOLOGY METHOD 11/13/2024 1:11 PM [facility] NRBC Absolute 0.00 <0.10 K/[facility] LAB HEMETOLOGY METHOD 11/13/2024 1:11 PM [facility] Neutrophils Relative 67.0 % LAB HEMETOLOGY METHOD 11/13/2024 1:11 PM [facility] Lymphocytes Relative 21.2 % LAB HEMETOLOGY METHOD 11/13/2024 1:11 PM [facility] Monocytes Relative 8.4 % LAB HEMETOLOGY METHOD 11/13/2024 1:11 PM [facility] Eosinophils Relative 2.3 % LAB HEMETOLOGY METHOD 11/13/2024 1:11 PM [facility] Basophils Relative 0.7 % LAB HEMETOLOGY METHOD 11/13/2024 1:11 PM [facility] Immature Granulocytes Relative 0.4 % LAB HEMETOLOGY METHOD 11/13/2024 1:11 PM [facility] Neutrophils Absolute 4.68 1.50 - 7.00 K/mcL LAB HEMETOLOGY METHOD 11/13/2024 1:11 PM [facility] Lymphocytes Absolute 1.48 1.00 - 5.00 K/mcL LAB HEMETOLOGY METHOD 11/13/2024 1:11 PM [facility] Monocytes Absolute 0.59 0.20 - 1.00 K/mcL LAB HEMETOLOGY METHOD 11/13/2024 1:11 PM [facility] Eosinophils Absolute 0.16 0.00 - 0.50 K/mcL LAB HEMETOLOGY METHOD 11/13/2024 1:11 PM [facility] Basophils Absolute 0.05 0.00 - 0.20 K/mcL LAB HEMETOLOGY METHOD 11/13/2024 1:11 PM [facility] Immature Granulocytes Absolute 0.03 0.00 - 0.03 K/mcL LAB HEMETOLOGY METHOD 11/13/2024 1:11 PM [facility] Blood Venous blood specimen / Unknown Venipuncture / Unknown 11/13/2024 6:23 AM EDT 11/13/2024 10:11 AM EDT Mayo Donnelly MD LAB BLOOD ORDERABLES Final Res ult [facility] [address] [place] [address], [place] [phone] * (ABNORMAL) Basic metabolic panel (11/13/2024 6:23 AM EDT) Only the most recent of2 resultswithin the time period is included. Sodium 135 133 - 145 mmol/L LAB CHEMISTRY METHOD 11/13/2024 1:09 PM [facility] Potassium 5.1 3.5 - 5.5 mmol/L LAB CHEMISTRY METHOD 11/13/2024 1:09 PM [facility] Chloride 103 96 - 110 mmol/L LAB CHEMISTRY METHOD 11/13/2024 1:09 PM [facility] CO2 23 21 - 32 mmol/L LAB CHEMISTRY METHOD 11/13/2024 1:09 PM [facility] Anion Gap 9 3 - 11 LAB CHEMISTRY METHOD 11/13/2024 1:09 PM [facility] Glucose 105(H) 70 - 100 mg/dL LAB CHEMISTRY METHOD 11/13/2024 1:09 PM [facility] BUN 34(H) 5 - 25 mg/dL LAB CHEMISTRY METHOD 11/13/2024 1:09 PM [facility] Creatinine 1.04 0.50 - 1.10 mg/dL LAB CHEMISTRY METHOD 11/13/2024 1:09 PM [facility] eGFR 55(L) >=60 mL/min/1. 73m2 LAB CHEMISTRY METHOD 11/13/2024 1:09 PM [facility] Comment:Calculation based on the??Chronic Kidney Disease Epidemiology Collaboration (CKD-EPI) equation refit??without adjustment for race. BUN/Creatinine Ratio 32.7 LAB CHEMISTRY METHOD 11/13/2024 1:09 PM EDT [facility] Calcium 9.6 8.5 - 10.5 mg/dL LAB CHEMISTRY METHOD 11/13/2024 1:09 PM EDT [facility] Blood Venous blood specimen / Unknown Venipuncture / Unknown 11/13/2024 6:23 AM EDT 11/13/2024 10:11 AM EDT us Mayo Donnelly MD LAB BLOOD ORDERABLES Final Res ult Performing Organization Address [facility] Co de Phone Number [facility] [address] [place] [address], [place] [phone] * (ABNORMAL) Magnesium (11/06/2024 6:24 AM EDT) Only the most recent of2 resultswithin the time period is included. Magnesium 1.6(L) 1.9 - 2.6 mg/dL LAB CHEMISTRY METHOD 11/06/2024 12:59 PM EDT [facility] Blood Venous blood specimen / Unknown Venipuncture / Unknown 11/06/2024 6:24 AM EDT 11/06/2024 10:07 AM EDT Mayo Donnelly MD LAB BLOOD ORDERABLES Final Res ult Performing Organization Address City/[facility]/ZIP Co de Phone Number [facility] [address] [place] [address], [place] [phone] * (ABNORMAL) Comprehensive metabolic panel (11/03/2024 7:06 AM EDT) Sodium 136 133 - 145 mmol/L LAB CHEMISTRY METHOD 11/03/2024 11:45 AM EDT [facility] Potassium 4.3 3.5 - 5.5 mmol/L LAB CHEMISTRY METHOD 11/03/2024 11:45 AM [facility] Chloride 103 96 - 110 mmol/L LAB CHEMISTRY METHOD 11/03/2024 11:45 AM [facility] CO2 26 21 - 32 mmol/L LAB CHEMISTRY METHOD 11/03/2024 11:45 AM [facility] Anion Gap 7 3 - 11 LAB CHEMISTRY METHOD 11/03/2024 11:45 AM [facility] Glucose 112(H) 70 - 100 mg/dL LAB CHEMISTRY METHOD 11/03/2024 11:45 AM [facility] BUN 24 5 - 25 mg/dL LAB CHEMISTRY METHOD 11/03/2024 11:45 AM [facility] Creatinine 0.81 0.50 - 1.10 mg/dL LAB CHEMISTRY METHOD 11/03/2024 11:45 AM [facility] eGFR 75 >=60 mL/min/1. 73m2 LAB CHEMISTRY METHOD 11/03/2024 11:45 AM [facility] Comment:Calculation based on the??Chronic Kidney Disease Epidemiology Collaboration (CKD-EPI) equation refit??without adjustment for race. BUN/Creatinine Ratio 29.6 LAB CHEMISTRY METHOD 11/03/2024 11:45 AM [facility] Calcium 8.3(L) 8.5 - 10.5 mg/dL LAB CHEMISTRY METHOD 11/03/2024 11:45 AM [facility] AST (SGOT) 22 10 - 42 unit/L LAB CHEMISTRY METHOD 11/03/2024 11:45 AM [facility] ALT (SGPT) 8(L) 10 - 60 unit/L LAB CHEMISTRY METHOD 11/03/2024 11:45 AM [facility] Alkaline Phosphatase 102 42 - 121 unit/L LAB CHEMISTRY METHOD 11/03/2024 11:45 AM [facility] Total Protein 5.7(L) 6.0 - 8.0 g/dL LAB CHEMISTRY METHOD 11/03/2024 11:45 AM EDT [facility] Albumin 2.4(L) 3.2 - 5.0 g/dL LAB CHEMISTRY METHOD 11/03/2024 11:45 AM EDT [facility] Total Bilirubin 0.6 0.0 - 1.4 mg/dL LAB CHEMISTRY METHOD 11/03/2024 11:45 AM EDT [facility] Blood Venous blood specimen / Unknown Venipuncture / Unknown 11/03/2024 7:06 AM EDT 11/03/2024 9:36 AM EDT us Mayo Donnelly MD LAB BLOOD ORDERABLES Final Res ult [facility] [address] [place] [address], * SCREENING MAMMOGRAPHY BI 2-VIEW BREAST INC CAD (09/08/2021 9:58 AM EST) Anatomical Region Laterality Modality Radiographic Graciela ging 09/02/2020 1:0 5 PM EST Narrative 09/09/2021 12:28 PM EST [...] Most Recently Relevant to Health Maintenance Insurance [address] [place] [address] MEDICARE [facility] MEDICAID - [place] Advance Directives Documents on File Type Date Recorded Patient Contract Mail Carrier Expl anation Health Care Decision (hx) 07/13/2012 AD RAYGOZA DIRECTIVE Health Care Decision (hx) 07/13/2012 AD RAYGOZA DIRECTIVE Health Care Decision (hx) 07/13/2012 AD RAYGOZA DIRECTIVE Health Care Decision (hx) 07/13/2012 AD RAYGOZA DIRECTIVE Care Teams Shuttle Fitting Supervisor Relationship Specialty Start Date End Date Mayo Donnelly MD [address] [place] [phone] PCP - General Internal Medicine 11/06/24
--- OUTSIDE RECORDS SUMMARY | 2024-11-20 10:11 | XMS_ITS | Encounter Summary ---
Author Organization [facility] Address [address] [place] [address] Care Team Providers Care Program Management Intern Name Role Phone Meghan Hicks MD Primary Care Provider Beatrice Garvey MD Unavailable [facility], Pcp Primary Care Provider UnavailMeghan Jones MD Primary Care Provider Andree Stallworth MD Primary Care Provider Unavailnathaly barcenas Encounter Details Date Type Department Care Team Description 09/30/2018 Pt. Non Urgent Medic al Question Medicine/Pediatrics - [address] [phone] Meghan Hicks MD Social History Tobacco Use [...] Progress Notes * Arlin Mccarthy L.P.N. - 09/30/2018 8:36 AM EDTFrom: Francine Pope To: Meghan Hicks MD Sent: 09/30/2018 6:14 AM EDT Subject: MRI and speech pathologist It's been a week I have not heard from anyone about either patrick speech or MRI whom am I suppose to contact to see what the holdup is with my ins as long as they are ordered by a dr and they take Medicare I will not be denied is the way it was explained to me I can double ck if necessary documented in this encounter Plan of Treatment Not on file documented as of this encounter Visit Diagnoses Not on filedocumented in this encounter Care Teams Program Management Intern Relationship Specialty Start Date End Date Meghan Hicks MD PCP - General Internal Medicine 04/08/12 01/15/22 [facility] PCP - General Internal Medicine 01/16/22 03/05/22 Meghan Hicks MD PCP - General Internal Medicine 03/06/22 03/18/22 Andree Gonzalez MD PCP - General Internal Medicine 03/19/22 Beatrice Holloway MD Specialist Cardiology 07/31/21 documented as of this encounter
--- OUTSIDE RECORDS SUMMARY | 2024-11-20 10:11 | XMS_ITS | Encounter Summary ---
Author Organization [facility] Address [address] [place] [address] Care Team Providers Care Gameplay Programmer Name Role Phone Meghan Hicks MD Primary Care Provider Beatrice Garvey MD Unavailable [facility] Primary Care Provider UnavailMeghan Jones MD Primary Care Provider Andree Stallworth MD Primary Care Provider Unavaila ble Encounter Details Date Type Department Care Team Description 04/19/2015 Orders Only Medicine/Pediatrics - [address] [phone] Sierra Cota PA-C Paresthesia (Primary Dx) Social History Tobacco Use Types [...] on file documented as of this encounter Results * LYME POLYVALENT AB SCREEN (04/19/2015 4:22 PM EDT) LYME DISEASE ANTIBODIES NEGATIVE NEGATIVE 04/22/2015 10:07 AM EDT [facility] 04/19/2015 4:22 PM EDT 04/19/2015 4:22 PM EDT Sierra Cota PA-C LAB [facility] documented in this encounter Visit Diagnoses Diagnosis Paresthesia- Primary Disturbance of skin sensation documented in this encounter Care Teams Gameplay Programmer Relationship Specialty Start Date End Date Meghan Hicks MD PCP - General Internal Medicine 04/08/12 01/15/22 [facility] PCP - General Internal Medicine 01/16/22 03/05/22 Meghan Hicks MD PCP - General Internal Medicine 03/06/22 03/18/22 Andree Gonzalez MD PCP - General Internal Medicine 03/19/22 Beatrice Holloway MD Specialist Cardiology 07/31/21 documented as of this encounter
--- OUTSIDE RECORDS SUMMARY | 2024-11-20 10:11 | XMS_ITS | Encounter Summary ---
Author Organization [facility] Address [address] [place] [address] Care Team Providers Care Centerless Grinder Operator Name Role Phone Meghan Hicks MD Primary Care Provider UnaBeatrice Puente MD Unavailable [facility], [facility] Primary Care Provider UnavailMeghan Jones MD Primary Care Provider Andree Stallworth MD Primary Care Provider Unavaila ble Reason for Referral * EXTERNAL (Routine) - Authorized/Booked Specialty Diagnoses / Procedures Referred By Contbonny t Referred To Contact Speech Therapy Procedures REFERRAL TO SPEECH THERAPY Meghan Hicks MD [address] [place] [id number] External Speech Ther Referral ID Status Reason Start Date Expiration Date V isits Requested Visits Authorized SEE NOTE Authorized/B ooked 10/24/2018 01/24/2019 1 1 Reason for Visit * Reason Onset Date Comments Jack Tamp Operator Feedback 10/17/2018 Speech Therapy Encounter Details Date Type Department Care Team Description 10/17/2018 Telephone Medicine/Pediatrics - [address] [phone] Meghan Hicks MD Jack Tamp Operator Feedback (Speech Therapy) Social History Tobacco Use Types Packs/Day Years [...] encounter Miscellaneous Notes * Telephone Encounter - Nicole Ying - 10/24/2018 9:[address] Hicks, [facility] calling back, stated order needs to say parkinsons and modified barium swallow. I have pended you a new order. Please review and sign. Thank you, Nicole Cline Referrals Department * Telephone Encounter - Meghan Hicks MD - 2018 9:50 AM EDT Diagnosis is Parkinson's disease * Telephone Encounter - Nicole Ying - 2018 9:[address] Hicks, I called office again to schedule and now they are asking for a specific diagnosis. They can not use swallowing assessment or speech eval for billing purposes. Please advise. Thank you, Nicole Cline Referrals Department * Telephone Encounter - Meghan Hicks MD - 10/18/2018 12:23 PM EDT Modified barium swallow. * Telephone Encounter - Nicole Ying - 10/17/2018 4:[address] Hicks, You placed a speech therapy order for patient to be seen by Peggy Chisholm. I called office and they are asking if this is a modified barium swallow or a bedside swallow. Please advise so we can schedule patient an appointment. Thank you, Nicole Cline Referrals Department documented in this encounter Plan of Treatment Not on file documented as of this encounter Visit Diagnoses Not on filedocumented in this encounter Care Teams Centerless Grinder Operator Relationship Specialty Start Date End Date Meghan Hicks MD PCP - General Internal Medicine 04/08/12 01/15/22 [facility], Pcp PCP - General Internal Medicine 01/16/22 03/05/22 Meghan Hicks MD PCP - General Internal Medicine 03/06/22 03/18/22 Andree Gonzalez MD PCP - General Internal Medicine 03/19/22 Beatrice Holloway MD Specialist Cardiology 07/31/21 documented as of this encounter
--- OUTSIDE RECORDS SUMMARY | 2024-11-20 10:11 | XMS_ITS | Encounter Summary ---
Author Organization [facility] Address [address] [place] [address] Care Team Providers Care Twisting Machine Operator Name Role Phone SenAndree Ayoub Primary Care Provider [phone] Encounter Details Date Type Department Care Team (Late st Contact Info) Description 11/20/2024 Liqueohart Message [facility] [address] [place] [address] Drafter Heating And Ventilating: Paulette Lopes, Christen Dodd MD [address] [place] [address] [facility] Social History Tobacco Use Types Packs/Day Years Used Date Smoking Tobacco: Former Cigarettes 1 45 1 954 - 1998 Smokeless Tobacco: Never Alcohol Use Standard Drinks/Week Comments Not Currently 0 (1 standard drink = 0.6 oz pur e alcohol) [facility] Utilities Answer Date Recorded In the past 12 months has [employer], gas, oil, or water [employer] threatened to shut off services in your home? No 10/28/2024 Hunger Vital Sign Answer Date Recorded Within the past 12 months, y ou worried that your food would run out before you got the money to buy more. Never true 10/29/19 25 Within the past 12 months, t he food you bought just didn't last and you didn't have money to get more. Never true 10/28/2024 Transportation Answer Date Recorded In the past 12 months, has l ack of reliable transportation kept you from medical appointments, meetings, work or from getting things needed for daily living? No 10/28/2024 Housing Answer Date Recorded Housing Risk Low 2 10/28/2024 Housing Risk Medium Not on file 10/28/2024 Housing Risk High Not on file 10/28/2024 What is your living situation today? [facility] 10/28/2024 Comments No Sex and Gender Information Value Date Recorded Sex Assigned at Female 07/21/2023 1:37 PM EST Legal Sex Female 4:19 AM EDT Gender Identity Female 07/21/2023 1:37 PM EST Sexual Orientation Choose not to disclose 2023 1:37 PM EST documented as of this encounter Plan of Treatment Upcoming Encounters Date Type Department Care Team (Late st Contact Info) Description 12/07/2024 8:15 AM EDT Follow-Up [facility] [address] [place] [phone] Drafter Heating And Ventilating: Christen Dempsey MD [address] [place] [address] 06/20/2025 10:45 AM EST Follow-Up [facility] [address] [address] Drafter Heating And Ventilating: Christen Dempsey MD [address] [place] [address] documented as of this encounter Visit Diagnoses Not on filedocumented in this encounter Care Teams Twisting Machine Operator Relationship Specialty Start Date End Date Ameena Andree PCP - General Family Medicine 03/26/23 documented as of this encounter
--- OUTSIDE RECORDS SUMMARY | 2024-11-20 10:11 | XMS_ITS | Encounter Summary ---
Author Organization [facility] Address [address] [place] [address] Care Team Providers Care Financial Compliance Examiner Name Role Phone Meghan Hicks MD Primary Care Provider Beatrice Garvey MD Unavailable [facility], Pcp Primary Care Provider Unavailabl e Meghan Hicks MD Primary Care Provider Andree Stallworth MD Primary Care Provider Unavailnathaly barcenas Encounter Details Date Type Department Care Team Description 07/13/2012 [facility] Medical Records [address] [place] [address] Titus Salcido PA Social History Tobacco Use Types Packs/Day Years [...] on filedocumented in this encounter Care Teams Financial Compliance Examiner Relationship Specialty Start Date End Date Meghan Hicks MD PCP - General Internal Medicine 04/08/12 01/15/22 [facility], Pcp PCP - General Internal Medicine 01/16/22 03/05/22 Meghan Hicks MD PCP - General Internal Medicine 03/06/22 03/18/22 Andree Gonzalez MD PCP - General Internal Medicine 03/19/22 Beatrice Holloway MD Specialist Cardiology 07/31/21 documented as of this encounter
--- OUTSIDE RECORDS SUMMARY | 2024-11-20 10:11 | XMS_ITS | Encounter Summary ---
Author Organization [facility] Address [address] [place] [address] Care Team Providers Care Finance Consultant Name Role Phone Mayo Donnelly MD Primary Care Provider [phone] Encounter Details Date Type Department Care Team (Late st Contact Info) Description 07/26/2024 Lab Requisition [facility] - Main Lab [address] [facility] [place] [address] Mayo Donnelly MD [address] [place] [address] Encounter for other general examination Social History [...] Escherichia coli(A) YARED 07/29/2024 8:22 AM EST [facility] Culture, Urine 10,000-49,000 CFU/mL Enterococcus faecalis(A) YARED 07/29/2024 8:22 AM EST [facility] Comment: The organism value for this result has been updated. These results have been appended to the previously preliminary verified report. Edited result: Previously reported as Gram Positive Cocci on 07/28/2024 at 1053 EST. Urine Urine specimen obtained by clean catch procedure / Unknown 07/25/2024 6:02 PM EST 07/26/2024 12:[address] [facility] - 07/29/2024 8:22 AM EST [...] MICROBIOLOGY - GENERAL ORD ERABLES Final Result [facility] [address] [place] [address], [place] [phone] * (ABNORMAL) Urinalysis with reflex microscopic and culture (07/25/2024 6:02 PM EST) Specific [place] Urine 1.025 1.003 - 1.030 LAB URINALYSIS [...] ORDERABLES Final Res ult Performing Organization Address City/[facility]/ZIP Co de Phone Number [facility] [address] [place] [address], [place] [phone] * Ceron urine culture tube (07/25/2024 6:02 PM EST) Extra Tube Hold for add-ons. 07/26/2024 1:01 PM EST [facility] Comment:Auto resulted. Urine Urine specimen obtained by clean catch procedure / Unknown 07/25/2024 6:02 PM EST 07/26/2024 11:14 AM EST us Mayo Donnelly MD LAB URINE ORDERABLES Final Res ult [facility] [address] [place] [address], [place] [phone] documented in this encounter Visit Diagnoses Diagnosis Encounter for other general examination documented in this encounter Care Teams Finance Consultant Relationship Specialty Start Date End Date Mayo Donnelly MD [address] [place] [address] PCP - General Internal Medicine 11/06/24 documented as of this encounter
--- OUTSIDE RECORDS SUMMARY | 2024-11-20 10:11 | XMS_ITS | Encounter Summary ---
Author Organization [facility] Address [address] [place] [address] Care Team Providers Care High School Foreign Language Teacher Name Role Phone Meghan Hicks MD Primary Care Provider Beatrice Garvey MD Unavailable [facility] Primary Care Provider Unavailbrown e Meghan Hicks MD Primary Care Provider Andree Stallworth MD Primary Care Provider Unavaila ble Encounter Details Date Type Department Care Team Description 07/25/2012 Orders Only Medicine/Pediatrics - [address] [phone] Meghan Hicks MD Encounter for therapeutic drug monitoring; Encounter for long-term (current) use of anticoagulants; Acute venous embolism and thrombosis of unspecified deep vessels of lower extremity Social History Tobacco Use Types Packs/Day Years [...] as of this encounter Visit Diagnoses Diagnosis Encounter for therapeutic drug monitoring 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 (current) use of anticoagulants Long-term (current) use of anticoagulants Acute venous embolism and thrombosis of unspecified deep vessels of lower extremity documented in this encounter Care Teams High School Foreign Language Teacher Relationship Specialty Start Date End Date Meghan Hicks MD PCP - General Internal Medicine 04/08/12 01/15/22 [facility], Pcp PCP - General Internal Medicine 01/16/22 03/05/22 Meghan Hicks MD PCP - General Internal Medicine 03/06/22 03/18/22 Andree Gonzalez MD PCP - General Internal Medicine 03/19/22 Beatrice Holloway MD Specialist Cardiology 07/31/21 documented as of this encounter
--- OUTSIDE RECORDS SUMMARY | 2024-11-20 10:11 | XMS_ITS | Encounter Summary ---
Author Organization [facility] Address [address] [place] [address] Care Team Providers Care Casing Tier Name Role Phone Meghan Hicks MD Primary Care Provider Beatrice Garvey MD Unavailable [facility], Pcp Primary Care Provider Unavailbrown e Meghan Hicks MD Primary Care Provider Andree Stallworth MD Primary Care Provider Unavailnathaly barcenas Encounter Details Date Type Department Care Team Description 08/05/2015 Release of Information Medical Records [address] [place] [id number] Abstract, Provider Social History Tobacco Use Types [...] filedocumented in this encounter Care Teams Casing Tier Relationship Specialty Start Date End Date Meghan Hicks MD PCP - General Internal Medicine 04/08/12 01/15/22 [facility], Pcp PCP - General Internal Medicine 01/16/22 03/05/22 Meghan Hicks MD PCP - General Internal Medicine 03/06/22 03/18/22 Andree Gonzalez MD PCP - General Internal Medicine 03/19/22 Beatrice Holloway MD Specialist Cardiology 07/31/21 documented as of this encounter
--- OUTSIDE RECORDS SUMMARY | 2024-11-20 10:11 | XMS_ITS | Encounter Summary ---
Author Organization [facility] Address [address] [place] [address] Care Team Providers Care Painter Shipyard Name Role Phone Meghan Hicks MD Primary Care Provider Beatrice Garvey MD Unavailable [facility], Pcp Primary Care Provider Unavailabl e Meghan Hicks MD Primary Care Provider Unava Andree Nicholas MD Primary Care Provider Unavailnathaly barcenas Encounter Details Date Type Department Care Team Description 01/04/2017 Energy Advisor Report Medical Records [address] [place] [address] Kyle Barroso MD Social History Tobacco Use Types Packs/Day [...] on filedocumented in this encounter Care Teams Painter Shipyard Relationship Specialty Start Date End Date Meghan Hicks MD PCP - General Internal Medicine 04/08/12 01/15/22 [facility], Pcp PCP - General Internal Medicine 01/16/22 03/05/22 Meghan Hicks MD PCP - General Internal Medicine 03/06/22 03/18/22 Andree Gonzalez MD PCP - General Internal Medicine 03/19/22 Beatrice Holloway MD Specialist Cardiology 07/31/21 documented as of this encounter
--- OUTSIDE RECORDS SUMMARY | 2024-11-20 10:11 | XMS_ITS | Encounter Summary ---
Author Organization [facility] Address [address] [place] [address] Care Team Providers Care Dairy Equipment Installer Name Role Phone Meghan Hicks MD Primary Care Provider Beatrice Garvey MD Unavailable [facility], Pcp Primary Care Provider Unavailbrown e Meghan Hicks MD Primary Care Provider Andree Stallworth MD Primary Care Provider Unavailnathaly barcenas Encounter Details Date Type Department Care Team Description 03/31/2019 Traffic Law Attorney Report Medical Records [address] [place] [address] Abstract, Provider Social History Tobacco Use Types [...] on filedocumented in this encounter Care Teams Dairy Equipment Installer Relationship Specialty Start Date End Date Meghan Hicks MD PCP - General Internal Medicine 04/08/12 01/15/22 [facility], Pcp PCP - General Internal Medicine 01/16/22 03/05/22 Meghan Hicks MD PCP - General Internal Medicine 03/06/22 03/18/22 Andree Gonzalez MD PCP - General Internal Medicine 03/19/22 Beatrice Holloway MD Specialist Cardiology 07/31/21 documented as of this encounter
--- OUTSIDE RECORDS SUMMARY | 2024-11-20 10:11 | XMS_ITS | Encounter Summary ---
Author Organization [facility] Address [address] [place] [address] Care Team Providers Care Fit Model Name Role Phone Meghan Hicks MD Primary Care Provider Beatrice Garvey MD Unavailable [facility], Pcp Primary Care Provider Unavailabl e Meghan Hicks MD Primary Care Provider Andree Stallworth MD Primary Care Provider Unavailnathaly barcenas Encounter Details Date Type Department Care Team Description 09/17/2014 Marketing Budget Analyst Report Medical Records [address] [place] [phone] Geraldo Reis MD, MD Social History Tobacco Use Types Packs/Day [...] on filedocumented in this encounter Care Teams Fit Model Relationship Specialty Start Date End Date Meghan Hicks MD PCP - General Internal Medicine 04/08/12 01/15/22 [facility], Pcp PCP - General Internal Medicine 01/16/22 03/05/22 Meghan Hicks MD PCP - General Internal Medicine 03/06/22 03/18/22 Andree Gonzalez MD PCP - General Internal Medicine 03/19/22 Beatrice Holloway MD Specialist Cardiology 07/31/21 documented as of this encounter
--- OUTSIDE RECORDS SUMMARY | 2024-11-20 10:11 | XMS_ITS | Encounter Summary ---
Author Organization [employer] Address [address] [facility] [address] [place] [address] Care Team Providers Care Gluer Machine Setup Operator Name Role Phone Unavailable Primary Care [...] Description 02/21/2025 10:50 AM EDT Office Visit [facility] [address] [place] [address] Krystal Ramesh documented as of this encounter Visit Diagnoses Not on filedocumented in this encounter Care Teams Gluer Machine Setup Operator Relationship Specialty Start Date End Date Dr. Meghan Hicks Primary Care Provider 08/17/[address] Andree Lindquist [facility] Primary Care [place], [place] Primary Care Provider 08/17/22 documented as of this encounter
--- OUTSIDE RECORDS SUMMARY | 2024-11-20 10:11 | XMS_ITS | Encounter Summary ---
Author Organization [facility] Address [address] [place] [address] Care Team Providers Care Inside Sales Specialist Name Role Phone Meghan Hicks MD Primary Care Provider Beatrice Garvey MD Unavailable [facility], Pcp Primary Care Provider Unavailabl e Meghan Hicks MD Primary Care Provider Andree Stallworth MD Primary Care Provider Unavailnathaly barcenas Encounter Details Date Type Department Care Team Description 02/11/2015 Stock Chaser Report Medical Records [address] [place] [address] Geraldo Reis MD, MD Social History Tobacco [...] on filedocumented in this encounter Care Teams Inside Sales Specialist Relationship Specialty Start Date End Date Meghan Hicks MD PCP - General Internal Medicine 04/08/12 01/15/22 [facility], Pcp PCP - General Internal Medicine 01/16/22 03/05/22 Meghan Hicks MD PCP - General Internal Medicine 03/06/22 03/18/22 Andree Gonzalez MD PCP - General Internal Medicine 03/19/22 Beatrice Holloway MD Specialist Cardiology 07/31/21 documented as of this encounter
--- OUTSIDE RECORDS SUMMARY | 2024-11-20 10:11 | XMS_ITS | Encounter Summary ---
Author Organization [facility] Address [address] [place] [address] Care Team Providers Care Crab Fisherman Name Role Phone Mayo Donnelly MD Primary Care Provider [phone] Encounter Details Date Type Department Care Team (Late st Contact Info) Description 07/25/2024 Lab Requisition [facility] - Main Lab [address] [place] [address] Mayo Donnelly MD [address] [place] [address] Encounter for other general examination Social History [...] LAB CHEMISTRY METHOD 07/25/2024 11:01 AM EST [facility] Potassium 5.5 3.5 - 5.5 mmol/L LAB CHEMISTRY METHOD 07/25/2024 11:01 AM [facility] Comment:Hemolysis present Chloride 111(H) 96 - 110 mmol/L LAB CHEMISTRY METHOD 07/25/2024 11:01 AM [facility] CO2 16(L) 21 - [...] MD LAB BLOOD ORDERABLES Final Res ult [facility] [address] [place] [address], documented in this encounter Visit Diagnoses Diagnosis Encounter for other general examination documented in this encounter Care Teams Crab Fisherman Relationship Specialty Start Date End Date Mayo Donnelly MD [address] [place] [address] PCP - General Internal Medicine 11/06/24 documented as of this encounter
--- OUTSIDE RECORDS SUMMARY | 2024-11-20 10:12 | XMS_ITS | Encounter Summary ---
Author Organization [facility] Address [address] [place] [address] Care Team Providers Care Compound Machine Operator Name Role Phone Meghan Hicks MD Primary Care Provider Beatrice Garvey MD Unavailable [facility] Primary Care Provider UnavailMeghan Jones MD Primary Care Provider Andree Stallworth MD Primary Care Provider Unavailnathaly barcenas Encounter Details Date Type Department Care Team Description 03/20/2020 Hospital Medical Records [address] [place] [address] Loc Cheung MD Social History Tobacco Use Types Packs/Day Years Used Date Smoking Tobacco: Former Cigarettes 1.5 20 Q uit: 07/12/1998 Smokeless Tobacco: Never Alcohol Use Standard Drinks/Week Comments No 0 (1 standard drink = 0.6 oz pur e alcohol) Sex Assigned at Date Recorded Not on file Job Start Date Occupation Industry Not on file Not on file Not on file COVID-19 Exposure Response Date Recorded In the last month, have you been in contact with someone who was confirmed or suspected to have Coronavirus / COVID-19? No / Unsure 03/12/2020 9:40 AM EDT documented as of this encounter Plan of Treatment Not on file documented as of this encounter Visit Diagnoses Not on filedocumented in this encounter Care Teams Compound Machine Operator Relationship Specialty Start Date End Date Meghan Hicks MD PCP - General Internal Medicine 04/08/12 01/15/22 [facility] PCP - General Internal Medicine 01/16/22 03/05/22 Meghan Hicks MD PCP - General Internal Medicine 03/06/22 03/18/22 Andree Gonzalez MD PCP - General Internal Medicine 03/19/22 Beatrice Holloway MD Specialist Cardiology 07/31/21 documented as of this encounter
--- OUTSIDE RECORDS SUMMARY | 2024-11-20 10:12 | XMS_ITS | Encounter Summary ---
Author Organization [facility] Address [address] [place] [address] Care Team Providers Care Food Aide Name Role Phone Meghan Hicks MD Primary Care Provider Beatrice Garvey MD Unavailable [facility], Pcp Primary Care Provider Unavailabl e Meghan Hicks MD Primary Care Provider Andree Stallworth MD Primary Care Provider Unavailnathaly barcenas Encounter Details Date Type Department Care Team Description 08/10/2013 Intake Man Report Medical Records [address] [place] [address] Patrick Solorzano Social History Tobacco Use Types Packs/Day Years [...] on filedocumented in this encounter Care Teams Food Aide Relationship Specialty Start Date End Date Meghan Hicks MD PCP - General Internal Medicine 04/08/12 01/15/22 [facility], Pcp PCP - General Internal Medicine 01/16/22 03/05/22 Meghan Hicks MD PCP - General Internal Medicine 03/06/22 03/18/22 Andree Gonzalez MD PCP - General Internal Medicine 03/19/22 Beatrice Holloway MD Specialist Cardiology 07/31/21 documented as of this encounter
--- OUTSIDE RECORDS SUMMARY | 2024-11-20 10:12 | XMS_ITS | Clinical Summary ---
Author Organization [facility] Address [address] [place] [address] Care Team Providers Care Back End Engineer Name Role Phone CandelarioAndree andersen Primary Care Provider [phone] Allergies Active Allergy Reactions Criticality Noted Date Comments Cefdinir Rash 07/22/2023 Tolerated ceftriaxone 10/2023 Sulfa (Sulfonamide Antibiotics) Rash 07/22/2023 Trimethoprim Rash 07/22/2023 Medications glipiZIDE (GLUCOTROL) 5 mg tablet Take 2.5 mg by mouth once a day. 023 Active acidophilus-pe ctin, citrus 25 million cell -100 mg tablet Take 1 capsule by mouth after lunch. Active Estring 2 mg (7.5 mcg /24 hour) vaginal ring Apply 2 mg to the vagina every 3 months. Active Myrbetriq 50 mg tablet 50 mg every morning. [address] (PROTONIX) 40 mg tablet 40 mg at bed time. Active sertraline (ZOLOFT) 100 mg tablet Take 100 mg by mouth every morning. Active umeclidinium (INCRUSE ELLIPTA) 62.5 mcg/actuation blister with device Take 1 puff by mouth every morning. Active carbidopa-levo dopa (SINEMET) 25-100 mg per tablet Take 2 tablets by mouth 3 times a day. Active Ventolin HFA 90 mcg/actuation inhaler Inhale 2 puffs by mouth every 6 hours as needed. 023 Active ursodioL (ACTIGALL) 300 mg capsule Take 2 capsules by mouth 2 times a day. Active fenofibrate (LOFIBRA) 54 mg tablet Take 54 mg by mouth once a day. Active trospium (SANCTURA) 20 mg tablet Take 20 mg by mouth 2 times a day. Active magnesium oxide (MAG-OX) 400 mg (241.3 mg mag) tablet Take 400 mg by mouth 2 times a day. Active multivitamin (THERAGRAN) tablet Take 1 tablet by mouth once a day. Active aspirin 81 mg capsule aspirin 81mg, 0 Refills, Maintenance, 09/12/24 9:32:00 AM EST Active coQ10, ubiquinol, 200 mg capsule Take 200 mg by mouth. 2025 Active omega-3s/dha/e pa/fish oil/D3 (VITAMIN-D + OMEGA-3 ORAL) once a week. saturdays Active Neurontin 300 mg capsule Take 300 mg by mouth 2 times a day. Active acetaminophen (TYLENOL) 325 mg tablet Take 650 mg by mouth 3 times a day. Active phenazopyridin e (PYRIDIUM) 200 mg tablet Take 1 tablet (200 mg total) by mouth 3 times a day as needed for bladder spasms. 9 tablet 5 9:45 AM EDT Active benzonatate (TESSALON) 100 mg capsule Take 1 capsule (100 mg total) by mouth 3 times a day as needed for cough. Active dextromethorph an-guaifenesin (ROBITUSSIN DM) 20-200 mg/10 mL syrup Take 5 mL by mouth every 4 hours as needed for cough. Active LORazepam (ATIVAN) 0.5 mg tablet Take 0.5 tablets (0.25 mg total) by mouth nightly as needed for anxiety for up to 4 days. Active losartan (COZAAR) 25 mg tablet Take 1 tablet (25 mg total) by mouth once a day. Takes 50mg qAM and 25mg at 7pm if SBP>130 Active senna (SENOKOT) 8.6 mg tablet Take 1 tablet (8.6 mg total) by mouth daily as needed for constipation. 23/ 2025 Active polyethylene glycol 3350 (MIRALAX) 17 gram packet Take 1 packet (17 g total) by mouth daily as needed for constipation. Mix powder in 4 to 8 oz of water, juice, coffee, or tea prior to administration. 025 Active losartan (COZAAR) 25 mg tablet Take 50 mg by mouth 2 times a day. Takes 50mg qAM and 25mg at 7pm if SBP>130 2024 Discontinued LORazepam (ATIVAN) 0.5 mg tablet Take 0.5 mg by mouth every 8 hours as needed. 023 2024 Discontinued(E rror) nitrofurantoin monohydrate/ma crocrystals (MACROBID) 100 mg capsule Take 1 capsule (100 mg total) by mouth every 12 hours for 5 days. 10 capsule 9:45 AM EDT 025 2024 0.9% NaCl 0.9% piggyback 100 mL with cefTRIAXone 2 gram recon soln 2 g Infuse 2 g intravenously every 24 hours for 1 day. 025 2024 Active Problems Problem Noted Date Diagnosed Date Bacteremia 11/01/2024 Assessment & Plan (11/01/2024 10:15 AM EDT): See UTI section History of transcatheter aortic valve replacemen t (TAVR) 10/30/2024 Assessment & Plan (11/01/2024 7:12 AM EDT): Hx of TAVR 07/11/24 c/b stroke with residual left sided weakness Home meds: asa 81 mg daily - cont asa Assessment & Plan (10/30/2024 3:03 PM EDT): Hx of TAVR 07/11/24 c/b stroke with residual left sided weakness Home meds: asa 81 mg daily - cont asa Assessment & Plan (10/30/2024 9:54 AM EDT): Hx of TAVR 07/11/24 c/b stroke with residual left sided weakness Home meds: asa 81 mg daily - was held on admission, resumed 10/30 History of stroke 10/30/2024 Assessment & Plan (11/01/2024 11:35 AM EDT): Home meds: asa 81 mg daily see TAVR No statin present on ANALYTICAL SCIENCES DIRECTOR med rec on admission, although noted in EMR that patient should be taking atorvastatin 40 mg, unclear if this was discontinued ANALYTICAL SCIENCES DIRECTOR - consider re-initiating statin while admitted; plan to discuss with family Assessment & Plan (10/30/2024 3:03 PM EDT): Home meds: asa 81 mg daily see TAVR No statin present on ANALYTICAL SCIENCES DIRECTOR med rec on admission, although noted in EMR that patient should be taking atorvastatin 40 mg, unclear if this was discontinued ANALYTICAL SCIENCES DIRECTOR - consider re-initiating statin while admitted Assessment & Plan (10/30/2024 11:55 AM EDT): Home meds: asa 81 mg daily see TAVR No statin present on ANALYTICAL SCIENCES DIRECTOR med rec on admission, although noted in EMR that patient should be taking atorvastatin 40 mg, unclear if this was discontinued ANALYTICAL SCIENCES DIRECTOR - consider re-initiating statin while admitted Impaired mobility and ADLs 10/30/2024 Assessment & Plan (11/01/2024 7:12 AM EDT): PT following, rec dc to inpt facility Assessment & Plan (10/30/2024 3:03 PM EDT): PT following, rec dc to inpt facility Dysphagia 10/29/2024 Assessment & Plan (11/01/2024 7:12 AM EDT): Patient with sensation of something stuck in her throat. MINING MACHINERY ASSEMBLER following, most recent eval 10/30: Recommend a level 0/thin liquid, level 7/easy to chew solid diet. Recommend intermittent supervision to cue patient for recommended swallow strategies: upright 90 deg during meals, small bite/sips, SINGLE sips at a time. Assessment & Plan (10/30/2024 3:03 PM EDT): Patient with sensation of something stuck in her throat. MINING MACHINERY ASSEMBLER following, most recent eval 10/30: Recommend a level 0/thin liquid, level 7/easy to chew solid diet. Recommend intermittent supervision to cue patient for recommended swallow strategies: upright 90 deg during meals, small bite/sips, SINGLE sips at a time. Assessment & Plan (10/30/2024 11:55 AM EDT): Patient with sensation of something stuck in her throat. MINING MACHINERY ASSEMBLER following, most recent eval 10/30: Recommend a level 0/thin liquid, level 7/easy to chew solid diet. Recommend intermittent supervision to cue patient for recommended swallow strategies: upright 90 deg during meals, small bite/sips, SINGLE sips at a time. Assessment & Plan (10/29/2024 1:57 PM EDT): Patient with sensation of something stuck in her throat. MINING MACHINERY ASSEMBLER on 420 clearing patient for a level 6 solids and level 0 liquid. Plan for MBS per MINING MACHINERY ASSEMBLER Continue level 6 solids and level 0 liquids Recommending MBS Hyponatremia 10/28/2024 Assessment & Plan (11/01/2024 11:35 AM EDT): Labs notable for sodium of 128, serum osmolarity 295 on admission. Volume status on admission displays euvolemic . Etiology of hyponatremia is likely due to hypovolemia, infection. Improving during admission - WNL 11/01 Monitor neurologic status Assessment & Plan (10/30/2024 3:03 PM EDT): Labs notable for sodium of 128, serum osmolarity 295. Volume status on admission displays euvolemic . Etiology of hyponatremia is likely due to hypovolemia, infection. Improving during admission - Goal Na increase no greater than 8-10meq/day - Monitor neurologic status Assessment & Plan (10/30/2024 11:55 AM EDT): Labs notable for sodium of 128, serum osmolarity 295. Volume status on admission displays euvolemic . Etiology of hyponatremia is likely due to hypovolemia, infection. Improving during admission - Goal Na increase no greater than 8-10meq/day - Monitor neurologic status Assessment & Plan (10/29/2024 1:57 PM EDT): Labs notable for sodium of 128, serum osmolarity 295. Volume status on admission displays euvolemic . Etiology of hyponatremia is likely due to hypovolemia, infection - Goal Na increase no greater than 8-10meq/day - Monitor neurologic status Assessment & Plan (10/28/2024 4:54 PM EDT): Labs notable for sodium of 128, serum osmolarity pending . Volume status on admission displays euvolemic . Etiology of hyponatremia is likely due to hypovolemia, infection - Follow-up serum osmolarity , urine Na - Trend Na - Goal Na increase no greater than 8-10meq/day - Monitor neurologic status Anemia 10/28/2024 Assessment & Plan (11/01/2024 7:12 AM EDT): Pt transfused 1 unit PRBC Patient has a history of anemia with baseline Hgb ~10. On admission, Hgb is 7.5. Patient is not displaying any acute signs of bleeding including hematemesis, melena, BRBPR. Etiology of anemia is likely due to acute renal failure. Retic index < 2, suggesting bone marrow suppression due to active infection. Low iron levels. - Daily CBC - Transfuse for Hgb < 7.0 - Monitor for signs and symptoms of bleeding - Reduce blood draws if possible - plan for iron repletion following resolution of infectious process - plan to recheck retic count following infectious process Assessment & Plan (10/30/2024 3:03 PM EDT): Pt transfused 1 unit PRBC Patient has a history of anemia with baseline Hgb ~10. On admission, Hgb is 7.5. Patient is not displaying any acute signs of bleeding including hematemesis, melena, BRBPR. Etiology of anemia is likely due to acute renal failure. Retic index < 2, suggesting bone marrow suppression due to active infection. Low iron levels. - Daily CBC - Transfuse for Hgb < 7.0 - Monitor for signs and symptoms of bleeding - Reduce blood draws if possible - plan for iron repletion following resolution of infectious process - plan to recheck retic count following infectious process Assessment & Plan (10/30/2024 11:55 AM EDT): Pt transfused 1 unit PRBC Patient has a history of anemia with baseline Hgb ~10. On admission, Hgb is 7.5. Patient is not displaying any acute signs of bleeding including hematemesis, melena, BRBPR. Etiology of anemia is likely due to acute renal failure. Retic index < 2, suggesting bone marrow suppression due to active infection. Low iron levels. - Daily CBC - Transfuse for Hgb < 7.0 - Monitor for signs and symptoms of bleeding - Reduce blood draws if possible - plan for iron repletion following resolution of infectious process - plan to recheck retic count following infectious process Assessment & Plan (10/29/2024 9:49 AM EDT): Pt transfused 1 unit PRBC Patient has a history of anemia with baseline Hgb ~10. On admission, Hgb is 7.5. Patient is not displaying any acute signs of bleeding including hematemesis, melena, BRBPR. Etiology of anemia is likely due to acute renal failure. Retic index < 2, suggesting bone marrow suppression due to active infection. Low iron levels. - Daily CBC - Transfuse for Hgb < 7.0 - Monitor for signs and symptoms of bleeding - Reduce blood draws if possible - plan for iron repletion following resolution of infectious process - plan to recheck retic count following infectious process Assessment & Plan (10/28/2024 6:29 PM EDT): Pt transfused 1 unit PRBC Patient has a history of anemia with baseline Hgb ~10. On admission, Hgb is 7.5. Patient is not displaying any acute signs of bleeding including hematemesis, melena, BRBPR. Etiology of anemia is likely due to acute renal failure - Reticulocyte count, iron panel, Vit B12/Folate - Daily CBC - Transfuse for Hgb < 7.0 - Monitor for signs and symptoms of bleeding - Reduce blood draws if possible Assessment & Plan (10/28/2024 2:51 PM EDT): Patient with Hgb values in 9-10 range in 07/2024- now down to 6.6, without clear source of blood loss identified. In addition to possibility of blood loss, AUGUSTINE and acute inflammatory state may be contributing. Would transfuse as clinically warranted. Urge incontinence 02/09/2024 UTI (urinary tract infection) 10/04/2023 Assessment & Plan (11/01/2024 11:35 AM EDT): Patient with history of UTIs growing E. coli, E faecalis, Klebsiella. Presenting this admission with urinary retention found to have a positive UA. Blood cultures growing E coli, and urine cx with E coli and Klebsiella pneumonia. Treating with abx as below Of note, Pt has drug allergies to cephalosporin, previously tolerated keflex Treatment S/p levaquin 10/28 S/p Zosyn 10/28 -10/31 Transitioned to CTX 10/31 - with graded challenge after discussion with pharmacy and patient/pt family (plan for 7 days total, last days 11/03/24) for bacteremia and UTI Assessment & Plan (10/31/2024 2:05 PM EDT): Patient with history of UTIs growing E. coli, E faecalis, Klebsiella. Presenting this admission with urinary retention found to have a positive UA. Blood cultures growing E coli, and urine cx with E coli and Klebsiella pneumonia. Treating with abx as below Of note, Pt has drug allergies to cephalosporin, previously tolerated keflex workup Urine cx 10/28: Awaiting results Blood cx 10/28: Gram-negative bacilli Treatment S/p levaquin 10/28 S/p Zosyn 10/28 -10/31 Transitioned to CTX 10/31 - with graded challenge after discussion with pharmacy and patient/pt family Assessment & Plan (10/30/2024 11:55 AM EDT): Patient with history of UTIs growing E. coli, E faecalis, Klebsiella. Presenting this admission with urinary retention found to have a positive UA. Blood cultures growing E coli, awaiting sensitivities. Awaiting urine culture results. Treating with Zosyn. Of note, Pt has drug allergies to cephalosporin, previously tolerated keflex workup Urine cx 10/28: Awaiting results Blood cx 10/28: Gram-negative bacilli Treatment S/p levaquin 10/28 START Zosyn 10/28 - Assessment & Plan (10/29/2024 1:57 PM EDT): Patient with history of UTIs growing E. coli, E faecalis, Klebsiella. Presenting this admission with urinary retention found to have a positive UA. Blood cultures growing gram-negative bacilli. Awaiting urine culture results. Treating with Zosyn. Of note, Pt has drug allergies to cephalosporin, previously tolerated keflex workup Urine cx 10/28: Awaiting results Blood cx 10/28: Gram-negative bacilli Treatment S/p levaquin 10/28 START Zosyn 10/28 - Assessment & Plan (10/28/2024 4:54 PM EDT): #urosepsis S/p levaquin 10/28 START Zosyn 10/28 - Urine cx 10/28: Blood cx 10/28: Pt has drug allergies to cephalosporin, previously tolerated keflex Overactive bladder 08/17/2023 Assessment & Plan (11/01/2024 7:12 AM EDT): Home meds: Myrbetriq 50 mg daily, Trospium 20 mg BID, estradiol 2 mg vaginal ring q3 months Patient with history of overactive bladder complicated by recurrent UTIs. 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 She has received Botox injections with urology. Last cystourethroscopy with chemodenervation (botox); was done by Dr. Lopes on 10/17/24. Urology consulted and following, keep pimentel in place at this time, pt will follow up outpt with uro, will need outpt amb referral on dc Assessment & Plan (10/31/2024 2:33 PM EDT): Home meds: Myrbetriq 50 mg daily, Trospium 20 mg BID, estradiol 2 mg vaginal ring q3 months Patient with history of overactive bladder complicated by recurrent UTIs. 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 She has received Botox injections with urology. Last cystourethroscopy with chemodenervation (botox); was done by Dr. Lopes on 10/17/24. Urology consulted and following, keep pimentel in place at this time, pt will follow up outpt with uro, will need outpt amb referral on dc Assessment & Plan (10/30/2024 11:55 AM EDT): Home meds: Myrbetriq 50 mg daily, Trospium 20 mg BID, estradiol 2 mg vaginal ring q3 months Patient with history of overactive bladder complicated by recurrent UTIs. 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 She has received Botox injections with urology. Last cystourethroscopy with chemodenervation (botox); was done by Dr. Lopes on 10/17/24. Urology consulted and following, keep pimentel in place Assessment & Plan (10/29/2024 9:49 AM EDT): Home meds: Myrbetriq 50 mg daily, Trospium 20 mg BID, estradiol 2 mg vaginal ring q3 months Patient with history of overactive bladder complicated by recurrent UTIs. 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 She has received Botox injections with urology. Last cystourethroscopy with chemodenervation (botox); was done by Dr. Lopes on 10/17/24. Urology consulted Assessment & Plan (10/28/2024 6:29 PM EDT): Home meds: Myrbetriq 50 mg daily, Trospium 20 mg BID, estradiol 2 mg vaginal ring q3 months Patient with history of overactive bladder complicated by recurrent UTIs. 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 She has received Botox injections with urology. Last cystourethroscopy with chemodenervation (botox); was done by Dr. Lopes on 10/17/24. Urology consulted Anxiety 08/03/2023 Arthritis 08/03/2023 Angina pectoris 08/03/2023 [...] normal; will obtain ferritin Centrilobular emphysema 10/28/2018 COPD (chronic obstructive pulmonary disease) Assessment & Plan (11/02/2024 8:39 AM EDT): Cont home inhalers as needed, goal o2 88-92% Pulmonary nodules 10/28/2018 Restrictive pattern present on pulmonary functio n testing 10/28/2018 LVH (left ventricular hypertrophy) 02/04/2018 Overview (08/03/2023): Moderate; asymmetric Parkinson disease 10/16/2015 Overview (08/03/2023): Melchionna Assessment & Plan (11/01/2024 7:12 AM EDT): Home meds: Carbidopa 25 mg-levodopa 100 mg 2 tablets by mouth 3 x per day, Sertraline 100 mg daily Continue current medications Assessment & Plan (10/30/2024 3:03 PM EDT): Home meds: Carbidopa 25 mg-levodopa 100 mg 2 tablets by mouth 3 x per day, Sertraline 100 mg daily Continue current medications Assessment & Plan (10/30/2024 11:55 AM EDT): Home meds: Carbidopa 25 mg-levodopa 100 mg 2 tablets by mouth 3 x per day, Sertraline 100 mg daily Continue current medications Assessment & Plan (10/29/2024 1:57 PM EDT): Home meds: Carbidopa 25 mg-levodopa 100 mg 2 tablets by mouth 3 x per day, Sertraline 100 mg daily Continue current medivations Assessment & Plan (10/28/2024 4:54 PM EDT): Home meds: Carbidopa 25 mg-levodopa 100 mg 2 tablets by mouth 3 x per day, Sertraline 100 mg daily Continue current medivations Cataracts, bilateral 03/25/2015 Overview (08/03/2023): Outside eye exam 05/14/2014 Dr. 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 Last A1c on file is 8.3% from 08/2021. - Hold home glipizide - LDSS Assessment & Plan (10/30/2024 3:03 PM EDT): Home meds: Glipizide 5 mg The patient has a history of type 2 diabetes mellitus. Last A1c on file is 8.3% from 08/2021. - Hold home glipizide - LDSS Assessment & Plan (10/30/2024 7:08 AM EDT): Home meds: Glipizide 5 mg The patient has a history of type 2 diabetes mellitus. Last A1c on file is 8.3% from 08/2021. - Hold home glipizide - LDSS Assessment & Plan (10/29/2024 9:49 AM EDT): Home meds: Glipizide 5 mg The patient has a history of type 2 diabetes mellitus. Last A1c on file is 8.3% from 08/2021. - Hold home glipizide - LDSS Assessment & Plan (10/28/2024 6:29 PM EDT): Home meds: Glipizide 5 mg The patient has a history of type 2 diabetes mellitus. Last A1c on file is 8.3% from 08/2021. - Hold home glipizide - LDSS Hypertension 02/16/2011 Overview (08/03/2023): Last Assessment & [...] if she can. I will discontinue furosemide. Assessment & Plan (11/01/2024 11:35 AM EDT): Home meds: Losartan 50 mg qAM and 25 mg @ 7 PM if SBP > 130 - On admission, held home Losartan with ongoing infection and AUGUSTINE; BP stable. With improved renal function, 25 losartan given 11/01 with plans to increase to home dose as long as renal function remains stable Assessment & Plan (10/30/2024 3:03 PM EDT): Home meds: Losartan 50 mg qAM and 25 mg @ 7 PM if SBP > 130 - Holding home Losartan with ongoing infection and AUGUSTINE; BP stable Assessment & Plan (10/30/2024 11:55 AM EDT): Home meds: Losartan 50 mg qAM and 25 mg @ 7 PM if SBP > 130 - Holding home Losartan with ongoing infection and AUGUSTINE; BP stable Assessment & Plan (10/29/2024 1:57 PM EDT): Home meds: Losartan 50 mg qAM and 25 mg @ 7 PM if SBP > 130 - Holding home Losartan with ongoing infection and AUGUSTINE Assessment & Plan (10/28/2024 4:54 PM EDT): Home meds: Losartan 50 mg qAM and 25 mg @ 7 PM if SBP > 130 - Holding home Losartan with ongoing infection, UTI Assessment & Plan (10/29/2024 11:19 AM EDT): BP relatively low in context of sepsis (though now appropriate following volume expansion). Would hold home losartan. 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 Amie Pereira; yearly TSH and yearly fat-soluble's particularly A and D Assessment & Plan (11/01/2024 11:35 AM EDT): Home med: fenofibrate 54 mg every day PO, ursodiol 600 BID PO Hold fenofibrate with renal dysfunction; consider resuming 11/02 as long as renal function remains stable cont ursodiol Assessment & Plan (10/30/2024 3:03 PM EDT): Home med: fenofibrate 54 mg every day PO, ursodiol 600 BID PO Hold fenofibrate with renal dysfunction cont ursodiol Assessment & Plan (10/30/2024 7:08 AM EDT): Home med: fenofibrate 54 mg every day PO, ursodiol 600 BID PO Hold fenofibrate with renal dysfunction cont ursodiol Assessment & Plan (10/29/2024 9:49 AM EDT): Home med: fenofibrate 54 mg every day PO, ursodiol 600 BID PO Hold fenofibrate with renal dysfunction cont ursodiol Assessment & Plan (10/28/2024 6:29 PM EDT): Home med: fenofibrate 54 mg every day PO, ursodiol 600 BID PO Hold fenofibrate with renal dysfunction Start ursodiol in AM 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 CXR suggestive of mild pulmonary edema. May be from volume repletion from treating sepsis. Repeat CXR 10/30 without acute changes or evidence of new consolidation. - persistently on 2L during admission, wean as tolerated for goal >92% - IS ordered Assessment & Plan (10/31/2024 2:05 PM EDT): Patient with no oxygen requirement at home. CXR suggestive of mild pulmonary edema. May be from volume repletion from treating sepsis. Repeat CXR 10/30 without acute changes or evidence of new consolidation. Assessment & Plan (10/30/2024 11:55 AM EDT): Patient with no oxygen requirement at home. CXR suggestive of mild pulmonary edema. May be from volume repletion from treating sepsis. Wean O2 as tolerated with goal O2 >92%, but with persistent o2 req, plan for CXR 10/30, consider diuresis in the afternoon if demonstrative of fluid overload Assessment & Plan (10/29/2024 1:57 PM EDT): Patient with no oxygen requirement at home. CXR suggestive of mild pulmonary edema. May be from volume repletion from treating sepsis. Will continue to wean O2 as tolerated Wean O2 as tolerated Acute kidney failure 10/28/2024 025 Assessment & Plan (11/01/2024 11:35 AM EDT): Baseline Cre 0.8-1.2. Presented with Cre 2.17, BUN 65, eGFR 22 this admission. Etiology likely post-renal iso UTI. Back at [facility] on 11/01 CTM Diagnostics: -UA: 1+ protein, blood; 3+ leuk est, WBCs, moderate bacteria -Imaging: CT showed circumferential bladder wall thickening with moderate perivesicular fat infiltration. - SPEP (pending) and serum free light chains ordered per renal rec; normal lowell and lambda ratio although each were mildly elevated - renal following Plan: -Urine microscopy -Trend renal function -Strict Is/Os; daily weights -Avoid Nephrotoxic medications, NSAIDs -Avoid aggressive BP control to maintain adequate renal perfusion -Renally dose all medications for GFR <30 - s/p bicarb 1300 BID; discontinued 11/01 after discussion with renal team Assessment & Plan (10/30/2024 3:03 PM EDT): Baseline Cre 0.8-1.2. Presented with Cre 2.17, BUN 65, eGFR 22 this admission. Etiology likely post-renal iso UTI Diagnostics: -UA: 1+ protein, blood; 3+ leuk est, WBCs, moderate bacteria -Imaging: CT showed circumferential bladder wall thickening with moderate perivesicular fat infiltration. - SPEP and serum free light chains ordered per renal rec - renal following Plan: -Urine microscopy -Trend renal function -Strict Is/Os; daily weights -Avoid Nephrotoxic medications, NSAIDs -Avoid aggressive BP control to maintain adequate renal perfusion -Renally dose all medications for GFR <30 - continued on bicarb 1300 BID Assessment & Plan (10/30/2024 9:54 AM EDT): Baseline Cre 0.8-1.2. Presented with Cre 2.17, BUN 65, eGFR 22 this admission. Etiology likely post-renal iso UTI Diagnostics: -UA: 1+ protein, blood; 3+ leuk est, WBCs, moderate bacteria -Imaging: CT showed circumferential bladder wall thickening with moderate perivesicular fat infiltration. - renal following Plan: -Urine microscopy -Trend renal function -Strict Is/Os; daily weights -Avoid Nephrotoxic medications, NSAIDs -Avoid aggressive BP control to maintain adequate renal perfusion -Renally dose all medications for GFR <30 - continued on bicarb 1300 BID Assessment & Plan (10/29/2024 1:57 PM EDT): Baseline Cre 0.8-1.2. Presented with Cre 2.17, BUN 65, eGFR 22 this admission. Etiology likely post-renal iso UTI Diagnostics: -UA: 1+ protein, blood; 3+ leuk est, WBCs, moderate bacteria -Imaging: CT showed circumferential bladder wall thickening with moderate perivesicular fat infiltration. - renal following Plan: -Urine microscopy -Trend renal function -Strict Is/Os; daily weights -Avoid Nephrotoxic medications, NSAIDs -Avoid aggressive BP control to maintain adequate renal perfusion -Renally dose all medications for GFR <30 - start bicarb 1300 BID Assessment & Plan (10/28/2024 6:29 PM EDT): Baseline Cre 0.8-1.2. Presented with Cre 2.17, BUN 65, eGFR 22 this admission. Etiology likely post-renal iso UTI Diagnostics: -UA: 1+ protein, blood; 3+ leuk est, WBCs, moderate bacteria -Imaging: CT showed circumferential bladder wall thickening with moderate perivesicular fat infiltration. Plan: -Urine microscopy -Trend renal function -Strict Is/Os; daily weights -Avoid Nephrotoxic medications, NSAIDs -Avoid aggressive BP control to maintain adequate renal perfusion -Renally dose all medications for GFR <30 Assessment & Plan (10/29/2024 11:19 AM EDT): Patient with multiple potential etiologies for AUGUSTINE, including sepsis, relative hypotension, severe anemia, and now exposure to iodinated contrast and ketorolac. Baseline SCr (based on outpatient readings) is likely in the range of 1.0-1.2 mg/dL. No evidence of obstructive uropathy on CT-A/P. -Serum creatinine has improved slightly, though some of the decrease may be attributable to volume expansion and associated hemodilution. -Agree with supportive management as currently being provided. -Advise caution with additional volume expansion, though if her p.o. intake seems poor today, providing LR at 75 mL/h would be appropriate. -Hold losartan, and would reserve diuretics for symptomatic pulmonary edema. -Monitor daily chemistries, daily weights, strict intake/output. -Avoid hypotension, minimize additional exposure to nephrotoxic agents. -Would transfuse as indicated to address severe anemia. -No indication for GREETER at this time; given the patient's underlying comorbidities, would discuss GOC with family before committing to GREETER should a potential need develop. Acute renal failure (ARF) 10/28/2024 Assessment & Plan (10/28/2024 6:29 PM EDT): As above Metabolic acidosis 10/28/2024 Assessment & Plan (11/01/2024 7:12 AM EDT): As above Assessment & Plan (10/30/2024 3:03 PM EDT): As above Assessment & Plan (10/30/2024 7:08 AM EDT): As above Assessment & Plan (10/29/2024 9:49 AM EDT): As above Assessment & Plan (10/28/2024 6:29 PM EDT): As above Assessment & Plan (10/29/2024 11:20 AM EDT): Likely due to AUGUSTINE (eGFR may be lower than SCr-based estimate, given Parkinson's disease and low muscle mass); lactic acid level was mildly elevated as well. U/A negative for ketones. I agree with starting sodium bicarbonate 1300 mg twice daily (effective 10/29), especially as she has underlying stage 3 CKD and intermittent metabolic acidosis at baseline. Encounters Date Type Department Care Team Description 11/20/2024 myChart Message [facility] [address] [place] [phone] Residential Appraiser: Christen Dempsey MD [place] 10/27/2024 11:55 PM EDT - 11/02/2024 1:35 PM EDT Hospital Encounter [facility] [address] [place] [address] Renard Hernandez MD Fidrocki, James E., MD Feibish, Gordon, DO MacGinnis, Christine O., Radha Lord MD Hyponatremia (Primary Dx); Anemia, unspecified type; AUGUSTINE (acute kidney injury) (HCC); Confusion; Dysphagia, unspecified type Discharge Disposition: Inpatient Rehab Facility (IRF) (62) 10/27/2024 Patient Self-Triage [facility] Medicine [address] [place] [phone] Urgent Care, Amb PhysicianMD 10/17/2024 8:40 AM EDT Anesthesia Event [facility] Operating Room [address] [place] [address] Victorino Cox MD Ackroyd, Luke J. 10/17/2024 8:20 AM EDT - 10/17/2024 9:10 AM EDT Surgery [facility] Operating Room [address] [place] [address] Christen Lopes MD CYSTOURETHROSCOPY WITH CHEMODENERVATION Botox 100 units; WITH FULGERATION . [31763 (CPT??)] 10/17/2024 6:33 AM EDT - 10/17/2024 10:56 AM EDT Hospital Encounter [facility] Operating Room [address] [place] [address] Christen Lopes MD Discharge Disposition: Home or Self Care w/ Planned Readmission (81) 10/17/2024 Telephone [facility] [address] [address] Residential Appraiser: Christen Dempsey MD 10/03/2024 11:30 AM EDT Pre-Admission Testing [facility] [address] [address] Meka Dover NP Urge incontinence (Primary Dx); Pre-op evaluation; Primary hypertension 10/03/2024 Telephone [facility] [address] [address] Residential Appraiser: Christen Dempsey MD 09/05/2024 myChart Message [facility] [address] [phone] Residential Appraiser: Paulette Sierra, [facility] Provider Surgery Wednesday10/17/2024 09/04/2024 Orders Only [facility] [address] [place] [phone] Residential Appraiser: Christen Dempsey MD 08/31/2024 Telephone [facility] [address] [address] Residential Appraiser: Christen Dempsey MD Update on pt's. symptoms 08/30/2024 Orders Only [facility] [address] [place] [phone] Residential Appraiser: Christen Dempsey MD Acute cystitis with hematuria (Primary Dx) 08/25/2024 1:00 PM EST Pre-Admission Testing [facility] [address] [address] Urge incontinence (Primary Dx); Preoperative testing 08/23/2024 Telephone [facility] [address] [place] [phone] Residential Appraiser: Christen Dempsey MD from Last 3 Months Family History Medical History Relation Name Comments COPD Father Throat cancer Father Colon cancer Mother Heart disease Mother ND Relation Name Status Comments Father Mother Social History Tobacco Use Types Packs/Day Years Used Date Smoking Tobacco: Former Cigarettes 1 45 1 954 - 1998 Smokeless Tobacco: Never Tobacco Cessation:Counseling Given: Not Answered Alcohol Use Standard Drinks/Week Comments Not Currently 0 (1 standard drink = 0.6 oz pur e alcohol) [facility] Utilities Answer Date Recorded In the past 12 months has th e electric, gas, oil, or water company threatened to shut off services in your [...] Sign Reading Time Taken Comments Blood Pressure 148/68 11/02/2024 11:21 AM EDT Pulse 67 11/02/2024 11:21 AM EDT Temperature 36.6 ??C (97.9 ??F) 11/02/2024 11:21 AM E DT Respiratory Rate 18 11/02/2024 11:21 AM EDT Oxygen Saturation 93% 11/02/2024 11:21 AM EDT Inhaled Oxygen Concentration - - Weight 65.8 kg (145 lb) 10/27/2024 11:51 PM EDT Height 157.5 cm (5' 2 ) 10/27/2024 11:51 PM EDT Body Mass Index 26.52 10/27/2024 11:51 PM EDT Plan of Treatment Upcoming Encounters Date Type Department Care Team (Late st Contact Info) Description 12/07/2024 8:15 AM EDT Follow-Up [facility] [address] [place] [phone] Residential Appraiser: Christen Dempsey MD [address] [place] [phone] 06/20/2025 10:45 AM EST Follow-Up [facility] [address] [place] [phone] Residential Appraiser: Christen Dempsey MD [address] [place] [phone] Health Maintenance Due Date Last Done Comments Hemoglobin A1C 1945 Hepatitis C Screening 1945 Medicare AWV 10/19/1946 Urine Microalbumin 10/19/1957 Osteoporosis Screening 10/19/1997 Hepatitis B Vaccines (1 of 3 - Risk 3-dose series) 2007 Zoster Vaccines (2 of 3) 08/14/2011 06/19/2011 DTaP,Tdap,and Td Vaccines (2 - Td or Tdap) 03/16/2022 03/16/2012, 08/06/2006 RSV Vaccine (60+ years old a nd patients) (1 - 1-dose 75+ series) 10/19/2022 COVID-19 Vaccine (4 - 2023-2 5 season) 2024 05/28/2021, 09/26/2020, 09/05/2020 Alcohol/Substance Use Screening 07/12/2024 Depression Screening and Follow-Up 07/12/2024 Health Care Proxy Review 07/12/2024 Ophthalmology Exam 08/26/2024 08/26/2023, 08/17/2022 Influenza Vaccine (Season Ended) 2025 05/19/2023, 06/08/2022, 04/29/2020, Additional history exists Social Drivers of Health Odalis ual Screening 10/28/2025 10/28/2024 Basic Metabolic Panel 11/02/2025 11/02/2024 , 11/01/2024, 10/31/2024, Additional history exists Pneumococcal Vaccine: 50+ Years Completed 08/05/2016, 12/31/2014, 03/27/2009 Cologuard Discontinued 10/06/2021, 10/06/2021 Colon Cancer Screening Discontinued Colonoscopy Discontinued FOBT / Fit Test Discontinued Sigmoidoscopy Discontinued Procedures * Due to [place] state law, this organization might not be sharing negative HIV tests. Procedure Name Priority Date/Time Associated Diagnosis Comments POCT GLUCOSE Routine 11/02/2024 12:12 PM EDT POCT GLUCOSE Routine 11/02/2024 8:34 AM EDT BASIC METABOLIC PANEL Routine 11/02/2024 6:01 AM EDT CBC AUTO DIFFERENTIAL Routine 11/02/2024 6:01 AM EDT POCT GLUCOSE Routine 11/01/2024 8:36 PM EDT POCT GLUCOSE Routine 11/01/2024 5:37 PM EDT [facility] IV PRIVATE BRANCH EXCHANGE REPAIRER PICC Routine 2:39 PM EDT POCT GLUCOSE Routine 11/01/2024 11:57 AM EDT POCT GLUCOSE Routine 11/01/2024 8:19 AM EDT BASIC METABOLIC PANEL Routine 11/01/2024 6:43 AM EDT CBC AUTO DIFFERENTIAL Routine 11/01/2024 6:43 AM EDT POCT GLUCOSE Routine 10/31/2024 8:27 PM EDT POCT GLUCOSE Routine 10/31/2024 5:16 PM EDT POCT GLUCOSE Routine 10/31/2024 12:27 PM EDT POCT GLUCOSE Routine 10/31/2024 7:23 AM EDT KAPPA & LAMBDA, FREE W/RATIO Routine 10/31/2024 6:11 AM EDT PROTEIN ELECTROPHORESIS W/REFLEX TO IMMUNOFIXATION, SERUM Routine 10/31/2024 6:11 AM EDT BASIC METABOLIC PANEL Routine 10/31/2024 6:11 AM EDT CBC AUTO DIFFERENTIAL Routine 10/31/2024 6:11 AM EDT POCT GLUCOSE Routine 10/30/2024 8:58 PM EDT POCT GLUCOSE Routine 10/30/2024 5:27 PM EDT POCT GLUCOSE Routine 10/30/2024 12:47 PM EDT FL MODIFIED BARIUM SWALLOW Routine 10/30/2024 10:26 AM EDT XR CHEST 2 VW STAT 10/30/2024 10:26 AM EDT POCT GLUCOSE Routine 10/30/2024 7:41 AM EDT BASIC METABOLIC PANEL Routine 10/30/2024 5:00 AM EDT CBC AUTO DIFFERENTIAL Routine 10/30/2024 5:00 AM EDT POCT GLUCOSE Routine 10/29/2024 9:47 PM EDT POCT GLUCOSE Routine 10/29/2024 5:13 PM EDT POCT GLUCOSE Routine 10/29/2024 12:33 PM EDT CBC AUTO DIFFERENTIAL Add-On 10/29/2024 6:13 AM EDT OSMOLALITY Routine 10/29/2024 6:13 AM EDT RETICULOCYTES Routine 10/29/2024 6:13 AM EDT BASIC METABOLIC PANEL Routine 10/29/2024 6:13 AM EDT POCT GLUCOSE Routine 10/29/2024 5:54 AM EDT OSMOLALITY, URINE Routine 10/29/2024 2:2 9 AM EDT SODIUM, RANDOM URINE Routine 10/29/2024 2:29 AM EDT MRSA/S AUREUS PCR, NASAL STAT 10/29/2024 1:16 AM EDT POCT GLUCOSE Routine 10/29/2024 12:23 AM EDT LACTIC ACID, PLASMA STAT 10/28/2024 6 :17 PM EDT CBC AUTO DIFFERENTIAL Timed 10/28/2024 2:27 PM EDT LACTIC ACID, PLASMA REPEATED Timed 10/28/2024 2:27 PM EDT BASIC METABOLIC PANEL STAT 10/28/2024 1:18 PM EDT CBC AUTO DIFFERENTIAL STAT 10/28/2024 1:18 PM EDT LACTIC ACID, PLASMA W/ REPEAT STAT 10/28/2024 11:14 AM EDT TRANSFUSE RED BLOOD CELLS Routine 10/28/2024 10:39 AM EDT POCT I-STAT LACTATE W/VBG Routine 10/28/2024 10:38 AM EDT BLOOD CULTURE STAT 10/28/2024 9:18 AM EDT BLOOD CULTURE STAT 10/28/2024 9:18 AM EDT PREPARE RBC Routine 10/28/2024 9:14 AM EDT MANUAL DIFFERENTIAL STAT 10/28/2024 9 :00 AM EDT FERRITIN STAT Add-on 10/28/2024 9:00 AM EDT IRON SATURATION STAT Add-on 10/28/2024 9:00 AM EDT FOLATE STAT Add-on 10/28/2024 9:00 AM EDT VITAMIN B12 STAT Add-on 10/28/2024 9:00 AM EDT IRON, TIBC AND FERRITIN PANEL (5616) STAT Add-on 10/28/2024 9:00 AM EDT CBC AUTO DIFFERENTIAL STAT 10/28/2024 9:00 AM EDT TYPE AND SCREEN STAT 10/28/2024 9:00 AM EDT BASIC METABOLIC PANEL Timed 10/28/2024 9:00 AM EDT POCT GLUCOSE Routine 10/28/2024 6:26 AM EDT XR CHEST PORTABLE 1 VIEW STAT 10/28/2024 5:27 AM EDT BASIC METABOLIC PANEL STAT 10/28/2024 5:22 AM EDT MVL QS - COVID-19, FLU A/B & RSV RNA PCR, SYMPTOMATIC STAT 10/28/2024 5:14 AM EDT POCT I-STAT LACTATE W/VBG Routine 10/28/2024 4:56 AM EDT TEJADA TOP, URN Routine 10/28/2024 2:47 AM EDT UA/CULTURE REFLEX Routine 10/28/2024 2:4 7 AM EDT URINALYSIS W/REFLEX TO MICROSCOPIC & CULTURE Routine 10/28/2024 2:47 AM EDT URINE CULTURE, ROUTINE Routine 2:[address] ABDOMEN PELVIS W CONTRAST STAT 10/28/2024 2:21 AM EDT XR HIP RIGHT 2+ VW W PELVIS STAT 10/28/2024 1:50 AM EDT TEJADA TOP Routine 10/28/2024 1:02 AM EDT LAVENDER TOP Routine 10/28/2024 1:02 AM EDT EXTRA TUBES Routine 10/28/2024 1:02 AM EDT MAGNESIUM STAT 10/28/2024 12:58 AM EDT LIPASE STAT 10/28/2024 12:58 AM EDT COMPREHENSIVE METABOLIC PANEL STAT 10/28/2024 12:58 AM EDT CBC AUTO DIFFERENTIAL STAT 10/28/2024 12:58 AM EDT [place] CYSTOURETHROSCOPY INJ CHEMODENERVATION BLADDER 10/17/2024 8:25 AM EDT Urge incontinence Special Needs BOTOX POCT GLUCOSE Routine 10/17/2024 7:18 AM EDT URINALYSIS, OUTSIDE LAB Routine 09/02/19 9:20 AM EST LAB - SCANNED 08/29/2024 from Last 3 Months Results * Due to [place] state law, this organization might not be sharing negative HIV tests. * (ABNORMAL) POCT Glucose, interfaced (11/02/2024 12:12 PM EDT) Only the most recent of21 resultswithin the time period is included. [facility] Glucose, POCT 237(H) 70 - 99 mg/dL 11/02/2024 12:23 PM EDT [facility] Comment: The cement mixer has not determined the efficacy of this test in Critically ill patients. ??[facility] defines Critically ill patients for the purpose of blood glucose monitoring (BGM) by glucometer, as patients meeting one or more of the following criteria: Hypotension- non-ICU patients (systolic blood pressure Less than 90 mmHg) due to shock Hypotension -ICU patients ??(Mean Arterial Pressure (MAP) <60 mmHg or systolic blood pressure < 90 mmHg due to shock Patients receiving Vasopressors (phenylephrine, vasopressin or norepinephrine) Anasarca In all locations, BGM test results should not be relied upon in the above situations, unless these results confirmed with lab-based glucose values. Blood 11/02/2024 12:1 2 PM EDT 11/02/2024 12:23 PM EDT us Radha Elias MD LAB POCT ORDERABLES - DEV ICE Final Result [facility] [address] [place] [address], [place] * (ABNORMAL) CBC Auto Differential (11/02/2024 6:01 AM EDT) Only the most recent of9 resultswithin the time period is included. WBC 10.6 3.8 - 10.8 10*3/uL 11/02/2024 6:26 AM EDT [facility] RBC 3.33(L) 3.80 - 5.10 10*6/uL 11/02/2024 6:26 AM EDT [facility] Hemoglobin 7.4(L) 11.7 - 15.5 g/dL 11/02/2024 6:26 AM T [facility] Hematocrit 23.7(L) 35.0 - 45.0 % 11/02/2024 6:26 AM T [facility] MCV 71.2(L) 80.0 - 100.0 fL 11/02/2024 6:26 AM EDT [facility] MCH 22.2(L) 27.0 - 33.0 pg 11/02/2024 6:26 AM EDT [facility] MCHC 31.2(L) 32.0 - 36.0 g/dL 11/02/2024 6:26 AM EDT [facility] RDW 18.0(H) 11.0 - 15.0 % 11/02/2024 6:26 AM EDT [facility] Platelets 363 140 - 400 10*3/uL 11/02/2024 6:26 AM EDT [facility] MPV 9.3 7.5 - 12.5 fL 11/02/2024 6:26 AM T [facility] Neutrophil % 73.4 % 11/02/2024 6:26 AM EDT [facility] Immature Grans % 2.0(H) 0.0 - 0.9 % 11/02/2024 6:26 AM [facility] Lymphocyte % 10.7 % 11/02/2024 6:26 AM [facility] Monocyte % 9.0 % 11/02/2024 6:26 AM [facility] Eosinophil % 4.8 % 11/02/2024 6:26 AM T [facility] Basophil % 0.1 % 11/02/2024 6:26 AM [facility] Neutrophil # 7.76 1.50 - 7.80 10*3/uL 11/02/2024 6:26 AM [facility] Immature Grans # 0.21(H) <=0.03 10*3/uL 11/02/2024 6:26 AM [facility] Lymphocyte # 1.10 0.85 - 3.90 10*3/uL 11/02/2024 6:26 AM [facility] Monocyte # 1.00(H) 0.20 - 0.95 10*3/uL 11/02/2024 6:26 AM [facility] Eosinophil # 0.50 0.02 - 0.50 10*3/uL 11/02/2024 6:26 AM [facility] Basophil # <0.03 0.00 - 0.20 10*3/uL 11/02/2024 6:26 AM [facility] nRBC % 0.0 /100 WBCs 11/02/2024 6:26 AM [facility] nRBC # <0.01 <0.01 10*3/uL 11/02/2024 6:26 AM [facility] Blood Structure of peripheral vein / Unknown Venipuncture / Unknown 11/02/2024 6:01 AM EDT 11/02/2024 6:12 AM EDT us Radha Elias MD LAB BLOOD ORDERABLES Ambar eastman Result [facility] [address] [place] [address], * (ABNORMAL) Basic metabolic panel (11/02/2024 6:01 AM EDT) Only the most recent of8 resultswithin the time period is included. NA 137 135 - 145 mmol/L 11/02/2024 6:43 AM EDT [facility] K 4.1 3.5 - 5.3 mmol/L 11/02/2024 6:43 AM EDT [facility] Cl 101 98 - 107 mmol/L 11/02/2024 6:43 AM EDT [facility] CO2 25 22 - 32 mmol/L 11/02/2024 6:43 AM EDT [facility] BUN 29(H) 7 - 23 mg/dL 11/02/2024 6:43 AM EDT [facility] Creatinine 0.94 0.50 - 1.20 mg/dL 11/02/2024 6:43 AM EDT [facility] Glucose 138(H) 65 - 99 mg/dL 11/02/2024 6:43 AM EDT [facility] Calcium 8.9 8.6 - 10.5 mg/dL 11/02/2024 6:43 AM EDT [facility] Anion Gap 11 5 - 15 11/02/2024 6:43 AM EDT [facility] eGFR 63 >=60 mL/min/1. 73m2 11/02/2024 6:43 AM EDT [facility] Comment:The estimated glomer [...] peripheral vein / Unknown Venipuncture / Unknown 11/02/2024 6:01 AM EDT 11/02/2024 6:12 AM EDT us Radha Elias MD LAB BLOOD ORDERABLES Ambar eastman Result Performing Organization Address City/State/[facility] Co de Phone Number [facility] [address] [place] [address], * ELECTRICAL WIRER PICC and Midline (11/01/2024 2:39 PM EDT) Narrative Bela Ceja RN - 11/01/2024 2:39 PM EDT Bela Ceja RN ? 11/01/2024 ??2:41 PM Midline catheter insertion Date/Time: 11/01/2024 2:39 PM Performed by: Nicolas Roberts RN ??Reason for Insertion: intravenous access and intravenous antibiotics ?Successful placement: yes ?? [place] Protocol ??Patient identity confirmed: ??Name and MRN on the patient's armband ??Written consent obtained?: n/a ?? Pre-Procedure Central Line Bundle ??Skin preparation: ??Chlorhexidine with alcohol ??Ultrasound: Sterile sheath and gel used ?? Site Assessment ??Vein Accessed: ??Left basilic vein ??Initial Arm Circumference (cm): ??28 Procedure Details ??Local Anesthetic: ??None ??Ultrasound guidance: yes ?Number of attempts: ??1 ??Blood return in all lumens?: Yes ?All lumens flush freely?: Yes ?Catheter Secured: ??Catheter securement device Device Details ??Catheter Type: ??Powerglide Pro Midline ??Catheter Lumens: ??Single lumen ??Catheter Size (ga): ??20 ??Lot #: ??[id number] ??Catheter Total Length (cm): ??10 ??Catheter External Length (cm): ??0 Post-Procedure Central Line Bundle ??Guidewire Removal Confirmed?: Yes ?All Ports Capped?: Yes ?Verification of Line Placement: ??Not applicable ??Dressing Applied: Transparent and Antimicrobial Post-Procedure Details ??Patient tolerance of procedure: ??Tolerated well, no immediate complications ??Significant events: ??None ??Plan: ??Midline ready for immediate use us Radha Elias MD IV THERAPY ORDERABLES Fin al Result * (ABNORMAL) [place] & Lambda, Free w/Ratio (10/31/2024 6:11 AM EDT) Pathologist [facility] [place] Light Chain, Free, Serum 26.5(H) 3.3 - 19.4 mg/L 11/01/2024 10:00 AM EDT [facility] Lambda Light Chain, Free, Serum 28.1(H) 5.7 - 26.3 mg/L 11/01/2024 10:00 AM EDT [facility] [place]/Lambda Light Chains Free With Ratio 0.94 0.26 - 1.65 11/01/2024 10:00 AM EDT [facility] Comment: Free kappa/lambda ratio in serum of normal individuals is 0.26-1.65. Excess production of free kappa or lambda chains can alter this ratio. Monoclonal free light chains are found in serum of patients with multiple myeloma, Waldenstrom's macroglobulinemia, mu-heavy chain disease, primary amyloidosis, light chain deposition disease, monoclonal gammopathy of undetermined significance, and lymphoproliferative disorders. Measurement of free light chain concentration in serum is useful for diagnosis, prognosis, monitoring disease activity and following response to therapy of these disorders. Blood Structure of peripheral vein / Unknown Venipuncture / Unknown 10/31/2024 6:11 AM EDT 10/31/2024 6:38 AM EDT [facility] - 11/01/2024 10:00 AM EDT [facility] Received Date: Radha Elias MD LAB BLOOD ORDERABLES Ambar l Result [facility] [address] [facility] [address], [place] [address], [facility] [address], [place] [address], [place] [phone] * (ABNORMAL) Protein Electrophoresis w/Reflex to Immunofixation, Serum (10/31/2024 6:11 AM EDT) Protein, Total 5.0(L) 6.1 - 8.1 g/dL 11/01/2024 8:27 PM EDT [facility] Albumin 2.5(L) 3.8 - 4.8 g/dL 11/01/2024 8:27 PM EDT [facility] Alpha 1 Globulin 0.5(H) 0.2 - 0.3 g/dL 11/01/2024 8:27 PM EDT [facility] Alpha 2 Globulin 0.8 0.5 - 0.9 g/dL 11/01/2024 8:27 PM EDT [facility] Beta 1 Globulin 0.4 0.4 - 0.6 g/dL 11/01/2024 8:27 PM EDT [facility] Beta 2 Globulin 0.3 0.2 - 0.5 g/dL 11/01/2024 8:27 PM EDT [facility] Gamma Globulin 0.5(L) 0.8 - 1.7 g/dL 11/01/2024 8:27 PM EDT [facility] Interpretation See Comments 11/01/2024 8:27 PM EDT [facility] Comment: Selective protein loss pattern, suggestive of nephrotic syndrome Blood Structure of peripheral vein / Unknown Venipuncture / Unknown 10/31/2024 6:11 AM EDT 10/31/2024 6:38 AM EDT Narrative TIMOTHY CARMEN - 11/01/2024 8:27 PM EDT [facility] Received Date: Radha Elias MD LAB BLOOD ORDERABLES Ambar l Result TIMOTHY CARMEN [address] [facility] [address] Floor, [address] [place] [address], [place] [phone] [facility] [address], [place] [address], [place] [phone] * [place] Modified Barium Swallow (10/30/2024 10:26 AM EDT) Anatomical Region Laterality Modality Head and Neck Radio Fluoroscop y 10/31/2024 12:1 5 PM EDT Impressions 10/31/2024 12:29 PM EDT Patient tolerated the above consistencies. A full report will be provided through the department of speech pathology. If this radiology report contains a blank impression section, it is an incomplete radiology report. ??Please contact the interpreting radiologist or applicable radiology division as soon as possible to obtain the completed interpretation. ? Workstation ID: [id number] Narrative 10/31/2024 12:29 PM EDT EXAMINATION: Barium swallow, swallowing function (cine swallowing function study). INDICATION: Dysphagia. COMPARISON: No priors TECHNIQUE: A modified barium swallow was performed utilizing cinefluoroscopy in conjunction with speech pathology. The patient ingested different consistencies for this study. FINDINGS: IDDSI consistencies used: Level 0 (thin): Used?: Yes. Trace aspiration Level 4 (extremely thick): Used?: Yes. Tolerated without penetration or aspiration. Level 7 (solid): Used?: Yes. Tolerated without penetration or aspiration. A radiologist was not present for the procedure. Resulting Agency Comment [id number] Procedure Note Julita Ayon MD - 10/31/2024 EXAMINATION: Barium swallow, swallowing function (cine swallowing functionstudy). INDICATION: Dysphagia. COMPARISON: No priors TECHNIQUE: A modified barium swallow was performed utilizingcinefluoroscopy in conjunction with speech pathology. The patient ingesteddifferent consistencies for this study. FINDINGS: IDDSI consistencies used: Level 0 (thin): Used?: Yes. Trace aspiration Level 4 (extremely thick): Used?: Yes. Tolerated without penetration oraspiration. Level 7 (solid): Used?: Yes. Tolerated without penetration oraspiration. A radiologist was not present for the procedure. IMPRESSION: Patient tolerated the above consistencies. A full report will be provided through the department of speechpathology. If this radiology report contains a blank impression section, it is anincomplete radiology report. Please contact the interpreting radiologistor applicable radiology division as soon as possible to obtain thecompleted interpretation. Workstation ID: [id number] Radha Elias MD [facility] FLUOROSCOPY PROCEDURE S Final Result * XR Chest 2 vw. (10/30/2024 10:26 AM EDT) Anatomical Region Laterality Modality Body Computed Radiogr aphy 10/31/2024 3:39 PM EDT Impressions 10/31/2024 3:40 PM EDT Slight worsening interstitial edema throughout both lungs. Heart size mildly enlarged status post TAVR. Trace pleural effusion persists left lung base. No pneumothorax. If this radiology report contains a blank impression section, it is an incomplete radiology report. ??Please contact the interpreting radiologist or applicable radiology division as soon as possible to obtain the completed interpretation. ? Workstation ID: [id number] Narrative 10/31/2024 3:40 PM EDT COMPARISON: ??10/29/2023 FINDINGS AND Resulting Agency Comment [id number] Procedure Note Haseeb Art MD - 10/31/2024 COMPARISON: 10/29/2023 FINDINGS AND IMPRESSION: Slight worsening interstitial edema throughout both lungs. Heart sizemildly enlarged status post TAVR. Trace pleural effusion persists leftlung base. No pneumothorax. If this radiology report contains a blank impression section, it is anincomplete radiology report. Please contact the interpreting radiologistor applicable radiology division as soon as possible to obtain thecompleted interpretation. Workstation ID: [id number] Radha Elias MD [facility] XR PROCEDURES Final R esult * Reticulocytes (10/29/2024 6:13 AM EDT) Retic % 0.9 0.5 - 1.6 % 10/29/2024 6:25 AM EDT [facility] Retic # 0.03 0.02 - 0.08 10*6/uL 10/29/2024 6:25 AM EDT [facility] Blood Structure of peripheral vein / Unknown Venipuncture / Unknown 10/29/2024 6:13 AM EDT 10/29/2024 6:16 AM EDT Radha Chan DO LAB BLOOD ORDERABLES F inal Result Performing Organization Address City/[facility]/ZIP Co de Phone Number [facility] [address] [place] [phone], [place] * Osmolality, Serum (10/29/2024 6:13 AM EDT) Osmolality 295 279 - 295 mOsm/kg 10/29/2024 6:43 AM EDT [facility] Blood Structure of peripheral vein / Unknown Venipuncture / Unknown 10/29/2024 6:13 AM EDT 10/29/2024 6:16 AM EDT Radha Elias MD LAB BLOOD ORDERABLES Ambar l Result Performing Organization Address [facility] Co de Phone Number [facility] [address] [place] [address], [place] * Sodium, Random Urine with Creatinine (10/29/2024 2:29 AM EDT) Sodium, Urine <20 mmol/L 10/29/2024 3:24 AM EDT [facility] Creatinine, Urine 82 15 - 278 mg/dL 10/29/2024 3:24 AM EDT [facility] Sodium/Creatin ine, Urine Ratio 10/29/2024 3:24 AM EDT [facility] Comment:Unable to Calculate Urine Voided urine specimen / Unknown Non-Blood Collection / Unknown 10/29/2024 2:29 AM EDT 10/29/2024 2:37 AM EDT Radha Elias MD LAB URINE ORDERABLES Ambar l Result [facility] [address] [place] [address], [place] * Osmolality, Urine (10/29/2024 2:29 AM EDT) Pathologist [facility] Osmolality, Ur 441 70 - 900 mOsm/kg 10/29/2024 2:54 AM EDT [facility] Urine Voided urine specimen / Unknown Non-Blood Collection / Unknown 10/29/2024 2:29 AM EDT 10/29/2024 2:37 AM EDT Radha Elias MD LAB URINE ORDERABLES Ambar l Result Performing Organization Address [facility] Co de Phone Number [facility] [address] [place] [phone], [place] * MRSA/S aureus PCR, Nasal (10/29/2024 1:16 AM EDT) [facility] MRSA PCR, Nasal NOT DETECTED NOT DETECTED 10/30/2024 2:16 PM EDT [facility] S. aureus PCR, Nasal NOT DETECTED NOT DETECTED 10/30/2024 2:16 PM EDT [facility] Swab Nasal structure / Unknown Non-Blood Collection / Unknown 10/29/2024 1:16 AM EDT 10/29/2024 1:21 AM EDT Narrative [facility] - 10/30/2024 2:16 PM EDT [facility] Received Date:[id number] Radha Elias MD LAB BODY FLUIDS AND STOOL S ORDERABLES Final Result [facility] [address] [facility] [address], [place] [address], [place] [phone] [facility] [address], [place] [address], [place] [phone] * Lactic Acid, Plasma (10/28/2024 6:17 PM EDT) Lactic Acid 1.8 0.5 - 1.9 mmol/L 10/28/2024 7:06 PM EDT [facility] Comment: Sepsis Screening: Initial Lactate Level >2.0 mmol/L - Repeat Lactate Level within 3 hours. Initial Lactate Level >4.0 mmol/L - Repeat Lactate Level within 3 hours, Initiate Septic Shock Protocol. Blood Structure of peripheral vein / Unknown Venipuncture / Unknown 10/28/2024 6:17 PM EDT 10/28/2024 6:37 PM EDT Radha Elias MD LAB BLOOD ORDERABLES Ambar l Result Performing Organization Address City/[facility]/ZIP Co de Phone Number [facility] [address] [place] [address], [place] * (ABNORMAL) Lactic Acid, Plasma (10/28/2024 2:27 PM EDT) Lactic Acid 2.4(H) 0.5 - 1.9 mmol/L 10/28/2024 2:56 PM EDT [facility] Blood Structure of peripheral vein / Unknown Venipuncture / Unknown 10/28/2024 2:27 PM EDT 10/28/2024 2:32 PM EDT us Galileo Vincent DO LAB BLOOD ORDERABLES Final Res ult Performing Organization Address City/[facility]/ZIP Co de Phone Number [facility] [address] [place] [phone], * Clinician: Transfuse Red Blood Cells (10/28/2024 2:19 PM EDT) Galileo Vincent DO BLOOD TRANSFUSION ORDERABLES F inal Result * (ABNORMAL) Lactic Acid (w/Repeat if >2) (10/28/2024 11:14 AM EDT) Lactic Acid 2.1(H) 0.5 - 1.9 mmol/L 10/28/2024 11:41 AM EDT [facility] Blood Structure of peripheral vein / Unknown Venipuncture / Unknown 10/28/2024 11:14 AM EDT 10/28/2024 11:14 AM EDT Galileo Vincent LAB BLOOD ORDERABLES Final Res ult [facility] [address] [place] [address], [place] * (ABNORMAL) POCT I-STAT Lactate W/VBG, interfaced (10/28/2024 10:38 AM EDT) Only the most recent of2 resultswithin the time period is included. Sample Type, POCT Venous 10/28/2024 10:46 AM EDT [facility] Lactate, POCT 1.65 0.9 - 1.7 mmol/L 10/28/2024 10:46 AM EDT [facility] pH, POCT 7.39 7.31 - 7.41 pH 10/28/2024 10:46 AM EDT [facility] pCO2, POCT 28.5(L) 41 - 51 mm Hg 10/28/2024 10:46 AM EDT [facility] pO2, POCT 61(H) 35 - 40 mm Hg 10/28/2024 10:46 AM EDT [facility] Base Excess, POCT -8(L) 0 - 3 mmol/L 10/28/2024 10:46 AM EDT [facility] HCO3, POCT 17.2(L) 23 - 28 mmol/L 10/28/2024 10:46 AM EDT [facility] TCO2, POCT 18(L) 24 - 29 mmol/L 10/28/2024 10:46 AM EDT [facility] Saturated O2, POCT 91(H) 70 - 75 % 10/28/2024 10:46 AM EDT [facility] Trino's Test, POCT N/A 10/28/2024 10:46 AM EDT [facility] Blood 10/28/2024 10:3 8 AM EDT 10/28/2024 10:46 AM EDT [facility] POCT ORDERABLES - DEVICE F inal Result [facility] [address] [place] [address], * Blood Culture (10/28/2024 9:18 AM EDT) Only the most recent of2 resultswithin the time period is included. Culture No growth after 5 days 11/02/2024 3:14 PM EDT [facility] Blood Structure of peripheral vein / Unknown Venipuncture / Unknown 10/28/2024 9:18 AM EDT 10/28/2024 9:29 AM EDT Narrative [facility] - 11/02/2024 3:14 PM EDT [facility] Received Date: MICRO NUMBER: [id number] SPECIMEN QUALITY: Adequate SOURCE: BLOOD VENOUS, PERIPHERAL STATUS: FINAL COMMENT: Aerobic and anaerobic bottle received. [facility] - GENERAL ORD ERABLES Final Result [facility] [address] [facility] [address], [place] [address], [place] [phone] [facility] [address] [facility] 3rd [address], [place] [address], [place] [phone] * Blood Bank: Prepare Red Blood Cells Transfusion indications: HCT<= 24% or Hgb <= 8 gm/dL and symptomatic; Irradiated?: No; Special requirements: Leukoreduced: 1 Units (10/28/2024 9:14 AM EDT) Product Code [id number] [facility] OD [facility] IN[facility] Unit Number [id number] M [facility]OD B[facility] INFCE Unit ABO A [facility] Unit RH NEG [facility] B[facility] Crossmatch Compatible MEM BLOO D BANK INFCE Dispense Status Presumed Transfuse [facility] Blood Expiration Date [id number] [facility] Blood Type Barcode 0600 [facility] Dispensed Volume 282 ML [facility] Other 10/28/2024 9:14 AM EDT 10/28/2024 9:20 AM EDT Galileo Vincent DO BLOOD BANK PRODUCT ORDERABLES Final Result Performing Organization Address [facility] Co de Phone Number [facility] [address] [place] [address], * (ABNORMAL) Iron Saturation (10/28/2024 9:00 AM EDT) Iron Saturation 1:12 PM EDT [facility] Comment:Unable to Calculate Iron <10(L) 30 - 160 ug/dL 10/28/2024 1:12 PM EDT [facility] Transferrin 306 200 - 360 mg/dL 10/28/2024 1:12 PM EDT [facility] Total Iron Binding Capacity 383 255 - 450 ug/dL 10/28/2024 1:12 PM EDT [facility] Blood Structure of peripheral vein / Unknown Venipuncture / Unknown 10/28/2024 9:00 AM EDT 10/28/2024 9:17 AM EDT Radha Chan DO LAB BLOOD ORDERABLES F inal Result Performing Organization Address City/[facility]/ZIP Co de Phone Number [facility] [address] [place] [address], [place] * (ABNORMAL) Manual Differential (10/28/2024 9:00 AM EDT) Neutrophil %, Manual 91 % 10/28/2024 9:57 AM EDT [facility] Band % 3 0 - 7 % 10/28/2024 9:57 AM EDT [facility] Lymphocyte %, Manual 2 % 10/28/2024 9:57 AM EDT [facility] Monocyte %, Manual 4 % 10/28/2024 9:57 AM EDT [facility] Eosinophil %, Manual 0 % 10/28/2024 9:57 AM EDT [facility] Basophil %, Manual 0 % 10/28/2024 9:57 AM EDT [facility] Total Neutrophil #, Manual 12.13(H) 1.50 - 7.80 10*3/uL 10/28/2024 9:57 AM EDT [facility] Bands #,Manual 0.39 10*3/uL 10/28/2024 9:57 AM EDT [facility] Total Lymph #, Manual 0.26(L) 0.85 - 3.90 10*3/uL 10/28/2024 9:57 AM EDT [facility] Monocyte #, Manual 0.52 0.20 - 0.95 10*3/uL 10/28/2024 9:57 AM EDT [facility] Eosinophil #, Manual 0.00(L) 0.02 - 0.50 10*3/uL 10/28/2024 9:57 AM EDT [facility] Basophil #, Manual 0.00 0.00 - 0.20 10*3/uL 10/28/2024 9:57 AM EDT [facility] Platelet Estimate Adequate Adequate 10/28/2024 9:57 AM EDT [facility] RBC Morphology Present(A) Normal, No clinically significant RBC morphology present (ICSH guidelines, 2015). 10/28/2024 9:57 AM EDT [facility] Microcytes 2+(A) Not Present 10/28/2024 9:57 AM EDT [facility] Total Cells Counted 115 10/28/2024 9:57 AM EDT [facility] Blood Structure of peripheral vein / Unknown Venipuncture / Unknown 10/28/2024 9:00 AM EDT 10/28/2024 9:17 AM EDT [facility] BLOOD ORDERABLES Final Res ult Performing Organization Address City/[facility]/ZIP Co de Phone Number [facility] [address] [place] [address], * Type and Screen (10/28/2024 9:00 AM EDT) ABO Blood Type A 10/28/2024 10:05 AM EDT [facility] RH Type Negative 10/28/2024 10:05 AM EDT [facility] Expiration Date/Time 2024-10-31 23:59 10/28/2024 10:05 AM EDT [facility] Antibody Screen Negative 10/28/2024 10:05 AM EDT [facility] Blood Structure of peripheral vein / Unknown Venipuncture / Unknown 10/28/2024 9:00 AM EDT 10/28/2024 9:20 AM EDT [facility] [employer] [facility] B[facility] B[facility] TEST ORDERABLES Edited Result - Final Performing Organization Address City/[facility]/ZIP Co de Phone Number [facility] [address] [place] [address], * (ABNORMAL) Folate (10/28/2024 9:00 AM EDT) Folate 30.2(H) 4.8 - 24.2 ng/mL 10/28/2024 1:39 PM EDT [facility] Blood Structure of peripheral vein / Unknown Venipuncture / Unknown 10/28/2024 9:00 AM EDT 10/28/2024 9:17 AM EDT Radha Chan DO LAB BLOOD ORDERABLES F inal Result Performing Organization Address City/[facility]/ZIP Co de Phone Number [facility] [address] [place] [address], [place] * Ferritin (10/28/2024 9:00 AM EDT) Ferritin 66.8 11.0 - 306.0 ng/mL 10/28/2024 1:12 PM EDT [facility] Blood Structure of peripheral vein / Unknown Venipuncture / Unknown 10/28/2024 9:00 AM EDT 10/28/2024 9:17 AM EDT Radha Chan DO LAB BLOOD ORDERABLES F inal Result Performing Organization Address City/[facility] Co de Phone Number [facility] [address] [place] [address], [place] * Vitamin B12 (10/28/2024 9:00 AM EDT) Vitamin B12 613 232 - 1,245 pg/mL 10/28/2024 1:12 PM EDT [facility] Blood Structure of peripheral vein / Unknown Venipuncture / Unknown 10/28/2024 9:00 AM EDT 10/28/2024 9:17 AM EDT Radha Chan DO LAB BLOOD ORDERABLES F inal Result Performing Organization Address City/[facility]/ZIP Co de Phone Number [facility] [address] [place] [phone], [place] * XR Chest Portable 1 View (10/28/2024 5:27 AM EDT) Anatomical Region Laterality Modality Body Computed Radiogr aphy 10/28/2024 5:52 AM EDT Impressions 10/28/2024 5:57 AM EDT Some faint patchy opacities in the mid right lung could be secondary to developing infection. ??Prominent pulmonary interstitium may be secondary to hypoaeration versus mild pulmonary edema. If this radiology report contains a blank impression section, it is an incomplete radiology report. ??Please contact the interpreting radiologist or applicable radiology division as soon as possible to obtain the completed interpretation. ? Workstation ID: [id number] Narrative 10/28/2024 5:57 AM EDT XR CHEST PORTABLE 1 VIEW COMPARISON: Abdomen pelvis CT from earlier the same day. FINDINGS: Mild left basilar patchy opacities. ??Some ill-defined patchy opacities in the mid right lung. ??Mildly prominent pulmonary interstitium. There is no pleural effusion. There is no pneumothorax. The heart is normal in size. ??There are dense mitral annular calcifications. Status post aortic valve replacement. ??Degenerative cirrhosis of the aortic arch. There are no acute osseous abnormalities. Resulting Agency Comment [id number] Procedure Note Janiya Palmer MD - 10/28/2024 XR CHEST PORTABLE 1 VIEW COMPARISON: Abdomen pelvis CT from earlier the same day. FINDINGS: Mild left basilar patchy opacities. Some ill-defined patchy opacities inthe mid right lung. Mildly prominent pulmonary interstitium. There is nopleural effusion. There is no pneumothorax. The heart is normal in size. There are dense mitral annularcalcifications. Status post aortic valve replacement. Degenerativecirrhosis of the aortic arch. There are no acute osseous abnormalities. IMPRESSION: Some faint patchy opacities in the mid right lung could be secondary todeveloping infection. Prominent pulmonary interstitium may be secondaryto hypoaeration versus mild pulmonary edema. If this radiology report contains a blank impression section, it is anincomplete radiology report. Please contact the interpreting radiologistor applicable radiology division as soon as possible to obtain thecompleted interpretation. Workstation ID: [id number] us Lester Wilde MD IMG XR PROCEDURES Final Res ult * COVID-19, Flu A/B & RSV RNA PCR, Symptomatic (10/28/2024 5:14 AM EDT) PCR, SARS CoV-2 RNA Not Detected Not Detected [employer] 10/28/2024 6:11 AM EDT [facility] Comment:A Not Detected (Nega tive) test result is indicative of the absence of SARS-CoV-2 RNA at the level of LoD (Limit of Detection). A negative result does not rule out the possibility of COVID-19 and should not be used as the sole basis for treatment or patient management decisions. If COVID-19 is still suspected, based on exposure history together with other clinical findings, re-testing should be considered. Flu A RNA PCR Not Detected Not Detected [employer] 10/28/2024 6:11 AM EDT [facility] Comment:Negative results do not preclude infection and should not be used as the sole basis for diagnosis, treatment or other patient management decisions. Negative results must be combined with clinical observations, patient history, and/or epidemiological information. Flu B RNA PCR Not Detected Not Detected [employer] 10/28/2024 6:11 AM EDT [facility] Comment:Negative results do not preclude infection and should not be used as the sole basis for diagnosis, treatment or other patient management decisions. Negative results must be combined with clinical observations, patient history, and/or epidemiological information. RSV RNA PCR Not Detected Not Detected [employer] 10/28/2024 6:11 AM EDT [facility] Comment:Negative results do not preclude infection and should not be used as the sole basis for diagnosis, treatment or other patient management decisions. Negative results must be combined with clinical observations, patient history, and/or epidemiological information. Swab (Nares) Non-Blood Collection / Unknown 10/28/2024 5:14 AM EDT 10/28/2024 5:19 AM EDT Narrative [facility] - 10/28/2024 6:11 AM EDT This test was developed, validated and its performance characteristics determined by [facility]. This test has not been cleared or approved by the U.S. Food and Drug Administration (FDA). FDA Policy for Diagnostic Tests for Coronavirus Disease-2019 during the Public Health Emergency issued September 25, 2019, is followed. us Lester Wilde MD LAB BODY FLUIDS AND STOOLS ORDERABLES Final Result Performing Organization Address City/[facility]/ZIP Co de Phone Number [facility] [address] [place] [phone], [place] * [place] Top, Urine (10/28/2024 2:47 AM EDT) Extra Tube Hold for add-ons. 10/28/2024 7:05 AM EDT [facility] Comment:Auto resulted. Urine Urine specimen collection, clean catch / Unknown Non-Blood Collection / Unknown 10/28/2024 2:47 AM EDT 10/28/2024 2:50 AM EDT us Renard Hernandez MD LAB URINE ORDERABLES Final Res ult Performing Organization Address [facility] Co de Phone Number [facility] [address] [place] [address], [place] * (ABNORMAL) Urinalysis W/Reflex to Microscopic & Culture (10/28/2024 2:47 AM EDT) Color, Urine Yellow Colorless, Light Yellow, Yellow, Dark Yellow 10/28/2024 3:24 AM EDT [facility] Clarity, Urine Cloudy(A) Clear 10/28/2024 3:24 AM EDT [facility] Specific [place], Urine 1.024 <1.030 10/28/2024 3:24 AM EDT [facility] pH, Urine 6.0 4.6 - 8.0 10/28/2024 3:24 AM EDT [facility] Protein, Urine 1+(A) Negative 10/28/2024 3:24 AM [facility] Glucose, Urine Normal Normal 10/28/2024 3:24 AM [facility] Ketones, Urine Negative Negative 10/28/2024 3:24 AM [facility] [facility] Bilirubin, Urine Negative Negative 10/28/2024 3:24 AM [facility] Blood, Urine 1+(A) Negative 10/28/2024 3:24 AM [facility] Nitrite, Urine Negative Negative 10/28/2024 3:24 AM [facility] Urobilinogen, Urine Normal Normal 10/28/2024 3:24 AM [facility] Leukocyte Esterase, Urine 3+(A) Negative 10/28/2024 3:24 AM [facility] WBC, Urine >182(H) 0 - 2 /HPF 10/28/2024 3:24 AM [facility] WBC Clumps, Urine Few /HPF 10/28/2024 3:24 AM [facility] RBC, Urine 12(H) 0 - 2 /HPF 10/28/2024 3:24 AM [facility] Hyaline Casts, Urine 0 0 - 2 /LPF 10/28/2024 3:24 AM [facility] Squamous Epithelial Cells, Urine 2 /HPF 10/28/2024 3:24 AM [facility] Trans Epithelial Cells, Urine 1 /HPF 10/28/2024 3:24 AM [facility] Bacteria, Urine Moderate(A) None /HPF /HPF 10/28/2024 3:24 AM [facility] Urine Urine specimen collection, clean catch / Unknown Non-Blood Collection / Unknown 10/28/2024 2:47 AM EDT 10/28/2024 2:50 AM EDT us Renard Hernandez MD LAB URINE ORDERABLES Final Res ult [facility] [address] [place] [address], [place] * (ABNORMAL) Urine Culture, Routine (10/28/2024 2:47 AM EDT) Culture Results Updated 10/31/2024 5:55 AM EDT [facility] [employer] Culture Escherichia coli(A) 10/31/2024 5:55 AM EDT [facility] Comment:Greater than 100,000 CFU/mL of Escherichia coli Culture Klebsiella pneumoniae(A) 10/31/2024 5:55 AM EDT [facility] Comment:Greater than 100,000 CFU/mL of Klebsiella pneumoniae Urine Urine specimen collection, clean catch / Unknown Non-Blood Collection / Unknown 10/28/2024 2:47 AM EDT 10/28/2024 3:24 AM EDT [facility] - 10/31/2024 5:55 AM EDT Petsy Received Date: MICRO NUMBER: [id number] SPECIMEN QUALITY: Adequate SOURCE: URINE CLEAN CATCH STATUS: FINAL Organism Antibiotic Method Susceptibility Escherichia coli Amikacin <=2: Susceptible Escherichia coli Ampicillin <=2: Susceptible Escherichia coli Ampicillin + Sulbactam <=2: Susceptible Escherichia coli Cefazolin <=4: Not reported Comment: For infections other than uncomplicated UTI caused by E. coli, K. pneumoniae or P. mirabilis: Cefazolin is resistant if YARED > or = 8 mcg/mL. (Distinguishing susceptible versus intermediate for isolates with YARED < or = 4 mcg/mL requires additional testing.) For uncomplicated UTI caused by E. coli, K. pneumoniae or P. mirabilis: Cefazolin is susceptible if YARED <32 mcg/mL and predicts susceptible to the oral agents cefaclor, cefdinir, cefpodoxime, cefprozil, cefuroxime, cephalexin and loracarbef. Escherichia coli Ceftazidime <=1: Susceptible Escherichia coli Cefepime <=1: Susceptible Escherichia coli Ceftriaxone <=1: Susceptible Escherichia coli Ciprofloxacin <=0.25: Susceptible Escherichia coli Ertapenem <=0.5: Susceptible Escherichia coli Gentamicin <=1: Susceptible Escherichia coli Meropenem <=0.25: Susceptible Escherichia coli Nitrofurantoin <=16: Susceptible Escherichia coli Piperacillin + Tazobactam <=4: Susceptible Escherichia coli Tobramycin <=1: Susceptible Escherichia coli Trimethoprim + Sulfamethoxazole <=20: Susceptible Klebsiella pneumoniae Amikacin <=2: Susceptible Klebsiella pneumoniae Ampicillin >=32: Resistant Klebsiella pneumoniae Ampicillin + Sulbactam 4: Susceptible Klebsiella pneumoniae Cefazolin <=4: Not reported Klebsiella pneumoniae Ceftazidime <=1: Susceptible Klebsiella pneumoniae Cefepime <=1: Susceptible Klebsiella pneumoniae Ceftriaxone <=1: Susceptible Klebsiella pneumoniae Ciprofloxacin <=0.25: Susceptible Klebsiella pneumoniae Ertapenem <=0.5: Susceptible Klebsiella pneumoniae Gentamicin <=1: Susceptible Klebsiella pneumoniae Meropenem <=0.25: Susceptible Klebsiella pneumoniae Nitrofurantoin 128: Resistant Klebsiella pneumoniae Piperacillin + Tazobactam <=4: Susceptible Klebsiella pneumoniae Tobramycin <=1: Susceptible Klebsiella pneumoniae Trimethoprim + Sulfamethoxazole <=20: Susceptible Comment: Legend: S = Susceptible ??I = Intermediate R = Resistant ??NS = Not susceptible SDD = Susceptible Dose Dependent * = Not Tested ??NR = Not Reported NN = See Therapy Comments Radha Chan DO LAB MICROBIOLOGY - GEN ERAL ORDERABLES Final Result [facility] [address] [facility] [address], [place] [address], [place] [phone] [facility] [address] [facility] [address], [place] [address], [place] [phone] * CT Abdomen Pelvis with Contrast (10/28/2024 2:21 AM EDT) Anatomical Region Laterality Modality Body Computed Tomogra phy 10/28/2024 3:23 AM EDT Impressions 10/28/2024 4:10 AM EDT 1. ??Circumferential bladder wall thickening with moderate perivesicular fat infiltration. ??Ill-defined mildly complex fluid adjacent to the left anterosuperior bladder. ??Correlation with urinalysis recommended. 2. ??Moderate rhodes colonic stool burden. 3. ??Additional nonacute findings as above. END OF IMPRESSION If this radiology report contains a blank impression section, it is an incomplete radiology report. ??Please contact the interpreting radiologist or applicable radiology division as soon as possible to obtain the completed interpretation. ? Workstation ID: [id number] Up-to-date CT equipment and radiation dose reduction techniques were employed. CTDIvol: 18.7 mGy. DLP: 948 mGy-cm. Narrative 10/28/2024 4:10 AM EDT PROCEDURE: CT ABDOMEN PELVIS W CONTRAST INDICATION: 79 years Female who presents with/for RLQ abdominal pain (Age >= 14y) - lower abdominal pain, RLQ pain TECHNIQUE: As Above. This CT scan was performed with one or more of the following dose optimization techniques: iterative reconstruction, automatic exposure control, and/or manual adjustment of mAs and kVp according to the patient's size. COMPARISON: CT abdomen and pelvis 08/31/2023 FINDINGS: Lower Thorax: Coarse mitral annular calcifications. ??Left basilar subsegmental atelectasis. Liver: Cirrhotic morphology. Gallbladder: Surgically absent. Bile Ducts: No biliary dilatation. Pancreas: No ductal dilatation. Spleen: Parenchymal calcifications suggestive of prior granulomatous disease. Adrenals: Unremarkable. Kidneys: Simple appearing left renal cystic lesion for which no imaging follow- up is recommended per ACR guidelines. Bladder: Circumferential bladder wall thickening with moderate perivesicular fat infiltration. ??Ill-defined mildly complex fluid adjacent to the left anterosuperior bladder. Reproductive: Pessary. ??Uterus not visualized. Bowel: No bowel wall thickening or obstruction. Appendix not visualized. Moderate rhodes colonic stool burden. Peritoneum/Retroperitoneum: No pneumoperitoneum or significant free fluid. Lymph Nodes: Similar appearance of prominent but not enlarged by size criteria retroperitoneal lymph nodes. Vasculature: Moderate atherosclerotic disease. Musculoskeletal: No acute osseous findings. Diffuse demineralization of the osseous structures. Resulting Agency Comment [id number] Procedure Note Richard Newton MD - 04/19/2025 PROCEDURE: CT ABDOMEN PELVIS W CONTRAST INDICATION: 79 years Female who presents with/for RLQ abdominal pain (Age>= 14y) - lower abdominal pain, RLQ pain TECHNIQUE: As Above. This CT scan was performed with one or more of thefollowing dose optimization techniques: iterative reconstruction,automatic exposure control, and/or manual adjustment of mAs and kVpaccording to the patient's size. COMPARISON: CT abdomen and pelvis 08/31/2023 FINDINGS: Lower Thorax: Coarse mitral annular calcifications. Left basilarsubsegmental atelectasis. Liver: Cirrhotic morphology. Gallbladder: Surgically absent. Bile Ducts: No biliary dilatation. Pancreas: No ductal dilatation. Spleen: Parenchymal calcifications suggestive of prior granulomatousdisease. Adrenals: Unremarkable. Kidneys: Simple appearing left renal cystic lesion for which no imagingfollow-up is recommended per ACR guidelines. Bladder: Circumferential bladder wall thickening with moderateperivesicular fat infiltration. Ill-defined mildly complex fluid adjacentto the left anterosuperior bladder. Reproductive: Pessary. Uterus not visualized. Bowel: No bowel wall thickening or obstruction. Appendix not visualized.Moderate rhodes colonic stool burden. Peritoneum/Retroperitoneum: No pneumoperitoneum or significant freefluid. Lymph Nodes: Similar appearance of prominent but not enlarged by sizecriteria retroperitoneal lymph nodes. Vasculature: Moderate atherosclerotic disease. Musculoskeletal: No acute osseous findings. Diffuse demineralization ofthe osseous structures. IMPRESSION: 1. Circumferential bladder wall thickening with moderate perivesicularfat infiltration. Ill-defined mildly complex fluid adjacent to the leftanterosuperior bladder. Correlation with urinalysis recommended. 2. Moderate rhodes colonic stool burden. 3. Additional nonacute findings as above. END OF IMPRESSION If this radiology report contains a blank impression section, it is anincomplete radiology report. Please contact the interpreting radiologistor applicable radiology division as soon as possible to obtain thecompleted interpretation. Workstation ID: [id number] Up-to-date CT equipment and radiation dose reduction techniques wereemployed. CTDIvol: 18.7 mGy. DLP: 948 mGy-cm. us Renard Hernandez MD IM CT PROCEDURES Final Result * XR Hip Right 2+ vw W Pelvis (10/28/2024 1:50 AM EDT) Anatomical Region Laterality Modality Body, Pelvis, Hip Right Computed Radio graphy 10/28/2024 4:16 AM EDT Impressions 10/28/2024 4:17 AM EDT No evidence of acute bony abnormality. If this radiology report contains a blank impression section, it is an incomplete radiology report. ??Please contact the interpreting radiologist or applicable radiology division as soon as possible to obtain the completed interpretation. ? Workstation ID: [id number] Narrative 10/28/2024 4:17 AM EDT COMPARISONS: None. FINDINGS: Hip joint spaces are only mildly narrowed. ??Mild narrowing and degenerative change of the pubic symphysis. ??Mild sacroiliac degenerative change. ??Bones appear probably demineralized. ??No evidence of fracture, dislocation or lysis. ??Mild vascular calcification. Resulting Agency Comment [id number] Procedure Note Sid Valenzuela MD - 10/28/2024 COMPARISONS: None. FINDINGS: Hip joint spaces are only mildly narrowed. Mild narrowing anddegenerative change of the pubic symphysis. Mild sacroiliac degenerativechange. Bones appear probably demineralized. No evidence of fracture,dislocation or lysis. Mild vascular calcification. IMPRESSION: No evidence of acute bony abnormality. If this radiology report contains a blank impression section, it is anincomplete radiology report. Please contact the interpreting radiologistor applicable radiology division as soon as possible to obtain thecompleted interpretation. Workstation ID: [id number] Renard Hernandez MD IMG XR PROCEDURES Final Result * [place]jada Top (10/28/2024 1:02 AM EDT) Extra Tube Hold for add-ons. 10/28/2024 5:05 AM EDT [facility] Comment:Auto resulted. Blood Structure of peripheral vein / Unknown 10/28/2024 1:02 AM EDT 10/28/2024 1:02 AM EDT Renard Hernandez MD LAB BLOOD ORDERABLES Final Res ult Performing Organization Address City/[facility] Co de Phone Number [facility] [address] [place] [id number], [place] * Lavender Top (10/28/2024 1:02 AM EDT) Extra Tube Hold for add-ons. 10/28/2024 5:05 AM EDT [facility] Comment:Auto resulted. Blood Structure of peripheral vein / Unknown 10/28/2024 1:02 AM EDT 10/28/2024 1:02 AM EDT Renard Hernandez MD LAB BLOOD ORDERABLES Final Res ult Performing Organization Address [facility] de Phone Number [facility] [address] [place] [address], [place] * Magnesium (10/28/2024 12:58 AM EDT) MG 1.8 1.6 - 2.4 mg/dL 10/28/2024 1:35 AM EDT [facility] Blood Structure of peripheral vein / Unknown Venipuncture / Unknown 10/28/2024 12:58 AM EDT 10/28/2024 1:01 AM EDT Renard Hernandez MD LAB BLOOD ORDERABLES Final Res ult Performing Organization Address City/[facility]/ZIP Co de Phone Number [facility] [address] [place] [phone], [place] * Lipase (10/28/2024 12:58 AM EDT) Lipase 28 13 - 60 U/L 10/28/2024 1:35 AM EDT [facility] Blood Structure of peripheral vein / Unknown Venipuncture / Unknown 10/28/2024 12:58 AM EDT 10/28/2024 1:01 AM EDT us Renard Hernandez MD LAB BLOOD ORDERABLES Final Res ult [facility] [address] [place] [address], [place] * (ABNORMAL) CMP - Comprehensive Metabolic Panel (10/28/2024 12:58 AM EDT) NA 128(L) 135 - 145 mmol/L 10/28/2024 1:35 AM EDT [facility] K 4.7 3.5 - 5.3 mmol/L 10/28/2024 1:35 AM EDT [facility] Cl 96(L) 98 - 107 mmol/L 10/28/2024 1:35 AM EDT [facility] CO2 17(L) 22 - 32 mmol/L 10/28/2024 1:35 AM EDT [facility] Anion Gap 15 5 - 15 10/28/2024 1:35 AM EDT [facility] Glucose 160(H) 65 - 99 mg/dL 10/28/2024 1:35 AM EDT [facility] Creatinine 2.23(H) 0.50 - 1.20 mg/dL 10/28/2024 1:35 AM EDT [facility] Calcium 9.5 8.6 - 10.5 mg/dL 10/28/2024 1:35 AM EDT [facility] Total Protein 6.6 6.0 - 8.0 g/dL 10/28/2024 1:35 AM EDT [facility] Albumin 3.5 3.5 - 5.2 g/dL 10/28/2024 1:35 AM EDT [facility] Bilirubin, Total 1.2 0.2 - 1.2 mg/dL 10/28/2024 1:35 AM EDT [facility] Alkaline Phosphatase 94 35 - 129 U/L 10/28/2024 1:35 AM EDT [facility] AST 37 10 - 40 U/L 10/28/2024 1:35 AM EDT [facility] ALT 9(L) 10 - 40 U/L 10/28/2024 1:35 AM EDT [facility] BUN 67(H) 7 - 23 mg/dL 10/28/2024 1:35 AM EDT [facility] eGFR 22(L) >=60 mL/min/1 .73m2 10/28/2024 1:35 AM EDT [facility] Comment:The estimated glomer [...] of Race in Diagnosing Kidney Disease . Globulin, Total 3.1 2.1 - 4.2 g/dL 10/28/2024 1:35 AM EDT [facility] A/G Ratio 1.1(L) 1.5 - 3.0 10/28/2024 1:35 AM EDT [facility] Blood Structure of peripheral vein / Unknown Venipuncture / Unknown 10/28/2024 12:58 AM EDT 10/28/2024 1:01 AM EDT us Renard Hernandez MD LAB BLOOD ORDERABLES Final Res ult [facility] [address] [place] [address], [place] * Urinalysis, Outside Lab (09/02/2024 9:20 AM EST) us Christen Lopes MD LAB URINE ORDERABLES Final Re sult * LAB - SCANNED (08/29/2024) us Onbase Scan Mindy LAB HISTORICAL RESULTS Final Result from Last [address] [facility] MEDICARE Advance Directives Documents on File Type Date Recorded Patient Divemaster Expl anation Health Care Proxy 10/17/2024 7:28 AM * Full Code (Latest Code Status on File) Date Activated Date Inactivated Comments 10/28/2024 12:14 PM 11/02/2024 3:43 PM * Full Code Date Activated Date Inactivated Comments 10/17/2024 6:57 AM 10/17/2024 12:56 PM * Full Code Date Activated Date Inactivated Comments 11/23/2023 8:48 AM 11/23/2023 1:53 PM * Full Code Date Activated Date Inactivated Comments 08/17/2023 10:08 AM 08/18/2023 4:16 PM Healthcare Agents on File Name Relationship Healthcare Agent Relationship Communication Martita Pope Daughter Health Care Agent [email or web address] Care Teams Back End Engineer Relationship Specialty Start Date End Date Andree Lindquist PCP - General Family Medicine 03/26/23
--- OUTSIDE RECORDS SUMMARY | 2024-11-20 10:12 | XMS_ITS | Encounter Summary ---
Author Organization [facility] Address [address] [place] [address] Care Team Providers Care [employer] Assistant Football Coach Name Role Phone Meghan Hicks MD Primary Care Provider Beatrice Garvey MD Unavailable [facility], Pcp Primary Care Provider Unavailabl e Meghan Hicks MD Primary Care Provider Andree Stallworth MD Primary Care Provider Unavailnathaly barcenas Encounter Details Date Type Department Care Team Description 05/29/2019 Matrix Worker Report Medical Records [address] [place] [address] Social History Tobacco Use Types Packs/Day Years [...] on filedocumented in this encounter Care Teams [employer] Assistant Football Coach Relationship Specialty Start Date End Date Meghan Hicks MD PCP - General Internal Medicine 04/08/12 01/15/22 [facility], Pcp PCP - General Internal Medicine 01/16/22 03/05/22 Meghan Hicks MD PCP - General Internal Medicine 03/06/22 03/18/22 Andree Gonzalez MD PCP - General Internal Medicine 03/19/22 Beatrice Holloway MD Specialist Cardiology 07/31/21 documented as of this encounter
--- OUTSIDE RECORDS SUMMARY | 2024-11-20 10:12 | XMS_ITS | Encounter Summary ---
Author Organization [facility] Address [address] [place] [address] Care Team Providers Care Drilling Manager Name Role Phone Meghan Hicks MD Primary Care Provider Beatrice Garvey MD Unavailable [facility], Pcp Primary Care Provider Unavailabl e Meghan Hicks MD Primary Care Provider Andree Stallworth MD Primary Care Provider Unavaila ble Encounter Details Date Type Department Care Team Description 02/01/2020 Pattern Puncher Report Medical Records [address] [place] [id number] Loc Cheung MD Social History Tobacco Use [...] on filedocumented in this encounter Care Teams Drilling Manager Relationship Specialty Start Date End Date Meghan Hicks MD PCP - General Internal Medicine 04/08/12 01/15/22 [facility], Pcp PCP - General Internal Medicine 01/16/22 03/05/22 Meghan Hicks MD PCP - General Internal Medicine 03/06/22 03/18/22 Andree Gonzalez MD PCP - General Internal Medicine 03/19/22 Beatrice Holloway MD Specialist Cardiology 07/31/21 documented as of this encounter
--- OUTSIDE RECORDS SUMMARY | 2024-11-20 10:12 | XMS_ITS | Encounter Summary ---
Author Organization [facility] Address [address] [place] [address] Care Team Providers Care Home Care Assistant Name Role Phone Meghan Hicks MD Primary Care Provider Beatrice Garvey MD Unavailable [facility], [facility] Primary Care Provider UnavailMeghan Jones MD Primary Care Provider Andree Stallworth MD Primary Care Provider Unavailnathaly ble Encounter Details Date Type Department Care Team Description 07/19/2020 Orders Only Medicine/Pediatrics - [address] [address] Meghan Hicks MD Preoperative examination; Screening for deficiency anemia Social History Tobacco Use Types Packs/Day Years [...] as of this encounter Plan of Treatment Scheduled Orders Name Type Priority Associated Diagnoses Orde r Schedule ELECTROCARDIOGRAM, COMPLETE (ECG) Cardiology Routine Preoperative examination 1 Occurrences starting 07/19/2020 until 07/19/2021 documented as of this encounter Results * (ABNORMAL) URINALYSIS, ROUTINE (07/30/2020 4:38 PM EST) GLUCOSE, URINE (UA) 500(A) NEGATIVE mg/dL 07/30/2020 6:54 PM EST [facility] BILIRUBIN URINE NEGATIVE NEGATIVE 07/30/2020 6:54 PM EST [facility] KETONE, URINE TRACE(A) NEGATIVE mg/dL 07/30/2020 6:54 PM EST [facility] SPECIFIC GRAVITY, URINE 1.024 1.003 - 1.030 07/30/2020 6:54 PM EST [facility] BLOOD, URINE NEGATIVE NEGATIVE 07/30/2020 6:54 PM EST [facility] PH, URINE 6.0 5.0 - 8.0 07/30/2020 6:54 PM EST [facility] PROTEIN, URINE 100(A) <= TRACE mg/dl 07/30/2020 6:54 PM EST [facility] UROBILINOGEN, URINE 0.2 0.2 - 1.0 E.U./dL 07/30/2020 6:54 PM EST [facility] NITRITE,URINE NEGATIVE NEGATIVE 07/30/2020 6:54 PM EST [facility] LEUKOCYTE ESTERASE, URINE NEGATIVE NEGATIVE 07/30/2020 6:54 PM EST [facility] RBC-Urine 3 0 - 4 /HPF 07/30/2020 6:56 PM EST [facility] WBC-Urine 4 0 - 4 /HPF 07/30/2020 6:56 PM EST [facility] EPITH CELLS, URINE 93(H) 0 - 60 /LPF 07/30/2020 6:56 PM EST [facility] BACTERIA, URINE NEGATIVE NEGATIVE 07/30/2020 6:56 PM EST [facility] HYALINE CAST, URINE 1 0 - 3 /LPF 07/30/2020 6:56 PM EST [facility] 07/30/2020 4:38 PM EST 07/30/2020 4:38 PM EST Meghan Hicks MD LAB [facility] * URINE, CULTURE (07/30/2020 4:37 PM EST) Urine (Urine) 07/30/2020 4:3 7 PM EST 07/30/2020 4:38 PM EST Narrative [facility] - 07/31/2020 1:32 PM EST <10,000 CFU/mL NORMAL SKIN/UROGENITAL DACIA PRESENT. Meghan Hicks MD LAB [facility] * (ABNORMAL) COMPREHENSIVE METABOLIC PANEL (07/30/2020 3:42 PM EST) GLUCOSE 114(H) 70 - 100 mg/dL 07/30/2020 7:41 PM EST [facility] Comment:Reference range appl icable to fasting specimens only Blood Urea Nitrogen 25 5 - 25 mg/dL 07/30/2020 7:41 PM EST [facility] CREAT 0.84 0.5 - 1.1 mg/dL 07/30/2020 7:41 PM EST [facility] GLOMERULAR FILTRATION RATE > 60 07/30/2020 7:41 PM EST [facility] Comment: If patient is -Japanese, multiply result by 1.21 Chronic Kidney Disease: < 60 ml/min/1.73 square meters Kidney Failure: < 15 ml/min/1.73 square meters NA 139 135 - 145 mEq/L 07/30/2020 7:41 PM EST [facility] K 3.9 3.5 - 5.5 mmol/L 07/30/2020 7:41 PM EST [facility] CL 103 96 - 110 mmol/L 07/30/2020 7:41 PM EST [facility] CARBON DIOXIDE (CO2) 29 21 - 32 mmol/L 07/30/2020 7:41 PM EST [facility] ANION GAP 7 3 - 11 07/30/2020 7:41 PM EST [facility] CALCIUM 9.8 8.5 - 10.5 mg/dL 07/30/2020 7:41 PM EST [facility] TOTAL PROTEIN (TP) 7.2 6.0 - 8.0 G/dL 07/30/2020 7:41 PM EST [facility] Albumin 4.5 3.2 - 5.0 G/dL 07/30/2020 7:41 PM EST [facility] BILIRUBIN TOTAL 0.4 0.0 - 1.4 mg/dL 07/30/2020 7:41 PM EST [facility] SGOT 24 10 - 42 U/L 07/30/2020 7:41 PM EST [facility] SGPT 20 10 - 60 U/L 07/30/2020 7:41 PM EST [facility] ALK PHOS 167(H) 42 - 121 U/L 07/30/2020 7:41 PM EST [facility] 07/30/2020 3:42 PM EST 07/30/2020 3:42 PM EST Meghan Hicks MD LAB [facility] * (ABNORMAL) CBC (AUTO DIFF PLATELET) (07/30/2020 3:42 PM EST) Pathologist [facility] WHITE BLOOD COUNT 8.7 4.8 - 10.8 x10-3/uL 07/30/2020 7:04 PM EST [facility] RED BLOOD COUNT 4.4 3.8 - 4.8 x10-6/uL 07/30/2020 7:04 PM EST [facility] Hemoglobin 12.4 11.5 - 16.0 g/dL 07/30/2020 7:04 PM EST [facility] Hematocrit 38.7 35 - 47 % 07/30/2020 7:04 PM EST [facility] MEAN CORPUSCULAR VOLUME 88.6 79 - 98 fL 07/30/2020 7:04 PM EST [facility] MEAN CORPUSCULAR HEMOGLOBIN 28.4 27 - 32 pg 07/30/2020 7:04 PM EST [facility] MEAN CORPUSCULAR HGB CONC 32.0 32 - 37 g/dL 07/30/2020 7:04 PM EST [facility] RED CELL DISTRIBUTION WIDTH 12.7 11 - 15 % 07/30/2020 7:04 PM EST [facility] PLT COUNT 309 130 - 400 x10-3/uL 07/30/2020 7:04 PM EST [facility] MEAN PLATELET VOLUME 11.5(H) 7 - 11 fL 07/30/2020 7:04 PM EST [facility] NRBC % AUTO 0.0 <1 % 07/30/2020 7:04 PM EST [facility] NEUTROPHILS % 65.0 % 07/30/2020 7:04 PM EST [facility] LYMPH % 23.0 % 07/30/2020 7:04 PM EST [facility] MONO % 9.1 % 07/30/2020 7:04 PM EST [facility] EOS % 2.5 % 07/30/2020 7:04 PM EST [facility] BASO % 0.2 % 07/30/2020 7:04 PM EST [facility] IMMATURE GRANULOCYTES % 0.2 % 07/30/2020 7:04 PM EST [facility] NRBC # AUTO 0.00 <0.1 x10-3/uL 07/30/2020 7:04 PM EST [facility] NEUT # 5.66 1.5 - 7.0 x10-3/uL 07/30/2020 7:04 PM EST [facility] LYMPH # 2.00 1 - 5.0 x10-3/uL 07/30/2020 7:04 PM EST [facility] MONO # 0.79 0.2 - 1.0 x10-3/uL 07/30/2020 7:04 PM EST [facility] EOS # 0.22 0 - 0.5 x10-3/uL 07/30/2020 7:04 PM EST [facility] BASO # 0.02 0 - 0.2 x10-3/uL 07/30/2020 7:04 PM EST [facility] IMMATURE GRANULOCYTES # 0.02 0 - 0.03 x10-3/uL 07/30/2020 7:04 PM EST [facility] 07/30/2020 3:42 PM EST 07/30/2020 3:42 PM EST Meghan Hicks MD LAB [facility] documented in this encounter Visit Diagnoses Diagnosis Preoperative examination Preoperative examination, unspecified Screening for deficiency anemia Screening for other and unspecified deficiency anemia documented in this encounter Care Teams Home Care Assistant Relationship Specialty Start Date End Date Meghan Hicks MD PCP - General Internal Medicine 04/08/12 01/15/22 [facility], Pcp PCP - General Internal Medicine 01/16/22 03/05/22 Meghan Hicks MD PCP - General Internal Medicine 03/06/22 03/18/22 Andree Gonzalez MD PCP - General Internal Medicine 03/19/22 Beatrice Holloway MD Specialist Cardiology 07/31/21 documented as of this encounter
--- OUTSIDE RECORDS SUMMARY | 2024-11-20 10:12 | XMS_ITS | Encounter Summary ---
Author Organization [facility] Address [address] [place] [address] Care Team Providers Care Caramel Coloring Operator Name Role Phone Meghan Hicks MD Primary Care Provider Beatrice Garvey MD Unavailable [facility], Pcp Primary Care Provider Unavailabl e Meghan Hicks MD Primary Care Provider Andree Stallworth MD Primary Care Provider Unavailnathaly barcenas Encounter Details Date Type Department Care Team Description 06/29/2019 Hospital Medical Records [address] [place], [place] [id number] [place] [address], [facility] Social History Tobacco Use Types Packs/Day Years [...] on filedocumented in this encounter Care Teams Caramel Coloring Operator Relationship Specialty Start Date End Date Meghan Hicks MD PCP - General Internal Medicine 04/08/12 01/15/22 [facility], Pcp PCP - General Internal Medicine 01/16/22 03/05/22 Meghan Hicks MD PCP - General Internal Medicine 03/06/22 03/18/22 Andree Gonzalez MD PCP - General Internal Medicine 03/19/22 Beatrice Holloway MD Specialist Cardiology 07/31/21 documented as of this encounter
--- OUTSIDE RECORDS SUMMARY | 2024-11-20 10:12 | XMS_ITS | Encounter Summary ---
Author Organization [facility] Address [address] [place] [address] Care Team Providers Care Public Relations Consultant Name Role Phone Andree Lindquist Primary Care Provider [phone] Encounter Details Date Type Department Care Team (Late st Contact Info) Description 07/22/2023 Orders Only [facility] Interventional Radiology [address] [place], [place] [id number] Guerline Vaughn MD [address] [place] [address] Social History Tobacco Use Types Packs/Day Years [...] Info) Description 12/07/2024 8:15 AM EDT Follow-Up [facility] [address] [place] [id number] [employer]: Christen Dempsey MD [address] [place] [address] [phone] 06/20/2025 10:45 AM EST Follow-Up [facility] [address] [place] [id number] [employer]: Christen Dempsey MD [address] [place] [id number] documented as of this encounter Visit Diagnoses Not on filedocumented in this encounter Additional Health Concerns Infection Onset Date Last Indicated Resolved Time R/O Respiratory Virus Infection 10/28/2024 10/28/2024 6:11 AM EDT R/O Influenza 10/28/2024 10/28/2024 10/28/2024 6:1 1 AM EDT COVID-19 - Suspected infection 10/28/2024 10/28/2024 10/28/2024 6:11 AM EDT documented as of this encounter Care Teams Public Relations Consultant Relationship Specialty Start Date End Date Andree Lindquist PCP - General Family Medicine 03/26/23 documented as of this encounter
--- OUTSIDE RECORDS SUMMARY | 2024-11-20 10:12 | XMS_ITS | Encounter Summary ---
Author Organization [facility] Address [address] [place] [address] Care Team Providers Care Washcloth Folder Name Role Phone Meghan Hicks MD Primary Care Provider Beatrice Garvey MD Unavailable [facility], Pcp Primary Care Provider UnavailMeghan Jones MD Primary Care Provider Andree Stallworth MD Primary Care Provider Unavaila narinder Encounter Details Date Type Department Care Team Description 07/30/2020 Pt. Non Urgent Medic al Question Adult Medicine [address] [address] Meghan Hicks MD Social History Tobacco Use [...] have Coronavirus / COVID-19? No / Unsure 08/02/2020 9:49 AM EST documented as of this encounter Plan of Treatment Not on file documented as of this encounter Visit Diagnoses Not on filedocumented in this encounter Care Teams Washcloth Folder Relationship Specialty Start Date End Date Meghan Hicks MD PCP - General Internal Medicine 04/08/12 01/15/22 [facility], Pcp PCP - General Internal Medicine 01/16/22 03/05/22 Meghan Hicks MD PCP - General Internal Medicine 03/06/22 03/18/22 Andree Gonzalez MD PCP - General Internal Medicine 03/19/22 Beatrice Holloway MD Specialist Cardiology 07/31/21 documented as of this encounter
--- OUTSIDE RECORDS SUMMARY | 2024-11-20 10:12 | XMS_ITS | Encounter Summary ---
Author Organization [facility] Address [address] [place] [address] Care Team Providers Care Nursing Administrator Name Role Phone Meghan Hicks MD Primary Care Provider Beatrice Garvey MD Unavailable [facility], Pcp Primary Care Provider Unavailabl e Meghan Hicks MD Primary Care Provider Andree Stallworth MD Primary Care Provider Unavailnathaly barcenas Encounter Details Date Type Department Care Team Description 09/11/2013 Hooker Operator Report Medical Records [address] [place] [address] Fuad Wooten MD Social History Tobacco Use Types Packs/Day [...] on filedocumented in this encounter Care Teams Nursing Administrator Relationship Specialty Start Date End Date Meghan Hicks MD PCP - General Internal Medicine 04/08/12 01/15/22 [facility], Pcp PCP - General Internal Medicine 01/16/22 03/05/22 Meghan Hicks MD PCP - General Internal Medicine 03/06/22 03/18/22 Andree Gonzalez MD PCP - General Internal Medicine 03/19/22 Beatrice Holloway MD Specialist Cardiology 07/31/21 documented as of this encounter
--- OUTSIDE RECORDS SUMMARY | 2024-11-20 10:12 | XMS_ITS | Encounter Summary ---
Author Organization [facility] Address [address] [place] [address] Care Team Providers Care Newspaper Distributor Supervisor Name Role Phone Meghan Hicks MD Primary Care Provider Beatrice Garvey MD Unavailable [facility], Pcp Primary Care Provider Unavailabl e Meghan Hicks MD Primary Care Provider Andree Stallworth MD Primary Care Provider Unavaila narinder Encounter Details Date Type Department Care Team Description 03/06/2013 Clean Out Driller Report Medical Records [address] [place] [id number] Kenney Peraza MD Social History Tobacco Use Types Packs/Day [...] on filedocumented in this encounter Care Teams Newspaper Distributor Supervisor Relationship Specialty Start Date End Date Meghan Hicks MD PCP - General Internal Medicine 04/08/12 01/15/22 [facility], Pcp PCP - General Internal Medicine 01/16/22 03/05/22 Meghan Hicks MD PCP - General Internal Medicine 03/06/22 03/18/22 Andree Gonzalez MD PCP - General Internal Medicine 03/19/22 Beatrice Holloway MD Specialist Cardiology 07/31/21 documented as of this encounter
--- OUTSIDE RECORDS SUMMARY | 2024-11-20 10:12 | XMS_ITS | Referral Summary ---
Author Organization [facility] Address [address] [place] [address] Care Team Providers Care Roll Over Loader Name Role Phone Andree Lindquist Primary Care Provider Encounters Date Type Department Care Team Description 11/20/2024 myChart Message [facility] [address] [place] [phone] Controlled Area Checker: Christen Dempsey MD [facility] 10/27/2024 11:55 PM EDT - 11/02/2024 1:35 PM EDT Hospital Encounter [facility] 2 [facility] [address] [place] [address] Renard Hernandez MD Fidrocki, James E., MD Feibish, Gordon, DO MacGinnis, Christine O., DO Hebert, Christine M., MD Hyponatremia (Primary Dx); Anemia, unspecified type; AUGUSTINE (acute kidney injury) (HCC); Confusion; Dysphagia, unspecified type Discharge Disposition: Inpatient Rehab Facility (IRF) (62) 10/27/2024 Patient Self-Triage [address] [address] Urgent Care, [facility] PhysicianMD 10/17/2024 Telephone [facility] [address] [place] [phone] Controlled Area Checker: Christen Dempsey MD 10/17/2024 8:20 AM EDT - 10/17/2024 9:10 AM EDT Surgery [facility] Operating Room [address] [place] [address] Christen Lopes MD CYSTOURETHROSCOPY WITH CHEMODENERVATION Botox 100 units; WITH FULGERATION . [20321 (CPT??)] 10/17/2024 8:40 AM EDT Anesthesia Event [facility] Operating Room [address] [place] [address] Victorino Cox MD Ackroyd, Luke J. 10/17/2024 6:33 AM EDT - 10/17/2024 10:56 AM EDT Hospital Encounter [facility] Operating Room [address] [place] [address] Christen Lopes MD Discharge Disposition: Home or Self Care w/ Planned Readmission (81) 10/03/2024 Telephone [facility] [address] [place] [phone] Controlled Area Checker: Christen Dempsey MD 10/03/2024 11:30 AM EDT Pre-Admission Testing [facility] [address] [place] [phone] Meka Dover NP Urge incontinence (Primary Dx); Pre-op evaluation; Primary hypertension 09/05/2024 Khang Message [facility] [address] [place] [phone] Controlled Area Checker: Paulette Sierra [facility] Provider Surgery Wednesday10/17/2024 09/04/2024 Orders Only [facility] [address] [address] Controlled Area Checker: Christen Dempsey MD 08/31/2024 Telephone [facility] [address] [place] [address] Controlled Area Checker: Christen Dempsey MD Update on pt's. symptoms 08/30/2024 Orders Only [facility] [address] [place] [phone] Controlled Area Checker: Christen Dempsey MD Acute cystitis with hematuria (Primary Dx) 08/25/2024 1:00 PM EST Pre-Admission Testing [facility] [address] [place] [phone] Urge incontinence (Primary Dx); Preoperative testing 08/23/2024 Telephone [facility] [address] [place] [phone] Controlled Area Checker: Christen Dempsey MD from Last 3 Months Allergies Active Allergy Reactions Criticality Noted Date Comments Cefdinir Rash 07/22/2023 Tolerated ceftriaxone 10/2023 Sulfa (Sulfonamide Antibiotics) Rash 07/22/2023 Trimethoprim Rash 07/22/2023 Medications glipiZIDE (GLUCOTROL) 5 mg tablet Take 2.5 mg by mouth once a day. 023 Active acidophilus-pe ctin, citrus 25 million cell -100 mg tablet Take 1 capsule by mouth after lunch. 023 Active Estring 2 mg (7.5 mcg /24 hour) vaginal ring Apply 2 mg to the vagina every 3 months. 023 Active Myrbetriq 50 mg tablet 50 mg every morning. [address] (PROTONIX) 40 mg tablet 40 mg at bed time. Active sertraline (ZOLOFT) 100 mg tablet Take 100 mg by mouth every morning. Active umeclidinium (INCRUSE ELLIPTA) 62.5 mcg/actuation blister with device Take 1 puff by mouth every morning. 023 Active carbidopa-levo dopa (SINEMET) 25-100 mg per tablet Take 2 tablets by mouth 3 times a day. Active Ventolin HFA 90 mcg/actuation inhaler Inhale 2 puffs by mouth every 6 hours as needed. Active ursodioL (ACTIGALL) 300 mg capsule Take [...] mg capsule Take 200 mg by mouth. 025 2025 Active omega-3s/dha/e pa/fish oil/D3 (VITAMIN-D + [...] as needed for bladder spasms. 9 tablet 9:45 AM EDT Active benzonatate (TESSALON) 100 [...] by mouth daily as needed for constipation. 025 2024 Active polyethylene glycol 3350 (MIRALAX) 17 gram packet Take 1 packet (17 g total) by mouth daily as needed for constipation. Mix powder in 4 to 8 oz of water, juice, coffee, or tea prior to administration. Active losartan (COZAAR) 25 mg tablet Take [...] daily see TAVR No statin present on COATING SUPERVISOR med rec on admission, although noted in EMR that patient should be taking atorvastatin 40 mg, unclear if this was discontinued COATING SUPERVISOR - consider re-initiating statin while admitted; plan to discuss with family Assessment & Plan (10/30/2024 3:03 PM EDT): Home meds: asa 81 mg daily see TAVR No statin present on COATING SUPERVISOR med rec on admission, although noted in EMR that patient should be taking atorvastatin 40 mg, unclear if this was discontinued COATING SUPERVISOR - consider re-initiating statin while admitted Assessment & Plan (10/30/2024 11:55 AM EDT): Home meds: asa 81 mg daily see TAVR No statin present on COATING SUPERVISOR med rec on admission, although noted in EMR that patient should be taking atorvastatin 40 mg, unclear if this was discontinued COATING SUPERVISOR - consider re-initiating statin while admitted Impaired mobility and ADLs 10/30/2024 Assessment & Plan (11/01/2024 7:12 AM EDT): PT following, rec dc to inpt facility Assessment & Plan (10/30/2024 3:03 PM EDT): PT following, rec dc to inpt facility Dysphagia 10/29/2024 Assessment & Plan (11/01/2024 7:12 AM EDT): Patient with sensation of something stuck in her throat. ENGINE HOSTLER following, most recent eval 10/30: Recommend a level 0/thin liquid, level 7/easy to chew solid diet. Recommend intermittent supervision to cue patient for recommended swallow strategies: upright 90 deg during meals, small bite/sips, SINGLE sips at a time. Assessment & Plan (10/30/2024 3:03 PM EDT): Patient with sensation of something stuck in her throat. ENGINE HOSTLER following, most recent eval 10/30: Recommend a level 0/thin liquid, level 7/easy to chew solid diet. Recommend intermittent supervision to cue patient for recommended swallow strategies: upright 90 deg during meals, small bite/sips, SINGLE sips at a time. Assessment & Plan (10/30/2024 11:55 AM EDT): Patient with sensation of something stuck in her throat. ENGINE HOSTLER following, most recent eval 10/30: Recommend a level 0/thin liquid, level 7/easy to chew solid diet. Recommend intermittent supervision to cue patient for recommended swallow strategies: upright 90 deg during meals, small bite/sips, SINGLE sips at a time. Assessment & Plan (10/29/2024 1:57 PM EDT): Patient with sensation of something stuck in her throat. ENGINE HOSTLER on 420 clearing patient for a level 6 solids and level 0 liquid. 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 -No indication for CITY JAILER at this time; given the patient's underlying comorbidities, would discuss GOC with family before committing to CITY JAILER should a potential need develop. Acute renal [...] CKD and intermittent metabolic acidosis at baseline. Social History Tobacco Use Types Packs/Day Years Used Date Smoking Tobacco: Former Cigarettes 1 45 1 4 - 1998 Smokeless Tobacco: Never Tobacco Cessation:Counseling Given: Not Answered Alcohol Use Standard Drinks/Week Comments Not Currently 0 (1 standard drink = 0.6 oz pur e alcohol) [facility] Utilities Answer Date Recorded In the past 12 months has e Phone[employer], gas, oil, or water [employer] threatened to shut off services in your [...] Info) Description 12/07/2024 8:15 AM EDT Follow-Up [facility] [address] [place] [phone] Controlled Area Checker: Christen Dempsey MD [address] [place] [phone] 06/20/2025 10:45 AM EST Follow-Up [facility] [address] [address] Controlled Area Checker: Christen Dempsey MD [address] [place] [address] Procedures * Due to [place] state law, this organization might not be sharing negative HIV tests. Procedure Name Priority Date/Time Associated Diagnosis Comments POCT GLUCOSE Routine 11/02/2024 12:12 PM EDT POCT GLUCOSE Routine 11/02/2024 8:34 AM EDT BASIC METABOLIC PANEL Routine 11/02/2024 6:01 AM EDT CBC AUTO DIFFERENTIAL Routine 11/02/2024 6:01 AM EDT POCT GLUCOSE Routine 11/01/2024 8:36 PM EDT POCT GLUCOSE Routine 11/01/2024 5:37 PM EDT [facility] IV PROPERTY MANAGEMENT INTERN PICC Routine 2:39 PM EDT POCT GLUCOSE [...] AUTO DIFFERENTIAL STAT 10/28/2024 12:58 AM EDT CO CYSTOURETHROSCOPY INJ CHEMODENERVATION BLADDER 10/17/2024 8:25 AM EDT Urge incontinence Special Needs BOTOX POCT GLUCOSE Routine 10/17/2024 7:18 AM EDT URINALYSIS, OUTSIDE LAB Routine 09/02/19 9:20 AM EST LAB - SCANNED 08/29/2024 from Last 3 Months Results * Due to [place] state law, this organization might not be sharing negative HIV tests. * (ABNORMAL) POCT Glucose, interfaced (11/02/2024 12:12 PM EDT) Only the most recent of21 resultswithin the time period is included. [facility] Glucose, POCT 237(H) 70 - 99 mg/dL 11/02/2024 12:23 PM EDT [facility] Comment: The runner on has not determined the efficacy of this test in Critically ill patients. ??[facility] defines Critically ill patients for the [...] POCT ORDERABLES - DEV ICE Final Result [facility] [address] [place] [address], [place] * (ABNORMAL) CBC Auto Differential (11/02/2024 6:01 AM EDT) Only the most recent of9 resultswithin the time period is included. WBC 10.6 3.8 - 10.8 10*3/uL 11/02/2024 6:26 AM EDT [facility] RBC 3.33(L) 3.80 - 5.10 10*6/uL 11/02/2024 6:26 AM EDT [facility] Hemoglobin 7.4(L) 11.7 - 15.5 g/dL 11/02/2024 6:26 AM EDT [facility] Hematocrit 23.7(L) 35.0 - 45.0 % 11/02/2024 6:26 AM EDT [facility] MCV 71.2(L) 80.0 - 100.0 fL 11/02/2024 6:26 AM EDT [facility] MCH 22.2(L) 27.0 - 33.0 pg 11/02/2024 6:26 AM EDT [facility] MCHC 31.2(L) 32.0 - 36.0 g/dL 11/02/2024 6:26 AM EDT [facility] RDW 18.0(H) 11.0 - 15.0 % 11/02/2024 6:26 AM EDT [facility] Platelets 363 140 - 400 10*3/uL 11/02/2024 6:26 AM EDT [facility] MPV 9.3 7.5 - 12.5 fL 11/02/2024 6:26 AM [facility] Neutrophil % 73.4 % 11/02/2024 6:26 AM [facility] Immature Grans % 2.0(H) 0.0 - 0.9 % 11/02/2024 6:26 AM [facility] Lymphocyte % 10.7 % 11/02/2024 6:26 AM [facility] Monocyte % 9.0 % 11/02/2024 6:26 AM [facility] Eosinophil % 4.8 % 11/02/2024 6:26 AM [facility] Basophil % 0.1 % 11/02/2024 6:26 AM [facility] Neutrophil # 7.76 1.50 - 7.80 10*3/uL 11/02/2024 6:26 AM [facility] Immature Grans # 0.21(H) <=0.03 10*3/uL 11/02/2024 6:26 AM [facility] Lymphocyte # 1.10 0.85 - 3.90 10*3/uL 11/02/2024 6:26 AM [facility] Monocyte # 1.00(H) 0.20 - 0.95 10*3/uL 11/02/2024 6:26 AM [facility] Eosinophil # 0.50 0.02 - 0.50 10*3/uL 11/02/2024 6:26 AM [facility] Basophil # <0.03 0.00 - 0.20 10*3/uL 11/02/2024 6:26 AM [facility] nRBC % 0.0 /100 WBCs 11/02/2024 6:26 AM [facility] nRBC # <0.01 <0.01 10*3/uL 11/02/2024 6:26 AM EDT [facility] Blood Structure of peripheral vein / Unknown Venipuncture / Unknown 11/02/2024 6:01 AM EDT 11/02/2024 6:12 AM EDT us Radha Elias MD LAB BLOOD ORDERABLES Ambar raiza Result [facility] [address] [place] [address], * (ABNORMAL) Basic metabolic panel (11/02/2024 6:01 AM EDT) Only the most recent of8 resultswithin the time period is included. NA 137 135 - 145 mmol/L 11/02/2024 6:43 AM EDT [facility] K 4.1 3.5 - 5.3 mmol/L 11/02/2024 6:43 AM EDT [facility] Cl 101 98 - 107 mmol/L 11/02/2024 6:43 AM EDT [facility] CO2 25 22 - 32 mmol/L 11/02/2024 6:43 AM EDT [facility] BUN 29(H) 7 - 23 mg/dL 11/02/2024 6:43 AM EDT [facility] Creatinine 0.94 0.50 - 1.20 mg/dL 11/02/2024 6:43 AM EDT [facility] Glucose 138(H) 65 - 99 mg/dL 11/02/2024 6:43 AM EDT [facility] Calcium 8.9 8.6 - 10.5 mg/dL 11/02/2024 6:43 AM EDT [facility] Anion Gap 11 5 - 15 11/02/2024 6:43 AM EDT [facility] eGFR 63 >=60 mL/min/1. 73m2 11/02/2024 6:43 AM EDT [facility] Comment:The estimated glomer ular [...] MD LAB BLOOD ORDERABLES Ambar eastman Result [facility] [address] [place] [address], [place] * VENEER SPLICER PICC and Midline (11/01/2024 2:39 PM EDT) Narrative Bela Ceja RN - 11/01/2024 2:39 PM EDT Bela Ceja RN ? 11/01/2024 ??2:41 PM Midline catheter insertion Date/Time: 11/01/2024 2:39 PM Performed by: Nicolas Roberts RN ??Reason for Insertion: intravenous access and intravenous antibiotics ?Successful placement: yes ?? [place] Protocol ??Patient identity confirmed: ??Name and MRN [...] lumen ??Catheter Size (ga): ??20 ??Lot #: ??[id number] ??Catheter Total Length (cm): ??10 ??Catheter External Length (cm): ??0 Post-Procedure Central Line Bundle ??Guidewire Removal Confirmed?: Yes ?All Ports Capped?: Yes ?Verification of Line Placement: ??Not applicable ??Dressing Applied: Transparent and Antimicrobial Post-Procedure Details ??Patient tolerance of procedure: ??Tolerated well, no immediate complications ??Significant events: ??None ??Plan: ??Midline ready for immediate use us Radha Elias MD IV THERAPY ORDERABLES [facility] al Result * (ABNORMAL) Eden & Lambda, Free w/Ratio (10/31/2024 6:11 AM EDT) Eden Light Chain, Free, Serum 26.5(H) 3.3 - 19.4 mg/L 11/01/2024 10:00 AM EDT [employer] [facility] Lambda Light Chain, Free, Serum 28.1(H) 5.7 - 26.3 mg/L 11/01/2024 10:00 AM [employer] [facility] Eden/Lambda Light Chains Free With Ratio 0.94 0.26 - 1.65 11/01/2024 10:00 AM [employer] [facility] Comment: Free kappa/lambda ratio in serum [...] AM EDT Narrative TIMOTHY CARMEN - 11/01/2024 10:00 AM EDT [facility] Received Date: Radha Elias MD LAB BLOOD ORDERABLES Ambar raiza Result [facility] [address], [place] [address], [employer] [facility] [address], [place] [address], * (ABNORMAL) Protein Electrophoresis w/Reflex to Immunofixation, Serum (10/31/2024 6:11 AM EDT) Protein, Total 5.0(L) 6.1 - 8.1 g/dL 11/01/2024 8:27 PM EDT [employer] [facility] Albumin 2.5(L) 3.8 - 4.8 g/dL 11/01/2024 8:27 PM EDT [employer] [facility] Alpha 1 Globulin 0.5(H) 0.2 - 0.3 g/dL 11/01/2024 8:27 PM EDT [employer] [facility] Alpha 2 Globulin 0.8 0.5 - 0.9 g/dL 11/01/2024 8:27 PM EDT [employer] [facility] Beta 1 Globulin 0.4 0.4 - 0.6 g/dL 11/01/2024 8:27 PM EDT [employer] [facility] [facility] Beta 2 Globulin 0.3 0.2 - 0.5 g/dL 11/01/2024 8:27 PM EDT [employer] [facility] Gamma Globulin 0.5(L) 0.8 - 1.7 g/dL 11/01/2024 8:27 PM EDT [employer] [facility] Interpretation See Comments 11/01/2024 8:27 PM EDT [employer] [facility] Comment: Selective protein loss pattern, suggestive of nephrotic syndrome Blood Structure of peripheral vein / Unknown Venipuncture / Unknown 10/31/2024 6:11 AM EDT 10/31/2024 6:38 AM EDT Narrative TIMOTHY CARMEN - 11/01/2024 8:27 PM EDT Timothy Received Date: Radha Elias MD LAB BLOOD ORDERABLES Ambar l Result [facility] [address], [place] [address], [employer] [facility] [address], [place] [address], [place] [phone] * [place] Modified Barium Swallow (10/30/2024 10:26 [...] obtain the completed interpretation. ? Workstation ID: [id number] Narrative 10/31/2024 12:29 PM EDT EXAMINATION: Barium [...] present for the procedure. Resulting Agency Comment [id number] Procedure Note Julita Ayon MD - 10/31/2024 [...] possible to obtain thecompleted interpretation. Workstation ID: [id number] us Radha Elias MD IMG FLUOROSCOPY PROCEDURE S Final Result * XR [...] obtain the completed interpretation. ? Workstation ID: [id number] Narrative 10/31/2024 3:40 PM EDT COMPARISON: ??10/29/2023 FINDINGS AND Resulting Agency Comment [id number] Procedure Note Haseeb Art MD - 10/31/2024 [...] possible to obtain thecompleted interpretation. Workstation ID: [id number] Radha Elias MD IMG XR PROCEDURES Final R esult * Reticulocytes (10/29/2024 6:13 AM EDT) Pathologist [facility] Retic % 0.9 0.5 - 1.6 % 10/29/2024 6:25 AM EDT [facility] Retic # 0.03 0.02 - 0.08 10*6/uL 10/29/2024 6:25 AM EDT [facility] Blood Structure of peripheral vein / Unknown Venipuncture / Unknown 10/29/2024 6:13 AM EDT 10/29/2024 6:16 AM EDT Radha Chan DO LAB BLOOD ORDERABLES F inal Result Performing Organization Address City/[facility]/ZIP Co de Phone Number [facility] [address] [place] [address], [place] * Osmolality, Serum (10/29/2024 6:13 AM EDT) [facility] Osmolality 295 279 - 295 mOsm/kg 10/29/2024 6:43 AM EDT [facility] Blood Structure of peripheral vein / Unknown Venipuncture / Unknown 10/29/2024 6:13 AM EDT 10/29/2024 6:16 AM EDT Radha Elias MD LAB BLOOD ORDERABLES Ambar l Result [facility] [address] [place] [address], [place] * Sodium, Random Urine with Creatinine (10/29/2024 2:29 AM EDT) Pathologist [facility] Sodium, Urine <20 mmol/L 10/29/2024 3:24 AM EDT [facility] Creatinine, Urine 82 15 - 278 mg/dL 10/29/2024 3:24 AM EDT [facility] Sodium/Creatin ine, Urine Ratio 10/29/2024 3:24 AM EDT [facility] Comment:Unable to Calculate Urine Voided urine specimen / Unknown Non-Blood Collection / Unknown 10/29/2024 2:29 AM EDT 10/29/2024 2:37 AM EDT Radha Elias MD LAB URINE ORDERABLES Ambar l Result Performing Organization Address City/[facility]/ZIP Co de Phone Number [facility] [address] [place] [phone], [place] * Osmolality, Urine (10/29/2024 2:29 AM EDT) Pathologist [facility] Osmolality, Ur 441 70 - 900 mOsm/kg 10/29/2024 2:54 AM EDT [facility] Urine Voided urine specimen / Unknown Non-Blood Collection / Unknown 10/29/2024 2:29 AM EDT 10/29/2024 2:37 AM EDT Radha Elias MD LAB URINE ORDERABLES Ambar l Result Performing Organization Address City/[facility]/ZIP Co de Phone Number [facility] [address] [place] [phone], [place] * MRSA/S aureus PCR, Nasal (10/29/2024 1:16 AM EDT) MRSA PCR, Nasal NOT DETECTED NOT DETECTED 10/30/2024 2:16 PM EDT [employer] [facility] S. aureus PCR, Nasal NOT DETECTED NOT DETECTED 10/30/2024 2:16 PM EDT [employer] [facility] Swab Nasal structure / Unknown Non-Blood Collection / Unknown 10/29/2024 1:16 AM EDT 10/29/2024 1:21 AM EDT [facility] 10/30/2024 2:16 PM EDT [facility] Received Date:[id number] Radha Elias MD LAB BODY FLUIDS AND STOOL S ORDERABLES Final Result TIMOTHY MURDOCK [address], [place] [address], [place] [phone] [facility] [address], [place] [address], [place] [phone] * Lactic Acid, Plasma (10/28/2024 6:17 PM EDT) Lactic Acid 1.8 0.5 - 1.9 mmol/L 10/28/2024 7:06 PM EDT [facility] Comment: Sepsis Screening: Initial [...] ORDERABLES Ambar l Result Performing Organization Address [facility] Co de Phone Number [facility] [address] [place] [phone], * (ABNORMAL) Lactic Acid, Plasma (10/28/2024 2:27 PM EDT) Lactic Acid 2.4(H) 0.5 - 1.9 mmol/L 10/28/2024 2:56 PM EDT [facility] Blood Structure of peripheral vein / Unknown Venipuncture / Unknown 10/28/2024 2:27 PM EDT 10/28/2024 2:32 PM EDT Galileo Vincent DO LAB BLOOD ORDERABLES Final Res ult Performing Organization Address City/[facility] Co de Phone Number [facility] [address] [place] [phone], * Clinician: Transfuse Red Blood Cells (10/28/2024 2:19 PM EDT) [facility] [place] BLOOD TRANSFUSION ORDERABLES F inal Result * (ABNORMAL) Lactic Acid (w/Repeat if >2) (10/28/2024 11:14 AM EDT) Lactic Acid 2.1(H) 0.5 - 1.9 mmol/L 10/28/2024 11:41 AM EDT [facility] Blood Structure of peripheral vein / Unknown Venipuncture / Unknown 10/28/2024 11:14 AM EDT 10/28/2024 11:14 AM EDT [facility] [place] LAB BLOOD ORDERABLES Final Res ult [facility] [address] [place] [address], * (ABNORMAL) POCT I-STAT Lactate W/VBG, interfaced (10/28/2024 10:38 AM EDT) Only the most recent of2 resultswithin the time period is included. Sample Type, POCT Venous 10/28/2024 10:46 AM EDT [facility], P[facility] Lactate, POCT 1.65 0.9 - 1.7 mmol/L 10/28/2024 10:46 AM EDT [facility] pH, POCT 7.39 7.31 - 7.41 pH 10/28/2024 10:46 AM EDT [facility] pCO2, POCT 28.5(L) 41 - 51 mm Hg 10/28/2024 10:46 AM EDT [facility], POC pO2, POCT 61(H) 35 - 40 mm Hg 10/28/2024 10:46 AM EDT [facility] Base Excess, POCT -8(L) 0 - 3 mmol/L 10/28/2024 10:46 AM EDT [facility] HCO3, POCT 17.2(L) 23 - 28 mmol/L 10/28/2024 10:46 AM EDT [facility] [facility], [facility] TCO2, POCT 18(L) 24 - 29 mmol/L 10/28/2024 10:46 AM EDT [facility], [facility] Saturated O2, POCT 91(H) 70 - 75 % 10/28/2024 10:46 AM EDT [facility] Trino's Test, POCT N/A 10/28/2024 10:46 AM EDT [facility] Blood 10/28/2024 10:3 8 AM EDT 10/28/2024 10:46 AM EDT [facility] [place] [facility] POCT ORDERABLES - DEVICE F inal Result [facility], [facility]OC [address] [place] [address], [place] * Blood Culture (10/28/2024 9:18 AM EDT) Only the most recent of2 resultswithin the time period is included. Culture No growth after 5 days 11/02/2024 3:14 PM EDT [employer] [facility] Blood Structure of peripheral vein / Unknown Venipuncture / Unknown 10/28/2024 9:18 AM EDT 10/28/2024 9:29 AM EDT Narrative [facility] - 11/02/2024 3:14 PM EDT [facility] Received Date: MICRO NUMBER: [id number] SPECIMEN QUALITY: Adequate SOURCE: BLOOD VENOUS, PERIPHERAL STATUS: FINAL COMMENT: Aerobic and anaerobic bottle received. [facility] [place] [facility] MICROBIOLOGY - GENERAL ORD ERABLES Final Result TIMOTHY MURDOCK [address] [facility] [address], [place] [address], [place] [phone] [employer] [facility] [address] [facility] [address], [place] [address], [place] [phone] * Blood Bank: Prepare Red Blood Cells Transfusion indications: HCT<= 24% or Hgb <= 8 gm/dL and symptomatic; Irradiated?: No; Special requirements: Leukoreduced: 1 Units (10/28/2024 9:14 AM EDT) Product Code M8390N21 MEM BLO OD BANK INFCE Unit Number [id number] [facility] BLOOD BANK INFCE Unit ABO A MEM BLOOD BANK INFCE Unit RH NEG MEM BLOOD BANK INFCE Crossmatch Compatible MEM BLOO D BANK INFCE Dispense Status Presumed Transfuse MEM BLOOD BANK INFCE Blood Expiration Date [id number] [facility] IN[facility] Blood Type Barcode 0600 MEM [facility]LOOD B[facility] INFCE Dispensed Volume 282 ML [facility] BLO[facility] BANK INFCE Other 10/28/2024 9:14 AM EDT 10/28/2024 9:20 AM EDT Galileo Vincent DO BLOOD BANK PRODUCT ORDERABLES Final Result [facility] INFCE [address] [place] [address], [place] [phone] * (ABNORMAL) Iron Saturation (10/28/2024 9:00 AM EDT) Iron Saturation 1:12 PM EDT [facility] Comment:Unable to Calculate Iron <10(L) 30 - 160 ug/dL 10/28/2024 1:12 PM EDT [facility] Transferrin 306 200 - 360 mg/dL 10/28/2024 1:12 PM EDT [facility] Total Iron Binding Capacity 383 255 - 450 ug/dL 10/28/2024 1:12 PM EDT [facility] Blood Structure of peripheral vein / Unknown Venipuncture / Unknown 10/28/2024 9:00 AM EDT 10/28/2024 9:17 AM EDT us Radha Chan DO LAB BLOOD ORDERABLES F inal Result [facility] [address] [place] [address], [place] * (ABNORMAL) Manual Differential (10/28/2024 9:00 AM EDT) Neutrophil %, Manual 91 % 10/28/2024 9:57 AM EDT [facility] Band % 3 0 - 7 % 10/28/2024 9:57 AM EDT [facility] Lymphocyte %, Manual 2 % 10/28/2024 9:57 AM EDT [facility] Monocyte %, Manual 4 % 10/28/2024 9:57 AM EDT [facility] Eosinophil %, Manual 0 % 10/28/2024 9:57 AM EDT [facility] Basophil %, Manual 0 % 10/28/2024 9:57 AM EDT [facility] Total Neutrophil #, Manual 12.13(H) 1.50 - 7.80 10*3/uL 10/28/2024 9:57 AM EDT [facility] Bands #,Manual 0.39 10*3/uL 10/28/2024 9:57 AM EDT [facility] Total Lymph #, Manual 0.26(L) 0.85 - 3.90 10*3/uL 10/28/2024 9:57 AM EDT [facility] Monocyte #, Manual 0.52 0.20 - 0.95 10*3/uL 10/28/2024 9:57 AM EDT [facility] Eosinophil #, Manual 0.00(L) 0.02 - 0.50 10*3/uL 10/28/2024 9:57 AM EDT [facility] Basophil #, Manual 0.00 0.00 - 0.20 10*3/uL 10/28/2024 9:57 AM EDT [facility] Platelet Estimate Adequate Adequate 10/28/2024 9:57 AM EDT [facility] RBC Morphology Present(A) Normal, No clinically significant RBC morphology present (ICSH guidelines, 2015). 10/28/2024 9:57 AM EDT [facility] Microcytes 2+(A) Not Present 10/28/2024 9:57 AM EDT [facility] Total Cells Counted 115 10/28/2024 9:57 AM EDT [facility] Blood Structure of peripheral vein / Unknown Venipuncture / Unknown 10/28/2024 9:00 AM EDT 10/28/2024 9:17 AM EDT [facility] [employer] BLOOD ORDERABLES Final Res ult [facility] [address] [place] [address], [place] * Type and Screen (10/28/2024 9:00 AM EDT) ABO Blood Type A 10/28/2024 10:05 AM EDT [facility] INF[facility] RH Type Negative 10/28/2024 10:05 AM EDT [facility] INF[facility] Expiration Date/Time 2024-10-31 23:59 10/28/2024 10:05 AM EDT [facility] Antibody Screen Negative 10/28/2024 10:05 AM EDT [facility] INFCE Blood Structure of peripheral vein / Unknown Venipuncture / Unknown 10/28/2024 9:00 AM EDT 10/28/2024 9:20 AM EDT [facility] BLOOD BANK TEST ORDERABLES Edited Result - Final Performing Organization Address [facility] de Phone Number [facility] BLOOD BANK INFCE [address] [place] [address], * (ABNORMAL) Folate (10/28/2024 9:00 AM EDT) Folate 30.2(H) 4.8 - 24.2 ng/mL 10/28/2024 1:39 PM EDT [facility] Blood Structure of peripheral vein / Unknown Venipuncture / Unknown 10/28/2024 9:00 AM EDT 10/28/2024 9:17 AM EDT Radha Chan DO LAB BLOOD ORDERABLES F inal Result Performing Organization Address [facility] de Phone Number [facility] [address] [place] [address], [place] * Ferritin (10/28/2024 9:00 AM EDT) Pathologist [facility] Ferritin 66.8 11.0 - 306.0 ng/mL 10/28/2024 1:12 PM EDT [facility] Blood Structure of peripheral vein / Unknown Venipuncture / Unknown 10/28/2024 9:00 AM EDT 10/28/2024 9:17 AM EDT Radha Chan DO LAB BLOOD ORDERABLES F inal Result Performing Organization Address [facility] de Phone Number [facility] [address] [place] [address], [place] * Vitamin B12 (10/28/2024 9:00 AM EDT) Vitamin B12 613 232 - 1,245 pg/mL 10/28/2024 1:12 PM EDT [facility] Blood Structure of peripheral vein / Unknown Venipuncture / Unknown 10/28/2024 9:00 AM EDT 10/28/2024 9:17 AM EDT us Rdaha Chan DO LAB BLOOD ORDERABLES F inal Result [facility] [address] [place] [address], [place] * XR Chest Portable 1 View [...] obtain the completed interpretation. ? Workstation ID: [id number] Narrative 10/28/2024 5:57 AM EDT XR CHEST [...] no acute osseous abnormalities. Resulting Agency Comment [id number] Procedure Note Janiya Palmer MD - 10/28/2024 [...] possible to obtain thecompleted interpretation. Workstation ID: [id number] us Lester Wilde MD IMG XR PROCEDURES Final Res ult * COVID-19, Flu A/B & RSV RNA PCR, Symptomatic (10/28/2024 5:14 AM EDT) PCR, SARS CoV-2 RNA Not Detected Not Detected CEPHEID GENEXPERT 10/28/2024 6:11 AM EDT [facility] Comment:A Not Detected (Nega [...] Detected CEPHEID GENEXPERT 10/28/2024 6:11 AM EDT [facility] Comment:Negative results do not preclude infection and should not be used as the sole basis for diagnosis, treatment or other patient management decisions. Negative results must be combined with clinical observations, patient history, and/or epidemiological information. Flu B RNA PCR Not Detected Not Detected CEPHEID GENEXPERT 10/28/2024 6:11 AM EDT [facility] Comment:Negative results do not preclude infection and should not be used as the sole basis for diagnosis, treatment or other patient management decisions. Negative results must be combined with clinical observations, patient history, and/or epidemiological information. RSV RNA PCR Not Detected Not Detected CEPHEID GENEXPERT 10/28/2024 6:11 AM EDT [facility] Comment:Negative results do not preclude infection and should not be used as the sole basis for diagnosis, treatment or other patient management decisions. Negative results must be combined with clinical observations, patient history, and/or epidemiological information. Swab (Nares) Non-Blood Collection / Unknown 10/28/2024 5:14 AM EDT 10/28/2024 5:19 AM EDT Narrative [facility] - 10/28/2024 6:11 AM EDT This test was developed, validated and its performance characteristics determined by [facility]. This test has not been cleared or approved by the U.S. Food and Drug Administration (FDA). FDA Policy for Diagnostic Tests for Coronavirus Disease-2019 during the Public Health Emergency issued September 25, 2019, is followed. Lester Wilde MD LAB BODY FLUIDS AND STOOLS ORDERABLES Final Result Performing Organization Address [facility]/ZIP Co de Phone Number [facility] [address] [place] [address], [place] * Tejada Top, Urine (10/28/2024 2:47 AM EDT) Extra Tube Hold for add-ons. 10/28/2024 7:05 AM EDT [facility] Comment:Auto resulted. Urine Urine specimen collection, clean catch / Unknown Non-Blood Collection / Unknown 10/28/2024 2:47 AM EDT 10/28/2024 2:50 AM EDT Renard Hernandez MD LAB URINE ORDERABLES Final Res ult Performing Organization Address City/[facility]/ZIP Co de Phone Number [facility] [address] [place] [address], [place] * (ABNORMAL) Urinalysis W/Reflex to Microscopic & Culture (10/28/2024 2:47 AM EDT) Color, Urine Yellow Colorless, Light Yellow, Yellow, Dark Yellow 10/28/2024 3:24 AM EDT [facility] Clarity, Urine Cloudy(A) Clear 10/28/2024 3:24 AM [facility] Specific [place], Urine 1.024 <1.030 10/28/2024 3:24 AM [facility] pH, Urine 6.0 4.6 - 8.0 10/28/2024 3:24 AM [facility] Protein, Urine 1+(A) Negative 10/28/2024 3:24 AM [facility] Glucose, Urine Normal Normal 10/28/2024 3:24 AM [facility] Ketones, Urine Negative Negative 10/28/2024 3:24 AM [facility] Bilirubin, Urine Negative Negative 10/28/2024 3:24 AM [facility] Blood, Urine 1+(A) Negative 10/28/2024 3:24 AM [facility] Nitrite, Urine Negative Negative 10/28/2024 3:24 AM [facility] Urobilinogen, Urine Normal Normal 10/28/2024 3:24 AM [facility] Leukocyte Esterase, Urine 3+(A) Negative 10/28/2024 3:24 AM [facility] WBC, Urine >182(H) 0 - 2 /HPF 10/28/2024 3:24 AM [facility] WBC Clumps, Urine Few /HPF 10/28/2024 3:24 AM [facility] RBC, Urine 12(H) 0 - 2 /HPF 10/28/2024 3:24 AM [facility] Hyaline Casts, Urine 0 0 - 2 /LPF 10/28/2024 3:24 AM [facility] Squamous Epithelial Cells, Urine 2 /HPF 10/28/2024 3:24 AM [facility] Trans Epithelial Cells, Urine 1 /HPF 10/28/2024 3:24 AM EDT [facility] Bacteria, Urine Moderate(A) None /HPF /HPF 10/28/2024 3:24 AM EDT [facility] Urine Urine specimen collection, clean catch / Unknown Non-Blood Collection / Unknown 10/28/2024 2:47 AM EDT 10/28/2024 2:50 AM EDT us Renard Hernandez MD LAB URINE ORDERABLES Final Res ult [facility] [address] [place] [address], [place] * (ABNORMAL) Urine Culture, Routine (10/28/2024 2:47 AM EDT) Culture Results Updated 10/31/2024 5:55 AM EDT [employer] [facility] Culture Escherichia coli(A) 10/31/2024 5:55 AM EDT [employer] [facility] Comment:Greater than 100,000 CFU/mL of Escherichia coli Culture Klebsiella pneumoniae(A) 10/31/2024 5:55 AM EDT [employer] [facility] Comment:Greater than 100,000 CFU/mL of Klebsiella pneumoniae Urine Urine specimen collection, clean catch / Unknown Non-Blood Collection / Unknown 10/28/2024 2:47 AM EDT 10/28/2024 3:24 AM EDT [facility] 10/31/2024 5:55 AM EDT [employer] Received Date: MICRO NUMBER: [id number] SPECIMEN QUALITY: Adequate SOURCE: URINE CLEAN CATCH [...] Not Reported NN = See Therapy Comments us Radha Chan DO LAB MICROBIOLOGY - GEN ERAL ORDERABLES Final Result TIMOTHY [address], [place] [address], [place] [phone] [employer] [facility] [address] [facility] [address], [place] [address], [place] [phone] * CT Abdomen Pelvis with Contrast (10/28/2024 [...] obtain the completed interpretation. ? Workstation ID: [id number] Up-to-date CT equipment and radiation dose reduction [...] of the osseous structures. Resulting Agency Comment [id number] Procedure Note Richard Newton MD - 10/28/2024 PROCEDURE: CT ABDOMEN PELVIS W CONTRAST INDICATION: [...] possible to obtain thecompleted interpretation. Workstation ID: [id number] Up-to-date CT equipment and radiation dose reduction techniques wereemployed. CTDIvol: 18.7 mGy. DLP: 948 mGy-cm. Renadr Hernandez MD [facility] CT PROCEDURES Final Result * XR Hip [...] obtain the completed interpretation. ? Workstation ID: [id number] Narrative 10/28/2024 4:17 AM EDT COMPARISONS: None. FINDINGS: Hip joint spaces are only mildly narrowed. ??Mild narrowing and degenerative change of the pubic symphysis. ??Mild sacroiliac degenerative change. ??Bones appear probably demineralized. ??No evidence of fracture, dislocation or lysis. ??Mild vascular calcification. Resulting Agency Comment [id number] Procedure Note Sid Valenzuela MD - 10/28/2024 [...] possible to obtain thecompleted interpretation. Workstation ID: [id number] Renard Hernandez MD [facility] XR PROCEDURES Final Result * Tejada Top (10/28/2024 1:02 AM EDT) Pathologist [facility] Extra Tube Hold for add-ons. 10/28/2024 5:05 AM EDT [facility] Comment:Auto resulted. Blood Structure of peripheral vein / Unknown 10/28/2024 1:02 AM EDT 10/28/2024 1:02 AM EDT Renard Hernandez MD LAB BLOOD ORDERABLES Final Res ult [facility] [address] [place] [address], [place] * Lavender Top (10/28/2024 1:02 AM EDT) Extra Tube Hold for add-ons. 10/28/2024 5:05 AM EDT [facility] Comment:Auto resulted. Blood Structure of peripheral vein / Unknown 10/28/2024 1:02 AM EDT 10/28/2024 1:02 AM EDT Renard Hernandez MD LAB BLOOD ORDERABLES Final Res ult Performing Organization Address [facility] Co de Phone Number [facility] [address] [place] [address], [place] * Magnesium (10/28/2024 12:58 AM EDT) MG 1.8 1.6 - 2.4 mg/dL 10/28/2024 1:35 AM EDT [facility] Blood Structure of peripheral vein / Unknown Venipuncture / Unknown 10/28/2024 12:58 AM EDT 10/28/2024 1:01 AM EDT Renard Hernandez MD LAB BLOOD ORDERABLES Final Res ult Performing Organization Address City/[facility]/ZIP Co de Phone Number [facility] [address] [place] [address], [place] * Lipase (10/28/2024 12:58 AM EDT) Lipase 28 13 - 60 U/L 10/28/2024 1:35 AM EDT [facility] Blood Structure of peripheral vein / Unknown Venipuncture / Unknown 10/28/2024 12:58 AM EDT 10/28/2024 1:01 AM EDT us Renard Hernandez MD LAB BLOOD ORDERABLES Final Res ult [facility] [address] [place] [address], * (ABNORMAL) CMP - Comprehensive Metabolic Panel (10/28/2024 12:58 AM EDT) NA 128(L) 135 - 145 mmol/L 10/28/2024 1:35 AM EDT [facility] K 4.7 3.5 - 5.3 mmol/L 10/28/2024 1:35 AM EDT [facility] Cl 96(L) 98 - 107 mmol/L 10/28/2024 1:35 AM EDT [facility] CO2 17(L) 22 - 32 mmol/L 10/28/2024 1:35 AM EDT [facility] Anion Gap 15 5 - 15 10/28/2024 1:35 AM EDT [facility] Glucose 160(H) 65 - 99 mg/dL 10/28/2024 1:35 AM EDT [facility] Creatinine 2.23(H) 0.50 - 1.20 mg/dL 10/28/2024 1:35 AM EDT [facility] Calcium 9.5 8.6 - 10.5 mg/dL 10/28/2024 1:35 AM EDT [facility] Total Protein 6.6 6.0 - 8.0 g/dL 10/28/2024 1:35 AM [facility] Albumin 3.5 3.5 - 5.2 g/dL 10/28/2024 1:35 AM [facility] Bilirubin, Total 1.2 0.2 - 1.2 mg/dL 10/28/2024 1:35 AM [facility] Alkaline Phosphatase 94 35 - 129 U/L 10/28/2024 1:35 AM [facility] AST 37 10 - 40 U/L 10/28/2024 1:35 AM [facility] ALT 9(L) 10 - 40 U/L 10/28/2024 1:35 AM [facility] BUN 67(H) 7 - 23 mg/dL 10/28/2024 1:35 AM [facility] eGFR 22(L) >=60 mL/min/1 .73m2 10/28/2024 1:35 AM [facility] Comment:The estimated glomer ular [...] 2.1 - 4.2 g/dL 10/28/2024 1:35 AM [facility] A/G Ratio 1.1(L) 1.5 - 3.0 10/28/2024 1:35 AM [facility] Blood Structure of peripheral vein / Unknown Venipuncture / Unknown 10/28/2024 12:58 AM EDT 10/28/2024 1:01 AM EDT us Renard Hernandez MD LAB BLOOD ORDERABLES Final Res ult [facility] [address] [place] [address], [place] * Urinalysis, Outside Lab (09/02/2024 9:20 AM EST) us Christen Lopes MD LAB URINE ORDERABLES Final Re sult * LAB - SCANNED (08/29/2024) us Onbase Scan [facility] LAB HISTORICAL RESULTS Final Result from Last 3 Months Insurance [facility] MEDICARE Advance Directives Documents on File Type Date Recorded Patient Silverware Buffing Machine Operator Expl anation Health Care Proxy 10/17/2024 7:28 [...] Communication Martita Pope Daughter Health Care Agent [email or web address] Care Teams Roll Over Loader Relationship Specialty Start Date End Date Andree Lindquist PCP - General Family Medicine 03/26/23
--- OUTSIDE RECORDS SUMMARY | 2024-11-20 10:12 | XMS_ITS | Encounter Summary ---
Author Organization [facility] Address [address] [place] [address] Care Team Providers Care Hard Metals Engraver Hand Name Role Phone Meghan Hicks MD Primary Care Provider Beatrice Garvey MD Unavailable [facility], Pcp Primary Care Provider Unavailabl e Meghan Hciks MD Primary Care Provider Andree Stallworth MD Primary Care Provider Unavaila narinder Encounter Details Date Type Department Care Team Description 06/19/2013 Vamp Creaser Report Medical Records [address] [place] [id number] Ashok Forbes MD Social History Tobacco Use Types Packs/Day [...] on filedocumented in this encounter Care Teams Hard Metals Engraver Hand Relationship Specialty Start Date End Date Meghan Hicks MD PCP - General Internal Medicine 04/08/12 01/15/22 [facility], Pcp PCP - General Internal Medicine 01/16/22 03/05/22 Meghan Hicks MD PCP - General Internal Medicine 03/06/22 03/18/22 Andree Gonzalez MD PCP - General Internal Medicine 03/19/22 Beatrice Holloway MD Specialist Cardiology 07/31/21 documented as of this encounter
--- OUTSIDE RECORDS SUMMARY | 2024-11-20 10:12 | XMS_ITS | Encounter Summary ---
Author Organization [facility] Address [address] [place] [address] Care Team Providers Care Occupational Therapy Assistant Name Role Phone Meghan Hicks MD Primary Care Provider Beatrice Garvey MD Unavailable [facility], Pcp Primary Care Provider UnavailMeghan Jones MD Primary Care Provider Andree Stallworth MD Primary Care Provider Unavailnathaly barcenas Encounter Details Date Type Department Care Team Description 08/31/2019 Business Doc Medical Records [address] [place] [id number] Abstract, Provider Social History Tobacco Use Types [...] on filedocumented in this encounter Care Teams Occupational Therapy Assistant Relationship Specialty Start Date End Date Meghan Hicks MD PCP - General Internal Medicine 04/08/12 01/15/22 [facility], Pcp PCP - General Internal Medicine 01/16/22 03/05/22 Meghan Hicks MD PCP - General Internal Medicine 03/06/22 03/18/22 Andree Gonzalez MD PCP - General Internal Medicine 03/19/22 Beatrice Holloway MD Specialist Cardiology 07/31/21 documented as of this encounter
--- OUTSIDE RECORDS SUMMARY | 2024-11-20 10:12 | XMS_ITS | Encounter Summary ---
Author Organization [facility] Address [address] [place] [address] Care Team Providers Care Pin Feather Machine Operator Name Role Phone Meghan Hicks MD Primary Care Provider Beatrice Garvey MD Unavailable [facility], Pcp Primary Care Provider Unavailabl e Meghan Hicks MD Primary Care Provider Andree Stallworth MD Primary Care Provider Unavaila ble Encounter Details Date Type Department Care Team Description [facility] [address] [phone] Meghan Hicks MD Social History Tobacco Use [...] on filedocumented in this encounter Care Teams Pin Feather Machine Operator Relationship Specialty Start Date End Date Meghan Hicks MD PCP - General Internal Medicine 04/08/12 01/15/22 [facility], Pcp PCP - General Internal Medicine 01/16/22 03/05/22 Meghan Hicks MD PCP - General Internal Medicine 03/06/22 03/18/22 Andree Gonzalez MD PCP - General Internal Medicine 03/19/22 Beatrice Holloway MD Specialist Cardiology 07/31/21 documented as of this encounter
--- OUTSIDE RECORDS SUMMARY | 2024-11-20 10:12 | XMS_ITS | Encounter Summary ---
Author Organization [facility] Address [address] [place] [address] Care Team Providers Care Patient Relations Coordinator Name Role Phone Meghan Hicks MD Primary Care Provider Beatrice Garvey MD Unavailable [facility], [facility] Primary Care Provider Meghan Chacko MD Primary Care Provider Andree Stallworth MD Primary Care Provider Janene barcenas Encounter Details Date Type Department Care Team Description 02/09/2020 Pt. Non Urgent Medic al Question Adult Medicine [address] [address] Meghan Hicks MD Social History Tobacco Use [...] as of this encounter Progress Notes * Shayy Scales R.N. - 02/09/2020 8:52 AM EDTFrom: Francine Pope To: Meghan Hicks MD Sent: 02/09/2020 7:42 AM EDT Subject: Metformen The new metformen makes me feel like vomiting is there something else I can take. documented in this encounter Plan of Treatment Not on file documented as of this encounter Visit Diagnoses Not on filedocumented in this encounter Care Teams Patient Relations Coordinator Relationship Specialty Start Date End Date Meghan Hicks MD PCP - General Internal Medicine 04/08/12 01/15/22 [facility], Pcp PCP - General Internal Medicine 01/16/22 03/05/22 Meghan Hicks MD PCP - General Internal Medicine 03/06/22 03/18/22 Andree Gonzalez MD PCP - General Internal Medicine 03/19/22 Beatrice Holloway MD Specialist Cardiology 07/31/21 documented as of this encounter
--- OUTSIDE RECORDS SUMMARY | 2024-11-20 10:12 | XMS_ITS | Encounter Summary ---
Author Organization [facility] Address [address] [place] [address] Care Team Providers Care Wheel Installer Name Role Phone Meghan Hicks MD Primary Care Provider Beatrice Garvey MD Unavailable [facility], Pcp Primary Care Provider Unavailbrown e Meghan Hicks MD Primary Care Provider Andree Stallworth MD Primary Care Provider Unavaila ble Encounter Details Date Type Department Care Team Description 05/18/2013 Transfer Records Medical Records [address] [place] [id number] [place] [address] [id number] Social History Tobacco Use Types Packs/Day Years [...] on filedocumented in this encounter Care Teams Wheel Installer Relationship Specialty Start Date End Date Meghan Hicks MD PCP - General Internal Medicine 04/08/12 01/15/22 [facility], Pcp PCP - General Internal Medicine 01/16/22 03/05/22 Meghan Hicks MD PCP - General Internal Medicine 03/06/22 03/18/22 Andree Gonzalez MD PCP - General Internal Medicine 03/19/22 Beatrice Holloway MD Specialist Cardiology 07/31/21 documented as of this encounter
--- OUTSIDE RECORDS SUMMARY | 2024-11-20 10:12 | XMS_ITS | Encounter Summary ---
Author Organization [employer] Address [address] [facility] 7[address] [place] [address] Care Team Providers Care Ocean Freight Manager Name Role Phone Unavailable Primary Care [...] Description 02/21/2025 10:50 AM EDT Office Visit [facility] DENTAL [address] [place] [address] Krystal Ramesh documented as of this encounter Visit Diagnoses Not on filedocumented in this encounter Care Teams Ocean Freight Manager Relationship Specialty Start Date End Date Dr. Meghan Hicks Primary Care Provider 08/17/[address] Andree Lindquist [facility] Primary Care [place], [place] Primary Care Provider 08/17/22 documented as of this encounter
--- OUTSIDE RECORDS SUMMARY | 2024-11-20 10:13 | XMS_ITS | Encounter Summary ---
Author Organization [facility] Address [address] [place] [address] Care Team Providers Care Cell Inspector Name Role Phone Meghan Hicks MD Primary Care Provider Beatrice Garvey MD Unavailable [facility], Pcp Primary Care Provider Unavailabl e Meghan Hicks MD Primary Care Provider Andree Stallworth MD Primary Care Provider Unavailnathaly barcenas Encounter Details Date Type Department Care Team Description 01/31/2018 Net Application Support Specialist Report Medical Records [address] [place] [address] Geraldo Reis MD, MD Social History Tobacco [...] on filedocumented in this encounter Care Teams Cell Inspector Relationship Specialty Start Date End Date Meghan Hicks MD PCP - General Internal Medicine 04/08/12 01/15/22 [facility], Pcp PCP - General Internal Medicine 01/16/22 03/05/22 Meghan Hicks MD PCP - General Internal Medicine 03/06/22 03/18/22 Andree Gonzalez MD PCP - General Internal Medicine 03/19/22 Beatrice Holloway MD Specialist Cardiology 07/31/21 documented as of this encounter
--- OUTSIDE RECORDS SUMMARY | 2024-11-20 10:13 | XMS_ITS | Encounter Summary ---
Author Organization [facility] Address [address] [place] [address] Care Team Providers Care Portfolio Consultant Name Role Phone Meghan Hicks MD Primary Care Provider Beatrice Garvey MD Unavailable [facility], Pcp Primary Care Provider Unavailabl e Meghan Hicks MD Primary Care Provider Andree Stallworth MD Primary Care Provider Unavailnathaly barcenas Encounter Details Date Type Department Care Team Description 02/21/2021 Field Ironworker Report Medical Records [address] [place] [address] Social History Tobacco Use Types Packs/Day Years [...] on filedocumented in this encounter Care Teams Portfolio Consultant Relationship Specialty Start Date End Date Meghan [...]
--- OUTSIDE RECORDS SUMMARY | 2024-11-20 10:13 | XMS_ITS | Encounter Summary ---
[facility] Organization [facility] Address [address] [place] [address] Care Team Providers Care Heel Cutter Name Role Phone Meghan Hicks MD Primary Care Provider Beatrice Garvey MD Unavailable [facility], Pcp Primary Care Provider UnavailMeghan Jones MD Primary Care Provider UnaAndree Zapata MD Primary Care Provider Unavaila ble Encounter Details Date Type Department Care Team Description 02/04/2018 Orders Only Medical Records [address] [place] [address] Meghan Hicks MD LVH (left ventricular hypertrophy) Social History Tobacco Use Types Packs/Day Years [...] Procedure Name Priority Date/Time Associated Diagnosis Comments OUTSIDE ECHO Routine 02/02/2018 documented in this encounter Results * OUTSIDE ECHO (02/02/2018) Meghan Hicks MD CARDIOLOGY documented in this encounter Visit Diagnoses Diagnosis LVH (left ventricular hypertrophy) Cardiomegaly documented in this encounter Care Teams Heel Cutter Relationship Specialty Start Date End Date Meghan Hicks MD PCP - General Internal Medicine 04/08/12 01/15/22 [facility], Pcp PCP - General Internal Medicine 01/16/22 03/05/22 Meghan Hicks MD PCP - General Internal Medicine 03/06/22 03/18/22 Andree Gonzalez MD PCP - General Internal Medicine 03/19/22 Beatrice Holloway MD Specialist Cardiology 07/31/21 documented as of this encounter
--- OUTSIDE RECORDS SUMMARY | 2024-11-20 10:13 | XMS_ITS | Encounter Summary ---
Author [facility] Address [address] [place] [address] Care Team Providers Care Etcher Apprentice Name Role Phone Meghan Hicks MD Primary Care Provider UnaBeatrice Puente MD Unavailable [facility], Pcp Primary Care Provider Unavailabl e Meghan Hicks MD Primary Care Provider Unava Andree Nicholas MD Primary Care Provider Unavaila ble Reason for Visit * Reason Onset Date Comments Quality Measure 04/20/2014 LDL Encounter Details Date Type Department Care Team Description 04/20/2014 Telephone Medicine/Pediatrics - [address] [phone] Meghan Hicks MD Quality Measure (LDL) Social History Tobacco Use Types Packs/Day Years [...] encounter Miscellaneous Notes * Telephone Encounter - Terrie Dominguez R.N. - 04/20/2014 11:21 AM EDT Quality - LDL Order placed for repeat lipid panel at 3 month f/u documented in this encounter Plan of Treatment Not on file documented as of this encounter Results * (ABNORMAL) LIPID PROFILE (06/15/2014 10:32 AM EST) Cholesterol 323(H) 0 - 200 mg/dL 06/15/2014 1:18 PM EST [facility] TRIGLYCERIDES 346(H) 0 - 150 mg/dL 06/15/2014 1:00 PM [facility] HDL CHOLESTEROL 54 >40 mg/dL 4 1:00 PM [facility] LDL CALCULATED 200(H) 0 - 100 mg/dL 06/15/2014 1:18 PM [facility] TC-HDLC RATIO 6(H) 0.0 - 4.4 mg/dL 06/15/2014 1:18 PM [facility] 06/15/2014 10:3 2 AM EST 06/15/2014 10:33 AM EST Meghan Hicks MD LAB Performing Organization Address City/State/[facility] de Phone Number [id number] documented in this encounter Visit Diagnoses Diagnosis Hyperlipidemia- Primary Other and unspecified hyperlipidemia documented in this encounter Care Teams Etcher Apprentice Relationship Specialty Start Date End Date Meghan Hicks MD PCP - General Internal Medicine 04/08/12 01/15/22 [facility], Pcp PCP - General Internal Medicine 01/16/22 03/05/22 Meghan Hicks MD PCP - General Internal Medicine 03/06/22 03/18/22 Andree Gonzalez MD PCP - General Internal Medicine 03/19/22 Beatrice Holloway MD Specialist Cardiology 07/31/21 documented as of this encounter
--- OUTSIDE RECORDS SUMMARY | 2024-11-20 10:13 | XMS_ITS | Encounter Summary ---
Author [facility] Address [address] [place] [address] Care Team Providers Care Hostler Helper Name Role Phone Beatrice Holloway MD Unavailable Meghan Hicks MD Primary Care Provider Unava ilable Andere Gonzalez MD Primary Care Provider Unavaila ble Encounter Details Date Type Department Care Team Description 03/18/2022 Release of Information Medical Records [address] [place] [phone] [place] [address] Social History Tobacco Use Types Packs/Day Years [...] Exposure Response Date Recorded In the last 10 days, have salma joshua been in contact with someone who was confirmed or suspected to have Coronavirus/COVID-19? No / Unsure 03/19/2022 2:03 PM EDT documented as of this encounter Plan of Treatment Not on file documented as of this encounter Visit Diagnoses Not on filedocumented in this encounter Care Teams Hostler Helper Relationship Specialty Start Date End Date Meghan Hicks MD PCP - General Internal Medicine 03/06/22 03/18/22 Andree Gonzalez MD PCP - General Internal Medicine 03/19/22 Beatrice Holloway MD Specialist Cardiology 07/31/21 documented as of this encounter
--- OUTSIDE RECORDS SUMMARY | 2024-11-20 10:13 | XMS_ITS | Encounter Summary ---
Author Organization [facility] Address [address] [place] [address] Care Team Providers Care Drafter Detail Name Role Phone Meghan Hicks MD Primary Care Provider Beatrice Garvey MD Unavailable [facility], Pcp Primary Care Provider Unavailabl e Meghan Hicks MD Primary Care Provider Andree Stallworth MD Primary Care Provider Unavaila narinder Encounter Details Date Type Department Care Team Description 02/11/2018 [facility] Medical Records [address] [place] [address] Kisha Romero MD Social History Tobacco Use Types Packs/Day [...] on filedocumented in this encounter Care Teams Drafter Detail Relationship Specialty Start Date End Date Meghan [...]
--- OUTSIDE RECORDS SUMMARY | 2024-11-20 10:13 | XMS_ITS | Encounter Summary ---
Author Organization [facility] Address [address] [place] [address] Care Team Providers Care Dance Historian Name Role Phone Meghan Hicks MD Primary Care Provider UnaBeatrice Puente MD Unavailable [facility] Primary Care Provider Unavailabl Meghan Pereira MD Primary Care Provider Andree Stallworth MD Primary Care Provider Unavaila ble Reason for Referral * EXTERNAL (Routine) - Authorized/Booked Specialty Diagnoses / Procedures Referred By Contac t Referred To Contact Neurology Procedures REFERRAL TO NEUROLOGY Meghan Hicks MD [address] [place] [id number] External Neurology Referral ID Status Reason Start Date Expiration Date V isits Requested Visits Authorized SEE NOTE Authorized/B ooked 04/03/2018 07/05/2018 1 1 Encounter Details Date Type Department Care Team Description 03/31/2018 Pt. Non Urgent Medic al Question Medicine/Pediatrics - [address] [phone] Meghan Hicks MD Social History Tobacco Use [...] Progress Notes * Arlin Mccarthy L.P.N. - 03/31/2018 8:44 AM EDTFrom: Francine Pope To: Meghan Hicks MD Sent: 03/31/2018 7:29 AM EDT Subject: Parkinson's referral I would like to be referred to Dr. Mina Pérez [facility]. [place] [address] phone #[phone]. I would like to get in next yr Ric so thought I should schedule now. Thank You Francine documented in this encounter Plan of Treatment Not on file documented as of this encounter Visit Diagnoses Not on filedocumented in this encounter Care Teams Dance Historian Relationship Specialty Start Date End Date Meghan Hicks MD PCP - General Internal Medicine 04/08/12 01/15/22 [facility], Pcp PCP - General Internal Medicine 01/16/22 03/05/22 Meghan Hicks MD PCP - General Internal Medicine 03/06/22 03/18/22 Andree Gonzalez MD PCP - General Internal Medicine 03/19/22 Beatrice Holloway MD Specialist Cardiology 07/31/21 documented as of this encounter
--- OUTSIDE RECORDS SUMMARY | 2024-11-20 10:13 | XMS_ITS | Encounter Summary ---
Author Organization [facility] Address [address] [place] [address] Care Team Providers Care Dictating Transcribing Machine Servicer Name Role Phone Mayo Donnelly MD Primary Care Provider [phone] Encounter Details Date Type Department Care Team (Late st Contact Info) Description 07/24/2024 Lab Requisition [facility] - Main Lab [address] [facility] [place] [address] Mayo Donnelly MD [address] [place] [address] Encounter for other general examination Social History [...] AM EST) WBC 6.4 4.8 - 10.8 K/[facility] LAB HEMETOLOGY METHOD 07/24/2024 11:[address] [facility] RBC 3.90 3.80 - 4.80 M/mcL LAB HEMETOLOGY METHOD 07/24/2024 11:[address] [facility] Hemoglobin 9.4(L) 11.5 - 16.0 g/dL LAB HEMETOLOGY METHOD 07/24/2024 11:[address] [facility] Hematocrit 31.7(L) 35.0 - 47.0 % LAB HEMETOLOGY METHOD 07/24/2024 11:[address] [facility] MCV 81.1 79.0 - 98.0 FL LAB HEMETOLOGY METHOD 07/24/2024 11:[address] [facility] MCH 24.0(L) 27.0 - 32.0 pcg LAB HEMETOLOGY METHOD 07/24/2024 11:[address] [facility] MCHC 29.7(L) 32.0 - 37.0 g/dL LAB HEMETOLOGY METHOD 07/24/2024 11:[address] [facility] RDW 15.5(H) 11.0 - 15.0 % LAB HEMETOLOGY METHOD 07/24/2024 11:[address] [facility] Platelets 315 130 - 400 K/mcL LAB HEMETOLOGY METHOD 07/24/2024 11:[address] [facility] MPV 10.5 7.0 - 11.0 FL LAB HEMETOLOGY METHOD 07/24/2024 11:[address] [facility] NRBC 0.0 <1.0 % LAB HEMETOLOGY METHOD 07/24/2024 11:[address] [facility] NRBC Absolute 0.00 <0.10 K/mcL LAB HEMETOLOGY METHOD 07/24/2024 11:[address] [facility] Blood Venous blood specimen / Unknown Venipuncture / Unknown 07/24/2024 5:17 AM EST 07/24/2024 10:19 AM EST us Mayo Donnelly MD LAB BLOOD ORDERABLES Final Res ult [facility] [address] [place] [address], [place] [phone] * (ABNORMAL) Comprehensive metabolic panel (07/24/2024 5:17 AM EST) Sodium 132(L) 133 - 145 mmol/L LAB CHEMISTRY METHOD 07/24/2024 12:[address] [facility] Potassium 5.7(H) 3.5 - 5.5 mmol/L LAB CHEMISTRY METHOD 07/24/2024 12:[address] [facility] Chloride 108 96 - 110 mmol/L LAB CHEMISTRY METHOD 07/24/2024 12:[address] [facility] CO2 18(L) 21 - 32 mmol/L LAB CHEMISTRY METHOD 07/24/2024 12:[address] [facility] Anion Gap 6 3 - 11 LAB CHEMISTRY METHOD 07/24/2024 12:[address] [facility] Glucose 90 70 - 100 mg/dL LAB CHEMISTRY METHOD 07/24/2024 12:[address] [facility] BUN 74(H) 5 - 25 mg/dL LAB CHEMISTRY METHOD 07/24/2024 12:[address] [facility] Creatinine 1.54(H) 0.50 - 1.10 mg/dL LAB CHEMISTRY METHOD 07/24/2024 12:[address] [facility] eGFR 35(L) >=60 mL/min/1. 73m2 LAB CHEMISTRY METHOD 07/24/2024 12:[address] [facility] Comment:Calculation based on the??Chronic Kidney Disease Epidemiology Collaboration (CKD-EPI) equation refit??without adjustment for race. BUN/Creatinine Ratio 48.1 LAB CHEMISTRY METHOD 07/24/2024 12:[address] [facility] Calcium 9.3 8.5 - 10.5 mg/dL LAB CHEMISTRY METHOD 07/24/2024 12:[address] [facility] AST (SGOT) 20 10 - 42 unit/L LAB CHEMISTRY METHOD 07/24/2024 12:[address] [facility] ALT (SGPT) 15 10 - 60 unit/L LAB CHEMISTRY METHOD 07/24/2024 12:[address] [facility] Alkaline Phosphatase 72 42 - 121 unit/L LAB CHEMISTRY METHOD 07/24/2024 12:[address] [facility] Total Protein 6.7 6.0 - 8.0 g/dL LAB CHEMISTRY METHOD 07/24/2024 12:[address] [facility] Albumin 3.6 3.2 - 5.0 g/dL LAB CHEMISTRY METHOD 07/24/2024 12:[address] [facility] Total Bilirubin 0.3 0.0 - 1.4 mg/dL LAB CHEMISTRY METHOD 07/24/2024 12:[address] [facility] Blood Venous blood specimen / Unknown Venipuncture / Unknown 07/24/2024 5:17 AM EST 07/24/2024 10:19 AM EST us Mayo Donnelly MD LAB BLOOD ORDERABLES Final Res ult [facility] [address] [place] [address], documented in this encounter Visit Diagnoses Diagnosis Encounter for other general examination documented in this encounter Care Teams Dictating Transcribing Machine Servicer Relationship Specialty Start Date End Date Mayo Donnelly MD [address] [place] [address] PCP - General Internal Medicine 11/06/24 documented as of this encounter
--- OUTSIDE RECORDS SUMMARY | 2024-11-20 10:13 | XMS_ITS | Encounter Summary ---
Author Organization [facility] Address [address] [place] [address] Care Team Providers Care Ice Cream Dispenser Name Role Phone Meghan Hicks MD Primary Care Provider Beatrice Garvey MD Unavailable [facility], Pcp Primary Care Provider Unavailabl e Meghan Hicks MD Primary Care Provider Andree Stallworth MD Primary Care Provider Unavaila ble Encounter Details Date Type Department Care Team Description 09/11/2014 [place] Medicine/Pediatrics - [address] [phone] Eric Ochoa PA-C Social History Tobacco Use Types Packs/Day [...] on filedocumented in this encounter Care Teams Ice Cream Dispenser Relationship Specialty Start Date End Date Meghan Hicks MD PCP - General Internal Medicine 04/08/12 01/15/22 [facility], Pcp PCP - General Internal Medicine 01/16/22 03/05/22 Meghan Hicks MD PCP - General Internal Medicine 03/06/22 03/18/22 Andree Gonzalez MD PCP - General Internal Medicine 03/19/22 Beatrice Holloway MD Specialist Cardiology 07/31/21 documented as of this encounter
--- OUTSIDE RECORDS SUMMARY | 2024-11-20 10:13 | XMS_ITS | Encounter Summary ---
Author Organization [facility] Address [address] [place] [address] Care Team Providers Care Registered Dental Assistant Rda Name Role Phone Meghan Hicks MD Primary Care Provider Beatrice Garvey MD Unavailable [facility], Pcp Primary Care Provider Unavailabl e Meghan Hicks MD Primary Care Provider Andree Stallworth MD Primary Care Provider Unavailnathaly barcenas Encounter Details Date Type Department Care Team Description 08/14/2021 Compensation Director Report Medical Records [address] [place] [address] Abstract, Provider Social History Tobacco Use Types [...] on filedocumented in this encounter Care Teams Registered Dental Assistant Rda Relationship Specialty Start Date End Date Meghan Hicks MD PCP - General Internal Medicine 04/08/12 01/15/22 [facility], Pcp PCP - General Internal Medicine 01/16/22 03/05/22 Meghan Hicks MD PCP - General Internal Medicine 03/06/22 03/18/22 Andree Gonzalez MD PCP - General Internal Medicine 03/19/22 Beatrice Holloway MD Specialist Cardiology 07/31/21 documented as of this encounter
--- OUTSIDE RECORDS SUMMARY | 2024-11-20 10:13 | XMS_ITS | Encounter Summary ---
Author Organization [facility] Address [address] [place] [address] Care Team Providers Care Cook Helper Juice Name Role Phone Meghan Hicks MD Primary Care Provider Beatrice Garvey MD Unavailable [facility], Pcp Primary Care Provider Unavailabl e Meghan Hicks MD Primary Care Provider Andree Stallworth MD Primary Care Provider Unavailnathaly barcenas Encounter Details Date Type Department Care Team Description 02/10/2018 [facility] Medical Records [address] [place] [address] Social History Tobacco Use Types Packs/Day Years [...] on filedocumented in this encounter Care Teams Cook Helper Juice Relationship Specialty Start Date End Date Meghan [...]
--- OUTSIDE RECORDS SUMMARY | 2024-11-20 10:13 | XMS_ITS | Encounter Summary ---
Author Organization [facility] Address [address] [place] [address] Care Team Providers Care Agricultural Engineering Technologist Name Role Phone Meghan Hicks MD Primary Care Provider Beatrice Garvey MD Unavailable [facility], Pcp Primary Care Provider Unavailbrown e Meghan Hicks MD Primary Care Provider Andree Stallworth MD Primary Care Provider Unavailnathaly barcenas Encounter Details Date Type Department Care Team Description 10/06/2017 Shaker Plate Operator Report Medical Records [address] [place] [id number] Abstract, Provider Social History Tobacco Use Types [...] on filedocumented in this encounter Care Teams Agricultural Engineering Technologist Relationship Specialty Start Date End Date Meghan Hicks MD PCP - General Internal Medicine 04/08/12 01/15/22 [facility], Pcp PCP - General Internal Medicine 01/16/22 03/05/22 Meghan Hicks MD PCP - General Internal Medicine 03/06/22 03/18/22 Andree Gonzalez MD PCP - General Internal Medicine 03/19/22 Beatrice Holloway MD Specialist Cardiology 07/31/21 documented as of this encounter
--- OUTSIDE RECORDS SUMMARY | 2024-11-20 10:13 | XMS_ITS | Encounter Summary ---
Author Organization [facility] Address [address] [place] [address] Care Team Providers Care [place] Name Role Phone Eva Azar MD Primary Care Provider Meghan Paredes MD Primary Care Provider Beatrice Garvey MD Unavailable [facility], Pcp Primary Care Provider Meghan Chacko MD Primary Care Provider Andree Stallworth MD Primary Care Provider Janene barcenas Encounter Details Date Type Department Care Team Description 03/07/2012 [place] Medicine/Pediatrics - [address] [phone] Eva Azar MD Social History Tobacco Use Types Packs/Day Years Used Date Smoking Tobacco: Former Cigarettes 1.5 20 Q uit: 07/12/1998 Smokeless Tobacco: Never Alcohol Use Standard Drinks/Week Comments Not Asked 0 (1 standard drink = 0.6 oz pur e alcohol) Sex Assigned at Date Recorded Not on file Job Start Date Occupation Industry Not on file Not on file Not on file documented as of this encounter Plan of Treatment Not on file documented as of this encounter Visit Diagnoses Not on filedocumented in this encounter Care Teams [place] Ma[place] Relationship Specialty Start Date End Date Eva Azar MD PCP - General 04/03/10 04/07/12 Meghan Hicks MD PCP - General Internal Medicine 04/08/12 01/15/22 [facility] PCP - General Internal Medicine 01/16/22 03/05/22 Meghan Hicks MD PCP - General Internal Medicine 03/06/22 03/18/22 Andree Gonzalez MD PCP - General Internal Medicine 03/19/22 Beatrice Holloway MD Specialist Cardiology 07/31/21 documented as of this encounter
--- OUTSIDE RECORDS SUMMARY | 2024-11-20 10:13 | XMS_ITS | Encounter Summary ---
Author Organization [facility] Address [address] [place] [address] Care Team Providers Care Casket Assembler Name Role Phone Mayo Donnelly MD Primary Care Provider [phone] Encounter Details Date Type Department Care Team (Late st Contact Info) Description 07/21/2024 Lab Requisition [facility] - Main Lab [address] [facility] [place] [address] Mayo Donnelly MD [address] [place] [address] Encounter for other general examination Social History [...] AM EST) WBC 6.6 4.8 - 10.8 K/[facility] LAB HEMETOLOGY METHOD 07/21/2024 8:01 AM [facility] LAB RBC 3.90 3.80 - 4.80 M/mcL LAB HEMETOLOGY METHOD 07/21/2024 8:01 AM [facility] LAB Hemoglobin 9.4(L) 11.5 - 16.0 g/dL LAB HEMETOLOGY METHOD 07/21/2024 8:01 AM [facility] LAB Hematocrit 31.3(L) 35.0 - 47.0 % LAB HEMETOLOGY METHOD 07/21/2024 8:01 AM [facility] LAB MCV 80.3 79.0 - 98.0 FL LAB HEMETOLOGY METHOD 07/21/2024 8:01 AM [facility] LAB MCH 24.1(L) 27.0 - 32.0 pcg LAB HEMETOLOGY METHOD 07/21/2024 8:01 AM [facility] LAB MCHC 30.0(L) 32.0 - 37.0 g/dL LAB HEMETOLOGY METHOD 07/21/2024 8:01 AM [facility] LAB RDW 15.4(H) 11.0 - 15.0 % LAB HEMETOLOGY METHOD 07/21/2024 8:01 AM [facility] LAB Platelets 281 130 - 400 K/mcL LAB HEMETOLOGY METHOD 07/21/2024 8:01 AM [facility] LAB MPV 10.5 7.0 - 11.0 FL LAB HEMETOLOGY METHOD 07/21/2024 8:01 AM [facility] LAB NRBC 0.0 <1.0 % LAB HEMETOLOGY METHOD 07/21/2024 8:01 AM [facility] LAB NRBC Absolute 0.00 <0.10 K/mcL LAB HEMETOLOGY METHOD 07/21/2024 8:01 AM [facility] LAB Blood Venous blood specimen / Unknown Venipuncture / Unknown 07/21/2024 5:00 AM EST 07/21/2024 7:36 AM EST us Mayo Donnelly MD LAB BLOOD ORDERABLES Final Res ult [facility] LAB [address] [place] [address], [place] [phone] * (ABNORMAL) Comprehensive metabolic panel (07/21/2024 5:00 AM EST) Sodium 133 133 - 145 mmol/L LAB CHEMISTRY METHOD 07/21/2024 8:49 AM [facility] Potassium 5.5 3.5 - 5.5 mmol/L LAB CHEMISTRY METHOD 07/21/2024 8:49 AM [facility] LAB Chloride 103 96 - 110 mmol/L LAB CHEMISTRY METHOD 07/21/2024 8:49 AM [facility] CO2 24 21 - 32 mmol/L LAB CHEMISTRY METHOD 07/21/2024 8:49 AM [facility] LAB Anion Gap 6 3 - 11 LAB CHEMISTRY METHOD 07/21/2024 8:49 AM [facility] LAB Glucose 103(H) 70 - 100 mg/dL LAB CHEMISTRY METHOD 07/21/2024 8:49 AM [facility] BUN 54(H) 5 - 25 mg/dL LAB CHEMISTRY METHOD 07/21/2024 8:49 AM [facility] LAB Comment:Results verified by repeat testing Creatinine 1.34(H) 0.50 - 1.10 mg/dL LAB CHEMISTRY METHOD 07/21/2024 8:49 AM [facility] LAB eGFR 41(L) >=60 mL/min/1. 73m2 LAB CHEMISTRY METHOD 07/21/2024 8:49 AM [facility] LAB Comment:Calculation based on the??Chronic Kidney Disease Epidemiology Collaboration (CKD-EPI) equation refit??without adjustment for race. BUN/Creatinine Ratio 40.3 LAB CHEMISTRY METHOD 07/21/2024 8:49 AM [facility] LAB Calcium 9.8 8.5 - 10.5 mg/dL LAB CHEMISTRY METHOD 07/21/2024 8:49 AM [facility] LAB AST (SGOT) 19 10 - 42 unit/L LAB CHEMISTRY METHOD 07/21/2024 8:49 AM [facility] LAB ALT (SGPT) 16 10 - 60 unit/L LAB CHEMISTRY METHOD 07/21/2024 8:49 AM [facility] LAB Alkaline Phosphatase 68 42 - 121 unit/L LAB CHEMISTRY METHOD 07/21/2024 8:49 AM [facility] Total Protein 6.8 6.0 - 8.0 g/dL LAB CHEMISTRY METHOD 07/21/2024 8:49 AM [facility] Albumin 3.5 3.2 - 5.0 g/dL LAB CHEMISTRY METHOD 07/21/2024 8:49 AM [facility] Total Bilirubin 0.3 0.0 - 1.4 mg/dL LAB CHEMISTRY METHOD 07/21/2024 8:49 AM [facility] Blood Venous blood specimen / Unknown Venipuncture / Unknown 07/21/2024 5:00 AM EST 07/21/2024 7:36 AM EST us Mayo Donnelly MD LAB BLOOD ORDERABLES Final Res ult [facility] [address] [place] [address], documented in this encounter Visit Diagnoses Diagnosis Encounter for other general examination documented in this encounter Care Teams Casket Assembler Relationship Specialty Start Date End Date Mayo Donnelly MD [address] [place] [address] PCP - General Internal Medicine 11/06/24 documented as of this encounter
--- OUTSIDE RECORDS SUMMARY | 2024-11-20 10:13 | XMS_ITS | Encounter Summary ---
Author Organization [facility] Address [address] [place] [address] Care Team Providers Care I&C Tech Name Role Phone Meghan Hicks MD Primary Care Provider Beatrice Garvey MD Unavailable [facility] [address] [facility], Pcp Primary Care Provider Meghan Chacko MD Primary Care Provider Andree Stallworth MD Primary Care Provider Janene barcenas Encounter Details Date Type Department Care Team Description 02/06/2018 Pt. Non Urgent Medic al Question Medicine/Pediatrics - [address] [phone] Meghan Hicks MD Social History Tobacco Use [...] as of this encounter Progress Notes * Hillary Hicks RN - 02/07/2018 8:51 AM EDTFrom: Francine Pope To: Meghan Hicks MD Sent: 02/06/2018 8:46 AM EDT Subject: Echo Dr Hicks is going to refer me to cathead operator I will tx by Wed which Dr medrano want to see documented in this encounter Plan of Treatment Not on file documented as of this encounter Visit Diagnoses Not on filedocumented in this encounter Care Teams I&C Tech Relationship Specialty Start Date End Date Meghan Hicks MD PCP - General Internal Medicine 04/08/12 01/15/22 [facility] Include [address] [facility], Pcp PCP - General Internal Medicine 01/16/22 03/05/22 Meghan Hicks MD PCP - General Internal Medicine 03/06/22 03/18/22 Andree Gonzalez MD PCP - General Internal Medicine 03/19/22 Beatrice Holloway MD Specialist Cardiology 07/31/21 documented as of this encounter
--- OUTSIDE RECORDS SUMMARY | 2024-11-20 10:13 | XMS_ITS | Encounter Summary ---
Author Organization [facility] Address [address] [place] [address] Care Team Providers Care Peanut Picker Name Role Phone Meghan Hicks MD Primary Care Provider Beatrice Garvey MD Unavailable [facility], Pcp Primary Care Provider Unavailabl e Mgehan Hicks MD Primary Care Provider Andree Stallworth MD Primary Care Provider Unavaila ble Encounter Details Date Type Department Care Team Description 07/03/2021 Home Health Certification Medical Records [address] [place], [place] [phone] [place] [address] [address] [place] [address] Social History Tobacco Use Types Packs/Day Years [...] on filedocumented in this encounter Care Teams Peanut Picker Relationship Specialty Start Date End Date Meghan Hicks MD PCP - General Internal Medicine 04/08/12 01/15/22 [facility], Pcp PCP - General Internal Medicine 01/16/22 03/05/22 Meghan Hicks MD PCP - General Internal Medicine 03/06/22 03/18/22 Andree Gonzalez MD PCP - General Internal Medicine 03/19/22 Beatrice Holloway MD Specialist Cardiology 07/31/21 documented as of this encounter
--- OUTSIDE RECORDS SUMMARY | 2024-11-20 10:13 | XMS_ITS | Encounter Summary ---
Author Organization [facility] Address [address] [place] [address] Care Team Providers Care Alum Plant Operator Name Role Phone Meghan Hicks MD Primary Care Provider UnaBeatrice Puente MD Unavailable [facility], [facility] Primary Care Provider UnavailMeghan Jones MD Primary Care Provider Unava Andree Nicholas MD Primary Care Provider Unavaila ble Reason for Visit * Reason Onset Date Comments Form 08/16/2017 Encounter Details Date Type Department Care Team Description 08/16/2017 Telephone Adult Medicine - [address] [address] Meghan Hicks MD Form Social History Tobacco Use Types Packs/Day Years [...] encounter Miscellaneous Notes * Telephone Encounter - Meghan Hicks MD - 09/01/2017 3:07 PM EST I have not rec'd anything. My chart msg to pt. * Telephone Encounter - Davy Mckeon M.A. - 08/20/2017 2:29 PM EST I have not seen anything but will keep my eye out * Telephone Encounter - Meghan Hicks MD - 08/16/2017 12:27 PM EST Did forms pool receive this? * Telephone Encounter - Rozina Salter M.A. - 08/16/2017 9:39 AM EST Form, [facility] sent to you by interoffice. documented in this encounter Plan of Treatment Not on file documented as of this encounter Visit Diagnoses Not on filedocumented in this encounter Care Teams Alum Plant Operator Relationship Specialty Start Date End Date Meghan Hicks MD PCP - General Internal Medicine 04/08/12 01/15/22 [facility], Pcp PCP - General Internal Medicine 01/16/22 03/05/22 Meghan Hicks MD PCP - General Internal Medicine 03/06/22 03/18/22 Andree Gonzalez MD PCP - General Internal Medicine 03/19/22 Beatrice Holloway MD Specialist Cardiology 07/31/21 documented as of this encounter
--- OUTSIDE RECORDS SUMMARY | 2024-11-20 10:13 | XMS_ITS | Encounter Summary ---
Author Organization [facility] Address [address] [place] [address] Care Team Providers Care [facility] Name Role Phone Eva Azar MD Primary Care Provider Meghan Paredes MD Primary Care Provider Beatrice Garvey MD Unavailable [facility], Pcp Primary Care Provider Meghan Chacko MD Primary Care Provider Andree Stallworth MD Primary Care Provider Janene barcenas Encounter Details Date Type Department Care Team Description 01/22/2011 Release of Information Medical Records [address] [place] [address] Abstract, Provider Social History Tobacco Use Types Packs/Day Years Used Date Smoking Tobacco: Never Assessed Sex Assigned at Date Recorded Not on file Job Start Date Occupation Industry Not on file Not on file Not on file documented as of this encounter Plan of Treatment Not on file documented as of this encounter Visit Diagnoses Not on filedocumented in this encounter Care Teams [facility] Relationship Specialty Start Date End Date Eva Azar MD PCP - General 04/03/10 04/07/12 Meghan Hciks MD PCP - General Internal Medicine 04/08/12 01/15/22 [facility], Pcp PCP - General Internal Medicine 01/16/22 03/05/22 Meghan Hicks MD PCP - General Internal Medicine 03/06/22 03/18/22 Andree Gonzalez MD PCP - General Internal Medicine 03/19/22 Beatrice Holloway MD Specialist Cardiology 07/31/21 documented as of this encounter
--- OUTSIDE RECORDS SUMMARY | 2024-11-20 10:13 | XMS_ITS | Encounter Summary ---
Author Organization [facility] Address [address] [place] [address] Care Team Providers Care Sheet Folder Name Role Phone Beatrice Holloway MD Unavailable [facility], Pcp Primary Care Provider Meghan Chacko MD Primary Care Provider Unava Andree Nicholas MD Primary Care Provider Unavaila ble Reason for Visit * Reason Comments E-prescribe Rx Request Encounter Details Date Type Department Care Team Description 02/17/2022 Refill Medicine/Pediatrics - [address] [phone] Tg Case PA-C [address] [place] [address] E-prescribe Rx Request Social History Tobacco Use Types Packs/Day Years [...] encounter Miscellaneous Notes * Telephone Encounter - Sierra Patterson - 02/17/2022 3:31 PM EDT Patient would like script to be: E-PRESCRIBED/FAXED TO PHARMACY WHEN WAS THE PATIENT'S LAST APPOINTMENT IN ADULT MEDICINE? 09/16/2021 WHEN WAS THE LAST TIME THE PATIENT SAW THEIR PCP? Same as above Does patient have an upcoming appointment? No (THE MEDICATION REQUESTED IS ON THE MED LIST ABOVE) All of the medications requested were on the CURRENT MEDS list Did you check the Pharmacy information above?: YES Patient wants: 30 -day supply Is this a mail order prescription request ? NO If the refill is from a FAXED refill request what is the RX # listed on the fax? N/A Patients current insurance carrier is: Payor: MEDICARE-Painting With A Twist / Plan: MEDICARE-Painting With A Twist / Product Type: MEDICARE [id number] documented in this encounter Plan of Treatment Not on file documented as of this encounter Visit Diagnoses Not on filedocumented in this encounter Care Teams Sheet Folder Relationship Specialty Start Date End Date [facility], [facility] PCP - General Internal Medicine 01/16/22 03/05/22 Meghan Hicks MD PCP - General Internal Medicine 03/06/22 03/18/22 Andree Gonzalez MD PCP - General Internal Medicine 03/19/22 Beatrice Holloway MD Specialist Cardiology 07/31/21 documented as of this encounter
--- OUTSIDE RECORDS SUMMARY | 2024-11-20 10:13 | XMS_ITS | Encounter Summary ---
Author Organization [facility] Address [address] [place] [address] Care Team Providers Care Director Of Special Events Name Role Phone Mayo Donnelly MD Primary Care Provider [phone] Encounter Details Date Type Department Care Team (Late st Contact Info) Description 07/25/2024 Lab Requisition [facility] - Main Lab [address] [facility] [place] [address] Mayo Donnelly MD [address] [place] [address] Encounter for other general examination Social History [...] reflex microscopic (07/24/2024 6:55 PM EST) Specific [place] Urine 1.025 1.003 - 1.030 LAB URINALYSIS - AUTOMATED METHOD 07/25/2024 1:24 PM [facility] LAB pH, Urine 5.5 5.0 - 8.0 pH LAB URINALYSIS - AUTOMATED METHOD 07/25/2024 1:24 PM [facility] LAB Leukocytes, Urine Moderate(A) Negative LAB URINALYSIS - AUTOMATED METHOD 07/25/2024 1:24 PM [facility] LAB Nitrite, Urine Positive(A) Negative LAB URINALYSIS - AUTOMATED METHOD 07/25/2024 1:24 PM [facility] LAB Protein, Urine >=300(A) <=Trace mg/dL LAB URINALYSIS - AUTOMATED METHOD 07/25/2024 1:24 PM [facility] LAB Glucose, Urine Negative Negative mg/dL LAB URINALYSIS - AUTOMATED METHOD 07/25/2024 1:24 PM [facility] LAB Ketones, Urine Trace(A) Negative mg/dL LAB URINALYSIS - AUTOMATED METHOD 07/25/2024 1:24 PM [facility] LAB Urobilinogen , Urine 1.0 0.2 - 1.0 mg/dL LAB URINALYSIS - AUTOMATED METHOD 07/25/2024 1:24 PM [facility] LAB Bilirubin, Urine Negative Negative LAB URINALYSIS - AUTOMATED METHOD 07/25/2024 1:24 PM [facility] LAB Blood, Urine Large(A) Negative LAB URINALYSIS - AUTOMATED METHOD 07/25/2024 1:24 PM [facility] LAB RBC, Urine >4,000(H) 0 - 4 /HPF LAB URINALYSIS - AUTOMATED METHOD 07/25/2024 1:24 PM [facility] LAB WBC, Urine 1,000.0(H) 0 - 4 /HPF LAB URINALYSIS - AUTOMATED METHOD 07/25/2024 1:24 PM [facility] LAB Squamous Epithelial, Urine >100(H) 0 - 60 /LPF LAB URINALYSIS - AUTOMATED METHOD 07/25/2024 1:24 PM [facility] LAB Bacteria, Urine Many(A) Negative /HPF LAB URINALYSIS - AUTOMATED METHOD 07/25/2024 1:24 PM [facility] LAB Hyaline Casts, Urine 0.00 0 - 3 /LPF LAB URINALYSIS - AUTOMATED METHOD 07/25/2024 1:24 PM [facility] Urine Urine specimen obtained by clean catch procedure / Unknown Non-blood Collection / Unknown 07/24/2024 6:55 PM EST 07/25/2024 10:05 AM EST us Mayo Donnelly MD LAB URINE ORDERABLES Final Res ult Performing Organization Address City/[facility]/ZIP Co de Phone Number [facility] [address] [place] [address], [place] [phone] * Ceron urine culture tube (07/24/2024 6:55 PM EST) Extra Tube Hold for add-ons. 07/25/2024 12:01 PM [facility] Comment:Auto resulted. Urine Urine specimen obtained by clean catch procedure / Unknown Non-blood Collection / Unknown 07/24/2024 6:55 PM EST 07/25/2024 10:05 AM EST us Mayo Donnelly MD LAB URINE ORDERABLES Final Res ult Performing Organization Address City/[facility]/ZIP Co de Phone Number [facility] [address] [place] [address], [place] [phone] documented in this encounter Visit Diagnoses Diagnosis Encounter for other general examination documented in this encounter Care Teams Director Of Special Events Relationship Specialty Start Date End Date Mayo Donnelly MD [address] [place] [address] PCP - General Internal Medicine 11/06/24 documented as of this encounter
--- OUTSIDE RECORDS SUMMARY | 2024-11-20 10:13 | XMS_ITS | Encounter Summary ---
Author Organization [facility] Address [address] [place] [address] Care Team Providers Care Service Tech/Welder Name Role Phone Meghan Hicks MD Primary Care Provider UnaBeatrice Puente MD Unavailable [facility], [facility] Primary Care Provider Unavailabl Meghan Pereira MD Primary Care Provider Unava Andree Nicholas MD Primary Care Provider Unavaila ble Reason for Referral * Non KATERYNA (Routine) - Authorized/Booked Specialty Diagnoses / Procedures Referred By Contac t Referred To Contact Pulmonology Procedures REFERRAL TO PULMONOLOGY Meghan Hicks MD [address] [place] [address] Pulmo/[place] [address] [address] Referral ID Status Reason Start Date Expiration Date V isits Requested Visits Authorized [id number] Authorized/B ooked 05/31/2018 05/31/2019 12 12 Encounter Details Date Type Department Care Team Description 05/29/2018 Pt. Non Urgent Medic al Question Medicine/Pediatrics - [address] [phone] Meghan Hicks MD Social History Tobacco Use [...] of this encounter Progress Notes * Arlin HooperPBillN. - 05/30/2018 9:03 AM ESTFrom: Francine Pope To: Meghan Hicks MD Sent: 05/29/2018 10:12 AM EST Subject: Up coming patrick I need to schedule 2app one with dr hicks in aug the other dr hicks wants me to see respiratory for aircraft manager ck up any time after Jul 12, 2018 documented in this encounter Plan of Treatment Not on file documented as of this encounter Visit Diagnoses Not on filedocumented in this encounter Care Teams Service Tech/Welder Relationship Specialty Start Date End Date Meghan Hicks MD PCP - General Internal Medicine 04/08/12 01/15/22 [facility], [facility] PCP - General Internal Medicine 01/16/22 03/05/22 Meghan Hicks MD PCP - General Internal Medicine 03/06/22 03/18/22 Andree Gonzalez MD PCP - General Internal Medicine 03/19/22 Beatrice Holloway MD Specialist Cardiology 07/31/21 documented as of this encounter
--- OUTSIDE RECORDS SUMMARY | 2024-11-20 10:13 | XMS_ITS | Encounter Summary ---
Author Organization [facility] Address [address] [place] [address] Care Team Providers Care Doughnut Maker Name Role Phone Meghan Hicks MD Primary Care Provider Beatrice Garvey MD Unavailable [facility], Pcp Primary Care Provider Unavailabl e Meghan Hicks MD Primary Care Provider Andree Stallworth MD Primary Care Provider Unavailnathaly barcenas Encounter Details Date Type Department Care Team Description 03/27/2014 Strategic Planner Report Medical Records [address] [place] [address] Ashok Forbes MD Social History Tobacco Use [...] on filedocumented in this encounter Care Teams Doughnut Maker Relationship Specialty Start Date End Date Meghan Hicks MD PCP - General Internal Medicine 04/08/12 01/15/22 [facility], Pcp PCP - General Internal Medicine 01/16/22 03/05/22 Meghan Hicks MD PCP - General Internal Medicine 03/06/22 03/18/22 Andree Gonzalez MD PCP - General Internal Medicine 03/19/22 Beatrice Holloway MD Specialist Cardiology 07/31/21 documented as of this encounter
--- OUTSIDE RECORDS SUMMARY | 2024-11-20 10:13 | XMS_ITS | Encounter Summary ---
Author Organization [facility] Address [address] [place] [address] Care Team Providers Care Artificial Flowers Dyer Name Role Phone Meghan Hicks MD Primary Care Provider Beatrice Garvey MD Unavailable [facility], Pcp Primary Care Provider Unavailabl e Meghan Hicks MD Primary Care Provider Unava Andree Nicholas MD Primary Care Provider Unavailnathaly barcenas Encounter Details Date Type Department Care Team Description 01/19/2018 Hospital Housekeeper Report Medical Records [address] [place] [address] Kyle Barroso MD Social History Tobacco Use [...] on filedocumented in this encounter Care Teams Artificial Flowers Dyer Relationship Specialty Start Date End Date Meghan Hicks MD PCP - General Internal Medicine 04/08/12 01/15/22 [facility], Pcp PCP - General Internal Medicine 01/16/22 03/05/22 Meghan Hicks MD PCP - General Internal Medicine 03/06/22 03/18/22 Andree Gonzalez MD PCP - General Internal Medicine 03/19/22 Beatrice Holloway MD Specialist Cardiology 07/31/21 documented as of this encounter
--- OUTSIDE RECORDS SUMMARY | 2024-11-20 10:13 | XMS_ITS | Encounter Summary ---
Author Organization [facility] Address [address] [place] [address] Care Team Providers Care Rail Car Unloader Name Role Phone Meghan Hicks MD Primary Care Provider Beatrice Garvey MD Unavailable [facility], [facility] Primary Care Provider Unavailabl e Meghan Hicks MD Primary Care Provider Andree Stallworth MD Primary Care Provider Unavaila ble Encounter Details Date Type Department Care Team Description 07/17/2014 SCAN Medical Records [address] [place] [id number] Abstract, Provider Social History Tobacco Use Types [...] Name Priority Date/Time Associated Diagnosis Comments OUTSIDE EYE EXAM Routine 05/14/2014 documented in this encounter Results * OUTSIDE EYE EXAM (05/14/2014) Provider Abstract PROCEDURES documented in this encounter Visit Diagnoses Not on filedocumented in this encounter Care Teams Rail Car Unloader Relationship Specialty Start Date End Date Meghan Hicks MD PCP - General Internal Medicine 04/08/12 01/15/22 [facility] PCP - General Internal Medicine 01/16/22 03/05/22 Meghan Hicks MD PCP - General Internal Medicine 03/06/22 03/18/22 Andree Gonzalez MD PCP - General Internal Medicine 03/19/22 Beatrice Holloway MD Specialist Cardiology 07/31/21 documented as of this encounter
--- OUTSIDE RECORDS SUMMARY | 2024-11-20 10:13 | XMS_ITS | Encounter Summary ---
Author Organization [facility] Address [address] [place] [address] Care Team Providers Care Patcher Wood Welder Name Role Phone Meghan Hicks MD Primary Care Provider Beatrice Garvey MD Unavailable [facility], Pcp Primary Care Provider Unavailabl e Meghan Hicks MD Primary Care Provider Andree Stallworth MD Primary Care Provider Unavaila narinder Encounter Details Date Type Department Care Team Description 02/13/2021 Product Developer Report Medical Records [address] [place] [id number] Gastroenterology, [facility] Social History Tobacco Use Types Packs/Day Years [...] on filedocumented in this encounter Care Teams Patcher Wood Welder Relationship Specialty Start Date End Date Meghan [...]
--- OUTSIDE RECORDS SUMMARY | 2024-11-20 10:13 | XMS_ITS | Encounter Summary ---
Author Organization [facility] Address [address] [place] [address] Care Team Providers Care Cream Buyer Name Role Phone Meghan Hicks MD Primary Care Provider Beatrice Garvey MD Unavailable [facility], [facility] Primary Care Provider Unavailabl e Meghan Hicks MD Primary Care Provider UnaAndree Zapata MD Primary Care Provider Unavaila ble Reason for Visit * Reason Onset Date Comments Faxed Refill 05/27/2021 Encounter Details Date Type Department Care Team Description 05/27/2021 Refill Medicine/Pediatrics [address] [phone] Meghan Hicks MD Faxed Refill Social History Tobacco Use Types Packs/Day Years [...] on filedocumented in this encounter Care Teams Cream Buyer Relationship Specialty Start Date End Date Meghan Hicks MD PCP - General Internal Medicine 04/08/12 01/15/22 [facility], Pcp PCP - General Internal Medicine 01/16/22 03/05/22 Meghan Hicks MD PCP - General Internal Medicine 03/06/22 03/18/22 Andree Gonzalez MD PCP - General Internal Medicine 03/19/22 Baetrice Holloway MD Specialist Cardiology 07/31/21 documented as of this encounter
--- OUTSIDE RECORDS SUMMARY | 2024-11-20 10:13 | XMS_ITS | Encounter Summary ---
Author Organization [facility] Address [address] [place] [address] Care Team Providers Care Health Insurance Specialist Name Role Phone Meghan Hicks MD Primary Care Provider Beatrice Garvey MD Unavailable [facility], Pcp Primary Care Provider Unavailabl e Meghan Hicks MD Primary Care Provider Andree Stallworth MD Primary Care Provider Unavaila narinder Encounter Details Date Type Department Care Team Description 01/23/2021 Release of Information Medical Records [address] [place] [id number] [place] [address] Social History Tobacco Use Types Packs/Day Years [...] on filedocumented in this encounter Care Teams Health Insurance Specialist Relationship Specialty Start Date End Date [...]
--- OUTSIDE RECORDS SUMMARY | 2024-11-20 10:13 | XMS_ITS | Encounter Summary ---
Author Organization [facility] Address [address] [place] [address] Care Team Providers Care Junior Graphic Designer Name Role Phone Mayo Donnelly MD Primary Care Provider [phone] Encounter Details Date Type Department Care Team ([facility] st Contact Info) Description 07/16/2024 Lab Requisition [facility] - Main Lab [address] [facility] / ?.?? [place] [address] Mayo Donnelly MD [address] [place] [phone] Encounter for other general examination Social History [...] mg/dL LAB CHEMISTRY METHOD 07/16/2024 10:49 AM [facility] Blood Venous blood specimen / Unknown Venipuncture / Unknown 07/16/2024 5:30 AM EST 07/16/2024 9:10 AM EST us Mayo Donnelly MD LAB BLOOD ORDERABLES Final Res ult [facility] [address] [place] [address], [place] [phone] * (ABNORMAL) CBC auto differential (07/16/2024 5:30 AM EST) [facility] WBC 5.8 4.8 - 10.8 K/mcL LAB HEMETOLOGY METHOD 07/16/2024 10:35 AM [facility] RBC 3.80 3.80 - 4.80 M/mcL LAB HEMETOLOGY METHOD 07/16/2024 10:35 AM [facility] Hemoglobin 9.2(L) 11.5 - 16.0 g/dL LAB HEMETOLOGY METHOD 07/16/2024 10:35 AM [facility] Hematocrit 30.8(L) 35.0 - 47.0 % LAB HEMETOLOGY METHOD 07/16/2024 10:35 AM [facility] MCV 80.8 79.0 - 98.0 FL LAB HEMETOLOGY METHOD 07/16/2024 10:35 AM [facility] MCH 24.1(L) 27.0 - 32.0 pcg LAB HEMETOLOGY METHOD 07/16/2024 10:35 AM [facility] MCHC 29.9(L) 32.0 - 37.0 g/dL LAB HEMETOLOGY METHOD 07/16/2024 10:35 AM [facility] RDW 14.9 11.0 - 15.0 % LAB HEMETOLOGY METHOD 07/16/2024 10:35 AM [facility] Platelets 247 130 - 400 K/mcL LAB HEMETOLOGY METHOD 07/16/2024 10:35 AM [facility] MPV 10.8 7.0 - 11.0 FL LAB HEMETOLOGY METHOD 07/16/2024 10:35 AM [facility] NRBC 0.0 <1.0 % LAB HEMETOLOGY METHOD 07/16/2024 10:35 AM [facility] NRBC Absolute 0.00 <0.10 K/mcL LAB HEMETOLOGY METHOD 07/16/2024 10:35 AM [facility] Neutrophils Relative 69.6 % LAB HEMETOLOGY METHOD 07/16/2024 10:35 AM [facility] Lymphocytes Relative 16.7 % LAB HEMETOLOGY METHOD 07/16/2024 10:35 AM [facility] Monocytes Relative 10.1 % LAB HEMETOLOGY METHOD 07/16/2024 10:35 AM [facility] Eosinophils Relative 3.1 % LAB HEMETOLOGY METHOD 07/16/2024 10:35 AM [facility] Basophils Relative 0.2 % LAB HEMETOLOGY METHOD 07/16/2024 10:35 AM [facility] Immature Granulocytes Relative 0.3 % LAB HEMETOLOGY METHOD 07/16/2024 10:35 AM [facility] Neutrophils Absolute 4.01 1.50 - 7.00 K/mcL LAB HEMETOLOGY METHOD 07/16/2024 10:35 AM [facility] Lymphocytes Absolute 0.96(L) 1.00 - 5.00 K/mcL LAB HEMETOLOGY METHOD 07/16/2024 10:35 AM EST [facility] Monocytes Absolute 0.58 0.20 - 1.00 K/[facility] LAB HEMETOLOGY METHOD 07/16/2024 10:35 AM EST [facility] Eosinophils Absolute 0.18 0.00 - 0.50 K/[facility] LAB HEMETOLOGY METHOD 07/16/2024 10:35 AM EST [facility] Basophils Absolute 0.01 0.00 - 0.20 K/[facility] LAB HEMETOLOGY METHOD 07/16/2024 10:35 AM [facility] Immature Granulocytes Absolute 0.02 0.00 - 0.03 K/[facility] LAB HEMETOLOGY METHOD 07/16/2024 10:35 AM [facility] Blood Venous blood specimen / Unknown Venipuncture / Unknown 07/16/2024 5:30 AM EST 07/16/2024 9:10 AM EST us Mayo Donnelly MD LAB BLOOD ORDERABLES Final Res ult [facility] [address] [place] [address], * (ABNORMAL) Comprehensive metabolic panel (07/16/2024 5:30 AM EST) Sodium 133 133 - 145 mmol/L LAB CHEMISTRY METHOD 07/16/2024 10:49 AM [facility] Potassium 4.6 3.5 - 5.5 mmol/L LAB CHEMISTRY METHOD 07/16/2024 10:49 AM [facility] Chloride 103 96 - 110 mmol/L LAB CHEMISTRY METHOD 07/16/2024 10:49 AM [facility] CO2 24 21 - 32 mmol/L LAB CHEMISTRY METHOD 07/16/2024 10:49 AM [facility] Anion Gap 6 3 - 11 LAB CHEMISTRY METHOD 07/16/2024 10:49 AM [facility] Glucose 125(H) 70 - 100 mg/dL LAB CHEMISTRY METHOD 07/16/2024 10:49 AM [facility] BUN 33(H) 5 - 25 mg/dL LAB CHEMISTRY METHOD 07/16/2024 10:49 AM [facility] Creatinine 1.13(H) 0.50 - 1.10 mg/dL LAB CHEMISTRY METHOD 07/16/2024 10:49 AM [facility] eGFR 51(L) >=60 mL/min/1. 73m2 LAB CHEMISTRY METHOD 07/16/2024 10:49 AM [facility] Comment:Calculation based on the??Chronic Kidney Disease Epidemiology Collaboration (CKD-EPI) equation refit??without adjustment for race. BUN/Creatinine Ratio 29.2 LAB CHEMISTRY METHOD 07/16/2024 10:49 AM [facility] Calcium 9.0 8.5 - 10.5 mg/dL LAB CHEMISTRY METHOD 07/16/2024 10:49 AM [facility] AST (SGOT) 18 10 - 42 unit/L LAB CHEMISTRY METHOD 07/16/2024 10:49 AM [facility] ALT (SGPT) 8(L) 10 - 60 unit/L LAB CHEMISTRY METHOD 07/16/2024 10:49 AM [facility] Alkaline Phosphatase 61 42 - 121 unit/L LAB CHEMISTRY METHOD 07/16/2024 10:49 AM [facility] Total Protein 6.3 6.0 - 8.0 g/dL LAB CHEMISTRY METHOD 07/16/2024 10:49 AM [facility] Albumin 3.4 3.2 - 5.0 g/dL LAB CHEMISTRY METHOD 07/16/2024 10:49 AM [facility] Total Bilirubin 0.5 0.0 - 1.4 mg/dL LAB CHEMISTRY METHOD 07/16/2024 10:49 AM [facility] Blood Venous blood specimen / Unknown Venipuncture / Unknown 07/16/2024 5:30 AM EST 07/16/2024 9:10 AM EST Mayo Donnelly MD LAB BLOOD ORDERABLES Final Res ult [facility] [address] [place] [address], documented in this encounter Visit Diagnoses Diagnosis Encounter for other general examination documented in this encounter Care Teams Junior Graphic Designer Relationship Specialty Start Date End Date Mayo Donnelly MD [address] [place] [id number] PCP - General Internal Medicine 11/06/24 documented as of this encounter
--- OUTSIDE RECORDS SUMMARY | 2024-11-20 10:13 | XMS_ITS | Encounter Summary ---
Author Organization [facility] Address [address] [place] [address] Care Team Providers Care Meter Maker Name Role Phone Meghan Hicks MD Primary Care Provider Beatrice Garvey MD Unavailable [facility], Pcp Primary Care Provider UnavailMeghan Jones MD Primary Care Provider Andree Stallworth MD Primary Care Provider Unavailnathaly barcenas Encounter Details Date Type Department Care Team Description 10/26/2013 Pt. Referral Request [address] [address] Md Mariela Social History Tobacco Use Types Packs/Day Years [...] on filedocumented in this encounter Care Teams Meter Maker Relationship Specialty Start Date End Date [...]
--- OUTSIDE RECORDS SUMMARY | 2024-11-20 10:13 | XMS_ITS | Encounter Summary ---
Author Organization [facility] Address [address] [place] [address] Care Team Providers Care Retaining Room Cutter Name Role Phone Meghan Hicks MD Primary Care Provider Beatrice Garvey MD Unavailable [facility]cp Primary Care Provider UnavailMeghan Jones MD Primary Care Provider Andree Stallworth MD Primary Care Provider Unavailnathaly barcenas Encounter Details Date Type Department Care Team Description 08/07/2021 SCAN Medical Records [address] [place] [id number] Abstract, Provider Social History Tobacco Use Types [...] on filedocumented in this encounter Care Teams Retaining Room Cutter Relationship Specialty Start Date End Date [...]
--- OUTSIDE RECORDS SUMMARY | 2024-11-20 10:13 | XMS_ITS | Encounter Summary ---
Author Organization [facility] Address [address] [place] [address] Care Team Providers Care Paper Twister Name Role Phone Meghan Hicks MD Primary Care Provider Beatrice Garvey MD Unavailable [facility], Pcp Primary Care Provider Unavailabl e Meghan Hicks MD Primary Care Provider Andree Stallworth MD Primary Care Provider Unavaila narinder Encounter Details Date Type Department Care Team Description 05/06/2021 Basket Bottom Machine Operator Report Medical Records [address] [place] [id number] [place] [address] Orthopedic, Surgeons Social History Tobacco Use Types Packs/Day Years [...] on filedocumented in this encounter Care Teams Paper Twister Relationship Specialty Start Date End Date Mehgan Hicks MD PCP - General Internal Medicine 04/08/12 01/15/22 [facility], Pcp PCP - General Internal Medicine 01/16/22 03/05/22 Meghan Hicks MD PCP - General Internal Medicine 03/06/22 03/18/22 Andree Gonzalez MD PCP - General Internal Medicine 03/19/22 Beatrice Holloway MD Specialist Cardiology 07/31/21 documented as of this encounter
--- OUTSIDE RECORDS SUMMARY | 2024-11-20 10:13 | XMS_ITS | Encounter Summary ---
Author Organization [facility] Address [address] [place] [address] Care Team Providers Care Trimmer Hand Name Role Phone Meghan Hicks MD Primary Care Provider Beatrice Garvey MD Unavailable [facility], Pcp Primary Care Provider Unavailabl e Meghan Hicks MD Primary Care Provider Andree Stallworth MD Primary Care Provider Unavailnathaly barcenas Encounter Details Date Type Department Care Team Description 02/11/2018 [facility] Medical Records [address] [place] [address] Social History Tobacco Use Types Packs/Day Years [...] on filedocumented in this encounter Care Teams Trimmer Hand Relationship Specialty Start Date End Date Meghan Hicks MD PCP - General Internal Medicine 04/08/12 01/15/22 [facility], Pcp PCP - General Internal Medicine 01/16/22 03/05/22 Meghan Hicks MD PCP - General Internal Medicine 03/06/22 03/18/22 Andree Gonzalez MD PCP - General Internal Medicine 03/19/22 Beatrice Holloway MD Specialist Cardiology 07/31/21 documented as of this encounter
--- OUTSIDE RECORDS SUMMARY | 2024-11-20 10:13 | XMS_ITS | Encounter Summary ---
Author Organization [facility] Address [address] [place] [address] Care Team Providers Care Nursing Technician Name Role Phone Meghan Hicks MD Primary Care Provider Beatrice Garvey MD Unavailable [facility] Primary Care Provider UnavailMeghan Jones MD Primary Care Provider Andree Stallworth MD Primary Care Provider Unavailnathaly barcenas Encounter Details Date Type Department Care Team Description 09/10/2021 Business Doc Medical Records [address] [place] [id number] Abstract, Provider Social History Tobacco Use Types [...] have Coronavirus / COVID-19? No / Unsure 09/11/2021 2:40 PM EST documented as of this encounter Plan of Treatment Not on file documented as of this encounter Visit Diagnoses Not on filedocumented in this encounter Care Teams Nursing Technician Relationship Specialty Start Date End Date Meghan Hicks MD PCP - General Internal Medicine 04/08/12 01/15/22 [facility] PCP - General Internal Medicine 01/16/22 03/05/22 Meghan Hicks MD PCP - General Internal Medicine 03/06/22 03/18/22 Andree Gonzalez MD PCP - General Internal Medicine 03/19/22 Beatrice Holloway MD Specialist Cardiology 07/31/21 documented as of this encounter
--- OUTSIDE RECORDS SUMMARY | 2024-11-20 10:13 | XMS_ITS | Encounter Summary ---
Author Organization [facility] Address [address] [place] [address] Care Team Providers Care Candy Catcher Name Role Phone Meghan Hicks MD Primary Care Provider Beatrice Garvey MD Unavailable [facility], Pcp Primary Care Provider Unavailabl e Meghan Hicks MD Primary Care Provider Andree Stallworth MD Primary Care Provider Unavaila narinder Encounter Details Date Type Department Care Team Description 05/12/2014 Beam Warper Report Medical Records [address] [place] [phone] Kenney Peraza MD Social History Tobacco Use [...] on filedocumented in this encounter Care Teams Candy Catcher Relationship Specialty Start Date End Date Meghan Hicks MD PCP - General Internal Medicine 04/08/12 01/15/22 [facility], Pcp PCP - General Internal Medicine 01/16/22 03/05/22 Meghan Hicks MD PCP - General Internal Medicine 03/06/22 03/18/22 Andree Gonzalez MD PCP - General Internal Medicine 03/19/22 Beatrice Holloway MD Specialist Cardiology 07/31/21 documented as of this encounter
--- OUTSIDE RECORDS SUMMARY | 2024-11-20 10:13 | XMS_ITS | Encounter Summary ---
Author Organization [facility] Address [address] [place] [address] Care Team Providers Care Agricultural Service Worker Name Role Phone Meghan Hicks MD Primary Care Provider Beatrice Garvey MD Unavailable [facility], Pcp Primary Care Provider Unavailabl e Meghan Hicks MD Primary Care Provider Andree Stallworth MD Primary Care Provider Unavailnathaly barcenas Encounter Details Date Type Department Care Team Description 01/26/2014 Telephone Clerk Report Medical Records [address] [place] [address] Ashok Forbes MD Social History Tobacco Use [...] filedocumented in this encounter Care Teams Agricultural Service Worker Relationship Specialty Start Date End Date Meghan Hicks MD PCP - General Internal Medicine 04/08/12 01/15/22 [facility], Pcp PCP - General Internal Medicine 01/16/22 03/05/22 Meghan Hicks MD PCP - General Internal Medicine 03/06/22 03/18/22 Andree Gonzalez MD PCP - General Internal Medicine 03/19/22 Beatrice Holloway MD Specialist Cardiology 07/31/21 documented as of this encounter
--- OUTSIDE RECORDS SUMMARY | 2024-11-20 10:13 | XMS_ITS | Encounter Summary ---
Author Organization [facility] Address [address] [place] [address] Care Team Providers Care Straddle Carrier Operator Name Role Phone Meghan Hicks MD Primary Care Provider Beatrice Garvey MD Unavailable [facility], [facility] Primary Care Provider UnavailMeghan Jones MD Primary Care Provider UnaAndree Zapata MD Primary Care Provider Unavaila narinder Encounter Details Date Type Department Care Team Description 03/12/2017 Telephone Medicine/Pediatrics - [address] [phone] Meghan Hicks MD Social History Tobacco Use [...] Telephone Encounter - Meghan Hicks MD - 03/12/2017 10:59 AM EDT Noted. Marciano Esquivel and forwarded to her. * Telephone Encounter - Hillary Hicks RN - 03/12/2017 9:48 AM EDT FYI Patient is complaining that tongue is swelling. Patient reports taking a/b as prescribed. Denies resp distress, denies hives or rash. Daughter who is a nurse with patient, reports that mom does not look like having allergic reaction, just continuation of symptoms that she saw Dr. Hicks for. Daughter reports that they were to call with status of symptoms on Wednesday or Wednesday. Daughter reports that symptoms are the same to little worse. Patient alert and verbal on phone, no difficulty with speechwhile on phone. Family reports that they are currently camping, able to come in for 1:30pm appt with [facility]. Appt booked. Advised ED if symptoms worsen, develops resp distress. * Telephone Encounter - Mitzi Marvin - 03/12/2017 9:[address] Hicks on 03/08 for ER f/u. [facility] gave her Minocycline and has been taking them having only two pills left but now feels as though tongue is swelling. Having trouble saying certain words because of it. Left side of neck slightly swollen. documented in this encounter Plan of Treatment Not on file documented as of this encounter Visit Diagnoses Not on filedocumented in this encounter Care Teams Straddle Carrier Operator Relationship Specialty Start Date End Date Meghan Hicks MD PCP - General Internal Medicine 04/08/12 01/15/22 [facility], Pcp PCP - General Internal Medicine 01/16/22 03/05/22 Meghan Hicks MD PCP - General Internal Medicine 03/06/22 03/18/22 Andree Gonzalez MD PCP - General Internal Medicine 03/19/22 Beatrice Holloway MD Specialist Cardiology 07/31/21 documented as of this encounter
[2024-11-20 11:19] LABS: Appearance Urine Cloudy; Color Urine Yellow; Glucose Urine UA Negative (Negative); Leukocyte Esterase Urine Moderate (2+) (Negative); Nitrite Urine Negative (Negative); PH 5.5 (5.0-9.0); UMIC TRIGGER UACC YES; Urine Blood Negative (Negative); Urine Ketones Trace mg/dL (Negative); Urine Protein 30 (1+) mg/dL (Neg-Trace)
[2024-11-20 11:30] LABS: Bacteria Urine 1+ (None Seen); Hyaline Casts Urine 0-2 /LPF (0-2); RBC Urine 0-2 /HPF (0-2); UACC Culture Trigger YES
== END 2024-11-20 09:52 | disposition home or self-care (01) ==
LOC: HO.WFDLDS 09:51
PROVIDERS: Visit Provider Internal Medicine
DX: Z13.89 Encounter for screening for other disorder (principal)
CPT/HCPCS: 81001; 87086

== ENCOUNTER 2025-01-22 10:16 | Outpatient (REF) | payer MEDICARE, SELFPAY ==
--- OUTSIDE RECORDS SUMMARY | 2025-01-22 11:01 | XMS_ITS | Encounter Summary ---
Author Organization [facility] Address [address] [place] [address] Care Team Providers Care Glass Cutting Machine Feeder Name Role Phone Mayo Donnelly MD Primary Care Provider [phone] Encounter Details Date Type Department Care Team (Late st Contact Info) Description 07/26/2024 Lab Requisition [facility] - Main Lab [address] [facility] [place] [address] Mayo Donnelly MD [address] [place] [phone] Encounter for other general examination Social History [...] coli(A) YARED 07/29/2024 8:22 AM EST [facility] Culture, Urine 10,000-49,000 CFU/mL Enterococcus faecalis(A) YARED 07/29/2024 8:22 AM EST [facility] Comment: The organism value for [...] MICROBIOLOGY - GENERAL ORD ERABLES Final Result [facility] [address] [place] [address], [place] [phone] * (ABNORMAL) Urinalysis with reflex microscopic and culture (07/25/2024 6:02 PM EST) Specific [place] Urine 1.025 1.003 - 1.030 LAB URINALYSIS - AUTOMATED METHOD 07/26/2024 12:32 PM [facility] pH, Urine 6.5 5.0 - 8.0 pH LAB URINALYSIS - AUTOMATED METHOD 07/26/2024 12:32 PM [facility] Leukocytes, Urine Small(A) Negative LAB URINALYSIS - AUTOMATED METHOD 07/26/2024 12:32 PM [facility] Nitrite, Urine Positive(A) Negative LAB URINALYSIS - AUTOMATED METHOD 07/26/2024 12:32 PM [facility] Protein, Urine >=300(A) <=Trace mg/dL LAB URINALYSIS - AUTOMATED METHOD 07/26/2024 12:32 PM [facility] Glucose, Urine Negative Negative mg/dL LAB URINALYSIS - AUTOMATED METHOD 07/26/2024 12:32 PM [facility] Ketones, Urine Negative Negative mg/dL LAB URINALYSIS - AUTOMATED METHOD 07/26/2024 12:32 PM [facility] Urobilinogen , Urine 0.2 0.2 - 1.0 mg/dL LAB URINALYSIS - AUTOMATED METHOD 07/26/2024 12:32 PM [facility] Bilirubin, Urine Negative Negative LAB URINALYSIS - AUTOMATED METHOD 07/26/2024 12:32 PM [facility] Blood, Urine Large(A) Negative LAB URINALYSIS - AUTOMATED METHOD 07/26/2024 12:32 PM [facility] RBC, Urine >200 /HPF 07/26/2024 12:32 PM [facility] WBC, Urine 15 /HPF 07/26/2024 12:32 PM [facility] Bacteria, Urine 2+(A) (none) /HPF 07/26/2024 12:32 PM [facility] Urine Urine specimen obtained by clean catch procedure / Unknown 07/25/2024 6:02 PM EST 07/26/2024 11:14 AM EST us Mayo Donnelly MD LAB URINE ORDERABLES Final Res ult Performing Organization Address City/[facility]/ZIP Co de Phone Number [facility] [address] [place] [address], [place] [phone] * Ceron urine culture tube (07/25/2024 6:02 PM EST) Extra Tube Hold for add-ons. 07/26/2024 1:01 PM EST [facility] Comment:Auto resulted. Urine Urine specimen obtained by clean catch procedure / Unknown 07/25/2024 6:02 PM EST 07/26/2024 11:14 AM EST us Mayo Donnelly MD LAB URINE ORDERABLES Final Res ult [facility] [address] [place] [address], [place] [phone] documented in this encounter Visit Diagnoses Diagnosis Encounter for other general examination documented in this encounter Care Teams Glass Cutting Machine Feeder Relationship Specialty Start Date End Date Mayo Donnelly MD [address] [place] [phone] PCP - General Internal Medicine 11/06/24 documented as of this encounter
--- OUTSIDE RECORDS SUMMARY | 2025-01-22 11:01 | XMS_ITS | Encounter Summary ---
Author Organization [facility] Address [address] [place] [address] Care Team Providers Care Silk Hanger Name Role Phone Andree Lindquist Primary Care Provider [phone] Encounter Details Date Type Department Care Team (Late st Contact Info) Description 07/22/2023 Orders Only [facility] Interventional Radiology [address] [place] [phone] Guerline Vaughn MD [address] [place] [address] Social History Tobacco Use Types Packs/Day Years [...] Care Team (Late st Contact Info) Description 06/13/2025 8:45 AM EST Follow-Up [facility] [address] [place] [phone] Coating Machine Feeder: Christen Dempsey MD [address] [place] [phone] documented as of this encounter Visit Diagnoses Not on filedocumented in this encounter Additional Health Concerns Infection Onset Date Last Indicated Resolved Time R/O Respiratory Virus Infection 10/28/2024 10/28/2024 6:11 AM EDT R/O Influenza 10/28/2024 10/28/2024 10/28/2024 6:1 1 AM EDT COVID-19 - Suspected infection 10/28/2024 10/28/2024 10/28/2024 6:11 AM EDT documented as of this encounter Care Teams Silk Hanger Relationship Specialty Start Date End Date KtAndree Pretty PCP - General Family Medicine 03/26/23 documented as of this encounter
--- OUTSIDE RECORDS SUMMARY | 2025-01-22 11:01 | XMS_ITS | Clinical Summary ---
Author Organization [employer] Address [address] [facility] [address] [place] [address] Care Team Providers Care Online Community Manager Name Role Phone Unavailable Primary Care Provider Unavailabl e Allergies Active Allergy Reactions Criticality Noted Date Comments Cefdinir Unknown 07/02/2022 Sulfa Antibiotics Unknown 07/02/2022 Trimethoprim Unknown 07/02/2022 Medications Umeclidinium [place] (INCRUSE ELLIPTA IN) Incruse Ellipta Ac tive [...] crush, chew, or split. Q6 prn Active amLODIPine (Norvasc) 2.5 MG tablet Take 2.5 mg by mouth. 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 from Last 3 Months Family History Medical History Relation Name Comments Macular degeneration Father Relation Name Status Comments Father Social History Tobacco Use Types Packs/Day Years Used Date Smoking Tobacco: Former Cigarettes 1996 Smokeless Tobacco: Never Tobacco Cessation:Counseling Given: Not Answered Alcohol Use Standard Drinks/Week Comments Never 0 (1 standard drink = 0.6 oz pur e alcohol) Comments Unknown Sex and Gender Information Value Date Recorded Sex Assigned at Female 08/04/2022 8:44 AM EST Legal Sex Female 5:35 PM EDT Gender Identity Female 08/04/2022 8:44 AM EST Sexual Orientation Straight 08/04/2022 8: 44 AM EST Last Filed Vital Signs Vital Sign Reading Time Taken Comments Blood Pressure 157/91 01/10/2025 2:54 PM EDT Pulse 89 01/10/2025 2:54 PM EDT Temperature 36.2 C (97.1 F) 08/17/2022 12:10 PM EST Respiratory Rate - - Oxygen Saturation - - Inhaled Oxygen Concentration - - Weight - - Height - - Body Mass Index - - Plan of Treatment Health Maintenance Due Date [...] Vaccine ( season) 2024 05/28/2021, 09/26/2020, 09/05/2020 Eye Exam 08/26/2024 08/26/2023, 08/12, 08/26/2023, Additional history exists Influenza Vaccine (#1) 2025 , 06/08/2022, 04/29/2020, Additional history exists Dental X-Ray: Bitewings 06/22/2025 06/21/20 24, 06/30/2023, 04/23/2021, Additional history exists Dental Oral Exam 07/14/2025 01/10/2025, 05/2024, 06/30/2023, Additional history exists Dental Prophylaxis 07/14/2025 01/10/2025, 0 12/30/2023, 06/30/2023, Additional history exists Tobacco Screening 01/10/2026 01/10/2025 Dental X-Ray: Full Mouth 06/22/2027 024, 06/30/2023, [...] Procedure Name Priority Date/Time Associated Diagnosis Comments CASE PRESENTATION, DETAILED AND EXTENSIVE TREATMENT PLANNING Routine 01/10/2025 3:00 PM EDT ORAL HYGIENE INSTRUCTIONS Routine 2024 3:00 PM EDT Full PROPHYLAXIS - ADULT Routine 025 3:00 PM EDT PERIODIC ORAL EVALUATION - ESTABLISHED PATIENT Routine 01/10/2025 3:00 PM EDT INTRAORAL - COMPLETE SERIES OF RADIOGRAPHIC IMAGES Routine 06/21/2024 3:00 PM EST from Last 3 Months or Most Recently Relevant to Health Maintenance Insurance MEDICARE [facility] MEDEX CARE DENTAL - HSN FULL (MEDICAID) * Guarantor: Francine Pope Account Type Relation to Patient Date of Phone Billing Address Personal/Family Self [address] [facility] [address] [place] [phone] Care Teams Online Community Manager Relationship Specialty Start Date End Date Dr. Andree Lindquist [facility] [place], [place] Primary Care Provider 08/17/22
[2025-01-22 15:50] LABS: Appearance Urine Turbid; Glucose Urine UA Negative (Negative); PH 6.0 (5.0-9.0); Specific Gravity - Urine 1.020 (1.005-1.025); UMIC TRIGGER UACC YES
[2025-01-22 16:04] LABS: UACC Culture Trigger YES
== END 2025-01-22 10:17 | disposition home or self-care (01) ==
LOC: HO.WFDLDS 10:16
PROVIDERS: Referring Provider Surgery; Visit Provider Internal Medicine
DX: N30.01 Acute cystitis with hematuria (principal)
CPT/HCPCS: 81001; 87086; 87088; 87186

== ENCOUNTER 2025-04-13 15:06 | Outpatient (REF) | payer MEDICARE, SELFPAY ==
[2025-04-13 18:49] LABS: MANUAL DIFF FLAG NO
[2025-04-13 19:01] LABS: Hematocrit 30.6 % (37.0-47.0); Hemoglobin 9.6 g/dl (12.0-16.0); Imm Gran Abs Auto 0.02 X10*3/uL (0.00-0.03); Imm Gran Pct Auto 0.3 % (0.0-0.4); Lymphocytes Absolute Auto 1.3 X10*3/uL (1.2-4.9); Mean Corpuscular HGB Conc 31.4 g/dl (31.0-35.0); Mean Corpuscular Hemoglobin 24.4 pg (27.0-33.0); Mean Corpuscular Volume 77.9 fL (80.0-98.0); NRBC Abs Auto 0.000 X10*3/uL (0.0-0.012); NRBC Pct Auto 0.0 /100WBC (0.0-0.2); Platelet Count 321 X10*3/uL (160-400); Red Blood Count 3.93 X10*6/uL (4.20-5.50); White Blood Count 7.5 X10*3/uL (4.8-10.8)
== END 2025-04-13 15:07 | disposition home or self-care (01) ==
LOC: HO.WFDLDS 15:06
PROVIDERS: PCP Internal Medicine; Visit Provider Internal Medicine
DX: Z09 Encounter for follow-up examination after completed treatment for conditions other than malignant neoplasm (principal); A41.9 Sepsis, unspecified organism; E11.42 Type 2 diabetes mellitus with diabetic polyneuropathy; R30.0 Dysuria; D64.9 Anemia, unspecified
CPT/HCPCS: 36415; 85025; 99212

== ENCOUNTER 2025-04-13 15:06 | Outpatient (AMB) | payer MEDICARE, SELFPAY ==
--- OUTSIDE RECORDS SUMMARY | 2025-04-09 09:30 | XMS_ITS | Encounter Summary ---
Author Organization [facility] Address [address] [place] [address] Care Team Providers Care Outreach Associate Name Role Phone KtAndree Pretty Primary Care Provider [phone] Encounter Details Date Type Department Care Team (Late st Contact Info) Description 04/09/2025 9:30 AM EDT Office Visit [facility] [address] [place] [address] Hand Endband Cutter: Christen Dempsey MD [address] [place] [phone] Gross hematuria (Primary Dx); Overactive bladder; Acute cystitis with hematuria Social History Tobacco Use Types Packs/Day Years Used Date Smoking Tobacco: Former Cigarettes 1 45 1 954 - 1998 Smokeless Tobacco: Never Alcohol Use Standard Drinks/Week Comments Not Currently 0 (1 standard drink = 0.6 oz pur e alcohol) [facility] Utilities Answer Date Recorded In the past 12 months has [employer], gas, oil, or water [email or web address] threatened to shut off services in your [...] PM EST documented as of this encounter Last Filed Vital Signs Vital Sign Reading Time Taken Comments Blood Pressure 139/67 04/09/2025 9:21 AM EDT Pulse 71 04/09/2025 9:21 AM EDT Temperature - - Respiratory Rate - - Oxygen Saturation - - Inhaled Oxygen Concentration - - Weight - - Height - - Body Mass Index - - documented in this encounter Patient Instructions * Patient Instructions* Christen Lopes MD - 04/09/2025 9:40 AM EDT NON-ANTIBIOTIC TREATMENTS FOR UTIS Urine acidification - typically with Vitamin C Increased fluid intake Cranberry Agreement that cranberry can eliminate typical ammonia odor Good source of vitamin C 36-72 mcg of PAC/day in divided doses Uqora and Ellura are good brands to buy over the counter Best to take cranberry 1 tablet 2-3 times a day as effect only lasts 8 hours Keep cranberry supplements in the dark to prevent breakdown of active ingredients Probiotcs Oral or intravaginal At least one billion CFU/capsule per day Need good bacteria to keep the bad bacteria in check Probiotics can produce H2O2, which prevents other bacterial invaders Probiotics do not decrease UTIs but can help prevent developing resistance to TMP-SMX Femdophilus is a good brand Florastor Select is good and has pre and probiotics Women's Raw probiotic / prebiotic D-mannose A simple sugar, found in fruits such as apples, blueberries and cranberries Attaches to E. coli, causing bacteria to stick together, rather than attaching to bladder lining 2000 mg D-mannose (dissolved in 6-7 ounces of water) daily showed significant reduction in recurrent UTIs after six months Take 500 mg in water every 2-3 hours for five days to treat UTI Urex/Hipprex/methenamine Hippurate Works better in acidic urine Methenamine is converted to formaldehyde in acidic urine One gram twice a day Side effects include nausea, vomiting, rash, dysuria, pruritic Mary's Apple Cider Vinegar Mix together: One tablespoon Chris + One tablespoon clove honey + 1 ?? cups hot water Drink ?? cup three times a day Prevention Increased fluid intake to reduce bacterial burden Hygiene such as wiping front to back, urination after intercourse Estrogens in post-menopausal women only Lifestyle changes Try to eliminate potential food allergens, including dairy, wheat (gluten), corn, preservatives, and food additives Eat antioxidant-rich foods, including fruits (such as blueberries, cherries, and tomatoes), and vegetables (such as squash and garrett peppers) Eat more high-fiber foods, including beans, oats, root vegetables (such as potatoes and yams), and psyllium seed Eat fewer red meats and more lean meats, cold-water fish, tofu (if no allergy to soy is present), or beans for protein Use healthy cooking oils, such as olive oil or coconut oil Reduce or eliminate trans fatty acids, found in commercially-baked goods, such as cookies, crackers, cakes, Tristanian fries, onion rings, donuts, processed foods, and margarine Avoid coffee and other stimulants, alcohol, and tobacco Drink 6 to 8 glasses of filtered water daily Exercise at least 30 minutes daily, 5 days a week documented in this encounter Progress Notes * Christen Lopes MD - 04/09/2025 9:40 AM EDT Cystoscopy Note Patient: Francine Pope : 1945 PCP: Andree Lindquist Date of Visit: 04/09/2025 CC: 79 y.o.female with history of UTI and severe detrusor overactivity History: Patient has a history of recurrent UTIs and gross hematuria in the past She underwent cystoscopy by Dr. Reis on 08/30/2020 that showed an ulcerative bladder lesion I took patient to the operating room on 08/17/2023 for bladder biopsy that showed chronic inflammation She also has a history of overactive bladder and has tried Myrbetriq and trospium We did Botox 100 units on 10/17/2024 which worked well but caused incomplete empty More recently, patient had a stroke and a PE and is been on blood thinners She has had intermittent hematuria, sometimes with clots She has severe urgency and urge incontinence with decreased warning time to void When she was in the hospital, she used the pure wick which worked well and they would like to use that at home Unfortunately, PureWick is not covered by insurance and can be quite cost More recently, patient had hematuria so is coming back for cystoscopy Last CT scan on 10/28/2024 that showed a thick-walled bladder with a left renal cyst Last urine culture I have access to was on 01/22/2025 which grew E. 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 albuterol use rare, well controlled Cataracts, bilateral 03/25/2015 s/p bilateral IOLs Delayed emergence from general anesthesia Diverticulitis s/p colectomy DVT (deep venous thrombosis) ([facility]) in the post op setting Hyperlipidemia 01/26/2011 Hypertension 02/16/2011 LVH (left ventricular hypertrophy) Moderate aortic stenosis 08/03/2023 s/p TAVR 07/11/24 c/b stroke with residual left sided weakness Parkinson disease ([facility]) PONV (postoperative nausea and vomiting) 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 Pulmonary nodules 10/28/2018 Restless legs syndrome 08/26/2020 Spinal stenosis 08/03/2023 Stroke ([facility]) after TAVR, with residual left sided weakness, eliquis switched to aspirin due to hematuria Type 2 diabetes mellitus ([facility]) A1C 6.9 (07/2024), BGs run 120-140s in the AM Past Surgical History: Procedure Laterality Date AORTIC VALVE SURGERY TAVR 07/11/24 at [facility] APPENDECTOMY BLADDER SUSPENSION CHOLECYSTECTOMY COLECTOMY MD COMBINED ANT/POST COLPORRHAPHY N/A History of Combined A-P Colporrhaphy (For Pelvic Relaxation MD CYSTOURETHROSCOPY INJ CHEMODENERVATION BLADDER N/A 11/23/2023 Procedure: CYSTOURETHROSCOPY WITH CHEMODENERVATION Botox 100 units; Surgeon: Christen Lopes MD; Location: [facility]; Service: Urology MD CYSTOURETHROSCOPY INJ CHEMODENERVATION BLADDER N/A 10/17/2024 Procedure: CYSTOURETHROSCOPY WITH CHEMODENERVATION Botox 100 units; WITH FULGERATION .; Surgeon: Christen Lopes MD; Location: [facility] [place]; Service: Urology MD CYSTOURETHROSCOPY,FULGUR 0.5-2 CM LESN N/A 08/17/2023 Procedure: CYSTOURETHROSCOPY WITH RESECTION OF BLADDER TUMOR, 0.5 TO 2.0 CM; Surgeon: Christen Lopes MD; Location: [facility] [place] [facility]; Service: Urology MD CYSTOURETHROSCOPY,URETER CATHETER Bilateral 08/17/2023 Procedure: CYSTOURETHROSCOPY WITH URETERAL CATHETERIZATION; Surgeon: Christen Lopes MD; Location: [facility] [place] [facility]; Service: Urology MD SUSPENSION OF VAGINA,ABD APPRCH N/A History of Vaginal Surgery Colpopexy Abdominal Approach MD VAGINAL HYSTERECTOMY,UTERUS 250 GMS/< N/A History of Vaginal Hysterectomy PROCEDURE - HISTORIC N/A History of Operation For Correction Of Urinary Incontinence PROCEDURE - HISTORIC N/A History of Vaginal Surgery WRIST SURGERY Social History Tobacco Use Smoking Status Former Current packs/day: 0.00 Average packs/day: 1 pack/day for 45.0 years (45.0 ttl pk-yrs) Types: Cigarettes Start date: 1953 Quit date: 1998 Years since quittin.7 Smokeless Tobacco Never Family History Problem Relation Age of Onset Heart disease Mother [place] Colon cancer Mother COPD Father Throat cancer Father Current Outpatient Medications Medication Sig Dispense Refill acetaminophen (TYLENOL) 325 mg tablet Take 650 mg by mouth 3 times a day. acidophilus-pectin, citrus 25 million cell -100 mg tablet Take 1 capsule by mouth after lunch. carbidopa-levodopa (SINEMET) 25-100 mg per tablet Take 2 tablets by mouth 3 times a day. coQ10, ubiquinol, 200 mg capsule Take 200 mg by mouth. dextromethorphan-guaifenesin (ROBITUSSIN DM) 20-200 mg/10 mL syrup Take 5 mL by mouth every 4 hoursas needed for cough. Estring 2 mg (7.5 mcg /24 hour) vaginal ring Apply 2 mg to the vagina every 3 months. fenofibrate (LOFIBRA) 54 mg tablet Take 54 mg by mouth once a day. glipiZIDE (GLUCOTROL) 5 mg tablet Take 2.5 mg by mouth once a day. LORazepam (ATIVAN) 0.5 mg tablet Take 0.5 tablets (0.25 mg total) by mouth nightly as needed for anxiety for up to 4 days. losartan (COZAAR) 25 mg tablet Take 1 tablet (25 mg total) by mouth once a day. Takes 50mg qAM and 25mg at 7pm if SBP>130 magnesium oxide (MAG-OX) 400 mg (241.3 mg mag) tablet Take 400 mg by mouth 2 times a day. methenamine (HIPREX) 1 gram tablet Take 1 tablet (1 g total) by mouth 2 times a day. Take with vitamin C 180 tablet 3 multivitamin (THERAGRAN) tablet Take 1 tablet by mouth once a day. Neurontin 300 mg capsule Take 300 mg by mouth 2 times a day. omega-3s/dha/epa/fish oil/D3 (VITAMIN-D + OMEGA-3 ORAL) once a week. saturdays pantoprazole DR (PROTONIX) 40 mg tablet 40 mg at bed time. senna (SENOKOT) 8.6 mg tablet Take 1 tablet (8.6 mg total) by mouth daily as needed for constipation. sertraline (ZOLOFT) 100 mg tablet Take 100 mg by mouth every morning. umeclidinium (INCRUSE ELLIPTA) 62.5 mcg/actuation blister with device Take 1 puff by mouth every morning. ursodioL (ACTIGALL) 300 mg capsule Take 2 capsules by mouth 2 times a day. Ventolin HFA 90 mcg/actuation inhaler Inhale 2 puffs by mouth every 6 hours as needed. No current facility-administered medications for this visit. Allergies Allergen Reactions Cefdinir Rash Tolerated ceftriaxone 10/2023 Sulfa (Sulfonamide Antibiotics) Rash Trimpex [Trimethoprim] Rash Review of Systems Constitutional: Negative. HENT: Negative. Eyes: Negative. Respiratory: Negative. Cardiovascular: Negative. Gastrointestinal: Negative. Endocrine: Negative. Musculoskeletal: Negative. Allergic/Immunologic: Negative. Neurological: Negative. PE: General - 79 y.o. female in NAD Vitals: 04/09/25 0921 BP: 139/67 Pulse: 71 Skin - intact, no lesions HEENT - AT/NC, EOMI, Moist mucous membranes Neck - supple, FROM Chest - no deformities noted Breathing easily and without use of accessory muscles Abdomen - soft/NT/ND No masses, hernia or lesions No guarding, rebound or peritoneal signs Liver and spleen not palpable Back - no CVAT - normal female external genitalia Moderate vaginal atrophy but no obvious masses Musculoskeletal - no clubbing, cyanosis or edema Normal alignment and slow mobility Urinalysis dip large blood, 100 protein, (-) glucose, (+) nitrite, mod LE, pH 5.5 Procedure: A 'Time Out' was performed in accordance with the [place] Protocol policy. Flexible cystoscopy after patient prepped and draped in standard fashion: Consent signed and briefing performed. 10 cc lidocaine gel instilled via urethra. Normal bladder urothelium with grade III trabeculations. Visibility somewhat limited because there is a lot of debris floating freely in the bladder Patient then had an uninhibited bladder contraction while we were doing cystoscopy which clear the debris and visibility then somewhat improved Bladder expands equally in all directions. Left and right ureteral orifice in normal anatomic location. No obvious tumors, stones or other lesions. Squamous metaplasia across trigone Normal appearing urethra, without stricture. Assessment: 1. Gross hematuria 2. Overactive bladder 3. Acute cystitis with hematuria Plan: Patient tolerated well Macrobid 100 mg orally x one given for prophylaxis I spent a total of 15 minutes on the date of encounter, which included: ?? Preparing to see the patient (e.g., review of test results) ?? Performing a medically appropriate exam and/or evaluation ?? Counseling and educating the patient/family/caregiver ?? Ordering medications, tests, procedures ?? Documenting clinical information in the health record ?? Documented time does not include time for procedures performed during this patient encounter This is a 79-year-old woman with recurrent UTIs, hematuria, incontinence Incontinence seems worse when she has an active infection and is better when she is on antibiotics Patient is already keeping up with good water intake and cranberry but continues to get infections Today's urine does have a lot of debris in it so I will send it for culture and sensitivity testing If patient has an infection, I will start her on appropriate antibiotics I am also considering putting her on a low-dose prophylactic dose of antibiotics given the chronic inflammation in her bladder I will see her back in 3 to 4 months and depending on how she is doing, other treatment options will be determined I would also recommend patient stay on timed voiding schedule and not wait till the last minute to void Patient and her daughter will look into [employer] and I told them that if insurance will cover, I would certainly be happy to coordinate with the paperwork Patient to call or follow-up anytime for any other questions, concerns, etc Christen Lopes MD CC: Andree Reis MD Note: Speech recognition wrecker operator software was used to dictate this document. An attempt at proofreading has been made though errors in wrecker operator may still be present. Please do not hesitateto call our office with any questions * Paulette Felder LPN - 04/09/2025 9:30 AM EDT Francine Pope was here for cystoscopy. Name and confirmed, consent obtained. The patient was then prepped for procedure including cleansing with betadine and administrating lidocaine. BP and HR stable. He tolerated procedure well without complication. Patient educated on symptoms to monitor for in upcoming days. documented in this encounter Plan of Treatment Upcoming Encounters Date Type Department Care Team (Late st Contact Info) Description 07/23/2025 3:00 PM EST Follow-Up [facility] [address] [place] [phone] Hand Endband Cutter: Christen Dempsey MD [address] [place] [phone] documented as of this encounter Procedures * Due to [place] state law, this organization might not be sharing negative HIV tests. Procedure Name Priority Date/Time Associated Diagnosis Comments POCT AUTOMATED URINALYSIS DIPSTICK Routine 04/09/2025 9:11 AM EDT documented in this encounter Results * Due to [place] state law, this organization might not be sharing negative HIV tests. * (ABNORMAL) Urine Culture, Routine (04/09/2025 2:21 PM EDT) Culture Results Updated 04/11/2025 10:23 PM EDT [facility] Culture Esvin thibodeauxi(A) 04/11/2025 10:23 PM EDT [facility] Comment:Greater than 100,000 CFU/mL of Hafnia alvei Urine Urine specimen collection, clean catch / Unknown Non-Blood Collection / Unknown 04/09/2025 2:21 PM EDT 04/09/2025 2:25 PM EDT Narrative [facility] - 04/11/2025 10:23 PM EDT [facility] Received Date: MICRO NUMBER: [id number] SPECIMEN QUALITY: Adequate SOURCE: URINE CLEAN CATCH STATUS: FINAL Organism Antibiotic Method Susceptibility Hafnia alvei Amikacin <=2: Susceptible Hafnia alvei Ampicillin >=32: Resistant Hafnia alvei Ampicillin + Sulbactam >=32: Resistant Hafnia alvei Cefazolin >=64: Resistant Comment: For uncomplicated UTI caused by E. coli, K. pneumoniae or P. mirabilis: Cefazolin is susceptible if YARED <32 mcg/mL and predicts susceptible to the oral agents cefaclor, cefdinir, cefpodoxime, cefprozil, cefuroxime, cephalexin and loracarbef. Hafnia alvei Ceftazidime >=64: Resistant Hafnia alvei Cefepime <=1: Susceptible Hafnia alvei Ceftriaxone 32: Resistant Hafnia alvei Ciprofloxacin <=0.25: Susceptible Hafnia alvei Ertapenem <=0.5: Susceptible Hafnia alvei Gentamicin <=1: Susceptible Hafnia alvei Meropenem <=0.25: Susceptible Hafnia alvei Nitrofurantoin <=16: Susceptible Hafnia alvei Piperacillin + Tazobactam >=128: Resistant Hafnia alvei Tobramycin <=1: Susceptible Hafnia alvei Trimethoprim + Sulfamethoxazole <=20: Susceptible Comment: Legend: S = Susceptible I = Intermediate R = Resistant NS = Not susceptible SDD = Susceptible Dose Dependent * = Not Tested NR = Not Reported NN = See Therapy Comments Christen Lopes MD LAB MICROBIOLOGY - GENERAL OR DERABLES Final Result [facility] [address] [facility] [address] [facility], [place] [address], [facility] [address] [facility] [address], [place] [address], * (ABNORMAL) POCT Automated Urinalysis Dipstick, interfaced (04/09/2025 9:11 AM EDT) Color, POCT Yellow Yellow, Light Yellow, Dark Yellow 04/09/2025 9:13 AM EDT [facility] Clarity, POCT Clear Clear 04/09/2025 9:13 AM EDT [facility] Glucose, POCT Negative Negative mg/dL 04/09/2025 9:13 AM EDT [facility] Bilirubin, POCT Negative Negative 04/09/2025 9:13 AM EDT [facility] Ketones, POCT Negative Negative mg/dL 04/09/2025 9:13 AM EDT [facility] Specific [place], POCT 1.020 1.005 - 1.030 04/09/2025 9:13 AM EDT [facility] Blood, POCT Large(A) Negative 04/09/2025 9:13 AM EDT [facility] pH, POCT 5.5 5.0 - 8.0 04/09/2025 9:13 AM EDT [facility] Protein, POCT 100(A) Negative mg/dL 04/09/2025 9:13 AM EDT [facility] Urobilinogen, POCT 0.2 0.2, 1.0 EU/dL 04/09/2025 9:13 AM EDT [facility] Nitrite, POCT Positive(A) Negative 04/09/2025 9:13 AM EDT [facility] Leukocyte Esterase, POCT Moderate(A) Negative 04/09/2025 9:13 AM EDT [facility] Urine 04/09/2025 9:11 AM EDT 04/09/2025 9:13 AM EDT us Christen Lopes MD LAB POCT ORDERABLES - DEVICE Final Result [facility] [address] [place] [address], documented in this encounter Visit Diagnoses Diagnosis Gross hematuria- Primary Overactive bladder Hypertonicity of bladder Acute cystitis with hematuria documented in this encounter Administered Medications Inactive Administered Medications - up to 3 most recent administrations Medication Order MAR Action Action Date Dose Rate Site lidocaine (XYLOCAINE) 2% (20 mg/mL) urojet jelly 10 mL 10 mL, urethral, Once, On Wed04/09/25 at 0845, 1 dose, Apply to urethra.Indications:Gross hematuria Given 04/09/2025 9:13 AM EDT 10 mL nitrofurantoin monohydrate/macrocrystals (MACROBID) 100 mg capsule 100 mg 100 mg, oral, Once, On Wed04/09/25 at 0845, 1 doseIndications:Gross hematuria Given 04/09/2025 9:13 AM EDT 100 mg documented in this encounter Care Teams Outreach Associate Relationship Specialty Start Date End Date SenAndree Ayoub PCP - General Family Medicine 03/26/23 documented as of this encounter
--- OUTSIDE RECORDS SUMMARY | 2025-04-13 15:10 | XMS_ITS | Clinical Summary ---
Author Organization [employer] Address [address] [facility] [address] [place] [address] Care Team Providers Care Regional Production Manager Name Role Phone Unavailable Primary Care Provider Unavailabl e Allergies Active Allergy Reactions Criticality Noted Date Comments Cefdinir Unknown 07/02/2022 Sulfa Antibiotics Unknown 07/02/2022 Trimethoprim Unknown 07/02/2022 Medications Umeclidinium [place] (INCRUSE ELLIPTA IN) Incruse Ellipta Ac tive [...] Problem Noted Date Diagnosed Date Bladder cancer ([facility]) 08/17/2023 Deep vein thrombosis (DVT) ([facility]) 08/03/2023 Arthritis 08/03/2023 Moderate aortic stenosis 08/03/2023 Biliary cirrhosis ([facility]) 07/02/2022 Hyperlipidemia 07/02/2022 Osteopenia 07/02/2022 Diastolic heart failure 07/02/2022 Low back pain 07/02/2022 DM w/o complication type II 07/02/2022 Mild nonproliferative diabet ic retinopathy of both eyes without macular edema associated with type 2 diabetes mellitus 07/02/2022 Cough variant asthma 07/02/2022 Centrilobular emphysema 10/28/2018 Parkinson disease ([facility]) 10/16/2015 Overview (08/26/2023): Melchionna Melchionna Diabetes mellitus type 2 with neurological manif estations 11/28/2012 Overview (08/26/2023): PMH of carpal tunnel PMH of carpal tunnel 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[facility]) 09/19/2012 Family History Medical History Relation Name Comments Macular degeneration Father Relation Name Status Comments Father Social History Tobacco Use Types Packs/Day Years Used Date Smoking Tobacco: Former Cigarettes 1 977 - 1996 Smokeless Tobacco: Never Tobacco Cessation:Counseling Given: [...] older (1 - 1-dose 75+ series) 10/19/2022 Eye Exam 08/26/2024 08/26/2023, 08/12, 08/26/2023, Additional history exists COVID-19 Vaccine ( season) 2025 05/28/2021, 09/26/2020, 09/05/2020 Influenza Vaccine (#1) 2025 , 06/08/2022, 04/29/2020, [...] Cancer Screening Discontinued FIT DNA/Cologuard Discontinued 10/06/2021 FOBT Discontinued 10/06/2021 CT Colonography Discontinued Colonoscopy Discontinued FIT Discontinued HIB Vaccines Aged Out No longer [...] Procedure Name Priority Date/Time Associated Diagnosis Comments Full PROPHYLAXIS - ADULT Routine 025 3:00 PM EDT PERIODIC ORAL EVALUATION - ESTABLISHED PATIENT Routine 01/10/2025 3:00 PM EDT INTRAORAL - COMPLETE SERIES OF RADIOGRAPHIC IMAGES Routine 06/21/2024 3:00 PM EST from Last 3 Months or Most Recently Relevant to Health Maintenance Insurance [place] [phone] [facility] MEDEX CARE DENTAL - HSN FULL (MEDICAID) # [address] [place] [address] Care Teams Regional Production Manager Relationship Specialty Start Date End Date Dr. Andree Lindquist [facility] [place], [place] Primary Care Provider 08/17/22
--- OUTSIDE RECORDS SUMMARY | 2025-04-13 15:10 | XMS_ITS | Encounter Summary ---
Author Organization [employer] Address [address] [place] [address] [address] [place] [address] Care Team Providers Care Retort Fireman Name Role Phone Unavailable Primary Care Provider [...] on filedocumented in this encounter Care Teams Retort Fireman Relationship Specialty Start Date End Date Dr. Meghan Hicks Primary Care Provider 08/17/[address] Andree Lindquist [facility] [place], [place] Primary Care Provider 08/17/22 documented as of this encounter
--- OUTSIDE RECORDS SUMMARY | 2025-04-13 15:10 | XMS_ITS | Encounter Summary ---
Author Organization [facility] Address [address] [place] [address] Care Team Providers Care Farm Truck Driver Name Role Phone Andree Lindquist Primary Care Provider [phone] Encounter Details Date Type Department Care Team (Late st Contact Info) Description 07/22/2023 Orders Only [facility] Interventional Radiology [address] [place] [phone] Guerline Vaughn MD [address] [place] [address] Social History Tobacco Use Types Packs/Day Years [...] Info) Description 07/23/2025 3:00 PM EST Follow-Up [facility] [address] [place] [id number] Visual Effects Artist: Christen Dempsey MD [address] [place] [phone] documented as of this encounter Visit Diagnoses Not on filedocumented in this encounter Additional Health Concerns Infection Onset Date Last Indicated Resolved Time R/O Respiratory Virus Infection 10/28/2024 10/28/2024 6:11 AM EDT R/O Influenza 10/28/2024 10/28/2024 10/28/2024 6:1 1 AM EDT COVID-19 - Suspected infection 10/28/2024 10/28/2024 10/28/2024 6:11 AM EDT documented as of this encounter Care Teams Farm Truck Driver Relationship Specialty Start Date End Date KtAndree Pretty PCP - General Family Medicine 03/26/23 documented as of this encounter
--- OUTSIDE RECORDS SUMMARY | 2025-04-13 15:10 | XMS_ITS | Encounter Summary ---
Author Organization [facility] Address [address] [place] [address] Care Team Providers Care Genetics Nurse Name Role Phone Mayo Donnelly MD Primary Care Provider [phone] Encounter Details Date Type Department Care Team (Late st Contact Info) Description 07/27/2024 Lab Requisition [facility] - Main Lab [address] [facility] [place] [address] Mayo Donnelly MD [address] [place] [address] Encounter for other general examination Social History [...] AM EST) WBC 6.5 4.8 - 10.8 K/[facility] LAB HEMETOLOGY METHOD 07/27/2024 11:45 AM [facility] RBC 3.80 3.80 - 4.80 M/mcL LAB HEMETOLOGY METHOD 07/27/2024 11:45 AM [facility] Hemoglobin 9.2(L) 11.5 - 16.0 g/dL LAB HEMETOLOGY METHOD 07/27/2024 11:45 AM [facility] Hematocrit 30.8(L) 35.0 - 47.0 % LAB HEMETOLOGY METHOD 07/27/2024 11:45 AM [facility] MCV 81.7 79.0 - 98.0 FL LAB HEMETOLOGY METHOD 07/27/2024 11:45 AM [facility] MCH 24.4(L) 27.0 - 32.0 pcg LAB HEMETOLOGY METHOD 07/27/2024 11:45 AM [facility] MCHC 29.9(L) 32.0 - 37.0 g/dL LAB HEMETOLOGY METHOD 07/27/2024 11:45 AM [facility] RDW 15.8(H) 11.0 - 15.0 % LAB HEMETOLOGY METHOD 07/27/2024 11:45 AM [facility] Platelets 318 130 - 400 K/mcL LAB HEMETOLOGY METHOD 07/27/2024 11:45 AM [facility] MPV 10.3 7.0 - 11.0 FL LAB HEMETOLOGY METHOD 07/27/2024 11:45 AM [facility] NRBC 0.0 <1.0 % LAB HEMETOLOGY METHOD 07/27/2024 11:45 AM [facility] NRBC Absolute 0.00 <0.10 K/mcL LAB HEMETOLOGY METHOD 07/27/2024 11:45 AM [facility] Blood Venous blood specimen / Unknown Venipuncture / Unknown 07/27/2024 6:45 AM EST 07/27/2024 10:56 AM EST us Mayo Donnelly MD LAB BLOOD ORDERABLES Final Res ult [facility] [address] [place] [address], [place] [phone] * (ABNORMAL) Comprehensive metabolic panel (07/27/2024 6:45 AM EST) Sodium 134 133 - 145 mmol/L LAB CHEMISTRY METHOD 07/27/2024 2:10 PM EST [facility] Potassium 5.2 3.5 - 5.5 mmol/L LAB CHEMISTRY METHOD 07/27/2024 2:10 PM [facility] Chloride 107 96 - 110 mmol/L LAB CHEMISTRY METHOD 07/27/2024 2:10 PM [facility] CO2 20(L) 21 - 32 mmol/L LAB CHEMISTRY METHOD 07/27/2024 2:10 PM [facility] Anion Gap 7 3 - 11 LAB CHEMISTRY METHOD 07/27/2024 2:10 PM [facility] Glucose 101(H) 70 - 100 mg/dL LAB CHEMISTRY METHOD 07/27/2024 2:10 PM [facility] BUN 43(H) 5 - 25 mg/dL LAB CHEMISTRY METHOD 07/27/2024 2:10 PM [facility] Creatinine 0.99 0.50 - 1.10 mg/dL LAB CHEMISTRY METHOD 07/27/2024 2:10 PM [facility] eGFR 59(L) >=60 mL/min/1. 73m2 LAB CHEMISTRY METHOD 07/27/2024 2:10 PM [facility] Comment:Calculation based on the Chronic Kidney Disease Epidemiology Collaboration (CKD-EPI) equation refit without adjustment for race. BUN/Creatinine Ratio 43.4 LAB CHEMISTRY METHOD 07/27/2024 2:10 PM EST [facility] Calcium 9.4 8.5 - 10.5 mg/dL LAB CHEMISTRY METHOD 07/27/2024 2:10 PM [facility] AST (SGOT) 23 10 - 42 unit/L LAB CHEMISTRY METHOD 07/27/2024 2:10 PM [facility] ALT (SGPT) 16 10 - 60 unit/L LAB CHEMISTRY METHOD 07/27/2024 2:10 PM [facility] Alkaline Phosphatase 65 42 - 121 unit/L LAB CHEMISTRY METHOD 07/27/2024 2:10 PM [facility] Total Protein 6.4 6.0 - 8.0 g/dL LAB CHEMISTRY METHOD 07/27/2024 2:10 PM [facility] Albumin 3.5 3.2 - 5.0 g/dL LAB CHEMISTRY METHOD 07/27/2024 2:10 PM [facility] Total Bilirubin 0.2 0.0 - 1.4 mg/dL LAB CHEMISTRY METHOD 07/27/2024 2:10 PM [facility] Blood Venous blood specimen / Unknown Venipuncture / Unknown 07/27/2024 6:45 AM EST 07/27/2024 10:56 AM EST us Mayo Donnelly MD LAB BLOOD ORDERABLES Final Res ult [facility] [address] [place] [address], documented in this encounter Visit Diagnoses Diagnosis Encounter for other general examination documented in this encounter Care Teams Genetics Nurse Relationship Specialty Start Date End Date Mayo Donnelly MD [address] [place] [phone] PCP - General Internal Medicine 11/06/24 documented as of this encounter
--- OUTSIDE RECORDS SUMMARY | 2025-04-13 15:10 | XMS_ITS | Encounter Summary ---
Author Organization [facility] Address [address] [place] [address] Care Team Providers Care Communications And Signals Supervisor Name Role Phone Mayo Donnelly MD Primary Care Provider [phone] Encounter Details Date Type Department Care Team (Late st Contact Info) Description 11/07/2024 Lab Requisition [facility] - Main Lab 299 [facility] [place] [address] Mayo Donnelly MD [address] [place] [address] Encounter for other general examination Social History [...] CBC auto differential (11/07/2024 6:56 AM EDT) [facility] WBC 9.2 4.8 - 10.8 K/mcL LAB HEMETOLOGY METHOD 11/07/2024 10:49 AM [facility] RBC 3.60(L) 3.80 - 4.80 M/mcL LAB HEMETOLOGY METHOD 11/07/2024 10:49 AM [facility] Hemoglobin 8.0(L) 11.5 - 16.0 g/dL LAB HEMETOLOGY METHOD 11/07/2024 10:49 AM [facility] Hematocrit 26.7(L) 35.0 - 47.0 % LAB HEMETOLOGY METHOD 11/07/2024 10:49 AM [facility] MCV 74.2(L) 79.0 - 98.0 FL LAB HEMETOLOGY METHOD 11/07/2024 10:49 AM [facility] MCH 22.2(L) 27.0 - 32.0 pcg LAB HEMETOLOGY METHOD 11/07/2024 10:49 AM [facility] MCHC 30.0(L) 32.0 - 37.0 g/dL LAB HEMETOLOGY METHOD 11/07/2024 10:49 AM [facility] RDW 19.9(H) 11.0 - 15.0 % LAB HEMETOLOGY METHOD 11/07/2024 10:49 AM [facility] Platelets 468(H) 130 - 400 K/mcL LAB HEMETOLOGY METHOD 11/07/2024 10:49 AM [facility] MPV 9.4 7.0 - 11.0 FL LAB HEMETOLOGY METHOD 11/07/2024 10:49 AM [facility] NRBC 0.0 <1.0 % LAB HEMETOLOGY METHOD 11/07/2024 10:49 AM [facility] NRBC Absolute 0.00 <0.10 K/mcL LAB HEMETOLOGY METHOD 11/07/2024 10:49 AM [facility] Neutrophils Relative 73.4 % LAB HEMETOLOGY METHOD 11/07/2024 10:49 AM [facility] Lymphocytes Relative 14.6 % LAB HEMETOLOGY METHOD 11/07/2024 10:49 AM [facility] Monocytes Relative 8.4 % LAB HEMETOLOGY METHOD 11/07/2024 10:49 AM [facility] Eosinophils Relative 2.6 % LAB HEMETOLOGY METHOD 11/07/2024 10:49 AM [facility] Basophils Relative 0.2 % LAB HEMETOLOGY METHOD 11/07/2024 10:49 AM [facility] Immature Granulocytes Relative 0.8 % LAB HEMETOLOGY METHOD 11/07/2024 10:49 AM [facility] Neutrophils Absolute 6.72 1.50 - 7.00 K/mcL LAB HEMETOLOGY METHOD 11/07/2024 10:49 AM [facility] Lymphocytes Absolute 1.34 1.00 - 5.00 K/mcL LAB HEMETOLOGY METHOD 11/07/2024 10:49 AM [facility] Monocytes Absolute 0.77 0.20 - 1.00 K/mcL LAB HEMETOLOGY METHOD 11/07/2024 10:49 AM [facility] Eosinophils Absolute 0.24 0.00 - 0.50 K/mcL LAB HEMETOLOGY METHOD 11/07/2024 10:49 AM [facility] Basophils Absolute 0.02 0.00 - 0.20 K/mcL LAB HEMETOLOGY METHOD 11/07/2024 10:49 AM [facility] Immature Granulocytes Absolute 0.07(H) 0.00 - 0.03 K/mcL LAB HEMETOLOGY METHOD 11/07/2024 10:49 AM EDT [facility] Blood Venous blood specimen / Unknown Venipuncture / Unknown 11/07/2024 6:56 AM EDT 11/07/2024 9:48 AM EDT us Mayo Donnelly MD LAB BLOOD ORDERABLES Final Res ult [facility] [address] [place] [address], * Basic metabolic panel (11/07/2024 6:56 AM EDT) Sodium 141 133 - 145 mmol/L LAB CHEMISTRY METHOD 11/07/2024 12:18 PM [facility] Potassium 4.7 3.5 - 5.5 mmol/L LAB CHEMISTRY METHOD 11/07/2024 12:18 PM [facility] Chloride 105 96 - 110 mmol/L LAB CHEMISTRY METHOD 11/07/2024 12:18 PM [facility] CO2 26 21 - 32 mmol/L LAB CHEMISTRY METHOD 11/07/2024 12:18 PM [facility] Anion Gap 10 3 - 11 LAB CHEMISTRY METHOD 11/07/2024 12:18 PM [facility] Glucose 98 70 - 100 mg/dL LAB CHEMISTRY METHOD 11/07/2024 12:18 PM [facility] BUN 23 5 - 25 mg/dL LAB CHEMISTRY METHOD 11/07/2024 12:18 PM [facility] Creatinine 0.90 0.50 - 1.10 mg/dL LAB CHEMISTRY METHOD 11/07/2024 12:18 PM [facility] eGFR 66 >=60 mL/min/1. 73m2 LAB CHEMISTRY METHOD 11/07/2024 12:18 PM [facility] Comment:Calculation based on the Chronic Kidney Disease Epidemiology Collaboration (CKD-EPI) equation refit without adjustment for race. BUN/Creatinine Ratio 25.6 LAB CHEMISTRY METHOD 11/07/2024 12:18 PM EDT [facility] Calcium 9.2 8.5 - 10.5 mg/dL LAB CHEMISTRY METHOD 11/07/2024 12:18 PM EDT [facility] Blood Venous blood specimen / Unknown Venipuncture / Unknown 11/07/2024 6:56 AM EDT 11/07/2024 9:48 AM EDT us Mayo Donnelly MD LAB BLOOD ORDERABLES Final Res ult [facility] [address] [place] [address], documented in this encounter Visit Diagnoses Diagnosis Encounter for other general examination documented in this encounter Care Teams Communications And Signals Supervisor Relationship Specialty Start Date End Date Mayo Donnelly MD [address] [place] [address] PCP - General Internal Medicine 11/06/24 documented as of this encounter
--- OUTSIDE RECORDS SUMMARY | 2025-04-13 15:10 | XMS_ITS | Encounter Summary ---
Author Organization [facility] Address [address] [place] [address] Care Team Providers Care Dry Cleaner Apprentice Name Role Phone Mayo Donnelly MD Primary Care Provider [phone] Encounter Details Date Type Department Care Team (Late st Contact Info) Description 11/03/2024 Lab Requisition [facility] - Main Lab [address] [facility] [place] [address] Mayo Donnelly MD [address] [place] [address] Encounter for other general examination Social History [...] K/mcL LAB HEMETOLOGY METHOD 11/03/2024 11:19 AM [facility] RBC 3.60(L) 3.80 - 4.80 M/mcL LAB HEMETOLOGY METHOD 11/03/2024 11:19 AM [facility] Hemoglobin 8.0(L) 11.5 - 16.0 g/dL LAB HEMETOLOGY METHOD 11/03/2024 11:19 AM [facility] Hematocrit 26.2(L) 35.0 - 47.0 % LAB HEMETOLOGY METHOD 11/03/2024 11:19 AM [facility] MCV 72.6(L) 79.0 - 98.0 FL LAB HEMETOLOGY METHOD 11/03/2024 11:19 AM [facility] MCH 22.2(L) 27.0 - 32.0 pcg LAB HEMETOLOGY METHOD 11/03/2024 11:19 AM [facility] MCHC 30.5(L) 32.0 - 37.0 g/dL LAB HEMETOLOGY METHOD 11/03/2024 11:19 AM [facility] RDW 18.7(H) 11.0 - 15.0 % LAB HEMETOLOGY METHOD 11/03/2024 11:19 AM [facility] Platelets 463(H) 130 - 400 K/mcL LAB HEMETOLOGY METHOD 11/03/2024 11:19 AM [facility] MPV 9.5 7.0 - 11.0 FL LAB HEMETOLOGY METHOD 11/03/2024 11:19 AM [facility] NRBC 0.0 <1.0 % LAB HEMETOLOGY METHOD 11/03/2024 11:19 AM [facility] NRBC Absolute 0.00 <0.10 K/mcL LAB HEMETOLOGY METHOD 11/03/2024 11:19 AM [facility] Neutrophils Relative 74.1 % LAB HEMETOLOGY METHOD 11/03/2024 11:19 AM [facility] Lymphocytes Relative 10.4 % LAB HEMETOLOGY METHOD 11/03/2024 11:19 AM [facility] Monocytes Relative 7.6 % LAB HEMETOLOGY METHOD 11/03/2024 11:19 AM [facility] Eosinophils Relative 4.7 % LAB HEMETOLOGY METHOD 11/03/2024 11:19 AM [facility] Basophils Relative 0.3 % LAB HEMETOLOGY METHOD 11/03/2024 11:19 AM [facility] Immature Granulocytes Relative 2.9 % LAB HEMETOLOGY METHOD 11/03/2024 11:19 AM [facility] Neutrophils Absolute 8.76(H) 1.50 - 7.00 K/mcL LAB HEMETOLOGY METHOD 11/03/2024 11:19 AM [facility] Lymphocytes Absolute 1.23 1.00 - 5.00 K/mcL LAB HEMETOLOGY METHOD 11/03/2024 11:19 AM [facility] Monocytes Absolute 0.90 0.20 - 1.00 K/mcL LAB HEMETOLOGY METHOD 11/03/2024 11:19 AM [facility] Eosinophils Absolute 0.55(H) 0.00 - 0.50 K/mcL LAB HEMETOLOGY METHOD 11/03/2024 11:19 AM [facility] Basophils Absolute 0.03 0.00 - 0.20 K/mcL LAB HEMETOLOGY METHOD 11/03/2024 11:19 AM EDT [facility] Immature Granulocytes Absolute 0.34(H) 0.00 - 0.03 K/mcL LAB HEMETOLOGY METHOD 11/03/2024 11:19 AM EDT [facility] Blood Venous blood specimen / Unknown Venipuncture / Unknown 11/03/2024 7:06 AM EDT 11/03/2024 9:36 AM EDT Mayo Donnelly MD LAB BLOOD ORDERABLES Final Res ult Performing Organization Address [facility]/ZIP Co de Phone Number [facility] [address] [place] [address], [place] [phone] * (ABNORMAL) Magnesium (11/03/2024 7:06 AM EDT) Magnesium 1.5(L) 1.9 - 2.6 mg/dL LAB CHEMISTRY METHOD 11/03/2024 11:44 AM EDT [facility] Blood Venous blood specimen / Unknown Venipuncture / Unknown 11/03/2024 7:06 AM EDT 11/03/2024 9:36 AM EDT Mayo Donnelly MD LAB BLOOD ORDERABLES Final Res ult Performing Organization Address [facility]/ZIP Co de Phone Number [facility] [address] [place] [address], [place] [phone] * (ABNORMAL) Comprehensive metabolic panel (11/03/2024 7:06 AM EDT) Sodium 136 133 - 145 mmol/L LAB CHEMISTRY METHOD 11/03/2024 11:45 AM EDT [facility] Potassium 4.3 3.5 - 5.5 mmol/L LAB CHEMISTRY METHOD 11/03/2024 11:45 AM EDT [facility] Chloride 103 96 - [...] AM [facility] Comment:Calculation based on the Chronic Kidney Disease Epidemiology Collaboration (CKD-EPI) equation refit without adjustment for race. BUN/Creatinine Ratio 29.6 LAB [...] g/dL LAB CHEMISTRY METHOD 11/03/2024 11:45 AM [facility] Albumin 2.4(L) 3.2 - 5.0 g/dL LAB CHEMISTRY METHOD 11/03/2024 11:45 AM EDT [facility] Total Bilirubin 0.6 0.0 - 1.4 mg/dL LAB CHEMISTRY METHOD 11/03/2024 11:45 AM EDT [facility] Blood Venous blood specimen / Unknown Venipuncture / Unknown 11/03/2024 7:06 AM EDT 11/03/2024 9:36 AM EDT us Mayo Donnelly MD LAB BLOOD ORDERABLES Final Res ult [facility] [address] [place] [address], documented in this encounter Visit Diagnoses Diagnosis Encounter for other general examination documented in this encounter Care Teams Dry Cleaner Apprentice Relationship Specialty Start Date End Date Mayo Donnelly MD [address] [place] [phone] PCP - General Internal Medicine 11/06/24 documented as of this encounter
--- OUTSIDE RECORDS SUMMARY | 2025-04-13 15:10 | XMS_ITS | Encounter Summary ---
Author Organization [facility] Address [address] [place] [address] Care Team Providers Care River Expedition Guide Name Role Phone Mayo Donnelly MD Primary Care Provider [phone] Encounter Details Date Type Department Care Team (Late st Contact Info) Description 07/25/2024 Lab Requisition [facility] - Main Lab [address] [place] [address] Mayo Donnelly MD [address] [place] [address] Encounter for other general examination Social History [...] LAB CHEMISTRY METHOD 07/25/2024 11:01 AM EST [facility] Potassium [...] [facility] Comment:Calculation based on the Chronic Kidney Disease Epidemiology Collaboration (CKD-EPI) equation refit without adjustment for race. BUN/Creatinine Ratio 55.0 LAB CHEMISTRY METHOD 07/25/2024 11:01 AM [facility] Calcium 9.2 8.5 - 10.5 mg/dL LAB CHEMISTRY METHOD 07/25/2024 11:01 AM [facility] Blood Venous blood specimen / Unknown Venipuncture / Unknown 07/25/2024 4:31 AM EST 07/25/2024 9:59 AM EST us Mayo Donnelly MD LAB BLOOD ORDERABLES Final Res ult [facility] [address] [place] [address], documented in this encounter Visit Diagnoses Diagnosis Encounter for other general examination documented in this encounter Care Teams River Expedition Guide Relationship Specialty Start Date End Date Mayo Donnelly MD [address] [place] [phone] PCP - General Internal Medicine 11/06/24 documented as of this encounter
--- OUTSIDE RECORDS SUMMARY | 2025-04-13 15:10 | XMS_ITS | Clinical Summary ---
Author Organization [facility] Address [address] [facility] [address] [place] [address] Phone Care Team Providers Care Boiler Repairman Name Role Phone Meghan Hicks MD Primary Care Provider + Social History Tobacco Use Types Packs/Day Years Used Date Smoking Tobacco: Never Assessed Education Answer Date Recorded Are you interested in more education? Not on cherrie e 11/07/2022 Are you concerned about learning? Not on file 11/07/2022 No 11/07/2022 No 11/07/2022 Digital Access Answer Date Recorded No 12/06/2022 No 12/06/2022 No 12/06/2022 Reliable internet access at home? Not on file 12/06/2022 Device with a working camera? Not on file Comments Unknown Sex and Gender Information Value Date Recorded Sex Assigned at Not on file Legal Sex Female 6:51 PM EST Gender Identity Not on file Sexual Orientation Not on file Plan of Treatment Health Maintenance Due Date Last Done Comments DEPRESSION SCREENING 1959 SMOKING Hx and SMOKELESS TOBACCO SCREENING 10/19/1960 HEPATITIS C SCREENING 10/19/1965 ZOSTER VACCINES (2 of 3) 08/14/2011 06/19/2011 OSTEOPOROSIS SCREENING INITIAL (ONE-TIME) 10/19/2012 Adult Td,Tdap Booster 03/16/2022 03/16/2012, 007 RSV VACCINE (1 - 1-dose 75+ series) 10/19/2022 LIPID PANEL 12/29/2022 12/29/2017, 06/09/2017 INFLUENZA VACCINE (#1) 2025 , 04/26/2019, 04/27/2018, Additional history exists COVID-19 VACCINE (2024- season) 2025 09/26/2020 PNEUMOCOCCAL VACCINES (50+ years) Completed 08/05/2016, 12/31/2014, 03/27/2009 HEPATITIS A VACCINES Aged Out No long er eligible based on patient's age to complete this topic HIB VACCINES Aged Out No longer eligi ble based on patient's age to complete this topic MENINGOCOCCAL VACCINES (ACWY) Aged Out No longer eligible based on patient's age to complete this topic MENINGOCOCCAL VACCINES (B) Aged Out N o longer eligible based on patient's age to complete this topic Medical Devices Not on file Insurance [employer] POS PPO REPLACEMENT [employer] POS PPO REPLACEMENT MEDICARE POS PPO REPLACEMENT MEDICARE POS PPO REPLACEMENT MEDICARE POS PPO REPLACEMENT MEDICARE POS PPO REPLACEMENT [facility] MEDICARE POS PPO REPLACEMENT [employer] POS PPO REPLACEMENT [facility] MEDICARE POS PPO REPLACEMENT Care Teams Boiler Repairman Relationship Specialty Start Date End Date Meghan Hicks MD [address] [place] [address] PCP - General Pediatrics 08/27/17 Additional Source Comments The information contained in this document represents components of the legal health record. It is not the complete legal health record.[facility]
--- OUTSIDE RECORDS SUMMARY | 2025-04-13 15:10 | XMS_ITS | Encounter Summary ---
Author Organization [facility] Address [address] [place] [address] Care Team Providers Care Airplane Electrical Repairer Name Role Phone Mayo Donnelly MD Primary Care Provider [phone] Encounter Details Date Type Department Care Team (Late st Contact Info) Description 08/01/2024 Lab Requisition [facility] - Main Lab [address] [facility] [place] [address] Mayo Donnelly MD [address] [place] [address] Encounter for other general examination Social History [...] AM EST) WBC 11.1(H) 4.8 - 10.8 K/[facility] LAB HEMETOLOGY METHOD 08/01/2024 10:45 AM [facility] RBC 3.80 3.80 - 4.80 M/[facility] LAB HEMETOLOGY METHOD 08/01/2024 10:45 AM [facility] LAB Hemoglobin 9.3(L) 11.5 - 16.0 g/dL LAB HEMETOLOGY METHOD 08/01/2024 10:45 AM [facility] LAB Hematocrit 30.6(L) 35.0 - 47.0 % LAB HEMETOLOGY METHOD 08/01/2024 10:45 AM [facility] LAB MCV 81.4 79.0 - 98.0 FL LAB HEMETOLOGY METHOD 08/01/2024 10:45 AM [facility] LAB MCH 24.7(L) 27.0 - 32.0 pcg LAB HEMETOLOGY METHOD 08/01/2024 10:45 AM [facility] LAB MCHC 30.4(L) 32.0 - 37.0 g/dL LAB HEMETOLOGY METHOD 08/01/2024 10:45 AM [facility] LAB RDW 16.0(H) 11.0 - 15.0 % LAB HEMETOLOGY METHOD 08/01/2024 10:45 AM [facility] LAB Platelets 327 130 - 400 K/mcL LAB HEMETOLOGY METHOD 08/01/2024 10:45 AM [facility] LAB MPV 10.4 7.0 - 11.0 FL LAB HEMETOLOGY METHOD 08/01/2024 10:45 AM [facility] NRBC 0.0 <1.0 % LAB HEMETOLOGY METHOD 08/01/2024 10:45 AM [facility] LAB NRBC Absolute 0.00 <0.10 K/mcL LAB HEMETOLOGY METHOD 08/01/2024 10:45 AM [facility] Blood Venous blood specimen / Unknown Venipuncture / Unknown 08/01/2024 4:56 AM EST 08/01/2024 9:34 AM EST us Mayo Donnelly MD LAB BLOOD ORDERABLES Final Res ult [facility] [address] [place] [address], [place] [phone] * (ABNORMAL) Comprehensive metabolic panel (08/01/2024 4:56 AM EST) Sodium 136 133 - 145 mmol/L LAB CHEMISTRY METHOD 08/01/2024 11:16 AM EST [facility] Potassium 5.5 3.5 - 5.5 mmol/L LAB CHEMISTRY METHOD 08/01/2024 11:16 AM [facility] Chloride 105 96 - 110 mmol/L LAB CHEMISTRY METHOD 08/01/2024 11:16 AM [facility] CO2 26 21 - 32 mmol/L LAB CHEMISTRY METHOD 08/01/2024 11:16 AM [facility] Anion Gap 5 3 - 11 LAB CHEMISTRY METHOD 08/01/2024 11:16 AM [facility] Glucose 83 70 - 100 mg/dL LAB CHEMISTRY METHOD 08/01/2024 11:16 AM [facility] BUN 44(H) 5 - 25 mg/dL LAB CHEMISTRY METHOD 08/01/2024 11:16 AM [facility] Creatinine 1.15(H) 0.50 - 1.10 mg/dL LAB CHEMISTRY METHOD 08/01/2024 11:16 AM [facility] eGFR 49(L) >=60 mL/min/1. 73m2 LAB CHEMISTRY METHOD 08/01/2024 11:16 AM [facility] Comment:Calculation based on the Chronic Kidney Disease Epidemiology Collaboration (CKD-EPI) equation refit without adjustment for race. BUN/Creatinine Ratio 38.3 LAB CHEMISTRY METHOD 08/01/2024 11:16 AM [facility] Calcium 9.3 8.5 - 10.5 mg/dL LAB CHEMISTRY METHOD 08/01/2024 11:16 AM [facility] AST (SGOT) 23 10 - 42 unit/L LAB CHEMISTRY METHOD 08/01/2024 11:16 AM [facility] ALT (SGPT) 17 10 - 60 unit/L LAB CHEMISTRY METHOD 08/01/2024 11:16 AM [facility] Alkaline Phosphatase 67 42 - 121 unit/L LAB CHEMISTRY METHOD 08/01/2024 11:16 AM [facility] Total Protein 6.6 6.0 - 8.0 g/dL LAB CHEMISTRY METHOD 08/01/2024 11:16 AM [facility] Albumin 3.4 3.2 - 5.0 g/dL LAB CHEMISTRY METHOD 08/01/2024 11:16 AM [facility] Total Bilirubin 0.3 0.0 - 1.4 mg/dL LAB CHEMISTRY METHOD 08/01/2024 11:16 AM [facility] Blood Venous blood specimen / Unknown Venipuncture / Unknown 08/01/2024 4:56 AM EST 08/01/2024 9:34 AM EST us Mayo Donnelly MD LAB BLOOD ORDERABLES Final Res ult [facility] [address] [place] [address], documented in this encounter Visit Diagnoses Diagnosis Encounter for other general examination documented in this encounter Care Teams Airplane Electrical Repairer Relationship Specialty Start Date End Date Mayo Donnelly MD [address] [place] [phone] PCP - General Internal Medicine 11/06/24 documented as of this encounter
--- OUTSIDE RECORDS SUMMARY | 2025-04-13 15:10 | XMS_ITS | Encounter Summary ---
Author Organization [facility] Address [address] [place] [address] Care Team Providers Care Associate Professor Of Psychology Name Role Phone Mayo Donnelly MD Primary Care Provider [phone] Encounter Details Date Type Department Care Team (Late st Contact Info) Description 11/06/2024 Lab Requisition [facility] - Main Lab [address] [place] [address] Mayo Donnelly MD [address] [place] [phone] Encounter for other general examination Social History [...] LAB CHEMISTRY METHOD 11/06/2024 12:59 PM EDT [facility] ([facility] Blood Venous blood specimen / Unknown Venipuncture / Unknown 11/06/2024 6:24 AM EDT 11/06/2024 10:07 AM EDT us Mayo Donnelly MD LAB BLOOD ORDERABLES Final Res ult Performing Organization Address City/State/[facility] Co de Phone Number [facility] ([facility] [address] [place] [address], documented in this encounter Visit Diagnoses Diagnosis Encounter for other general examination documented in this encounter Care Teams Associate Professor Of Psychology Relationship Specialty Start Date End Date Mayo Donnelly MD [address] [place] [phone] PCP - General Internal Medicine 11/06/24 documented as of this encounter
--- OUTSIDE RECORDS SUMMARY | 2025-04-13 15:10 | XMS_ITS | Encounter Summary ---
Author Organization [facility] Address [address] [place] [address] Care Team Providers Care Custom Frame Assembler Name Role Phone SenAndree Ayoub Primary Care Provider [phone] Encounter Details Date Type Department Care Team (Late st Contact Info) Description 04/12/2025 eyeQhart Message [facility] [address] [place] [address] Business Employment Specialist: Paulette Lopes, Christen Dodd MD [address] [place] [phone] Urine c&s Social History Tobacco Use Types Packs/Day Years Used Date Smoking Tobacco: Former Cigarettes 1 45 1 954 - 1998 Smokeless Tobacco: Never Alcohol Use Standard Drinks/Week Comments Not Currently 0 (1 standard drink = 0.6 oz pur e alcohol) [facility] Utilities Answer Date Recorded In the past 12 months has [employer], gas, oil, or water [employer] threatened to shut off services in your [...] Info) Description 07/23/2025 3:00 PM EST Follow-Up [facility] [address] [place] [address] Business Employment Specialist: Christen Dempsey MD [address] [place] [address] documented as of this encounter Visit Diagnoses Not on filedocumented in this encounter Care Teams Custom Frame Assembler Relationship Specialty Start Date End Date Andree Lindquist PCP - General Family Medicine 03/26/23 documented as of this encounter
--- OUTSIDE RECORDS SUMMARY | 2025-04-13 15:10 | XMS_ITS | Encounter Summary ---
Author Organization [facility] Address [address] [facility] [address] [place] [address] Phone Care Team Providers Care Basketball Commentator Name Role Phone Meghan Hicks MD Primary Care Provider + Reason for Referral * Physical Therapy (Routine) - Closed Specialty Diagnoses / Procedures Referred By Rola isaac Referred To Contact Physical Therapy Diagnoses Encounter for rehabilitation System, Provider Not In, PhD [id number] [place] [address] Phone: tel: Referral ID Status Reason Start Date Expiration Date Visits Re quested Visits Authorized [id number] Closed 01/31/2018 07/11/2018 13 13 Encounter Details Date Type Department Care Team (Latest Contact Info) Description 01/31/2018 Transcribe Orders [facility] [address] [place] [phone] Meghan Hicks MD [address] [place] [address] Encounter for rehabilitation (Primary Dx) Social History Tobacco Use Types Packs/Day Years Used Date Smoking Tobacco: Never Assessed Comments Unknown Sex and Gender Information Value Date Recorded Sex Assigned at Not on file Legal Sex Female 6:51 PM EST Gender Identity Not on file Sexual Orientation Not on file documented as of this encounter Plan of Treatment Scheduled Referrals Name Type Priority Associated Diagnoses Orde r Schedule Ambulatory referral to [facility] Physical Therapy Outpatient Referral Routine Encounter for rehabilitation Ordered: 01/31/2018 documented as of this encounter Visit Diagnoses Diagnosis Encounter for rehabilitation- Primary documented in this encounter Care Teams Basketball Commentator Relationship Specialty Start Date End Date Meghan Hicks MD [address] [place] [address] PCP - General Pediatrics 08/27/17 documented as of this encounter Additional Source Comments The information contained in this document represents components of the legal health record. It is not the complete legal health record.[facility]
--- OUTSIDE RECORDS SUMMARY | 2025-04-13 15:10 | XMS_ITS | Encounter Summary ---
Author Organization [facility] Address [address] [place] [address] Care Team Providers Care Mechanic Helper Name Role Phone Mayo Donnelly MD Primary Care Provider Encounter Details Date Type Department Care Team (Late st Contact Info) Description 11/13/2024 Lab Requisition [facility] - Main Lab [address] [facility] [employer] [place] [address] Mayo Donnelly MD [address] [place] [address] Encounter for other general examination Social History [...] M/mcL LAB HEMETOLOGY METHOD [facility] Hemoglobin 8.9(L) 11.5 - 16.0 g/dL LAB HEMETOLOGY METHOD 11/13/2024 1:11 [facility] Hematocrit 29.8(L) 35.0 - 47.0 % LAB HEMETOLOGY METHOD 11/13/2024 1:11 PM [facility] MCV 74.5(L) 79.0 - 98.0 FL LAB HEMETOLOGY METHOD 11/13/2024 1:11 PM [facility] MCH 22.3(L) 27.0 - 32.0 pcg LAB HEMETOLOGY METHOD 11/13/2024 1:11 PM [facility] MCHC 29.9(L) 32.0 - 37.0 g/dL LAB HEMETOLOGY METHOD 11/13/2024 1:11 PM [facility] RDW 19.4(H) 11.0 - 15.0 % LAB HEMETOLOGY METHOD 11/13/2024 1:11 PM [facility] Platelets 474(H) 130 - 400 K/mcL LAB HEMETOLOGY METHOD 11/13/2024 1:11 [facility] MPV 9.7 7.0 - 11.0 FL LAB HEMETOLOGY METHOD 11/13/2024 1:11 PM [facility] NRBC 0.0 <1.0 % LAB HEMETOLOGY METHOD 11/13/2024 1:11 PM [facility] NRBC Absolute 0.00 <0.10 K/mcL [...] [facility] [address] [place] [address], [place] [phone] * (ABNORMAL) Basic metabolic panel (11/13/2024 6:23 [...] refit without adjustment for race. BUN/Creatinine Ratio 32.7 LAB CHEMISTRY METHOD 11/13/2024 1:09 PM EDT [facility] Calcium 9.6 8.5 - 10.5 mg/dL LAB CHEMISTRY METHOD 11/13/2024 1:09 PM EDT [facility] Blood Venous blood specimen / Unknown Venipuncture / Unknown 11/13/2024 6:23 AM EDT 11/13/2024 10:11 AM EDT us Mayo Donnelly MD LAB BLOOD ORDERABLES Final Res ult [facility] [address] [place] [address], [place] [phone] documented in this encounter Visit Diagnoses Diagnosis Encounter for other general examination documented in this encounter Care Teams Mechanic Helper Relationship Specialty Start Date End Date Mayo Donnelly MD [address] [place] [phone] PCP - General Internal Medicine 11/06/24 documented as of this encounter
--- OUTSIDE RECORDS SUMMARY | 2025-04-13 15:10 | XMS_ITS | Encounter Summary ---
Author Organization [facility] Address [address] [place] [address] Care Team Providers Care Senior Managing Director Name Role Phone CandelarioAndree andersen Primary Care Provider [phone] Encounter Details Date Type Department Care Team (Late st Contact Info) Description 04/12/2025 Results Follow-Up [facility] [address] [place] [address] Manager Cafe: Telma Loomis NP [address] [place] [address] Social History Tobacco Use Types Packs/Day Years Used Date Smoking Tobacco: Former Cigarettes 1 45 1 954 - 1998 Smokeless Tobacco: Never Alcohol Use Standard Drinks/Week Comments Not Currently 0 (1 standard drink = 0.6 oz pur e alcohol) [facility] Utilities Answer Date Recorded In the past 12 months has e [employer], gas, oil, or water company threatened to [...] encounter Miscellaneous Notes * Telephone Encounter - Lorena London LPN - 04/13/2025 9:33 AM EDT Outbound call to patients daughter. Let patient know that her urine was positive for an infection aRX for Macrobid was sent to pharmacy and to hold methenamine while on abx documented in this encounter Plan of Treatment Upcoming Encounters Date Type Department Care Team (Late st Contact Info) Description 07/23/2025 3:00 PM EST Follow-Up [facility] [address] [place] [address] Manager Cafe: Christen Dempsey MD [address] [place] [address] documented as of this encounter Visit Diagnoses Diagnosis Cystitis- Primary Unspecified cystitis documented in this encounter Care Teams Senior Managing Director Relationship Specialty Start Date End Date Andree Lindquist PCP - General Family Medicine 03/26/23 documented as of this encounter
--- OUTSIDE RECORDS SUMMARY | 2025-04-13 15:10 | XMS_ITS | Encounter Summary ---
Author Organization [facility] Address [address] [place] [address] Care Team Providers Care Grease Man Name Role Phone Mayo Donnelly MD Primary Care Provider [phone] Encounter Details Date Type Department Care Team (Late st Contact Info) Description 07/26/[address] [facility] - Main Lab [address] [facility] [place] [address] Mayo Donnelly MD [address] [place] [address] Encounter for other general examination Social History [...] Escherichia coli(A) YARED 07/29/2024 8:22 AM EST [facility] Culture, Urine 10,000-49,000 CFU/mL Enterococcus faecalis(A) YARED 07/29/2024 8:22 AM EST [facility] Comment: The organism value for this result has been updated. These results have been appended to the previously preliminary verified report. Edited result: Previously reported as Gram Positive Cocci on 07/28/2024 at 1053 EST. Urine Urine specimen obtained by clean catch procedure / Unknown 07/25/2024 6:02 PM EST 07/26/2024 12:32 PM EST [facility] - 07/29/2024 8:22 AM EST [...] MICROBIOLOGY - GENERAL ORD ERABLES Final Result [facility] [address] [place] [address], [place] [phone] * (ABNORMAL) Urinalysis with reflex microscopic and culture (07/25/2024 6:02 PM EST) Specific [place] Urine 1.025 1.003 - 1.030 LAB URINALYSIS [...] ORDERABLES Final Res ult Performing Organization Address City/[facility]/ZIP Co de Phone Number [facility] [address] [place] [address], [place] [phone] * Ceron urine culture tube (07/25/2024 6:02 PM EST) Extra Tube Hold for add-ons. 07/26/2024 1:01 PM EST [facility] Comment:Auto resulted. Urine Urine specimen obtained by clean catch procedure / Unknown 07/25/2024 6:02 PM EST 07/26/2024 11:14 AM EST us Mayo Donnelly MD LAB URINE ORDERABLES Final Res ult [facility] [address] [place] [address], [place] [phone] documented in this encounter Visit Diagnoses Diagnosis Encounter for other general examination documented in this encounter Care Teams Grease Man Relationship Specialty Start Date End Date Mayo Donnelly MD [address] [place] [phone] PCP - General Internal Medicine 11/06/24 documented as of this encounter
--- OUTSIDE RECORDS SUMMARY | 2025-04-13 15:10 | XMS_ITS | Clinical Summary ---
Author Organization [address] Address [address] [place] [address] Phone Care Team Providers Care Textile Dyer Name Role Phone Mayo Donnelly MD Primary Care Provider [phone] Encounters Date Type Department Care Team Description 02/28/2025 Lab Requisition [facility] [address] [place] [address] Bridget Moon PA Encounter for other general examination 02/27/2025 Lab Requisition [facility] [address] [place] [address] Bridget Moon PA Encounter for other general examination 02/26/2025 Lab Requisition [facility] [address] [place] [address] Kristian Long PA Encounter for other general examination 02/23/2025 Lab Requisition [facility] [address] [place] [address] Ronald Estrella MD Encounter for other general examination 02/21/2025 Lab Requisition [facility] [address] [place] [address] Ronald Estrella MD Encounter for other general examination 02/20/2025 Lab Requisition [facility] [address] [place] [address] Odalis Ruzi MD Encounter for other general examination 02/18/2025 Lab Requisition [facility] [address] [place] [phone] Bridget Moon PA Encounter for other general examination 02/16/2025 Lab Requisition [facility] [address] [place] [address] Bridget Moon PA Encounter for other general examination 02/15/2025 Lab Requisition [facility] [address] [place] [phone] Bridget Moon PA Encounter for other general examination 02/15/2025 Lab Requisition [facility] [address] [place] [phone] Estevan Varela PA Encounter for other general examination from Last [...] dr. logan, no intervention, Dr. 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[facility] V24, [facility] V28) 11/28/2012 DX:Diabetes mellitus type 2 with neurological manifestations (HCC); COMMENT: PMH of carpal tunnel Type 2 diabetes mellitus wit h cataract ([facility] V24, [facility] V28) 03/25/2015 DX:Type 2 diabetes mellitus with cataract (HCC); COMMENT: Cataracts Parkinson disease ([facility] V 24, [facility] V28) 10/16/2015 DX:Parkinson disease (HCC) [...] (Age mid 70's) thro at cancer, emphysema (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) Mother (Age mid 70's) Sister 1 Sister [...] of 3) 08/14/2011 06/19/2011 DTaP,Tdap,and Td Vaccines (3 - Td or Tdap) 03/16/2022 03/16/2012, 08/06/2006 Cholesterol Screening (Lipid Panel) 06/20/2022 Diabetes: Annual Urine Albumin-Creatinine Ratio (uACR) 06/20/2022 Diabetes: Blood Sugar Control Test (HGBA1C) 06/20/2022 Falls Risk Assessment 06/20/2022 Hepatitis C Screening 06/20/2022 Osteoporosis Screening (Bone Density Screening) 06/20/2022 Social Influencers of Health Screening 06/20/2022 RSV Immunization Adult Patients (1 - 1-dose 75+ series) 10/19/2022 Medicare Annual Wellness Visit 08/04/2023 08/04/2022 Depression Screening 07/12/2024 COVID-19 Vaccine ( season) 2025 05/28/2021, 09/26/2020, 09/05/2020 Influenza Vaccine (#1) 2025 , 06/08/2022, 05/26/2021, Additional history exists Diabetes: Annual GFR (Glomerular Filtration Rate) 02/27/2026 02/27/2025, 02/23/2025, 02/21/2025, Additional history exists Hypertension/CHF/CAD Annual BMP Blood Test 02/27/2026 02/27/2025, 02/23/2025, 02/21/2025, Additional history exists Pneumococcal Vaccine: 50+ Years [...] URINALYSIS WITH REFLEX MICROSCOPIC AND CULTURE Routine 02/28/2025 11:43 AM EDT Encounter for other general examination CERON URINE CULTURE TUBE Routine 02/28/2025 11:43 AM EDT Encounter for other general examination URINALYSIS WITH REFLEX MICROSCOPIC AND CULTURE Routine 02/28/2025 11:43 AM EDT Encounter for other general examination CULTURE URINE Routine 02/28/2025 11:43 AM EDT Encounter for other general examination COMPREHENSIVE METABOLIC PANEL Routine 02/27/2025 5:11 AM EDT Encounter for other general examination COMPLETE BLOOD COUNT Routine 02/26/2025 5:32 AM EDT Encounter for other general examination CBC WITH AUTO DIFFERENTIAL Routine 02/23/2025 5:26 AM EDT Encounter for other general examination CBC AND DIFFERENTIAL Routine 02/23/2025 5:26 AM EDT Encounter for other general examination MAGNESIUM Routine 02/23/2025 5:26 AM EDT Encounter for other general examination BASIC METABOLIC PANEL Routine 02/23/2025 5:26 AM EDT Encounter for other general examination MAGNESIUM Routine 02/21/2025 4:58 AM EDT Encounter for other general examination COMPREHENSIVE METABOLIC PANEL Routine 02/21/2025 4:58 AM EDT Encounter for other general examination COMPLETE BLOOD COUNT Routine 02/20/2025 5:13 AM EDT Encounter for other general examination CBC WITH AUTO DIFFERENTIAL Routine 02/18/2025 5:57 AM EDT Encounter for other general examination COMPREHENSIVE METABOLIC PANEL Routine 02/18/2025 5:57 AM EDT Encounter for other general examination CBC AND DIFFERENTIAL Routine 02/18/2025 5:57 AM EDT Encounter for other general examination BASIC METABOLIC PANEL Routine 02/16/2025 4:37 AM EDT Encounter for other general examination URINALYSIS WITH REFLEX MICROSCOPIC AND CULTURE Routine 02/15/2025 2:38 PM EDT Encounter for other general examination CERON URINE CULTURE TUBE Routine 02/15/2025 2:38 PM EDT Encounter for other general examination URINALYSIS WITH REFLEX MICROSCOPIC AND CULTURE Routine 02/15/2025 2:38 PM EDT Encounter for other general examination CULTURE URINE Routine 02/15/2025 2:38 PM EDT Encounter for other general examination CBC WITH AUTO DIFFERENTIAL Routine 02/15/2025 4:49 AM EDT Encounter for other general examination MAGNESIUM Routine 02/15/2025 4:49 AM EDT Encounter for other general examination COMPREHENSIVE METABOLIC PANEL Routine 02/15/2025 4:49 AM EDT Encounter for other general examination CBC AND DIFFERENTIAL Routine 02/15/2025 4:49 AM EDT Encounter for other general examination SCREENING MAMMOGRAPHY BI 2-VIEW BREAST INC CAD Routine 09/08/2021 9:58 AM EST Encounter for screening mammogram for malignant neoplasm of breast from Last 3 Months or Most Recently Relevant to Health Maintenance Results * (ABNORMAL) Urinalysis with reflex microscopic and culture (02/28/2025 11:43 AM EDT) Only the most recent of2 resultswithin the time period is included. Specific [place] Urine 1.016 1.003 - 1.030 LAB URINALYSIS - AUTOMATED METHOD 03/01/2025 10:54 AM [facility] pH, Urine 6.0 5.0 - 8.0 pH LAB URINALYSIS - AUTOMATED METHOD 03/01/2025 10:54 AM [facility] Leukocytes, Urine Large(A) Negative LAB URINALYSIS - AUTOMATED METHOD 03/01/2025 10:54 AM [facility] Nitrite, Urine Positive(A) Negative LAB URINALYSIS - AUTOMATED METHOD 03/01/2025 10:54 AM [facility] Protein, Urine 300(A) <=Trace mg/dL LAB URINALYSIS - AUTOMATED METHOD 03/01/2025 10:54 AM [facility] Glucose, Urine Negative Negative mg/dL LAB URINALYSIS - AUTOMATED METHOD 03/01/2025 10:54 AM [facility] Ketones, Urine Negative Negative mg/dL LAB URINALYSIS - AUTOMATED METHOD 03/01/2025 10:54 AM [facility] Urobilinogen , Urine 0.2 0.2 - 1.0 mg/dL LAB URINALYSIS - AUTOMATED METHOD 03/01/2025 10:54 AM [facility] Bilirubin, Urine Small(A) Negative LAB URINALYSIS - AUTOMATED METHOD 03/01/2025 10:54 AM [facility] Blood, Urine Large(A) Negative LAB URINALYSIS - AUTOMATED METHOD 03/01/2025 10:54 AM [facility] RBC, Urine >4,000(H) 0 - 4 /HPF LAB URINALYSIS - AUTOMATED METHOD 03/01/2025 10:54 AM [facility] WBC, Urine 2,090.6(H) 0 - 4 /HPF LAB URINALYSIS - AUTOMATED METHOD 03/01/2025 10:54 AM [facility] Squamous Epithelial, Urine 46 0 - 60 /LPF LAB URINALYSIS - AUTOMATED METHOD 03/01/2025 10:54 AM [facility] Bacteria, Urine Negative Negative /HPF LAB URINALYSIS - AUTOMATED METHOD 03/01/2025 10:54 AM [facility] Hyaline Casts, Urine >182(H) 0 - 3 /LPF LAB URINALYSIS - AUTOMATED METHOD 03/01/2025 10:54 AM [facility] Urine Urine specimen obtained by clean catch procedure / Unknown Non-blood Collection / Unknown 02/28/2025 11:43 AM EDT 03/01/2025 10:11 AM EDT us Bridget HENDRICKS LAB URINE ORDERABLES Final Re sult [facility] [address] [place] [address], [place] [phone] * Ceron urine culture tube (02/28/2025 11:43 AM EDT) Only the most recent of2 resultswithin the time period is included. Extra Tube Hold for add-ons. 03/01/2025 12:01 PM EDT [facility] Comment:Auto resulted. Urine Urine specimen obtained by clean catch procedure / Unknown Non-blood Collection / Unknown 02/28/2025 11:43 AM EDT 03/01/2025 10:11 AM EDT us Bridget HENDRICKS LAB URINE ORDERABLES Final Re sult Performing Organization Address [facility] de Phone Number [facility] [address] [place] [address], [place] [phone] * Culture urine (02/28/2025 11:43 AM EDT) Only the most recent of2 resultswithin the time period is included. Pathologist [facility] [place] Culture, Urine 10,000-49,000 CFU/mL Mixed bacterial morphotypes present suggestive of possible contamination during collection. Suggest appropriate recollection if clinically indicated. 03/02/2025 8:41 AM EDT [facility] Urine Urine specimen obtained by clean catch procedure / Unknown Non-blood Collection / Unknown 02/28/2025 11:43 AM EDT 03/01/2025 10:54 AM EDT us Bridget HENDRICKS LAB MICROBIOLOGY - GENERAL OR DERABLES Final Result Performing Organization Address [facility] Co de Phone Number [facility] [address] [place] [address], [place] [phone] * (ABNORMAL) Comprehensive metabolic panel (02/27/2025 5:11 AM EDT) Only the most recent of4 resultswithin the time period is included. Sodium 138 133 - 145 mmol/L LAB CHEMISTRY METHOD 02/27/2025 10:07 AM [facility] Potassium 5.1 3.5 - 5.5 mmol/L LAB CHEMISTRY METHOD 02/27/2025 10:07 AM [facility] Chloride 109 96 - 110 mmol/L LAB CHEMISTRY METHOD 02/27/2025 10:07 AM [facility] CO2 22 21 - 32 mmol/L LAB CHEMISTRY METHOD 02/27/2025 10:07 AM [facility] Anion Gap 7 3 - 11 LAB CHEMISTRY METHOD 02/27/2025 10:07 AM [facility] Glucose 82 70 - 100 mg/dL LAB CHEMISTRY METHOD 02/27/2025 10:07 AM [facility] BUN 40(H) 5 - 25 mg/dL LAB CHEMISTRY METHOD 02/27/2025 10:07 AM [facility] Creatinine 1.17(H) 0.50 - 1.10 mg/dL LAB CHEMISTRY METHOD 02/27/2025 10:07 AM [facility] eGFR 48(L) >=60 mL/min/1. 73m2 LAB CHEMISTRY METHOD 02/27/2025 10:07 AM [facility] Comment:Calculation based on the Chronic Kidney Disease Epidemiology Collaboration (CKD-EPI) equation refit without adjustment for race. BUN/Creatinine Ratio 34.2 LAB CHEMISTRY METHOD 02/27/2025 10:07 AM [facility] Calcium 9.4 8.5 - 10.5 mg/dL LAB CHEMISTRY METHOD 02/27/2025 10:07 AM [facility] AST (SGOT) 10 10 - 42 unit/L LAB CHEMISTRY METHOD 02/27/2025 10:07 AM [facility] ALT (SGPT) 17 10 - 60 unit/L LAB CHEMISTRY METHOD 02/27/2025 10:07 AM EDT [facility] Alkaline Phosphatase 77 42 - 121 unit/L LAB CHEMISTRY METHOD 02/27/2025 10:07 AM T [facility] Total Protein 6.5 6.0 - 8.0 g/dL LAB CHEMISTRY METHOD 02/27/2025 10:07 AM [facility] Albumin 3.5 3.2 - 5.0 g/dL LAB CHEMISTRY METHOD 02/27/2025 10:07 AM T [facility] Total Bilirubin 0.3 0.0 - 1.4 mg/dL LAB CHEMISTRY METHOD 02/27/2025 10:07 AM [facility] Blood Venous blood specimen / Unknown Venipuncture / Unknown 02/27/2025 5:11 AM EDT 02/27/2025 8:52 AM EDT us Bridget HENDRICKS LAB BLOOD ORDERABLES Final Re sult [facility] [address] [place] [address], * (ABNORMAL) Complete blood count (02/26/2025 5:32 AM EDT) Only the most recent of2 resultswithin the time period is included. WBC 8.3 4.8 - 10.8 K/mcL LAB HEMETOLOGY METHOD 02/26/2025 11:24 AM T [facility] RBC 4.00 3.80 - 4.80 M/mcL LAB HEMETOLOGY METHOD 02/26/2025 11:24 AM [facility] Hemoglobin 9.6(L) 11.5 - 16.0 g/dL LAB HEMETOLOGY METHOD 02/26/2025 11:24 AM [facility] Hematocrit 31.0(L) 35.0 - 47.0 % LAB HEMETOLOGY METHOD 02/26/2025 11:24 AM EDT [facility] MCV 77.3(L) 79.0 - 98.0 FL LAB HEMETOLOGY METHOD 02/26/2025 11:24 AM EDT [facility] MCH 23.9(L) 27.0 - 32.0 pcg LAB HEMETOLOGY METHOD 02/26/2025 11:24 AM EDT [facility] MCHC 31.0(L) 32.0 - 37.0 g/dL LAB HEMETOLOGY METHOD 02/26/2025 11:24 AM EDT [facility] RDW 18.2(H) 11.0 - 15.0 % LAB HEMETOLOGY METHOD 02/26/2025 11:24 AM EDT [facility] Platelets 297 130 - 400 K/mcL LAB HEMETOLOGY METHOD 02/26/2025 11:24 AM EDT [facility] MPV 10.8 7.0 - 11.0 FL LAB HEMETOLOGY METHOD 02/26/2025 11:24 AM EDT [facility] NRBC 0.0 <1.0 % LAB HEMETOLOGY METHOD 02/26/2025 11:24 AM EDT [facility] NRBC Absolute 0.00 <0.10 K/mcL LAB HEMETOLOGY METHOD 02/26/2025 11:24 AM T [facility] Blood Venous blood specimen / Unknown Venipuncture / Unknown 02/26/2025 5:32 AM EDT 02/26/2025 10:15 AM EDT us Kristian HENDRICKS LAB BLOOD ORDERABLES Final Result [facility] [address] [place] [address], * (ABNORMAL) CBC auto differential (02/23/2025 5:26 AM EDT) Only the most recent of3 resultswithin the time period is included. [facility] WBC 6.6 4.8 - 10.8 K/mcL LAB HEMETOLOGY METHOD 02/23/2025 11:04 AM [facility] RBC 4.10 3.80 - 4.80 M/mcL LAB HEMETOLOGY METHOD 02/23/2025 11:04 AM [facility] Hemoglobin 9.8(L) 11.5 - 16.0 g/dL LAB HEMETOLOGY METHOD 02/23/2025 11:04 AM [facility] Hematocrit 32.0(L) 35.0 - 47.0 % LAB HEMETOLOGY METHOD 02/23/2025 11:04 AM [facility] MCV 78.0(L) 79.0 - 98.0 FL LAB HEMETOLOGY METHOD 02/23/2025 11:04 AM [facility] MCH 23.9(L) 27.0 - 32.0 pcg LAB HEMETOLOGY METHOD 02/23/2025 11:04 AM [facility] MCHC 30.6(L) 32.0 - 37.0 g/dL LAB HEMETOLOGY METHOD 02/23/2025 11:04 AM [facility] RDW 18.4(H) 11.0 - 15.0 % LAB HEMETOLOGY METHOD 02/23/2025 11:04 AM [facility] Platelets 318 130 - 400 K/mcL LAB HEMETOLOGY METHOD 02/23/2025 11:04 AM [facility] MPV 10.5 7.0 - 11.0 FL LAB HEMETOLOGY METHOD 02/23/2025 11:04 AM [facility] NRBC 0.0 <1.0 % LAB HEMETOLOGY METHOD 02/23/2025 11:04 AM [facility] NRBC Absolute 0.00 <0.10 K/mcL LAB HEMETOLOGY METHOD 02/23/2025 11:04 AM [facility] Neutrophils Relative 60.4 % LAB HEMETOLOGY METHOD 02/23/2025 11:04 AM [facility] Lymphocytes Relative 24.1 % LAB HEMETOLOGY METHOD 02/23/2025 11:04 AM [facility] Monocytes Relative 11.5 % LAB HEMETOLOGY METHOD 02/23/2025 11:04 AM [facility] Eosinophils Relative 3.5 % LAB HEMETOLOGY METHOD 02/23/2025 11:04 AM [facility] Basophils Relative 0.2 % LAB HEMETOLOGY METHOD 02/23/2025 11:04 AM [facility] Immature Granulocytes Relative 0.3 % LAB HEMETOLOGY METHOD 02/23/2025 11:04 AM [facility] Neutrophils Absolute 3.96 1.50 - 7.00 K/mcL LAB HEMETOLOGY METHOD 02/23/2025 11:04 AM [facility] Lymphocytes Absolute 1.58 1.00 - 5.00 K/mcL LAB HEMETOLOGY METHOD 02/23/2025 11:04 AM [facility] Monocytes Absolute 0.75 0.20 - 1.00 K/mcL LAB HEMETOLOGY METHOD 02/23/2025 11:04 AM [facility] Eosinophils Absolute 0.23 0.00 - 0.50 K/mcL LAB HEMETOLOGY METHOD 02/23/2025 11:04 AM [facility] Basophils Absolute 0.01 0.00 - 0.20 K/mcL LAB HEMETOLOGY METHOD 02/23/2025 11:04 AM [facility] Immature Granulocytes Absolute 0.02 0.00 - 0.03 K/mcL LAB HEMETOLOGY METHOD 02/23/2025 11:04 AM EDT [facility] Blood Venous blood specimen / Unknown Venipuncture / Unknown 02/23/2025 5:26 AM EDT 02/23/2025 9:52 AM EDT us Ronald Estrella MD LAB BLOOD ORDERABLES Final Resu lt Performing Organization Address City/[facility]/ZIP Co de Phone Number [facility] [address] [place] [address], [place] [phone] * Magnesium (02/23/2025 5:26 AM EDT) Only the most recent of3 resultswithin the time period is included. Magnesium 1.9 1.9 - 2.6 mg/dL LAB CHEMISTRY METHOD 02/23/2025 11:35 AM EDT [facility] Blood Venous blood specimen / Unknown Venipuncture / Unknown 02/23/2025 5:26 AM EDT 02/23/2025 9:52 AM EDT us Ronald Estrella MD LAB BLOOD ORDERABLES Final Resu lt Performing Organization Address [facility]/ZIP Co de Phone Number [facility] [address] [place] [address], [place] [phone] * (ABNORMAL) Basic metabolic panel (02/23/2025 5:26 AM EDT) Only the most recent of2 resultswithin the time period is included. Sodium 137 133 - 145 mmol/L LAB CHEMISTRY METHOD 02/23/2025 11:35 AM EDT [facility] Potassium 5.0 3.5 - 5.5 mmol/L LAB CHEMISTRY METHOD 02/23/2025 11:35 AM EDT [facility] Chloride 107 96 - 110 mmol/L LAB CHEMISTRY METHOD 02/23/2025 11:35 AM EDT [facility] CO2 26 21 - 32 mmol/L LAB CHEMISTRY METHOD 02/23/2025 11:35 AM EDT [facility] Anion Gap 4 3 - 11 LAB CHEMISTRY METHOD 02/23/2025 11:35 AM [facility] Glucose 99 70 - 100 mg/dL LAB CHEMISTRY METHOD 02/23/2025 11:35 AM [facility] BUN 44(H) 5 - 25 mg/dL LAB CHEMISTRY METHOD 02/23/2025 11:35 AM [facility] Creatinine 1.23(H) 0.50 - 1.10 mg/dL LAB CHEMISTRY METHOD 02/23/2025 11:35 AM [facility] eGFR 45(L) >=60 mL/min/1. 73m2 LAB CHEMISTRY METHOD 02/23/2025 11:35 AM [facility] Comment:Calculation based on the Chronic Kidney Disease Epidemiology Collaboration (CKD-EPI) equation refit without adjustment for race. BUN/Creatinine Ratio 35.8 LAB CHEMISTRY METHOD 02/23/2025 11:35 AM [facility] Calcium 9.3 8.5 - 10.5 mg/dL LAB CHEMISTRY METHOD 02/23/2025 11:35 AM [facility] Blood Venous blood specimen / Unknown Venipuncture / Unknown 02/23/2025 5:26 AM EDT 02/23/2025 9:52 AM EDT us Ronald Estrella MD LAB BLOOD ORDERABLES Final Resu lt [facility] [address] [place] [address], * SCREENING MAMMOGRAPHY BI 2-VIEW BREAST INC [...] interpreted with the aid of computer-aided detection. Comparison is made with 09/02/2020 and as far back as 08/20/2017. Breast parenchyma is composed of scattered fibroglandular densities. 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
--- OUTSIDE RECORDS SUMMARY | 2025-04-13 15:10 | XMS_ITS | Encounter Summary ---
Author Organization [facility] Address [address] [place] [phone] Phone Care Team Providers Care Paint Spraying Machine Operator Helper Name Role Phone Meghan Hicks MD Primary Care Provider + Reason for Referral * Physical Therapy (Routine) - Closed Specialty Diagnoses / Procedures Referred By Rola isaac Referred To Contact Physical Therapy Diagnoses Encounter for rehabilitation System, Provider Not In, [facility] [address] [address] Phone: tel: Referral ID Status Reason Start Date Expiration Date Visits Re quested Visits Authorized [id number] Closed 07/12/2017 08/30/2018 25 25 Encounter Details Date Type Department Care Team (Latest Contact Info) Description 08/30/2017 Transcribe Orders [facility] [address] [place] [id number] System, Provider Not In, [facility] [address] [address] Encounter for rehabilitation (Primary Dx) Social History [...] Diagnoses Orde r Schedule Ambulatory referral to [facility] Physical Therapy Outpatient Referral Routine Encounter for rehabilitation Ordered: 08/30/2017 documented as of this encounter Visit Diagnoses Diagnosis Encounter for rehabilitation- Primary documented in this encounter Care Teams Paint Spraying Machine Operator Helper Relationship Specialty Start Date End Date Meghan Hicks MD [address] [place] [address] PCP - General Pediatrics 08/27/17 documented as of this encounter Additional Source Comments The information contained in this document represents components of the legal health record. It is not the complete legal health record.[facility]
--- OUTSIDE RECORDS SUMMARY | 2025-04-13 15:11 | XMS_ITS | Encounter Summary ---
Author Organization [facility] Address [address] [place] [address] Care Team Providers Care Instrumentation Specialist Name Role Phone KtAndree Pretty Primary Care Provider [phone] Encounter Details Date Type Department Care Team (Late st Contact Info) Description 04/09/2025 Orders Only [facility] [address] [place] [address] Switching Operator: Paulette Pike LPN Acute cystitis with hematuria Social History Tobacco Use Types Packs/Day Years Used Date Smoking Tobacco: Former Cigarettes 1 45 1 954 - 1998 Smokeless Tobacco: Never Alcohol Use Standard Drinks/Week Comments Not Currently 0 (1 standard drink = 0.6 oz pur e alcohol) [facility] Utilities Answer Date Recorded In the [...] Info) Description 07/23/2025 3:00 PM EST Follow-Up [facility] [address] [place] [address] Switching Operator: Christen Dempsey MD [address] [place] [address] [phone] documented as of this encounter Procedures * Due to [facility] law, this organization might not be sharing negative HIV tests. Procedure Name Priority Date/Time Associated Diagnosis Comments URINE CULTURE, ROUTINE Routine 04/09/2025 2:21 PM EDT Acute cystitis with hematuria documented in this encounter Results * Due to [place] [employer] law, this organization might not be sharing negative HIV tests. * (ABNORMAL) Urine Culture, Routine (04/09/2025 2:21 PM EDT) Culture Results Updated 04/11/2025 10:23 PM EDT [employer] [facility] Culture Hafnia alvei(A) 04/11/2025 10:23 PM EDT [employer] [facility] Comment:Greater than 100,000 CFU/mL of Hafnia alvei Urine Urine specimen collection, clean catch / Unknown Non-Blood Collection / Unknown 04/09/2025 2:21 PM EDT 04/09/2025 2:25 PM EDT Narrative [facility] - 04/11/2025 10:23 PM EDT [facility] Received Date:[id number] MICRO NUMBER: [id number] SPECIMEN QUALITY: Adequate SOURCE: URINE CLEAN CATCH STATUS: FINAL Organism Antibiotic Method Susceptibility Hafnia alvei Amikacin <=2: Susceptible Hafmaribel thibodeauxi Ampicillin >=32: Resistant Hafmaribel alvei Ampicillin + Sulbactam >=32: Resistant Hafnia alvei Cefazolin >=64: Resistant Comment: For uncomplicated UTI caused by E. coli, K. pneumoniae or P. mirabilis: Cefazolin is susceptible if YARED <32 mcg/mL and predicts susceptible to the oral agents cefaclor, cefdinir, cefpodoxime, cefprozil, cefuroxime, cephalexin and loracarbef. Hafmaribel thibodeauxi Ceftazidime >=64: Resistant Hafmaribel thibodeauxi Cefepime <=1: Susceptible Hafnia alvei Ceftriaxone 32: Resistant Hafmaribel alvei Ciprofloxacin <=0.25: Susceptible Hafnia alvei Ertapenem <=0.5: Susceptible Hafnia alvei Gentamicin <=1: Susceptible Hafmaribel alvei Meropenem <=0.25: Susceptible Hafmaribel thibodeauxi Nitrofurantoin <=16: Susceptible Hafmaribel alvei Piperacillin + Tazobactam >=128: Resistant Hafmaribel alvei Tobramycin <=1: Susceptible Hafmaribel thibodeauxi Trimethoprim + Sulfamethoxazole <=20: Susceptible Comment: Legend: S = Susceptible I = Intermediate R = Resistant NS = Not susceptible SDD = Susceptible Dose Dependent * = Not Tested NR = Not Reported NN = See Therapy Comments Christen Lopes MD LAB MICROBIOLOGY - GENERAL OR DERABLES Final Result Performing Organization Address City/State/[facility] Co de Phone Number [facility] [address] [facility] [address], [place] [address], [place] [phone] [employer] [facility] [address] [facility] [address] Floor, [place] [address], [place] [phone] documented in this encounter Visit Diagnoses Diagnosis Acute cystitis with hematuria documented in this encounter Care Teams Instrumentation Specialist Relationship Specialty Start Date End Date Andree Lindquist PCP - General Family Medicine 03/26/23 documented as of this encounter
--- OUTSIDE RECORDS SUMMARY | 2025-04-13 15:11 | XMS_ITS | Clinical Summary ---
Author Organization [facility] Address [address] [place] [address] Care Team Providers Care Printed Circuit Boards Plasma Etcher Name Role Phone Ameena Andree Primary Care Provider [phone] Allergies Active Allergy Reactions Criticality Noted Date Comments Cefdinir Rash 07/22/2023 Tolerated ceftriaxone 10/2023 Sulfa (Sulfonamide Antibiotics) Rash 07/22/2023 Trimethoprim Rash 07/22/2023 Medications glipiZIDE (GLUCOTROL) 5 mg tablet Take 2.5 mg by mouth once a day. 05/26/20 23 Active acidophilus-pe ctin, citrus 25 million cell -100 mg tablet Take 1 capsule by mouth after lunch. 05/19/20 23 Active Estring 2 mg (7.5 mcg /24 hour) vaginal ring Apply 2 mg to the vagina every 3 months. 05/24/[address] (PROTONIX) 40 mg tablet 40 mg at bed time. Active sertraline (ZOLOFT) 100 mg tablet Take 100 mg by mouth every morning. Active umeclidinium (INCRUSE ELLIPTA) 62.5 mcg/actuation blister with device Take 1 puff by mouth every morning. 05/19/20 23 Active carbidopa-levo dopa (SINEMET) 25-100 [...] mouth once a day. 11/22/19 24 Active magnesium oxide (MAG-OX) 400 mg (241.3 mg mag) tablet Take 400 mg by mouth 2 times a day. Active multivitamin (THERAGRAN) tablet Take 1 tablet by mouth once a day. Active coQ10, ubiquinol, 200 mg capsule Take 200 mg by mouth. 09/29/19 25 026 Active omega-3s/dha/e pa/fish oil/D3 (VITAMIN-D + OMEGA-3 ORAL) once a week. saturdays09/13/19 25 Active Neurontin 300 mg capsule Take 300 mg by mouth 2 times a day. 09/05/19 25 Active acetaminophen (TYLENOL) 325 mg tablet Take 650 mg by mouth 3 times a day. Active dextromethorph an-guaifenesin (ROBITUSSIN DM) 20-200 mg/10 mL syrup Take 5 mL by mouth every 4 hours as needed for cough. 11/03/19 25 Active LORazepam (ATIVAN) 0.5 mg tablet Take 0.5 tablets (0.25 mg total) by mouth nightly as needed for anxiety for up to 4 days. 11/03/19 25 Active losartan (COZAAR) 25 mg tablet Take 1 tablet (25 mg total) by mouth once a day. Takes 50mg qAM and 25mg at 7pm if SBP>130 11/03/19 25 Active senna (SENOKOT) 8.6 mg tablet Take 1 tablet (8.6 mg total) by mouth daily as needed for constipation. 11/03/19 25 Active methenamine (HIPREX) 1 gram tabletIndicati ons:Acute cystitis with hematuria Take 1 tablet (1 g total) by mouth 2 times a day. Take with vitamin C 180 tablet 3 12/08/19 25 026 Active nitrofurantoin monohydrate/ma crocrystals (MACROBID) 100 mg capsuleIndicat ions:Cystitis Take 1 capsule (100 mg total) by mouth 2 times a day for 7 days. 14 capsule 04/12/20 25 025 Active aspirin 81 mg capsule aspirin 81mg, 0 Refills, Maintenance, 09/12/24 9:32:00 AM EST 09/13/19 25 025 Discontinued phenazopyridin e (PYRIDIUM) 200 mg tablet Take 1 tablet (200 mg total) by mouth 3 times a day as needed for bladder spasms. 9 tablet 10/17/2024 9:45 AM EDT 10/18/19 025 Discontinued benzonatate (TESSALON) 100 mg capsule Take 1 capsule (100 mg total) by mouth 3 times a day as needed for cough. 11/03/19 025 Discontinued polyethylene glycol 3350 (MIRALAX) 17 gram packet Take 1 packet (17 g total) by mouth daily as needed for constipation. Mix powder in 4 to 8 oz of water, juice, coffee, or tea prior to administratio n. 11/03/19 025 Discontinued Hospital, Clinic, or Other Facility Administered Medication Ordered Dose Route Frequency Start Date End Date Status lidocaine (XYLOCAINE) 2% (20 mg/mL) urojet jelly 10 mLIndications:Gross hematuria 10 mL urethral Once 04/09/2025 04/09/2025 Ended nitrofurantoin monohydrate/macrocrystal s (MACROBID) 100 mg capsule 100 mgIndications:Gross hematuria 100 mg oral Once 04/09/2025 04/09/2025 Ended Active Problems Problem Noted Date Diagnosed Date [...] daily see TAVR No statin present on ADDICTION PSYCHIATRIST med rec on admission, although noted in EMR that patient should be taking atorvastatin 40 mg, unclear if this was discontinued ADDICTION PSYCHIATRIST - consider re-initiating statin while admitted; plan to discuss with family Assessment & Plan (10/30/2024 3:03 PM EDT): Home meds: asa 81 mg daily see TAVR No statin present on ADDICTION PSYCHIATRIST med rec on admission, although noted in EMR that patient should be taking atorvastatin 40 mg, unclear if this was discontinued ADDICTION PSYCHIATRIST - consider re-initiating statin while admitted Assessment & Plan (10/30/2024 11:55 AM EDT): Home meds: asa 81 mg daily see TAVR No statin present on ADDICTION PSYCHIATRIST med rec on admission, although noted in EMR that patient should be taking atorvastatin 40 mg, unclear if this was discontinued ADDICTION PSYCHIATRIST - consider re-initiating statin while admitted Impaired mobility and ADLs 10/30/2024 Assessment & Plan (11/01/2024 7:12 AM EDT): PT following, rec dc to inpt facility Assessment & Plan (10/30/2024 3:03 PM EDT): PT following, rec dc to inpt facility Dysphagia 10/29/2024 Assessment & Plan (11/01/2024 7:12 AM EDT): Patient with sensation of something stuck in her throat. WOMEN'S LACROSSE COACH following, most recent eval 10/30: Recommend a level 0/thin liquid, level 7/easy to chew solid diet. Recommend intermittent supervision to cue patient for recommended swallow strategies: upright 90 deg during meals, small bite/sips, SINGLE sips at a time. Assessment & Plan (10/30/2024 3:03 PM EDT): Patient with sensation of something stuck in her throat. WOMEN'S LACROSSE COACH following, most recent eval 10/30: Recommend a level 0/thin liquid, level 7/easy to chew solid diet. Recommend intermittent supervision to cue patient for recommended swallow strategies: upright 90 deg during meals, small bite/sips, SINGLE sips at a time. Assessment & Plan (10/30/2024 11:55 AM EDT): Patient with sensation of something stuck in her throat. WOMEN'S LACROSSE COACH following, most recent eval 10/30: Recommend a level 0/thin liquid, level 7/easy to chew solid diet. Recommend intermittent supervision to cue patient for recommended swallow strategies: upright 90 deg during meals, small bite/sips, SINGLE sips at a time. Assessment & Plan (10/29/2024 1:57 PM EDT): Patient with sensation of something stuck in her throat. WOMEN'S LACROSSE COACH on 420 clearing patient for a level 6 solids and level 0 liquid. Plan for MBS per WOMEN'S LACROSSE COACH Continue level 6 solids and level 0 [...] with chemodenervation (botox); was done by Dr. Lpoes on 10/17/24. Urology consulted and following, keep [...] to address severe anemia. -No indication for GROUP EXERCISE CLASS INSTRUCTOR at this time; given the patient's underlying comorbidities, would discuss GOC with family before committing to GROUP EXERCISE CLASS INSTRUCTOR should a potential need develop. Acute renal [...] Encounters Date Type Department Care Team Description 04/12/2025 [employer] Message [facility] [address] [address] Dental Hygiene Administrative Assistant: Christen Dempsey MD Urine c&s 04/12/2025 Results Follow-Up [facility] [address] [address] Dental Hygiene Administrative Assistant: Telma Loomis NP 04/09/2025 9:30 AM EDT Office Visit [facility] [address] [address] Dental Hygiene Administrative Assistant: Christen Dempsey MD Gross hematuria (Primary Dx); Overactive bladder; Acute cystitis with hematuria 04/09/2025 Orders Only [facility] [address] [address] Dental Hygiene Administrative Assistant: Paulette Pike LPN Acute cystitis with hematuria 02/22/2025 [employer] Message [facility] [address] [address] Dental Hygiene Administrative Assistant: Christen Dempsey MD Office visit 01/24/2025 Orders Only [facility] [address] [address] Dental Hygiene Administrative Assistant: Christen Dempsey MD Acute cystitis with hematuria (Primary Dx) 01/24/2025 Orders Only [facility] [address] [place] [address] Dental Hygiene Administrative Assistant: Inderjit Lin MD from Last 3 Months Family History Medical History Relation Name Comments COPD Father Throat cancer Father Colon cancer Mother Heart disease Mother [place] Relation Name Status Comments Father Mother Social History Tobacco Use Types Packs/Day Years Used Date Smoking Tobacco: Former Cigarettes 1 45 1 954 - 1998 Smokeless Tobacco: Never Tobacco Cessation:Counseling Given: Not Answered Alcohol Use Standard Drinks/Week Comments Not Currently 0 (1 standard drink = 0.6 oz pur e alcohol) [facility] Utilities Answer Date Recorded In the [...] Pulse 71 04/09/2025 9:21 AM EDT Temperature 36.6 C (97.9 F) 11/02/2024 11:21 AM EDT Respiratory Rate 18 11/02/2024 11:21 AM EDT [...] Info) Description 07/23/2025 3:00 PM EST Follow-Up [facility] [address] [place] [address] Dental Hygiene Administrative Assistant: Christen Dempsey MD [address] [place] [address] Health Maintenance Due Date Last Done Comments [...] patients) (1 - 1-dose 75+ series) 10/19/2022 Alcohol/Substance Use Screening 07/12/2024 Depression Screening and Follow-Up 07/12/2024 Health Care Proxy Review 07/12/2024 Ophthalmology Exam 08/26/2024 08/26/2023, 08/17/2022 COVID-19 Vaccine (4 - 2024-2 6 season) 2025 05/28/2021, 09/26/2020, 09/05/2020 Influenza Vaccine (#1) 2025 3, 06/08/2022, 04/29/2020, Additional history exists Social Drivers of Health Odalis ual Screening 10/28/2025 10/28/2024 Basic Metabolic Panel 02/27/2026 02/27/2025 , 02/23/2025, 02/21/2025, Additional history exists Pneumococcal Vaccine: 50+ Years Completed 08/05/2016, 12/31/2014, 03/27/2009 Cologuard Discontinued 10/06/2021, 10/06/2021 Colon Cancer Screening Discontinued Colonoscopy Discontinued FOBT / Fit Test Discontinued Sigmoidoscopy Discontinued Procedures * Due to [place] [employer] law, this organization might not be sharing negative HIV tests. Procedure Name Priority Date/Time Associated Diagnosis Comments URINE CULTURE, ROUTINE Routine 04/09/2025 2:21 PM EDT Acute cystitis with hematuria POCT AUTOMATED URINALYSIS DIPSTICK Routine 04/09/2025 9:11 AM EDT URINE CULTURE, ROUTINE, OUTSIDE LAB Routine 01/22/2025 2:24 PM EDT BASIC METABOLIC PANEL Routine 11/02/2024 6:01 AM EDT from Last 3 Months or Most Recently Relevant to Health Maintenance Results * Due to [place] [employer] law, this organization might not be sharing negative HIV tests. * (ABNORMAL) Urine Culture, Routine (04/09/2025 2:21 PM EDT) Culture Results Updated 04/11/2025 10:23 PM EDT [employer] Culture Hafnia alvei(A) 04/11/2025 10:23 PM EDT [employer] Comment:Greater than 100,000 CFU/mL of Hafnia alvei Urine Urine specimen collection, clean catch / Unknown Non-Blood Collection / Unknown 04/09/2025 2:21 PM EDT 04/09/2025 2:25 PM EDT [facility] 04/11/2025 10:23 PM EDT [facility] Received Date: MICRO NUMBER: [id number] SPECIMEN QUALITY: Adequate SOURCE: URINE CLEAN CATCH [...] OR DERABLES Final Result Performing Organization Address City/State/[facility] Co de Phone Number [facility] [address], [place] [address], [place] [phone] [employer] [facility] [address] [facility] [address], [place] [address], [place] [phone] * (ABNORMAL) POCT Automated Urinalysis Dipstick, interfaced (04/09/2025 9:11 AM EDT) [facility] Signature Color, POCT Yellow Yellow, Light Yellow, Dark Yellow 04/09/2025 9:13 AM EDT [facility] Clarity, POCT Clear Clear 04/09/2025 9:13 AM EDT [facility] Glucose, POCT Negative Negative mg/dL 04/09/2025 9:13 AM EDT [facility] Bilirubin, POCT Negative Negative 04/09/2025 9:13 AM EDT [facility] Ketones, POCT Negative Negative mg/dL 04/09/2025 9:13 AM EDT [facility] Specific [place], POCT 1.020 1.005 - 1.030 04/09/2025 9:13 AM EDT [facility] Blood, POCT Large(A) Negative 04/09/2025 9:13 AM EDT [facility] pH, POCT 5.5 5.0 - 8.0 04/09/2025 9:13 AM EDT [facility] Protein, POCT 100(A) Negative mg/dL 04/09/2025 9:13 AM EDT [facility] Urobilinogen, POCT 0.2 0.2, 1.0 EU/dL 04/09/2025 9:13 AM EDT [facility] Nitrite, POCT Positive(A) Negative 04/09/2025 9:13 AM EDT [facility] Leukocyte Esterase, POCT Moderate(A) Negative 04/09/2025 9:13 AM EDT [facility] Urine 04/09/2025 9:11 AM EDT 04/09/2025 9:13 AM EDT us Christen Lopes MD LAB POCT ORDERABLES - DEVICE Final Result [facility] [address] [place] [address], * Urine Culture, Routine, Outside Lab (01/22/2025 2:24 PM EDT) Urine Urine specimen collection, clean catch / Unknown us Unknown Provider LAB MICROBIOLOGY - GENERAL O RDERABLES Final Result * (ABNORMAL) Basic metabolic panel (11/02/2024 6:01 AM EDT) NA 137 135 - 145 mmol/L 11/02/2024 6:43 AM EDT [facility] K 4.1 3.5 - 5.3 mmol/L 11/02/2024 6:43 AM EDT [facility] Cl 101 98 - 107 mmol/L 11/02/2024 6:43 AM EDT [facility] CO2 25 22 - 32 mmol/L 11/02/2024 6:43 AM EDT [facility] BUN 29(H) 7 - 23 mg/dL 11/02/2024 6:43 AM EDT [facility] Creatinine 0.94 0.50 - 1.20 mg/dL 11/02/2024 6:43 AM EDT [facility] Glucose 138(H) 65 - 99 mg/dL 11/02/2024 6:43 AM EDT [facility] Calcium 8.9 8.6 - 10.5 mg/dL 11/02/2024 6:[facility] Anion Gap 11 5 - 15 11/02/2024 6:43 AM EDT [facility] eGFR 63 >=60 mL/min/1. 73m2 11/02/2024 6:43 AM EDT [facility] Comment:The estimated glomer ular filtration rate (eGFR) is calculated using a new formula developed by the NKF-ASN task force to eliminate race-based correction factors. The new formula uses serum/plasma creatinine, age, and gender to determine eGFR. A value below 60mls/min might indicate kidney disease and will be flagged. For additional information, see Dipesh pineda al, Am J Kidney Dis. 2021;79(2):268- 288, A Unifying Approach for GFR estimation: Recommendations of the NKF-ASN Task Force on Reassessing the Inclusion of Race in Diagnosing Kidney Disease . Blood Structure of peripheral vein / Unknown Venipuncture / Unknown 11/02/2024 6:01 AM EDT 11/02/2024 6:12 AM EDT us Radha Elias MD LAB BLOOD ORDERABLES Ambar eastman Result [facility] [address] [place] [address], [place] from Last 3 Months or Most Recently Relevant to Health Maintenance Insurance [facility] MEDIC[facility] Advance Directives Documents on File Type Date Recorded Patient Canvas Cutter Expl anation Health Care Proxy 10/17/2024 7:28 [...] Communication Martita Pope Daughter Health Care Agent [email or web address] Care Teams [employer]ed [employer] Boards Plasma Etcher Relationship Specialty Start Date End Date Andree Lindquist PCP - General Family Medicine 03/26/23
--- OUTSIDE RECORDS SUMMARY | 2025-04-13 15:11 | XMS_ITS | Encounter Summary ---
Author Organization [facility] Address [address] [place] [address] Care Team Providers Care Drapery Head Former Name Role Phone Mayo Donnelly MD Primary Care Provider [phone] Encounter Details Date Type Department Care Team (Late st Contact Info) Description 07/25/2024 Lab Requisition [facility] [address] [facility] [place] [address] Mayo Donnelly MD [address] [place] [address] Encounter for other general examination Social History [...] reflex microscopic (07/24/2024 6:55 PM EST) Specific [place] Urine 1.025 1.003 - 1.030 LAB URINALYSIS - AUTOMATED METHOD 07/25/2024 1:24 PM [facility] pH, Urine 5.5 5.0 - 8.0 pH LAB URINALYSIS - AUTOMATED METHOD 07/25/2024 1:24 PM [facility] Leukocytes, Urine Moderate(A) Negative LAB URINALYSIS - AUTOMATED METHOD 07/25/2024 1:24 PM [facility] Nitrite, Urine Positive(A) Negative LAB URINALYSIS - AUTOMATED METHOD 07/25/2024 1:24 PM [facility] Protein, Urine >=300(A) <=Trace mg/dL LAB URINALYSIS - AUTOMATED METHOD 07/25/2024 1:24 PM [facility] Glucose, Urine Negative Negative mg/dL LAB URINALYSIS - AUTOMATED METHOD 07/25/2024 1:24 PM [facility] Ketones, Urine Trace(A) Negative mg/dL LAB URINALYSIS - AUTOMATED METHOD 07/25/2024 1:24 PM [facility] Urobilinogen , Urine 1.0 0.2 - 1.0 mg/dL LAB URINALYSIS - AUTOMATED METHOD 07/25/2024 1:24 PM [facility] Bilirubin, Urine Negative Negative LAB URINALYSIS - AUTOMATED METHOD 07/25/2024 1:24 PM [facility] Blood, Urine Large(A) Negative LAB URINALYSIS - AUTOMATED METHOD 07/25/2024 1:24 PM [facility] RBC, Urine >4,000(H) 0 - 4 /HPF LAB URINALYSIS - AUTOMATED METHOD 07/25/2024 1:24 PM [facility] WBC, Urine 1,000.0(H) 0 - 4 /HPF LAB URINALYSIS - AUTOMATED METHOD 07/25/2024 1:24 PM [facility] Squamous Epithelial, Urine >100(H) 0 - 60 /LPF LAB URINALYSIS - AUTOMATED METHOD 07/25/2024 1:24 PM [facility] Bacteria, Urine Many(A) Negative /HPF LAB URINALYSIS - AUTOMATED METHOD 07/25/2024 1:24 PM [facility] Hyaline Casts, Urine 0.00 0 - 3 /LPF LAB URINALYSIS - AUTOMATED METHOD 07/25/2024 1:24 PM [facility] Urine Urine specimen obtained by clean catch procedure / Unknown Non-blood Collection / Unknown 07/24/2024 6:55 PM EST 07/25/2024 10:05 AM EST us Mayo Donnelly MD LAB URINE ORDERABLES Final Res ult Performing Organization Address City/[facility]/ZIP Co de Phone Number [facility] [address] [place] [address], [place] [phone] * Ceron urine culture tube (07/24/2024 6:55 PM EST) Extra Tube Hold for add-ons. 07/25/2024 12:01 PM [facility] Comment:Auto resulted. Urine Urine specimen obtained by clean catch procedure / Unknown Non-blood Collection / Unknown 07/24/2024 6:55 PM EST 07/25/2024 10:05 AM EST us Mayo Donnelly MD LAB URINE ORDERABLES Final Res ult Performing Organization Address City/[facility]/ZIP Co de Phone Number [facility] [address] [place] [address], [place] [phone] documented in this encounter Visit Diagnoses Diagnosis Encounter for other general examination documented in this encounter Care Teams Drapery Head Former Relationship Specialty Start Date End Date Mayo Donnelly MD [address] [place] [address] PCP - General Internal Medicine 11/06/24 documented as of this encounter
--- OUTSIDE RECORDS SUMMARY | 2025-04-13 15:11 | XMS_ITS | Encounter Summary ---
Author Organization [facility] Address [address] [place] [address] Care Team Providers Care Truant Officer Name Role Phone Mayo Donnelly MD Primary Care Provider [phone] Encounter Details Date Type Department Care Team (Late st Contact Info) Description 02/20/2025 Lab Requisition [facility] - Main Lab [address] [place] [address] Odalis Ruiz MD [address] [place] [address] Encounter for other general examination Social History [...] Associated Diagnosis Comments COMPLETE BLOOD COUNT Routine 02/20/2025 5:13 AM EDT Encounter for other general examination documented in this encounter Results * (ABNORMAL) Complete blood count (02/20/2025 5:13 AM EDT) [facility] Signature WBC 6.2 4.8 - 10.8 K/[facility] LAB HEMETOLOGY METHOD 02/20/2025 9:37 AM EDT [facility] LAB RBC 3.90 3.80 - 4.80 M/mcL LAB HEMETOLOGY METHOD 02/20/2025 9:37 AM [facility] LAB Hemoglobin 9.2(L) 11.5 - 16.0 g/dL LAB HEMETOLOGY METHOD 02/20/2025 9:37 AM [facility] LAB Hematocrit 30.0(L) 35.0 - 47.0 % LAB HEMETOLOGY METHOD 02/20/2025 9:37 AM [facility] LAB MCV 76.7(L) 79.0 - 98.0 FL LAB HEMETOLOGY METHOD 02/20/2025 9:37 AM [facility] LAB MCH 23.5(L) 27.0 - 32.0 pcg LAB HEMETOLOGY METHOD 02/20/2025 9:37 AM [facility] LAB MCHC 30.7(L) 32.0 - 37.0 g/dL LAB HEMETOLOGY METHOD 02/20/2025 9:37 AM [facility] LAB RDW 18.3(H) 11.0 - 15.0 % LAB HEMETOLOGY METHOD 02/20/2025 9:37 AM [facility] LAB Platelets 284 130 - 400 K/mcL LAB HEMETOLOGY METHOD 02/20/2025 9:37 AM [facility] LAB MPV 10.6 7.0 - 11.0 FL LAB HEMETOLOGY METHOD 02/20/2025 9:37 AM [facility] LAB NRBC 0.0 <1.0 % LAB HEMETOLOGY METHOD 02/20/2025 9:37 AM [facility] LAB NRBC Absolute 0.00 <0.10 K/mcL LAB HEMETOLOGY METHOD 02/20/2025 9:37 AM [facility] LAB Blood Venous blood specimen / Unknown Venipuncture / Unknown 02/20/2025 5:13 AM EDT 02/20/2025 8:51 AM EDT us Odalis Ruiz MD LAB BLOOD ORDERABLES Fin al Result [facility] ([facility] LAB [address] [place] [address], documented in this encounter Visit Diagnoses Diagnosis Encounter for other general examination documented in this encounter Care Teams Truant Officer Relationship Specialty Start Date End Date Mayo Donnelly MD [address] [place] [address] PCP - General Internal Medicine 11/06/24 documented as of this encounter
--- OUTSIDE RECORDS SUMMARY | 2025-04-13 15:11 | XMS_ITS | Encounter Summary ---
Author Organization [employer] Address [address] [place] [address] 7 [place] [address] Care Team Providers Care Maintenance Shop Welder Name Role Phone Unavailable Primary Care Provider [...] on filedocumented in this encounter Care Teams Maintenance Shop Welder Relationship Specialty Start Date End Date Dr. Meghan Hicks Primary Care Provider 08/17/[address] Andree Lindquist [facility] Primary Care [place], [place] Primary Care Provider 08/17/22 documented as of this encounter
--- OUTSIDE RECORDS SUMMARY | 2025-04-13 15:11 | XMS_ITS | Encounter Summary ---
Author Organization [facility] Address [address] [place] [address] Care Team Providers Care Preschool Paraprofessional Name Role Phone Mayo Donnelly MD Primary Care Provider [phone] Encounter Details Date Type Department Care Team (Late st Contact Info) Description 02/26/2025 Lab Requisition [facility] - Main Lab [address] [place] [address] Kristian Long PA [address] [place], [place] [id number] Encounter for other general examination Social History [...] Associated Diagnosis Comments COMPLETE BLOOD COUNT Routine 02/26/2025 5:32 AM EDT Encounter for other general examination documented in this encounter Results * (ABNORMAL) Complete blood count (02/26/2025 5:32 AM EDT) WBC 8.3 4.8 - 10.8 K/[facility] LAB HEMETOLOGY METHOD 02/26/2025 11:24 AM EDT [facility] LAB RBC 4.00 3.80 - 4.80 M/mcL LAB HEMETOLOGY METHOD 02/26/2025 11:[address] [facility] LAB Hemoglobin 9.6(L) 11.5 - 16.0 g/dL LAB HEMETOLOGY METHOD 02/26/2025 11:[address] [facility] LAB Hematocrit 31.0(L) 35.0 - 47.0 % LAB HEMETOLOGY METHOD 02/26/2025 11:[address] [facility] LAB MCV 77.3(L) 79.0 - 98.0 FL LAB HEMETOLOGY METHOD 02/26/2025 11:[address] [facility] LAB MCH 23.9(L) 27.0 - 32.0 pcg LAB HEMETOLOGY METHOD 02/26/2025 11:[address] [facility] LAB MCHC 31.0(L) 32.0 - 37.0 g/dL LAB HEMETOLOGY METHOD 02/26/2025 11:[address] [facility] LAB RDW 18.2(H) 11.0 - 15.0 % LAB HEMETOLOGY METHOD 02/26/2025 11:[address] [facility] LAB Platelets 297 130 - 400 K/mcL LAB HEMETOLOGY METHOD 02/26/2025 11:[address] [facility] LAB MPV 10.8 7.0 - 11.0 FL LAB HEMETOLOGY METHOD 02/26/2025 11:[address] [facility] LAB NRBC 0.0 <1.0 % LAB HEMETOLOGY METHOD 02/26/2025 11:[address] [facility] LAB NRBC Absolute 0.00 <0.10 K/mcL LAB HEMETOLOGY METHOD 02/26/2025 11:[address] [facility] LAB Blood Venous blood specimen / Unknown Venipuncture / Unknown 02/26/2025 5:32 AM EDT 02/26/2025 10:15 AM EDT us Kristian HENDRICKS LAB BLOOD ORDERABLES Final Result [facility] ([facility]) [facility] [address] [place] [address], [place] [phone] documented in this encounter Visit Diagnoses Diagnosis Encounter for other general examination documented in this encounter Care Teams Preschool Paraprofessional Relationship Specialty Start Date End Date Mayo Donnelly MD [address] [place] [phone] PCP - General Internal Medicine 11/06/24 documented as of this encounter
--- OUTSIDE RECORDS SUMMARY | 2025-04-13 15:11 | XMS_ITS | Encounter Summary ---
Author Organization [employer] Address [address] [place] [address] 7 [place] [address] Care Team Providers Care Aircraft Quality Control Inspector Name Role Phone Unavailable Primary Care Provider [...] on filedocumented in this encounter Care Teams Aircraft Quality Control Inspector Relationship Specialty Start Date End Date Dr. Meghan Hicks Primary Care Provider 08/17/[address] Andree Lindquist [facility] Primary Care [place], [place] Primary Care Provider 08/17/22 documented as of this encounter
--- OUTSIDE RECORDS SUMMARY | 2025-04-13 15:11 | XMS_ITS | Encounter Summary ---
Author Organization [facility] Address [address] [place] [address] Care Team Providers Care Sleeve Separator Name Role Phone Mayo Donnelly MD Primary Care Provider [phone] Encounter Details Date Type Department Care Team (Late st Contact Info) Description 02/27/2025 Lab Requisition [facility] - Main Lab [address] [place] [address] Bridget Moon PA [address] [place] [address] Encounter for other general examination Social History [...] Procedure Name Priority Date/Time Associated Diagnosis Comments COMPREHENSIVE METABOLIC PANEL Routine 02/27/2025 5:11 AM EDT Encounter for other general examination documented in this encounter Results * (ABNORMAL) Comprehensive metabolic panel (02/27/2025 5:11 AM EDT) Sodium 138 133 - 145 mmol/L LAB CHEMISTRY METHOD 02/27/2025 10:07 AM EDT [facility] Potassium 5.1 3.5 - 5.5 mmol/L LAB CHEMISTRY METHOD 02/27/2025 10:07 AM [facility] LAB Chloride 109 96 - 110 mmol/L LAB CHEMISTRY METHOD 02/27/2025 10:07 AM [facility] LAB CO2 22 21 - 32 mmol/L LAB CHEMISTRY METHOD 02/27/2025 10:07 AM [facility] LAB Anion Gap 7 3 - 11 LAB CHEMISTRY METHOD 02/27/2025 10:07 AM [facility] LAB Glucose 82 70 - 100 mg/dL LAB CHEMISTRY METHOD 02/27/2025 10:07 AM [facility] LAB BUN 40(H) 5 - 25 mg/dL LAB CHEMISTRY METHOD 02/27/2025 10:07 AM [facility] LAB Creatinine 1.17(H) 0.50 - 1.10 mg/dL LAB CHEMISTRY METHOD 02/27/2025 10:07 AM [facility] LAB eGFR 48(L) >=60 mL/min/1. 73m2 LAB CHEMISTRY METHOD 02/27/2025 10:07 AM [facility] LAB Comment:Calculation based on the Chronic Kidney Disease Epidemiology Collaboration (CKD-EPI) equation refit without adjustment for race. BUN/Creatinine Ratio 34.2 LAB CHEMISTRY METHOD 02/27/2025 10:07 AM [facility] LAB Calcium 9.4 8.5 - 10.5 mg/dL LAB CHEMISTRY METHOD 02/27/2025 10:07 AM [facility] LAB AST (SGOT) 10 10 - 42 unit/L LAB CHEMISTRY METHOD 02/27/2025 10:07 AM [facility] LAB ALT (SGPT) 17 10 - 60 unit/L LAB CHEMISTRY METHOD 02/27/2025 10:07 AM [facility] LAB Alkaline Phosphatase 77 42 - 121 unit/L LAB CHEMISTRY METHOD 02/27/2025 10:07 AM [facility] LAB Total Protein 6.5 6.0 - 8.0 g/dL LAB CHEMISTRY METHOD 02/27/2025 10:07 AM EDT [facility] LAB Albumin 3.5 3.2 - 5.0 g/dL LAB CHEMISTRY METHOD 02/27/2025 10:07 AM EDT [facility] LAB Total Bilirubin 0.3 0.0 - 1.4 mg/dL LAB CHEMISTRY METHOD 02/27/2025 10:07 AM EDT [facility] LAB Blood Venous blood specimen / Unknown Venipuncture / Unknown 02/27/2025 5:11 AM EDT 02/27/2025 8:52 AM EDT us Bridget HENDRICKS LAB BLOOD ORDERABLES Final Re sult [facility] LAB [address] [place] [address], [place] [phone] documented in this encounter Visit Diagnoses Diagnosis Encounter for other general examination documented in this encounter Care Teams Sleeve Separator Relationship Specialty Start Date End Date Mayo Donnelly MD [address] [place] [address] PCP - General Internal Medicine 11/06/24 documented as of this encounter
--- OUTSIDE RECORDS SUMMARY | 2025-04-13 15:11 | XMS_ITS | Encounter Summary ---
Author Organization [facility] Address [address] [place] [address] Care Team Providers Care Consulting Services Manager Name Role Phone Mayo Donnelly MD Primary Care Provider [phone] Encounter Details Date Type Department Care Team (Late st Contact Info) Description 02/21/2025 Lab Requisition [facility] - Main Lab [address] [facility] [place] [address] Ronald Estrella MD [address] [place] [phone] Encounter for other general examination Social History [...] Priority Date/Time Associated Diagnosis Comments MAGNESIUM Routine 02/21/2025 4:58 AM EDT Encounter for other general examination COMPREHENSIVE METABOLIC PANEL Routine 02/21/2025 4:58 AM EDT Encounter for other general examination documented in this encounter Results * (ABNORMAL) Magnesium (02/21/2025 4:58 AM EDT) Magnesium 1.8(L) 1.9 - 2.6 mg/dL LAB CHEMISTRY METHOD 02/21/2025 12:[address] [facility] LAB Blood Venous blood specimen / Unknown 02/21/2025 4:58 AM EDT 02/21/2025 11:40 AM EDT us Ronald Estrella MD LAB BLOOD ORDERABLES Final Resu lt [facility] [address] [place] [address], * (ABNORMAL) Comprehensive metabolic panel (02/21/2025 4:58 AM EDT) Sodium 138 133 - 145 mmol/L LAB CHEMISTRY METHOD 02/21/2025 12:[address] [facility] LAB Potassium 5.0 3.5 - 5.5 mmol/L LAB CHEMISTRY METHOD 02/21/2025 12:[address] [facility] LAB Chloride 107 96 - 110 mmol/L LAB CHEMISTRY METHOD 02/21/2025 12:[address] [facility] LAB CO2 25 21 - 32 mmol/L LAB CHEMISTRY METHOD 02/21/2025 12:[address] [facility] LAB Anion Gap 6 3 - 11 LAB CHEMISTRY METHOD 02/21/2025 12:[address] [facility] LAB Glucose 113(H) 70 - 100 mg/dL LAB CHEMISTRY METHOD 02/21/2025 12:[address] [facility] BUN 46(H) 5 - 25 mg/dL LAB CHEMISTRY METHOD 02/21/2025 12:[address] [facility] LAB Creatinine 1.31(H) 0.50 - 1.10 mg/dL LAB CHEMISTRY METHOD 02/21/2025 12:[address] [facility] LAB eGFR 42(L) >=60 mL/min/1. 73m2 LAB CHEMISTRY METHOD 02/21/2025 12:47 PM EDT [facility] Comment:Calculation based on the Chronic Kidney Disease Epidemiology Collaboration (CKD-EPI) equation refit without adjustment for race. BUN/Creatinine Ratio 35.1 LAB CHEMISTRY METHOD 02/21/2025 12:[address] [facility] LAB Calcium 9.3 8.5 - 10.5 mg/dL LAB CHEMISTRY METHOD 02/21/2025 12:[address] [facility] AST (SGOT) 6(L) 10 - 42 unit/L LAB CHEMISTRY METHOD 02/21/2025 12:[address] [facility] ALT (SGPT) 22 10 - 60 unit/L LAB CHEMISTRY METHOD 02/21/2025 12:[address] [facility] LAB Alkaline Phosphatase 83 42 - 121 unit/L LAB CHEMISTRY METHOD 02/21/2025 12:[address] [facility] Total Protein 6.6 6.0 - 8.0 g/dL LAB CHEMISTRY METHOD 02/21/2025 12:[address] [facility] Albumin 3.7 3.2 - 5.0 g/dL LAB CHEMISTRY METHOD 02/21/2025 12:[address] [facility] Total Bilirubin 0.2 0.0 - 1.4 mg/dL LAB CHEMISTRY METHOD 02/21/2025 12:[address] [facility] LAB Blood Venous blood specimen / Unknown 02/21/2025 4:58 AM EDT 02/21/2025 11:40 AM EDT us Ronald Estrella MD LAB BLOOD ORDERABLES Final Resu lt [facility] [address] [place] [address], documented in this encounter Visit Diagnoses Diagnosis Encounter for other general examination documented in this encounter Care Teams Consulting Services Manager Relationship Specialty Start Date End Date Mayo Donnelly MD [address] [place] [address] PCP - General Internal Medicine 11/06/24 documented as of this encounter
--- OUTSIDE RECORDS SUMMARY | 2025-04-13 15:11 | XMS_ITS ---
Author Name [facility] Organization Unknown Care Team Organization Name Specialty Phone Email Start Date End Da te [facility] Termed, PROVIDER Primary Care 05/19/202202/09
--- OUTSIDE RECORDS SUMMARY | 2025-04-13 15:11 | XMS_ITS | Encounter Summary ---
Author Organization [facility] Address [address] [place] [address] Care Team Providers Care Tank Farm Gauger Name Role Phone Mayo Donnelly MD Primary Care Provider [phone] Encounter Details Date Type Department Care Team ([facility] st Contact Info) Description 07/16/2024 Lab Requisition [facility] - Main Lab [address] [facility] [place] [address] Mayo Donnelly MD [address] [place] [address] Encounter for other general examination Social History [...] mg/dL LAB CHEMISTRY METHOD 07/16/2024 10:[address] [facility] LAB Blood Venous blood specimen / Unknown Venipuncture / Unknown 07/16/2024 5:30 AM EST 07/16/2024 9:10 AM EST us Mayo Donnelly MD LAB BLOOD ORDERABLES Final Res ult [facility] [address] [place] [address], [place] [phone] * (ABNORMAL) CBC auto differential (07/16/2024 5:30 AM EST) [facility] WBC 5.8 4.8 - 10.8 K/mcL LAB HEMETOLOGY METHOD 07/16/2024 10:[address] [facility] RBC 3.80 3.80 - 4.80 M/mcL LAB HEMETOLOGY METHOD 07/16/2024 10:[address] [facility] LAB Hemoglobin 9.2(L) 11.5 - 16.0 g/dL LAB HEMETOLOGY METHOD 07/16/2024 10:[address] [facility] LAB Hematocrit 30.8(L) 35.0 - 47.0 % LAB HEMETOLOGY METHOD 07/16/2024 10:[address] [facility] LAB MCV 80.8 79.0 - 98.0 FL LAB HEMETOLOGY METHOD 07/16/2024 10:[address] [facility] LAB MCH 24.1(L) 27.0 - 32.0 pcg LAB HEMETOLOGY METHOD 07/16/2024 10:[address] [facility] LAB MCHC 29.9(L) 32.0 - 37.0 g/dL LAB HEMETOLOGY METHOD 07/16/2024 10:[address] [facility] LAB RDW 14.9 11.0 - 15.0 % LAB HEMETOLOGY METHOD 07/16/2024 10:[address] [facility] LAB Platelets 247 130 - 400 K/mcL LAB HEMETOLOGY METHOD 07/16/2024 10:[address] [facility] LAB MPV 10.8 7.0 - 11.0 FL LAB HEMETOLOGY METHOD 07/16/2024 10:[address] [facility] LAB NRBC 0.0 <1.0 % LAB HEMETOLOGY METHOD 07/16/2024 10:[address] [facility] LAB NRBC Absolute 0.00 <0.10 K/mcL LAB HEMETOLOGY METHOD 07/16/2024 10:[address] [facility] Neutrophils Relative 69.6 % LAB HEMETOLOGY METHOD 07/16/2024 10:[address] [facility] Lymphocytes Relative 16.7 % LAB HEMETOLOGY METHOD 07/16/2024 10:[address] [facility] Monocytes Relative 10.1 % LAB HEMETOLOGY METHOD 07/16/2024 10:[address] [facility] Eosinophils Relative 3.1 % LAB HEMETOLOGY METHOD 07/16/2024 10:[address] [facility] Basophils Relative 0.2 % LAB HEMETOLOGY METHOD 07/16/2024 10:[address] [facility] Immature Granulocytes Relative 0.3 % LAB HEMETOLOGY METHOD 07/16/2024 10:[address] [facility] Neutrophils Absolute 4.01 1.50 - 7.00 K/mcL LAB HEMETOLOGY METHOD 07/16/2024 10:[address] [facility] Lymphocytes Absolute 0.96(L) 1.00 - 5.00 K/mcL LAB HEMETOLOGY METHOD 07/16/2024 10:35 AM EST [facility] Monocytes Absolute 0.58 0.20 - 1.00 K/[facility] LAB HEMETOLOGY METHOD 07/16/2024 10:35 AM EST [facility] LAB Eosinophils Absolute 0.18 0.00 - 0.50 K/[facility] LAB HEMETOLOGY METHOD 07/16/2024 10:35 AM EST [facility] Basophils Absolute 0.01 0.00 - 0.20 K/[facility] LAB HEMETOLOGY METHOD 07/16/2024 10:[address] [facility] Immature Granulocytes Absolute 0.02 0.00 - 0.03 K/[facility] LAB HEMETOLOGY METHOD 07/16/2024 10:[address] [facility] Blood Venous blood specimen / Unknown Venipuncture / Unknown 07/16/2024 5:30 AM EST 07/16/2024 9:10 AM EST us Mayo Donnelly MD LAB BLOOD ORDERABLES Final Res ult [facility] [address] [place] [address], * (ABNORMAL) Comprehensive metabolic panel (07/16/2024 5:30 AM EST) Sodium 133 133 - 145 mmol/L LAB CHEMISTRY METHOD 07/16/2024 10:[address] [facility] Potassium 4.6 3.5 - 5.5 mmol/L LAB CHEMISTRY METHOD 07/16/2024 10:[address] [facility] Chloride 103 96 - 110 mmol/L LAB CHEMISTRY METHOD 07/16/2024 10:[address] [facility] CO2 24 21 - 32 mmol/L LAB CHEMISTRY METHOD 07/16/2024 10:[address] [facility] Anion Gap 6 3 - 11 LAB CHEMISTRY METHOD 07/16/2024 10:[address] [facility] Glucose 125(H) 70 - 100 mg/dL LAB CHEMISTRY METHOD 07/16/2024 10:[address] [facility] BUN 33(H) 5 - 25 mg/dL LAB CHEMISTRY METHOD 07/16/2024 10:[address] [facility] Creatinine 1.13(H) 0.50 - 1.10 mg/dL LAB CHEMISTRY METHOD 07/16/2024 10:[address] [facility] LAB eGFR 51(L) >=60 mL/min/1. 73m2 LAB CHEMISTRY METHOD 07/16/2024 10:[address] [facility] Comment:Calculation based on the Chronic Kidney Disease Epidemiology Collaboration (CKD-EPI) equation refit without adjustment for race. BUN/Creatinine Ratio 29.2 LAB CHEMISTRY METHOD 07/16/2024 10:[address] [facility] Calcium 9.0 8.5 - 10.5 mg/dL LAB CHEMISTRY METHOD 07/16/2024 10:[address] [facility] AST (SGOT) 18 10 - 42 unit/L LAB CHEMISTRY METHOD 07/16/2024 10:[address] [facility] ALT (SGPT) 8(L) 10 - 60 unit/L LAB CHEMISTRY METHOD 07/16/2024 10:[address] [facility] Alkaline Phosphatase 61 42 - 121 unit/L LAB CHEMISTRY METHOD 07/16/2024 10:[address] [facility] Total Protein 6.3 6.0 - 8.0 g/dL LAB CHEMISTRY METHOD 07/16/2024 10:[address] [facility] Albumin 3.4 3.2 - 5.0 g/dL LAB CHEMISTRY METHOD 07/16/2024 10:[address] [facility] Total Bilirubin 0.5 0.0 - 1.4 mg/dL LAB CHEMISTRY METHOD 07/16/2024 10:[address] [facility] Blood Venous blood specimen / Unknown Venipuncture / Unknown 07/16/2024 5:30 AM EST 07/16/2024 9:10 AM EST us Mayo Donnelly MD LAB BLOOD ORDERABLES Final Res ult Performing Organization Address [facility]/ZIP Co de Phone Number [facility] [address] [place] [address], documented in this encounter Visit Diagnoses Diagnosis Encounter for other general examination documented in this encounter Care Teams Tank Farm Gauger Relationship Specialty Start Date End Date Mayo Donnelly MD [address] [place] [phone] PCP - General Internal Medicine 11/06/24 documented as of this encounter
--- OUTSIDE RECORDS SUMMARY | 2025-04-13 15:11 | XMS_ITS | Encounter Summary ---
Author Organization [facility] Address [address] [place] [address] Care Team Providers Care Fiberglass Container Winding Operator Name Role Phone Mayo Donnelly MD Primary Care Provider Encounter Details Date Type Department Care Team (Late st Contact Info) Description 02/23/2025 Lab Requisition [facility] - Main Lab [address] [facility] [place] [address] Ronald Estrella MD [address] [place] [phone] Encounter for other general examination Social History [...] Diagnosis Comments CBC WITH AUTO DIFFERENTIAL Routine 02/23/2025 5:26 AM EDT Encounter for other general examination CBC AND DIFFERENTIAL Routine 02/23/2025 5:26 AM EDT Encounter for other general examination MAGNESIUM Routine 02/23/2025 5:26 AM EDT Encounter for other general examination BASIC METABOLIC PANEL Routine 02/23/2025 5:26 AM EDT Encounter for other general examination documented in this encounter Results * (ABNORMAL) CBC auto differential (02/23/2025 5:26 AM EDT) WBC 6.6 4.8 - 10.8 K/mcL LAB [...] LAB HEMETOLOGY METHOD 02/23/2025 11:04 AM EDT [facility] Blood Venous blood specimen / Unknown Venipuncture / Unknown 02/23/2025 5:26 AM EDT 02/23/2025 9:52 AM EDT us Ronald Estrella MD LAB BLOOD ORDERABLES Final Resu lt Performing Organization Address City/[facility]/ZIP Co de Phone Number [facility] [address] [place] [address], [place] [phone] * Magnesium (02/23/2025 5:26 AM EDT) Pathologist [facility] Magnesium 1.9 1.9 - 2.6 mg/dL LAB CHEMISTRY METHOD 02/23/2025 11:35 AM EDT [facility] Blood Venous blood specimen / Unknown Venipuncture / Unknown 02/23/2025 5:26 AM EDT 02/23/2025 9:52 AM EDT us Ronald Estrella MD LAB BLOOD ORDERABLES Final Resu lt Performing Organization Address City/[facility]/ZIP Co de Phone Number [facility] [address] [place] [address], [place] [phone] * (ABNORMAL) Basic metabolic panel (02/23/2025 5:26 AM EDT) Sodium 137 133 - 145 mmol/L LAB CHEMISTRY METHOD 02/23/2025 11:35 AM EDT [facility] Potassium 5.0 3.5 - 5.5 mmol/L LAB CHEMISTRY METHOD 02/23/2025 11:35 AM EDT [facility] Chloride 107 96 - 110 mmol/L LAB CHEMISTRY METHOD 02/23/2025 11:35 AM EDT [facility] CO2 26 21 - 32 mmol/L LAB CHEMISTRY METHOD 02/23/2025 11:35 AM [facility] LAB Anion Gap 4 3 - [...] MD LAB BLOOD ORDERABLES Final Resu lt [facility] [address] [place] [address], [place] [phone] documented in this encounter Visit Diagnoses Diagnosis Encounter for other general examination documented in this encounter Care Teams Fiberglass Container Winding Operator Relationship Specialty Start Date End Date Mayo Donnelly MD [address] [place] [phone] PCP - General Internal Medicine 11/06/24 documented as of this encounter
--- OUTSIDE RECORDS SUMMARY | 2025-04-13 15:11 | XMS_ITS | Encounter Summary ---
Author Organization [facility] Address [address] [place] [address] Care Team Providers Care Spd Manager Name Role Phone Mayo Donnelly MD Primary Care Provider [phone] Encounter Details Date Type Department Care Team (Late st Contact Info) Description 02/28/2025 Lab Requisition [facility] - Main Lab 299 [facility] [place] [address] Bridget Moon PA [address] [place] [phone] Encounter for other general examination Social History [...] examination documented in this encounter Results * Culture urine (02/28/2025 11:43 AM EDT) Pathologist [facility] Culture, Urine 10,000-49,000 CFU/mL Mixed bacterial morphotypes present suggestive of possible contamination during collection. Suggest appropriate recollection if clinically indicated. 03/02/2025 8:41 AM EDT [facility] Urine Urine specimen obtained by clean catch procedure / Unknown Non-blood Collection / Unknown 02/28/2025 11:43 AM EDT 03/01/2025 10:54 AM EDT Bridget HENDRICKS LAB MICROBIOLOGY - GENERAL OR DERABLES Final Result [facility] [address] [place] [address], * (ABNORMAL) Urinalysis with reflex microscopic and culture (02/28/2025 11:43 AM EDT) [facility] Specific [place] Urine 1.016 1.003 - 1.030 LAB URINALYSIS - AUTOMATED METHOD 03/01/2025 10:54 AM [facility] pH, Urine 6.0 5.0 - 8.0 pH LAB URINALYSIS - AUTOMATED METHOD 03/01/2025 10:54 AM [facility] Leukocytes, Urine Large(A) Negative LAB URINALYSIS - AUTOMATED METHOD 03/01/2025 10:54 AM [facility] Nitrite, Urine Positive(A) Negative LAB URINALYSIS - AUTOMATED METHOD 03/01/2025 10:54 AM [facility] Protein, Urine 300(A) <=Trace mg/dL LAB URINALYSIS - AUTOMATED METHOD 03/01/2025 10:54 AM [facility] Glucose, Urine Negative Negative mg/dL LAB URINALYSIS - AUTOMATED METHOD 03/01/2025 10:54 AM [facility] Ketones, Urine Negative Negative mg/dL LAB URINALYSIS - AUTOMATED METHOD 03/01/2025 10:54 AM [facility] Urobilinogen , Urine 0.2 0.2 - 1.0 mg/dL LAB URINALYSIS - AUTOMATED METHOD 03/01/2025 10:54 AM [facility] Bilirubin, Urine Small(A) Negative LAB URINALYSIS - AUTOMATED METHOD 03/01/2025 10:54 AM [facility] Blood, Urine Large(A) Negative LAB URINALYSIS - AUTOMATED METHOD 03/01/2025 10:54 AM [facility] RBC, Urine >4,000(H) 0 - 4 /HPF LAB URINALYSIS - AUTOMATED METHOD 03/01/2025 10:54 AM [facility] WBC, Urine 2,090.6(H) 0 - 4 /HPF LAB URINALYSIS - AUTOMATED METHOD 03/01/2025 10:54 AM [facility] Squamous Epithelial, Urine 46 0 - 60 /LPF LAB URINALYSIS - AUTOMATED METHOD 03/01/2025 10:54 AM [facility] Bacteria, Urine Negative Negative /HPF LAB URINALYSIS - AUTOMATED METHOD 03/01/2025 10:54 AM [facility] Hyaline Casts, Urine >182(H) 0 - 3 /LPF LAB URINALYSIS - AUTOMATED METHOD 03/01/2025 10:54 AM [facility] Urine Urine specimen obtained by clean catch procedure / Unknown Non-blood Collection / Unknown 02/28/2025 11:43 AM EDT 03/01/2025 10:11 AM EDT us Bridget HENDRICKS LAB URINE ORDERABLES Final Re sult [facility] [address] [place] [address], [place] [phone] * Ceron urine culture tube (02/28/2025 11:43 AM EDT) Extra Tube Hold for add-ons. 03/01/2025 12:01 PM EDT [facility] Comment:Auto resulted. Urine Urine specimen obtained by clean catch procedure / Unknown Non-blood Collection / Unknown 02/28/2025 11:43 AM EDT 03/01/2025 10:11 AM EDT us Bridget HENDRICKS LAB URINE ORDERABLES Final Re sult [facility] [address] [place] [address], [place] [phone] documented in this encounter Visit Diagnoses Diagnosis Encounter for other general examination documented in this encounter Care Teams Spd Manager Relationship Specialty Start Date End Date Mayo Donnelly MD [address] [place] [phone] PCP - General Internal Medicine 11/06/24 documented as of this encounter
--- OUTSIDE RECORDS SUMMARY | 2025-04-13 15:12 | XMS_ITS | Encounter Summary ---
Author Organization [facility] Address [address] [place] [address] Care Team Providers Care Die Cast Engineer Name Role Phone Mayo Donnelly MD Primary Care Provider [phone] Encounter Details Date Type Department Care Team (Late st Contact Info) Description 02/16/2025 Lab Requisition [facility] - Main Lab [address] [place] [address] Bridget Moon PA [address] [place] [address] Encounter for other general examination Social History [...] Associated Diagnosis Comments BASIC METABOLIC PANEL Routine 02/16/2025 4:37 AM EDT Encounter for other general examination documented in this encounter Results * (ABNORMAL) Basic metabolic panel (02/16/2025 4:37 AM EDT) Sodium 136 133 - 145 mmol/L LAB CHEMISTRY METHOD 02/16/2025 8:41 AM EDT [facility] Potassium 5.1 3.5 - 5.5 mmol/L LAB CHEMISTRY METHOD 02/16/2025 8:41 AM [facility] Chloride 107 96 - 110 mmol/L LAB CHEMISTRY METHOD 02/16/2025 8:41 AM [facility] CO2 24 21 - 32 mmol/L LAB CHEMISTRY METHOD 02/16/2025 8:41 AM [facility] Anion Gap 5 3 - 11 LAB CHEMISTRY METHOD 02/16/2025 8:41 AM [facility] Glucose 98 70 - 100 mg/dL LAB CHEMISTRY METHOD 02/16/2025 8:41 AM [facility] BUN 48(H) 5 - 25 mg/dL LAB CHEMISTRY METHOD 02/16/2025 8:41 AM [facility] Creatinine 1.28(H) 0.50 - 1.10 mg/dL LAB CHEMISTRY METHOD 02/16/2025 8:41 AM [facility] eGFR 43(L) >=60 mL/min/1. 73m2 LAB CHEMISTRY METHOD 02/16/2025 8:41 AM [facility] Comment:Calculation based on the Chronic Kidney Disease Epidemiology Collaboration (CKD-EPI) equation refit without adjustment for race. BUN/Creatinine Ratio 37.5 LAB CHEMISTRY METHOD 02/16/2025 8:41 AM [facility] Calcium 9.3 8.5 - 10.5 mg/dL LAB CHEMISTRY METHOD 02/16/2025 8:41 AM [facility] Blood Venous blood specimen / Unknown Venipuncture / Unknown 02/16/2025 4:37 AM EDT 02/16/2025 7:35 AM EDT us Bridget HENDRICKS LAB BLOOD ORDERABLES Final Re sult [facility] [address] [place] [address], documented in this encounter Visit Diagnoses Diagnosis Encounter for other general examination documented in this encounter Care Teams Die Cast Engineer Relationship Specialty Start Date End Date Mayo Donnelly MD [address] [place] [phone] PCP - General Internal Medicine 11/06/24 documented as of this encounter
--- OUTSIDE RECORDS SUMMARY | 2025-04-13 15:12 | XMS_ITS | Encounter Summary ---
Author Organization [facility] Address [address] [place] [address] Care Team Providers Care Tong Setter Name Role Phone Mayo Donnelly MD Primary Care Provider [phone] Encounter Details Date Type Department Care Team (Late st Contact Info) Description 02/18/2025 Lab Requisition [facility] - Main Lab 299 [facility] [place] [address] Bridget Moon PA [address] [place] [phone] Encounter for other general examination Social History [...] Diagnosis Comments CBC WITH AUTO DIFFERENTIAL Routine 02/18/2025 5:57 AM EDT Encounter for other general examination CBC AND DIFFERENTIAL Routine 02/18/2025 5:57 AM EDT Encounter for other general examination COMPREHENSIVE METABOLIC PANEL Routine 02/18/2025 5:57 AM EDT Encounter for other general examination documented in this encounter Results * (ABNORMAL) CBC auto differential (02/18/2025 5:57 AM EDT) [facility] WBC 6.6 4.8 - 10.8 K/mcL LAB HEMETOLOGY METHOD 02/18/2025 11:20 AM [facility] RBC 4.00 3.80 - 4.80 M/mcL LAB HEMETOLOGY METHOD 02/18/2025 11:20 AM [facility] Hemoglobin 9.2(L) 11.5 - 16.0 g/dL LAB HEMETOLOGY METHOD 02/18/2025 11:20 AM [facility] Hematocrit 31.2(L) 35.0 - 47.0 % LAB HEMETOLOGY METHOD 02/18/2025 11:20 AM [facility] MCV 79.0 79.0 - 98.0 FL LAB HEMETOLOGY METHOD 02/18/2025 11:20 AM [facility] MCH 23.3(L) 27.0 - 32.0 pcg LAB HEMETOLOGY METHOD 02/18/2025 11:20 AM [facility] MCHC 29.5(L) 32.0 - 37.0 g/dL LAB HEMETOLOGY METHOD 02/18/2025 11:20 AM [facility] RDW 18.2(H) 11.0 - 15.0 % LAB HEMETOLOGY METHOD 02/18/2025 11:20 AM [facility] Platelets 279 130 - 400 K/mcL LAB HEMETOLOGY METHOD 02/18/2025 11:20 AM [facility] MPV 10.7 7.0 - 11.0 FL LAB HEMETOLOGY METHOD 02/18/2025 11:20 AM [facility] NRBC 0.0 <1.0 % LAB HEMETOLOGY METHOD 02/18/2025 11:20 AM [facility] NRBC Absolute 0.00 <0.10 K/mcL LAB HEMETOLOGY METHOD 02/18/2025 11:20 AM [facility] Neutrophils Relative 69.2 % LAB HEMETOLOGY METHOD 02/18/2025 11:20 AM [facility] Lymphocytes Relative 17.2 % LAB HEMETOLOGY METHOD 02/18/2025 11:20 AM [facility] Monocytes Relative 9.4 % LAB HEMETOLOGY METHOD 02/18/2025 11:20 AM [facility] Eosinophils Relative 3.6 % LAB HEMETOLOGY METHOD 02/18/2025 11:20 AM [facility] Basophils Relative 0.3 % LAB HEMETOLOGY METHOD 02/18/2025 11:20 AM [facility] Immature Granulocytes Relative 0.3 % LAB HEMETOLOGY METHOD 02/18/2025 11:20 AM [facility] Neutrophils Absolute 4.59 1.50 - 7.00 K/mcL LAB HEMETOLOGY METHOD 02/18/2025 11:20 AM [facility] Lymphocytes Absolute 1.14 1.00 - 5.00 K/mcL LAB HEMETOLOGY METHOD 02/18/2025 11:20 AM [facility] Monocytes Absolute 0.62 0.20 - 1.00 K/mcL LAB HEMETOLOGY METHOD 02/18/2025 11:20 AM [facility] Eosinophils Absolute 0.24 0.00 - 0.50 K/mcL LAB HEMETOLOGY METHOD 02/18/2025 11:20 AM [facility] Basophils Absolute 0.02 0.00 - 0.20 K/mcL LAB HEMETOLOGY METHOD 02/18/2025 11:20 AM [facility] Immature Granulocytes Absolute 0.02 0.00 - 0.03 K/mcL LAB HEMETOLOGY METHOD 02/18/2025 11:20 AM [facility] Blood Venous blood specimen / Unknown Venipuncture / Unknown 02/18/2025 5:57 AM EDT 02/18/2025 10:16 AM EDT us Bridget HENDRICKS LAB BLOOD ORDERABLES Final Re sult [facility] [address] [place] [address], * (ABNORMAL) Comprehensive metabolic panel (02/18/2025 5:57 AM EDT) Sodium 138 133 - 145 mmol/L LAB CHEMISTRY METHOD 02/18/2025 11:35 AM [facility] Potassium 5.4 3.5 - 5.5 mmol/L LAB CHEMISTRY METHOD 02/18/2025 11:35 AM [facility] Chloride 108 96 - 110 mmol/L LAB CHEMISTRY METHOD 02/18/2025 11:35 AM [facility] CO2 23 21 - 32 mmol/L LAB CHEMISTRY METHOD 02/18/2025 11:35 AM [facility] Anion Gap 7 3 - 11 LAB CHEMISTRY METHOD 02/18/2025 11:35 AM [facility] Glucose 136(H) 70 - 100 mg/dL LAB CHEMISTRY METHOD 02/18/2025 11:35 AM [facility] BUN 42(H) 5 - 25 mg/dL LAB CHEMISTRY METHOD 02/18/2025 11:35 AM [facility] Creatinine 1.03 0.50 - 1.10 mg/dL LAB CHEMISTRY METHOD 02/18/2025 11:35 AM [facility] eGFR 56(L) >=60 mL/min/1. 73m2 LAB CHEMISTRY METHOD 02/18/2025 11:35 AM [facility] Comment:Calculation based on the Chronic Kidney Disease Epidemiology Collaboration (CKD-EPI) equation refit without adjustment for race. BUN/Creatinine Ratio 40.8 LAB CHEMISTRY METHOD 02/18/2025 11:35 AM [facility] Calcium 9.6 8.5 - 10.5 mg/dL LAB CHEMISTRY METHOD 02/18/2025 11:35 AM [facility] AST (SGOT) 6(L) 10 - 42 unit/L LAB CHEMISTRY METHOD 02/18/2025 11:35 AM [facility] ALT (SGPT) 21 10 - 60 unit/L LAB CHEMISTRY METHOD 02/18/2025 11:35 AM [facility] Alkaline Phosphatase 88 42 - 121 unit/L LAB CHEMISTRY METHOD 02/18/2025 11:35 AM [facility] Total Protein 6.7 6.0 - 8.0 g/dL LAB CHEMISTRY METHOD 02/18/2025 11:35 AM [facility] Albumin 3.6 3.2 - 5.0 g/dL LAB CHEMISTRY METHOD 02/18/2025 11:35 AM [facility] Total Bilirubin 0.2 0.0 - 1.4 mg/dL LAB CHEMISTRY METHOD 02/18/2025 11:35 AM [facility] Blood Venous blood specimen / Unknown Venipuncture / Unknown 02/18/2025 5:57 AM EDT 02/18/2025 10:16 AM EDT us Bridget HENDRICKS LAB BLOOD ORDERABLES Final Re sult [facility] [address] [place] [address], documented in this encounter Visit Diagnoses Diagnosis Encounter for other general examination documented in this encounter Care Teams Tong Setter Relationship Specialty Start Date End Date Mayo Donnelly MD [address] [place] [phone] PCP - General Internal Medicine 11/06/24 documented as of this encounter
--- OUTSIDE RECORDS SUMMARY | 2025-04-13 15:12 | XMS_ITS | Encounter Summary ---
Author Organization [facility] Address [address] [place] [address] Care Team Providers Care Gum Sprayer Name Role Phone Mayo Donnelly MD Primary Care Provider [phone] Encounter Details Date Type Department Care Team (Late st Contact Info) Description 07/24/[address] [facility] - Main Lab 299 [facility] [place] [address] Mayo Donnelly MD [address] [place] [phone] Encounter for other general examination Social History [...] AM EST) WBC 6.4 4.8 - 10.8 [facility] LAB HEMETOLOGY METHOD 07/24/2024 11:31 AM [facility] RBC 3.90 3.80 - 4.80 M/mcL LAB HEMETOLOGY METHOD 07/24/2024 11:31 AM [facility] Hemoglobin 9.4(L) 11.5 - 16.0 g/dL LAB HEMETOLOGY METHOD 07/24/2024 11:31 AM [facility] Hematocrit 31.7(L) 35.0 - 47.0 % LAB HEMETOLOGY METHOD 07/24/2024 11:31 AM [facility] MCV 81.1 79.0 - 98.0 FL LAB HEMETOLOGY METHOD 07/24/2024 11:31 AM [facility] MCH 24.0(L) 27.0 - 32.0 pcg LAB HEMETOLOGY METHOD 07/24/2024 11:31 AM [facility] MCHC 29.7(L) 32.0 - 37.0 g/dL LAB HEMETOLOGY METHOD 07/24/2024 11:31 AM [facility] RDW 15.5(H) 11.0 - 15.0 % LAB HEMETOLOGY METHOD 07/24/2024 11:31 AM [facility] Platelets 315 130 - 400 K/mcL LAB HEMETOLOGY METHOD 07/24/2024 11:31 AM [facility] MPV 10.5 7.0 - 11.0 FL LAB HEMETOLOGY METHOD 07/24/2024 11:31 AM [facility] NRBC 0.0 <1.0 % LAB HEMETOLOGY METHOD 07/24/2024 11:31 AM [facility] NRBC Absolute 0.00 <0.10 K/mcL LAB HEMETOLOGY METHOD 07/24/2024 11:31 AM [facility] Blood Venous blood specimen / Unknown Venipuncture / Unknown 07/24/2024 5:17 AM EST 07/24/2024 10:19 AM EST us Mayo Donnelly MD LAB BLOOD ORDERABLES Final Res ult [facility] [address] [place] [address], [place] [phone] * (ABNORMAL) Comprehensive metabolic panel (07/24/2024 5:17 AM EST) Sodium 132(L) 133 - 145 mmol/L LAB CHEMISTRY METHOD 07/24/2024 12:19 PM [facility] Potassium 5.7(H) 3.5 - 5.5 mmol/L LAB CHEMISTRY METHOD 07/24/2024 12:19 PM [facility] Chloride 108 96 - 110 mmol/L LAB CHEMISTRY METHOD 07/24/2024 12:19 PM [facility] CO2 18(L) 21 - 32 mmol/L LAB CHEMISTRY METHOD 07/24/2024 12:19 PM [facility] Anion Gap 6 3 - 11 LAB CHEMISTRY METHOD 07/24/2024 12:19 PM [facility] Glucose 90 70 - 100 mg/dL LAB CHEMISTRY METHOD 07/24/2024 12:19 PM [facility] BUN 74(H) 5 - 25 mg/dL LAB CHEMISTRY METHOD 07/24/2024 12:19 PM [facility] Creatinine 1.54(H) 0.50 - 1.10 mg/dL LAB CHEMISTRY METHOD 07/24/2024 12:19 PM [facility] eGFR 35(L) >=60 mL/min/1. 73m2 LAB CHEMISTRY METHOD 07/24/2024 12:19 PM [facility] Comment:Calculation based on the Chronic Kidney Disease Epidemiology Collaboration (CKD-EPI) equation refit without adjustment for race. BUN/Creatinine Ratio 48.1 LAB CHEMISTRY METHOD 07/24/2024 12:19 PM [facility] Calcium 9.3 8.5 - 10.5 mg/dL LAB CHEMISTRY METHOD 07/24/2024 12:19 PM [facility] AST (SGOT) 20 10 - 42 unit/L LAB CHEMISTRY METHOD 07/24/2024 12:19 PM [facility] ALT (SGPT) 15 10 - 60 unit/L LAB CHEMISTRY METHOD 07/24/2024 12:19 PM [facility] Alkaline Phosphatase 72 42 - 121 unit/L LAB CHEMISTRY METHOD 07/24/2024 12:19 PM [facility] Total Protein 6.7 6.0 - 8.0 g/dL LAB CHEMISTRY METHOD 07/24/2024 12:19 PM [facility] Albumin 3.6 3.2 - 5.0 g/dL LAB CHEMISTRY METHOD 07/24/2024 12:19 PM [facility] Total Bilirubin 0.3 0.0 - 1.4 mg/dL LAB CHEMISTRY METHOD 07/24/2024 12:19 PM [facility] Blood Venous blood specimen / Unknown Venipuncture / Unknown 07/24/2024 5:17 AM EST 07/24/2024 10:19 AM EST us Mayo Donnelly MD LAB BLOOD ORDERABLES Final Res ult [facility] [address] [place] [address], [place] [phone] documented in this encounter Visit Diagnoses Diagnosis Encounter for other general examination documented in this encounter Care Teams Gum Sprayer Relationship Specialty Start Date End Date Mayo Donnelly MD [address] [place] [phone] PCP - General Internal Medicine 11/06/24 documented as of this encounter
--- OUTSIDE RECORDS SUMMARY | 2025-04-13 15:12 | XMS_ITS | Encounter Summary ---
Author Organization [facility] Address [address] [place] [address] Care Team Providers Care Telegraph Installer Name Role Phone Mayo Donnelly MD Primary Care Provider [phone] Encounter Details Date Type Department Care Team (Late st Contact Info) Description 02/15/2025 Lab Requisition [facility] - Main Lab 299 [facility] [place] [address] Bridget Moon PA [address] [place] [phone] Encounter for other general examination Social History [...] PM EDT Encounter for other general examination documented in this encounter Results * Culture urine (02/15/2025 2:38 PM EDT) [place] [facility] Culture, Urine No growth 02/17/2025 9:16 AM EDT [facility] Urine Urine specimen from urethra / Unknown Non-blood Collection / Unknown 02/15/2025 2:38 PM EDT 02/16/2025 8:46 AM EDT Bridget HENDRICKS LAB MICROBIOLOGY - GENERAL OR DERABLES Final Result [facility] [address] [place] [address], [place] [phone] * (ABNORMAL) Urinalysis with reflex microscopic and culture (02/15/2025 2:38 PM EDT) [facility] Specific [place] Urine 1.020 1.003 - 1.030 LAB URINALYSIS - AUTOMATED METHOD 02/16/2025 8:46 AM [facility] pH, Urine 6.0 5.0 - 8.0 pH LAB URINALYSIS - AUTOMATED METHOD 02/16/2025 8:46 AM [facility] Leukocytes, Urine Moderate(A) Negative LAB URINALYSIS - AUTOMATED METHOD 02/16/2025 8:46 AM [facility] Nitrite, Urine Negative Negative LAB URINALYSIS - AUTOMATED METHOD 02/16/2025 8:46 AM [facility] Protein, Urine 300(A) <=Trace mg/dL LAB URINALYSIS - AUTOMATED METHOD 02/16/2025 8:46 AM [facility] Glucose, Urine Negative Negative mg/dL LAB URINALYSIS - AUTOMATED METHOD 02/16/2025 8:46 AM [facility] Ketones, Urine Negative Negative mg/dL LAB URINALYSIS - AUTOMATED METHOD 02/16/2025 8:46 AM [facility] Urobilinogen , Urine 0.2 0.2 - 1.0 mg/dL LAB URINALYSIS - AUTOMATED METHOD 02/16/2025 8:46 AM [facility] Bilirubin, Urine Negative Negative LAB URINALYSIS - AUTOMATED METHOD 02/16/2025 8:46 AM [facility] Blood, Urine Large(A) Negative LAB URINALYSIS - AUTOMATED METHOD 02/16/2025 8:46 AM [facility] RBC, Urine 3,705.7(H) 0 - 4 /HPF LAB URINALYSIS - AUTOMATED METHOD 02/16/2025 8:46 AM [facility] WBC, Urine 3,006.8(H) 0 - 4 /HPF LAB URINALYSIS - AUTOMATED METHOD 02/16/2025 8:46 AM [facility] Squamous Epithelial, Urine 100(H) 0 - 60 /LPF LAB URINALYSIS - AUTOMATED METHOD 02/16/2025 8:46 AM [facility] Bacteria, Urine Negative Negative /HPF LAB URINALYSIS - AUTOMATED METHOD 02/16/2025 8:46 AM [facility] Hyaline Casts, Urine 0.0 0 - 3 /LPF LAB URINALYSIS - AUTOMATED METHOD 02/16/2025 8:46 AM [facility] Yeast, Urine Present(A) None /HPF LAB URINALYSIS - AUTOMATED METHOD 02/16/2025 8:46 AM [facility] Urine Urine specimen from urethra / Unknown Non-blood Collection / Unknown 02/15/2025 2:38 PM EDT 02/16/2025 7:52 AM EDT us Bridget HENDRICKS LAB URINE ORDERABLES Final Re sult [facility] [address] [place] [address], [place] [phone] * Ceron urine culture tube (02/15/2025 2:38 PM EDT) Extra Tube Hold for add-ons. 02/16/2025 9:01 AM EDT [facility] Comment:Auto resulted. Urine Urine specimen from urethra / Unknown Non-blood Collection / Unknown 02/15/2025 2:38 PM EDT 02/16/2025 7:52 AM EDT us Bridget HENDRICKS LAB URINE ORDERABLES Final Re sult [facility] [address] [place] [address], [place] [phone] documented in this encounter Visit Diagnoses Diagnosis Encounter for other general examination documented in this encounter Care Teams Telegraph Installer Relationship Specialty Start Date End Date Mayo Donnelly MD [address] [place] [phone] PCP - General Internal Medicine 11/06/24 documented as of this encounter
--- OUTSIDE RECORDS SUMMARY | 2025-04-13 15:12 | XMS_ITS | Encounter Summary ---
Author Organization [facility] Address [address] [place] [address] Care Team Providers Care Refinery Operator Vapor Recovery Unit Name Role Phone Mayo Donnelly MD Primary Care Provider [phone] Encounter Details Date Type Department Care Team (Late st Contact Info) Description 02/15/2025 Lab Requisition [facility] - Main Lab [address] [facility] [place] [address] Estevan Varela PA [address] [phone] Encounter for other general examination Social History [...] Diagnosis Comments CBC WITH AUTO DIFFERENTIAL Routine 02/15/2025 4:49 AM EDT Encounter for other general examination CBC AND DIFFERENTIAL Routine 02/15/2025 4:49 AM EDT Encounter for other general examination MAGNESIUM Routine 02/15/2025 4:49 AM EDT Encounter for other general examination COMPREHENSIVE METABOLIC PANEL Routine 02/15/2025 4:49 AM EDT Encounter for other general examination documented in this encounter Results * (ABNORMAL) CBC auto differential (02/15/2025 4:49 AM EDT) [facility] WBC 7.0 4.8 - 10.8 K/mcL LAB HEMETOLOGY METHOD 02/15/2025 12:13 PM [facility] RBC 4.00 3.80 - 4.80 M/mcL LAB HEMETOLOGY METHOD 02/15/2025 12:13 PM [facility] Hemoglobin 9.2(L) 11.5 - 16.0 g/dL LAB HEMETOLOGY METHOD 02/15/2025 12:13 PM [facility] Hematocrit 31.5(L) 35.0 - 47.0 % LAB HEMETOLOGY METHOD 02/15/2025 12:13 PM [facility] MCV 78.6(L) 79.0 - 98.0 FL LAB HEMETOLOGY METHOD 02/15/2025 12:13 PM [facility] MCH 22.9(L) 27.0 - 32.0 pcg LAB HEMETOLOGY METHOD 02/15/2025 12:13 PM [facility] MCHC 29.2(L) 32.0 - 37.0 g/dL LAB HEMETOLOGY METHOD 02/15/2025 12:13 PM [facility] RDW 18.6(H) 11.0 - 15.0 % LAB HEMETOLOGY METHOD 02/15/2025 12:13 PM [facility] Platelets 274 130 - 400 K/mcL LAB HEMETOLOGY METHOD 02/15/2025 12:13 PM [facility] MPV 10.3 7.0 - 11.0 FL LAB HEMETOLOGY METHOD 02/15/2025 12:13 PM [facility] NRBC 0.0 <1.0 % LAB HEMETOLOGY METHOD 02/15/2025 12:13 PM [facility] NRBC Absolute 0.00 <0.10 K/mcL LAB HEMETOLOGY METHOD 02/15/2025 12:13 PM [facility] Neutrophils Relative 64.7 % LAB HEMETOLOGY METHOD 02/15/2025 12:13 PM [facility] Lymphocytes Relative 22.6 % LAB HEMETOLOGY METHOD 02/15/2025 12:13 PM [facility] Monocytes Relative 9.2 % LAB HEMETOLOGY METHOD 02/15/2025 12:13 PM [facility] Eosinophils Relative 2.9 % LAB HEMETOLOGY METHOD 02/15/2025 12:13 PM [facility] Basophils Relative 0.3 % LAB HEMETOLOGY METHOD 02/15/2025 12:13 PM [facility] Immature Granulocytes Relative 0.3 % LAB HEMETOLOGY METHOD 02/15/2025 12:13 PM [facility] Neutrophils Absolute 4.52 1.50 - 7.00 K/mcL LAB HEMETOLOGY METHOD 02/15/2025 12:13 PM [facility] Lymphocytes Absolute 1.58 1.00 - 5.00 K/mcL LAB HEMETOLOGY METHOD 02/15/2025 12:13 PM [facility] Monocytes Absolute 0.64 0.20 - 1.00 K/mcL LAB HEMETOLOGY METHOD 02/15/2025 12:13 PM [facility] Eosinophils Absolute 0.20 0.00 - 0.50 K/mcL LAB HEMETOLOGY METHOD 02/15/2025 12:13 PM [facility] Basophils Absolute 0.02 0.00 - 0.20 K/mcL LAB HEMETOLOGY METHOD 02/15/2025 12:13 PM [facility] Immature Granulocytes Absolute 0.02 0.00 - 0.03 K/mcL LAB HEMETOLOGY METHOD 02/15/2025 12:13 PM EDT [facility] Blood Venous blood specimen / Unknown Venipuncture / Unknown 02/15/2025 4:49 AM EDT 02/15/2025 10:20 AM EDT Estevan HENDRICKS LAB BLOOD ORDERABLES Final R esult Performing Organization Address [facility]/ZIP Co de Phone Number [facility] [address] [place] [address], [place] [phone] * Magnesium (02/15/2025 4:49 AM EDT) Magnesium 1.9 1.9 - 2.6 mg/dL LAB CHEMISTRY METHOD 02/15/2025 12:37 PM EDT [facility] Blood Venous blood specimen / Unknown Venipuncture / Unknown 02/15/2025 4:49 AM EDT 02/15/2025 10:20 AM EDT Estevan HENDRICKS LAB BLOOD ORDERABLES Final R esult Performing Organization Address [facility]/ZIP Co de Phone Number [facility] [address] [place] [address], [place] [phone] * (ABNORMAL) Comprehensive metabolic panel (02/15/2025 4:49 AM EDT) Sodium 138 133 - 145 mmol/L LAB CHEMISTRY METHOD 02/15/2025 12:44 PM EDT [facility] Potassium 4.7 3.5 - 5.5 mmol/L LAB CHEMISTRY METHOD 02/15/2025 12:44 PM EDT [facility] Chloride 106 96 - 110 mmol/L LAB CHEMISTRY METHOD 02/15/2025 12:44 PM EDT [facility] CO2 24 21 - 32 mmol/L LAB CHEMISTRY METHOD 02/15/2025 12:44 PM [facility] Anion Gap 8 3 - 11 LAB CHEMISTRY METHOD 02/15/2025 12:44 PM [facility] Glucose 93 70 - 100 mg/dL LAB CHEMISTRY METHOD 02/15/2025 12:44 PM [facility] BUN 44(H) 5 - 25 mg/dL LAB CHEMISTRY METHOD 02/15/2025 12:44 PM [facility] Creatinine 1.36(H) 0.50 - 1.10 mg/dL LAB CHEMISTRY METHOD 02/15/2025 12:44 PM [facility] eGFR 40(L) >=60 mL/min/1. 73m2 LAB CHEMISTRY METHOD 02/15/2025 12:44 PM [facility] Comment:Calculation based on the Chronic Kidney Disease Epidemiology Collaboration (CKD-EPI) equation refit without adjustment for race. BUN/Creatinine Ratio 32.4 LAB CHEMISTRY METHOD 02/15/2025 12:44 PM [facility] Calcium 9.3 8.5 - 10.5 mg/dL LAB CHEMISTRY METHOD 02/15/2025 12:44 PM [facility] AST (SGOT) 18 10 - 42 unit/L LAB CHEMISTRY METHOD 02/15/2025 12:44 PM [facility] ALT (SGPT) 20 10 - 60 unit/L LAB CHEMISTRY METHOD 02/15/2025 12:44 PM [facility] Alkaline Phosphatase 81 42 - 121 unit/L LAB CHEMISTRY METHOD 02/15/2025 12:44 PM [facility] Total Protein 6.6 6.0 - 8.0 g/dL LAB CHEMISTRY METHOD 02/15/2025 12:44 PM [facility] Albumin 3.5 3.2 - 5.0 g/dL LAB CHEMISTRY METHOD 02/15/2025 12:44 PM [facility] Total Bilirubin 0.2 0.0 - 1.4 mg/dL LAB CHEMISTRY METHOD 02/15/2025 12:44 PM EDT [facility] Blood Venous blood specimen / Unknown Venipuncture / Unknown 02/15/2025 4:49 AM EDT 02/15/2025 10:20 AM EDT us Estevan HENDRICKS LAB BLOOD ORDERABLES Final R esult [facility] [address] [place] [address], [place] [phone] documented in this encounter Visit Diagnoses Diagnosis Encounter for other general examination documented in this encounter Care Teams Refinery Operator Vapor Recovery Unit Relationship Specialty Start Date End Date Mayo Donnelly MD [address] [place] [id number] PCP - General Internal Medicine 11/06/24 documented as of this encounter
--- OUTSIDE RECORDS SUMMARY | 2025-04-13 15:12 | XMS_ITS | Encounter Summary ---
Author Organization [facility] Address [address] [place] [address] Care Team Providers Care Before School Name Role Phone Mayo Donnelly MD Primary Care Provider [phone] Encounter Details Date Type Department Care Team (Late st Contact Info) Description 07/21/2024 Lab Requisition [facility] - Main Lab [address] [facility] [place] [address] Mayo Donnelly MD [address] [place] [id number] Encounter for other general examination Social History [...] AM EST) WBC 6.6 4.8 - 10.8 K/[facility] LAB HEMETOLOGY METHOD 07/21/2024 8:[address] [facility] RBC 3.90 3.80 - 4.80 M/mcL LAB HEMETOLOGY METHOD 07/21/2024 8:[address] [facility] Hemoglobin 9.4(L) 11.5 - 16.0 g/dL LAB HEMETOLOGY METHOD 07/21/2024 8:[address] [facility] Hematocrit 31.3(L) 35.0 - 47.0 % LAB HEMETOLOGY METHOD 07/21/2024 8:[address] [facility] MCV 80.3 79.0 - 98.0 FL LAB HEMETOLOGY METHOD 07/21/2024 8:[address] [facility] MCH 24.1(L) 27.0 - 32.0 pcg LAB HEMETOLOGY METHOD 07/21/2024 8:[address] [facility] MCHC 30.0(L) 32.0 - 37.0 g/dL LAB HEMETOLOGY METHOD 07/21/2024 8:[address] [facility] RDW 15.4(H) 11.0 - 15.0 % LAB HEMETOLOGY METHOD 07/21/2024 8:[address] [facility] Platelets 281 130 - 400 K/mcL LAB HEMETOLOGY METHOD 07/21/2024 8:[address] [facility] MPV 10.5 7.0 - 11.0 FL LAB HEMETOLOGY METHOD 07/21/2024 8:[address] [facility] NRBC 0.0 <1.0 % LAB HEMETOLOGY METHOD 07/21/2024 8:[address] [facility] NRBC Absolute 0.00 <0.10 K/mcL LAB HEMETOLOGY METHOD 07/21/2024 8:[address] [facility] Blood Venous blood specimen / Unknown Venipuncture / Unknown 07/21/2024 5:00 AM EST 07/21/2024 7:36 AM EST us Mayo Donnelly MD LAB BLOOD ORDERABLES Final Res ult [facility] [address] [place] [address], [place] [phone] * (ABNORMAL) Comprehensive metabolic panel (07/21/2024 5:00 AM EST) Sodium 133 133 - 145 mmol/L LAB CHEMISTRY METHOD 07/21/2024 8:[address] [facility] Potassium 5.5 3.5 - 5.5 mmol/L LAB CHEMISTRY METHOD 07/21/2024 8:[address] [facility] Chloride 103 96 - 110 mmol/L LAB CHEMISTRY METHOD 07/21/2024 8:[address] [facility] CO2 24 21 - 32 mmol/L LAB CHEMISTRY METHOD 07/21/2024 8:[address] [facility] Anion Gap 6 3 - 11 LAB CHEMISTRY METHOD 07/21/2024 8:[address] [facility] Glucose 103(H) 70 - 100 mg/dL LAB CHEMISTRY METHOD 07/21/2024 8:[address] [facility] BUN 54(H) 5 - 25 mg/dL LAB CHEMISTRY METHOD 07/21/2024 8:[address] [facility] Comment:Results verified by repeat testing Creatinine 1.34(H) 0.50 - 1.10 mg/dL LAB CHEMISTRY METHOD 07/21/2024 8:[address] [facility] eGFR 41(L) >=60 mL/min/1. 73m2 LAB CHEMISTRY METHOD 07/21/2024 8:[address] [facility] Comment:Calculation based on the Chronic Kidney Disease Epidemiology Collaboration (CKD-EPI) equation refit without adjustment for race. BUN/Creatinine Ratio 40.3 LAB CHEMISTRY METHOD 07/21/2024 8:[address] [facility] Calcium 9.8 8.5 - 10.5 mg/dL LAB CHEMISTRY METHOD 07/21/2024 8:[address] [facility] AST (SGOT) 19 10 - 42 unit/L LAB CHEMISTRY METHOD 07/21/2024 8:[address] [facility] ALT (SGPT) 16 10 - 60 unit/L LAB CHEMISTRY METHOD 07/21/2024 8:[address] [facility] Alkaline Phosphatase 68 42 - 121 unit/L LAB CHEMISTRY METHOD 07/21/2024 8:[address] [facility] Total Protein 6.8 6.0 - 8.0 g/dL LAB CHEMISTRY METHOD 07/21/2024 8:[address] [facility] Albumin 3.5 3.2 - 5.0 g/dL LAB CHEMISTRY METHOD 07/21/2024 8:[address] [facility] Total Bilirubin 0.3 0.0 - 1.4 mg/dL LAB CHEMISTRY METHOD 07/21/2024 8:[address] [facility] Blood Venous blood specimen / Unknown Venipuncture / Unknown 07/21/2024 5:00 AM EST 07/21/2024 7:36 AM EST us Mayo Donnelly MD LAB BLOOD ORDERABLES Final Res ult [facility] [address] [place] [address], [place] [phone] documented in this encounter Visit Diagnoses Diagnosis Encounter for other general examination documented in this encounter Care Teams Before School Relationship Specialty Start Date End Date Mayo Donnelly MD [address] [place] [phone] PCP - General Internal Medicine 11/06/24 documented as of this encounter
--- NOTE | 2025-04-13 15:23 | A.OFFPC_ITS ---
Intake Visit Reasons: [facility] 03/22-03/26 Allergies cefdinir Allergy (Unknown, Verified 11/20/24 08:35) Rash Sulfa (Sulfonamide Antibiotics) Allergy (Unknown, Verified 11/20/24 08:35) Itching trimethoprim Allergy (Unknown, Verified 11/20/24 08:35) Rash Tobacco use date assessed: 11/20/24 Dental Screening Dental Screen Date: 11/30/23 HPI HPI Comments History of Present Illness Details 79 y/o female with a past medical histor y of parkinsons, diabetes, depression, asthma/copd, OAB, recurrent UTI presenting for hospital discharge follow up Since last visit patient suffered another CVA at the end of February.Patient was hospitalized from 03/22-03/26/25 (and 03/16-03/18/25-fall, left shoulder pain, UTI). She presented on the with dysuria, weakness, mild confusion. had reported left sided CP that had resolved. Mild AUGUSTINE, trop elevated then stable. Urine culture highly resistant Enterococcus faecium sensitive to Vancomycin. ID consult-received 5 days IV abx. Blood glucose was running higher than usual for patient. She is unable to check fingerstick glucose without an aide-she has weakness due to CVA and tremors due to parkinson. She should be a candidate for CGM 10/27-11/16/24.-urosepsis [facility] She was hospitalized 07/11-07/15/24 at [facility]. She underwent scheduled TAVR for severe aortic stenosis. Dr Mchugh, Dr Nicholas. Course was complicated by CVA-she developed acute left sided weakness. MRI showed evidence of embolic CVA. She was discharged to [facility]. Still getting PT/OT/Speech. She has made good gains with therapy and has gotten a lot of mobility back. Neuro: Recent CVA as above. Saw [facility] in September. Continues to follow with neurology for Parkinsons in [facility]. Stable parkinsons. CV: TAVR. Follow up cardiology -had Aug 07 and seeing again Aug 17 Depression is well controlled on sertraline Diabetes-see above. continues glipizide. On ARB. utd eye exam. GI: Follows with Dr Pereira. History of biliary cirrhosis, diverticulosis. Sees 2x/year. Uro: Following with urogynecology. Has appt with [facility] ROS see HPI PHYSICAL EXAM: GENERAL: Alert and oriented x 3. NAD EYES: EOMI. Anicteric. HENT: Moist mucous membranes. No scleral icterus. No cervical lymphadenopathy. LUNGS: Clear to auscultation bilaterally. CARDIOVASCULAR: Regular rate and rhythm. + murmur. No JVD. ABDOMEN: Soft, non-tender +bs EXTREMITIES: No edema. Non-tender. SKIN: No rashes or lesions. Warm. NEUROLOGIC: stable left sided weakness. resting tremor PSYCHIATRIC: Cooperative. Appropriate mood and affect [facility] Medical History Type 2 diabetes mellitus Spinal stenosis Seasonal allergies Parkinson disease Muscle cramps Moderate aortic stenosis (~11/30/23) Hypertension History of DVT (deep vein thrombosis) High cholesterol Frequent UTI Dysphagia COVID-19 Atypical chest pain Arthritis Anxiety Angina pectoris Surgical History S/P TVR (tricuspid valve replacement) Family History Father Substance abuse Alcoholism Social History Housing: Condominium Alcohol intake: former Patient Tobacco Use Status: Former Tobacco user Cigarette Packs Per Day: 1.5 Years Smoked: 34 years e-Cigarette/Vaping Use: Never Used Second Hand Smoke Exposure: Yes service: No Current occupational status: retired Cognitive needs: No Hearing needs: No Vision needs: Yes (reading glasses) Questionnaire Thrive Questionnaire Date Thrive assessed: 08/15/24 I am a: Parent/Caregiver What is your living situation today?: I have a steady place to live Within the past 12 months, did the food you bought not last and you didn't have the money to get more?: Never true Within the past 12 months, did you worry whether your food would run out before you got money to buy more?: Never true Do you have trouble paying for medicines?: No Do you have trouble getting transportation to medical appointments?: No Do you have trouble paying your heating and electricity bill?: I choose not to answer this question Do you have trouble taking care of your child, family member or friend?: No Do you have trouble with day-to-day activities such as bathing, preparing meals, shopping, managing finances, etc.?: No Are you currently unemployed and looking for a job?: No Are you interested in more education?: No Please select the resources that you would like help with: None Currently or been in a relationship where the following occur: No concerns reported THRIVE Score: 0 DREW-7 AMB Questionnaire DREW-7 Date DREW - 7 assessed: 11/30/23 Source: Developed by Drs. Eduardo Foss, Sara Mcclure, Pascual Willoughby and colleagues, with an educational jamee from [employer]. Physical exam (Primary Care) Tobacco/Smoking Status: Tobacco use Status Tobacco use date assessed 11/20/24 04/13/25 15:29 Patient Tobacco Use Status Former Tobacco user 04/13/25 15:29 e-Cigarette/Vaping Use Never Used 04/13/25 15:29 Thrive Assessment: Date of Thrive Assessment Date Thrive assessed 08/15/24 04/13/25 15:29 Currently or been in a relationship where the following occur: No concerns reported Coding Level of Care Code Est Pt Level 4 (30607) Diagnoses Hospital discharge follow-up Z09 Sepsis, due to unspecified organism, unspecified whether acute organ dysfunction present A41.9 Sepsis acute organ dysfunction status: unspecified Sepsis type: sepsis due to unspecified organism Type 2 diabetes mellitus with diabetic polyneuropathy, without long-term current use of insulin E11.42 Diabetes mellitus complication detail: with polyneuropathy Diabetes mellitus complication status: with neurologic complications Diabetes mellitus care home insulin use: without care home use Assessment & Plan Assessment & Plan (1) Hospital discharge follow-up: Code(s): Z09 - Encounter for follow-up examination after completed treatment for conditions other than malignant neoplasm Category: Medical (2) Sepsis: Code(s): A41.9 - Sepsis, unspecified organism Category: Medical Qualifiers: Sepsis acute organ dysfunction status: unspecified Sepsis type: sepsis due to unspecified organism Qualified Code(s): A41.9 - Sepsis, unspecified organism (3) Type 2 diabetes mellitus: Code(s): E11.9 - Type 2 diabetes mellitus without complications Category: Medical Qualifiers: Diabetes mellitus complication detail: with polyneuropathy Diabetes mellitus complication status: with neurologic complications 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 Medications reconciled. Recurrent UTI. continues urogynecology follow up Diabetes-needs CGM. unable to check own FS due to parkinson and h/o CVA HTN. Improved control Orders: Orders Complete Blood Count Auto Diff 04/13/25 D64.9 - Anemia, unspecified Medications: New Eliquis (apixaban) May pay out of pocket 5 mg PO BID 14 tabs 0RF NS magnesium oxide 400 mg PO BID 180 tabs 3RF Dexcom G7 Sensor (blood-glucose sensor) every 15 days 6 ea 3RF NS E11.42 - Type 2 diabetes mellitus with diabetic polyneuropathy, G20.A2 - Parkinson's disease without dyskinesia, with fluctuations, G20.C - Parkinsonism, unspecified, Z86.73 - Personal history of transient ischemic attack (TIA), and cerebral infarction without residual deficits Dexcom G7 Talkback Host (blood-glucose,spinning 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,cont) As directed 1 ea 0RF NS E11.42 - Type 2 diabetes mellitus with diabetic polyneuropathy, G20.C - Parkinsonism, unspecified, Z86.73 - Personal history of transient ischemic attack (TIA), and cerebral infarction without residual deficits Eliquis (apixaban) 5 mg PO BID 180 tabs 3RF NS amlodipine 5 mg PO DAILY 90 tabs 3RF Contour Meter (blood-glucose meter) once daily 1 ea 0RF NS E11.42 - Type 2 diabetes mellitus with diabetic polyneuropathy Changed From losartan 50 mg PO DAILY 90 tabs 3RF To losartan 50 mg PO BID 180 tabs 3RF From gabapentin 300 mg (3 x 100 mg) PO BID 180 caps 0RF To gabapentin 300 mg (3 x 100 mg) PO BID 540 caps 3RF 90 days Discontinued magnesium oxide Discontinued Reason: Doctor's Order 250 mg (0.625 x 400 mg magnesium) PO DAILY 90 tabs 3RF
== END 2025-04-13 15:57 | disposition home or self-care (01) ==
LOC: HO.HMCFM 15:07
PROVIDERS: PCP Internal Medicine; Visit Provider Internal Medicine
DX: Z09 Encounter for follow-up examination after completed treatment for conditions other than malignant neoplasm (principal); A41.9 Sepsis, unspecified organism; E11.42 Type 2 diabetes mellitus with diabetic polyneuropathy